=== PATIENT | female | born 1940 | race Caucasian/White ===

== ENCOUNTER → 2018-06-14 01:57 | Outpatient (CLI) | payer OTHER, SELFPAY ==
[2018-06-14 11:30] LABS: Prothrombin Time 41.7 sec (9.3-10.8)
[2018-06-14 12:05] LABS: INR 4.5 (1.0-3.5)
== END ==
PROVIDERS: PCP Family Medicine; Visit Provider Family Medicine
DX: I26.99 Other pulmonary embolism without acute cor pulmonale (principal); Z79.01 Long term (current) use of anticoagulants
CPT/HCPCS: 36415; 85610

== ENCOUNTER → 2018-06-17 01:56 | Outpatient (CLI) | payer OTHER, SELFPAY ==
[2018-06-17 12:01] LABS: INR 1.5 (1.0-3.5); Prothrombin Time 14.2 sec (9.3-10.8)
== END ==
PROVIDERS: PCP Family Medicine; Visit Provider Family Medicine
DX: I26.99 Other pulmonary embolism without acute cor pulmonale (principal); Z79.01 Long term (current) use of anticoagulants
CPT/HCPCS: 36415; 85610

== ENCOUNTER → 2018-06-24 02:25 | Outpatient (CLI) | payer OTHER, SELFPAY ==
[2018-06-24 11:28] LABS: Prothrombin Time 17.7 sec (9.3-10.8)
[2018-06-24 11:53] LABS: INR 1.8 (1.0-3.5)
== END ==
PROVIDERS: PCP Family Medicine; Visit Provider Family Medicine
DX: I26.99 Other pulmonary embolism without acute cor pulmonale (principal); Z79.01 Long term (current) use of anticoagulants
CPT/HCPCS: 36415; 85610

== ENCOUNTER → 2018-07-01 02:55 | Outpatient (CLI) | payer OTHER, SELFPAY ==
[2018-07-01 11:13] LABS: Prothrombin Time 24.1 sec (9.3-10.8)
[2018-07-01 11:21] LABS: INR 2.5 (1.0-3.5)
== END ==
PROVIDERS: PCP Family Medicine; Visit Provider Family Medicine
DX: I26.99 Other pulmonary embolism without acute cor pulmonale (principal); Z79.01 Long term (current) use of anticoagulants
CPT/HCPCS: 36415; 85610

== ENCOUNTER 2018-07-09 02:35 | Outpatient (CLI) | payer OTHER, SELFPAY ==
[2018-07-09 11:52] LABS: INR 3.9 (1.0-3.5); Prothrombin Time 36.1 sec (9.3-10.8)
== END 2018-07-09 02:55 ==
LOC: LBO 02:36 → LOS 11:02
PROVIDERS: PCP Family Medicine; Visit Provider Family Medicine
DX: I26.99 Other pulmonary embolism without acute cor pulmonale (principal); Z79.01 Long term (current) use of anticoagulants
CPT/HCPCS: 36415; 85610

== ENCOUNTER 2018-07-16 01:37 | Outpatient (CLI) | payer OTHER, SELFPAY ==
[2018-07-16 11:11] LABS: INR 1.9 (1.0-3.5); Prothrombin Time 18.4 sec (9.3-10.8)
== END 2018-07-16 01:57 ==
LOC: LBO 01:38 → LOS 11:12
PROVIDERS: PCP Family Medicine; Visit Provider Family Medicine
DX: I26.99 Other pulmonary embolism without acute cor pulmonale (principal); Z79.01 Long term (current) use of anticoagulants
CPT/HCPCS: 36415; 85610

== ENCOUNTER 2018-07-23 02:08 | Outpatient (CLI) | payer OTHER, SELFPAY ==
[2018-07-23 11:23] LABS: INR 3.4 (1.0-3.5); Prothrombin Time 31.4 sec (9.3-10.8)
== END 2018-07-23 02:28 ==
PROVIDERS: PCP Family Medicine; Visit Provider Family Medicine
DX: I26.99 Other pulmonary embolism without acute cor pulmonale (principal); Z79.01 Long term (current) use of anticoagulants
CPT/HCPCS: 36415; 85610

== ENCOUNTER 2018-07-30 01:52 | Outpatient (CLI) | payer OTHER, SELFPAY ==
[2018-07-30 11:19] LABS: INR 2.5 (1.0-3.5); Prothrombin Time 23.7 sec (9.3-10.8)
[2018-07-30 11:32] LABS: ALT 14 U/L (12-78); AST 19 U/L (15-37); Alkaline Phosphatase 90 U/L (46-116); Anion Gap 8.6 mmol/L (3-11); BUN 20 mg/dL (7-18); Bilirubin, Total 0.4 mg/dL (0.2-1.0); CO2 27.4 mmol/L (21.0-32.0); CREATININE 0.82 mg/dL (0.55-1.02); Calcium 8.1 mg/dL (8.5-10.1); Chloride 107 mmol/L (98-107); Glucose 115 mg/dL (70-100); Potassium 3.9 mmol/L (3.5-5.1); Sodium 143 mmol/L (136-145); Total Protein 6.3 g/dL (6.4-8.2)
== END 2018-07-30 02:12 ==
PROVIDERS: PCP Family Medicine; Visit Provider Family Medicine
DX: I26.99 Other pulmonary embolism without acute cor pulmonale (principal); Z79.01 Long term (current) use of anticoagulants; I10 Essential (primary) hypertension
CPT/HCPCS: 36415; 80053; 85610

== ENCOUNTER 2018-08-20 01:42 | Outpatient (CLI) | payer OTHER, SELFPAY ==
[2018-08-20 08:54] LABS: INR 1.8 (1.0-3.5); Prothrombin Time 17.6 sec (9.3-10.8)
== END 2018-08-20 02:02 ==
PROVIDERS: PCP Family Medicine; Visit Provider Family Medicine
DX: I26.99 Other pulmonary embolism without acute cor pulmonale (principal); Z79.01 Long term (current) use of anticoagulants
CPT/HCPCS: 36415; 85610

== ENCOUNTER 2018-08-27 01:18 | Outpatient (CLI) | payer OTHER, SELFPAY ==
[2018-08-27 11:08] LABS: INR 1.9 (1.0-3.5); Prothrombin Time 17.8 sec (9.3-10.8)
== END 2018-08-27 01:38 ==
PROVIDERS: PCP Family Medicine; Visit Provider Family Medicine
DX: I26.99 Other pulmonary embolism without acute cor pulmonale (principal); Z79.01 Long term (current) use of anticoagulants
CPT/HCPCS: 36415; 85610

== ENCOUNTER 2018-09-10 02:11 | Outpatient (CLI) | payer OTHER, SELFPAY ==
[2018-09-10 11:33] LABS: INR 1.3 (1.0-3.5); Prothrombin Time 12.4 sec (9.3-10.8)
== END 2018-09-10 02:31 ==
PROVIDERS: PCP Family Medicine; Visit Provider Family Medicine
DX: I26.99 Other pulmonary embolism without acute cor pulmonale (principal); Z79.01 Long term (current) use of anticoagulants
CPT/HCPCS: 36415; 85610

== ENCOUNTER 2018-09-17 01:22 | Outpatient (CLI) | payer OTHER, SELFPAY ==
[2018-09-17 11:31] LABS: INR 2.1 (1.0-3.5); Prothrombin Time 19.7 sec (9.3-10.8)
== END 2018-09-17 01:42 ==
PROVIDERS: PCP Family Medicine; Visit Provider Family Medicine
DX: I26.99 Other pulmonary embolism without acute cor pulmonale (principal); Z79.01 Long term (current) use of anticoagulants
CPT/HCPCS: 36415; 85610

== ENCOUNTER 2018-09-24 02:00 | Outpatient (CLI) | payer OTHER, SELFPAY ==
[2018-09-24 11:25] LABS: INR 3.2 (1.0-3.5); Prothrombin Time 30.2 sec (9.3-10.8)
== END 2018-09-24 02:20 ==
PROVIDERS: PCP Family Medicine; Visit Provider Family Medicine
DX: I26.99 Other pulmonary embolism without acute cor pulmonale (principal); Z79.01 Long term (current) use of anticoagulants
CPT/HCPCS: 36415; 85610

== ENCOUNTER 2018-09-30 01:59 | Outpatient (CLI) | payer OTHER, SELFPAY ==
[2018-09-30 07:40] LABS: Prothrombin Time 40.6 sec (9.3-10.8)
[2018-09-30 08:06] LABS: INR 4.4 (1.0-3.5)
== END 2018-09-30 02:19 ==
PROVIDERS: PCP Family Medicine; Visit Provider Family Medicine
DX: I26.99 Other pulmonary embolism without acute cor pulmonale (principal); Z79.01 Long term (current) use of anticoagulants
CPT/HCPCS: 36415; 85610

== ENCOUNTER 2018-10-07 08:48 | Outpatient (CLI) | payer OTHER, SELFPAY ==
[2018-10-07 13:11] LABS: INR 1.7 (1.0-3.5); Prothrombin Time 16.2 sec (9.3-10.8)
== END 2018-10-07 09:08 ==
PROVIDERS: PCP Family Medicine; Visit Provider Family Medicine
DX: I26.99 Other pulmonary embolism without acute cor pulmonale (principal); Z79.01 Long term (current) use of anticoagulants
CPT/HCPCS: 36415; 85610

== ENCOUNTER 2018-10-10 14:13 | Outpatient (REF) | payer OTHER, SELFPAY ==
[2018-10-10 20:00] LABS: Bilirubin Negative (Negative); Blood Large (Negative); Clarity Cloudy; Glucose Negative (Negative); Ketones Negative (Negative); Leukocyte Esterase Small (Negative); Nitrite Positive (Negative); Specific Gravity >= 1.030 (1.005-1.025); Urobilinogen 0.2 EU/dL (Up TO 0.2)
[2018-10-10 20:09] LABS: Bacteria Many HPF (Negative); WBC >50 HPF (0-5)
[2018-10-10 20:10] LABS: C & S Indicated? Yes
== END 2018-10-10 14:33 ==
LOC: LBN 14:13
PROVIDERS: PCP Family Medicine; Visit Provider Family Medicine
DX: N39.0 Urinary tract infection, site not specified (principal)
CPT/HCPCS: 81003; 81015; 87086; 87186

== ENCOUNTER 2018-10-15 07:54 | Outpatient (CLI) | payer OTHER, SELFPAY ==
[2018-10-15 11:18] LABS: INR 1.5 (1.0-3.5); Prothrombin Time 14.2 sec (9.3-10.8)
== END 2018-10-15 08:14 ==
PROVIDERS: PCP Family Medicine; Visit Provider Family Medicine
DX: I26.99 Other pulmonary embolism without acute cor pulmonale (principal); Z79.01 Long term (current) use of anticoagulants
CPT/HCPCS: 36415; 85610

== ENCOUNTER 2018-11-15 00:16 | Outpatient (CLI) | payer OTHER, SELFPAY ==
[2018-11-15 09:13] LABS: CREATININE 0.83 mg/dL (0.55-1.02)
[2018-11-15 09:19] LABS: Prothrombin Time 10.2 sec (9.3-11.0)
--- NOTE | 2018-11-15 09:45 | DI.CT_ITS ---
SYMPTOM/DIAGNOSIS: SOB, H/OPE, R06.[address]: CT angiography was performed with multi slice acquisition and multi planar and 3D reconstruction. Comparison is made with routine chest CT dated 01/15/16. The exam is somewhat limited by respiratory motion. The pulmonary arteries and aorta are well opacified with IV contrast. Pulmonary emboli are seen in both upper and lower lobes. The right main pulmonary artery and lower lobe branches as well as a few upper lobe branches contain thrombus. Non occluding thrombus is seen extending across both main pulmonary arteries. Filling defects are also seen in the left lower lobe pulmonary artery branches as well as a single left upper lobe branch. The pulmonary arteries appear enlarged, increasing when compared with the previous exam. The previous exam also showed some pulmonary artery enlargement. The aorta is normal in diameter and shows mild calcification. There is left atrial and left ventricular enlargement as well as coronary artery calcifications. Evaluation of the lungs is somewhat limited due to respiratory motion. Underlying changes of centrilobular emphysema are noted. No pleural or pericardial effusions or infiltrates are present. Degenerative changes are seen in the spine. There is a small hiatal hernia. Stones are noted in the dependent portion of the gallbladder. There is no abnormal gallbladder distension. The gallbladder is not fully included on the exam. The liver and spleen are unremarkable. There is an area of scarring at the upper pole of the right kidney. IMPRESSION: Bilateral pulmonary emboli.
[2018-11-15] MEDS: Omnipaque 350 MG/ML 100 ML BTL IJ (09:47)
== END 2018-11-15 00:36 ==
PROVIDERS: PCP Family Medicine; Visit Provider Family Medicine
DX: I26.99 Other pulmonary embolism without acute cor pulmonale (principal); R06.02 Shortness of breath; Z79.01 Long term (current) use of anticoagulants; K44.9 Diaphragmatic hernia without obstruction or gangrene
CPT/HCPCS: 36415; 71275; 82565; 85610; J3490

== ENCOUNTER 2018-11-25 00:55 | Outpatient (RCR) | payer OTHER, SELFPAY ==
[2018-11-17 11:24] LABS: Prothrombin Time 10.4 sec (9.3-11.0)
[2018-11-19 11:46] LABS: INR 1.5 (0.9-1.1); Prothrombin Time 14.7 sec (9.3-11.0)
[2018-11-20 11:45] LABS: Abs Immature Grans 0.01 k/cumm (0.0-0.09); Absolute Basophil Count 0.03 k/cumm (0.0-0.2); Absolute Eosinophil Count 0.07 k/cumm (0.0-0.7); Absolute Lymphocyte Count 1.11 k/cumm (1.2-3.4); Absolute Monocyte Count 0.54 k/cumm (0.11-0.7); Absolute Neutrophil Count 3.74 k/cumm (1.2-6.7); Basophils % 0.5; Eosinophils % 1.3; HCT 38.2 % (36.0-46.0); HGB 12.2 g/dL (12.0-15.5); Immature Grans % 0.2; Lymphocytes % 20.2; Mean Corp. HGB Concentration 31.9 g/dL (32.0-36.0); Mean Corpuscular Hemoglobin 30.1 pg (27.0-33.0); Mean Corpuscular Volume 94.3 fL (80-95); Monocytes % 9.8; Platelet Count 227 x1000/uL (130-400); RBC 4.05 m/cumm (4.00-5.20); RBC Distribution Width 14.9 % (11.7-14.6)
[2018-11-20 11:59] LABS: INR 1.7 (0.9-1.1); Prothrombin Time 16.7 sec (9.3-11.0)
[2018-11-21 11:32] LABS: INR 1.7 (0.9-1.1); Prothrombin Time 17.4 sec (9.3-11.0)
[2018-11-22 08:49] LABS: Prothrombin Time 20.5 sec (9.3-11.0)
== END 2018-12-05 23:59 | disposition home or self-care (01) ==
LOC: INF 00:55
PROVIDERS: PCP Family Medicine; Visit Provider Family Medicine
DX: I26.99 Other pulmonary embolism without acute cor pulmonale (principal); Z79.01 Long term (current) use of anticoagulants
CPT/HCPCS: 36415; 96365; 96372; 85025; 85610; J1650

== ENCOUNTER 2018-11-25 09:18 | Outpatient (CLI) | payer OTHER, SELFPAY ==
[2018-11-25 11:42] LABS: INR 2.1 (0.9-1.1); Prothrombin Time 21.2 sec (9.3-11.0)
== END 2018-11-25 09:38 ==
PROVIDERS: PCP Family Medicine; Visit Provider Family Medicine
DX: I26.99 Other pulmonary embolism without acute cor pulmonale (principal); Z79.01 Long term (current) use of anticoagulants
CPT/HCPCS: 36415; 85610

== ENCOUNTER 2018-11-28 07:00 | Outpatient (CLI) | payer OTHER, SELFPAY ==
[2018-11-28 12:11] LABS: INR 3.8 (0.9-1.1)
== END 2018-11-28 07:20 ==
PROVIDERS: PCP Family Medicine; Visit Provider Family Medicine
DX: I26.99 Other pulmonary embolism without acute cor pulmonale (principal); Z79.01 Long term (current) use of anticoagulants
CPT/HCPCS: 36415; 85610

== ENCOUNTER 2018-12-05 01:51 | Outpatient (CLI) | payer OTHER, SELFPAY ==
[2018-12-05 11:51] LABS: INR 1.9 (0.9-1.1); Prothrombin Time 19.4 sec (9.3-11.0)
== END 2018-12-05 02:11 ==
PROVIDERS: PCP Family Medicine; Visit Provider Family Medicine
DX: I26.99 Other pulmonary embolism without acute cor pulmonale (principal); Z79.01 Long term (current) use of anticoagulants
CPT/HCPCS: 36415; 85610

== ENCOUNTER 2018-12-11 07:48 | Outpatient (CLI) | payer OTHER, SELFPAY ==
[2018-12-11 11:33] LABS: INR 2.1 (0.9-1.1); Prothrombin Time 21.1 sec (9.3-11.0)
== END 2018-12-11 08:08 ==
PROVIDERS: PCP Family Medicine; Visit Provider Family Medicine
DX: I26.99 Other pulmonary embolism without acute cor pulmonale (principal); Z79.01 Long term (current) use of anticoagulants
CPT/HCPCS: 36415; 85610

== ENCOUNTER 2019-01-06 02:34 | Outpatient (CLI) | payer OTHER, SELFPAY ==
[2019-01-06 12:23] LABS: Prothrombin Time 10.3 sec (9.3-11.0)
== END 2019-01-06 02:54 ==
PROVIDERS: PCP Family Medicine; Visit Provider Family Medicine
DX: I26.99 Other pulmonary embolism without acute cor pulmonale (principal); Z79.01 Long term (current) use of anticoagulants
CPT/HCPCS: 36415; 85610

== ENCOUNTER 2019-02-26 15:28 | Emergency (ER) | payer OTHER, SELFPAY ==
[2019-02-26 15:45] VITALS: BP 164/72; PULSE 78; RESP 20; TEMP 36.7; O2SAT 95
--- NOTE | 2019-02-26 15:57 | W.ED.GENAD ---
Discharge Plan Disposition Patient Disposition: HOME Condition: Stable Discharge Details Chief Complaint: Urinary Clinical Impression: Acute UTI Primary Care Provider: Caridad Sánchez ED Provider: Sb Paul Home Meds and New Rx's Prescriptions: New ciprofloxacin HCl 500 mg tablet 500 mg PO BID Qty: 14 RF: 0 No Action atenolol 25 mg tablet 25 mg PO DAILY Qty: 90 RF: 4 furosemide 40 mg tablet 40 mg PO DAILY Qty: 90 RF: 4 Eliquis 5 mg tablet 5 mg PO BID Qty: 60 RF: 12 Discharge Instructions Instructions: Urinary Tract Infection in Women (ED) Medical Decision Making 79 yo female comes in with burning and frequency of urination since around 12 this afternoon similar to prior uti's. She denies fevers, abdominal pain or christianne pain and appears well systemically without cva tendernress so doubt sepsis or pyelo. will check UA as likely has cystitis ua consistent with uti, will start abx and have her f/u with pcp and return precautions given Differential Diagnosis cystitis, uti Lab Data Lab results reviewed: Yes I reviewed the patient's lab results. HPI General Mode of arrival: ambulatory. Date/Time Provider Initiated Documentation: 02/26/19 15:51. Limitations to Documentation: no limitations. Information obtained by: patient. History of Present Illness 79 year old F presents to the emergency department with the chief complaint of frequency and urinary burning, described as moderate, Patient started experiencing this hour(s) (5) and it has been constant. No relieving factors improve symptom(s), No exacerbating factors reported . Patient notes no other symptoms.. Patient did receive the following treatments prior to arrival, none Related Data Home Medications Medication Instructions Recorded Confirmed apixaban 5 mg tablet 5 mg PO BID #60 tab 11/21/18 02/11/19 atenolol 25 mg tablet 25 mg PO DAILY #90 tab-cap 02/11/19 02/11/19 furosemide 40 mg tablet 40 mg PO DAILY #90 tab-cap 02/11/19 02/11/19 ciprofloxacin HCl 500 mg PO BID #14 tab 02/26/19 Previous Rx's Medication Instructions Recorded apixaban 5 mg tablet 5 mg PO BID #60 tab 11/21/18 atenolol 25 mg tablet 25 mg PO DAILY #90 tab-cap 02/11/19 furosemide 40 mg tablet 40 mg PO DAILY #90 tab-cap 02/11/19 ciprofloxacin HCl 500 mg PO BID #14 tab 02/26/19 Allergies Allergy/AdvReac Type Severity Reaction Status Date / Time atorvastatin AdvReac Intermediate Unverified 02/11/19 14:12 General Stated Complaint: Urinary SUHA: 4 Review of Systems Review of Systems All systems reviewed & are unremarkable except as noted in HPI and below Constitutional Denies chills, Denies fever(s) and Denies weakness ENT Denies change in voice Cardiovascular Denies chest pain and Denies dyspnea Respiratory Denies cough and Denies dyspnea Gastrointestinal Denies abdominal pain, Denies nausea and Denies vomiting Neurologic Denies weakness [facility] Medical History Vitamin D deficiency (Chronic 03/11/09) Urinary incontinence (Chronic 11/10/14) Stenosis of carotid artery (Chronic 01/20/16) Pulmonary embolus (Chronic 05/10/15) Peripheral venous insufficiency (Chronic 12/03/08) Peripheral edema (Chronic 07/31/16) Low back pain (Chronic 03/04/06) Hyperlipidemia (Chronic 04/15/13) Hip pain (Chronic) Essential hypertension (Chronic 10/31/13) Dysphagia (Chronic 01/01/18) Depressive disorder (Chronic) Decreased muscle tone (Chronic) Cerebrovascular accident (CVA) (Chronic 01/20/16) Cerebral arteriovenous malformation (Chronic) Benign paroxysmal vertigo, unspecified ear (Resolved) Cataract (Resolved) Cellulitis (Resolved) History of tobacco use (Resolved) Oral ulcer (Resolved) Polyp of colon (Resolved) Poor balance (Resolved) Primary malignant neoplasm of larynx (Resolved) Seizure (Resolved) TMJ (temporomandibular joint disorder) (Resolved) Transient ischemic attack (Resolved 08/04/03) Vaginal lesion (Resolved) Visual disturbance (Resolved) Vulvovaginitis (Resolved) Benign paroxysmal vertigo Cerebral vascular malformation Depression Hyperlipidemia Hypertension Lumbago Venous insufficiency Vitamin D deficiency Surgical History History of bilateral tubal ligation (Resolved) Extraction of cataract Ligation of fallopian tube Family History Mother Vaginal cancer Father Heart disease COPD (chronic obstructive pulmonary disease) Sister Heart disease Lung cancer Maternal Grandmother Heart disease Paternal Grandmother Diabetes Son Substance abuse Heart disease Sister No problems noted. Sister No problems noted. Son RA (rheumatoid arthritis) Daughter No problems noted. Daughter No problems noted. Paternal Grandfather No problems noted. Social History Smoking/Tobacco Use Status: Former Tobacco Use Quit Date: 06/05/01 Second Hand Exposure: Yes Alcohol Intake: current Alcohol Intake frequency: holidays/special occasions only Alcohol type: wine Drug use: Never Substance use type: does not use Caregiver/Support person: No Household members: none Housing: house Do you need help understanding health information?: Rarely Pets and animals: No Sexually active: No Current gender identity: female What is your relationship status?: How often do you talk on the phone with friends or family?: decline to answer How often do you get together with friends or relatives?: once per week How often do you attend moravian or restorationism services?: decline to answer Do you belong to any clubs or organized social groups?: no Panel score (0-1 are the most socially isolated patients): 0 What type of physical activity do you participate in: decline to answer Duration: decline to answer Frequency: decline to answer Bethany/Yarsani: Confucianist Special bethany needs: No Seatbelt use: always Helmet use: No Drive intox or ride w/intox emergency medical technician/driver: No Do you feel safe at home: Yes Do you feel safe in your relationship?: Yes Exam Const General: no acute distress Orientation: alert HENMT Head: normal to inspection Ears: external ears normal General nose exam: external nose normal Mouth: moist mucous membranes Eyes General: appearance normal, both eyes and all related structures Neck Neck: normal visual inspection Resp Effort & Inspection: normal respiratory effort and able to speak in complete sentences Cardio Rate: regular rate Skin General skin exam: no rashes or lesions noted Neuro General: alert and oriented x3 Extrem General: normal to inspection Psych Mental Status: mental status grossly normal Course Vital Signs Temperature 36.7 C 02/26/19 15:45 Pulse 78 02/26/19 15:45 Respiratory Rate 20 02/26/19 15:45 Blood Pressure 164/72 H 02/26/19 15:45 Pulse Oximetry 95 02/26/19 15:45 Temperature 36.7 C 02/26/19 15:45 Temperature Source Temporal Artery Scan 02/26/19 15:45 Pulse 78 02/26/19 15:45 Respiratory Rate 20 02/26/19 15:45 Respiratory Effort Non-Labored 02/26/19 15:50 Blood Pressure 164/72 H 02/26/19 15:45 Pulse Oximetry 95 02/26/19 15:45 Pain Level 8 02/26/19 15:50
--- NOTE | 2019-02-26 16:01 | ED.GENADUL_ITS ---
Discharge Plan Disposition Patient Disposition: HOME Condition: Stable Discharge Details Chief Complaint: Urinary Clinical Impression: Acute UTI Primary Care Provider: Caridad Sánchez ED Provider: Sb Paul Home Meds and New Rx's Prescriptions: New ciprofloxacin HCl 500 mg tablet 500 mg PO BID Qty: 14 RF: 0 No Action atenolol 25 mg tablet 25 mg PO DAILY Qty: 90 RF: 4 furosemide 40 mg tablet 40 mg PO DAILY Qty: 90 RF: 4 Eliquis 5 mg tablet 5 mg PO BID Qty: 60 RF: 12 Discharge Instructions Instructions: Urinary Tract Infection in Women (ED) Medical Decision Making 79 yo female comes in with burning and frequency of urination since around 12 this afternoon similar to prior uti's. She denies fevers, abdominal pain or christianne pain and appears well systemically without cva tendernress so doubt sepsis or pyelo. will check UA as likely has cystitis ua consistent with uti, will start abx and have her f/u with pcp and return precautions given Differential Diagnosis cystitis, uti Lab Data Lab results reviewed: Yes I reviewed the patient's lab results. HPI General Mode of arrival: ambulatory . Date/Time Provider Initiated Documentation: 02/26/19 15:51 . Limitations to Documentation: no limitations . Information obtained by: patient . History of Present Illness 79 year old F presents to the emergency department with the chief complaint of frequency and urinary burning, described as moderate, Patient started experiencing this hour(s) (5) and it has been constant. No relieving factors improve symptom(s), No exacerbating factors reported . Patient notes no other symptoms.. Patient did receive the following treatments prior to arrival, none Related Data Home Medications Medication Instructions Recorded Confirmed apixaban 5 mg tablet 5 mg PO BID #60 tab 11/21/18 02/11/19 atenolol 25 mg tablet 25 mg PO DAILY #90 tab-cap 02/11/19 02/11/19 furosemide 40 mg tablet 40 mg PO DAILY #90 tab-cap 02/11/19 02/11/19 ciprofloxacin HCl 500 mg PO BID #14 tab 02/26/19 Previous Rx's Medication Instructions Recorded apixaban 5 mg tablet 5 mg PO BID #60 tab 11/21/18 atenolol 25 mg tablet 25 mg PO DAILY #90 tab-cap 02/11/19 furosemide 40 mg tablet 40 mg PO DAILY #90 tab-cap 02/11/19 ciprofloxacin HCl 500 mg PO BID #14 tab 02/26/19 Allergies Allergy/AdvReac Type Severity Reaction Status Date / Time atorvastatin AdvReac Intermediate Unverified 02/11/19 14:12 General Stated Complaint: Urinary SUHA: 4 Review of Systems Review of Systems All systems reviewed & are unremarkable except as noted in HPI and below Constitutional Denies chills, Denies fever(s) and Denies weakness ENT Denies change in voice Cardiovascular Denies chest pain and Denies dyspnea Respiratory Denies cough and Denies dyspnea Gastrointestinal Denies abdominal pain, Denies nausea and Denies vomiting Neurologic Denies weakness [facility] Medical History Vitamin D deficiency (Chronic 03/11/09) Urinary incontinence (Chronic 11/10/14) Stenosis of carotid artery (Chronic 01/20/16) Pulmonary embolus (Chronic 05/10/15) Peripheral venous insufficiency (Chronic 12/03/08) Peripheral edema (Chronic 07/31/16) Low back pain (Chronic 03/04/06) Hyperlipidemia (Chronic 04/15/13) Hip pain (Chronic) Essential hypertension (Chronic 10/31/13) Dysphagia (Chronic 01/01/18) Depressive disorder (Chronic) Decreased muscle tone (Chronic) Cerebrovascular accident (CVA) (Chronic 01/20/16) Cerebral arteriovenous malformation (Chronic) Benign paroxysmal vertigo, unspecified ear (Resolved) Cataract (Resolved) Cellulitis (Resolved) History of tobacco use (Resolved) Oral ulcer (Resolved) Polyp of colon (Resolved) Poor balance (Resolved) Primary malignant neoplasm of larynx (Resolved) Seizure (Resolved) TMJ (temporomandibular joint disorder) (Resolved) Transient ischemic attack (Resolved 08/04/03) Vaginal lesion (Resolved) Visual disturbance (Resolved) Vulvovaginitis (Resolved) Benign paroxysmal vertigo Cerebral vascular malformation Depression Hyperlipidemia Hypertension Lumbago Venous insufficiency Vitamin D deficiency Surgical History History of bilateral tubal ligation (Resolved) Extraction of cataract Ligation of fallopian tube Family History Mother Vaginal cancer Father Heart disease COPD (chronic obstructive pulmonary disease) Sister Heart disease Lung cancer Maternal Grandmother Heart disease Paternal Grandmother Diabetes Son Substance abuse Heart disease Sister No problems noted. Sister No problems noted. Son RA (rheumatoid arthritis) Daughter No problems noted. Daughter No problems noted. Paternal Grandfather No problems noted. Social History Smoking/Tobacco Use Status: Former Tobacco Use Quit Date: 06/05/01 Second Hand Exposure: Yes Alcohol Intake: current Alcohol Intake frequency: holidays/special occasions only Alcohol type: wine Drug use: Never Substance use type: does not use Caregiver/Support person: No Household members: none Housing: house Do you need help understanding health information?: Rarely Pets and animals: No Sexually active: No Current gender identity: female What is your relationship status?: How often do you talk on the phone with friends or family?: decline to answer How often do you get together with friends or relatives?: once per week How often do you attend caodaism or jehovah's witness services?: decline to answer Do you belong to any clubs or organized social groups?: no Panel score (0-1 are the most socially isolated patients): 0 What type of physical activity do you participate in: decline to answer Duration: decline to answer Frequency: decline to answer Bethany/Mosque: Yazidism Special bethany needs: No Seatbelt use: always Helmet use: No Drive intox or ride w/intox ready mix truck driver: No Do you feel safe at home: Yes Do you feel safe in your relationship?: Yes Exam Const General: no acute distress Orientation: alert HENMT Head: normal to inspection Ears: external ears normal General nose exam: external nose normal Mouth: moist mucous membranes Eyes General: appearance normal, both eyes and all related structures Neck Neck: normal visual inspection Resp Effort & Inspection: normal respiratory effort and able to speak in complete sentences Cardio Rate: regular rate Skin General skin exam: no rashes or lesions noted Neuro General: alert and oriented x3 Extrem General: normal to inspection Psych Mental Status: mental status grossly normal Course Vital Signs Temperature 36.7 C 02/26/19 15:45 Pulse 78 02/26/19 15:45 Respiratory Rate 20 02/26/19 15:45 Blood Pressure 164/72 H 02/26/19 15:45 Pulse Oximetry 95 02/26/19 15:45 Temperature 36.7 C 02/26/19 15:45 Temperature Source Temporal Artery Scan 02/26/19 15:45 Pulse 78 02/26/19 15:45 Respiratory Rate 20 02/26/19 15:45 Respiratory Effort Non-Labored 02/26/19 15:50 Blood Pressure 164/72 H 02/26/19 15:45 Pulse Oximetry 95 02/26/19 15:45 Pain Level 8 02/26/19 15:50
[2019-02-26 16:40] LABS: Bilirubin Negative (Negative); Blood Trace-intact (Negative); Clarity Clear; Glucose Negative (Negative); Ketones Negative (Negative); Leukocyte Esterase Small (Negative); Nitrite Positive (Negative); Specific Gravity 1.025 (1.005-1.025); Urobilinogen 0.2 EU/dL (Up TO 0.2)
[2019-02-26 16:48] LABS: Bacteria Many HPF (Negative); C & S Indicated? No/Sq. Contamination; Casts Negative LPF (Negative); Crystals Negative HPF (Negative); Epithelial Cells Many HPF (Negative); Mucus Negative (Negative); RBC 20-50 (0-2); WBC >50 HPF (0-5)
[2019-02-26 16:59] VITALS: BP 164/72; PULSE 78; RESP 20; TEMP 36.7; O2SAT 95
== END 2019-02-26 16:59 | disposition home or self-care (01) ==
PROVIDERS: Emergency Provider Emergency Medicine; PCP Family Medicine
DX: N39.0 Urinary tract infection, site not specified (principal); I10 Essential (primary) hypertension
CPT/HCPCS: 99283; 81003; 81015

== ENCOUNTER 2019-06-04 01:09 | Outpatient (CLI) | payer OTHER, SELFPAY ==
[2019-06-04 10:08] LABS: BUN 15 mg/dL (7-18); CREATININE 0.74 mg/dL (0.55-1.02)
[2019-06-04] MEDS: Omnipaque 350 MG/ML 100 ML BTL IJ (11:21)
[2019-06-04] MEDS: Normal Saline Flush 10 ML SYR IVP (11:22)
--- NOTE | 2019-06-04 11:23 | DI.CT_ITS ---
SYMPTOM/DIAGNOSIS: J38.[address] NECK: The study was carried out with an intravenous administration of 100 cc of Omnipaque 350. The oral pharynx and nasopharynx and hypopharynx are normal. The larynx is normal. The retropharyngeal space is unremarkable. The submandibular and parotid glands appear intact. No abnormality involving the thyroid is seen. There is no evidence of lymphadenopathy. The trachea appears intact. Note is made of fluid in the upper pericardial recess around the ascending aorta and between the aorta and pulmonary artery most likely secondary to a pericardial effusion. Note is made of central lobular emphysema in the upper lobes. There is mild atherosclerotic changes involving the aorta with no evidence of aneurysm. Note is made of degenerative changes involving the discs in the cervical spine. The soft tissues are unremarkable. SUMMARY: Fluid in the upper pericardial recess most likely representing a pericardial effusion. Further evaluation with a chest CT could be obtained. Note is also made of emphysema in the upper lobes. The examination is otherwise unremarkable.
--- NOTE | 2019-06-04 17:19 | DI.VRAD_ITS ---
EXAM: CT Neck With Contrast EXAM DATE/TIME: 06/04/2019 11:21 AM CLINICAL HISTORY: 79 years old, female; Other: Vocal cord paralysis TECHNIQUE: Imaging protocol: Axial computed tomography images of the neck with intravenous contrast. Coronal and sagittal reformatted images were created and reviewed. Radiation optimization: All CT scans at this facility use at least one of these dose optimization techniques: automated exposure control; mA and/or kV adjustment per patient size (includes targeted exams where dose is matched to clinical indication); or iterative reconstruction. Contrast material: OMNIPAQUE 3502;Contrast volume: 100 ml;Contrast route: IV; COMPARISON: US CAROTID ULTRASOUND 01/21/2016 5:38 PM FINDINGS: Nasopharynx: Normal. Oropharynx: Normal. No significant tonsillar enlargement. Hypopharynx: Normal. Larynx: Normal. Normal epiglottis. Retropharyngeal space: Normal. Submandibular/Parotid glands: Normal. Glands are normal in size. Thyroid: Normal. No enlarged or calcified nodules. Lymph nodes: Normal. No lymphadenopathy. Trachea: Visualized trachea is unremarkable. Lungs: There is fluid in the upper pericardial recess around the ascending aorta and an between the aorta and pulmonary artery most likely secondary to pericardial effusion. Centrilobular emphysematous changes are present in the upper lobes. Vasculature: Aorta demonstrates mild atherosclerotic calcification. Bones/joints: There is degenerative changes with degenerative disc disease involving the cervical spine. There is curvature of the cervical spine apex right. Soft tissues: Normal. No significant soft tissue swelling. IMPRESSION: 1. Fluid in the upper pericardial recess most likely representing pericardial effusion. Followup CT the chest is recommended. 2. Changes of centrilobular emphysema in the upper lobes bilaterally. Dictated and Authenticated by: Stiven Sampson MD. Ordering:JASON Tenorio MD
== END 2019-06-04 01:29 ==
PROVIDERS: PCP Family Medicine; Visit Provider Otolaryngology
DX: J38.01 Paralysis of vocal cords and larynx, unilateral (principal); I31.3 Pericardial effusion (noninflammatory); J43.9 Emphysema, unspecified; I10 Essential (primary) hypertension; Z13.89 Encounter for screening for other disorder
CPT/HCPCS: 70491; 84520; 82565; J3490

== ENCOUNTER 2019-07-31 16:40 | Emergency (ER) | payer OTHER, SELFPAY ==
[2019-07-31] VITALS (16 sets, daily range): BP systolic 126–180; BP diastolic 66–74; PULSE 68–79; RESP 16–21; TEMP 36.9; O2SAT 93–99
--- NOTE | 2019-07-31 17:07 | W.ED.GENAD ---
Discharge Plan Disposition Patient Disposition: HOME Condition: Fair Discharge Details Chief Complaint: RespSymp Clinical Impression: URI (upper respiratory infection) Primary Care Provider: Caridad Sánchez ED Provider: Flaca Johnson Home Meds and New Rx's Prescriptions: Continued atenolol 25 mg tablet 25 mg PO DAILY Qty: 90 RF: 4 furosemide 40 mg tablet 40 mg PO DAILY Qty: 90 RF: 4 Eliquis 5 mg tablet 5 mg PO BID Qty: 60 RF: 12 Discharge Instructions Instructions: Upper Respiratory Infection (ED) Additional Instructions: Encourage hydration. You may use Tylenol as needed for discomfort. May try an antihistamine to help with your chronic cough. Try warm water and honey to help with cough. If you develop fever/chills, difficulty breathing, shortness of breath, chest pain, inability stay hydrated or other new/worsening symptoms please seek care urgently once again. Otherwise, please keep your follow-up appointment with primary care tomorrow. Referrals: Caridad Sánchez MD, PA [Primary Care Provider] - Discharge Data Discharge Date/Time-TO BE ENTERED AT DEPARTURE: 07/31/19 19:08 Medical Decision Making Patient is an 79-year-old female with complex past medical history presenting today with chief complaint of cough. Patient reports that 6 days ago she had multiple biopsies from her larynx at [facility]. Patient does have a history of cancer and there is concern for recurrent. States she has been feeling well in the postoperative., Has been on her Eliquis since postop day 1. Denies any pain, no sore throat. States that she began having cough last night as well as nasal congestion. States she been having some yellow sputum. Patient reports cough with yellow sputum x2 years but that this has increased consistent with infectious etiology beginning last night. Family reports that she has sounded laryngitic today. Patient denies any chest pain. Patient does have history of pulmonary embolism, has been taking her Eliquis as prescribed. She does not feel that this is a similar to symptoms she has had with pulmonary embolus historically. No known sick contacts. She has not had any hematemesis. On exam, patient is resting comfortably. Patient is an overweight female, appears nontoxic. She is initially noted to be hypertensive at 180/67 by nursing staff but when I evaluated the patient, her systolic was in the 130s. She is not hypoxic, is not tachycardic. Lungs are clear in all ferreira. Normal cardiac exam. Abdomen is benign. Normal HEENT exam. I do not note any cough while in with the patient. I do not see any blood in the posterior oropharynx. As the patient has reported a cough for the past 2 years with no known source, I will obtain chest x-ray particularly given her cancerous history. Chest x-ray was reviewed by radiologist: Lungs: There is mild scarring in the lungs especially the lung bases. Pleural space: Unremarkable. No pleural effusion. No pneumothorax. Heart/Mediastinum: Unremarkable. No cardiomegaly. Vasculature: There is moderate atherosclerosis of the thoracic aorta. Bones/joints: There is mild spondylosis in the thoracic spine. IMPRESSION: Chronic changes but no acute cardiopulmonary process. Discussed the x-ray as well as the incidentals with the patient and her family. Advised that her illness is likely viral. I do not see any evidence of bacterial infection I advised against any antibiotics at this point. She does have a follow-up with ENT next week to discuss the biopsy results. Patient [place] has an appointment scheduled for tomorrow with her primary care physician. Family particular is concerned for pulmonary embolus. However, the patient has not tachycardic, hypoxic, short of breath and has other source of her current symptoms i.e. congestion and yellow sputum, I do not feel that work-up for pulmonary embolus is necessary. I did discuss this at length with patient and her family. I did offer further evaluation including labs and CT scan with the patient who is adamant that she does not want any of these evaluations completed at this time. Encourage hydration. We discussed home and [id number] medications/remedies that may be of benefit. She was given strict return precautions. She will keep her primary care appointment for tomorrow for reevaluation. All the questions and concerns were addressed in agreement with this plan. HPI General Mode of arrival: ambulatory. Date/Time Provider Initiated Documentation: 07/31/19 17:07. Limitations to Documentation: no limitations. Information obtained by: patient, family (accompanied by daughter and grandaughter) and RN notes reviewed. History of Present Illness 79 year old F presents to the emergency department with the chief complaint of cough, described as moderate, with intensity rated at 1 (denies any pain with cough). Patient started experiencing this day(s) (started last night but mild, cough became more frequent today) and it has been constant. No relieving factors improve symptom(s), No exacerbating factors reported . Patient notes cough and shortness of breath (reports hearing my breathing when I cough); denies chest pain, diaphoresis, fever/chills, headaches, loss of appetite, malaise, nausea/vomiting, rash, syncope and weakness. Patient did receive the following treatments prior to arrival, none Related Data Home Medications Medication Instructions Recorded Confirmed apixaban 5 mg tablet 5 mg PO BID #60 tab 11/21/18 07/31/19 atenolol 25 mg tablet 25 mg PO DAILY #90 tab-cap 02/11/19 07/31/19 furosemide 40 mg tablet 40 mg PO DAILY #90 tab-cap 02/11/19 07/31/19 Previous Rx's Medication Instructions Recorded apixaban 5 mg tablet 5 mg PO BID #60 tab 11/21/18 atenolol 25 mg tablet 25 mg PO DAILY #90 tab-cap 02/11/19 furosemide 40 mg tablet 40 mg PO DAILY #90 tab-cap 02/11/19 Allergies Allergy/AdvReac Type Severity Reaction Status Date / Time atorvastatin AdvReac Intermediate pt does Unverified 07/31/19 16:51 not think she has an allergy to this med General Stated Complaint: RespSymp SUHA: 3 Review of Systems Constitutional Constitutional: Reports as per HPI and Denies headache(s) Eyes Eyes: Reports as per HPI, Denies eye discharge and Denies irritation ENT Ears, Nose, Mouth, and Throat: Reports as per HPI and Denies headache(s) Cardiovascular Cardiovascular: Reports as per HPI, Denies chest pain and Denies dyspnea Respiratory Respiratory: Reports as per HPI and Denies dyspnea Gastrointestinal Gastrointestinal: Reports as per HPI, Denies abdominal pain, Denies change in bowel habits, Denies nausea and Denies vomiting Integumentary/Breasts Skin/Breast: Reports as per HPI and Denies rash Neurologic Neurologic: Reports as per HPI and Denies headache(s) [facility] Medical History Benign paroxysmal vertigo Benign paroxysmal vertigo, unspecified ear (Resolved) Cataract (Resolved) O.U 02/24/14; Dr. Martin left extraction 03/10/14; Dr. 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 L hip-mild acetabular spurring 2014 - severe arthritis at facet joints Lumbago Oral ulcer (Resolved) 12/07/16 Peripheral edema (Chronic 07/31/16) Peripheral venous insufficiency (Chronic 12/03/08) edema Polyp of colon (Resolved) colonoscopy of 01/09/11-multiple polyps at multiple locations. 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 Very hard to regulate and cannot afford alternatives. Understands the risks. Repeat again - PE. back on anticoagualtion Seizure (Resolved) ? of seizures; on medication for time; now off w/no change Stenosis of carotid artery (Chronic 01/20/16) carotid us 01/18 TMJ (temporomandibular joint disorder) (Resolved) right Transient ischemic attack (Resolved 08/04/03) POS MRI R TEMPORAL LOBE. NEG ECHO 2000 Urinary incontinence (Chronic 11/10/14) Vaginal lesion (Resolved) 03/22/16 Venous insufficiency Visual disturbance (Resolved) etiology unclear per -exam of 03/14/11 Vitamin D deficiency Vitamin D deficiency (Chronic 03/11/09) Vulvovaginitis (Resolved) Surgical History Extraction of cataract 02/24/14; LEFT EYE 03/10/14; RIGHT EYE History of bilateral tubal ligation (Resolved) Ligation of fallopian tube Social History Smoking/Tobacco Use Status: Former Tobacco Use Quit Date: 06/05/01 Second Hand Exposure: Yes Alcohol Intake: current Alcohol Intake frequency: holidays/special occasions only Alcohol type: wine Drug use: Never Substance use type: does not use Caregiver/Support person: No Household members: none Housing: house Do you need help understanding health information?: Rarely Pets and animals: No Sexually active: No Current gender identity: female What is your relationship status?: How often do you talk on the phone with friends or family?: decline to answer How often do you get together with friends or relatives?: once per week How often do you attend taoism or pentecostal services?: decline to answer Do you belong to any clubs or organized social groups?: no Panel score (0-1 are the most socially isolated patients): 0 What type of physical activity do you participate in: decline to answer Duration: decline to answer Frequency: decline to answer Bethnay/Scientologist: Pentecostal Special bethany needs: No Seatbelt use: always Helmet use: No Drive intox or ride w/intox bookmobile driver: No Do you feel safe at home: Yes Do you feel safe in your relationship?: Yes Exam Const General: cooperative, healthy appearing, comfortable, no acute distress, well developed and well groomed Nutritional Appearance: well nourished and overweight Orientation: alert and awake [facility] Head: normal to inspection, normocephalic and atraumatic Ears: hearing grossly normal bilaterally, external ears normal and TM's normal bilaterally General nose exam: external nose normal and nares normal Face and sinus: normal facial exam, sinuses nontender and face symmetric Mouth: oral mucosae normal, lip normal, tongue normal, oropharynx normal and moist mucous membranes Teeth and gingiva: dentition normal Throat: posterior oropharynx normal, tonsils normal and uvula midline Eyes General: appearance normal, both eyes and all related structures Neck Neck: normal visual inspection, full ROM, no lymphadenopathy and no meningeal signs Resp Effort & Inspection: normal respiratory effort, able to speak in complete sentences and no respiratory distress Auscultation: clear to auscultation bilaterally, no rales, no rhonchi and no wheezes Cardio Rate: regular rate Rhythm: regular rhythm Heart Sounds: S1 normal and S2 normal GI Inspection: normal to inspection and obesity Palpation: soft and no hepatosplenomegaly Percussion: normal to percussion Auscultation: normal bowel sounds Skin General skin exam: no rashes or lesions noted Neuro General: alert and awake Cognition: normal cognition Speech: speech normal Gait: normal gait Psych Appearance: grossly normal and well kempt Mental Status: mental status grossly normal Speech and Movement: speech and movement normal Course Vital Signs Vital signs: Vital Signs Temperature 36.9 C 07/31/19 16:42 Pulse 72 07/31/19 16:42 Respiratory Rate 07/31/19 16:42 Blood Pressure 180/67 H 07/31/19 16:42 Pulse Oximetry 97 07/31/19 16:42 Temperature 36.9 C 07/31/19 16:42 Temperature Source Skin 07/31/19 16:42 Pulse 72 07/31/19 16:42 Respiratory Rate 20 07/31/19 16:42 Respiratory Effort 07/31/19 16:54 Blood Pressure 180/67 H 07/31/19 16:42 Pulse Oximetry 97 07/31/19 16:42 Oxygen Delivery Method Room Air 07/31/19 16:42 Oxygen Flow Rate 0 07/31/19 16:42 Pain Level 0 07/31/19 16:42
--- NOTE | 2019-07-31 17:33 | DI.RAD_ITS ---
EXAM: XR CHEST 2V PA LATERAL INDICATION: cough. COMPARISON: BARIUM SWALLOW ONLY from 01/03/2018 TECHNIQUE: 2D digital imaging was performed. FINDINGS: The heart is at the upper limits of normal in size. There appear to be mild changes of COPD and pulm onary scarring. No pleural effusion. No focal consolidation. IMPRESSION: No evidence of acute process
--- NOTE | 2019-07-31 18:32 | DI.VRAD_ITS ---
PROCEDURE INFORMATION: Exam: XR Chest, 2 Views Exam date and time: 07/31/2019 5:34 PM Clinical history: 79 years old, female; Other: Cough TECHNIQUE: Imaging protocol: XR of the chest Views: 2 views. COMPARISON: CT CHEST FOR PE, ABD PELVIS W 01/15/2016 8:20 PM FINDINGS: Lungs: There is mild scarring in the lungs especially the lung bases. Pleural space: Unremarkable. No pleural effusion. No pneumothorax. Heart/Mediastinum: Unremarkable. No cardiomegaly. Vasculature: There is moderate atherosclerosis of the thoracic aorta. Bones/joints: There is mild spondylosis in the thoracic spine. IMPRESSION: Chronic changes but no acute cardiopulmonary process. Dictated and Authenticated by: Sb Tejada MD. Ordering:MATTHEW Thayer MD
== END 2019-07-31 19:08 | disposition home or self-care (01) ==
PROVIDERS: Emergency Provider Physician Assistant; PCP Family Medicine
DX: J06.9 Acute upper respiratory infection, unspecified (principal); I10 Essential (primary) hypertension; I26.99 Other pulmonary embolism without acute cor pulmonale; Z79.01 Long term (current) use of anticoagulants
CPT/HCPCS: 99283; 71046; 99282

== ENCOUNTER 2019-11-30 09:37 | Emergency (ER) | payer OTHER, SELFPAY ==
[2019-11-30] VITALS (43 sets, daily range): BP systolic 122–171; BP diastolic 40–67; PULSE 86–105; RESP 8–34; TEMP 34–36.9; O2SAT 85–99
--- NOTE | 2019-11-30 10:02 | W.ED.GENAD ---
Discharge Plan Disposition Patient Disposition: HOME Condition: Stable Discharge Details Chief Complaint: GenMedical Clinical Impression: Tracheostomy care Primary Care Provider: Caridad Sánchez ED Provider: Howard Tsai Home Meds and New Rx's Prescriptions: Continued atenolol 25 mg tablet 25 mg PO DAILY Qty: 90 RF: 4 albuterol sulfate 90 mcg/actuation HFA aerosol inhaler 2 puff IH QID PRN (Reason: shortness of breath or wheezing) Qty: 8.5 RF: 0 Eliquis 5 mg tablet 5 mg PO BID Qty: 60 RF: 12 furosemide 80 mg tablet 80 mg PO BID Qty: 180 RF: 4 ipratropium-albuterol 0.5 mg-3 mg(2.5 mg base)/3 mL solution for nebulization 3 ml IH QID PRN (Reason: wheezing. J44.9) Qty: 180 RF: 8 nystatin 100,000 unit/mL suspension 500,000 unit BC QID Qty: 250 RF: 0 guaifenesin [Tussin Mucus-Chest Congestion] 100 mg/5 mL liquid 400 mg PO BID Qty: 1000 RF: 0 metoprolol succinate 25 mg Tablet Extended Release 24 Hr 12.5 mg PO BID RF: 0 metformin 500 mg/5 mL Solution 500 mg BID RF: 0 Discharge Instructions Additional Instructions: Continue all regular medications. May use the provided Benadryl cream twice daily for itching. Apply to areas that are affected. Follow-up with your appointments this week as planned. You were seen by care management in the ER. Home health will continue their visits. Return for any acute concern. Medical Decision Making 79-year-old female who is past medical history includes pulmonary embolism, squamous cell carcinoma, vocal cord carcinoma, status post radiation, who underwent fairing goal laryngectomy and thyroidectomy at [facility] that was complicated by an abscess and fluid collection, subsequent postoperative multi lobar pneumonia, pulmonary hemorrhage that required inhaled TXA. She was discharged from [facility] 4 days ago and is been at home where she wishes to remain. This morning she had bloody mucus from her tracheostomy, was brought in by ambulance. She is slightly hypertensive, pulse slightly elevated, but interactive and communicates by writing. She is accompanied by her daughter. Patient clearly states she wishes to remain in her home and is ready to transition to palliative/hospice care. We discussed that she may have mass, bleeding, abscess and that screening blood work and a CT scan will be obtained. Patient was placed on humidified oxygen, gentle suction was provided and the tracheostomy was cleared. No persistent bleeding. Labs reveal a white blood cell count 11, medic at 32, platelets 458. INR 1.1, chemistries unremarkable. CT images: No large pulmonary emboli. Aortic atherosclerotic calcification. Emphysematous changes Patient evaluated by care management in the ER. They have already engaged home health and will have both nursing and MAT MAN assistance. Patient improved had no further bleeding. She remained clear in her wishes to return to home. She was discharged home with ongoing home health visits. Lab Data Lab results reviewed: Yes I reviewed the patient's lab results. Labs: Laboratory Results - last 24 hr 11/30/19 11/30/19 11/30/19 09:50 09:50 09:50 WBC 11.05 H RBC 3.50 L Hgb 10.0 L Hct 32.8 L MCV 93.7 MCH 28.6 MCHC 30.5 L RDW 16.0 H Plt Count 458 H MPV 9.8 Immature Gran % 0.2 Neutrophils % 79.0 Lymphocytes % 10.7 Monocytes % 7.2 Eosinophils % 2.6 Basophils % 0.3 Absolute Neutrophils 8.73 H Absolute Lymphocytes 1.18 L Absolute Monocytes 0.80 H Absolute Eosinophils 0.29 Absolute Basophils 0.03 PT 11.1 H INR 1.1 Sodium 141 Potassium 3.7 Chloride 102 Carbon Dioxide 31.0 Anion Gap 8.0 BUN 15 Creatinine 0.68 Estimated GFR/1.73 m2 >= 60.00 Glucose 192 H Calcium 9.0 Total Bilirubin 0.4 AST 25 ALT 28 Alkaline Phosphatase 106 Total Protein 8.0 Albumin 2.9 L HPI General Mode of arrival: EMS. Date/Time Provider Initiated Documentation: 11/30/19 10:19. Limitations to Documentation: no limitations. Information obtained by: patient, family and EMS. History of Present Illness 79 year old F presents to the emergency department with the chief complaint of 79-year-old female with bloody secretions from trach at home, described as similar to prior episodes, and is localized to the neck. Patient reports no radiation. Patient started experiencing this hour(s) and it has been intermittent. No relieving factors improve symptom(s), No exacerbating factors reported . Patient did receive the following treatments prior to arrival, other (Suction) Related Data Home Medications Medication Instructions Recorded Confirmed apixaban 5 mg tablet 5 mg PO BID #60 tab 11/21/18 11/30/19 atenolol 25 mg tablet 25 mg PO DAILY #90 tab-cap 02/11/19 08/21/19 albuterol sulfate 90 mcg/actuation 2 puff IH QID PRN #8.5 gm 08/01/19 08/21/19 aerosol inhaler furosemide 80 mg tablet 80 mg PO BID #180 tab-cap 11/28/19 11/30/19 ipratropium 0.5 mg-albuterol 3 mg 3 ml IH QID PRN #180 ml 11/28/19 (2.5 mg base)/3 mL nebulization soln guaifenesin 100 mg/5 mL oral liquid 400 mg PO BID #1000 ml 11/29/19 11/30/19 nystatin 100,000 unit/mL oral 500,000 unit BC QID #250 ml 11/29/19 11/30/19 suspension metformin 500 mg BID 11/30/19 11/30/19 metoprolol succinate 12.5 mg PO BID 11/30/19 11/30/19 Previous Rx's Medication Instructions Recorded apixaban 5 mg tablet 5 mg PO BID #60 tab 11/21/18 atenolol 25 mg tablet 25 mg PO DAILY #90 tab-cap 02/11/19 albuterol sulfate 90 mcg/actuation 2 puff IH QID PRN #8.5 gm 08/01/19 aerosol inhaler furosemide 80 mg tablet 80 mg PO BID #180 tab-cap 11/28/19 ipratropium 0.5 mg-albuterol 3 mg 3 ml IH QID PRN #180 ml 11/28/19 (2.5 mg base)/3 mL nebulization soln guaifenesin 100 mg/5 mL oral liquid 400 mg PO BID #1000 ml 11/29/19 nystatin 100,000 unit/mL oral 500,000 unit BC QID #250 ml 11/29/19 suspension Allergies Allergy/AdvReac Type Severity Reaction Status Date / Time atorvastatin AdvReac Intermediate pt does Unverified 11/30/19 10:21 not think she has an allergy to this med General Stated Complaint: GenMedical SUHA: 3 Review of Systems Narrative: No fever, is able to eat pur?ed diet, no vomiting, positive bowel movements. 6 systems reviewed and otherwise negative [facility] Medical History Benign paroxysmal vertigo Benign paroxysmal vertigo, unspecified ear (Resolved) Cataract (Resolved) O.U 02/24/14; Dr. Martin left extraction 03/10/14; Dr. 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 L hip-mild acetabular spurring 2014 - severe arthritis at facet joints Lumbago Oral ulcer (Resolved) 12/07/16 Peripheral edema (Chronic 07/31/16) Peripheral venous insufficiency (Chronic 12/03/08) edema Polyp of colon (Resolved) colonoscopy of 01/09/11-multiple polyps at multiple locations. 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 Very hard to regulate and cannot afford alternatives. Understands the risks. Repeat again - PE. back on anticoagualtion Seizure (Resolved) ? of seizures; on medication for time; now off w/no change Stenosis of carotid artery (Chronic 01/20/16) carotid us 01/18 TMJ (temporomandibular joint disorder) (Resolved) right Transient ischemic attack (Resolved 08/04/03) POS MRI R TEMPORAL LOBE. NEG ECHO 2000 Urinary incontinence (Chronic 11/10/14) Vaginal lesion (Resolved) 03/22/16 Venous insufficiency Visual disturbance (Resolved) etiology unclear per -exam of 03/14/11 Vitamin D deficiency Vitamin D deficiency (Chronic 03/11/09) Vulvovaginitis (Resolved) Social History Smoking/Tobacco Use Status: Former Tobacco Use Quit Date: 06/05/01 Second Hand Exposure: Yes Alcohol Intake: current Alcohol Intake frequency: holidays/special occasions only Alcohol type: wine Drug use: Never Substance use type: does not use Caregiver/Support person: No Household members: none Housing: house Do you need help understanding health information?: Rarely Pets and animals: No Sexually active: No Current gender identity: female What is your relationship status?: How often do you talk on the phone with friends or family?: decline to answer How often do you get together with friends or relatives?: once per week How often do you attend congregation or roman catholic services?: decline to answer Do you belong to any clubs or organized social groups?: no Panel score (0-1 are the most socially isolated patients): 0 What type of physical activity do you participate in: decline to answer Duration: decline to answer Frequency: decline to answer Bethany/Amish: Shinto Special bethany needs: No Seatbelt use: always Helmet use: No Drive intox or ride w/intox commercial collections driver: No Do you feel safe at home: Yes Do you feel safe in your relationship?: Yes Exam Narrative Exam Narrative: GEN: awake, alert, oriented 3. Pleasant, well groomed, interactive. HEAD: Normocephalic, atraumatic ENT: Mucous membranes moist, oropharynx unremarkable, External ear exam unremarkable EYES: PERRL, EOMI NECK: Full ROM, right surgical flap with healing incisions, tracheostomy with bloody mucus CHEST/RESP: Nontender, diminished bilaterally but clear to auscultation, no wheeze/rhonchi/rales CARDIOVASCULAR: RRR, no murmur, rub gibson. 2+ Rad pulse bilateral ABDOMEN: Soft, nontender, no mass. +Bowel sounds EXT: Full ROM, no edema, few areas of blanching raised erythematous wheals primarily on upper arms and axilla. Neuro: Grossly normal neurologic exam, conversant, interactive. Psych: Speech fluent, thoughts congruent, affect normal Course Vital Signs Vital signs: Vital Signs Temperature 36.9 C 11/30/19 09:39 Pulse 100 H 11/30/19 09:39 Respiratory Rate 18 11/30/19 09:39 Blood Pressure 171/63 H 11/30/19 09:39 Pulse Oximetry 90 L 11/30/19 09:39 Temperature 36.9 C 11/30/19 09:39 Temperature Source Skin 11/30/19 09:39 Pulse 100 H 11/30/19 09:39 Respiratory Rate 18 11/30/19 09:48 Respiratory Effort 11/30/19 09:48 Respiratory Depth Normal 11/30/19 09:48 Respiratory Pattern Normal 11/30/19 09:48 Blood Pressure 171/63 H 11/30/19 09:39 Blood Pressure Position Sitting 11/30/19 09:39 Pulse Oximetry 90 L 11/30/19 09:39 Oxygen Delivery Method OxyMask 11/30/19 09:39 Oxygen Flow Rate 2 11/30/19 09:39 Pain Level 0 11/30/19 09:39
[2019-11-30] MEDS: Normal Saline 1,000 ML 150 ML IV (10:15)
[2019-11-30 10:22] LABS: Abs Immature Grans 0.02 k/cumm (0.0-0.09); Absolute Basophil Count 0.03 k/cumm (0.0-0.2); Absolute Eosinophil Count 0.29 k/cumm (0.0-0.7); Absolute Lymphocyte Count 1.18 k/cumm (1.2-3.4); Absolute Neutrophil Count 8.73 k/cumm (1.2-6.7); Basophils % 0.3; Eosinophils % 2.6; HCT 32.8 % (36.0-46.0); Immature Grans % 0.2 %; Lymphocytes % 10.7; Mean Corp. HGB Concentration 30.5 g/dL (32.0-36.0); Mean Corpuscular Hemoglobin 28.6 pg (27.0-33.0); Mean Corpuscular Volume 93.7 fL (80-95); Mean Platelet Volume 9.8 fL (8.0-11.0); Monocytes % 7.2; Platelet Count 458 x1000/uL (130-400); White Blood Cell Count 11.05 k/cumm (4.4-10.8)
[2019-11-30 10:32] LABS: INR 1.1 (0.9-1.1); Prothrombin Time 11.1 sec (9.3-11.0)
[2019-11-30 10:34] LABS: ALT 28 U/L (14-59); AST 25 U/L (15-37); Albumin 2.9 g/dL (3.4-5.0); Alkaline Phosphatase 106 U/L (46-116); BUN 15 mg/dL (7-18); Bilirubin, Total 0.4 mg/dL (0.2-1.0); CREATININE 0.68 mg/dL (0.55-1.02); Chloride 102 mmol/L (98-107); Glucose 192 mg/dL (74-106); Potassium 3.7 mmol/L (3.5-5.1); Sodium 141 mmol/L (136-145)
--- NOTE | 2019-11-30 11:03 | DI.CT_ITS ---
EXAM: CT CHEST PE CTA CLINICAL HISTORY: CA, TRACH, BLOODY SECRETIONS TECHNIQUE: Post IV contrast. The exam is limited by respiratory motion. Axial CT angiography was performed with multi-slice acquisition and multi-planar and/or 3D reconstruc tions. FINDINGS: Small branch pulmonary emboli cannot be excluded. No large emboli are identified. There is no eviden ce of aortic dissection. There is no pleural or pericardial effusion. There is enlargement of the lef t atrium and left ventricle. There are mild aortic calcifications. There are no significant coronary artery calcifications visible. Lungs are not well evaluated due to respiratory motion. Emphysematous changes are again noted. There are mild dependent changes or atelectasis at the lung bases. No focal area of consolidation is seen. IMPRESSION: Limited exam due to respiratory motion. No evidence of central pulmonary emboli. Emphysematous andrew nges.
[2019-11-30] MEDS: Omnipaque 350 MG/ML 100 ML BTL IJ (11:10)
[2019-11-30] MEDS: Normal Saline Flush 10 ML SYR IVP (11:45)
--- NOTE | 2019-11-30 12:37 | DI.VRAD_ITS ---
PROCEDURE INFORMATION: Exam: CT Angiography Chest With Contrast Exam date and time: 11/30/2019 11:00 AM Age: 79 years old Clinical indication: Other: CA, bloody secretions, trach TECHNIQUE: Imaging protocol: Computed tomographic angiography of the chest with intravenous contrast. 3D rendering: MIP and/or 3D reconstructed images were created by the technologist. Contrast material: OMNI 350; Contrast volume: 78 ml; Contrast route: RAC 18 G; COMPARISON: CT CHEST FOR PE, ABD PELVIS W 01/15/2016 8:20 PM FINDINGS: Tubes, catheters and devices: Midline tracheostomy in place. Pulmonary arteries: Significantly limited evaluation due to contrast opacification of pulmonary arteries and severe respiratory motion. No large pulmonary emboli to the segmental level. Evaluation of subsegmental pulmonary arteries is nondiagnostic. Aorta: The aorta demonstrates moderate atherosclerotic calcification. Lungs: Redemonstrated extensive centrilobular upper lung emphysema. Again seen, bibasilar dependent interstitial opacities and atelectasis and/or scarring. No large confluent airspace consolidation. The airways are patent to the bronchiolar level without evident filling defect. The bronchials are difficult to evaluate due to respiratory motion. Pleural space: No pneumothorax. No pleural effusion. Heart: No cardiomegaly. No pericardial effusion. Lymph nodes: No enlarged lymph nodes. Bones/joints: Spondylosis. No acute fracture. Osteopenia. Soft tissues: Unremarkable. IMPRESSION: 1. Limited evaluation due to contrast opacification of the pulmonary arteries severe respiratory motion. 2. No large pulmonary emboli to the segmental level. 3. Extensive emphysema and interstitial changes as previously noted. Dictated and Authenticated by: Kit Sarmiento MD. Ordering:WILFRED Lawrence MD
[2019-11-30] MEDS: diphenhydrAMINE /ZINC ACET CR 30 GM TUBE TP (13:47)
== END 2019-11-30 13:55 | disposition home or self-care (01) ==
PROVIDERS: Emergency Provider Emergency Medicine; PCP Family Medicine
DX: J95.01 Hemorrhage from tracheostomy stoma (principal); Z90.02 Acquired absence of larynx; C32.0 Malignant neoplasm of glottis; Z92.3 Personal history of irradiation
CPT/HCPCS: 36415; 71275; 80053; 96360; 96361; 99285; 85025; 85610; 99284; J3490

== ENCOUNTER 2019-12-02 08:46 | Observation (INO) | payer OTHER, SELFPAY ==
[2019-12-02] VITALS (30 sets, daily range): BP systolic 119–157; BP diastolic 44–74; PULSE 86–126; RESP 16–28; TEMP 33–37; O2SAT 90–100
--- NOTE | 2019-12-02 08:44 | W.ED.GENAD ---
Discharge Plan Disposition Patient Disposition: [facility] INPATIENT Condition: Stable Discharge Details Chief Complaint: SOB Clinical Impression: Transition from home health care to hospice, Deficient knowledge of tracheostomy home care Admit Date/Time: 12/02/19 09:22 Admit Provider: Sb De Los Santos Attending Provider: Sb De Los Santos Primary Care Provider: Caridad Sánchez ED Provider: Aubree Nunez Discharge Data Discharge Date/Time-TO BE ENTERED AT DEPARTURE: 12/02/19 11:03 Medical Decision Making 79-year-old female w/ a past medical history of pulmonary embolism, squamous cell carcinoma, vocal cord carcinoma, status post radiation, who underwent laryngectomy and thyroidectomy at [facility] complicated by an abscess and fluid collection, subsequent postoperative multi lobar pneumonia and pulmonary hemorrhage that required inhaled TXA. She was discharged from [facility] 6 days ago to home. Patient was seen here 2 days ago for the same complaint and had labs and CT imaging which were unremarkable - she had been placed on humidified O2 with gentle suctioning of her tracheostomy which was cleared without any further bleeding and she was discharged home with plan for continued home health with both nursing and [employer] assistance. Vitals within normal limits on arrival. Oxygen saturation 100% on 3 L. Patient denies any symptoms at present. Case discussed with Dr. Sánchez who was planning to evaluate patient at home at 5 PM this evening for transition to palliative/hospice care. She states that she had a discussion with patient's daughters this morning informing them that patient likely does not have long to live and may be recommended to place patient on hospice and they told her they were agreeable. Discussed with patient at bedside -it appears clearly that patient's family is unable to care for her at home as this is her third time here over the last few days with 2 ambulance visits at home today. Discussed that it would be beneficial for her to stay in the hospital to have palliative care evaluate and likely plan for hospice. Patient is agreeable with this plan. Discussed with hospitalist who accepts patient for admission. Dr. Sánchez will evaluate patient here at noon today. Discussed with respiratory and patient and there is a plan to try to obtain patient supplies needed for her tracheostomy. Labs reviewed and noted a normal white blood cell count. Hemoglobin down to 8.8 from 10 two days ago. Chest x-ray notes question of mild pulmonary edema, but no acute disease. Medical Records Medical records reviewed: Yes I reviewed the patient's medical records. Imaging Data Radiologic Study: Radiologist's impression: XR CHEST 2V PA LATERAL INDICATION: shortness of breath, trach, r/o acute disease. COMPARISON: No exams were available for comparison TECHNIQUE: 2D digital imaging was performed. FINDINGS: A tracheostomy tube is now seen. The heart is mildly enlarged, unchanged. There are underlying fibrotic changes. No acute infiltrate, or effusion is seen. There is a question of mildly increased interstitial prominence which could indicate mild pulmonary edema versus differences in technique. IMPRESSION: Question of mild pulmonary edema. Tracheostomy tube. Lab Data Lab results reviewed: Yes I reviewed the patient's lab results. HPI General Mode of arrival: ambulatory. Date/Time Provider Initiated Documentation: 12/02/19 08:48. Limitations to Documentation: no limitations. Information obtained by: patient. History of Present Illness 79 year old F presents to the emergency department with the chief complaint of Bloody mucus from trach, shortness of breath, Patient started experiencing this hour(s) (At home this morning) and it has been intermittent. other things that improve symptom(s), (Attempted suctioning) Patient notes shortness of breath; denies chest pain, cough, diaphoresis, fever/chills, headaches, loss of appetite, malaise, nausea/vomiting, rash, seizure, syncope and weakness. Patient did receive the following treatments prior to arrival, none Related Data Home Medications Medication Instructions Recorded Confirmed apixaban 5 mg tablet 5 mg PO BID #60 tab 11/21/18 12/02/19 albuterol sulfate 90 mcg/actuation 2 puff IH QID PRN #8.5 gm 08/01/19 12/02/19 aerosol inhaler furosemide 80 mg tablet 80 mg PO BID #180 tab-cap 11/28/19 12/02/19 ipratropium 0.5 mg-albuterol 3 mg 3 ml IH QID PRN #180 ml 11/28/19 12/02/19 (2.5 mg base)/3 mL nebulization soln guaifenesin 100 mg/5 mL oral liquid 400 mg PO BID #1000 ml 11/29/19 12/02/19 nystatin 100,000 unit/mL oral 500,000 unit BC QID #250 ml 11/29/19 12/02/19 suspension metformin 500 mg BID 11/30/19 12/02/19 metoprolol succinate 12.5 mg PO BID 11/30/19 12/02/19 Previous Rx's Medication Instructions Recorded apixaban 5 mg tablet 5 mg PO BID #60 tab 11/21/18 albuterol sulfate 90 mcg/actuation 2 puff IH QID PRN #8.5 gm 08/01/19 aerosol inhaler furosemide 80 mg tablet 80 mg PO BID #180 tab-cap 11/28/19 ipratropium 0.5 mg-albuterol 3 mg 3 ml IH QID PRN #180 ml 11/28/19 (2.5 mg base)/3 mL nebulization soln guaifenesin 100 mg/5 mL oral liquid 400 mg PO BID #1000 ml 11/29/19 nystatin 100,000 unit/mL oral 500,000 unit BC QID #250 ml 11/29/19 suspension Allergies Allergy/AdvReac Type Severity Reaction Status Date / Time atorvastatin AdvReac Intermediate pt does Unverified 12/02/19 09:05 not think she has an allergy to this med General SUHA: 3 Review of Systems All systems reviewed & are unremarkable except as noted in HPI and below Constitutional Constitutional: Reports as per HPI, Denies chills and Denies fever(s) Eyes Eyes: Denies blurry vision ENT Ears, Nose, Mouth, and Throat: Denies dizziness, Denies sore throat and Denies throat swelling Cardiovascular Cardiovascular: Denies chest pain and Reports dyspnea Respiratory Respiratory: Denies cough, Reports dyspnea and Reports other Gastrointestinal Gastrointestinal: Denies abdominal pain, Denies diarrhea and Denies vomiting Genitourinary Genitourinary: Denies hematuria and Denies dysuria Musculoskeletal Musculoskeletal: Denies back pain and Denies numbness Integumentary/Breasts Skin/Breast: Denies lesions and Denies rash Neurologic Neurologic: Denies dizziness, Denies focal weakness and Denies numbness Allergic/Immunologic Allergic/Immunologic: Denies throat swelling [facility] Social History Smoking/Tobacco Use Status: Former Tobacco Use Quit Date: 06/05/01 Second Hand Exposure: Yes Alcohol Intake: former Drug use: Never Substance use type: does not use Caregiver/Support person: No Household members: none Housing: house Do you need help understanding health information?: Rarely Pets and animals: No Sexually active: No Current gender identity: female What is your relationship status?: How often do you talk on the phone with friends or family?: decline to answer How often do you get together with friends or relatives?: once per week How often do you attend amish or baptism services?: decline to answer Do you belong to any clubs or organized social groups?: no Panel score (0-1 are the most socially isolated patients): 0 What type of physical activity do you participate in: decline to answer Duration: decline to answer Frequency: decline to answer Bethany/Oriental Orthodox: Confucianism Special bethany needs: No Seatbelt use: always Helmet use: No Drive intox or ride w/intox class a regional truck driver: No Do you feel safe at home: Yes Do you feel safe in your relationship?: Yes Exam Const General: cooperative and no acute distress HENMT Head: normal to inspection Face and sinus: normal facial exam Eyes General: appearance normal, both eyes and all related structures Pupils: PERRL EOM: EOM intact bilaterally Neck Neck: tracheostomy present and No submandibular swelling Lymphatic: no lymphadenopathy noted Chest Chest: normal inspection of the chest and no tenderness Resp Effort & Inspection: normal respiratory effort Auscultation: clear to auscultation bilaterally Cardio Rate: regular rate Rhythm: regular rhythm GI Inspection: normal to inspection Palpation: soft, not firm, not rigid and nontender Auscultation: normal bowel sounds Neuro General: alert, awake and oriented x3 Cognition: normal cognition Speech: speech normal Motor: muscle tone normal throughout Sensory Exam: no sensory deficits noted Extrem General: full ROM, normal capillary refill, no calf tenderness bilaterally and no edema Upper/lower leg/hip images: 1. Purpleish discoloration and chronic appearing excoriation of bilateral lower extremities with skin markers present proximal legs. Skin changes appear chronic. No evidence of cellulitis Psych Appearance: grossly normal Mental Status: mental status grossly normal Speech and Movement: speech and movement normal Affect: normal affect
--- NOTE | 2019-12-02 08:59 | DI.RAD_ITS ---
EXAM: XR CHEST 2V PA LATERAL INDICATION: shortness of breath, trach, r/o acute disease. COMPARISON: No exams were available for comparison TECHNIQUE: 2D digital imaging was performed. FINDINGS: A tracheostomy tube is now seen. The heart is mildly enlarged, unchanged. There are underlying fib rotic changes. No acute infiltrate, or effusion is seen. There is a question of mildly increased in terstitial prominence which could indicate mild pulmonary edema versus differences in technique. IMPRESSION: Question of mild pulmonary edema. Tracheostomy tube.
[2019-12-02 10:06] LABS: Abs Immature Grans 0.01 k/cumm (0.0-0.09); Absolute Basophil Count 0.03 k/cumm (0.0-0.2); Absolute Eosinophil Count 0.06 k/cumm (0.0-0.7); Absolute Lymphocyte Count 0.59 k/cumm (1.2-3.4); Absolute Neutrophil Count 8.73 k/cumm (1.2-6.7); Basophils % 0.3; Eosinophils % 0.6; HCT 29.6 % (36.0-46.0); HGB 8.8 g/dL (12.0-15.5); Immature Grans % 0.1 %; Lymphocytes % 5.8; Mean Corp. HGB Concentration 29.7 g/dL (32.0-36.0); Mean Corpuscular Hemoglobin 27.9 pg (27.0-33.0); Mean Platelet Volume 9.4 fL (8.0-11.0); Monocytes % 6.9; Neutrophils % 86.3; Platelet Count 460 x1000/uL (130-400); RBC 3.15 m/cumm (4.00-5.20); RBC Distribution Width 15.7 % (11.7-14.6); White Blood Cell Count 10.12 k/cumm (4.4-10.8)
--- NOTE | 2019-12-02 10:18 | W.PM.HP.N ---
Date of service: 12/02/19 Time of Service: 10:18 Assessment and Plan Assessment and plan (1) Deficient knowledge of tracheostomy home care: Status: Acute Assessment and plan: respiratory consult and teaching re care and suctioning (2) Pulmonary embolus: Status: Chronic Assessment and plan: will continue apixaban, no bleeding noted. (3) Right vocal cord cancer: Status: Acute Assessment and plan: s/p laryngectomy and thyroidectomy, post operatively stable. continue outpatient f/u as scheduled. (4) COPD (chronic obstructive pulmonary disease): Status: Chronic Assessment and plan: stable, continue respiratory treatments and monitor (5) Discharge planning issues: Status: Acute Assessment and plan: case management following, referrals will be placed History of Present Illness History of Present Illness Chief Complaint: hemoptysis Narrative: This is a 79-year-old female w/ a past medical history of pulmonary embolism, squamous cell carcinoma, vocal cord carcinoma, status post radiation, who underwent laryngectomy and thyroidectomy at [facility] complicated by an abscess and fluid collection, subsequent postoperative multi lobar pneumonia and pulmonary hemorrhage that required inhaled TXA. She was discharged from [facility] 6 days ago to home. Since being at home patient and family having difficulty managing trach and secretions. She was seen here 2 days prior for the same complaint and had labs and CT imaging which were unremarkable - she had been placed on humidified O2 with gentle suctioning of her tracheostomy which was cleared without any further bleeding and she was discharged home with plan for continued home health with both nursing and CLINICAL SCIENTIST assistance. work up in the ED again was unremarkable. she will be referred to observation on med/surg for failure to manage trach at home. she was scheduled to see Dr Sánchez outpatient, she will see her here on med/surg. Review of Systems Constitutional Constitutional: Reports as per HPI Comments: no fevers Eyes Eyes: Denies change in vision and Denies eye discharge ENT Ears, Nose, Mouth, and Throat: Reports change in voice (laryngectomy), Denies vertigo, Denies dizziness, Denies neck pain, Denies sore throat and Denies throat swelling Cardiovascular Cardiovascular: Denies chest pain, Reports pedal edema, Reports edema and Reports dyspnea (at times) Respiratory Respiratory: Reports change in phlegm color, Reports cough, Reports hemoptysis, Reports excessive phlegm production and Reports dyspnea (at times) Gastrointestinal Gastrointestinal: Denies abdominal pain, Denies constipation and Denies diarrhea Genitourinary Genitourinary: Denies urinary frequency and Denies difficulty voiding Musculoskeletal Musculoskeletal: Denies back pain and Denies neck pain Neurologic Neurologic: Denies vertigo and Denies dizziness Allergic/Immunologic Allergic/Immunologic: Denies throat swelling [facility] Social History Smoking/Tobacco Use Status: Former Tobacco Use Quit Date: 06/05/01 Second Hand Exposure: Yes Alcohol Intake: former Drug use: Never Substance use type: does not use Caregiver/Support person: No Household members: none Housing: house Do you need help understanding health information?: Rarely Pets and animals: No Sexually active: No Current gender identity: female What is your relationship status?: How often do you talk on the phone with friends or family?: decline to answer How often do you get together with friends or relatives?: once per week How often do you attend anglican or temple services?: decline to answer Do you belong to any clubs or organized social groups?: no Panel score (0-1 are the most socially isolated patients): 0 What type of physical activity do you participate in: decline to answer Duration: decline to answer Frequency: decline to answer Bethany/Evangelical: Jehovah'S Witness Special bethany needs: No Seatbelt use: always Helmet use: No Drive intox or ride w/intox power screwdriver operator: No Do you feel safe at home: Yes Do you feel safe in your relationship?: Yes Meds Home Medications and Allergies Home Medications Medication Instructions Recorded Confirmed Type apixaban 5 mg tablet 5 mg PO BID #60 tab 11/21/18 12/02/19 Rx albuterol sulfate 90 mcg/actuation 2 puff IH QID PRN #8.5 gm 08/01/19 12/02/19 Rx aerosol inhaler furosemide 80 mg tablet 80 mg PO BID #180 tab-cap 11/28/19 12/02/19 Rx ipratropium 0.5 mg-albuterol 3 mg 3 ml IH QID PRN #180 ml 11/28/19 12/02/19 Rx (2.5 mg base)/3 mL nebulization soln guaifenesin 100 mg/5 mL oral liquid 400 mg PO BID #1000 ml 11/29/19 12/02/19 Rx nystatin 100,000 unit/mL oral 500,000 unit BC QID #250 ml 11/29/19 12/02/19 Rx suspension metformin 500 mg BID 11/30/19 12/02/19 History metoprolol succinate 12.5 mg PO BID 11/30/19 12/02/19 History Allergies Allergy/AdvReac Type Severity Reaction Status Date / Time atorvastatin AdvReac Intermediate pt does Unverified 12/02/19 09:05 not think she has an allergy to this med Exam Const General: cooperative, comfortable, no acute distress, well developed and well groomed Nutritional Appearance: average body habitus Orientation: alert, awake and oriented x3 HENMT Head: normal to inspection, normocephalic and atraumatic Face and sinus: normal facial exam Mouth: oral mucosae normal Neck Neck: tracheostomy present Resp Effort & Inspection: normal respiratory effort Auscultation: rales bilaterally in the lower lung ferreira Cardio Rate: regular rate Rhythm: regular rhythm GI Inspection: normal to inspection Palpation: soft Auscultation: normal bowel sounds Skin General skin exam: no rashes or lesions noted Neuro General: alert, awake and oriented x3 Extrem General: edema (trace) Laterality: bilateral Results Labs Result diagrams: 12/02/19 09:50 12/02/19 09:50 Labs: Laboratory Results - last 24 hr 12/02/19 09:50 WBC 10.12 RBC 3.15 L Hgb 8.8 L Hct 29.6 L MCV 94.0 MCH 27.9 MCHC 29.7 L RDW 15.7 H Plt Count 460 H MPV 9.4 Immature Gran % 0.1 Neutrophils % 86.3 Lymphocytes % 5.8 Monocytes % 6.9 Eosinophils % 0.6 Basophils % 0.3 Absolute Neutrophils 8.73 H Absolute Lymphocytes 0.59 L Absolute Monocytes 0.70 Absolute Eosinophils 0.06 Absolute Basophils 0.03 Last Vital Signs Temp 36.0 C L 12/02/19 08:47 Pulse 105 H 12/02/19 08:47 Resp 16 12/02/19 09:01 BP 157/56 H 12/02/19 08:47 Pulse Ox 100 12/02/19 08:47
[2019-12-02 10:20] LABS: Anion Gap 7.5 mmol/L (3-11); BUN 20 mg/dL (7-18); CO2 32.5 mmol/L (21.0-32.0); CREATININE 0.82 mg/dL (0.55-1.02); Calcium 8.9 mg/dL (8.5-10.1); Chloride 103 mmol/L (98-107); Glucose 188 mg/dL (74-106); Potassium 3.6 mmol/L (3.5-5.1); Sodium 143 mmol/L (136-145)
--- NOTE | 2019-12-02 14:14 | W.PALLCONSUL ---
Date of service: 12/02/19 Time of Service: 14:14 History of Present Illness Narrative: Lisa is an 79-year-old woman who has spent about 10 weeks at [facility] due to piriformis sinus tumor. She has ended up with a trach and feeding tube. She has had multiple multiple complications. She did go to [facility] for a few days but ended up back at [facility]. She was recently discharged to home with home health. Unfortunately many of the necessities of her care were not in place at the time of discharge. It took several days to get all of her meds lined up. She still has not gotten the trach tube delivered. Presently the family is taking care of her. They are not medical people and are very concerned and scared when she has any type of blood while suctioning. They do note that there is some blood mixed with some phlegm and deep suctioning and occasional clot. They have brought her to the emergency room twice she also has had the ambulance called but has refused to go on different occasions. There is a lot of discourse between family members. Some are telling me hospice, others are telling me that she can get better etc. My plan was to do a home visit on Sunday to talk with Lisa to figure out what she wanted. This was moved up to 5:00 today. I am seeing her now at noon because between the time that we had decided that I would come at 5:00 and approximately 8:30 in the morning she again called 911. She was brought to the emergency room. I spoke with Dr. Greco who states that her oxygenation was excellent. There was a little bit of blood in the tube but not much, pretty much what was expected. Due to the family's distress and not having the necessary trach supplies etc. she was admitted for further care I am meeting with her at noon with her son Sb and Gisell, Hospitalist. Sb states he does not like seeing his mom struggle in any way and he cannot just sit there while she does self. Lisa can only communicate by writing. She states that her children cannot care for her and that she needs to go to a facility. Unfortunately she already knows that there are not a lot of facilities that accept trach patients. We did speak about radiation. She was refusing to go to radiation. She thinks it is too much of a burden on her children. She is willing to consider chemotherapy. Although I have read her notes from [facility] I did not remember the particulars regarding her chemotherapy. I have seen multiple appointments for her radiation. We did discuss CODE STATUS. A year ago prior to all of the cancer diagnosis and treatment she had told me that she wanted to be DNR. This was changed prior to her admission to [facility]. Today she said she probably wants to be coded. When I explained to her that probably means yes and that she would be a full code she shook her head and agreed to this. I did ask her 2 times to be certain that she was clear on what I was asking and what she wanted. She is not interested in hospice at this time she still would like to pursue active treatment. She just does not want to be a burden on her family. Consults Consult date: 12/02/19 Requesting physician: Aubree Nunez Assessment and Plan Assessment and plan (1) COPD (chronic obstructive pulmonary disease): Status: Chronic (2) Pyriform sinus mass: Status: Acute (3) Pharyngoesophageal dysphagia: Status: Acute (4) Deficient knowledge of tracheostomy home care: Status: Acute Assessment and plan: Unfortunately it is very clear that the family cannot handle her care. They are not comfortable with normal streaks of blood in her suctioning tube. She herself states that they cannot care from her and that it is too much of a burden. Will ask care management to look for facilities that do accept trach patients. Unfortunately these will not be close to home. Plan Gisell, hospitalist, has been getting necessary trach tubes etc. in place. Respiratory is helping with this. She is not in any danger at this time. Her O2 sats have been 100%. CODE STATUS is full She is not interested in hospice at this time and wants to pursue chemotherapy if possible. this will have to be looked into to determine whether or not her oncologist would consider chemotherapy in light of the fact that she will not do radiation therapy All of this is up in the air considering we do not know where she is going to be living in where the institution that accepts her will be I will continue to follow Lisa. I have spent more than 50% of time in counseling with this patient. This document was created by [employer] and may contain grammatical and translation errors. Review of Systems Narrative: She said her main problem is her breathing. At times she gets quite upset when she feels that her tube is clogged. She does get tired quite a bit she did not mention any musculoskeletal complaints. [facility] Social History Smoking/Tobacco Use Status: Former Tobacco Use Quit Date: 06/05/01 Second Hand Exposure: Yes Alcohol Intake: former Drug use: Never Substance use type: does not use Caregiver/Support person: No Household members: none Housing: house Do you need help understanding health information?: Rarely Pets and animals: No Sexually active: No Current gender identity: female What is your relationship status?: How often do you talk on the phone with friends or family?: decline to answer How often do you get together with friends or relatives?: once per week How often do you attend samaritan or taoist services?: decline to answer Do you belong to any clubs or organized social groups?: no Panel score (0-1 are the most socially isolated patients): 0 What type of physical activity do you participate in: decline to answer Duration: decline to answer Frequency: decline to answer Bethany/Orthodox: Orthodox Special bethany needs: No Seatbelt use: always Helmet use: No Drive intox or ride w/intox goat driver: No Do you feel safe at home: Yes Do you feel safe in your relationship?: Yes Exam Narrative Exam Narrative: She is sitting up in bed. The trach is in place. She is able to write with beautiful penmanship her questions and answers on a piece of paper. She does understand and comprehend all of what we are saying. She responds appropriately. Her lungs have adequate aeration. Her heart is slightly irregular but rate controlled. Her abdomen is nontender. Results Last Vital Signs Temp 98.6 F 12/02/19 11:44 Pulse 91 H 12/02/19 11:44 Resp 24 12/02/19 11:44 BP 119/69 12/02/19 11:44 Pulse Ox 90 L 12/02/19 11:44 Labs Result diagrams: 12/02/19 09:50 12/02/19 09:50 Labs: Laboratory Results - last 24 hr 12/02/19 12/02/19 09:50 09:50 WBC 10.12 RBC 3.15 L Hgb 8.8 L Hct 29.6 L MCV 94.0 MCH 27.9 MCHC 29.7 L RDW 15.7 H Plt Count 460 H MPV 9.4 Immature Gran % 0.1 Neutrophils % 86.3 Lymphocytes % 5.8 Monocytes % 6.9 Eosinophils % 0.6 Basophils % 0.3 Absolute Neutrophils 8.73 H Absolute Lymphocytes 0.59 L Absolute Monocytes 0.70 Absolute Eosinophils 0.06 Absolute Basophils 0.03 Sodium 143 Potassium 3.6 Chloride 103 Carbon Dioxide 32.5 H Anion Gap 7.5 BUN 20 H Creatinine 0.82 Estimated GFR/1.73 m2 >= 60.00 Glucose 188 H Calcium 8.9
--- NOTE | 2019-12-02 17:20 | INITIAL_ITS ---
- If Service Date Differs Date of service: 12/02/19 Time of Service: 17:20 Care Management Initial Assess REASON FOR HOSPITALIZATION:: Tracheostomy care and failure to thrive at home PAST MEDICAL HISTORY/PAST SURGICAL HISTORY:: COPD, right vocal cord cancer, pulmonary emboli, stenosis of carotid artery, peripheal venous insufficiency, peripheal edema, hyperlipidemia, htn, depressive disorder, CVA, cerebral arteriovenous malformation. Surgical: Status post laringectomy, thyroidectomy, r/t primary neoplasm of larynx. PREVIOUS FUNCTIONAL STATUS/SOCIAL/FAMILY SUPPORTS:: Lisa lives in her own home and her family provides supportive care. She has three children Jasmin, Trini and Abdulaziz who all provide support at home. Lisa was recently discharged from [facility] on 11/27/2019 status post trach after surgical removal of her thyroid and Larnx. CURRENT FUNCTIONAL STATUS:: Lisa is alert she is oriented and able to make her own decisions. CM met with Lisa at length she does not want to be a burden on her family. Lisa has not had what she needs since the last discharge from [facility] on 11/27/2019. [employer] was the DME company for tube feedings, trach supplies and oxygen. Lisa has not received any of her supplies to date other then suction, oxygen and humidification. She is still awaiting the trach supplies including the cannula inner trach. [employer] did not have the appropiate orders at time of Lsia's discharge and the DME supplies were not ordered until clarification. Abdulaziz her son has been carring for the trach at home, however due to increased mucous plugging and pink tinged sputum he feels he can not manage it and that she needs to be in the hospital. Lisa is considering care home to take the burden off her family. Lisa has made it clear she is not ready for hospice care however she acknowledges she needs more support and coordination of community services including home health support, private caregivers and assistance with completion in care home medicaid application for continuous churn buttermaker payer source. ADVANCE DIRECTIVES:: Multiple advance and COLST on file Has patient been provided with information about the portal?: Yes Did the patient sign up for the portal?: No CODE STATUS:: Full Code INSURANCE COVERAGE / FINANCIAL ISSUES:: [facility] CURRENT HOME/COMMUNITY SERVICES/EQUIPMENT:: DME [employer], Oxygen, humidification, suction, feeding tube, oncology supports through [facility] PRIMARY CARE PHYSICIAN:: POTENTIAL DISCHARGE NEEDS:: Coordiantion of home health services including DME, and care home care supports, continues palliative care supports. PATIENT/FAMILY EDUCATION NEEDS:: Discharge education, limitations follow up plan of care, benefits and community resources and referrals including benefits. ANTICIPATED BARRIERS TO DISCHARGE:: Disposition and accepting facility TRANSPORTATION:: Pending disposition PLAN:: CM met with Lisa and her family at length disposition to be determined. CM to assist in coordination of services including referrals to SNF of choice.
[2019-12-02] MEDS: Metoprolol CR 25 MG TABCR 12.5 MG PO (20:18)
[2019-12-02] MEDS: Apixaban 5 MG TAB PO (20:18)
[2019-12-02] MEDS: Nystatin 500000 UNITS/5 ML SUSP 5ML CUP PO (20:18)
[2019-12-02] MEDS: guaiFENesin 200 MG/10 ML CUP 400 MG PO (20:18)
--- NOTE | 2019-12-02 20:36 | NUR.NOTE ---
Nursing Note: 20.00: Pt transfered to ICU due to the need of frequent tracheotomy care. Before transfer this Nurse changed the inner canula of trach tube and replaced it with new one. slimy blood stained mucous noted in the removed tube and cleansed with NS.
[2019-12-03] VITALS (8 sets, daily range): BP systolic 127–129; BP diastolic 51; PULSE 88–90; RESP 4–25; TEMP 34–36.6; O2SAT 93–95
[2019-12-03] MEDS: Albuterol/Ipratropium 3 ML UPD VIAL IH (03:48)
[2019-12-03] MEDS: Metoprolol CR 25 MG TABCR 12.5 MG PO (09:42)
[2019-12-03] MEDS: Furosemide 80 MG TAB PO (09:42)
[2019-12-03] MEDS: Apixaban 5 MG TAB PO (09:42)
[2019-12-03] MEDS: guaiFENesin 200 MG/10 ML CUP 400 MG PO (09:43)
[2019-12-03] MEDS: Nystatin 500000 UNITS/5 ML SUSP 5ML CUP PO ×2 (09:43→13:05)
--- NOTE | 2019-12-03 11:38 | PHARADMIT ---
Admission Pharmacy Clinical Review Code Status Full Code Current Weight 88.6 kg Renally Cleared and Narrow Therapeutic Index Meds CrCl ~58ml/min based on adjusted body weight QTc Value / Action Taken n/a BP Control, Fever BP 127/56, afebrile Electrolytes reviewed all wnl DVT Prophylaxis Eliquis Opiate Usage / Scheduled Bowel Regimen Ordered none Plt/SCr for Heparin / Enoxaparin Plt 460, Scr 0.82 INR for Warfarin H/H stable, WBC/Bands H/H 8.8/29.6, WBC 10.12 Antibiotic appropriateness n/a Cultures and Sensitivities Surgical ABX d/c within 24 hr DM control / Insulin Dosing Aspart per SS Heart Failure (Check EF%) (JOSHUA's, B-Block, Diuretics) metoprolol, furosemide IV to PO Switch Home Meds Reviewed Yes, all ok Home Meds Not Ordered Metformin Comments Admitted as family is unable to meet needs for tracheostomy care
[2019-12-03] MEDS: Insulin Aspart 300 UNITS/3 ML PEN SC (12:58)
--- NOTE | 2019-12-03 13:05 | W.NUTCONSULT ---
Date of service: 12/03/19 Time of Service: 13:06 Nutritional Consult ASSESSMENT: 79 year old female s/p recent laryngectomy and thyroidectomy for right vocal cord cancer now with tracheostomy and peg tube feeding secondary to pharyngoesohageal dyphagia and complications s/p recent surgery. Admitted with SOB and lack of trach care in home environoment. Chemotherapy/radiation pending. BMI indicates obese weight but typical for her. Also allowed pureed foods with thin liquids. Met with Lisa and nursing today. She reports tolerating glucerna 1.2 without issue. Home tube feeding was Nutrin 1.5 750 ml daily (3 boluses daily), with 100 ml flushes pre/post bolus with 3 scoops beneprotein providing a total of 1125 kcal, 132 g protein, 70 g protein, 45 g fat and 1200 ml free fluid. Benepro has been ordered and will be in house by 12/04/19. Recommend continue with Glucerna 1.2 250 ml bolus TID with flushes of 100 ml pre/post bolus with 3 scoops beneprotein providing total of 950 kcal, 85 g carbs, 53 g protein, 35 g fat and 1200 ml free water. Estimated needs is 0514-0262 kcal, 60-70 g protein (based on ABW), 2400 ml fluid. Current tube feeding and pureed diet/thin liquids meeting 100% of nutrient and fluid needs. Recommend [employer] INDUSTRIAL DEVELOPMENT CONSULTANT evaluation as Lisa reports she would like to eat food that is not pureed, is willing to eat pudding, applesauce and broths, juices. DM consult received and pending. Labs indicate elevated blood sugars, expect will normalize on current tube feeding with additional protein intake. NUTRITIONAL DIAGNOSIS: dysphagia INTERVENTION: peg feeding, pureed diet MONITORING AND EVALUATION: tolerance to tube feeding, po intake, weight Time Spent in Nutritional Counseling and Treatment: 30 min spent face to face
--- NOTE | 2019-12-03 13:34 | DSE_ITS ---
Date of service: 12/03/19 Time of Service: 13:34 DS: Diagnosis Discharge Diagnosis (1) COPD (chronic obstructive pulmonary disease): Status: Chronic (2) Pyriform sinus mass: Status: Acute (3) Pharyngoesophageal dysphagia: Status: Acute (4) Deficient knowledge of tracheostomy home care: Status: Acute Discharge Plan Disposition Patient Disposition: [facility] B[facility] 1 Condition: Stable Discharge Details Chief Complaint: SOB Clinical Impression: Transition from home health care to hospice, Deficient knowledge of tracheostomy home care Reason For Visit: TRANS TO HOSPICE CARE,NEED FOR TRACHEOSTOMY CARE Admit Date/Time: 12/02/19 09:22 Admit Provider: Sb De Los Santos Attending Provider: Sb De Los Santos Primary Care Provider: Caridad Sánchez ED Provider: Aubree Nunez Hospital Course Hospital Course: This is a 79-year-old female w/ a past medical history of pulmonary embolism, squamous cell carcinoma, vocal cord carcinoma, status post radiation, who underwent laryngectomy and thyroidectomy at [facility] complicated by an abscess and fluid collection, subsequent postoperative multi lobar pneumonia and pulmonary hemorrhage that required inhaled TXA. She was discharged from [facility] 6 days ago to home. Since being at home patient and family having difficulty managing trach and secretions. She was seen here 2 days prior for the same complaint and had labs and CT imaging which were unremarkable - she had been placed on humidified O2 with gentle suctioning of her tracheostomy which was cleared without any further bleeding and she was discharged home with plan for continued home health with both nursing and PARTS PROCESSOR assistance. work up in the ED again was unremarkable. she will be referred to observation on med/surg for failure to manage trach at home. she received her palliative care consult and will be followed by Dr Caridad Sánchez. She wishes to stay a full code and return to home. medically she has been stable. Her tube feeding as arrived at home and will be initiated here. She requires frequent nursing assessment and trach care especially regarding suctioning and clearing secretions which does cause her anxiety and stress to care givers. it is believed that they perform frequent aggressive suctioning, this in addition to no humidification of oxygen for days at home has caused some irritation leading to some pink tinged sputum. she has had no overt bleeding. She did vomit once today but denied abdominal pain or ongoing nausea. case management has been following closely to assist with durable medical equipment which they are lacking at home. medically she is stable but still requiring frequent nursing assessments and teaching so will be discharged to [facility] level care with anticipation of discharge to home with home health services. Home Meds and New Rx's Prescriptions: Continued albuterol sulfate 90 mcg/actuation HFA aerosol inhaler 2 puff IH QID PRN (Reason: shortness of breath or wheezing) Qty: 8.5 RF: 0 Eliquis 5 mg tablet 5 mg PO BID Qty: 60 RF: 12 furosemide 80 mg tablet 80 mg PO BID Qty: 180 RF: 4 ipratropium-albuterol 0.5 mg-3 mg(2.5 mg base)/3 mL solution for nebulization 3 ml IH QID PRN (Reason: wheezing. J44.9) Qty: 180 RF: 8 nystatin 100,000 unit/mL suspension 500,000 unit BC QID Qty: 250 RF: 0 guaifenesin [Tussin Mucus-Chest Congestion] 100 mg/5 mL liquid 400 mg PO BID Qty: 1000 RF: 0 metoprolol succinate 25 mg Tablet Extended Release 24 Hr 12.5 mg PO BID RF: 0 metformin 500 mg/5 mL Solution 500 mg BID RF: 0 Discharge Instructions Instructions: Tracheostomy Care (DC) Activity:: Activity as Tolerated Equipment/Supplies:: No Equipment Needed Diet:: Carb Counting DS: Summary Status at Discharge Functional status at discharge: independent ambulation Overall status at discharge: patient is progressing back to baseline Mental Status: mental status grossly normal Speech and Movement: mute Mood: congruent mood Affect: normal affect Exam Const General: cooperative, healthy appearing, comfortable and no acute distress Nutritional Appearance: average body habitus Orientation: alert, awake and oriented x3 HENMT Head: normal to inspection, normocephalic and atraumatic Mouth: oral mucosae normal Neck Neck: tracheostomy present Resp Effort & Inspection: normal respiratory effort Cardio Rate: regular rate Rhythm: regular rhythm GI Inspection: normal to inspection Palpation: soft and nontender Auscultation: normal bowel sounds Skin General skin exam: no rashes or lesions noted Neuro General: alert, awake and oriented x3 Extrem General: normal to inspection, full ROM and no pedal edema Psych Mental Status: mental status grossly normal Speech and Movement: mute Mood: congruent mood Affect: normal affect DS: Data Vitals/I&O Vitals and I&O: Vital Signs Temperature 36.6 C 12/03/19 09:15 Temperature Source Temporal Artery Scan 12/03/19 00:05 Pulse 88 12/03/19 09:15 Pulse Rhythm Regular 12/03/19 10:30 Pulse 90 12/02/19 10:40 Respiratory Rate 25 H 12/03/19 00:05 Respiratory Effort 12/03/19 10:30 Respiratory Depth Shallow 12/03/19 10:30 Respiratory Pattern Normal 12/03/19 10:30 Blood Pressure 127/51 L 12/03/19 09:15 Blood Pressure Mean 72 12/02/19 22:38 Blood Pressure Position Sitting 12/02/19 08:47 Pulse Oximetry 95 12/03/19 10:06 Oxygen Delivery Method Hi Flow System 12/03/19 10:06 Oxygen Flow Rate 30 12/03/19 10:06 Fraction of Inspired Oxygen (FIO2) 25 12/03/19 10:06 Pain Level 0 12/03/19 09:15 Comment 12/03/19 00:05 Intake & Output 12/02/19 12/03/19 12/03/19 23:59 11:59 23:59 Intake Total 480 / 480 75 / 475 400 / 475 Balance 480 / 480 75 / 475 400 / 475 Weight 88.6 kg Intake: Oral 480 / 480 75 / 475 400 / 475 Other: Urine Color Yellow Urine Odor None None Comment incontinent moderate amount of urine in brief. Pt was incontinent; moderate amount of urine found in brief. Stool Occult Blood Negative Stool Size Small Small Stool Characteristics Soft Soft Formed Brown Voiding Methods Diaper Incontinent [facility] Social History Smoking/Tobacco Use Status: Former Tobacco Use Quit Date: 06/05/01 Second Hand Exposure: Yes Alcohol Intake: former Drug use: Never Substance use type: does not use Caregiver/Support person: No Household members: none Housing: house Do you need help understanding health information?: Rarely Pets and animals: No Sexually active: No Current gender identity: female What is your relationship status?: How often do you talk on the phone with friends or family?: decline to answer How often do you get together with friends or relatives?: once per week How often do you attend rastafari or anabaptist services?: decline to answer Do you belong to any clubs or organized social groups?: no Panel score (0-1 are the most socially isolated patients): 0 What type of physical activity do you participate in: decline to answer Duration: decline to answer Frequency: decline to answer Bethany/Sabianist: Evangelical Special bethany needs: No Seatbelt use: always Helmet use: No Drive intox or ride w/intox coal tram driver: No Do you feel safe at home: Yes Do you feel safe in your relationship?: Yes
--- NOTE | 2019-12-03 13:34 | W.PALPGNOTE ---
Date of service: 12/03/19 Time of Service: 10:35 Assessment and Plan Assessment and plan (1) Pyriform sinus mass: Status: Acute (2) Deficient knowledge of tracheostomy home care: Status: Acute Assessment and plan: Regarding tube feedings?nursing will start with very very low amounts. It is like she is starting from 0. If she has more than 100 cc residual they are going to hold off on the tube feedings. Hanna is working with family regarding trach care. Also she is teaching Lisa. Getting all of the needed materials for Lisa's care is in the works. Regarding radiation we did discuss this from the notes that I read radiation was more of a precaution in case all of the cancer was not gotten. At this point Lisa does not want radiation. It is uncertain whether or not this will affect her lifespan. I am not available through Sunday but will be available on Sunday. Per Gisell she most likely will not be discharged until next week. This document was created by [employer] recognition and may contain grammatical and translation errors. I have spent more than 50% of time in counseling with this patient. Subjective Subjective Interval history since last seen: Lisa is now in ICU. Because of her trach and all of the care that she required although she is still a MedSurg overflow she is now in the ICU. I was also told by staff that she required a lot of attention for help with different procedures etc. I was seeing Lisa at the same time Gisell ENROLLMENT SPECIALIST was. Lisa had just vomited. She had about 100 cc residual. Tube feedings had not yet started. Lisa states that she does not feel bad she just vomited. Hanna is working with Lisa and her family to help with suctioning so that they can learn proper technique. Nursing, case management, and respiratory are all working to get the proper materials that Lisa will need to go home and be safe. Lisa wants to go home but she needs help. She understands that she may need to pay for this help. Exam Narrative Exam Narrative: Lisa is sitting in the chair. She appears more awake and alert than she did yesterday. She states she has no belly pain. Her heart is irregular. Lungs some scattered rales. Abdomen was soft. She does have her trach in place. Objective Objective Clinical Data: Vital Signs Temperature 97.9 F 12/03/19 09:15 Temperature Source Temporal Artery Scan 12/03/19 00:05 Pulse 88 12/03/19 09:15 Pulse Rhythm Regular 12/03/19 10:30 Pulse 90 12/02/19 10:40 Respiratory Rate 25 H 12/03/19 00:05 Respiratory Effort 12/03/19 10:30 Respiratory Depth Shallow 12/03/19 10:30 Respiratory Pattern Normal 12/03/19 10:30 Blood Pressure 127/51 L 12/03/19 09:15 Blood Pressure Mean 72 12/02/19 22:38 Blood Pressure Position Sitting 12/02/19 08:47 Pulse Oximetry 95 12/03/19 10:06 Oxygen Delivery Method Hi Flow System 12/03/19 10:06 Oxygen Flow Rate 30 12/03/19 10:06 Fraction of Inspired Oxygen (FIO2) 25 12/03/19 10:06 Pain Level 0 12/03/19 09:15 Comment 12/03/19 00:05 Intake & Output 12/02/19 12/03/19 12/03/19 23:59 11:59 23:59 Intake Total 480 / 480 75 / 475 400 / 475 Balance 480 / 480 75 / 475 400 / 475 Weight 195 lb 5.273 oz Intake: Oral 480 / 480 75 / 475 400 / 475 Other: Urine Color Yellow Urine Odor None None Comment incontinent moderate amount of urine in brief. Pt was incontinent; moderate amount of urine found in brief. Stool Occult Blood Negative Stool Size Small Small Stool Characteristics Soft Soft Formed Brown Voiding Methods Diaper Incontinent Laboratory Results WBC 10.12 k/cumm (4.4-10.8) 12/02/19 09:50 RBC 3.15 m/cumm (4.00-5.20) L 12/02/19 09:50 Hgb 8.8 g/dL (12.0-15.5) L 12/02/19 09:50 Hct 29.6 % (36.0-46.0) L 12/02/19 09:50 MCV 94.0 fL (80-95) 12/02/19 09:50 MCH 27.9 pg (27.0-33.0) 12/02/19 09:50 MCHC 29.7 g/dL (32.0-36.0) L 12/02/19 09:50 RDW 15.7 % (11.7-14.6) H 12/02/19 09:50 Plt Count 460 x1000/uL (130-400) H 12/02/19 09:50 MPV 9.4 fL (8.0-11.0) 12/02/19 09:50 Immature Gran % 0.1 % 12/02/19 09:50 Neutrophils % 86.3 12/02/19 09:50 Lymphocytes % 5.8 12/02/19 09:50 Monocytes % 6.9 12/02/19 09:50 Eosinophils % 0.6 12/02/19 09:50 Basophils % 0.3 12/02/19 09:50 Absolute Neutrophils 8.73 k/cumm (1.2-6.7) H 12/02/19 09:50 Absolute Lymphocytes 0.59 k/cumm (1.2-3.4) L 12/02/19 09:50 Absolute Monocytes 0.70 k/cumm (0.11-0.7) 12/02/19 09:50 Absolute Eosinophils 0.06 k/cumm (0.0-0.7) 12/02/19 09:50 Absolute Basophils 0.03 k/cumm (0.0-0.2) 12/02/19 09:50 Sodium 143 mmol/L (136-145) 12/02/19 09:50 Potassium 3.6 mmol/L (3.5-5.1) 12/02/19 09:50 Chloride 103 mmol/L (98-107) 12/02/19 09:50 Carbon Dioxide 32.5 mmol/L (21.0-32.0) H 12/02/19 09:50 Anion Gap 7.5 mmol/L (3-11) 12/02/19 09:50 BUN 20 mg/dL (7-18) H 12/02/19 09:50 Creatinine 0.82 mg/dL (0.55-1.02) 12/02/19 09:50 Estimated GFR/1.73 m2 >= 60.00 (mL/min/1.73m2) 12/02/19 09:50 Glucose 188 mg/dL (74-106) H 12/02/19 09:50 Calcium 8.9 mg/dL (8.5-10.1) 12/02/19 09:50
== END 2019-12-03 14:12 | disposition swing bed (61) ==
LOC: ER 10:35 → MS 11:11 → ICU 20:02
PROVIDERS: Admitting Provider Family Medicine; Emergency Provider Physician Assistant; PCP Family Medicine; Visit Provider Family Medicine
DX: Z43.0 Encounter for attention to tracheostomy (principal); R13.14 Dysphagia, pharyngoesophageal phase; J44.9 Chronic obstructive pulmonary disease, unspecified; Z51.5 Encounter for palliative care; Z87.891 Personal history of nicotine dependence; Z86.711 Personal history of pulmonary embolism; Z79.01 Long term (current) use of anticoagulants
CPT/HCPCS: 36415; 80048; 99217; 99220; 99233; 99254; 99284; 99315; 71046; 85025; 99222; 99285; G0378; J3490; J7620

== ENCOUNTER 2019-12-03 14:47 | Inpatient (IN) | payer OTHER, SELFPAY ==
--- NOTE | 2019-12-03 14:42 | W.PM.HP.N ---
Date of service: 12/03/19 Time of Service: 14:42 Assessment and Plan Assessment and plan (1) Deficient knowledge of tracheostomy home care: Status: Acute Assessment and plan: continue respiratory support and education. (2) Pharyngoesophageal dysphagia: Status: Acute Assessment and plan: can have pureed diet which she is tolerating. scheduled bolus tube feedings per [facility] recommendations: Nutren 1.5 bolud of 250 ml (1 carton) 3 times daily with beneprotein scoop x 3 daily free water bolus of 100 ml pre and post bolus feeds (3) Pulmonary embolus: Status: Chronic Assessment and plan: is anticoagulated on eliquis with no evidence of bleeding. will follow H&H. (4) Pyriform sinus mass: Status: Acute Assessment and plan: followed by [facility] oncology and is s/p laryngectomy and thyroidectomy. will follow up outpatient as directed. was considering precautionary radiation and will discuss with outpatient team to make final decision. she is leaning towards not receiving it. palliative care is following. (5) Essential hypertension: Status: Chronic Assessment and plan: blood pressures are controlled, continue to follow, continue home medications and adjust as needed. (6) Discharge planning issues: Status: Acute Assessment and plan: case management following, anticipate discharge to home with services once she is safe and can manage trach and secretions History of Present Illness History of Present Illness Chief Complaint: hemoptysis, shortness of breath Narrative: This is a 79-year-old female w/ a past medical history of pulmonary embolism, squamous cell carcinoma, vocal cord carcinoma, status post radiation, who underwent laryngectomy and thyroidectomy at [facility] complicated by an abscess and fluid collection, subsequent postoperative multi lobar pneumonia and pulmonary hemorrhage that required inhaled TXA. She was discharged from [facility] 6 days ago to home. Since being at home patient and family having difficulty managing trach and secretions. She was seen here 2 days prior for the same complaint and had labs and CT imaging which were unremarkable - she had been placed on humidified O2 with gentle suctioning of her tracheostomy which was cleared without any further bleeding and she was discharged home with plan for continued home health with both nursing and APPLIED RESEARCH DIRECTOR assistance. work up in the ED again was unremarkable. she will be referred to observation on med/surg for failure to manage trach at home. she received her palliative care consult and will be followed by Dr Caridad Sánchez. She wishes to stay a full code and return to home. medically she has been stable. Her tube feeding as arrived at home and will be initiated here. She requires frequent nursing assessment and trach care especially regarding suctioning and clearing secretions which does cause her anxiety and stress to care givers. it is believed that they perform frequent aggressive suctioning, this in addition to no humidification of oxygen for days at home has caused some irritation leading to some pink tinged sputum. she has had no overt bleeding. She did vomit once today but denied abdominal pain or ongoing nausea. case management has been following closely to assist with durable medical equipment which they are lacking at home. medically she is stable but still requiring frequent nursing assessments and teaching [facility] with anticipation of discharge to home with home health services. Review of Systems Constitutional Constitutional: Reports as per HPI and Reports poor appetite Eyes Eyes: Denies change in vision ENT Ears, Nose, Mouth, and Throat: Denies vertigo Comments: tolerating pureed foods and thin liquids Cardiovascular Cardiovascular: Denies chest pain, Denies diaphoresis, Denies syncope and Denies dyspnea Respiratory Respiratory: Reports change in phlegm color, Reports cough, Reports excessive phlegm production and Denies dyspnea Gastrointestinal Gastrointestinal: Denies constipation, Denies diarrhea, Denies nausea and Reports vomiting (one episode) Genitourinary Genitourinary: Denies urinary frequency Musculoskeletal Musculoskeletal: Denies joint swelling and Denies muscle weakness Integumentary/Breasts Skin/Breast: Denies lesions Neurologic Neurologic: Reports abnormal speech (s/p laryngectomy), Denies vertigo and Denies syncope Hematologic/Lymphatic Hematologic/Lymphatic: Reports easy bleeding [facility] Social History Smoking/Tobacco Use Status: Former Tobacco Use Quit Date: 06/05/01 Second Hand Exposure: Yes Alcohol Intake: former Drug use: Never Substance use type: does not use Caregiver/Support person: No Household members: none Housing: house Do you need help understanding health information?: Rarely Pets and animals: No Sexually active: No Current gender identity: female What is your relationship status?: How often do you talk on the phone with friends or family?: decline to answer How often do you get together with friends or relatives?: once per week How often do you attend yazidi or jehovah's witness services?: decline to answer Do you belong to any clubs or organized social groups?: no Panel score (0-1 are the most socially isolated patients): 0 What type of physical activity do you participate in: decline to answer Duration: decline to answer Frequency: decline to answer Bethany/Cheondoism: Yazdanism Special bethany needs: No Seatbelt use: always Helmet use: No Drive intox or ride w/intox cdl company flatbed driver: No Do you feel safe at home: Yes Do you feel safe in your relationship?: Yes Meds Home Medications and Allergies Home Medications Medication Instructions Recorded Confirmed Type apixaban 5 mg tablet 5 mg PO BID #60 tab 11/21/18 12/02/19 Rx albuterol sulfate 90 mcg/actuation 2 puff IH QID PRN #8.5 gm 08/01/19 12/02/19 Rx aerosol inhaler furosemide 80 mg tablet 80 mg PO BID #180 tab-cap 11/28/19 12/02/19 Rx ipratropium 0.5 mg-albuterol 3 mg 3 ml IH QID PRN #180 ml 11/28/19 12/02/19 Rx (2.5 mg base)/3 mL nebulization soln guaifenesin 100 mg/5 mL oral liquid 400 mg PO BID #1000 ml 11/29/19 12/02/19 Rx nystatin 100,000 unit/mL oral 500,000 unit BC QID #250 ml 11/29/19 12/02/19 Rx suspension metformin 500 mg BID 11/30/19 12/02/19 History metoprolol succinate 12.5 mg PO BID 11/30/19 12/02/19 History Allergies Allergy/AdvReac Type Severity Reaction Status Date / Time atorvastatin AdvReac Intermediate pt does Unverified 12/02/19 09:05 not think she has an allergy to this med Exam Const General: cooperative, healthy appearing, comfortable, no acute distress and well groomed Nutritional Appearance: average body habitus Orientation: alert, awake and oriented x3 HENMT Head: normal to inspection, normocephalic and atraumatic Mouth: oral mucosae normal Neck Neck: tracheostomy present Resp Effort & Inspection: normal respiratory effort, cough and no respiratory distress Cardio Rate: regular rate Rhythm: regular rhythm GI Inspection: normal to inspection Palpation: soft and nontender Auscultation: normal bowel sounds Skin General skin exam: no rashes or lesions noted Neuro General: alert, awake and oriented x3 Extrem General: normal to inspection, full ROM and edema (trace) Laterality: bilateral
--- NOTE | 2019-12-03 16:09 | CMSA_ITS ---
- If Service Date Differs Date of service: 12/03/19 Time of Service: 16:09 SB Psychosocial/Act.Assessment - Hospital Admission Admission Date: 12/02/19 Admission From:: Home with Home Health Diagnosis:: Complications related to trach care and failure to thrive at home - Swing Bed Admission Swing Bed Admit Date:: 12/03/19 Swing Bed Level of Care: Level 1/SNF - Social Supports PREVIOUS FUNCTIONAL STATUS/SOCIAL/FAMILY SUPPORTS:: Lisa lives in her own home and her family provides supportive care. She has three children Jasmin, Trini and Abdulaziz who all provide support at home. Lisa was recently discharged from [facility] on 11/27/2019 status post trach after surgical removal of her thyroid and Larnx. - Prior to Admission Living Arrangements/Environment Prior to Admission:: Lisa lives at home with support from her family she has two daughters and a son that provide care. She also has home health services and palliative care. She has a new trach and and requires a large amount of care from family. Lisa was not able to obtain supplies to care for her trach or nutrition when she was discharged from [facility]. - Education Highest Grade Completed:: 12 - Work History Employment Status:: Retired - : No - Pentecostal Active Anglican Member:: No - Advance Directives for Healthcare Advance Directives for Healthcare: Advance Directives Advance Directive Agent: Maggie Castellanos - Community Community Supports/Involvement: Home health, nursing, PT, OT, INDUSTRIAL STAFF NURSE, rn long term care Medicaid pending awaiting clinical eval. - Interests Hobbies:: Bingo, enjoys scratch tickets and visiting with family - Present Functional Status Physical Abilities:: weakness r/t prolonged hospitalization Communication:: Lisa is awaiting for a Electrolarnyx to arrive she needs to have paper pen and call becerra within reach at all times. Behavior:: Anxious at times, pleasant and appropiate - Medical History PAST MEDICAL HISTORY/PAST SURGICAL HISTORY:: COPD, right vocal cord cancer, pulmonary emboli, stenosis of carotid artery, peripheal venous insufficiency, peripheal edema, hyperlipidemia, htn, depressive disorder, CVA, cerebral arteriovenous malformation. Surgical: Status post laringectomy, thyroidectomy, r/t primary neoplasm of larynx. General Health:: Fair. History of recent surgery laryngectomy r/t cancer, prolonged hospital stay. Past Psychiatric Treatment:: None - Admission Data Reason for Swing Bed Admission:: Failure to thrive in the community, Family needs education related to trach care , gtube feedings, PT/OT to improve function and ability to care for self at home. Discharge Plan:: Lisa will be discharged home with increase in community services including home health, she will also benefit from in home RT support. She will need coordiantion of all her equipment prior to discharge. LILLI is coordinating through [facility] and should have all her supplies together by Sunday this week. Plan for short term rehab is one week which Lisa agrees to. Family will need education by staff including trach care, suctioning, gtube and feedings. Lisa will also be encourgaged to participate in care to progress toward goal of independence. LILLI has met with [facility] educator and discussed discharge goals and care while SB1 Assessment: Lisa was discharged from [facility] on 11/27/2019 she was not able to ob tain appropiate supplies at time of discharge including trach supplies, humidification or tube feedings. Lisa has two ED visits prior to admission in which the family and she was concerned about the bleeding from her trachotomy. Lisa wants to be home, she does not want to go to a SNF facility however it has been identified that she and her family need more education and support r/t her care needs. CM will assist in coordiantion of services, including community supports and DME prior to Lisa returning home. LILLI has contacted [facility], [facility] and reviewed the plan. CM will contact [facility] and request a team meeting prior to Lisa being discharged home. Pet Sitting: Susan Bennett Date Assessment was completed:: 12/03/19
[2019-12-03 16:37] VITALS: BP 124/97; PULSE 88; RESP 18; TEMP 37; O2SAT 94
[2019-12-03 16:39] VITALS: TEMP 34
[2019-12-03] MEDS: Furosemide 80 MG TAB PO (16:52)
[2019-12-03] MEDS: Nystatin 500000 UNITS/5 ML SUSP 5ML CUP PO ×2 (16:52→19:50)
--- NOTE | 2019-12-03 16:52 | CMSCP_ITS ---
- If Service Date Differs Date of service: 12/03/19 Time of Service: 16:52 Swingbed Plan of Care Plan of care: SWING BED PROGRAM ACTIVITIES/DISCHARGE PLAN OF CARE ACTIVITIES PLAN Date:12/03/2019 Identified Need:Individual activities Intervention/Plan:Activity cart, music, reiki, pet therapy, television and ability to go out on pass when desired with family Initials [facility] DISCHARGE PLAN Date:12/03/2019 Identified Need: intermediate care, trach care, gtube feeds and care, PT/OT Intervention/Plan:PT/OT x 1 week, nursing care r/t tracheotomy, gtube, education to patient and family Coordination of home services, DME and coordinated discharge plan InitialsK
[2019-12-03] MEDS: Insulin Aspart 300 UNITS/3 ML PEN SC (17:09)
[2019-12-03] MEDS: Apixaban 5 MG TAB PO (19:46)
[2019-12-03] MEDS: Metoprolol CR 25 MG TABCR 12.5 MG PO (19:47)
[2019-12-04] VITALS (9 sets, daily range): BP systolic 118–149; BP diastolic 41–58; PULSE 80–107; RESP 16–20; TEMP 34–36.8; O2SAT 92–98
[2019-12-04 06:45] LABS: Abs Immature Grans 0.05 k/cumm (0.0-0.09); Absolute Eosinophil Count 0.02 k/cumm (0.0-0.7); Absolute Lymphocyte Count 1.19 k/cumm (1.2-3.4); Absolute Monocyte Count 1.34 k/cumm (0.11-0.7); Basophils % 0.1; Eosinophils % 0.1; HCT 29.6 % (36.0-46.0); Immature Grans % 0.2 %; Lymphocytes % 5.6; Mean Corp. HGB Concentration 30.4 g/dL (32.0-36.0); Mean Corpuscular Hemoglobin 27.8 pg (27.0-33.0); Mean Corpuscular Volume 91.4 fL (80-95); Mean Platelet Volume 9.5 fL (8.0-11.0); Monocytes % 6.3; Neutrophils % 87.7; RBC 3.24 m/cumm (4.00-5.20); RBC Distribution Width 15.9 % (11.7-14.6); White Blood Cell Count 21.25 k/cumm (4.4-10.8)
[2019-12-04 06:49] LABS: Absolute Basophil Count 0.02 k/cumm (0.0-0.2); Absolute Neutrophil Count 18.64 k/cumm (1.2-6.7)
[2019-12-04 06:59] LABS: ALT 29 U/L (14-59); AST 25 U/L (15-37); Albumin 2.4 g/dL (3.4-5.0); Alkaline Phosphatase 93 U/L (46-116); Anion Gap 7.9 mmol/L (3-11); BUN 18 mg/dL (7-18); Bilirubin, Total 0.6 mg/dL (0.2-1.0); CO2 30.1 mmol/L (21.0-32.0); CREATININE 0.81 mg/dL (0.55-1.02); Calcium 8.5 mg/dL (8.5-10.1); Chloride 99 mmol/L (98-107); Glucose 156 mg/dL (74-106); Potassium 3.3 mmol/L (3.5-5.1); Sodium 137 mmol/L (136-145); Total Protein 6.9 g/dL (6.4-8.2)
[2019-12-04 07:10] LABS: Diff Comment Diff Reviewed; Hypochromasia 2+; Platelet Count 407 x1000/uL (130-400); Polychromasia Present
[2019-12-04] MEDS: Furosemide 80 MG TAB PO (09:06)
[2019-12-04] MEDS: Metoprolol CR 25 MG TABCR 12.5 MG PO ×2 (09:06→19:57)
[2019-12-04] MEDS: Nystatin 500000 UNITS/5 ML SUSP 5ML CUP PO ×4 (09:06→19:58)
[2019-12-04] MEDS: guaiFENesin 200 MG/10 ML CUP 400 MG PO ×2 (09:06→19:57)
[2019-12-04] MEDS: Insulin Aspart 300 UNITS/3 ML PEN SC (09:06)
[2019-12-04] MEDS: Apixaban 5 MG TAB PO ×2 (09:06→19:57)
--- NOTE | 2019-12-04 09:06 | W.NUTRFU ---
Date of service: 12/04/19 Time of Service: 09:55 Nutritional Follow up NOTE: Family has brought in [facility], pharmacy providing beneprotein. Following tube feeding regime as at home and eating > 50% of pureed meals. Meeting nutrient/fluid needs for weight maintenance at this time. Time Spent in Nutritional Counseling and Treatment: 0 time spent face to face
--- NOTE | 2019-12-04 09:59 | CHAPLAIN ---
I had a short visit with Lisa yesterday. No family members were there. I explained my role and offered support and gave Lisa a prayer shawl.
--- NOTE | 2019-12-04 10:21 | PGE_ITS ---
Date of Service Date of service: 12/04/19 Time of Service: 10:21 Assessment and Plan Assessment and plan (1) Anxiety: Status: Chronic Assessment and plan: will add sertraline 25 mg po daily, can increase to 50 mg if well tolerated (no gi upset or worsening anxiety/behavioral issues). then can increase outpatient by pcp every 4 weeks or as they see fit. (2) Leukocytosis: Status: Acute Assessment and plan: no fevers or signs of infection. will check urine, cxr to start with and continue to closely monitor. (3) Deficient knowledge of tracheostomy home care: Status: Acute Assessment and plan: continue teaching. 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 will follow up outpatient as directed. was considering precautionary radiation and will discuss with outpatient team to make final decision. she is leaning towards not receiving it. palliative care is following. (7) Pulmonary embolus: Status: Chronic Assessment and plan: respiratory status is stable, continue apixaban. (8) Essential hypertension: Status: Chronic Assessment and plan: stable, continue to monitor and continue home medications (9) Discharge planning issues: Status: Acute Assessment and plan: case management is closely following, plan to discharge home with services. Subjective Subjective Patient reports: feels better Interval history since last seen: patient remains hemodynamically stable with no fevers and oxygenating well, requesting diet be advanced from pureed. no further vomiting or nausea, was likely related to cough yesterday. she has required some minimal suctioning, no bleeding noted. she was very anxious last night, demanding the inner canula be changed frequently, up to hourly. education and support without good effect as she continued to be agitated. otherwise no new issues. Exam Const General: cooperative, healthy appearing, comfortable and no acute distress Nutritional Appearance: average body habitus Orientation: alert, awake and oriented x3 HENMT Head: normal to inspection, normocephalic and atraumatic Mouth: oral mucosae normal Neck Neck: tracheostomy present Resp Effort & Inspection: normal respiratory effort Cardio Rate: regular rate Rhythm: regular rhythm GI Inspection: normal to inspection Palpation: soft Auscultation: normal bowel sounds Skin General skin exam: no rashes or lesions noted Neuro General: alert, awake and oriented x3 Extrem General: normal to inspection, full ROM and no pedal edema Objective Objective Clinical Data: Abnormal lab results 12/04/19 12/04/19 Range/Units 06:20 06:20 WBC 21.25 H (4.4-10.8) k/cumm RBC 3.24 L (4.00-5.20) m/cumm Hgb 9.0 L (12.0-15.5) g/dL Hct 29.6 L (36.0-46.0) % MCHC 30.4 L (32.0-36.0) g/dL RDW 15.9 H (11.7-14.6) % Plt Count 407 H (130-400) x1000/uL Absolute Neutrophils 18.64 H (1.2-6.7) k/cumm Absolute Lymphocytes 1.19 L (1.2-3.4) k/cumm Absolute Monocytes 1.34 H (0.11-0.7) k/cumm Potassium 3.3 L (3.5-5.1) mmol/L Glucose 156 H (74-106) mg/dL Albumin 2.4 L (3.4-5.0) g/dL Vital Signs Temperature 36.5 C 12/04/19 09:08 Temperature Source Tympanic 12/04/19 09:08 Pulse 107 H 12/04/19 09:08 Pulse Rhythm Regular 12/04/19 08:29 Respiratory Rate 20 12/04/19 09:08 Respiratory Effort Non-Labored 12/04/19 08:29 Respiratory Depth Normal 12/04/19 08:29 Respiratory Pattern Normal 12/04/19 08:29 Blood Pressure 149/55 H 12/04/19 09:08 Pulse Oximetry 92 L 12/04/19 09:08 Oxygen Delivery Method Hi Flow Nasal Cannula 12/04/19 09:08 Oxygen Flow Rate 30 12/04/19 08:05 Fraction of Inspired Oxygen (FIO2) 30 12/04/19 09:08 Pain Level 0 12/04/19 09:08 Intake & Output 12/03/19 12/03/1920 11:59 23:59 11:59 Intake Total 240 / 240 Output Total Balance 240 / 240 - Weight 88.6 kg Intake: Oral 240 / 240 Output: Stool Other: Urine Appearance Clear Comment Incontinent of large amount of urine incontinent Stool Characteristics Soft Formed Brown Voiding Methods Bedside Commode Laboratory Results WBC 21.25 k/cumm (4.4-10.8) H 12/04/19 06:20 RBC 3.24 m/cumm (4.00-5.20) L 12/04/19 06:20 Hgb 9.0 g/dL (12.0-15.5) L 12/04/19 06:20 Hct 29.6 % (36.0-46.0) L 12/04/19 06:20 MCV 91.4 fL (80-95) 12/04/19 06:20 MCH 27.8 pg (27.0-33.0) 12/04/19 06:20 MCHC 30.4 g/dL (32.0-36.0) L 12/04/19 06:20 RDW 15.9 % (11.7-14.6) H 12/04/19 06:20 Plt Count 407 x1000/uL (130-400) H 12/04/19 06:20 MPV 9.5 fL (8.0-11.0) 12/04/19 06:20 Immature Gran % 0.2 % 12/04/19 06:20 Neutrophils % 87.7 12/04/19 06:20 Lymphocytes % 5.6 12/04/19 06:20 Monocytes % 6.3 12/04/19 06:20 Eosinophils % 0.1 12/04/19 06:20 Basophils % 0.1 12/04/19 06:20 Absolute Neutrophils 18.64 k/cumm (1.2-6.7) H 12/04/19 06:20 Absolute Lymphocytes 1.19 k/cumm (1.2-3.4) L 12/04/19 06:20 Absolute Monocytes 1.34 k/cumm (0.11-0.7) H 12/04/19 06:20 Absolute Eosinophils 0.02 k/cumm (0.0-0.7) 12/04/19 06:20 Absolute Basophils 0.02 k/cumm (0.0-0.2) 12/04/19 06:20 Differential Comment Diff reviewed 12/04/19 06:20 RBC Morphology See below 12/04/19 06:20 Polychromasia Present 12/04/19 06:20 Hypochromasia 2+ 12/04/19 06:20 Sodium 137 mmol/L (136-145) 12/04/19 06:20 Potassium 3.3 mmol/L (3.5-5.1) L 12/04/19 06:20 Chloride 99 mmol/L (98-107) 12/04/19 06:20 Carbon Dioxide 30.1 mmol/L (21.0-32.0) 12/04/19 06:20 Anion Gap 7.9 mmol/L (3-11) 12/04/19 06:20 BUN 18 mg/dL (7-18) 12/04/19 06:20 Creatinine 0.81 mg/dL (0.55-1.02) 12/04/19 06:20 Estimated GFR/1.73 m2 >= 60.00 (mL/min/1.73m2) 12/04/19 06:20 Glucose 156 mg/dL (74-106) H 12/04/19 06:20 Calcium 8.5 mg/dL (8.5-10.1) 12/04/19 06:20 Total Bilirubin 0.6 mg/dL (0.2-1.0) 12/04/19 06:20 AST 25 U/L (15-37) 12/04/19 06:20 ALT 29 U/L (14-59) 12/04/19 06:20 Alkaline Phosphatase 93 U/L (46-116) 12/04/19 06:20 Total Protein 6.9 g/dL (6.4-8.2) 12/04/19 06:20 Albumin 2.4 g/dL (3.4-5.0) L 12/04/19 06:20
[2019-12-04] MEDS: Sertraline 25 MG TAB PO (10:44)
--- NOTE | 2019-12-04 10:45 | PHARADMIT ---
Addendum entered by Azael Yeung III 12/05/19 15:28: Pharmacy Note Subjective Elevated WBC, positive Chest- X-ray showed possible pneumonia. IV ABX started. Changed to acute. Objective VS-OK K+3.5 WBC-15.16 H&H-up, Assessment Cefepime is the ABX Plan To stay in ICU. No new MD note yet. Original Note: Original Note made prior to Swing Bed Status: AGUS MORELAND Female : 1940 Emr# [id number] 12/03/19 11:38 - Pharmacy Review by Mary Huang [facility] Num: [id number] : 1940 Patient Age: 79 Admission Pharmacy Clinical Review Code Status Full Code Current Weight 88.6 kg Renally Cleared and Narrow Therapeutic Index Meds CrCl ~58ml/min based on adjusted body weight QTc Value / Action Taken n/a BP Control, Fever BP 127/56, afebrile Electrolytes reviewed all wnl DVT Prophylaxis Eliquis Opiate Usage / Scheduled Bowel Regimen Ordered none Plt/SCr for Heparin / Enoxaparin Plt 460, Scr 0.82 INR for Warfarin H/H stable, WBC/Bands H/H 8.8/29.6, WBC 10.12 Antibiotic appropriateness n/a Cultures and Sensitivities Surgical ABX d/c within 24 hr DM control / Insulin Dosing Aspart per SS Heart Failure (Check EF%) (JOSHUA's, B-Block, Diuretics) metoprolol, furosemide IV to PO Switch Home Meds Reviewed Yes, all ok Home Meds Not Ordered Metformin Comments Admitted as family is unable to meet needs for tracheostomy care
--- NOTE | 2019-12-04 11:30 | W.SPEECHNOTE ---
Date of service: 12/04/19 Time of Service: 11:30 Speech Therapy Visit Note Note: Spoke with EQUIPMENT MANAGER Gisell regarding swallow evaluation orders. LITHOPLATE MAKER and EQUIPMENT MANAGER in agreement that pts prior dysphagia history is unknown at this time as pt likely received LITHOPLATE MAKER with instrumental at [facility] and likely has current plan in place. LITHOPLATE MAKER has contacted [facility] oncology for updated information before proceeding with bedside swallow evaluation and is awaiting response.
--- NOTE | 2019-12-04 11:30 | STVN_ITS ---
Date of service: 12/04/19 Time of Service: 11:30 Speech Therapy Visit Note Note: Spoke with STAMPER BLOCKER Gisell regarding swallow evaluation orders. GENERAL UTILITY MAINTENANCE REPAIRER and STAMPER BLOCKER in agreement that pts prior dysphagia history is unknown at this time as pt likely received GENERAL UTILITY MAINTENANCE REPAIRER with instrumental at [facility] and likely has current plan in place. GENERAL UTILITY MAINTENANCE REPAIRER has contacted [facility] oncology for updated information before proceeding with bedside swallow evaluation and is awaiting response.
--- NOTE | 2019-12-04 11:50 | DI.RAD_ITS ---
EXAM: XR CHEST 2V PA LATERAL CLINICAL HISTORY: leukocytosis, cough, TECHNIQUE: COMPARISON: XR CHEST 2V PA LATERAL from 07/31/2019 FINDINGS: Note is made of a tracheostomy tube in position. There is mild cardiomegaly. Comparison with prior chest film 12/02/2019 shows a question increasing focal radiodensity in right lower lung field suspic ious for pneumonia. Mild diffuse pulmonary interstitial prominence again noted but somewhat less sev ere than on the prior study. IMPRESSION: Suspect right basilar pneumonia. Appropriate follow-up studies requested.
[2019-12-04] MEDS: Potassium Chloride Liquid 20 MEQ PKT PO ×2 (14:35→19:58)
[2019-12-04 17:00] LABS: Bilirubin Negative (Negative); Blood Small (Negative); Clarity Cloudy (Clear); Glucose Negative (Negative); Ketones Negative (Negative); Leukocyte Esterase Large (Negative); Nitrite Negative (Negative); Specific Gravity 1.015 (1.005-1.025); pH 7.5 (5-8)
[2019-12-04] MEDS: Furosemide 80 MG TAB 40 MG PO (17:30)
[2019-12-04 17:33] LABS: WBC >50 HPF (0-5)
[2019-12-04 17:34] LABS: Bacteria Many HPF (Negative); C & S Indicated? Yes; Casts Negative LPF (Negative); Crystals Many Amorphous HPF (Negative); Epithelial Cells Moderate HPF (Negative); Mucus Moderate (Negative)
[2019-12-04] MEDS: CEFEPIME 1 GM in Normal Saline 50 ML IVPB (19:00)
[2019-12-05] MEDS: CEFEPIME 1 GM in Normal Saline 50 ML IVPB ×2 (01:58→10:29)
[2019-12-05 05:42] VITALS: TEMP 34
[2019-12-05 06:32] LABS: Abs Immature Grans 0.03 k/cumm (0.0-0.09); Absolute Basophil Count 0.03 k/cumm (0.0-0.2); Basophils % 0.2; Eosinophils % 0.7; HGB 9.4 g/dL (12.0-15.5); Immature Grans % 0.2 %; Lymphocytes % 9.9; Mean Corp. HGB Concentration 30.3 g/dL (32.0-36.0); Mean Corpuscular Hemoglobin 27.3 pg (27.0-33.0); Mean Corpuscular Volume 90.1 fL (80-95); Mean Platelet Volume 9.3 fL (8.0-11.0); Monocytes % 6.9; Neutrophils % 82.1; Platelet Count 447 x1000/uL (130-400); RBC 3.44 m/cumm (4.00-5.20); RBC Distribution Width 15.8 % (11.7-14.6); White Blood Cell Count 15.16 k/cumm (4.4-10.8)
[2019-12-05 06:38] LABS: Absolute Eosinophil Count 0.11 k/cumm (0.0-0.7); Absolute Monocyte Count 1.05 k/cumm (0.11-0.7); Absolute Neutrophil Count 12.45 k/cumm (1.2-6.7)
[2019-12-05 06:44] LABS: Anion Gap 9.9 mmol/L (3-11); BUN 14 mg/dL (7-18); CO2 27.1 mmol/L (21.0-32.0); CREATININE 0.74 mg/dL (0.55-1.02); Calcium 8.5 mg/dL (8.5-10.1); Chloride 99 mmol/L (98-107); Glucose 137 mg/dL (74-106); Potassium 3.5 mmol/L (3.5-5.1); Sodium 136 mmol/L (136-145)
[2019-12-05 07:05] VITALS: TEMP 34
[2019-12-05 08:29] VITALS: BP 136/47; PULSE 78; RESP 18; TEMP 34; TEMP 36.1; O2SAT 91
[2019-12-05] MEDS: Nystatin 500000 UNITS/5 ML SUSP 5ML CUP PO ×2 (08:54→14:05)
[2019-12-05] MEDS: guaiFENesin 200 MG/10 ML CUP 400 MG PO (08:54)
[2019-12-05] MEDS: Metoprolol CR 25 MG TABCR 12.5 MG PO (08:54)
[2019-12-05] MEDS: Apixaban 5 MG TAB PO (08:55)
[2019-12-05] MEDS: Furosemide 80 MG TAB 40 MG PO (08:55)
[2019-12-05] MEDS: Sertraline 25 MG TAB PO (08:56)
[2019-12-05] MEDS: Potassium Chloride Liquid 20 MEQ PKT PO (08:56)
--- NOTE | 2019-12-05 10:50 | OTIE_ITS ---
Occupational Therapy Notes Inpatient Occupational Therapy Evaluation Date: 12/05/19 Referring Doctor:Gisell Aguilera NP OT Orders: Non-Urgent Precautions: Fall, Standard, Full code PATIENT PROFILE/ADMITTING DIAGNOSIS: Pt is a 79 year old female currently under [facility] bed 1 status with a dx of hypokalemia, anxiety, leukocytosis, COPD, pharynogoesphageal dysphagia, (R) vocal cord cancer, pulmonary embolus, HTN after a 79 day stay at [facility] which she was discharged on 11/27/19.She was seen in the ED on 12/02/19 for transition from home health care to hospice, Deficient knowledge of tracheostomy home care and failure to thrive in community setting at this time. Past Medical History- refer to pts EMR. Social History/Home Situation: Lisa lives in her own home and her family provides supportive care. She has three children Jasmin, Trini and Abdulaziz who all provide support at home. Lisa was recently discharged from [facility] on 11/27/2019 status post trach after surgical removal of her thyroid and Larnx. She states that she is (I) at her baseline in terms of ADLs/IADLs. She has a walk in shower with a seat per pt report. She states that she did not need (A) but was provided (A) from her family as needed. She communicates currently with a white board which seems to be most efficient for her at this time. She states that she is (I) with eating. SUBJECTIVE: Pt was sitting in chair when OT arrived. She was agreeable to OT session noting that she is tired. OBJECTIVE: General Observation: Pleasant and able to answer questions appropriately with use of white board. Mental Status: A&Ox3 Pain: no c/o pain ROM: RUE AROM WFL L UE AROM WFL STRENGTH: RUE Shoulder flexion 3/5, bicep 4/5, tricep 4/5, cellars supervisor is symmetrical LUE Shoulder flexion 4/5, bicep 4/5, tricep 4/5, cellars supervisor is symmetrical FUNCTIONAL MOBILITY/ADLS: BATHING sitting in chair Bathing UE (I) with washing hands denies all other washing. Has functional ROM to perform this for (B) UE. DRESSING Pt denies (B) socks at this time. She can reach in sitting position to her knees. EATING Min (A) opening containers otherwise (I) in sitting position in the chair. Requests that her pills be crushed to RN. Speech consult was ordered. BALANCE: Static sitting Normal Dynamic Sitting Good SPECIAL TESTS: Daily Activity Limitations Standardized Measure [facility] AM -PAC ?6 clicks? Daily Activity Inpatient Short Form: Raw score: 20 Standardized score: 42.03 CMS score: 38.32% INFORMED CONSENT/EDUCATION: Pt instructed in purpose of OT Consult and plan of care. ASSESSMENT: Patient is a 79-year-old female referred to occupational therapy services with diagnosis of [facility] bed 1 status with a dx of hypokalemia, anxiety, leukocytosis, COPD, pharynogoesphageal dysphagia, (R) vocal cord cancer, pulmonary embolus, HTN after a 79 day stay at [facility] which she was discharged on 11/27/19.She was seen in the ED on 12/02/19 for transition from home health care to hospice, Deficient knowledge of tracheostomy home care and failure to thrive in community setting at this time. Patient presents with clinical signs and symptoms consistent with dx, as demonstrated by the following impairment level findings/ functional limitations: Decreased functional activity tolerance, decreased (I) in tracheostomy limiting functional (I), decreased (B) LE dressing, decreased performance of (B) LE bathing, decreased standing ADLs. OT feels that pt would benefit from skilled OT services to increase her functional (I) in ADL/IADL routines as well as functional activity tolerance. AMPAC score 20 Patient is assessed as a Moderate 23144 complexity based on the following: History: See above Examination: see above Presentation: evolving Decision Making: AMPAC score 20 GOALS Goals x1 week 1. Transfers with FWW (S) 2. Dressing sitting in chair (I) with UE/LE dressing 3. Bathing sitting in chair (I) with UE/ min (A) LE, pt will be able to wash face and (B) UE standing at sink 4. Toileting on toilet min (A) 5. Eating (I) PLAN OF CARE/TREATMENT PLAN: 1x/day, 5 days/ week x 1week Initiate Occupational Therapy Services for bathing, dressing, grooming, toileting, eating, transfer training. DISCHARGE RECOMMENDATIONS Home with services. TREATMENT TIME/MINUTES/CODES 07019, [id number], 20 minutes (08:55) [facility]
--- NOTE | 2019-12-05 14:21 | CMPROGNOTE_ITS ---
- If Service Date Differs Date of service: 12/05/19 Time of Service: 14:21 Care Management Progress Note S/O: Lisa developed a elevated white count yesterday chest x-ray showed possible pneumonia, she was started on IV antibiotics. She will change to acute level of care today, she remains in the ICU. LILLI is coordinating a team meeting, including chronic gericare aide teacher at [facility], home health, respiratory supports through [facility], as well as family. Anticipate the meeting will be e pratibha next week. Lsia did have long-term Medicaid clinical evaluation yesterday, clinical was approved waiting financial approval. Lisa does not want to go to a facility and would prefer to return home when she is medically ready. CM has discussed with family point person to discuss medical care with, would like both daughters and son in for teaching related to trach and feedings. Trini has been identified as the adjuster electrical contacts at this time. RT is working on a visual guide for patient and family to provide ongoing education for trach care. 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 Admitted to swing bed for PT/OT, trach and retirement care. For essentially failure to thrive at home and difficulty managing trach. Lisa will now be acute related to elevated white count, and pneumonia and need for IV antibiotics. P: Lisa be discharged home when medically ready. CM will coordinate team meeting prior to discharge. [facility] will deliver her trach supplies here today. RT will assist in putting a go bag together and ensuring supplies are appropriate. Nursing and RT continue to provide education related to trach care to patient and family. I renal transport home with family at time of discharge.
--- NOTE | 2019-12-05 14:47 | PT.INIE ---
Date of service: 12/05/19 Time of Service: 13:03 PT Notes Visit Reasons: S/P LARYNGECTOMY, PYRIFORM SINUS MASS Physical Therapy Inpatient Initial Evaluation Date: 12/05/2019 Referring Doctor: Gisell Aguilera N.P. PT Orders: PT CONSULT: Limited ability Precautions: Fall. Standard. Activity as tolerated. Patient Profile/Admitting Diagnosis: Patient is an 79-year-old female with a history of pulmonary embolism, squamous cell carcinoma, vocal cord carcinoma, and s/p radiation, s/p laryngectomy and thyroidectomy, and tracheostomy placement. She presented to the ER on 11/30/2019 and 12/02/2019 with tracheostomy problems. Admitted to the hospital with diagnoses of deficient knowledge of tracheotomy care, pulmonary embolism, R vocal cord cancer, and COPD. PMHX: Anxiety Depression COPD Phyryngoesophageal dysphagia Pyriform sinus mass Vocal cord paralysis Vitamin D deficiency Urinary incontinence Cerebral AV malformation Chronic venous insufficiency Low back pain CVA Social History/Home Situation: Pt lives alone at home in [place]. She notes there are not stairs to enter the home and none once in the home. Has two daughters and one son that live nearby and help around the home. Equipment Owned/DME: four-wheeled walker Subjective: Patient reports [place] [facility] [place] on oxygen when walking. Per nursing, the patient was not on oxygen when at home. Per medical records, the patient?s family is not able to care for her at home. The patient reports that she had previously been able to perform her own cooking. Objective: General Observation: Tracheostomy, O2 on 2 L/min via tracheostomy on 30 L with 26% oxygen with humidification, feeding tube in left abdominal wall Mental Status: Patient is non-verbal. She is able to mouth some words, but often requires white board/paper and pen to write. Pain: 0/10 Vital Signs: Patient desaturated to 85% on room air during ambulation activity ROM: Right Upper Extremity: Shoulder Flexion WFL. Shoulder abduction WFL. Elbow flexion WFL. Wrist flexion WFL. Opening and closing of hand WFL. Left Upper Extremity: Shoulder Flexion WFL. Shoulder abduction WFL. Elbow flexion WFL. Wrist flexion WFL. Opening and closing of hand WFL. Right Lower Extremity: Hip flexion WFL. Hip abduction WFL. Knee flexion WFL. Ankle dorsiflexion WFL. Ankle plantarflexion WFL. Left Lower Extremity: Hip flexion WFL. Hip abduction WFL. Knee flexion WFL. Ankle dorsiflexion WFL. Ankle plantarflexion WFL. Strength: Right Upper Extremity: Shoulder flexors 3+/5. Shoulder abductors 3+/5. Elbow flexors 5/5. Elbow extensors 5/5. Hydropulper strong. Left Upper Extremity: Shoulder flexors 3+/5. Shoulder abductors 3+/5. Elbow flexors 5/5. Elbow extensors 5/5. Hydropulper strong. Right Lower Extremity: Hip flexors 5/5. Hip abductors 5/5. Knee flexors 5/5. Knee extensors 5/5. Ankle dorsiflexors 5/5. Ankle plantarflexors 5/5. Left Lower Extremity: Hip flexors 5/5. Hip abductors 5/5. Knee flexors 5/5. Knee extensors 5/5. Ankle dorsiflexors 5/5. Ankle plantarflexors 5/5. Sensation: Intact as to pain and pressure on bilateral lower extremities. Bed Mobility/Transfers: Sit to stand SBA Stand to sit SBA Bed to chair SBA Chair to bed SBA Gait: Pt was able to ambulate 60 feet + 5 feet + 10 feet, full weightbearing, using a front-wheeled walker. Reciprocal gait pattern. Decreased step length and height. CGA provided by PT student with SBA provided by PT and wheelchair follow by the patient?s son. After the first 60 feet the patient desaturated to 85% on RA and was transported via wheelchair back to her room. She complained of increased fatigue and required a standing rest break during the last 4 feet when ambulating from her commode to the recliner. Balance: Static Sitting: Normal Dynamic Sitting: Normal Static Standing: Fair Dynamic Standing: Fair Special Tests: Mobility Limitations Standardized Measure [facility] AM-PAC 6 clicks Basic Mobility Inpatient Short Form: Raw Score: 20 CMS Score: 36% deficit Informed Consent/Education: Patient instructed in purpose of PT consult and plan of care. Assessment: Patient is an 79-year-old female with a history of pulmonary embolism, squamous cell carcinoma, vocal cord carcinoma, and s/p radiation, s/p laryngectomy and thyroidectomy, and tracheostomy placement. She presented to the ER on 11/30/2019 and 12/02/2019 with tracheostomy problems. Admitted to the hospital with diagnoses of deficient knowledge of tracheotomy care, pulmonary embolism, R vocal cord cancer, and COPD. Pt presents with impairment level findings and functional limitations as listed below. She would benefit from skilled physical therapy at this time for improved tolerance to activity, strengthening, and improvements in balance. Conversation with nurse Connelly about the need for a connector tube for oxygen supplementation during ambulation activity was done. She stated that she will reach out to [facility] about said issue. Patient presents with clinical signs and symptoms consistent with current/admitting diagnoses that have resulted to mobility limitations, gait instability, and generalized weakness as demonstrated by the following impairment level findings: 1. Decreased strength to B UE shoulder muscle groups 2. Impaired standing balance 3. Impaired activity tolerance 4. Impaired respiratory function Impairments are contributing to the following functional limitations: 1. Dependent bed mobility skills 2. Increased dependence with transfers 3. Inability to safely ambulate without assistive device and physical assistance 4. Increase completion time for mobility ADL performance 5. Increased fall risk 6. Inability to negotiate steps alone safely Patient is assessed as a 42955 moderate complexity based on the following: History: Patient is an 79-year-old female with a history of pulmonary embolism, squamous cell carcinoma, vocal cord carcinoma, and s/p radiation, s/p laryngectomy and thyroidectomy, and tracheostomy placement. She presented to the ER on 11/30/2019 and 12/02/2019 with tracheostomy problems. Admitted to the hospital with diagnoses of deficient knowledge of tracheotomy care, pulmonary embolism, R vocal cord cancer, and COPD. Pt presents with impairment level findings and functional limitations as addressed above. AM-PAC raw score of 20 with 36% deficit. Examination: Demonstrable impairment in strength, and balance with underlying impairments and functional limitations as documented above Presentation: Evolving Decision Makin Goals: Goals X1 week 1. Supine-Sit independent 2. Sit-Supine independent 3. Sit-Stand independent 4. Stand-Sit independent 5. Bed-Chair independent 6. Chair-Bed independent 7. Independent gait on level surface with use of least restrictive device for at least 300 feet without report of pain nor dyspnea 9. Independent with home exercise program 10. Good static and dynamic standing balance/tolerance Plan of Care/Treatment Plan: 1-2x/day, 7 days/week x 1 week. Plan of care has been reviewed with the SHIPPING TEAM LEADER providing the service under Physical Therapy direction. Initiate Physical Therapy intervention for strengthening, bed mobility, transfers, gait, stairs, balance training, use of assistive device. DISCHARGE RECOMMENDATIONS: Patient will benefit from jail facility placement for continued skilled physical therapy services in order to progress mobility level, strength, and balance in preparation for a safe discharge to home. She would benefit from additional education on tracheostomy care to prevent further problems and recurrent visits to the ER for tracheostomy issues. TREATMENT CODE/TIME: 38276 x 30 minutes, 72458 x 12 minutes beginning at 13:03 P.M. Thank you very much for this referral. Polo Azul, SPT Doctor of Physical Therapy Student [facility] Supervision provided by: Valeria Reyes PT, DPT, CLT [facility] [place], [place]
--- NOTE | 2019-12-05 19:02 | DSE_ITS ---
Date of service: 12/05/19 Time of Service: 19:02 Assessment and Plan Assessment and plan (1) Pneumonia of right lower lobe due to infectious organism: Status: Acute Assessment and plan: Patient appears to have developed a right lower lobe pneumonia since admission. The initial chest x-ray did show a hint of infiltrate on the right but it is more consolidated on the 12/04/2019 chest x- ray. Her white count was 21,000 and has come down to 15,000 today. She is not had any fevers. Her oxygen saturation has been good. She is empirically treated with cefepime 1 g every 8 hours. (2) UTI (urinary tract infection): Status: Acute Assessment and plan: A urine culture is growing out gram-negative rods greater than 100,000 colonies. Specificity and sensitivities are pending. Is likely covered by the cefepime. (3) Anxiety: Status: Chronic Assessment and plan: Extreme anxiety and concerned about the tracheostomy. Ongoing teaching and reassurance. 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 The plan is for further revision of the tracheostomy and radiation therapy to this region. Overall seems stable at this time. (5) Tracheostomy care: Status: Acute Assessment and plan: Ongoing care with respiratory therapy. She has supplies that were delivered today. We are trying to normalize and train family members as best we can. (6) Discharge planning issues: Status: Acute Assessment and plan: Patient is a full code. She is receiving tube feeds and supplement to what she can take p.o. Plan is to transition home. History of Present Illness History of Present Illness Chief Complaint: Right lower lobe pneumonia/tracheostomy care Narrative: This is an 79-year-old woman who has a history of laryngeal cancer. She underwent a laryngectomy procedure about 3 months ago at [facility]. It was a long complicated recovery. Post hospitalization she was at a jail in [facility]. She was home with family members caring for her for about 6 days. She was sent to the emergency room because of continued bleeding from her trachea. It turns out family members were suctioning through the trachea on a regular basis, causing some bleeding to occur which resulted in her being sent to the emergency room for evaluation. She was admitted and respiratory therapy worked with the patient and her family on proper suctioning techniques. The bleeding stopped. She was transition to swing bed in anticipation of returning home. She developed a cough and had a high white count so a chest x-ray was obtained on 12/04/2019. She was started on IV antibiotics for right lower lobe pneumonia. Urinalysis also showed evidence of infection. She was transitioned back to acute today. Review of Systems Narrative: Patient cannot speak but communicates effectively with facial expressions nodding and writing things out on paper. Her hearing appears to be very good. Her comprehension is excellent. She offers no specific complaints today. [facility] Medical History Benign paroxysmal vertigo Benign paroxysmal vertigo, unspecified ear (Resolved) Cataract (Resolved) O.U 02/24/14; Dr. Martin left extraction 03/10/14; Dr. 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 L hip-mild acetabular spurring 2014 - severe arthritis at facet joints Lumbago Oral ulcer (Resolved) 12/07/16 Peripheral edema (Chronic 07/31/16) Peripheral venous insufficiency (Chronic 12/03/08) edema Polyp of colon (Resolved) colonoscopy of 01/09/11-multiple polyps at multiple locations. 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 Very hard to regulate and cannot afford alternatives. Understands the risks. Repeat again - PE. back on anticoagualtion Seizure (Resolved) ? of seizures; on medication for time; now off w/no change Stenosis of carotid artery (Chronic 01/20/16) carotid us 01/18 TMJ (temporomandibular joint disorder) (Resolved) right Transient ischemic attack (Resolved 08/04/03) POS MRI R TEMPORAL LOBE. NEG ECHO 2000 Urinary incontinence (Chronic 11/10/14) Vaginal lesion (Resolved) 03/22/16 Venous insufficiency Visual disturbance (Resolved) etiology unclear per -exam of 03/14/11 Vitamin D deficiency Vitamin D deficiency (Chronic 03/11/09) Vulvovaginitis (Resolved) Surgical History Extraction of cataract 02/24/14; LEFT EYE 03/10/14; RIGHT EYE History of bilateral tubal ligation (Resolved) Ligation of fallopian tube Family History Mother , 85 Vaginal cancer Father , 74 Heart disease COPD (chronic obstructive pulmonary disease) Sister , 63 Heart disease ASHD/CHF Lung cancer Maternal Grandmother Heart disease Paternal Grandmother Diabetes Son , 40 Substance abuse Heart disease Sister No problems noted. Sister No problems noted. Son RA (rheumatoid arthritis) Daughter No problems noted. Daughter No problems noted. Paternal Grandfather , 80 No problems noted. Social History Smoking/Tobacco Use Status: Former Tobacco Use Quit Date: 06/05/01 Second Hand Exposure: Yes Alcohol Intake: former Drug use: Never Substance use type: does not use Caregiver/Support person: No Household members: none Housing: house Do you need help understanding health information?: Rarely Pets and animals: No Sexually active: No Current gender identity: female What is your relationship status?: How often do you talk on the phone with friends or family?: decline to answer How often do you get together with friends or relatives?: once per week How often do you attend orthodoxy or scientology services?: decline to answer Do you belong to any clubs or organized social groups?: no Panel score (0-1 are the most socially isolated patients): 0 What type of physical activity do you participate in: decline to answer Duration: decline to answer Frequency: decline to answer Bethany/Methodist: Pentecostalism Special bethany needs: No Seatbelt use: always Helmet use: No Drive intox or ride w/intox driver examiner: No Do you feel safe at home: Yes Do you feel safe in your relationship?: Yes Meds Home Medications and Allergies Home Medications Medication Instructions Recorded Confirmed Type apixaban 5 mg tablet 5 mg PO BID #60 tab 11/21/18 12/02/19 Rx albuterol sulfate 90 mcg/actuation 2 puff IH QID PRN #8.5 gm 08/01/19 12/02/19 Rx aerosol inhaler ipratropium 0.5 mg-albuterol 3 mg 3 ml IH QID PRN #180 ml 11/28/19 12/02/19 Rx (2.5 mg base)/3 mL nebulization soln guaifenesin 100 mg/5 mL oral liquid 400 mg PO BID #1000 ml 11/29/19 12/02/19 Rx nystatin 100,000 unit/mL oral 500,000 unit BC QID #250 ml 11/29/19 12/02/19 Rx suspension metoprolol succinate 12.5 mg PO BID 11/30/19 12/02/19 History furosemide 40 mg PO BID@0830,1600 #60 tab 12/05/19 Rx Allergies Allergy/AdvReac Type Severity Reaction Status Date / Time atorvastatin AdvReac Intermediate pt does Unverified 12/02/19 09:05 not think she has an allergy to this med Exam Narrative Exam Narrative: On exam the patient appears in no apparent distress. Perhaps mildly anxious. She has no obvious facial asymmetry. Her tracheostomy is notably old Bleich off to the left side of her neck. She has a trach mask providing humidified air. Of note when she coughs she covers her mouth and looks for sputum coming out of her mouth when in fact it is coming out of her trach. She does not appear to have comprehension of this process yet. Her lungs sound generally clear on the right and left. Her heart sounds were regular no significant murmur. Her abdomen is soft and nontender. Her PEG tube hidden up under her left breast appears to be without erythema and functioning well. The lower extremities appear to be somewhat weak and deconditioned but show no lesions and are otherwise well perfused. Neurologically she moves both upper and lower extremities without decrement of function. Results Last Vital Signs Temp 36.4 C L 12/05/19 16:10 Pulse 93 H 12/05/19 16:10 Resp 22 12/05/19 16:10 BP 123/49 L 12/05/19 16:10 Pulse Ox 98 12/05/19 16:10
== END 2019-12-05 16:10 | disposition short-term general hospital (02) | DRG 205 ==
PROVIDERS: Nurse Practitioner Acute Care; Admitting Provider Family Medicine; PCP Family Medicine; Visit Provider Family Medicine
DX: Z43.0 Encounter for attention to tracheostomy (principal); J18.1 Lobar pneumonia, unspecified organism; J44.0 Chronic obstructive pulmonary disease with (acute) lower respiratory infection; N39.0 Urinary tract infection, site not specified; Z16.11 Resistance to penicillins; Z16.19 Resistance to other specified beta lactam antibiotics; Z16.29 Resistance to other single specified antibiotic; C32.0 Malignant neoplasm of glottis; D38.5 Neoplasm of uncertain behavior of other respiratory organs; F41.9 Anxiety disorder, unspecified; E87.6 Hypokalemia; R13.14 Dysphagia, pharyngoesophageal phase; Z87.891 Personal history of nicotine dependence; Z86.711 Personal history of pulmonary embolism; Z79.01 Long term (current) use of anticoagulants; I10 Essential (primary) hypertension; B96.1 Klebsiella pneumoniae [K. pneumoniae] as the cause of diseases classified elsewhere; Z93.1 Gastrostomy status
CPT/HCPCS: 36415; 80048; 80053; 87077; 97166; 97535; 99306; 99309; 71046; 81003; 81015; 83735; 85025; 87086; 87186; J3490

== ENCOUNTER 2019-12-05 15:30 | Inpatient (IN) | payer OTHER, MEDICAID, SELFPAY ==
[2019-12-05 12:21] VITALS: BP 133/45; PULSE 83; RESP 22; TEMP 36.4; O2SAT 95
[2019-12-05 16:10] VITALS: BP 123/49; PULSE 93; RESP 22; TEMP 36.4; O2SAT 98
[2019-12-05 17:00] VITALS: TEMP 34
[2019-12-05] MEDS: Nystatin 500000 UNITS/5 ML SUSP 5ML CUP PO ×2 (17:23→19:50)
[2019-12-05] MEDS: Furosemide 40 MG TAB PO (17:23)
[2019-12-05] MEDS: Potassium Chloride Liquid 20 MEQ PKT 40 MEQ PO (17:33)
[2019-12-05] MEDS: CEFEPIME 1 GM in Normal Saline 50 ML IVPB (17:37)
[2019-12-05] MEDS: Insulin Aspart 300 UNITS/3 ML PEN SC (18:08)
[2019-12-05] MEDS: Normal Saline Flush 10 ML SYR (18:57)
--- NOTE | 2019-12-05 19:02 | HPE_ITS ---
Date of service: 12/05/19 Time of Service: 19:02 Assessment and Plan Assessment and plan (1) Pneumonia of right lower lobe due to infectious organism: Status: Acute Assessment and plan: Patient appears to have developed a right lower lobe pneumonia since admission. The initial chest x-ray did show a hint of infiltrate on the right but it is more consolidated on the 12/04/2019 chest x- ray. Her white count was 21,000 and has come down to 15,000 today. She is not had any fevers. Her oxygen saturation has been good. She is empirically treated with cefepime 1 g every 8 hours. (2) UTI (urinary tract infection): Status: Acute Assessment and plan: A urine culture is growing out gram-negative rods greater than 100,000 colonies. Specificity and sensitivities are pending. Is likely covered by the cefepime. (3) Anxiety: Status: Chronic Assessment and plan: Extreme anxiety and concerned about the tracheostomy. Ongoing teaching and reassurance. 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 The plan is for further revision of the tracheostomy and radiation therapy to this region. Overall seems stable at this time. (5) Tracheostomy care: Status: Acute Assessment and plan: Ongoing care with respiratory therapy. She has supplies that were delivered today. We are trying to normalize and train family members as best we can. (6) Discharge planning issues: Status: Acute Assessment and plan: Patient is a full code. She is receiving tube feeds and supplement to what she can take p.o. Plan is to transition home. History of Present Illness History of Present Illness Chief Complaint: Right lower lobe pneumonia/tracheostomy care Narrative: This is an 79-year-old woman who has a history of laryngeal cancer. She underwent a laryngectomy procedure about 3 months ago at [facility]. It was a long complicated recovery. Post hospitalization she was at a correction in [facility]. She was home with family members caring for her for about 6 days. She was sent to the emergency room because of continued bleeding from her trachea. It turns out family members were suctioning through the trachea on a regular basis, causing some bleeding to occur which resulted in her being sent to the emergency room for evaluation. She was admitted and respiratory therapy worked with the patient and her family on proper suctioning techniques. The bleeding stopped. She was transition to swing bed in anticipation of returning home. She developed a cough and had a high white count so a chest x-ray was obtained on 12/04/2019. She was started on IV antibiotics for right lower lobe pneumonia. Urinalysis also showed evidence of infection. She was transitioned back to acute today. Review of Systems Narrative: Patient cannot speak but communicates effectively with facial expressions nodding and writing things out on paper. Her hearing appears to be very good. Her comprehension is excellent. She offers no specific complaints today. [facility] Medical History Benign paroxysmal vertigo Benign paroxysmal vertigo, unspecified ear (Resolved) Cataract (Resolved) O.U 02/24/14; Dr. Martin left extraction 03/10/14; Dr. 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 L hip-mild acetabular spurring 2014 - severe arthritis at facet joints Lumbago Oral ulcer (Resolved) 12/07/16 Peripheral edema (Chronic 07/31/16) Peripheral venous insufficiency (Chronic 12/03/08) edema Polyp of colon (Resolved) colonoscopy of 01/09/11-multiple polyps at multiple locations. 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 Very hard to regulate and cannot afford alternatives. Understands the risks. Repeat again - PE. back on anticoagualtion Seizure (Resolved) ? of seizures; on medication for time; now off w/no change Stenosis of carotid artery (Chronic 01/20/16) carotid us 01/18 TMJ (temporomandibular joint disorder) (Resolved) right Transient ischemic attack (Resolved 08/04/03) POS MRI R TEMPORAL LOBE. NEG ECHO 2000 Urinary incontinence (Chronic 11/10/14) Vaginal lesion (Resolved) 03/22/16 Venous insufficiency Visual disturbance (Resolved) etiology unclear per -exam of 03/14/11 Vitamin D deficiency Vitamin D deficiency (Chronic 03/11/09) Vulvovaginitis (Resolved) Surgical History Extraction of cataract 02/24/14; LEFT EYE 03/10/14; RIGHT EYE History of bilateral tubal ligation (Resolved) Ligation of fallopian tube Family History Mother , 85 Vaginal cancer Father , 74 Heart disease COPD (chronic obstructive pulmonary disease) Sister , 63 Heart disease ASHD/CHF Lung cancer Maternal Grandmother Heart disease Paternal Grandmother Diabetes Son , 40 Substance abuse Heart disease Sister No problems noted. Sister No problems noted. Son RA (rheumatoid arthritis) Daughter No problems noted. Daughter No problems noted. Paternal Grandfather , 80 No problems noted. Social History Smoking/Tobacco Use Status: Former Tobacco Use Quit Date: 06/05/01 Second Hand Exposure: Yes Alcohol Intake: former Drug use: Never Substance use type: does not use Caregiver/Support person: No Household members: none Housing: house Do you need help understanding health information?: Rarely Pets and animals: No Sexually active: No Current gender identity: female What is your relationship status?: How often do you talk on the phone with friends or family?: decline to answer How often do you get together with friends or relatives?: once per week How often do you attend taoism or taoism services?: decline to answer Do you belong to any clubs or organized social groups?: no Panel score (0-1 are the most socially isolated patients): 0 What type of physical activity do you participate in: decline to answer Duration: decline to answer Frequency: decline to answer Bethany/Hindu: Moravian Special bethany needs: No Seatbelt use: always Helmet use: No Drive intox or ride w/intox dumpcart driver: No Do you feel safe at home: Yes Do you feel safe in your relationship?: Yes Meds Home Medications and Allergies Home Medications Medication Instructions Recorded Confirmed Type apixaban 5 mg tablet 5 mg PO BID #60 tab 11/21/18 12/02/19 Rx albuterol sulfate 90 mcg/actuation 2 puff IH QID PRN #8.5 gm 08/01/19 12/02/19 Rx aerosol inhaler ipratropium 0.5 mg-albuterol 3 mg 3 ml IH QID PRN #180 ml 11/28/19 12/02/19 Rx (2.5 mg base)/3 mL nebulization soln guaifenesin 100 mg/5 mL oral liquid 400 mg PO BID #1000 ml 11/29/19 12/02/19 Rx nystatin 100,000 unit/mL oral 500,000 unit BC QID #250 ml 11/29/19 12/02/19 Rx suspension metoprolol succinate 12.5 mg PO BID 11/30/19 12/02/19 History furosemide 40 mg PO BID@0830,1600 #60 tab 12/05/19 Rx Allergies Allergy/AdvReac Type Severity Reaction Status Date / Time atorvastatin AdvReac Intermediate pt does Unverified 12/02/19 09:05 not think she has an allergy to this med Exam Narrative Exam Narrative: On exam the patient appears in no apparent distress. Perhaps mildly anxious. She has no obvious facial asymmetry. Her tracheostomy is notably old Bleich off to the left side of her neck. She has a trach mask providing humidified air. Of note when she coughs she covers her mouth and looks for sputum coming out of her mouth when in fact it is coming out of her trach. She does not appear to have comprehension of this process yet. Her lungs sound generally clear on the right and left. Her heart sounds were regular no significant murmur. Her abdomen is soft and nontender. Her PEG tube hidden up under her left breast appears to be without erythema and functioning well. The lower extremities appear to be somewhat weak and deconditioned but show no lesions and are otherwise well perfused. Neurologically she moves both upper and lower extremities without decrement of function. Results Last Vital Signs Temp 36.4 C L 12/05/19 16:10 Pulse 93 H 12/05/19 16:10 Resp 22 12/05/19 16:10 BP 123/49 L 12/05/19 16:10 Pulse Ox 98 12/05/19 16:10
[2019-12-05] MEDS: Metoprolol CR 25 MG TABCR 12.5 MG PO (19:48)
[2019-12-05] MEDS: Furosemide 80 MG TAB 40 MG PO (19:48)
[2019-12-05] MEDS: Apixaban 5 MG TAB PO (19:49)
[2019-12-05] MEDS: guaiFENesin 200 MG/10 ML CUP 400 MG PO (19:49)
[2019-12-05] MEDS: Potassium Chloride Liquid 20 MEQ PKT PO (19:50)
[2019-12-05 20:05] VITALS: BP 142/58; PULSE 92; RESP 20; TEMP 36.7; O2SAT 96
--- NOTE | 2019-12-05 21:50 | NUR.NOTE ---
2030 Pt declined to have tube feed, stated she felt too full.Nursing Note:
[2019-12-06] VITALS (7 sets, daily range): BP systolic 131–142; BP diastolic 44–62; PULSE 86–88; RESP 16; TEMP 34–36.4; O2SAT 91
[2019-12-06] MEDS: CEFEPIME 1 GM in Normal Saline 50 ML IVPB ×3 (01:52→18:46)
[2019-12-06 06:52] LABS: Abs Immature Grans 0.02 k/cumm (0.0-0.09); Absolute Basophil Count 0.03 k/cumm (0.0-0.2); Absolute Eosinophil Count 0.13 k/cumm (0.0-0.7); Absolute Monocyte Count 0.94 k/cumm (0.11-0.7); Basophils % 0.3; Eosinophils % 1.2; HCT 30.9 % (36.0-46.0); HGB 9.3 g/dL (12.0-15.5); Immature Grans % 0.2 %; Lymphocytes % 10.7; Mean Corp. HGB Concentration 30.1 g/dL (32.0-36.0); Mean Corpuscular Hemoglobin 27.3 pg (27.0-33.0); Mean Corpuscular Volume 90.6 fL (80-95); Mean Platelet Volume 9.6 fL (8.0-11.0); Monocytes % 8.6; Platelet Count 459 x1000/uL (130-400); RBC 3.41 m/cumm (4.00-5.20); RBC Distribution Width 15.7 % (11.7-14.6); White Blood Cell Count 10.89 k/cumm (4.4-10.8)
[2019-12-06 06:54] LABS: Absolute Lymphocyte Count 1.17 k/cumm (1.2-3.4)
[2019-12-06 06:56] LABS: Anion Gap 10.1 mmol/L (3-11); BUN 17 mg/dL (7-18); CO2 26.9 mmol/L (21.0-32.0); CREATININE 0.79 mg/dL (0.55-1.02); Calcium 8.8 mg/dL (8.5-10.1); Chloride 100 mmol/L (98-107); Glucose 151 mg/dL (74-106); Potassium 3.9 mmol/L (3.5-5.1); Sodium 137 mmol/L (136-145)
--- NOTE | 2019-12-06 08:24 | PGE_ITS ---
Date of Service Date of service: 12/06/19 Time of Service: 11:45 Assessment and Plan Assessment and plan (1) Pneumonia of right lower lobe due to infectious organism: Status: Acute Assessment and plan: Continue empiric cefepime. Repeat CXR. Remains afebrile. I think we need to consider a possibility of a tracheo-esophageal fistula. [place] [facility] [place] (2) UTI (urinary tract infection): Status: Acute Assessment and plan: Due to Klebsiella pneumonia, present on admission. Cx shows sensitivity to ceftazidime. Will ask microbio re cefepime - based on clinical improvement, I would prefer to keep her on the same antibiotic at this time. (3) Anxiety: Status: Chronic Assessment and plan: Seems to be controlled with a more measured approach to suctioning. 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 [place] [facility] [place] possibility of a tracheoesophageal fistula. . (5) Tracheostomy care: Status: Acute Assessment and plan: Suctioning only prn, per PT. (6) Nausea and vomiting: Status: Acute Assessment and plan: Assess TF residuals post meals and obtain KUB. May benefit from reglan. (7) Discharge planning issues: Status: Acute Assessment and plan: Full code. Disposition: home with services when ready (8) DVT prophylaxis: Status: Acute Assessment and plan: On therapeutic apixaban. Subjective Subjective Interval history since last seen: States her breathing is better today. Ambulated on 2L, had been on RA during the day. Denies dizziness, chest pain, shortness of breath, abdominal pain. Did vomit this morning. Rhonchi upper lobes noted by nursing - I hear them diffusely. Not requiring suctioning overnight. Did not want tube feeding last night - felt like the food was not going down. Belly distended. Trace blood when wiping after BM. 350 out in 12 hours; saturated breef - 400 cc this am. Awaiting CXR/Flat XR of the abdomen. Exam Narrative Exam Narrative: General: Very pleasant elderly female, seen ambulating in the hallway with a walker and then in her room in the chair, A&Ox3 HEENT: EOMI, MMM, Trach with deviation to the left, patent Heart: RRR, no m/r/g Lungs: rhonchi diffusely B, appear to be resonating sounds of secretions in the trach Abdomen: soft, nontender, nondistended Extremities: 1+ BLE edema, chronic venous stasis dermatitis Objective Objective Clinical Data: Abnormal lab results 12/06/19 12/06/19 Range/Units 06:15 06:15 WBC 10.89 H (4.4-10.8) k/cumm RBC 3.41 L (4.00-5.20) m/cumm Hgb 9.3 L (12.0-15.5) g/dL Hct 30.9 L (36.0-46.0) % MCHC 30.1 L (32.0-36.0) g/dL RDW 15.7 H (11.7-14.6) % Plt Count 459 H (130-400) x1000/uL Absolute Neutrophils 8.60 H (1.2-6.7) k/cumm Absolute Lymphocytes 1.17 L (1.2-3.4) k/cumm Absolute Monocytes 0.94 H (0.11-0.7) k/cumm Glucose 151 H (74-106) mg/dL Vital Signs Temperature 36.7 C 12/05/19 20:05 Temperature Source Temporal Artery Scan 12/05/19 20:05 Pulse 92 H 12/05/19 20:05 Pulse Rhythm Regular 12/06/19 02:54 Respiratory Rate 12/05/19 20:05 Respiratory Effort 12/06/19 02:54 Respiratory Depth Normal 12/06/19 02:54 Respiratory Pattern Normal 12/06/19 02:54 Blood Pressure 142/58 H 12/05/19 20:05 Blood Pressure Mean 73 12/05/19 16:10 Blood Pressure Position Sitting 12/05/19 16:10 Pulse Oximetry 96 12/05/19 20:05 Oxygen Delivery Method Hi Flow System 12/05/19 20:05 Oxygen Flow Rate 30 12/06/19 07:39 Fraction of Inspired Oxygen (FIO2) 26 12/06/19 07:39 Pain Level 0 12/05/19 16:10 Comment 12/05/19 20:05 Intake & Output 12/05/19 12/05/19 12/06/19 11:59 23:59 11:59 Intake Total 200 / 200 240 / 240 Output Total 360 / 360 Balance -160 / -160 240 / 240 Intake: IV 50 / 50 Oral 150 / 150 240 / 240 Output: Urine 360 / 360 Other: Urine Color Yellow Urine Appearance Clear Clear Comment incont. pant weighed Stool Occult Blood Negative Stool Size Small Stool Characteristics Soft Formed Voiding Methods Bedside Commode Laboratory Results WBC 10.89 k/cumm (4.4-10.8) H 12/06/19 06:15 RBC 3.41 m/cumm (4.00-5.20) L 12/06/19 06:15 Hgb 9.3 g/dL (12.0-15.5) L 12/06/19 06:15 Hct 30.9 % (36.0-46.0) L 12/06/19 06:15 MCV 90.6 fL (80-95) 12/06/19 06:15 MCH 27.3 pg (27.0-33.0) 12/06/19 06:15 MCHC 30.1 g/dL (32.0-36.0) L 12/06/19 06:15 RDW 15.7 % (11.7-14.6) H 12/06/19 06:15 Plt Count 459 x1000/uL (130-400) H 12/06/19 06:15 MPV 9.6 fL (8.0-11.0) 12/06/19 06:15 Immature Gran % 0.2 % 12/06/19 06:15 Neutrophils % 79.0 12/06/19 06:15 Lymphocytes % 10.7 12/06/19 06:15 Monocytes % 8.6 12/06/19 06:15 Eosinophils % 1.2 12/06/19 06:15 Basophils % 0.3 12/06/19 06:15 Absolute Neutrophils 8.60 k/cumm (1.2-6.7) H 12/06/19 06:15 Absolute Lymphocytes 1.17 k/cumm (1.2-3.4) L 12/06/19 06:15 Absolute Monocytes 0.94 k/cumm (0.11-0.7) H 12/06/19 06:15 Absolute Eosinophils 0.13 k/cumm (0.0-0.7) 12/06/19 06:15 Absolute Basophils 0.03 k/cumm (0.0-0.2) 12/06/19 06:15 Sodium 137 mmol/L (136-145) 12/06/19 06:15 Potassium 3.9 mmol/L (3.5-5.1) 12/06/19 06:15 Chloride 100 mmol/L (98-107) 12/06/19 06:15 Carbon Dioxide 26.9 mmol/L (21.0-32.0) 12/06/19 06:15 Anion Gap 10.1 mmol/L (3-11) 12/06/19 06:15 BUN 17 mg/dL (7-18) 12/06/19 06:15 Creatinine 0.79 mg/dL (0.55-1.02) 12/06/19 06:15 Estimated GFR/1.73 m2 >= 60.00 (mL/min/1.73m2) 12/06/19 06:15 Glucose 151 mg/dL (74-106) H 12/06/19 06:15 Calcium 8.8 mg/dL (8.5-10.1) 12/06/19 06:15
--- NOTE | 2019-12-06 09:54 | PHARADMIT ---
Addendum entered by Tory Smith 12/14/19 11:52: Pharmacy Note Subjective Objective VS ok, afebrile, lytes good, BG 145 Assessment Nystatin S&S dc'd Patient prefers Potassium tablets by mouth instead of through G-tube Plan Trach change by RT today @ 1300 Likely discharge Sunday Addendum entered by Tory Smith 12/13/19 10:23: Pharmacy Note Subjective No mention of swingbed, currently acute status, Pneumonia & UTI resolved Pt has trach, PEG tube for feeds Objective VS ok, lytes ok, BG 145 Assessment No med changes Plan Anticipated discharge Sunday home with services Addendum entered by Azael Yeung III 12/12/19 15:43: Pharmacy Note Subjective Patient to transition to swing bed until Sunday when she will return home with services. She receive PT & OT here for management of Trach and failure to thrive. Had podiatry consult for toe nails. Objective VS-OK Mag-1.7 K+3.8 Assessment On Reglan to help with distention. Plan No new MD note yet today. Addendum entered by Amy Martin 12/07/19 11:16: Pharmacy Note Subjective in ICU due to trach care needed not ICu status ,? residual from tube feeding causing vomiting?, QUESTION OF FISTULA Objective vs ok, Assessment cefepime continues, no micro, Plan md ordered abd xray, barium swallow, watch for change of abx to PO when appropriate Addendum entered by Amy Martin 12/06/19 09:55: Pharmacy Note Subjective pt with trach, vomited this AM but overall improving Objective in ICU due to trach care needed not ICu status, afebrile WBC going down, UC from 12/04 shows Kleb pneu resistant to cefazolin but sensitive to ceftaz, ceftriaxone Assessment ? residual from tube feeding causing vomiting?, cefepime started yesterday Plan watch for change of abx to PO Addendum entered by Amy Martin 12/06/19 09:54: 12/04/19 10:45 - Pharmacy Review by Mary Huang [facility] Num: [id number] : 1940 Patient Age: 79 Addendum entered by Azael Yeung III 12/05/19 15:28: Pharmacy Note Subjective Elevated WBC, positive Chest- X-ray showed possible pneumonia. IV ABX started. Changed to acute. Objective VS-OK K+3.5 WBC-15.16 H&H-up, Assessment Cefepime is the ABX Plan To stay in ICU. No new MD note yet. Original Note: AGUS MORELAND Female : 1940 Emr# [id number] 12/03/19 11:38 - Pharmacy Review by Mary Huang [facility] Num: [id number] : 1940 Patient Age: 79 Admission Pharmacy Clinical Review Code Status Full Code Current Weight 88.6 kg Renally Cleared and Narrow Therapeutic Index Meds CrCl ~58ml/min based on adjusted body weight QTc Value / Action Taken n/a BP Control, Fever BP 127/56, afebrile Electrolytes reviewed all wnl DVT Prophylaxis Eliquis Opiate Usage / Scheduled Bowel Regimen Ordered none Plt/SCr for Heparin / Enoxaparin Plt 460, Scr 0.82 INR for Warfarin H/H stable, WBC/Bands H/H 8.8/29.6, WBC 10.12 Antibiotic appropriateness n/a Cultures and Sensitivities Surgical ABX d/c within 24 hr DM control / Insulin Dosing Aspart per SS Heart Failure (Check EF%) (JOSHUA's, B-Block, Diuretics) metoprolol, furosemide IV to PO Switch Home Meds Reviewed Yes, all ok Home Meds Not Ordered Metformin Comments Admitted as family is unable to meet needs for tracheostomy care
[2019-12-06] MEDS: Insulin Aspart 300 UNITS/3 ML PEN SC ×3 (10:26→22:27)
[2019-12-06] MEDS: Nystatin 500000 UNITS/5 ML SUSP 5ML CUP PO ×4 (10:27→22:29)
[2019-12-06] MEDS: Metoprolol CR 25 MG TABCR 12.5 MG PO ×2 (10:27→22:31)
[2019-12-06] MEDS: Potassium Chloride Liquid 20 MEQ PKT PO ×2 (10:27→22:34)
[2019-12-06] MEDS: Furosemide 80 MG TAB 40 MG PO ×2 (10:27→22:30)
[2019-12-06] MEDS: Apixaban 5 MG TAB PO ×2 (10:27→22:31)
[2019-12-06] MEDS: guaiFENesin 200 MG/10 ML CUP 400 MG PO ×2 (10:28→22:29)
--- NOTE | 2019-12-06 12:46 | INITIAL_ITS ---
- If Service Date Differs Date of service: 12/06/19 Time of Service: 12:47 Care Management Initial Assess REASON FOR HOSPITALIZATION:: RLL Pneumonia PAST MEDICAL HISTORY/PAST SURGICAL HISTORY:: COPD, right vocal cord cancer, pulmonary emboli, stenosis of carotid artery, peripheal venous insufficiency, peripheal edema, hyperlipidemia, htn, depressive disorder, CVA, cerebral arteriovenous malformation. Surgical: Status post laringectomy, thyroidectomy, r/t primary neoplasm of larynx. PREVIOUS FUNCTIONAL STATUS/SOCIAL/FAMILY SUPPORTS:: Lisa lives in her own home and her family provides supportive care. She has three children Jasmin, Trini and Abdulaziz who all provide support at home. Lisa was recently discharged from [facility] [place] [place] on 11/27/2019 status post trach after surgical removal of her thyroid and Larnx. CURRENT FUNCTIONAL STATUS:: Lisa is alert she is oriented and able to make her own decisions. CM met with Lisa at length she does not want to be a burden on her family. Lisa has not had what she needs since the last discharge from [facility] [place] [place] on 11/27/2019. [employer] was the DME company for tube feedings, trach supplies and oxygen. Lisa has not received any of her supplies to date other then suction, oxygen and humidification. She is still awaiting the trach supplies including the cannula inner trach. [facility] did not have the appropiate orders at time of Lisa's discharge and the DME supplies were not ordered until clarification. Abdulaziz her son has been carring for the trach at home, however due to increased mucous plugging and pink tinged sputum he feels he can not manage it and that she needs to be in the hospital. Lisa is considering intermediate to take the burden off her family. Lisa has made it clear she is not ready for hospice care however she acknowledges she needs more support and coordination of community services including home health support, private caregivers and assistance with completion in [facility] medicaid application for [facility] payer source. ADVANCE DIRECTIVES:: Multiple ADs and COLST forms on chart Has patient been provided with information about the portal?: Yes Did the patient sign up for the portal?: No CODE STATUS:: Full Code INSURANCE COVERAGE / FINANCIAL ISSUES:: [facility] CURRENT HOME/COMMUNITY SERVICES/EQUIPMENT:: DME [employer], Oxygen, humidification, suctiion, feeding tube. oncology, supports through [facility] [place] [place] PRIMARY CARE PHYSICIAN:: Dr. Sánchez POTENTIAL DISCHARGE NEEDS:: Coordiantion of home health services including DME, and [facility] care supports, continues palliative care supports. PATIENT/FAMILY EDUCATION NEEDS:: Discharge education, limitations follow up plan of care, benefits and community resources and referrals including benefits. ANTICIPATED BARRIERS TO DISCHARGE:: adequate equipment , supplies and education re: trach care TRANSPORTATION:: pending disposition PLAN:: Lisa be discharged home when medically ready. CM will coordinate team meeting prior to discharge. [employer] will deliver her trach supplies here. RT will assist in putting a go bag together and ensuring supplies are appropriate. Nursing and RT continue to provide education related to trach care to patient and family. Lisa will transport home with family at time of discharge.
--- NOTE | 2019-12-06 12:46 | PT.INTREAT ---
Date of service: 12/06/19 Time of Service: 11:20 PT Notes Visit Reasons: RIGHT LOWER LOBE PNEUMONIA/TRACHEOSTOMY CARE Inpatient Physical Therapy Treatment Note [facility] Date: 11/05/19 PRECAUTIONS:Fall, standard and Tracheostomy tube SUBJECTIVE: Indicated she did not want to walk due to difficulty breathing, but agreed when we discussed using tracheotomy collar for O2 supplement. OBJECTIVE: PAIN: No complaints of pain. BED MOBILITY/TRANSFERS Up in recliner when I arrived Sit-stand: SBA Stand-sit: SBA GAIT Assistive Device: FWW Weight bearing: FWB Assist: CGA Distance: 110ft VITALS: O2 reading post ambulation was 91% with O2 supplement at 1.5L ASSESSMENT: Tolerated ambulation very will with O2 supplement in place. PLAN: Continue with current POC as able to tolerate. TREATMENT CODE/TIME: 11:20 to 11:40 (20'), [id number]
--- NOTE | 2019-12-06 13:01 | DI.RAD_ITS ---
EXAM: XR PORTABLE CHEST AP INDICATION: follow up pneumonia. COMPARISON: XR CHEST 2V PA LATERAL from 12/04/2019 TECHNIQUE: 2D digital imaging was performed. FINDINGS: The heart size is stable and within normal limits. The pulmonary vasculature is within normal limits . The tracheostomy tube is again noted and lies 6 centimeters from the angelica. There is prominence of the interstitium bilaterally. This may represent edema or an infection. No pleural effusion or p neumothorax is identified. IMPRESSION: Prominent interstitial markings. This may represent edema or infection. Please correlate clinically . There are interstitial infiltrates present in the lungs.
--- NOTE | 2019-12-06 13:15 | DI.RAD_ITS ---
EXAM: XR ABDOMEN FLAT PLATE INDICATION: abdominal distention. CT CHEST PE CTA from 11/30/2019 TECHNIQUE: 2D digital imaging was performed. FINDINGS: This is a limited examination due to the decreased ability of the patient to cooperate. There are mi ldly dilated loops of air-filled bowel. This may represent an ileus. Obstruction considered less li adriel. The patient has a PEG tube the left abdomen. There are degenerative changes seen in the spine . IMPRESSION: Air-filled loops of large and small bowel. This likely reflects an ileus. Obstruction considered le ss likely.
--- NOTE | 2019-12-06 13:56 | DI.VRAD_ITS ---
PROCEDURE INFORMATION: Exam: XR Abdomen, 1 View Exam date and time: 12/06/2019 1:08 PM Age: 79 years old Clinical indication: Other: Abdominal distension TECHNIQUE: Imaging protocol: XR of the abdomen. Views: Frontal supine view of the abdomen. 1 View. COMPARISON: No relevant prior studies available. FINDINGS: Tubes, catheters and devices: Gastrostomy tube terminates in the left abdomen Gastrointestinal tract: Multiple air-filled loops of bowel may represent obstruction or ileus. Bones/joints: Degenerative changes in the thoracolumbar spine IMPRESSION: Multiple air-filled loops of bowel may represent obstruction or ileus. Dictated and Authenticated by: Tatianna Peña MD. Ordering:DYAN Beckham MD
--- NOTE | 2019-12-06 13:58 | DI.VRAD_ITS ---
PROCEDURE INFORMATION: Exam: XR Chest, 1 View Exam date and time: 12/06/2019 1:04 PM Age: 79 years old Clinical indication: Other: Follow up pneumonia TECHNIQUE: Imaging protocol: XR of the chest Views: 1 view. COMPARISON: CR XR CHEST 2V PA LATERAL 12/04/2019 11:54 AM FINDINGS: Tubes, catheters and devices: Tracheostomy tube terminates 5.6 cm above the angelica Lungs: Mild opacities in the left base may represent atelectasis or pneumonia. Pleural space: There may be mild left pleural effusion. Heart/Mediastinum: Stable cardiac silhouette Bones/joints: Degenerative changes in the glenohumeral joints IMPRESSION: 1. Mild opacities in the left base may represent atelectasis or pneumonia. 2. There may be mild left pleural effusion. Dictated and Authenticated by: Tatianna Peña MD. Ordering:DYAN Beckham MD
--- NOTE | 2019-12-06 21:04 | SCONE_ITS ---
Date of service: 12/06/19 Time of Service: 21:04 Assessment and Plan Assessment and plan (1) UTI (urinary tract infection): Status: Acute (2) Pneumonia of right lower lobe due to infectious organism: Status: Acute (3) COPD (chronic obstructive pulmonary disease): Status: Chronic (4) Pulmonary embolus: Status: Chronic Assessment and plan: unclear if she had a new PE after this surgery in 2019 or if it was in 2018. (5) Peripheral venous insufficiency: Status: Chronic (6) Peripheral edema: Status: Chronic (7) Essential hypertension: Status: Chronic (8) Depressive disorder: Status: Chronic (9) Cerebrovascular accident (CVA): Status: Chronic (10) Adynamic ileus: Status: Acute Assessment and plan: I think today, is just an ileus from being in bed and being ill w/ pneumonia. She has no signif abdom surgical hx except from a remote tubal. Tube feedings usually cause diarrhea and not obstipaton. I am concerned tat this could be an aspiration pneumonia, from her recent surgery. Or a TE fistula. Or other type of surgical complication. She did have signif problems w/ infections and non healing after her surgery. She cannot lie flat to do a CT or MRI b/c of severe reflux/nausea. I do feel she needs a modified barium swallow eval to make sure there is no problems w/ the surgery. She should continue Abx therapy and PT/OT and speech therapy. We will keep her NPO We will try water thru gastric feeding tube and see how this progresses. If she tolerates this well- than continue w/ tube feeds only until we can eval her surgical site 1 hour spent in counseltation tonight. History of Present Illness Narrative: From H&P: This patient did receive radiation for right vocal cord carcinoma in 2001, recently experiencing some voice changes and some swallowing difficulties. She is also lost approximately 20 pounds over the past 6 months. About one ago she underwent evaluation for swallowing and was noted to be at risk for aspiration. She was recently evaluated with endoscopy with Dr. Bañuelos and was noted to have a lesion in the right piriformis sinus. She has had no pain in her neck she went underwent next a CAT scan and apparently there was concern for a lesion on the undersurface of her right cord.. MRI showed prevertebral muscular abutment no evidence of invasion. 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 She had a PEG placed at the time of the surgery. From Today: pmhX: hld/cvax2 PE in 2017, prior vocal chord carcinoma adn treated w/ XRT in . She is a former smoker. She underwent a phyngolaryngectomy and thyroidectomy in in 2018. It was complicated by focal abcess and fluid collection in the neck requiring ABx and drainage. She [place] in [place]09[place] [facility] hosp [place] [facility] [place]25[place] 11/27. She was in rehab for 24 hrs and than she had problems w/ bleeding trach and had to be rehospitalized at [facility]. She was than transferred to a swing bed at [facility]. Than she developed a pneumonia and was admitted to the ICU. She was supposed to start XRT on Dec. Today pt c/o increasing abdominal distention and had an episode of vomiting. The PEG was placed at the time of surgery. She did not have pre or post surgical XRT. She has not started chemo. She has been doing tube feeds and taking po's. She denies coughing and choking w/ swallowing. This evening she is feeling better. The distention has gone down and she had a BM. She denies any pain. The tube site is c/d/i- no r/d/. She denies being hungry. He son related there was problems w/ the healing of the esophagus and she was suppose to have a swallow study prior to her orig d/c from [facility]. This did not happen. She had a bedside eval by speech therapy at [facility] and said there was no problems. She developed pneumonia Nov 25 and was hosp at [facility]. She has a R sided pneumonia now as well. Nursing at [facility] reports that she seems to swallow well w/ out coughing or choking. I did d/w case in detail w/ dr. Castro I did extensively review her chart from [facility]. Consults Consult date: 12/06/19 Requesting physician: Bhavani Castro Review of Systems All systems reviewed & are unremarkable except as noted in HPI and below [facility] Medical History Benign paroxysmal vertigo Benign paroxysmal vertigo, unspecified ear (Resolved) Cataract (Resolved) O.U 02/24/14; Dr. Martin left extraction 03/10/14; Dr. 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 L hip-mild acetabular spurring 2014 - severe arthritis at facet joints Lumbago Oral ulcer (Resolved) 12/07/16 Peripheral edema (Chronic 07/31/16) Peripheral venous insufficiency (Chronic 12/03/08) edema Polyp of colon (Resolved) colonoscopy of 01/09/11-multiple polyps at multiple locations. 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 Very hard to regu late and cannot afford alternatives. Understands the risks. Repeat again - PE. back on anticoagualtion Seizure (Resolved) ? of seizures; on medication for time; now off w/no change Stenosis of carotid artery (Chronic 01/20/16) carotid us 01/18 TMJ (temporomandibular joint disorder) (Resolved) right Transient ischemic attack (Resolved 08/04/03) POS MRI R TEMPORAL LOBE. NEG ECHO 2000 Urinary incontinence (Chronic 11/10/14) Vaginal lesion (Resolved) 03/22/16 Venous insufficiency Visual disturbance (Resolved) etiology unclear per -exam of 03/14/11 Vitamin D deficiency Vitamin D deficiency (Chronic 03/11/09) Vulvovaginitis (Resolved) Surgical History Extraction of cataract 02/24/14; LEFT EYE 03/10/14; RIGHT EYE History of bilateral tubal ligation (Resolved) Ligation of fallopian tube Family History Mother , 85 Vaginal cancer Father , 74 Heart disease COPD (chronic obstructive pulmonary disease) Sister , 63 Heart disease ASHD/CHF Lung cancer Maternal Grandmother Heart disease Paternal Grandmother Diabetes Son , 40 Substance abuse Heart disease Sister No problems noted. Sister No problems noted. Son RA (rheumatoid arthritis) Daughter No problems noted. Daughter No problems noted. Paternal Grandfather , 80 No problems noted. Social History Smoking/Tobacco Use Status: Former Tobacco Use Quit Date: 06/05/01 Second Hand Exposure: Yes Alcohol Intake: former Drug use: Never Substance use type: does not use Caregiver/Support person: No Household members: none Housing: house Do you need help understanding health information?: Rarely Pets and animals: No Sexually active: No Current gender identity: female What is your relationship status?: How often do you talk on the phone with friends or family?: decline to answer How often do you get together with friends or relatives?: once per week How often do you attend roman catholic or yazdanism services?: decline to answer Do you belong to any clubs or organized social groups?: no Panel score (0-1 are the most socially isolated patients): 0 What type of physical activity do you participate in: decline to answer Duration: decline to answer Frequency: decline to answer Bethany/Alevism: Gnosticist Special bethany needs: No Seatbelt use: always Helmet use: No Drive intox or ride w/intox security patrol driver: No Do you feel safe at home: Yes Do you feel safe in your relationship?: Yes Exam Const General: cooperative, healthy appearing, comfortable, no acute distress, well developed and well groomed Nutritional Appearance: average body habitus and well nourished Orientation: alert, awake and oriented x3 HENMT Head: normal to inspection, normocephalic and atraumatic Ears: hearing grossly normal bilaterally and external ears normal General nose exam: external nose normal Face and sinus: normal facial exam and sinuses nontender Mouth: oral mucosae normal, lip normal, tongue normal and moist mucous membranes Teeth and gingiva: edentulous Throat: other Eyes General: appearance normal, both eyes and all related structures Conjunctivae: conjunctivae normal Sclera: sclerae normal Pupils: PERRL Neck Neck: anterior neck swelling and tender Other: trach in place. no bleeding. flap is pink and healthy. still swelling. no drainage or palpable fluid collection. Chest Chest: normal inspection of the chest Resp Effort & Inspection: normal respiratory effort, no cough, no nasal flaring, not tachypneic and no use of accessory muscles Auscultation: clear to auscultation bilaterally, no rales, no rhonchi and no wheezes Cardio Jugular venous pressure: no JVD Rate: regular rate Rhythm: regular rhythm GI Inspection: normal to inspection, no edema and non-distended Palpation: soft, no masses, nontender and No ascites Auscultation: no hypoactive bowel sounds Other: tube site c/d/i. no R/R/G. no peritonitis. Skin General skin exam: no rashes or lesions noted Trauma: no lacerations or abrasions Other: no breakdown per RN's. Neuro General: alert, oriented x3, oriented, gait normal, moves all extremities, no focal motor deficits and CN's II-XI intact bilaterally Cognition: normal cognition Speech: speech normal Gait: normal gait Motor: muscle tone normal throughout Psych Appearance: grossly normal and well kempt Mental Status: mental status grossly normal Affect: normal affect Results Last Vital Signs Temp 36.4 C L 12/06/19 19:45 Pulse 87 12/06/19 19:45 Resp 16 12/06/19 19:45 BP 137/45 L 12/06/19 19:45 Pulse Ox 91 L 12/06/19 19:45 Labs Result diagrams: 12/06/19 06:15 12/06/19 06:15 Labs: Laboratory Results - last 24 hr 12/06/19 12/06/19 06:15 06:15 WBC 10.89 H RBC 3.41 L Hgb 9.3 L Hct 30.9 L MCV 90.6 MCH 27.3 MCHC 30.1 L RDW 15.7 H Plt Count 459 H MPV 9.6 Immature Gran % 0.2 Neutrophils % 79.0 Lymphocytes % 10.7 Monocytes % 8.6 Eosinophils % 1.2 Basophils % 0.3 Absolute Neutrophils 8.60 H Absolute Lymphocytes 1.17 L Absolute Monocytes 0.94 H Absolute Eosinophils 0.13 Absolute Basophils 0.03 Sodium 137 Potassium 3.9 Chloride 100 Carbon Dioxide 26.9 Anion Gap 10.1 BUN 17 Creatinine 0.79 Estimated GFR/1.73 m2 >= 60.00 Glucose 151 H Calcium 8.8
[2019-12-07] VITALS (10 sets, daily range): BP systolic 121–142; BP diastolic 44–78; PULSE 84–97; RESP 18–24; TEMP 34–37.3; O2SAT 88–95
[2019-12-07] MEDS: CEFEPIME 1 GM in Normal Saline 50 ML IVPB ×3 (02:52→18:36)
[2019-12-07 06:50] LABS: Anion Gap 9.9 mmol/L (3-11); BUN 16 mg/dL (7-18); CO2 27.1 mmol/L (21.0-32.0); CREATININE 0.71 mg/dL (0.55-1.02); Calcium 8.4 mg/dL (8.5-10.1); Chloride 101 mmol/L (98-107); Glucose 141 mg/dL (74-106); Magnesium 1.9 mg/dL (1.8-2.4); Sodium 138 mmol/L (136-145)
[2019-12-07 07:01] LABS: HCT 30.8 % (36.0-46.0); HGB 9.3 g/dL (12.0-15.5); Mean Corp. HGB Concentration 30.2 g/dL (32.0-36.0); Mean Corpuscular Hemoglobin 27.2 pg (27.0-33.0); Mean Corpuscular Volume 90.1 fL (80-95); Mean Platelet Volume 9.3 fL (8.0-11.0); Platelet Count 447 x1000/uL (130-400); RBC 3.42 m/cumm (4.00-5.20); RBC Distribution Width 15.7 % (11.7-14.6); White Blood Cell Count 8.37 k/cumm (4.4-10.8)
--- NOTE | 2019-12-07 07:29 | NUR.NOTE ---
0700-patient just got back to chair after sitting on commode and bathed self. pt sounded very congested and started to cough up a huge amount of sputum. patient's gown needed changing. pt sounded clearer afterwards.
--- NOTE | 2019-12-07 07:30 | NUR.NOTE ---
0000-pt and nurse did trach care together. pt removed the inner cannula. nurse cleaned it with sterile technique and dried cannula. pt then put cannula back in but became frustrated when she could not get it to click and nurse had to do it for her. a small mirror may help pt to do this.
[2019-12-07 07:34] LABS: Absolute Neutrophil Count 6.28 k/cumm (1.2-6.7)
[2019-12-07 07:35] LABS: Absolute Basophil Count 0.08 k/cumm (0.0-0.2); Absolute Eosinophil Count 0.42 k/cumm (0.0-0.7); Absolute Lymphocyte Count 1.17 k/cumm (1.2-3.4); Absolute Monocyte Count 0.42 k/cumm (0.11-0.7); Atypical Lymphocytes % 1; Diff Comment Manual Differential
[2019-12-07 07:36] LABS: Anisocytosis 1+
[2019-12-07] MEDS: guaiFENesin 200 MG/10 ML CUP 400 MG PO ×2 (08:18→20:01)
[2019-12-07] MEDS: Nystatin 500000 UNITS/5 ML SUSP 5ML CUP PO ×3 (08:18→20:01)
[2019-12-07] MEDS: Potassium Chloride Liquid 20 MEQ PKT PO ×2 (08:19→20:01)
[2019-12-07] MEDS: Metoprolol CR 25 MG TABCR 12.5 MG PO ×2 (08:19→20:01)
[2019-12-07] MEDS: Apixaban 5 MG TAB PO ×2 (08:19→20:01)
[2019-12-07] MEDS: Furosemide 40 MG TAB PO (08:19)
--- NOTE | 2019-12-07 08:20 | W.PM.PROGNOT ---
Date of Service Date of service: 12/07/19 Time of Service: 10:20 Assessment and Plan Assessment and plan (1) Pneumonia of right lower lobe due to infectious organism: Status: Acute Assessment and plan: Continue empiric cefepime. CXR with slight improvement in disease. There is a suspicion that this is an aspiration pneumonia, in which case we must rule out a tracheoesophageal fistula. For Barium Swallow tomorrow. (2) UTI (urinary tract infection): Status: Acute Assessment and plan: Due to Klebsiella pneumonia, present on admission. Continue cefepime. (3) Adynamic ileus: Status: Acute Assessment and plan: Seems to be clinically improving with downgrading of a diet. Could be due to PNA/UTI. Repeating abdominal XR now. Based on results, would consider advancing diet. Appreciate surgical consult. (4) Anxiety: Status: Chronic Assessment and plan: Seems to be controlled with a more measured approach to suctioning. 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 Obtain a barium swallow to evaluate for a possible tracheoesophageal fistula. For now, NPO - water through PEG only. (6) Tracheostomy care: Status: Acute Assessment and plan: Suctioning only prn, per PT. (7) Discharge planning issues: Status: Acute Assessment and plan: Full code. Disposition: home with services when ready unless there is a TE fistula - would potentially require transfer at that point. (8) DVT prophylaxis: Status: Acute Assessment and plan: On therapeutic apixaban. Subjective Subjective Interval history since last seen: Ms Anderson states she is feeling better. She denies dizziness, chest pain, shortness of breath, abdominal pain. +BM's. Able to change her own inner cannula. No bleeding through trach. Suctioned this morning. Sats low to mid-90's on room air with humidity. BM this am - heme -. NPO, getting water through tube. About to have her repeat XR of the abdomen. Exam Narrative Exam Narrative: General: Very pleasant elderly female, A&Ox3, sitting comfortably in a chair, cheeks pink HEENT: EOMI, MMM, Trach with deviation to the left, patent Heart: RRR, no m/r/g Lungs: CTAB with the exception of crackles at R base Abdomen: soft, nontender, nondistended, + PEG, + hypoactive bowel sounds Extremities: 1+ BLE edema, chronic venous stasis dermatitis Objective Objective Clinical Data: Abnormal lab results 12/07/19 12/07/19 Range/Units 06:20 06:20 RBC 3.42 L (4.00-5.20) m/cumm Hgb 9.3 L (12.0-15.5) g/dL Hct 30.8 L (36.0-46.0) % MCHC 30.2 L (32.0-36.0) g/dL RDW 15.7 H (11.7-14.6) % Plt Count 447 H (130-400) x1000/uL Absolute Lymphocytes 1.17 L (1.2-3.4) k/cumm Glucose 141 H (74-106) mg/dL Calcium 8.4 L (8.5-10.1) mg/dL Vital Signs Temperature 36.2 C L 12/07/19 00:00 Temperature Source Tympanic 12/07/19 00:00 Pulse 84 12/07/19 00:00 Pulse Rhythm Regular 12/07/19 07:46 Respiratory Rate 24 12/07/19 00:00 Respiratory Effort 12/07/19 07:46 Respiratory Depth Normal 12/07/19 07:46 Respiratory Pattern Normal 12/07/19 07:46 Blood Pressure 131/44 L 12/07/19 00:00 Blood Pressure Mean 73 12/05/19 16:10 Blood Pressure Position Sitting 12/05/19 16:10 Pulse Oximetry 95 12/07/19 00:00 Oxygen Delivery Method Room Air 12/07/19 00:00 Oxygen Flow Rate 0 12/07/19 00:00 Fraction of Inspired Oxygen (FIO2) 21 12/07/19 00:00 Pain Level 0 12/07/19 00:00 Comment vitals not recording-just noted todays data is not coming thru-will ctm 12/06/19 08:30 Intake & Output 12/06/19 12/06/19 12/07/19 11:59 23:59 11:59 Intake Total 390 / 757 367 / 757 Output Total 615 / 1180 565 / 1180 Balance -225 / -423 -198 / -423 Weight 88.6 kg Intake: IV 50 / 160 110 / 160 Oral 340 / 340 Intake, Tube Feeding Amount 257 / 257 Output: Gastric Drainage 105 / 105 Lt Upper Quadrant 105 / 105 Urine 510 / 960 450 / 960 Output, Residual 115 / 115 Other: Urine Color Dark Gabrielle Yellow Urine Appearance Cloudy Clear Cloudy Urine Odor Strong Comment Mixed with stool in diaper by wt. Stool Occult Blood Negative Negative Stool Size Moderate Small Moderate Stool Characteristics Soft Soft Soft Brown Formed Brown Voiding Methods Bedside Commode Bedside Commode Diaper Diaper Laboratory Results WBC 8.37 k/cumm (4.4-10.8) 12/07/19 06:20 RBC 3.42 m/cumm (4.00-5.20) L 12/07/19 06:20 Hgb 9.3 g/dL (12.0-15.5) L 12/07/19 06:20 Hct 30.8 % (36.0-46.0) L 12/07/19 06:20 MCV 90.1 fL (80-95) 12/07/19 06:20 MCH 27.2 pg (27.0-33.0) 12/07/19 06:20 MCHC 30.2 g/dL (32.0-36.0) L 12/07/19 06:20 RDW 15.7 % (11.7-14.6) H 12/07/19 06:20 Plt Count 447 x1000/uL (130-400) H 12/07/19 06:20 MPV 9.3 fL (8.0-11.0) 12/07/19 06:20 Immature Gran % 0.0 % 12/07/19 06:20 Neutrophils % 74.0 12/07/19 06:20 Band Neutrophils % 1.0 % 12/07/19 06:20 Lymphocytes % 13.0 12/07/19 06:20 Atypical Lymphs % 1 12/07/19 06:20 Monocytes % 5.0 12/07/19 06:20 Eosinophils % 5.0 12/07/19 06:20 Basophils % 1.0 12/07/19 06:20 Absolute Neutrophils 6.28 k/cumm (1.2-6.7) 12/07/19 06:20 Absolute Lymphocytes 1.17 k/cumm (1.2-3.4) L 12/07/19 06:20 Absolute Monocytes 0.42 k/cumm (0.11-0.7) 12/07/19 06:20 Absolute Eosinophils 0.42 k/cumm (0.0-0.7) 12/07/19 06:20 Absolute Basophils 0.08 k/cumm (0.0-0.2) 12/07/19 06:20 Differential Comment Manual differential 12/07/19 06:20 RBC Morphology See below 12/07/19 06:20 Anisocytosis 1+ 12/07/19 06:20 Sodium 138 mmol/L (136-145) 12/07/19 06:20 Potassium 4.0 mmol/L (3.5-5.1) 12/07/19 06:20 Chloride 101 mmol/L (98-107) 12/07/19 06:20 Carbon Dioxide 27.1 mmol/L (21.0-32.0) 12/07/19 06:20 Anion Gap 9.9 mmol/L (3-11) 12/07/19 06:20 BUN 16 mg/dL (7-18) 12/07/19 06:20 Creatinine 0.71 mg/dL (0.55-1.02) 12/07/19 06:20 Estimated GFR/1.73 m2 >= 60.00 (mL/min/1.73m2) 12/07/19 06:20 Glucose 141 mg/dL (74-106) H 12/07/19 06:20 Calcium 8.4 mg/dL (8.5-10.1) L 12/07/19 06:20 Magnesium 1.9 mg/dL (1.8-2.4) 12/07/19 06:20
[2019-12-07] MEDS: Insulin Aspart 300 UNITS/3 ML PEN SC ×2 (09:04→14:37)
[2019-12-07] MEDS: Normal Saline 500 ML 10 ML IV (09:49)
--- NOTE | 2019-12-07 10:26 | DI.RAD_ITS ---
EXAM: XR ABDOMEN FLAT PLATE INDICATION: follow up ileus. COMPARISON: XR ABDOMEN FLAT PLATE from 12/06/2019 TECHNIQUE: 2D digital imaging was performed. FINDINGS: The lung bases are clear. The patient has a gastrostomy tube in the left abdomen. The bowel gas pat tern is nonspecific without evidence of obstruction. Degenerative changes are seen in the spine. IMPRESSION: No evidence of an acute abdomen.
--- NOTE | 2019-12-07 11:05 | DI.VRAD_ITS ---
PROCEDURE INFORMATION: Exam: XR Abdomen, 1 View Exam date and time: 12/07/2019 10:28 AM Age: 79 years old Clinical indication: Condition or disease; Intestinal condition; Other: Follow up ilieus TECHNIQUE: Imaging protocol: XR of the abdomen. Views: Frontal supine view of the abdomen. 1 View. COMPARISON: CR XR ABDOMEN FLAT PLATE 12/06/2019 1:06 PM FINDINGS: Tubes, catheters and devices: Gastrostomy tube terminates over the left abdomen Gastrointestinal tract: Normal. No bowel dilation. Bones/joints: Dextroscoliosis of the thoracolumbar spine Degenerative changes in the lumbar spine and both hips IMPRESSION: Gastrostomy tube terminates over the left abdomen Dictated and Authenticated by: Tatianna Peña MD. Ordering:DYAN Beckham MD
--- NOTE | 2019-12-07 13:17 | PT.INTREAT ---
Date of service: 12/07/19 Time of Service: 13:00 PT Notes Visit Reasons: RIGHT LOWER LOBE PNEUMONIA/TRACHEOSTOMY CARE Inpatient Physical Therapy Treatment Note [facility] Date: 12/07/19 PRECAUTIONS:Fall standard and tracheotomy tube SUBJECTIVE: Stated she would go walking if able to wear O2 supplement. OBJECTIVE: PAIN: No complaints of pain BED MOBILITY/TRANSFERS Up in chair with nursing staff Sit-stand: SBA Stand-sit: SBA GAIT Assistive Device: FWW Weight bearing: FWB Assist: CGA Distance: 80ft and 50 ft, did require one seated break and O2 supplement was increased from 2L to 4L VITALS: Post ambulation and use of commode for BM O2 reading was noted at 90%. ASSESSMENT: Tolerated ambulation fair. Did get SOB during ambulation requiring brief seated break and O2 supplement was increased to 4L by nursing staff. PLAN: Continue to advance activity as able to tolerate, as per current POC. Focus on improving functional mobility. TREATMENT CODE/TIME: 13:00 to 13:20 (20'), [id number]
--- NOTE | 2019-12-07 15:02 | CMPROGNOTE_ITS ---
- If Service Date Differs Date of service: 12/07/19 Time of Service: 15:02 Care Management Progress Note S/O: Lisa continues to meet ICU level of care. She is sitting in a chair when CM comes to meet with her. She smiles and answers questions by shaking her head yes or no but does not speak. CM will continue to follow. A: Lisa is a 79 year old female admitted to [facility] on 12/05/2019 for right lower lobe pneumonia. P: Lisa will be discharged home when medically cleared by provider. CM will coordinate team meeting prior to discharge. Lisa will be transported home by family via private vehicle when ready. CM will continue to follow.
--- NOTE | 2019-12-07 16:13 | W.PM.PROGNOT ---
Date of Service Date of service: 12/07/19 Time of Service: 12:30 Assessment and Plan Assessment and plan (1) Adynamic ileus: Status: Acute Assessment and plan: This is an ileus rather than from mechanical obstruction. She is not really ambulatory. I did have the nurses try to give her some tube feed and some water this afternoon through her feeding tube. Now this evening she feels more distended and more bloated. She does not have pain. She does not feel like she is going to throw up. We will hold the any further feedings or water for the next 2 hours and see how she feels around 6:00. We do not have to check gastric residuals. If she feels better then we can try giving her the rest of the current bottle and feed her very very slowly. I do not want to do anything by mouth until we have the swallow study done. We will need to have her back up to IVs as she is not really taking in enough fluid to sustain herself. We will continue to treat her pneumonia with antibiotics and pulmonary toilet and updrafts. She requires 4 L to walk she is very short of breath. She is also very deconditioned. She is still on blood thinners for the remote history of blood clot. She was able to clean and do trach care herself today. There is no signs of any significant bleeding. 30 minutes were spent with the patient today. Greater than 50% of the time was spent in counseling and working with the nurses (2) Nausea and vomiting: Status: Acute (3) Pneumonia of right lower lobe due to infectious organism: Status: Acute Assessment and plan: treatment per hosp. pt is short of breathe/week, she can only walk 100ft on 4L (4) Anxiety: Status: Chronic (5) Tracheostomy care: Status: Acute (6) COPD (chronic obstructive pulmonary disease): Status: Chronic (7) Pharyngoesophageal dysphagia: Status: Acute Assessment and plan: plan barium swallow/esophagram in am. Need to have this done prior to any more oral eating. Will also have speach see her. (8) Pulmonary embolus: Status: Chronic Assessment and plan: on elequis (9) Tracheostomy hemorrhage: Status: Acute Assessment and plan: pt has had problems w/ bleeding from trach. apparently she had poor suctioning technique. no granulation tissue. no bleeding at this time on elequis for PE Subjective Subjective Interval history since last seen: Patient seen and examined today. She has had 2 bowel movements this morning. No blood. She had neck pain to eat orally. She did get pills and medications with some water this morning. She denies any abdominal pain. There was no blood in her stools. She has not felt nauseated or felt like she needs to throw up. No fever or chills. Is not coughing. She still gets very short of breath. She had to have 4 L of oxygen on walk 75 feet. She can barely walk because she is short of breath condition. She denied any abdominal pain. She had good bowel sounds. I did review the x-ray today. It was read as normal but there could be a few small dilated loops of small intestine. But she does have air all the way through the colon although not seen in the rectum. But that just may be timing. Exam GI Inspection: non-distended and obesity Palpation: soft, nontender and No ascites Auscultation: hypoactive bowel sounds Other: G-tube site is clean dry and intact. There is no distention. Her abdomen is soft and nontender. Her bowel sounds are not overly active but they are present. Objective Objective Clinical Data: Abnormal lab results 12/07/19 12/07/19 Range/Units 06:20 06:20 RBC 3.42 L (4.00-5.20) m/cumm Hgb 9.3 L (12.0-15.5) g/dL Hct 30.8 L (36.0-46.0) % MCHC 30.2 L (32.0-36.0) g/dL RDW 15.7 H (11.7-14.6) % Plt Count 447 H (130-400) x1000/uL Absolute Lymphocytes 1.17 L (1.2-3.4) k/cumm Glucose 141 H (74-106) mg/dL Calcium 8.4 L (8.5-10.1) mg/dL Vital Signs Temperature 36.2 C L 12/07/19 00:00 Temperature Source Tympanic 12/07/19 00:00 Pulse 86 12/07/19 08:46 Pulse Rhythm Regular 12/07/19 07:46 Respiratory Rate 24 12/07/19 00:00 Respiratory Effort 12/07/19 07:46 Respiratory Depth Normal 12/07/19 07:46 Respiratory Pattern Normal 12/07/19 07:46 Blood Pressure 133/58 L 12/07/19 08:46 Blood Pressure Mean 77 12/07/19 08:46 Blood Pressure Position Sitting 12/05/19 16:10 Pulse Oximetry 90 L 12/07/19 08:46 Oxygen Delivery Method Room Air 12/07/19 00:00 Oxygen Flow Rate 0 12/07/19 00:00 Fraction of Inspired Oxygen (FIO2) 21 12/07/19 00:00 Pain Level 0 12/07/19 00:00 Comment vitals not recording-just noted todays data is not coming thru-will ctm 12/06/19 08:30 Intake & Output 12/06/19 12/07/19 12/07/19 23:59 11:59 23:59 Intake Total 367 / 757 100 / 200 100 / 200 Output Total 565 / 1180 510 / 855 345 / 855 Balance -198 / -423 -410 / -655 -245 / -655 Intake: IV 110 / 160 100 / 100 Intake, Tube Feeding Amount 257 / 257 100 / 100 Output: Urine 450 / 960 465 / 810 345 / 810 Output, Residual 115 / 115 45 / 45 Other: Urine Color Yellow Yellow Yellow Urine Appearance Clear Clear Clear Cloudy Urine Odor Normal Normal Comment in diaper by wt. Voided in commode 225 cc and was incontinent in attends for 240cc at this time. Stool mixed with urine. Patient voided 125 cc on bedside commode and incontinent of 210 cc in her Attends. Stool Occult Blood Negative Negative Stool Size Small Small Stool Characteristics Soft Soft Formed Voiding Methods Bedside Commode Bedside Commode Bedside Commode Diaper Diaper Incontinent Laboratory Results WBC 8.37 k/cumm (4.4-10.8) 12/07/19 06:20 RBC 3.42 m/cumm (4.00-5.20) L 12/07/19 06:20 Hgb 9.3 g/dL (12.0-15.5) L 12/07/19 06:20 Hct 30.8 % (36.0-46.0) L 12/07/19 06:20 MCV 90.1 fL (80-95) 12/07/19 06:20 MCH 27.2 pg (27.0-33.0) 12/07/19 06:20 MCHC 30.2 g/dL (32.0-36.0) L 12/07/19 06:20 RDW 15.7 % (11.7-14.6) H 12/07/19 06:20 Plt Count 447 x1000/uL (130-400) H 12/07/19 06:20 MPV 9.3 fL (8.0-11.0) 12/07/19 06:20 Immature Gran % 0.0 % 12/07/19 06:20 Neutrophils % 74.0 12/07/19 06:20 Band Neutrophils % 1.0 % 12/07/19 06:20 Lymphocytes % 13.0 12/07/19 06:20 Atypical Lymphs % 1 12/07/19 06:20 Monocytes % 5.0 12/07/19 06:20 Eosinophils % 5.0 12/07/19 06:20 Basophils % 1.0 12/07/19 06:20 Absolute Neutrophils 6.28 k/cumm (1.2-6.7) 12/07/19 06:20 Absolute Lymphocytes 1.17 k/cumm (1.2-3.4) L 12/07/19 06:20 Absolute Monocytes 0.42 k/cumm (0.11-0.7) 12/07/19 06:20 Absolute Eosinophils 0.42 k/cumm (0.0-0.7) 12/07/19 06:20 Absolute Basophils 0.08 k/cumm (0.0-0.2) 12/07/19 06:20 Differential Comment Manual differential 12/07/19 06:20 RBC Morphology See below 12/07/19 06:20 Anisocytosis 1+ 12/07/19 06:20 Sodium 138 mmol/L (136-145) 12/07/19 06:20 Potassium 4.0 mmol/L (3.5-5.1) 12/07/19 06:20 Chloride 101 mmol/L (98-107) 12/07/19 06:20 Carbon Dioxide 27.1 mmol/L (21.0-32.0) 12/07/19 06:20 Anion Gap 9.9 mmol/L (3-11) 12/07/19 06:20 BUN 16 mg/dL (7-18) 12/07/19 06:20 Creatinine 0.71 mg/dL (0.55-1.02) 12/07/19 06:20 Estimated GFR/1.73 m2 >= 60.00 (mL/min/1.73m2) 12/07/19 06:20 Glucose 141 mg/dL (74-106) H 12/07/19 06:20 Calcium 8.4 mg/dL (8.5-10.1) L 12/07/19 06:20 Magnesium 1.9 mg/dL (1.8-2.4) 12/07/19 06:20
[2019-12-07] MEDS: Normal Saline 1,000 ML 75 ML IV (16:37)
--- NOTE | 2019-12-07 18:45 | NUR.NOTE ---
pt admitted from ICU to [facility] at 1810. Oriented to room and plan of care. Nursing Note:
[2019-12-08] VITALS (9 sets, daily range): BP systolic 125–149; BP diastolic 66–75; PULSE 76–96; RESP 16–22; TEMP 34–37; O2SAT 92–95
[2019-12-08] MEDS: CEFEPIME 1 GM in Normal Saline 50 ML IVPB ×3 (02:05→18:03)
[2019-12-08 07:04] LABS: Abs Immature Grans 0.02 k/cumm (0.0-0.09); HCT 27.8 % (36.0-46.0); HGB 8.5 g/dL (12.0-15.5); Mean Corp. HGB Concentration 30.6 g/dL (32.0-36.0); Mean Corpuscular Hemoglobin 27.7 pg (27.0-33.0); Mean Corpuscular Volume 90.6 fL (80-95); Mean Platelet Volume 9.3 fL (8.0-11.0); RBC 3.07 m/cumm (4.00-5.20); RBC Distribution Width 15.7 % (11.7-14.6); White Blood Cell Count 7.76 k/cumm (4.4-10.8)
[2019-12-08 07:13] LABS: Anion Gap 8.9 mmol/L (3-11); BUN 13 mg/dL (7-18); CO2 25.1 mmol/L (21.0-32.0); CREATININE 0.64 mg/dL (0.55-1.02); Calcium 8.3 mg/dL (8.5-10.1); Chloride 110 mmol/L (98-107); Glucose 119 mg/dL (74-106); Magnesium 1.9 mg/dL (1.8-2.4); Potassium 4.3 mmol/L (3.5-5.1); Sodium 144 mmol/L (136-145)
[2019-12-08] MEDS: Normal Saline 1,000 ML 75 ML IV (07:19)
[2019-12-08 07:48] LABS: Absolute Eosinophil Count 0.23 k/cumm (0.0-0.7); Absolute Monocyte Count 0.54 k/cumm (0.11-0.7); Absolute Neutrophil Count 5.59 k/cumm (1.2-6.7); Atypical Lymphocytes % 3; Platelet Count 433 x1000/uL (130-400)
[2019-12-08 07:49] LABS: Diff Comment Manual Differential; Hypochromasia 2+
--- NOTE | 2019-12-08 08:40 | NT_ITS ---
Date of service: 12/08/19 Time of Service: 08:40 Occupational Therapy Notes 12/08/19 OT attempted to see pt who is out of room at this time for testing. OT will resume services with pt tomorrow. Licha Richardson OTR/[facility]
--- NOTE | 2019-12-08 09:15 | DI.RAD_ITS ---
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 CONTRAST MATERIAL: Oral water soluble contrast was administered followed by oral barium contrast. COMPARISON: XR PORTABLE CHEST AP from 12/06/2019 FINDINGS: Initial plain film of the chest reveals an infiltrate in the right lower lobe. The heart size is wit hin normal limits as is the pulmonary vasculature. There is a tracheostomy tube in stable position. Numerous surgical clips are seen in the neck. Esophagus: The esophagus is patent with no evidence for erosions, fold thickening, strictures, or ma sses. There was no aspiration during the examination. No contrast is identified in the lungs. Terti bhupinder contractions were noted. There is no hiatal hernia or gastroesophageal reflux. IMPRESSION: 1. No evidence of aspiration or tracheal esophageal fistula. 2. Tertiary contractions. 3. Postsurgical changes in the neck with a tracheostomy tube in place. 4. Right lower lobe infiltrate suspicious for pneumonia.
[2019-12-08] MEDS: Barium Sulfate 60% W/V 355 ML BTL PO (09:16)
[2019-12-08] MEDS: Metoprolol CR 25 MG TABCR 12.5 MG PO ×2 (09:26→20:23)
[2019-12-08] MEDS: Apixaban 5 MG TAB PO ×2 (09:26→20:23)
[2019-12-08] MEDS: guaiFENesin 200 MG/10 ML CUP 400 MG PO ×2 (09:27→20:23)
[2019-12-08] MEDS: Nystatin 500000 UNITS/5 ML SUSP 5ML CUP PO ×4 (09:27→20:23)
[2019-12-08] MEDS: Potassium Chloride Liquid 20 MEQ PKT PO ×2 (09:27→20:24)
[2019-12-08] MEDS: Omnipaque 350 MG/ML 100 ML BTL IJ ×2 (09:29→09:30)
[2019-12-08] MEDS: Omnipaque 350 MG/ML 50 ML BTL IJ (09:30)
--- NOTE | 2019-12-08 10:18 | OTTR_ITS ---
Date of service: 12/08/19 Time of Service: 09:55 Occupational Therapy Notes Occupational Therapy Inpatient Treatment Note Date: 12/08/19 PRECAUTIONS: Fall, Standard SUBJECTIVE: Pt was sitting in chair when OT arrived. She would like to get washed up. OBJECTIVE: PAIN: no c/o pain BATHING: Sitting in chair with max (A) set up Upper Body: (I) face, (B) UE and abdomen with vc for under breasts and under abdomen. Lower Body: (I) (B) LE with good support to trach when bending. DRESSING: Sitting in chair Upper Extremity: Min (A) for [facility] gown Lower Extremity: Mod (A) don and doffing (B) socks PLAN: Pt was able to demonstrate increased (I) in sitting position for bathing routine today. She requires some (A) with set up and vc however pt tolerated this well. OT will continue to progress pt towards goals established at initial evaluation. TREATMENT CODES/TIME: 76947x1, 25 minutes (09:50) SPENCER Maxwell/[facility]
--- NOTE | 2019-12-08 12:36 | PTTR_ITS ---
Date of service: 12/08/19 Time of Service: 10:57 PT Notes Visit Reasons: RIGHT LOWER LOBE PNEUMONIA/TRACHEOSTOMY CARE Inpatient Physical Therapy Treatment Note [facility] Date: 12/08/2019 PRECAUTIONS: Standard. Fall. Activity as tolerated. SUBJECTIVE: Pt?s son reports that she is feeling better today. Her son reports that she was not on oxygen previously at home and was independent, as well as still able to drive. Notes that she was beginning to notice some difficulty breathing and would require rest breaks if she was doing anything for an extended period of time. OBJECTIVE: tracheostomy with humidification. IV line in LUE. PAIN: 0/10 BED MOBILITY/TRANSFERS Sit-stand: Supervision Stand-sit: Supervision Bed-Chair: Supervision Chair-bed: Supervision VITALS: SpO2 96% on room air at rest GAIT: Pt was able to ambulate 60 feet + 80 feet, full weightbearing, using a front wheeled walker. SBA provided by PT with wheelchair follow by PT student. SpO2 was monitored by the respiratory therapist while ambulating and O2 ranged from 2-6 L/min via the tracheostomy cannula. At about 60 feet of ambulation the pt desaturated to 84% and was asked to take a seated rest break. RT believes that the finger monitor might have moved while patient was grasping the handle of the walker which may have resulted to a decrease in accuracy of measurement. THEREX: Seated marches B x 10 LAQ B x 10 Ankle pumps B x 20 ASSESSMENT: Will coordinate with RT about afternoon walk to ad ensure better monitoring of oxygen saturation using ear probe. Pt was able to ambulate a greater distance during today?s morning treatment session, as compared to previous sessions where she had only been able to ambulate 72 feet. She did require one seated rest break to monitor SpO2, as she had desaturated to 84%, however, after asking the pt to relax her hand on the walker her O2 remained above 88% for the remainder of the walk. The pt was able to tolerate seated lowe r extremity exercises following the walk and her SpO2 ranged from 91-94%. She would continue to benefit from skilled physical therapy at this time. PLAN: Continue with established POC. TREATMENT CODE/TIME: 93813 x 23 minutes beginning at 10:57 A.M. Polo Azul SPT Doctor of Physical Therapy Student [facility] Supervision provided by Valeria Reyes PT, DPT, CLT [facility], [place]
--- NOTE | 2019-12-08 13:41 | W.PM.PROGNOT ---
Date of Service Date of service: 12/08/19 Time of Service: 13:46 Assessment and Plan Assessment and plan (1) Pneumonia of right lower lobe due to infectious organism: Status: Acute Assessment and plan: Still seen on barium swallow today. On cefepime and clinically improving - would not change abx at this time. Check procalcitonin tomorrow - if negative, consider d/c abx. Barium swallow ruled out a tracheoesophageal fistula - aspiration pneumonia virtually impossible. (2) UTI (urinary tract infection): Status: Acute Assessment and plan: Due to Klebsiella pneumonia, present on admission. Continue cefepime. (3) Adynamic ileus: Status: Resolved Assessment and plan: Clinically resolved. Will resume diet, with surgery's permission. Will start a low dose of reglan AC/HS. (4) Anxiety: Status: Chronic Assessment and plan: Seems to be controlled with a more measured approach to suctioning. 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 No evidence of tracheoesophageal fistula on barium swallow. (6) Tracheostomy care: Status: Acute Assessment and plan: Suctioning only prn, per PT. (7) Discharge planning issues: Status: Acute Assessment and plan: Full code. Requests a palliative care consult to discuss going home on hospice, per nursing. May require a swing bed level stay prior to going home. (8) DVT prophylaxis: Status: Acute Assessment and plan: On therapeutic apixaban. Subjective Subjective Interval history since last seen: Feels better. Denies dizziness, chest pain, states she is not short of breath. Denies abdominal pain, nausea. She does report feeling hungry and would like to eat - which, per surgery, is ok. Exam Narrative Exam Narrative: General: Very pleasant elderly female, A&Ox3, sitting comfortably in a chair, looks better. HEENT: EOMI, MMM, Trach with deviation to the left, patent Heart: RRR, no m/r/g Lungs: crackles at B bases. Abdomen: soft, nontender, nondistended, + PEG, + hypoactive bowel sounds Extremities: trace BLE edema, chronic venous stasis dermatitis Objective Objective Clinical Data: Abnormal lab results 12/08/19 12/08/19 Range/Units 06:25 06:25 RBC 3.07 L (4.00-5.20) m/cumm Hgb 8.5 L (12.0-15.5) g/dL Hct 27.8 L (36.0-46.0) % MCHC 30.6 L (32.0-36.0) g/dL RDW 15.7 H (11.7-14.6) % Plt Count 433 H (130-400) x1000/uL Chloride 110 H (98-107) mmol/L Glucose 119 H (74-106) mg/dL Calcium 8.3 L (8.5-10.1) mg/dL Vital Signs Temperature 36.8 C 12/08/19 11:40 Temperature Source Tympanic 12/08/19 11:40 Pulse 93 H 12/08/19 11:40 Pulse Rhythm Regular 12/08/19 09:53 Respiratory Rate 22 12/08/19 11:40 Respiratory Effort Non-Labored 12/08/19 09:53 Respiratory Depth Normal 12/08/19 09:53 Respiratory Pattern Normal 12/08/19 09:53 Blood Pressure 146/75 H 12/08/19 11:40 Blood Pressure Mean 69 12/07/19 16:32 Blood Pressure Position Sitting 12/05/19 16:10 Pulse Oximetry 95 12/08/19 11:40 Oxygen Delivery Method Room Air 12/08/19 11:40 Oxygen Flow Rate 30 12/08/19 13:34 Fraction of Inspired Oxygen (FIO2) 21 12/08/19 13:34 Pain Level 0 12/08/19 11:40 Comment vitals not recording-just noted todays data is not coming thru-will ctm 12/06/19 08:30 Intake & Output 12/07/19 12/08/19 12/08/19 23:59 11:59 23:59 Intake Total 150 / 250 1260 / 1260 Output Total 545 / 1055 280 / 280 Balance -395 / -805 980 / 980 Weight 86.2 kg Intake: IV 50 / 150 1110 / 1110 Intake, Tube Feeding Amount 100 / 100 150 / 150 Output: Gastric Drainage 30 / 30 Lt Upper Quadrant 30 / 30 Urine 545 / 1010 250 / 250 Other: Urine Color Light Gabrielle Yellow Urine Appearance Clear Clear Urine Odor Normal Normal Comment Patient voided 125 cc on bedside commode and incontinent of 210 cc in her Attends. Stool Size Small Stool Characteristics Liquid Voiding Methods Bedside Commode Diaper Diaper Incontinent Laboratory Results WBC 7.76 k/cumm (4.4-10.8) 12/08/19 06:25 RBC 3.07 m/cumm (4.00-5.20) L 12/08/19 06:25 Hgb 8.5 g/dL (12.0-15.5) L 12/08/19 06:25 Hct 27.8 % (36.0-46.0) L 12/08/19 06:25 MCV 90.6 fL (80-95) 12/08/19 06:25 MCH 27.7 pg (27.0-33.0) 12/08/19 06:25 MCHC 30.6 g/dL (32.0-36.0) L 12/08/19 06:25 RDW 15.7 % (11.7-14.6) H 12/08/19 06:25 Plt Count 433 x1000/uL (130-400) H 12/08/19 06:25 MPV 9.3 fL (8.0-11.0) 12/08/19 06:25 Immature Gran % 0.0 % 12/08/19 06:25 Neutrophils % 71.0 12/08/19 06:25 Band Neutrophils % 1.0 % 12/08/19 06:25 Lymphocytes % 15.0 12/08/19 06:25 Atypical Lymphs % 3 12/08/19 06:25 Monocytes % 7.0 12/08/19 06:25 Eosinophils % 3.0 12/08/19 06:25 Basophils % 0.0 12/08/19 06:25 Absolute Neutrophils 5.59 k/cumm (1.2-6.7) 12/08/19 06:25 Absolute Lymphocytes 1.40 k/cumm (1.2-3.4) 12/08/19 06:25 Absolute Monocytes 0.54 k/cumm (0.11-0.7) 12/08/19 06:25 Absolute Eosinophils 0.23 k/cumm (0.0-0.7) 12/08/19 06:25 Absolute Basophils 0.00 k/cumm (0.0-0.2) 12/08/19 06:25 Differential Comment Manual differential 12/08/19 06:25 RBC Morphology See below 12/08/19 06:25 Hypochromasia 2+ 12/08/19 06:25 Anisocytosis 1+ 12/07/19 06:20 Sodium 144 mmol/L (136-145) 12/08/19 06:25 Potassium 4.3 mmol/L (3.5-5.1) 12/08/19 06:25 Chloride 110 mmol/L (98-107) H 12/08/19 06:25 Carbon Dioxide 25.1 mmol/L (21.0-32.0) 12/08/19 06:25 Anion Gap 8.9 mmol/L (3-11) 12/08/19 06:25 BUN 13 mg/dL (7-18) 12/08/19 06:25 Creatinine 0.64 mg/dL (0.55-1.02) 12/08/19 06:25 Estimated GFR/1.73 m2 >= 60.00 (mL/min/1.73m2) 12/08/19 06:25 Glucose 119 mg/dL (74-106) H 12/08/19 06:25 Calcium 8.3 mg/dL (8.5-10.1) L 12/08/19 06:25 Magnesium 1.9 mg/dL (1.8-2.4) 12/08/19 06:25 Barium Swallow: 1. No evidence of aspiration or tracheal esophageal fistula. 2. Tertiary contractions. 3. Postsurgical changes in the neck with a tracheostomy tube in place. 4. Right lower lobe infiltrate suspicious for pneumonia.
--- NOTE | 2019-12-08 14:31 | CMPROGNOTE_ITS ---
- If Service Date Differs Date of service: 12/08/19 Time of Service: 14:31 Care Management Progress Note S/O:Lisa remains inpatient she is alert and engaged during CM assessment. Lisa is receiving PT/OT and RT supports during her inpatient stay. CM is coordinating a team meeting anticipate Sunday afternoon awaiting confirmation. Lisa will return home when she is medically ready. Lisa did have a swallow study today awaiting the results she also is being seen by surgery related to g-tube. Lisa did request that her daughter Jasmin not be allowed to visit or call into her room. Lisa wrote in her own hand writing to now allow Jasmin here. CM contacted Jasmin and she agrees not to come in for a visit. 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 Admitted to swing bed for PT/OT, trach and retirement care. For essent ially failure to thrive at home and difficulty managing trach. Lisa will now be acute related to elevated white count, and pneumonia and need for IV antibiotics. P: Lisa will be discharged home when medically ready. She will have resumption of home health services including RT, OT, and nursing. She will also have support through palliative care with expectation at some point she may choose Hospice care. She will be transported home via private car with family at time of discharge.
[2019-12-08] MEDS: Furosemide 40 MG TAB PO (15:43)
--- NOTE | 2019-12-08 15:57 | PT.INTREAT ---
Date of service: 12/08/19 Time of Service: 15:57 PT Notes Visit Reasons: RIGHT LOWER LOBE PNEUMONIA/TRACHEOSTOMY CARE 12/08/2019 SUBJECTIVE: Lisa indicating she does not want to walk this afternoon. Is agreeable to seated exercise. OBJECTIVE: Seated in her recliner. Agreeable to PT. TRANSFERS/GAIT: Not observed this afternoon. THEREX: Seated UE/LE strengthening exercises as noted on flow sheet. Utilized light weights for UE's. See flow sheet for specifics. ASSESSMENT: Good participation with her exercises this afternoon despite not wanting to get up and walk. Pt would benefit from continued PT services for improvement in her functional mobility. Encouraged pt to get up and walk in the AM. PLAN: Continue current POC. Treatment time: 12 Connie Reynoso, ORNAMENT STITCHER
[2019-12-08] MEDS: Metoclopramide 10 MG TAB 5 MG PO ×2 (17:00→22:04)
[2019-12-08] MEDS: Insulin Aspart 300 UNITS/3 ML PEN SC (17:04)
--- NOTE | 2019-12-08 18:23 | W.PALPGNOTE ---
Date of service: 12/08/19 Time of Service: 18:23 Assessment and Plan Assessment and plan (1) Pneumonia of right lower lobe due to infectious organism: Status: Acute (2) Tracheostomy care: Status: Acute (3) Leukocytosis: Status: Acute (4) Anxiety: Status: Chronic (5) COPD (chronic obstructive pulmonary disease): Status: Chronic (6) Pharyngoesophageal dysphagia: Status: Acute (7) Discharge planning issues: Status: Acute Assessment and plan: There have been much family drama surrounding Lisa's illness. It sounds like it is starting to be sorted out. Lisa wants to go home and then stay home. She wants to go on hospice, stay comfortable, not return to any hospital. She also told me she wants to change her code status to DNR but continue with her trach tube and oxygen delivery system. We will continue this conversation Subjective Subjective Interval history since last seen: I am Lisa's PCP as well as her palliative care doctor. She has had an extremely ivanna course over the last 3 months due to her cancer and its subsequent treatment. She presently has a trach and is on breathing support, she has a PEG tube in place, she no longer can speak. She did have a swallowing eval today which did not show any fistula. She communicates by writing things down. Mentally she is intact. There have been very ivanna family dynamics. Presently 1 of her daughters is no longer able to visit her, get information about her, etc. I was told by care management that Lisa wanted to go home on hospice, not return to hospitals, not have any further care of her cancer treatment. I am meeting with Lisa to discuss this and again to readdress her CODE STATUS. Lisa told me clearly that she is not interested in more aggressive care. She does not want radiation or chemo. She does not want to return to [facility]. When she goes home she does not want to return to [facility]. We also spoke about CODE STATUS. She had several questions about it. I did say that she would be able to stay on her breathing support machine but that if her heart stopped that we would not resuscitate it i.e. no chest compressions or electricity if she chose to be a DO NOT RESUSCITATE. She shook her head several times that this is what her wishes were. I wanted her to think about this overnight and then we would talk again in the morning Exam Narrative Exam Narrative: She is sitting in her chair. She is able to write with some of the best cursive I ever seen. She shakes her head and writes down when I am not able to understand or want clarification. Her heart is regular today. Breathing regular. Abdomen soft nontender. Per surgeon: ate of Service Date of service: 12/08/19 Time of Service: 12:15 Assessment and Plan Assessment and plan (1) Adynamic ileus: Status: Resolved Assessment and plan: Her exam is benign today The barium swallow was normal, with no evidence of fistula between the trachea and esophagus. Patient cannot aspirate orally due to the removal of the proximal trachea and remedios-esophagus. Okay to resume pureed diet. May need to reduce volume of gastric feeds if this seems to cause bloating. Agree with reglan. Objective Objective Clinical Data: Abnormal lab results 12/08/19 12/08/19 Range/Units 06:25 06:25 RBC 3.07 L (4.00-5.20) m/cumm Hgb 8.5 L (12.0-15.5) g/dL Hct 27.8 L (36.0-46.0) % MCHC 30.6 L (32.0-36.0) g/dL RDW 15.7 H (11.7-14.6) % Plt Count 433 H (130-400) x1000/uL Chloride 110 H (98-107) mmol/L Glucose 119 H (74-106) mg/dL Calcium 8.3 L (8.5-10.1) mg/dL Vital Signs Temperature 98.6 F 12/08/19 15:15 Temperature Source Tympanic 12/08/19 15:15 Pulse 76 12/08/19 15:15 Pulse Rhythm Regular 12/08/19 09:53 Respiratory Rate 22 12/08/19 15:15 Respiratory Effort Non-Labored 12/08/19 09:53 Respiratory Depth Normal 12/08/19 09:53 Respiratory Pattern Normal 12/08/19 09:53 Blood Pressure 134/75 12/08/19 15:15 Blood Pressure Mean 69 12/07/19 16:32 Blood Pressure Position Sitting 12/05/19 16:10 Pulse Oximetry 95 12/08/19 15:15 Oxygen Delivery Method Room Air 12/08/19 11:40 Oxygen Flow Rate 30 12/08/19 17:12 Fraction of Inspired Oxygen (FIO2) 21 12/08/19 17:12 Pain Level 0 12/08/19 15:15 Comment vitals not recording-just noted todays data is not coming thru-will ctm 12/06/19 08:30 Intake & Output 12/07/19 12/08/19 12/08/19 23:59 11:59 23:59 Intake Total 150 / 250 1260 / 1948.75 688.75 / 1948.75 Output Total 545 / 1055 280 / 580 300 / 580 Balance -395 / -805 980 / 1368.75 388.75 / 1368.75 Weight 190 lb 0.615 oz Intake: IV 50 / 150 1110 / 1798.75 688.75 / 1798.75 Intake, Tube Feeding Amount 100 / 100 150 / 150 Output: Gastric Drainage 30 / 30 Lt Upper Quadrant 30 / 30 Urine 545 / 1010 250 / 550 300 / 550 Other: Urine Color Light Gabrielle Yellow Urine Appearance Clear Clear Urine Odor Normal Normal Comment Patient voided 125 cc on bedside commode and incontinent of 210 cc in her Attends. mixed with stool. Stool Size Small Small Stool Characteristics Liquid Liquid Voiding Methods Bedside Commode Diaper Diaper Incontinent Laboratory Results WBC 7.76 k/cumm (4.4-10.8) 12/08/19 06:25 RBC 3.07 m/cumm (4.00-5.20) L 12/08/19 06:25 Hgb 8.5 g/dL (12.0-15.5) L 12/08/19 06:25 Hct 27.8 % (36.0-46.0) L 12/08/19 06:25 MCV 90.6 fL (80-95) 12/08/19 06:25 MCH 27.7 pg (27.0-33.0) 12/08/19 06:25 MCHC 30.6 g/dL (32.0-36.0) L 12/08/19 06:25 RDW 15.7 % (11.7-14.6) H 12/08/19 06:25 Plt Count 433 x1000/uL (130-400) H 12/08/19 06:25 MPV 9.3 fL (8.0-11.0) 12/08/19 06:25 Immature Gran % 0.0 % 12/08/19 06:25 Neutrophils % 71.0 12/08/19 06:25 Band Neutrophils % 1.0 % 12/08/19 06:25 Lymphocytes % 15.0 12/08/19 06:25 Atypical Lymphs % 3 12/08/19 06:25 Monocytes % 7.0 12/08/19 06:25 Eosinophils % 3.0 12/08/19 06:25 Basophils % 0.0 12/08/19 06:25 Absolute Neutrophils 5.59 k/cumm (1.2-6.7) 12/08/19 06:25 Absolute Lymphocytes 1.40 k/cumm (1.2-3.4) 12/08/19 06:25 Absolute Monocytes 0.54 k/cumm (0.11-0.7) 12/08/19 06:25 Absolute Eosinophils 0.23 k/cumm (0.0-0.7) 12/08/19 06:25 Absolute Basophils 0.00 k/cumm (0.0-0.2) 12/08/19 06:25 Differential Comment Manual differential 12/08/19 06:25 RBC Morphology See below 12/08/19 06:25 Hypochromasia 2+ 12/08/19 06:25 Anisocytosis 1+ 12/07/19 06:20 Sodium 144 mmol/L (136-145) 12/08/19 06:25 Potassium 4.3 mmol/L (3.5-5.1) 12/08/19 06:25 Chloride 110 mmol/L (98-107) H 12/08/19 06:25 Carbon Dioxide 25.1 mmol/L (21.0-32.0) 12/08/19 06:25 Anion Gap 8.9 mmol/L (3-11) 12/08/19 06:25 BUN 13 mg/dL (7-18) 12/08/19 06:25 Creatinine 0.64 mg/dL (0.55-1.02) 12/08/19 06:25 Estimated GFR/1.73 m2 >= 60.00 (mL/min/1.73m2) 12/08/19 06:25 Glucose 119 mg/dL (74-106) H 12/08/19 06:25 Calcium 8.3 mg/dL (8.5-10.1) L 12/08/19 06:25 Magnesium 1.9 mg/dL (1.8-2.4) 12/08/19 06:25
--- NOTE | 2019-12-08 19:18 | W.PM.PROGNOT ---
Date of Service Date of service: 12/08/19 Time of Service: 12:15 Assessment and Plan Assessment and plan (1) Adynamic ileus: Status: Resolved Assessment and plan: Her exam is benign today The barium swallow was normal, with no evidence of fistula between the trachea and esophagus. Patient cannot aspirate orally due to the removal of the proximal trachea and remedios-esophagus. Okay to resume pureed diet. May need to reduce volume of gastric feeds if this seems to cause bloating. Agree with reglan. Subjective Subjective Interval history since last seen: Patient denies any abdominal pain. Had BM yesterday and two today Does not currently complain of bloating. PEG feeds were held for barium swallow today. Exam Narrative Exam Narrative: Alert, comfortable Abdomen obese but soft, nontender Objective Objective Clinical Data: Abnormal lab results 12/08/19 12/08/19 Range/Units 06:25 06:25 RBC 3.07 L (4.00-5.20) m/cumm Hgb 8.5 L (12.0-15.5) g/dL Hct 27.8 L (36.0-46.0) % MCHC 30.6 L (32.0-36.0) g/dL RDW 15.7 H (11.7-14.6) % Plt Count 433 H (130-400) x1000/uL Chloride 110 H (98-107) mmol/L Glucose 119 H (74-106) mg/dL Calcium 8.3 L (8.5-10.1) mg/dL Vital Signs Temperature 98.4 F 12/08/19 19:07 Temperature Source Tympanic 12/08/19 19:07 Pulse 87 12/08/19 19:07 Pulse Rhythm Regular 12/08/19 09:53 Respiratory Rate 20 12/08/19 19:07 Respiratory Effort Non-Labored 12/08/19 09:53 Respiratory Depth Normal 12/08/19 09:53 Respiratory Pattern Normal 12/08/19 09:53 Blood Pressure 149/72 H 12/08/19 19:07 Blood Pressure Mean 69 12/07/19 16:32 Blood Pressure Position Sitting 12/05/19 16:10 Pulse Oximetry 94 L 12/08/19 19:07 Oxygen Delivery Method Room Air 12/08/19 19:07 Oxygen Flow Rate 0 12/08/19 19:07 Fraction of Inspired Oxygen (FIO2) 21 12/08/19 17:12 Pain Level 0 12/08/19 15:15 Comment vitals not recording-just noted todays data is not coming thru-will ctm 12/06/19 08:30 Intake & Output 12/07/19 12/08/19 12/08/19 23:59 11:59 23:59 Intake Total 150 / 250 1260 / 1948.75 688.75 / 1948.75 Output Total 545 / 1055 280 / 580 300 / 580 Balance -395 / -805 980 / 1368.75 388.75 / 1368.75 Weight 190 lb 0.615 oz Intake: IV 50 / 150 1110 / 1798.75 688.75 / 1798.75 Intake, Tube Feeding Amount 100 / 100 150 / 150 Output: Gastric Drainage 30 / 30 Lt Upper Quadrant 30 / 30 Urine 545 / 1010 250 / 550 300 / 550 Other: Urine Color Light Gabrielle Yellow Urine Appearance Clear Clear Urine Odor Normal Normal Comment Patient voided 125 cc on bedside commode and incontinent of 210 cc in her Attends. mixed with stool. Stool Size Small Small Stool Characteristics Liquid Liquid Voiding Methods Bedside Commode Diaper Diaper Incontinent Laboratory Results WBC 7.76 k/cumm (4.4-10.8) 12/08/19 06:25 RBC 3.07 m/cumm (4.00-5.20) L 12/08/19 06:25 Hgb 8.5 g/dL (12.0-15.5) L 12/08/19 06:25 Hct 27.8 % (36.0-46.0) L 12/08/19 06:25 MCV 90.6 fL (80-95) 12/08/19 06:25 MCH 27.7 pg (27.0-33.0) 12/08/19 06:25 MCHC 30.6 g/dL (32.0-36.0) L 12/08/19 06:25 RDW 15.7 % (11.7-14.6) H 12/08/19 06:25 Plt Count 433 x1000/uL (130-400) H 12/08/19 06:25 MPV 9.3 fL (8.0-11.0) 12/08/19 06:25 Immature Gran % 0.0 % 12/08/19 06:25 Neutrophils % 71.0 12/08/19 06:25 Band Neutrophils % 1.0 % 12/08/19 06:25 Lymphocytes % 15.0 12/08/19 06:25 Atypical Lymphs % 3 12/08/19 06:25 Monocytes % 7.0 12/08/19 06:25 Eosinophils % 3.0 12/08/19 06:25 Basophils % 0.0 12/08/19 06:25 Absolute Neutrophils 5.59 k/cumm (1.2-6.7) 12/08/19 06:25 Absolute Lymphocytes 1.40 k/cumm (1.2-3.4) 12/08/19 06:25 Absolute Monocytes 0.54 k/cumm (0.11-0.7) 12/08/19 06:25 Absolute Eosinophils 0.23 k/cumm (0.0-0.7) 12/08/19 06:25 Absolute Basophils 0.00 k/cumm (0.0-0.2) 12/08/19 06:25 Differential Comment Manual differential 12/08/19 06:25 RBC Morphology See below 12/08/19 06:25 Hypochromasia 2+ 12/08/19 06:25 Anisocytosis 1+ 12/07/19 06:20 Sodium 144 mmol/L (136-145) 12/08/19 06:25 Potassium 4.3 mmol/L (3.5-5.1) 12/08/19 06:25 Chloride 110 mmol/L (98-107) H 12/08/19 06:25 Carbon Dioxide 25.1 mmol/L (21.0-32.0) 12/08/19 06:25 Anion Gap 8.9 mmol/L (3-11) 12/08/19 06:25 BUN 13 mg/dL (7-18) 12/08/19 06:25 Creatinine 0.64 mg/dL (0.55-1.02) 12/08/19 06:25 Estimated GFR/1.73 m2 >= 60.00 (mL/min/1.73m2) 12/08/19 06:25 Glucose 119 mg/dL (74-106) H 12/08/19 06:25 Calcium 8.3 mg/dL (8.5-10.1) L 12/08/19 06:25 Magnesium 1.9 mg/dL (1.8-2.4) 12/08/19 06:25
[2019-12-09] VITALS (11 sets, daily range): BP systolic 123–136; BP diastolic 58–76; PULSE 82–96; RESP 16–21; TEMP 34–37.2; O2SAT 89–97
[2019-12-09] MEDS: CEFEPIME 1 GM in Normal Saline 50 ML IVPB ×3 (02:12→18:45)
[2019-12-09] MEDS: Normal Saline Flush 10 ML SYR IVP ×3 (02:12→23:07)
[2019-12-09 06:45] LABS: Anion Gap 9.8 mmol/L (3-11); BUN 11 mg/dL (7-18); CO2 24.2 mmol/L (21.0-32.0); CREATININE 0.69 mg/dL (0.55-1.02); Calcium 8.3 mg/dL (8.5-10.1); Chloride 104 mmol/L (98-107); Glucose 118 mg/dL (74-106); Magnesium 1.8 mg/dL (1.8-2.4); Potassium 3.9 mmol/L (3.5-5.1); Sodium 138 mmol/L (136-145)
[2019-12-09 07:43] LABS: Procalcitonin < 0.1 ng/mL
--- NOTE | 2019-12-09 08:27 | PCPN_ITS ---
Date of service: 12/09/19 Time of Service: 06:27 Assessment and Plan Assessment and plan (1) Discharge planning issues: Status: Acute Assessment and plan: We again talked frankly about her CODE STATUS. She again said that she wanted to be a DNR, not resuscitated. She would like to keep her oxygen delivery system in place with a tracheostomy. She wants to be able to use the feeding tube if necessary. There is a family meeting at 12/12/2019. At that time I am going to redo her CO LST form so that the family is there and can see what her decisions are. Once home if she feels stable we will then also involve hospice care. Subjective Subjective Interval history since last seen: I am meeting with Lisa today so that she could again tell me what she wanted. There is a family meeting planned on December 12. I think it is important that we are all on the same page. Lisa again stated that she wants to be on hospice care when she goes home. She does not want further transfer to either [facility] or [facility]. She understands that by choosing this she may sooner. Mostly when she is interested is in quality of life and does not consider living in a hospital quality of life. She wants to be a DNR Exam Narrative Exam Narrative: Unchanged from yesterday Objective Objective Clinical Data: Abnormal lab results 12/09/19 Range/Units 06:11 Glucose 118 H (74-106) mg/dL Calcium 8.3 L (8.5-10.1) mg/dL Vital Signs Temperature 97.7 F 12/09/19 07:47 Temperature Source Tympanic 12/09/19 07:47 Pulse 93 H 12/09/19 07:47 Pulse Rhythm Regular 12/09/19 02:02 Respiratory Rate 16 12/09/19 07:47 Respiratory Effort Non-Labored 12/09/19 02:02 Respiratory Depth Normal 12/09/19 02:02 Respiratory Pattern Normal 12/09/19 02:02 Blood Pressure 133/58 L 12/09/19 07:47 Blood Pressure Mean 69 12/07/19 16:32 Blood Pressure Position Sitting 12/05/19 16:10 Pulse Oximetry 92 L 12/09/19 07:47 Oxygen Delivery Method Room Air 12/09/19 07:47 Oxygen Flow Rate 0 12/09/19 07:47 Fraction of Inspired Oxygen (FIO2) 21 12/08/19 17:12 Pain Level 0 12/09/19 07:47 Comment 12/09/19 04:10 Intake & Output 12/08/19 12/08/19 12/09/19 11:59 23:59 11:59 Intake Total 1260 / 1997.75 738.75 / 1997.75 50 / 50 Output Total 280 / 830 550 / 830 400 / 400 Balance 980 / 1168.75 188.75 / 1168.75 -350 / -350 Weight 190 lb 0.615 oz 187 lb 9.814 oz Intake: IV 1110 / 1848.75 738.75 / 1848.75 50 / 50 Intake, Tube Feeding Amount 150 / 150 Output: Gastric Drainage 30 / 30 Lt Upper Quadrant 30 / 30 Urine 250 / 800 550 / 800 400 / 400 Other: Urine Color Yellow Yellow Yellow Urine Appearance Clear Clear Clear Urine Odor Normal None Comment mixed with stool. Stool Size Small Small Small Stool Characteristics Liquid Liquid Soft Formed Voiding Methods Diaper Bedside Commode Bedside Commode Incontinent Laboratory Results WBC 7.76 k/cumm (4.4-10.8) 12/08/19 06:25 RBC 3.07 m/cumm (4.00-5.20) L 12/08/19 06:25 Hgb 8.5 g/dL (12.0-15.5) L 12/08/19 06:25 Hct 27.8 % (36.0-46.0) L 12/08/19 06:25 MCV 90.6 fL (80-95) 12/08/19 06:25 MCH 27.7 pg (27.0-33.0) 12/08/19 06:25 MCHC 30.6 g/dL (32.0-36.0) L 12/08/19 06:25 RDW 15.7 % (11.7-14.6) H 12/08/19 06:25 Plt Count 433 x1000/uL (130-400) H 12/08/19 06:25 MPV 9.3 fL (8.0-11.0) 12/08/19 06:25 Immature Gran % 0.0 % 12/08/19 06:25 Neutrophils % 71.0 12/08/19 06:25 Band Neutrophils % 1.0 % 12/08/19 06:25 Lymphocytes % 15.0 12/08/19 06:25 Atypical Lymphs % 3 12/08/19 06:25 Monocytes % 7.0 12/08/19 06:25 Eosinophils % 3.0 12/08/19 06:25 Basophils % 0.0 12/08/19 06:25 Absolute Neutrophils 5.59 k/cumm (1.2-6.7) 12/08/19 06:25 Absolute Lymphocytes 1.40 k/cumm (1.2-3.4) 12/08/19 06:25 Absolute Monocytes 0.54 k/cumm (0.11-0.7) 12/08/19 06:25 Absolute Eosinophils 0.23 k/cumm (0.0-0.7) 12/08/19 06:25 Absolute Basophils 0.00 k/cumm (0.0-0.2) 12/08/19 06:25 Differential Comment Manual differential 12/08/19 06:25 RBC Morphology See below 12/08/19 06:25 Hypochromasia 2+ 12/08/19 06:25 Anisocytosis 1+ 12/07/19 06:20 Sodium 138 mmol/L (136-145) 12/09/19 06:11 Potassium 3.9 mmol/L (3.5-5.1) 12/09/19 06:11 Chloride 104 mmol/L (98-107) 12/09/19 06:11 Carbon Dioxide 24.2 mmol/L (21.0-32.0) 12/09/19 06:11 Anion Gap 9.8 mmol/L (3-11) 12/09/19 06:11 BUN 11 mg/dL (7-18) 12/09/19 06:11 Creatinine 0.69 mg/dL (0.55-1.02) 12/09/19 06:11 Estimated GFR/1.73 m2 >= 60.00 (mL/min/1.73m2) 12/09/19 06:11 Glucose 118 mg/dL (74-106) H 12/09/19 06:11 Calcium 8.3 mg/dL (8.5-10.1) L 12/09/19 06:11 Magnesium 1.8 mg/dL (1.8-2.4) 12/09/19 06:11 Procalcitonin < 0.1 ng/mL 12/09/19 06:11
[2019-12-09] MEDS: Metoclopramide 10 MG TAB 5 MG PO ×4 (09:28→21:45)
[2019-12-09] MEDS: Potassium Chloride Liquid 20 MEQ PKT PO ×2 (09:28→20:37)
[2019-12-09] MEDS: Nystatin 500000 UNITS/5 ML SUSP 5ML CUP PO ×4 (09:28→20:38)
[2019-12-09] MEDS: Metoprolol CR 25 MG TABCR 12.5 MG PO ×2 (09:30→20:37)
[2019-12-09] MEDS: Furosemide 40 MG TAB PO ×2 (09:31→16:23)
[2019-12-09] MEDS: Apixaban 5 MG TAB PO ×2 (09:32→20:37)
--- NOTE | 2019-12-09 10:10 | TELEFU_ITS ---
Date of service: 12/09/19 Time of Service: 10:11 Nutritional Follow up NOTE: Lisa continues to tolerate puree meals, thin liquids and po intake typically >50% and providing approximately 900 calories daily and meeting 75% of caloric and protein needs. At this time, recommend decreasing bolus feedings to twice daily - Nutrin 1.5 240 ml BID, flush 30 cc pre/post flush providing total of 750 kcal, 34 grams protein, 500 cc fluid. Beneprotein no longer needed as po intake/ boluses meeting protein needs. PRIZE FIGHTER eval pending as Lisa does not want pureed foods. Continue with meals as ordered. If po intake becomes <50% of meals/then add another bolus fed. will be available prn. Time Spent in Nutritional Counseling and Treatment: 10 min spent face to face
--- NOTE | 2019-12-09 10:40 | NT_ITS ---
Date of service: 12/09/19 Time of Service: 10:40 PT Notes Visit Reasons: RIGHT LOWER LOBE PNEUMONIA/TRACHEOSTOMY CARE 12/09/2019 Pt refused PT x 2 this AM. She is not feeling well. She is agreeable to 2:00 PM PT if she is feeling better. Connie Reynoso, PERSONAL LINES INSURANCE AGENT
--- NOTE | 2019-12-09 12:01 | W.INDIABCONS ---
Date of service: 12/09/19 Time of Service: 12:01 Diabetes Inpatient Consult DESCRIPTION/ASSESSMENT: Appreciate diabetes consult for Lisa Castellanos, 79 year old with blood sugars here 115-187 with sensitive insulin correction. She does not carry a diagnosis of diabetes on problem list and has no oral diabetes medication at home. No A1c available. BMI 32 Here she has received nutrition orally and via tube feeding and assessed at this time as adequate. INTERVENTION: No intervention suggested at this time for glycemic control. PLAN: Will follow blood sugars and await further request for glycemic support Time Spent in Nutritional Counseling and Treatment: 0 minutes face to face
--- NOTE | 2019-12-09 12:27 | PDOC.CMPRO ---
Care Management Progress Note S/O: Lisa remains inpatient at this time and continues to work with PT/OT/RT as well. She is sitting up in her chair when CM entered the room, she remains pleasant in interaction. Per report, Lisa is advocating for returning home on Hospice. Lisa requested her daughter Jasmin not be permitted to visit or call into her room. Lisa requested this in her own hand writing. CM contacted Jasmin and Jasmin verbalized understanding and aggrement to request. 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 Admitted to swing bed for PT/OT, trach and halfway care. For essentially failure to thrive at home and difficulty managing trach. Lisa will now be acute related to elevated white count, and pneumonia and need for IV antibiotics. P: CM coordination of team meeting Sunday (12/10/19) to ensure continuity of care and equipment coordination; awaiting confirmation from community providers. Lisa will be transported home via private vehicle with family at time of discharge, undetermined discharge plan at this time; [id number].
[2019-12-09] MEDS: guaiFENesin 200 MG/10 ML CUP 400 MG PO ×2 (13:23→20:37)
--- NOTE | 2019-12-09 13:46 | STVN_ITS ---
Date of service: 12/09/19 Time of Service: 13:47 Speech Therapy Visit Note Note: This ASSISTANT BOYS TRACK COACH received faxed information from [facility] [place] regarding pts prior hospitalizations as well as prior ASSISTANT BOYS TRACK COACH services. This ASSISTANT BOYS TRACK COACH spoke with JACQUE Beckford for [facility] who stated she recommended pt return to [facility] [place] [place] ASSISTANT BOYS TRACK COACH if possible for further services given prior plan of care, surgical care and complications. ASSISTANT BOYS TRACK COACH discussed this with [facility] nurse today and will f/u with Dr. Castro given pts change in status that she will likely transition to hospice per nsg. This ASSISTANT BOYS TRACK COACH will also contact [facility] [place] [place] to discuss further.
--- NOTE | 2019-12-09 13:46 | W.SPEECHNOTE ---
Date of service: 12/09/19 Time of Service: 13:47 Speech Therapy Visit Note Note: This CURING OVEN ATTENDANT received faxed information from [facility] regarding pts prior hospitalizations as well as prior CURING OVEN ATTENDANT services. This CURING OVEN ATTENDANT spoke with JACQUE Beckford for [facility] who stated she recommended pt return to [facility] CURING OVEN ATTENDANT if possible for further services given prior plan of care, surgical care and complications. CURING OVEN ATTENDANT discussed this with [facility] nurse today and will f/u with Dr. Castro given pts change in status that she will likely transition to hospice per nsg. This CURING OVEN ATTENDANT will also contact [facility] to discuss further.
--- NOTE | 2019-12-09 13:52 | W.PM.PROGNOT ---
Date of Service Date of service: 12/09/19 Time of Service: 12:00 Assessment and Plan Assessment and plan (1) Adynamic ileus: Status: Resolved Assessment and plan: She is tolerating PO and has a benign exam. Agree with resuming her supplemental feeds Will sign off, please contact surgery if needed. Subjective Subjective Interval history since last seen: She reports she is feeling well Tolerated pureed diet although was not fond of the consistency No abdominal pain after resuming diet. Passing flatus. Exam Narrative Exam Narrative: Alert, comfortable Abdomen soft, nontender, nondistended Objective Objective Clinical Data: Abnormal lab results 12/09/19 Range/Units 06:11 Glucose 118 H (74-106) mg/dL Calcium 8.3 L (8.5-10.1) mg/dL Vital Signs Temperature 98.1 F 12/09/19 11:52 Temperature Source Tympanic 12/09/19 11:52 Pulse 82 12/09/19 11:52 Pulse Rhythm Regular 12/09/19 08:32 Respiratory Rate 18 12/09/19 11:52 Respiratory Effort Non-Labored 12/09/19 08:40 Respiratory Depth Normal 12/09/19 08:40 Respiratory Pattern Normal 12/09/19 08:40 Blood Pressure 123/63 12/09/19 11:52 Blood Pressure Mean 69 12/07/19 16:32 Blood Pressure Position Sitting 12/05/19 16:10 Pulse Oximetry 94 L 12/09/19 11:52 Oxygen Delivery Method Room Air 12/09/19 11:52 Oxygen Flow Rate 0 12/09/19 11:52 Fraction of Inspired Oxygen (FIO2) 21 12/09/19 09:47 Pain Level 0 12/09/19 11:52 Comment 12/09/19 04:10 Intake & Output 12/08/19 12/09/19 12/09/19 23:59 11:59 23:59 Intake Total 978.75 / 2238.75 530 / 890 360 / 890 Output Total 550 / 830 750 / 750 Balance 428.75 / 1408.75 -220 / 140 360 / 140 Weight 187 lb 9.814 oz Intake: IV 738.75 / 1848.75 50 / 50 Oral 240 / 240 480 / 840 360 / 840 Output: Urine 550 / 800 750 / 750 Other: Urine Color Yellow Yellow Urine Appearance Clear Clear Urine Odor None Comment mixed with stool. mixed with stool. Stool Size Small Moderate Stool Characteristics Liquid Liquid Voiding Methods Bedside Commode Bedside Commode Laboratory Results WBC 7.76 k/cumm (4.4-10.8) 12/08/19 06:25 RBC 3.07 m/cumm (4.00-5.20) L 12/08/19 06:25 Hgb 8.5 g/dL (12.0-15.5) L 12/08/19 06:25 Hct 27.8 % (36.0-46.0) L 12/08/19 06:25 MCV 90.6 fL (80-95) 12/08/19 06:25 MCH 27.7 pg (27.0-33.0) 12/08/19 06:25 MCHC 30.6 g/dL (32.0-36.0) L 12/08/19 06:25 RDW 15.7 % (11.7-14.6) H 12/08/19 06:25 Plt Count 433 x1000/uL (130-400) H 12/08/19 06:25 MPV 9.3 fL (8.0-11.0) 12/08/19 06:25 Immature Gran % 0.0 % 12/08/19 06:25 Neutrophils % 71.0 12/08/19 06:25 Band Neutrophils % 1.0 % 12/08/19 06:25 Lymphocytes % 15.0 12/08/19 06:25 Atypical Lymphs % 3 12/08/19 06:25 Monocytes % 7.0 12/08/19 06:25 Eosinophils % 3.0 12/08/19 06:25 Basophils % 0.0 12/08/19 06:25 Absolute Neutrophils 5.59 k/cumm (1.2-6.7) 12/08/19 06:25 Absolute Lymphocytes 1.40 k/cumm (1.2-3.4) 12/08/19 06:25 Absolute Monocytes 0.54 k/cumm (0.11-0.7) 12/08/19 06:25 Absolute Eosinophils 0.23 k/cumm (0.0-0.7) 12/08/19 06:25 Absolute Basophils 0.00 k/cumm (0.0-0.2) 12/08/19 06:25 Differential Comment Manual differential 12/08/19 06:25 RBC Morphology See below 12/08/19 06:25 Hypochromasia 2+ 12/08/19 06:25 Anisocytosis 1+ 12/07/19 06:20 Sodium 138 mmol/L (136-145) 12/09/19 06:11 Potassium 3.9 mmol/L (3.5-5.1) 12/09/19 06:11 Chloride 104 mmol/L (98-107) 12/09/19 06:11 Carbon Dioxide 24.2 mmol/L (21.0-32.0) 12/09/19 06:11 Anion Gap 9.8 mmol/L (3-11) 12/09/19 06:11 BUN 11 mg/dL (7-18) 12/09/19 06:11 Creatinine 0.69 mg/dL (0.55-1.02) 12/09/19 06:11 Estimated GFR/1.73 m2 >= 60.00 (mL/min/1.73m2) 12/09/19 06:11 Glucose 118 mg/dL (74-106) H 12/09/19 06:11 Calcium 8.3 mg/dL (8.5-10.1) L 12/09/19 06:11 Magnesium 1.8 mg/dL (1.8-2.4) 12/09/19 06:11 Procalcitonin < 0.1 ng/mL 12/09/19 06:11
--- NOTE | 2019-12-09 14:49 | PTTR_ITS ---
Date of service: 12/09/19 Time of Service: 14:49 PT Notes Visit Reasons: RIGHT LOWER LOBE PNEUMONIA/TRACHEOSTOMY CARE 12/09/2019 SUBJECTIVE: Pt does not feel up to walking with me this afternoon. She is agreeable to get and do some standing exercises. OBJECTIVE: Seated in her recliner. Agreeable to PT. TRANSFERS Sit to stand: SBA Stand to sit: SBA GAIT: No observed. Stood in place utilizing FWW, SBA THEREX: Standing and sitting LE strengthening exercises performed as noted on flow sheet. Pt stands for me on two different occasions with seated rest break between. See flow sheet. ASSESSMENT: No difficulty with sit to stand transfers today. She is transferring short distance with nursing to the commode but does not feel up to walking farther distance with PT. She put in good effort with her strengthening exercises today. PLAN: Continue current POC. Treatment time: 15 minutes [id number] Connie Reynoso, [employer]
--- NOTE | 2019-12-09 15:23 | W.PM.PROGNOT ---
Date of Service Date of service: 12/09/19 Time of Service: 15:24 Assessment and Plan Assessment and plan (1) Pneumonia of right lower lobe due to infectious organism: Status: Acute Assessment and plan: Procalcitonin negative today - finish antibiotics tonight. Barium swallow ruled out a tracheoesophageal fistula - aspiration pneumonia virtually impossible. (2) UTI (urinary tract infection): Status: Acute Assessment and plan: Due to Klebsiella pneumonia, present on admission. Finish antibiotics. (3) Adynamic ileus: Status: Resolved Assessment and plan: Clinically resolved. Did have some abdominal distention with resumption of diet. If recurs/persists, repeat abdominal imaging. Continue low dose of reglan AC/HS. (4) Anxiety: Status: Chronic Assessment and plan: Seems to be controlled with a more measured approach to suctioning. 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 No evidence of tracheoesophageal fistula on barium swallow. (6) Tracheostomy care: Status: Acute Assessment and plan: Suctioning only prn, per PT. (7) Discharge planning issues: Status: Acute Assessment and plan: Full code. Considering going home on hospice - when is not yet clear. (8) DVT prophylaxis: Status: Acute Assessment and plan: On therapeutic apixaban. Subjective Subjective Interval history since last seen: Ms Anderson had some abdominal discomfort this morning. It has passed. She had 2 BM's today and has been able to tolerate breakfast, but not a lot of lunch. She did not feel good enough to work with PT. No nausea. Breathing feels good. Still having cough to clear sputum. Reports difficulty swallowing this morning. Exam Narrative Exam Narrative: General: Very pleasant elderly female, A&Ox3, sitting comfortably in a chair, looks better. HEENT: EOMI, MMM, Trach with deviation to the left, patent Heart: RRR, no m/r/g Lungs: CTAB Abdomen: soft, nontender, mildly distended, + PEG, + hypoactive bowel sounds Extremities: trace BLE edema, chronic venous stasis dermatitis Objective Objective Clinical Data: Abnormal lab results 12/09/19 Range/Units 06:11 Glucose 118 H (74-106) mg/dL Calcium 8.3 L (8.5-10.1) mg/dL Vital Signs Temperature 36.7 C 12/09/19 11:52 Temperature Source Tympanic 12/09/19 11:52 Pulse 82 12/09/19 11:52 Pulse Rhythm Regular 12/09/19 08:32 Respiratory Rate 18 12/09/19 11:52 Respiratory Effort Non-Labored 12/09/19 08:40 Respiratory Depth Normal 12/09/19 08:40 Respiratory Pattern Normal 12/09/19 08:40 Blood Pressure 123/63 12/09/19 11:52 Blood Pressure Mean 69 12/07/19 16:32 Blood Pressure Position Sitting 12/05/19 16:10 Pulse Oximetry 94 L 12/09/19 11:52 Oxygen Delivery Method Room Air 12/09/19 11:52 Oxygen Flow Rate 0 12/09/19 11:52 Fraction of Inspired Oxygen (FIO2) 21 12/09/19 09:47 Pain Level 0 12/09/19 11:52 Comment 12/09/19 04:10 Intake & Output 12/08/19 12/09/19 12/09/19 23:59 11:59 23:59 Intake Total 978.75 / 2238.75 530 / 890 360 / 890 Output Total 550 / 830 750 / 750 Balance 428.75 / 1408.75 -220 / 140 360 / 140 Weight 85.1 kg Intake: IV 738.75 / 1848.75 50 / 50 Oral 240 / 240 480 / 840 360 / 840 Output: Urine 550 / 800 750 / 750 Other: Urine Color Yellow Yellow Urine Appearance Clear Clear Urine Odor None Comment mixed with stool. mixed with stool. Stool Size Small Moderate Stool Characteristics Liquid Liquid Voiding Methods Bedside Commode Bedside Commode Bedside Commode Diaper Incontinent Laboratory Results WBC 7.76 k/cumm (4.4-10.8) 12/08/19 06:25 RBC 3.07 m/cumm (4.00-5.20) L 12/08/19 06:25 Hgb 8.5 g/dL (12.0-15.5) L 12/08/19 06:25 Hct 27.8 % (36.0-46.0) L 12/08/19 06:25 MCV 90.6 fL (80-95) 12/08/19 06:25 MCH 27.7 pg (27.0-33.0) 12/08/19 06:25 MCHC 30.6 g/dL (32.0-36.0) L 12/08/19 06:25 RDW 15.7 % (11.7-14.6) H 12/08/19 06:25 Plt Count 433 x1000/uL (130-400) H 12/08/19 06:25 MPV 9.3 fL (8.0-11.0) 12/08/19 06:25 Immature Gran % 0.0 % 12/08/19 06:25 Neutrophils % 71.0 12/08/19 06:25 Band Neutrophils % 1.0 % 12/08/19 06:25 Lymphocytes % 15.0 12/08/19 06:25 Atypical Lymphs % 3 12/08/19 06:25 Monocytes % 7.0 12/08/19 06:25 Eosinophils % 3.0 12/08/19 06:25 Basophils % 0.0 12/08/19 06:25 Absolute Neutrophils 5.59 k/cumm (1.2-6.7) 12/08/19 06:25 Absolute Lymphocytes 1.40 k/cumm (1.2-3.4) 12/08/19 06:25 Absolute Monocytes 0.54 k/cumm (0.11-0.7) 12/08/19 06:25 Absolute Eosinophils 0.23 k/cumm (0.0-0.7) 12/08/19 06:25 Absolute Basophils 0.00 k/cumm (0.0-0.2) 12/08/19 06:25 Differential Comment Manual differential 12/08/19 06:25 RBC Morphology See below 12/08/19 06:25 Hypochromasia 2+ 12/08/19 06:25 Anisocytosis 1+ 12/07/19 06:20 Sodium 138 mmol/L (136-145) 12/09/19 06:11 Potassium 3.9 mmol/L (3.5-5.1) 12/09/19 06:11 Chloride 104 mmol/L (98-107) 12/09/19 06:11 Carbon Dioxide 24.2 mmol/L (21.0-32.0) 12/09/19 06:11 Anion Gap 9.8 mmol/L (3-11) 12/09/19 06:11 BUN 11 mg/dL (7-18) 12/09/19 06:11 Creatinine 0.69 mg/dL (0.55-1.02) 12/09/19 06:11 Estimated GFR/1.73 m2 >= 60.00 (mL/min/1.73m2) 12/09/19 06:11 Glucose 118 mg/dL (74-106) H 12/09/19 06:11 Calcium 8.3 mg/dL (8.5-10.1) L 12/09/19 06:11 Magnesium 1.8 mg/dL (1.8-2.4) 12/09/19 06:11 Procalcitonin < 0.1 ng/mL 12/09/19 06:11
--- NOTE | 2019-12-09 16:00 | INDS_ITS ---
Date of service: 12/09/19 PT Notes Visit Reasons: RIGHT LOWER LOBE PNEUMONIA/TRACHEOSTOMY CARE Inpatient Physical Therapy Discharge Summary Dates: 12/09/2019 Dates of Service: 12/05/2019 through 12/09/2019 This is a clinical summary of care provided on the duration of dates listed above. No charge was made in the completion of this documentation. Referring Doctor: Gisell Aguilera N.P. PT Orders: PT CONSULT: Limited ability Precautions: Fall. Standard. Activity as tolerated. Patient Profile/Admitting Diagnosis: Patient is an 79-year-old female with a history of pulmonary embolism, squamous cell carcinoma, vocal cord carcinoma, and s/p radiation, s/p laryngectomy and thyroidectomy, and tracheostomy placement. She presented to the ER on 11/30/2019 and 12/02/2019 with tracheostomy problems. Admitted to the hospital with diagnoses of deficient knowledge of tracheotomy care, pulmonary embolism, R vocal cord cancer, and COPD. PMHX: Anxiety Depression COPD Phyryngoesophageal dysphagia Pyriform sinus mass Vocal cord paralysis Vitamin D deficiency Urinary incontinence Cerebral AV malformation Chronic venous insufficiency Low back pain CVA Social History/Home Situation: Pt lives alone at home in [place]. She notes there are not stairs to enter the home and none once in the home. Has two daughters and one son that live nearby and help around the home. Equipment Owned/DME: four-wheeled walker Subjective: Patient reports that when she was at [facility] [place] they always had her on oxygen when walking. Per nursing, the patient was not on oxygen when at home. Per medical records, the patient?s family is not able to care for her at home. The patient reports that she had previously been able to perform her own cooking. Objective: General Observation: NT Mental Status: NT Vital Signs: NT ROM: Right Upper Extremity: Shoulder Flexion WFL. Shoulder abduction WFL. Elbow flexion WFL. Wrist flexion WFL. Opening and closing of hand WFL. Left Upper Extremity: Shoulder Flexion WFL. Shoulder abduction WFL. Elbow flexion WFL. Wrist flexion WFL. Opening and closing of hand WFL. Right Lower Extremity: Hip flexion WFL. Hip abduction WFL. Knee flexion WFL. Ankle dorsiflexion WFL. Ankle plantarflexion WFL. Left Lower Extremity: Hip flexion WFL. Hip abduction WFL. Knee flexion WFL. Ankle dorsiflexion WFL. Ankle plantarflexion WFL. Strength: Right Upper Extremity: Shoulder flexors 3+/5. Shoulder abductors 3+/5. Elbow flexors 5/5. Elbow extensors 5/5. Export Packer strong. Left Upper Extremity: Shoulder flexors 3+/5. Shoulder abductors 3+/5. Elbow flexors 5/5. Elbow extensors 5/5. Export Packer strong. Right Lower Extremity: Hip flexors 5/5. Hip abductors 5/5. Knee flexors 5/5. Knee extensors 5/5. Ankle dorsiflexors 5/5. Ankle plantarflexors 5/5. Left Lower Extremity: Hip flexors 5/5. Hip abductors 5/5. Knee flexors 5/5. Knee extensors 5/5. Ankle dorsiflexors 5/5. Ankle plantarflexors 5/5. Sensation: Intact as to pain and pressure on bilateral lower extremities. Bed Mobility/Transfers: Sit to stand SBA Stand to sit SBA Bed to chair SBA Chair to bed SBA Gait: Pt was able to ambulate 120 feet, full weight bearing, using a front- wheeled walker. Reciprocal gait pattern. CGA provided by PT student with SBA provided by PT and wheelchair follow by the patient?s son. Balance: Static Sitting: Normal Dynamic Sitting: Normal Static Standing: Fair Dynamic Standing: Fair Assessment: Patient stated during visit on 12/09/2019 that she does not feel that she continues to need skilled physical therapy services. She states that she is all set with her ambulation status Using front wheeled walker and that she plans on going home this coming 12/12/2019. Patient is an 79-year-old female with a history of pulmonary embolism, squamous cell carcinoma, vocal cord carcinoma, and s/p radiation, s/p laryngectomy and thyroidectomy, and tracheostomy placement. She presented to the ER on 11/30/2019 and 12/02/2019 with tracheostomy problems. Admitted to the hospital with diagnoses of deficient knowledge of tracheotomy care, pulmonary embolism, R vocal cord cancer, and COPD. Pt presents with impairment level findings and functional limitations as listed below. Patient presented with clinical signs and symptoms consistent with current/admitting diagnoses that have resulted to mobility limitations, gait instability, and generalized weakness as demonstrated by the following impairment level findings: 1. Decreased strength to B UE shoulder muscle groups 2. Impaired standing balance 3. Impaired activity tolerance 4. Impaired respiratory function Impairments continue to contribute to the following functional limitations: 1. Inability to safely ambulate without assistive device and physical assistance 2. Increase completion time for mobility ADL performance 3. Increased fall risk 4. Inability to negotiate steps alone safely Goals: Goals X1 week 1. Supine-Sit independent NOT MET 2. Sit-Supine independent NOT MET 3. Sit-Stand independent NOT MET 4. Stand-Sit independent NOT MET 5. Bed-Chair independent NOT MET 6. Chair-Bed independent NOT MET 7. Independent gait on level surface with use of least restrictive device for at least 300 feet without report of pain nor dyspnea NOT MET 9. Independent with home exercise program NOT MET 10. Good static and dynamic standing balance/tolerance NOT MET DISCHARGE RECOMMENDATIONS: Patient will benefit from home health PT services in order to progress mobility level using least restrictive assistive ambulatory device, assess home safety, identify additional equipment needs, and establish a functional maintenance program that will increase ability of patient to remain at home. TREATMENT CODE/TIME: [place] Thank you very much for this referral. Valeria Reyes PT, DPT, CLT [facility] [place], [place]
--- NOTE | 2019-12-10 08:00 | W.SPEECHEVAL ---
Date of service: 12/10/19 Time of Service: 08:00 Speech Therapy Evaluation Note: Speech-Language/Swallowing Pathology Clinical Dysphagia Evaluation Medical Diagnosis: Tracheostomy Hemorrhage Therapy Diagnosis: Dysphagia Unspecified Current Level of Care: Medical Subjective: Pt was sitting in the chair upon arrival, awake and alert. Pt was agreeable to evaluation. Pt able to communicate via mouthing words, gestures, facial expressions and writing. Pertinent Medical/Swallowing History & Previous Level of Function: Per H & P 12/02/19: Chief Complaint: hemoptysis Narrative: This is a 79-year-old female w/ a past medical history of pulmonary embolism, squamous cell carcinoma, vocal cord carcinoma, status post radiation, who underwent laryngectomy and thyroidectomy at [facility] complicated by an abscess and fluid collection, subsequent postoperative multi lobar pneumonia and pulmonary hemorrhage that required inhaled TXA. She was discharged from [facility] 6 days ago to home. Since being at home patient and family having difficulty managing trach and secretions. She was seen here 2 days prior for the same complaint and had labs and CT imaging which were unremarkable - she had been placed on humidified O2 with gentle suctioning of her tracheostomy which was cleared without any further bleeding and she was discharged home with plan for continued home health with both nursing and [employer] assistance. work up in the ED again was unremarkable. she will be referred to observation on med/surg for failure to manage trach at home. she was scheduled to see Dr Sánchez outpatient, she will see her here on med/surg. Per H & P 12/04/19: Chief Complaint: Right lower lobe pneumonia/tracheostomy care Narrative: This is an 79-year-old woman who has a history of laryngeal cancer. She underwent a laryngectomy procedure about 3 months ago at [facility]. It was a long complicated recovery. Post hospitalization she was at a residential in [facility]. She was home with family members caring for her for about 6 days. She was sent to the emergency room because of continued bleeding from her trachea. It turns out family members were suctioning through the trachea on a regular basis, causing some bleeding to occur which resulted in her being sent to the emergency room for evaluation. She was admitted and respiratory therapy worked with the patient and her family on proper suctioning techniques. The bleeding stopped. She was transition to swing bed in anticipation of returning home. She developed a cough and had a high white count so a chest x-ray was obtained on 12/04/2019. She was started on IV antibiotics for right lower lobe pneumonia. Urinalysis also showed evidence of infection. She was transitioned back to acute today. Additional PMHx includes: Per review of [facility] medical records obtained by SNIPPER upon referral for swallow evaluation, pt was admitted to [facility] 09/09/19. Pt is s/p total laryngectomy and pharyngeal reconstruction with left RFFF 09/09/19. Hospital course was complicated by Klebsiella pneumoniae in right ROSITA fluid, leading to return to OR for washout on 09/19/19. Hospital course further complicated by subsegmental PE's, b/l pleural effusions, and b/l lower lobe airspace opacity. Pt having issues with decompensation and trach was exchanged from [facility] to german sosa with improved stability. Pt unable to tolerate anna marie tube per report due to airway collapse and required trach tube. Pt was seen by SNIPPER multiple times at [facility] for both dysphagia and aphonia. Recommendations were made for electrolarynx and this was reported to be ordered however pt states today that she has not yet received it. This SNIPPER will f/u with [facility] again as pt stating she would like to continue to pursue electrolarynx for improved ability to communicate. Pt was placed on a puree diet and thin liquids while at [facility]. Per Dr. Pryor's office, pt not currently scheduled for any follow ups. Current Level of Function & Reason for Referral: Pt is currently on a puree diet and thin liquids but receives most of her nutrition and hydration via PEG tube. Pt was referred for a swallow evaluation by Dr. Castro due to pt requesting diet upgrade. This SNIPPER spoke with oncology team at [facility] who recommended pt return to them for assessment first however per Dr. Castro pt does not want to return to [facility] and will likely be transitioning to hospice upon return home. Bedside swallow evaluation was completed today. Precautions: s/p total laryngectomy, s/p tracheostomy Medications: Pt currently taking all meds crushed via PEG tube. Pt has indicated she has no interest in trialing meds PO. Barriers to Learning: None. Pt is alert and attention is WFL. Respiratory Function: Pt s/p tracheostomy. Last documented as Shiley size 8. Pt currently receiving continuous humidification. Posture/Positioning: WFL upright in chair. ORAL MECHANISM EXAMINATION Dentition: Pt has upper and lower dentures, good condition, well fitting. Pt has not worn dentures since 09/09/19 per her report. Pt in agreement to trial today for swallow evaluation. Pt reported no discomfort. Oral Hygiene: WFL, slight white coating on tongue however nsg and MD aware. Oral Structures: WFL Oral Function: WFL Strength: WFL Range of Motion: WFL Coordination: WFL Consistencies Tested: Thin liquids, puree, mechanical soft, regular/meltable (frederick crackers) Self-Feeding/Level of Assistance: Pt able to feed herself without difficulty. Oral Phase: WFL however pt requiring verbal cues for small bites, very thorough mastication, pacing rate of intake, and taking a drink every few bites to facilitate pharyngeal transit. Pt was able to manage small bites of regular however given h/o reduced PO intake for the past 3 months and lack of instrumental assessment will stay with soft solids only at this time. Pharyngeal Phase: Aspiration is not possible given total laryngectomy. Pt underwent Barium swallow 12/08/19 to rule out tracheoesophageal fistula. Unable to assess other pharyngeal functioning without instrumental assessment such as MBS given surgical history. Structural integrity unable to be assessed without endoscopy by ENT however as stated pt has reported she does not want to return to [facility] so this will likely not be completed. Esophageal Phase: Pt c/o feeling full frequently, with RD adjust tube feeding volumes per report. Pt/Caregiver/Staff Education: Anatomy/physiology changes with total laryngectomy, concerns for stasis, globus sensation and discomfort with solid foods given pharyngeal-esophageal structural and functional integrity unknown without instrumental assessment and limitations of bedside swallow evaluation. Assessment: Pt is a 79 year old woman s/p total laryngectomy 09/2019 for primary cancer of the right pyriform sinus who is currently receiving nutrition and hydration via PEG tube with some oral intake of pureed solids. With dentures present, pt demonstrating adequate oral skills for soft solids today with no c/o globus or discomfort at the pharyngeal/esophageal level. Fistula was ruled out via Barium swallow study yesterday and pt is therefore not at risk of aspiration. Given pts likely comfort care status, desire to discontinue cancer treatment, goals to return to some solid food intake, and ability to tolerate soft solids today with appropriate use of swallow strategies, recommend trial of mechanical soft solids with moist ground meat with direct supervision during meals to assess for discomfort. Pt and Dr. Castro in agreement with this plan. Pt would benefit from short term SNIPPER services to ensure ability to tolerate increased textures as well as for ongoing pt and family education. Rehab Potential: Good for goals stated. Short-Term Goals: 1. Pt will manage least restrictive diet with no s/s or reports of dysphagia when following safe swallow protocol 100% of the time with assistance. Time Frame: 1 week Time Frame: 2 week Long-Term Goals: 1.Pt will increase nutrition and hydration PO to 50% of total needs with safe and effective swallowing as evidenced by no reports or s/s discomfort or globus sensation and stable weight. Time Frame: 2 weeks Pt Goal: To be able to eat real food again PLAN Planned Treatment Interventions: Dysphagia treatment Frequency: 3x/week Intensity: 45 minutes Duration: 2 weeks Discharge Plan: When goals met or pt reaches maximum functional potential. SWALLOWING RECOMMENDATIONS Diet Consistency Order: Mechanical soft with MOIST, ground meat. Liquids: Thin liquids. May use cup or straw. Medication Delivery: Crushed via PEG tube. Level of Assistance: Pt able to feed herself with set up. Recommend direct supervision at this time to monitor for s/s discomfort. Strategies/Adaptations: Upper and Lower Dentures MUST be in for ALL PO intake. Up into chair/out of bed for all PO intake. Use a pillow behind back as needed Cue pt to take small bites and chew thoroughly before swallowing. Cue to take a drink every few bites of food Upright for 30 minutes post meals. Check mouth after meals. Ensure dentures are removed and cleaned every night and put back in in the morning. Charge Code: Clinical Swallow Evaluation CPT 37700
[2019-12-10 08:10] VITALS: BP 125/72; PULSE 96; RESP 16; TEMP 36.9; O2SAT 93
[2019-12-10 08:40] VITALS: TEMP 33
--- NOTE | 2019-12-10 09:20 | OTTR_ITS ---
Date of service: 12/10/19 Time of Service: 08:50 Occupational Therapy Notes Occupational Therapy Inpatient Treatment Note Date: 12/10/19 PRECAUTIONS: Fall, Standard SUBJECTIVE: Pt was sitting in chair when OT arrived. She was agreeable to OT session and had just finished working with Speech/Language Pathologist. OBJECTIVE: PAIN:no c/o pain BATHING: Performed prior to OT arrival with nursing. DRESSING: Performed prior to OT arrival with nursing. GROOMING: Sitting in chair with max (A) set up pt performed teeth brushing. She was able to (I) don and doff her dentures. She had just finished eating with a moderate amount of food underneath them. She was able to perform denture brushing with ideal technique and required vc for cleaning gums. Pt states that she does not normally brush out her mouth just her teeth. She was able to tolerate this well. She also required vc for brushing technique. She performed this (I) with a horizontal brushing technique which she was unable to get food out of teeth spaces. With a vertical technique she seemed to be able to achieve a better clean. OT will monitor this and progress as pt tolerates. ASSESSMENT/PLAN: Pt was able to demonstrate increased (I) in her teeth brushing routine with min vc provided. She is demonstrating increased (I) in her ADL routines and is receptive to education and training provided to her. OT will monitor pts response and progress accordingly. TREATMENT CODES/TIME: [id number], 20 minutes (08:10) Licha Richardson OTR/[facility]
[2019-12-10] MEDS: Furosemide 40 MG TAB PO ×2 (09:22→17:08)
[2019-12-10] MEDS: Metoclopramide 10 MG TAB 5 MG PO ×4 (09:22→20:51)
[2019-12-10] MEDS: Apixaban 5 MG TAB PO ×2 (09:22→20:50)
[2019-12-10] MEDS: guaiFENesin 200 MG/10 ML CUP 400 MG PO ×2 (09:22→20:51)
[2019-12-10] MEDS: Nystatin 500000 UNITS/5 ML SUSP 5ML CUP PO ×4 (09:22→20:51)
[2019-12-10] MEDS: Potassium Chloride Liquid 20 MEQ PKT PO ×2 (09:22→20:51)
[2019-12-10] MEDS: Metoprolol CR 25 MG TABCR 12.5 MG PO ×2 (09:22→20:51)
[2019-12-10 11:40] VITALS: BP 127/74; PULSE 100; RESP 18; TEMP 36.5; O2SAT 95
[2019-12-10] MEDS: Insulin Aspart 300 UNITS/3 ML PEN SC (12:13)
--- NOTE | 2019-12-10 12:47 | PT.INTREAT ---
Date of service: 12/10/19 Time of Service: 12:47 PT Notes Visit Reasons: RIGHT LOWER LOBE PNEUMONIA/TRACHEOSTOMY CARE 12/10/2019 SUBJECTIVE: Pt indicates that her stomach is full. She just had a protein tube feeding. OBJECTIVE: Pt seated in her chair. Agreeable to PT treatment. Her son his present. TRANSFERS Sit to stand: SBA Stand to sit: SBA GAIT Device: FWW Weight bearing: Full Assist: CGA Distance: 120' Deviation: 2 sit rest break. VITALS: 3 L via pedi mask to trach tube. 96-98% throughout. ASSESSMENT: Improvement in her vitals signs today with ambulation. She does require sit rest breaks throughout due to LE fatigue verse SOB. PLAN: Continue current POC. Continue to encourage ambulation to increase her functional mobility and independence. Treatment time: [id number] Connie Reynoso, MARCY
--- NOTE | 2019-12-10 14:52 | PDOC.CMPRO ---
- If Service Date Differs Date of service: 12/10/19 Time of Service: 14:52 Care Management Progress Note S/O: Lisa remains inpatient at this time and continues to work with PT/OT/RT as well. She is sitting up in her chair when CM entered the room, she remains pleasant in interaction. Per report, Lisa is advocating for returning home on Hospice, CM has discussed this with son Sb and daughter Trini and requested home health and hospice review with the patient and family again. If this is the case we will continue to plan team meeting for 12/12/2019 at 1100 in patients room to make a plan for discharge on Sunday. Lisa has improved her Abx are now complete she is able to demonstrate her own tracheotomy care. Lisa requested her daughter Jasmin not be permitted to visit or call into her room. Lisa requested this in her own hand writing. CM contacted Jasmin and Jasmin verbalized understanding and agreement to request. 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 Admitted to swing bed for PT/OT, trach and intermediate care. For essentially failure to thrive at home and difficulty managing trach. Lisa is now acute related to elevated white count, and pneumonia and need for IV antibiotics, which are now complete. P: CM coordinated team meeting for Sunday at 1100, to ensure continuity of care and equipment coordination. Lisa will be transported home via private vehicle with family at time of discharge, undetermined discharge plan at this time; [id number].
[2019-12-10 15:47] VITALS: BP 113/69; PULSE 98; RESP 17; TEMP 36.3; O2SAT 92
--- NOTE | 2019-12-10 18:00 | W.PM.PROGNOT ---
Date of Service Date of service: 12/10/19 Time of Service: 16:00 Assessment and Plan Assessment and plan (1) Pneumonia of right lower lobe due to infectious organism: Status: Resolved Assessment and plan: Completed antibiotics. Barium swallow ruled out a tracheoesophageal fistula - aspiration pneumonia virtually impossible. (2) UTI (urinary tract infection): Status: Resolved Assessment and plan: Due to Klebsiella pneumonia, present on admission. Completed antibiotics. (3) Adynamic ileus: Status: Resolved Assessment and plan: Clinically resolved. Did have some abdominal distention with resumption of diet, but overall much better since starting reglan. Continue reglan AC/HS. (4) Anxiety: Status: Chronic Assessment and plan: Seems to be controlled with a more measured approach to suctioning. 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 No evidence of tracheoesophageal fistula on barium swallow. (6) Tracheostomy care: Status: Acute Assessment and plan: Suctioning only prn, per PT. (7) Discharge planning issues: Status: Acute Assessment and plan: Full code. Likely discharge home on hospice over the weekend or on Sunday. (8) DVT prophylaxis: Status: Acute Assessment and plan: On therapeutic apixaban. Subjective Subjective Interval history since last seen: Denies dizziness, chest pain, shortness of breath, nausea. Had abdominal distention after lunch, which resolved immediately after having a BM. Overall, feels better. Plan is to go home on hospice over the or Sunday. Exam Narrative Exam Narrative: General: Very pleasant elderly female, A&Ox3, sitting comfortably in a chair HEENT: EOMI, MMM, Trach with deviation to the left, patent Heart: RRR, no m/r/g Lungs: CTAB Abdomen: soft, nontender, mildly distended, + PEG, + hypoactive bowel sounds Extremities: trace BLE edema, chronic venous stasis dermatitis Objective Objective Clinical Data: Vital Signs Temperature 36.3 C L 12/10/19 15:47 Temperature Source Tympanic 12/10/19 15:47 Pulse 98 H 12/10/19 15:47 Pulse Rhythm Regular 12/10/19 10:21 Respiratory Rate 17 12/10/19 15:47 Respiratory Effort Non-Labored 12/10/19 10:21 Respiratory Depth Normal 12/10/19 10:21 Respiratory Pattern Normal 12/10/19 10:21 Blood Pressure 113/69 12/10/19 15:47 Blood Pressure Mean 69 12/07/19 16:32 Blood Pressure Position Sitting 12/05/19 16:10 Pulse Oximetry 92 L 12/10/19 15:47 Oxygen Delivery Method Room Air 12/10/19 15:47 Oxygen Flow Rate 0 12/10/19 15:47 Fraction of Inspired Oxygen (FIO2) 21 12/10/19 08:40 Pain Level 0 12/10/19 15:47 Comment 12/09/19 04:10 Intake & Output 12/09/19 12/10/19 12/10/19 23:59 11:59 23:59 Intake Total 410 / 990 1310 / 1560 250 / 1560 Balance 410 / 240 1310 / 1560 250 / 1560 Weight 84.822 kg Intake: IV 50 / 150 500 / 500 Oral 360 / 840 560 / 810 250 / 810 Intake, Tube Feeding Amount 250 / 250 Other: Urine Color Yellow Yellow Urine Appearance Clear Clear Urine Odor None None Stool Occult Blood Negative Stool Size Small Small Stool Characteristics Liquid Soft Brown Brown Voiding Methods Bedside Commode Bedside Commode Diaper Incontinent Incontinent Laboratory Results WBC 7.76 k/cumm (4.4-10.8) 12/08/19 06:25 RBC 3.07 m/cumm (4.00-5.20) L 12/08/19 06:25 Hgb 8.5 g/dL (12.0-15.5) L 12/08/19 06:25 Hct 27.8 % (36.0-46.0) L 12/08/19 06:25 MCV 90.6 fL (80-95) 12/08/19 06:25 MCH 27.7 pg (27.0-33.0) 12/08/19 06:25 MCHC 30.6 g/dL (32.0-36.0) L 12/08/19 06:25 RDW 15.7 % (11.7-14.6) H 12/08/19 06:25 Plt Count 433 x1000/uL (130-400) H 12/08/19 06:25 MPV 9.3 fL (8.0-11.0) 12/08/19 06:25 Immature Gran % 0.0 % 12/08/19 06:25 Neutrophils % 71.0 12/08/19 06:25 Band Neutrophils % 1.0 % 12/08/19 06:25 Lymphocytes % 15.0 12/08/19 06:25 Atypical Lymphs % 3 12/08/19 06:25 Monocytes % 7.0 12/08/19 06:25 Eosinophils % 3.0 12/08/19 06:25 Basophils % 0.0 12/08/19 06:25 Absolute Neutrophils 5.59 k/cumm (1.2-6.7) 12/08/19 06:25 Absolute Lymphocytes 1.40 k/cumm (1.2-3.4) 12/08/19 06:25 Absolute Monocytes 0.54 k/cumm (0.11-0.7) 12/08/19 06:25 Absolute Eosinophils 0.23 k/cumm (0.0-0.7) 12/08/19 06:25 Absolute Basophils 0.00 k/cumm (0.0-0.2) 12/08/19 06:25 Differential Comment Manual differential 12/08/19 06:25 RBC Morphology See below 12/08/19 06:25 Hypochromasia 2+ 12/08/19 06:25 Anisocytosis 1+ 12/07/19 06:20 Sodium 138 mmol/L (136-145) 12/09/19 06:11 Potassium 3.9 mmol/L (3.5-5.1) 12/09/19 06:11 Chloride 104 mmol/L (98-107) 12/09/19 06:11 Carbon Dioxide 24.2 mmol/L (21.0-32.0) 12/09/19 06:11 Anion Gap 9.8 mmol/L (3-11) 12/09/19 06:11 BUN 11 mg/dL (7-18) 12/09/19 06:11 Creatinine 0.69 mg/dL (0.55-1.02) 12/09/19 06:11 Estimated GFR/1.73 m2 >= 60.00 (mL/min/1.73m2) 12/09/19 06:11 Glucose 118 mg/dL (74-106) H 12/09/19 06:11 Calcium 8.3 mg/dL (8.5-10.1) L 12/09/19 06:11 Magnesium 1.8 mg/dL (1.8-2.4) 12/09/19 06:11 Procalcitonin < 0.1 ng/mL 12/09/19 06:11
[2019-12-10 19:42] VITALS: BP 116/70; PULSE 102; RESP 18; TEMP 36.2; O2SAT 93
[2019-12-10 23:44] VITALS: BP 159/87; PULSE 90; RESP 17; TEMP 36.7; O2SAT 94
[2019-12-11] VITALS (8 sets, daily range): BP systolic 125–153; BP diastolic 68–83; PULSE 90–107; RESP 17–19; TEMP 34–36.8; O2SAT 92–95
--- NOTE | 2019-12-11 08:10 | OT.INDS ---
Date of service: 12/11/19 Time of Service: 07:40 Occupational Therapy Notes Occupational Therapy Inpatient Discharge Summary Date: 12/11/19 Dates of Service: 12/05/19-12/11/19 Referring Doctor:Gisell Aguilera NP OT Orders: Non-Urgent Precautions: Fall, Standard, Full code PATIENT PROFILE/ADMITTING DIAGNOSIS: Pt is a 79 year old female currently under [facility] [place] [facility] status with a dx of hypokalemia, anxiety, leukocytosis, COPD, pharynogoesphageal dysphagia, (R) vocal cord cancer, pulmonary embolus, HTN after a 79 day stay at [facility] which she was discharged on 11/27/19.She was seen in the ED on 12/02/19 for transition from home health care to hospice, Deficient knowledge of tracheostomy home care and failure to thrive in community setting at this time. Past Medical History- refer to pts EMR. Social History/Home Situation: Lisa lives in her own home and her family provides supportive care. She has three children Jasmin, Trini and Abdulaziz who all provide support at home. Lisa was recently discharged from [facility] on 11/27/2019 status post trach after surgical removal of her thyroid and Larnx. She states that she is (I) at her baseline in terms of ADLs/IADLs. She has a walk in shower with a seat per pt report. She states that she did not need (A) but was provided (A) from her family as needed. She communicates currently with a white board which seems to be most efficient for her at this time. She states that she is (I) with eating. SUBJECTIVE: Pt was sitting in chair when OT arrived. She was agreeable to OT session and she feels that she is pretty (I) at this time. OBJECTIVE: General Observation: Pleasant and able to answer questions appropriately with use of white board. Mental Status: A&Ox3 Pain: no c/o pain ROM: RUE AROM WFL L UE AROM WFL STRENGTH: RUE Shoulder flexion 3/5, bicep 4/5, tricep 4/5, patient relations coordinator is symmetrical LUE Shoulder flexion 4/5, bicep 4/5, tricep 4/5, patient relations coordinator is symmetrical FUNCTIONAL MOBILITY/ADLS: Sit -stand (I) Stand- sit (S) BATHING sitting in chair Bathing UE (I) with washing hands, face, abdomen with vc for under abdomen, (I) (B) LE and pt denies feet. DRESSING (I) [facility] gown and min (A) (B) socks sitting in chair EATING (I) with food to mouth BALANCE: Static sitting Normal Dynamic Sitting Normal Static Standing Normal Dynamic Standing Good ASSESSMENT: Patient is a 79-year-old female referred to occupational therapy services with diagnosis of [facility] bed 1 status with a dx of hypokalemia, anxiety, leukocytosis, COPD, pharynogoesphageal dysphagia, (R) vocal cord cancer, pulmonary embolus, HTN after a 79 day stay at [facility] which she was discharged on 11/27/19.She was seen in the ED on 12/02/19 for transition from home health care to hospice, Deficient knowledge of tracheostomy home care and failure to thrive in community setting at this time. Pt was seen for 4 skilled OT sessions. She has demonstrated increased (I) in her ADL/IADL routines and requires vc at times for performance. Pt states that she does not feel that she needs a lot of (A) at this time. She has demonstrated increased (I) in her bathing, dressing and teeth brushing at this time. Pt feels that she is (I) at this time and able to perform with increased (I). GOALS 1. Transfers with FWW (S) 2. Dressing sitting in chair (I) with UE/LE dressing 3. Bathing sitting in chair (I) with UE/ min (A) LE, pt will be able to wash face and (B) UE standing at sink 4. Toileting on toilet min (A) 5. Eating (I) PLAN OF CARE/TREATMENT PLAN: Discharge from skilled OT services. DISCHARGE RECOMMENDATIONS Home with HH services vs. home with hospice care per pts chart. TREATMENT TIME/MINUTES/CODES [id number], 25 minutes (07:40) SPENCER Maxwell/[facility]
[2019-12-11] MEDS: Metoprolol CR 25 MG TABCR 12.5 MG PO ×2 (10:35→20:10)
--- NOTE | 2019-12-11 10:37 | PDOC.CMPRO ---
Care Management Progress Note S/O: Lisa remains inpatient at this time and continues to work well with PT/OT/RT. Anticipate Lisa will return home with resumption of home health support. Team meeting planned for 12/12/2019 at 1100 in Lisa's room to create discharge plan anticipated for 12/13/19. Lisa continues to demonstrate her own tracheotomy care, CM continues to follow. Lisa requested her daughter Jasmin not be permitted to visit or call into her room. Lisa requested this in her own hand writing. CM contacted Jasmin and Jasmin verbalized understanding and agreement to request. A: Lisa is an 79-year-old female status post laryngectomy related to cancer, originally admitted to [facility] bed 12/03/29 for PT/OT, trach and senior living care for failure to thrive at home and difficulty managing trach. Lisa transitioned to acute status 12/05/19 related to elevated white count, pneumonia and IV antibiotics. P: CM coordinated team meeting for 12/12/19 at 1100, to ensure continuity of care and equipment coordination. Lisa will be transported home via private vehicle with family at time of discharge, anticipate Lisa will return home with resumption of home health support and DME equipment including tube feeds and trach supplies through [facility] [place].
[2019-12-11] MEDS: Furosemide 40 MG TAB PO ×3 (10:39→21:33)
[2019-12-11] MEDS: Apixaban 5 MG TAB PO ×2 (10:40→20:10)
[2019-12-11] MEDS: Metoclopramide 10 MG TAB 5 MG PO ×3 (10:52→21:33)
[2019-12-11] MEDS: Potassium Chloride Liquid 20 MEQ PKT PO ×2 (10:53→20:10)
[2019-12-11] MEDS: guaiFENesin 200 MG/10 ML CUP 400 MG PO ×2 (10:54→20:11)
[2019-12-11] MEDS: Nystatin 500000 UNITS/5 ML SUSP 5ML CUP PO ×4 (10:54→20:10)
--- NOTE | 2019-12-11 11:29 | W.NUTRFU ---
Date of service: 12/11/19 Time of Service: 11:29 Nutritional Follow up NOTE: Lisa has been transitioned to minced and moist diet per VOICE DATA COMMUNICATIONS ENGINEER recommendations and tolerating tube feeding BID as ordered. Per nursing, son (MAYUR) wanted to know if Lisa should be on a diabetic friendly tube feeding. Met with Lisa after son had left and explained that Nutrin 1.5 is diabetic friendly and that her blood sugars were well controlled with current tube feeding regime. Called and left message for Mayur to call me back if has questions. Lisa also asked if PEG could be removed and we discussed that when she is able to meet her nutrient needs by mouth, PEG can be removed as determined by her physician. At this time, Lisa is able to meet her nutrient and fluid needs with meals and supplements and I would recommend removing PEG if continues to be able to do so for the next 30 days. Time Spent in Nutritional Counseling and Treatment: 15 min spent face to face
[2019-12-11] MEDS: Insulin Aspart 300 UNITS/3 ML PEN SC (17:16)
--- NOTE | 2019-12-11 18:00 | DI.RAD_ITS ---
EXAM: XR PORTABLE CHEST AP CLINICAL HISTORY: CHF vs worsening PNA TECHNIQUE COMPARISON: XR CHEST 2V PA LATERAL from 12/04/2019 FINDINGS: Portable AP view of the chest was obtained. Heart appears mildly enlarged although this may be due i n part to the AP technique. There are pulmonary interstitial radiodensities consistent with fibrotic changes of the lungs. Previously described suspected right basilar pneumonia seen on 12/04/2019 alethea ears to have resolved. Tracheotomy tube again noted in position. IMPRESSION: No evidence of acute process. Resolution of previously noted right basilar infiltrate.
--- NOTE | 2019-12-11 18:15 | DI.VRAD_ITS ---
PROCEDURE INFORMATION: Exam: XR Chest, 1 View Exam date and time: 12/11/2019 5:51 PM Age: 79 years old Clinical indication: Other: Chf vs pna TECHNIQUE: Imaging protocol: XR of the chest Views: 1 view. COMPARISON: XR PORTABLE CHEST AP 12/06/2019 1:01 PM FINDINGS: Tubes, catheters and devices: Tracheostomy in place. Lungs: Prominent, indistinct pulmonary vasculature. No focal consolidation. Pleural space: Unremarkable. No pleural effusion. No pneumothorax. Heart/Mediastinum: Stable enlarged cardiomediastinal silhouette. Bones/joints: Unremarkable. Soft tissues: Surgical clips about the lower neck. IMPRESSION: Prominent, indistinct pulmonary vasculature likely represents edema. No focal consolidation. Dictated and Authenticated by: Bud Robert MD. Ordering:DYAN Beckham MD
--- NOTE | 2019-12-11 18:22 | W.PM.PROGNOT ---
Date of Service Date of service: 12/11/19 Time of Service: 16:45 Assessment and Plan Assessment and plan (1) Pneumonia of right lower lobe due to infectious organism: Status: Resolved Assessment and plan: Completed antibiotics. Today's worsening respiratory status has to do with fluid overload and will be treated with IV lasix. Barium swallow ruled out a tracheoesophageal fistula - aspiration pneumonia virtually impossible. (2) UTI (urinary tract infection): Status: Resolved Assessment and plan: Due to Klebsiella pneumonia, present on admission. Completed antibiotics. (3) Adynamic ileus: Status: Resolved Assessment and plan: Clinically resolved. Continue reglan AC/HS. (4) Anxiety: Status: Chronic Assessment and plan: Seems to be controlled with a more measured approach to suctioning. 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 No evidence of tracheoesophageal fistula on barium swallow. (6) Tracheostomy care: Status: Acute Assessment and plan: Suctioning only prn, per PT. (7) Discharge planning issues: Status: Acute Assessment and plan: Full code. Disposition is still unclear. The patient will require myAIRVO on discharge, as there is evidence that it improves secretion clearance, decreases number of exacerbations of pulmonary disease and increases time to first exacerbation. It also improves pulmonary function and quality of life. Without the my AIRVO system, this patient has a high likelihood of an increase in acute exacerbations of her disease. Prior therapies have failed to do so for this patient. (8) DVT prophylaxis: Status: Acute Assessment and plan: On therapeutic apixaban. Subjective Subjective Interval history since last seen: Ms Anderson and her family state that she sounds more rattly today. She denies dizziness, chest pain, shortness of breath,nausea, abdominal pain. Exam Narrative Exam Narrative: General: Very pleasant elderly female, A&Ox3, sitting comfortably in a chair HEENT: EOMI, MMM, Trach with deviation to the left, patent Heart: RRR, no m/r/g Lungs: Rhonchi and rales B Abdomen: soft, nontender, mildly distended, + PEG, + hypoactive bowel sounds Extremities: trace BLE edema, chronic venous stasis dermatitis Objective Objective Clinical Data: Vital Signs Temperature 36.5 C 12/11/19 15:35 Temperature Source Tympanic 12/11/19 15:35 Pulse 99 H 12/11/19 15:35 Pulse Rhythm Regular 12/11/19 17:45 Respiratory Rate 18 12/11/19 15:35 Respiratory Effort Non-Labored 12/11/19 17:45 Respiratory Depth Normal 12/11/19 17:45 Respiratory Pattern Normal 12/11/19 17:45 Blood Pressure 153/68 H 12/11/19 15:35 Blood Pressure Mean 69 12/07/19 16:32 Blood Pressure Position Sitting 12/05/19 16:10 Pulse Oximetry 95 12/11/19 15:51 Oxygen Delivery Method Room Air 12/11/19 15:51 Oxygen Flow Rate 0 12/11/19 15:51 Fraction of Inspired Oxygen (FIO2) 21 12/11/19 15:16 Pain Level 0 12/11/19 15:35 Comment 12/09/19 04:10 Intake & Output 12/10/19 12/11/19 12/11/19 23:59 11:59 23:59 Intake Total 370 / 1680 360 / 960 600 / 960 Output Total 200 / 300 100 / 300 Balance 370 / 1680 160 / 660 500 / 660 Weight 84.4 kg Intake: Oral 370 / 930 360 / 960 600 / 960 Output: Urine 200 / 300 100 / 300 Other: Urine Color Yellow Yellow Urine Appearance Clear Clear Clear Stool Size Small Small Small Stool Characteristics Soft Soft Soft Brown Formed Brown Voiding Methods Diaper Incontinent Bedside Commode Incontinent Laboratory Results WBC 7.76 k/cumm (4.4-10.8) 12/08/19 06:25 RBC 3.07 m/cumm (4.00-5.20) L 12/08/19 06:25 Hgb 8.5 g/dL (12.0-15.5) L 12/08/19 06:25 Hct 27.8 % (36.0-46.0) L 12/08/19 06:25 MCV 90.6 fL (80-95) 12/08/19 06:25 MCH 27.7 pg (27.0-33.0) 12/08/19 06:25 MCHC 30.6 g/dL (32.0-36.0) L 12/08/19 06:25 RDW 15.7 % (11.7-14.6) H 12/08/19 06:25 Plt Count 433 x1000/uL (130-400) H 12/08/19 06:25 MPV 9.3 fL (8.0-11.0) 12/08/19 06:25 Immature Gran % 0.0 % 12/08/19 06:25 Neutrophils % 71.0 12/08/19 06:25 Band Neutrophils % 1.0 % 12/08/19 06:25 Lymphocytes % 15.0 12/08/19 06:25 Atypical Lymphs % 3 12/08/19 06:25 Monocytes % 7.0 12/08/19 06:25 Eosinophils % 3.0 12/08/19 06:25 Basophils % 0.0 12/08/19 06:25 Absolute Neutrophils 5.59 k/cumm (1.2-6.7) 12/08/19 06:25 Absolute Lymphocytes 1.40 k/cumm (1.2-3.4) 12/08/19 06:25 Absolute Monocytes 0.54 k/cumm (0.11-0.7) 12/08/19 06:25 Absolute Eosinophils 0.23 k/cumm (0.0-0.7) 12/08/19 06:25 Absolute Basophils 0.00 k/cumm (0.0-0.2) 12/08/19 06:25 Differential Comment Manual differential 12/08/19 06:25 RBC Morphology See below 12/08/19 06:25 Hypochromasia 2+ 12/08/19 06:25 Anisocytosis 1+ 12/07/19 06:20 Sodium 138 mmol/L (136-145) 12/09/19 06:11 Potassium 3.9 mmol/L (3.5-5.1) 12/09/19 06:11 Chloride 104 mmol/L (98-107) 12/09/19 06:11 Carbon Dioxide 24.2 mmol/L (21.0-32.0) 12/09/19 06:11 Anion Gap 9.8 mmol/L (3-11) 12/09/19 06:11 BUN 11 mg/dL (7-18) 12/09/19 06:11 Creatinine 0.69 mg/dL (0.55-1.02) 12/09/19 06:11 Estimated GFR/1.73 m2 >= 60.00 (mL/min/1.73m2) 12/09/19 06:11 Glucose 118 mg/dL (74-106) H 12/09/19 06:11 Calcium 8.3 mg/dL (8.5-10.1) L 12/09/19 06:11 Magnesium 1.8 mg/dL (1.8-2.4) 12/09/19 06:11 Procalcitonin < 0.1 ng/mL 12/09/19 06:11 CXR: Prominent, indistinct pulmonary vasculature likely represents edema. No focal consolidation.
[2019-12-12] VITALS (9 sets, daily range): BP systolic 126–137; BP diastolic 70–76; PULSE 83–96; RESP 17–20; TEMP 34–36.7; O2SAT 92–95
[2019-12-12 08:11] LABS: Anion Gap 10.1 mmol/L (3-11); BUN 15 mg/dL (7-18); CO2 26.9 mmol/L (21.0-32.0); CREATININE 0.78 mg/dL (0.55-1.02); Chloride 102 mmol/L (98-107); Glucose 138 mg/dL (74-106); Magnesium 1.7 mg/dL (1.8-2.4); Potassium 3.8 mmol/L (3.5-5.1); Sodium 139 mmol/L (136-145)
[2019-12-12] MEDS: guaiFENesin 200 MG/10 ML CUP 400 MG PO ×2 (08:16→20:31)
[2019-12-12] MEDS: Metoclopramide 10 MG TAB 5 MG PO ×4 (08:18→21:44)
[2019-12-12] MEDS: Apixaban 5 MG TAB PO ×2 (08:19→20:31)
[2019-12-12] MEDS: Metoprolol CR 25 MG TABCR 12.5 MG PO ×2 (08:19→20:32)
[2019-12-12] MEDS: Nystatin 500000 UNITS/5 ML SUSP 5ML CUP PO ×4 (09:59→20:32)
--- NOTE | 2019-12-12 10:50 | W.SPEECHPG ---
Date of service: 12/12/19 Time of Service: 10:50 Speech Therpy Note Note: Speech-Language/Swallowing Pathology Dysphagia Daily Treatment Note Medical Diagnosis: Tracheostomy Hemorrhage Therapy Diagnosis: Dysphagia Unspecified Current Level of Care: Medical Subjective: Pt was seated in her chair upon arrival, son and daughter present. Medical team in midway through session for care plan meeting. Swallow Treatment Techniques: Instruction provided regarding appropriate soft textures to facilitate pharyngeal transit, instruction provided regarding safe swallow strategies of small bites, thorough mastication, alternating liquids every few bites of solids, pacing rate of intake. Pt currently managing mechanical soft/minced and moist textures with no s/s discomfort or reports of globus sensation when utilizing the above strategies. Pt/Caregiver/Staff Education: Education provided to pt, family and medical team regarding swallowing status, plan of care and goals. Education also provided regarding Electolarynx for communication. [place] [facility] [place] of equipment. RESPIRATORY SUPPORT TECHNICIAN to f/u. Assessment: Pt is making progress with goals and continues state she wants to return home. Recommend home health RESPIRATORY SUPPORT TECHNICIAN upon return home for further dysphagia treatment and family training as well as instruction in use of electrolarynx once it arrives. Treatment Plan: F/U with pt on Sunday Charge Code: CPT 02378
--- NOTE | 2019-12-12 11:07 | POCOE_ITS ---
Date of service: 12/12/19 Time of Service: 11:07 History of Present Illness History of Present Illness Chief Complaint: ingrowing toenails Narrative: 79-year-old female well-known to me from office based practice is seen at bedside with complaints of tender elongated and ingrowing toenails. She indicates she is been hospitalized for the last 4 months and her feet are a mass in her opinion. She communicates effectively by writing in her head as she has a tracheostomy in place status post laryngectomy secondary to cancer [facility] Medical History Adynamic ileus (Resolved) Benign paroxysmal vertigo Benign paroxysmal vertigo, unspecified ear (Resolved) Cataract (Resolved) O.U 02/24/14; Dr. Martin left extraction 03/10/14; Dr. Martin right extraction Cellulitis (Resolved) 07/31/16 both lower extremity Cerebral arteriovenous malformation (Chronic) Cerebral vascular malformation Cerebrovascular accident (CVA) (Chronic 01/20/16) seen on previous CT Scans 2015 Decreased muscle tone (Chronic) ANAL SPINCTER Depression Depressive disorder (Chronic) Dysphagia (Chronic 01/01/18) Essential hypertension (Chronic 10/31/13) Hip pain (Chronic) bilateral 2014 - mild arthritis right History of tobacco use (Resolved) 2 ppd; quit in 2000 Hyperlipidemia Hyperlipidemia (Chronic 04/15/13) Hypertension Low back pain (Chronic 03/04/06) L 2-3 disc narrowing. L hip-mild acetabular spurring 2014 - severe arthritis at facet joints Lumbago Oral ulcer (Resolved) 12/07/16 Peripheral edema (Chronic 07/31/16) Peripheral venous insufficiency (Chronic 12/03/08) edema Polyp of colon (Resolved) colonoscopy of 01/09/11-multiple polyps at multiple locations. 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 Very hard to regulate and cannot afford alternatives. Understands the risks. Repeat again - PE. back on anticoagualtion Seizure (Resolved) ? of seizures; on medication for time; now off w/no change Stenosis of carotid artery (Chronic 01/20/16) carotid us 01/18 TMJ (temporomandibular joint disorder) (Resolved) right Tracheostomy hemorrhage (Acute) Transient ischemic attack (Resolved 08/04/03) POS MRI R TEMPORAL LOBE. NEG ECHO 2000 Urinary incontinence (Chronic 11/10/14) Vaginal lesion (Resolved) 03/22/16 Venous insufficiency Visual disturbance (Resolved) etiology unclear per -exam of 03/14/11 Vitamin D deficiency Vitamin D deficiency (Chronic 03/11/09) Vulvovaginitis (Resolved) Surgical History Extraction of cataract 02/24/14; LEFT EYE 03/10/14; RIGHT EYE History of bilateral tubal ligation (Resolved) Ligation of fallopian tube Family History Mother , 85 Vaginal cancer Father , 74 Heart disease COPD (chronic obstructive pulmonary disease) Sister , 63 Heart disease ASHD/CHF Lung cancer Maternal Grandmother Heart disease Paternal Grandmother Diabetes Son , 40 Substance abuse Heart disease Sister No problems noted. Sister No problems noted. Son RA (rheumatoid arthritis) Daughter No problems noted. Daughter No problems noted. Paternal Grandfather , 80 No problems noted. Social History Smoking/Tobacco Use Status: Former Tobacco Use Quit Date: 06/05/01 Second Hand Exposure: Yes Alcohol Intake: former Drug use: Never Substance use type: does not use Caregiver/Support person: No Household members: none Housing: house Do you need help understanding health information?: Rarely Pets and animals: No Sexually active: No Current gender identity: female What is your relationship status?: How often do you talk on the phone with friends or family?: decline to answer How often do you get together with friends or relatives?: once per week How often do you attend roman catholic or pentecostal services?: decline to answer Do you belong to any clubs or organized social groups?: no Panel score (0-1 are the most socially isolated patients): 0 What type of physical activity do you participate in: decline to answer Duration: decline to answer Frequency: decline to answer Bethany/Scientology: Episcopal Special bethany needs: No Seatbelt use: always Helmet use: No Drive intox or ride w/intox tank wagon driver: No Do you feel safe at home: Yes Do you feel safe in your relationship?: Yes Exam Narrative Exam Narrative: 79-year-old female seen at bedside, recognizes me immediately and seems relieved that she is going to get her feet treated this morning. Her son and daughter were present. Podiatric exam: DP and PT pulses are manually palpable at the ankles plus 1 out of 4 bilaterally capillary refill is under 3 seconds to all toes there was no peripheral edema at the moment. Chronic venous stasis disease is appreciated but there is no active sign of infection. No cellulitis is noted calves are soft to palpation. She has had compression stockings recommended to her previously but she has difficulty wearing them, finds them generally too tight and refuses to comply with continued utilization. Her skin is grossly intact, thinned age appropriately. Her toenails have fairly normal thickness but a high degree of incurvation. Low-grade induration seen along the medial lateral borders of both great toes but there is no active drainage or signs of infection. Mild periungual tenderness is appreciated. No active signs of tinea. Muscle groups appear to be 5 out of 5 bilaterally although somewhat deconditioned Skeletal exam appeared grossly benign no gross deformities heat or swellings noted. Pes planus foot type noted. Neurologically: Toes were downgoing did not appreciate any focal deficits. Impressions: Symptomatic onychocryptosis Venous stasis disease bilaterally Plan: Atraumatically debrided all nails thoroughly and atraumatically to patient tolerance. Marked relief of sensitivity was obtained and noted upon debridement. She does need to wear compression stockings in an effort to prevent worsening of the venous stasis disease and/or recurrent cellulitis. Tubigrip stockings at least will give some compression and I did indicate that she can wear to light layers if needed which will increase the general compression that one layer alone would provide. All questions were answered in detail. I will have my office make a follow-up appointment to see her in approximately 3 months Thank you for the consult. Results Last Vital Signs Temp 36.5 C 12/12/19 07:39 Pulse 88 12/12/19 07:39 Resp 18 12/12/19 07:39 BP 137/76 12/12/19 07:39 Pulse Ox 92 L 12/12/19 09:46 Labs Result diagrams: 12/08/19 06:25 12/12/19 07:50 Labs: Laboratory Results - last 24 hr 12/12/19 07:50 Sodium 139 Potassium 3.8 Chloride 102 Carbon Dioxide 26.9 Anion Gap 10.1 BUN 15 Creatinine 0.78 Estimated GFR/1.73 m2 >= 60.00 Glucose 138 H Calcium 9.0 Magnesium 1.7 L
[2019-12-12] MEDS: Magnesium Oxide 400 MG TAB PO ×2 (12:12→20:32)
[2019-12-12] MEDS: Furosemide 40 MG TAB PO ×2 (12:12→16:19)
--- NOTE | 2019-12-12 13:11 | PCPN_ITS ---
Date of service: 12/12/19 Time of Service: 11:11 Assessment and Plan Assessment and plan (1) Tracheostomy hemorrhage: Status: Acute (2) Pneumonia of right lower lobe due to infectious organism: Status: Resolved (3) Tracheostomy care: Status: Acute (4) Anxiety: Status: Chronic (5) Discharge planning issues: Status: Acute Assessment and plan: Lisa is an 79-year-old woman with recent surgery for neck cancer with protracted course of recovery. At this time she states that she would like to get most of her care locally and does not want to return to [facility]. Her present PPS is 50%. Her children Abdulaziz and Trini will be delivering much of her care. Everyone has a better handle on what she needs at home as well as the supplies to get this. With Abdulaziz and Trini in the room I did complete a CO LST form she is a DNR/DNI. She does want to keep her delivery system for her oxygenation which is on her trach at this point. She will go home with home health but does not want hospice at this time. Although she will not be undergoing any further treatment for her neck cancer, the hope is that she will do well now that she has the proper support. Respiratory, speech, home health, chronic spiritual care coordinator, vendors, and care m anagement all continue to be involved and will be after discharge Total time spent 95 minutes at the bedside at family meeting. Subjective Subjective Interval history since last seen: I am meeting with Lisa, family, case management, chronic spiritual care coordinator from [place], home health, and [facility] vendors, respiratory therapy. We met to discuss Lisa's return to home. We specifically talked about needed equipment, and how she would be cared for. Respiratory therapy was kind incomplete enough to have a book for Lisa to take with her so that she would have all necessary numbers and information regarding her care. Lisa was very clear that she does not want to return to [facility]. She would like to have all of her care local. She has had a protracted course due to her neck cancer. She spent probably close to 100 days out of the last 110 hospitalized. Both she and family have a better handle on what needs to be done and how her care needs to be delivered. She has recently had a barium swallow which did not show any fistula. Due to the surgery that she has had she is not able to aspirate. She does have a feeding tube, speech has been working with her regarding swallowing. There is hopes that most of the time she will be able to swallow her food rather than need to use the feeding tube. Lisa is very cognitively aware and intact. She also wants to please her family as much as possible. Exam Narrative Exam Narrative: Laboratory Tests 12/14/19 12/14/19 06:00 06:00 Hgb 9.8 L Potassium 3.6 Creatinine 0.81 Const General: cooperative, comfortable, frail appearing and well hydrated Nutritional Appearance: average body habitus Orientation: oriented x3 Limitations: other limitations (sleepy at times) Neck Other: recent surgery, tracheostomy in place Resp Effort & Inspection: normal respiratory effort Auscultation: bronchial breath sounds Cardio Rate: regular rate Rhythm: abnormal rhythm Heart Sounds: murmur GI Other: feeding tube in place Psych Attitude: cooperative Thought Process: normal Insight: fair Judgment: fair Objective Objective Clinical Data: Abnormal lab results 12/12/19 Range/Units 07:50 Glucose 138 H (74-106) mg/dL Magnesium 1.7 L (1.8-2.4) mg/dL Vital Signs Temperature 97.7 F 12/12/19 07:39 Temperature Source Tympanic 12/12/19 07:39 Pulse 88 12/12/19 07:39 Pulse Rhythm Regular 12/12/19 00:10 Respiratory Rate 18 12/12/19 07:39 Respiratory Effort Non-Labored 12/12/19 00:10 Respiratory Depth Normal 12/12/19 00:10 Respiratory Pattern Normal 12/12/19 00:10 Blood Pressure 137/76 12/12/19 07:39 Blood Pressure Mean 69 12/07/19 16:32 Blood Pressure Position Sitting 12/05/19 16:10 Pulse Oximetry 92 L 12/12/19 09:46 Oxygen Delivery Method Room Air 12/12/19 09:46 Oxygen Flow Rate 0 12/12/19 09:46 Fraction of Inspired Oxygen (FIO2) 21 12/12/19 09:46 Pain Level 0 12/12/19 07:39 Comment 12/09/19 04:10 Intake & Output 12/11/19 12/12/19 12/12/19 23:59 11:59 23:59 Intake Total 660 / 1020 240 / 240 Output Total 100 / 300 50 / 50 Balance 560 / 720 190 / 190 Weight 185 lb 3.013 oz Intake: IV 0 / 0 Oral 660 / 1020 240 / 240 Output: Urine 100 / 300 50 / 50 Other: Urine Color Yellow Yellow Urine Appearance Clear Clear Urine Odor Normal Normal Comment large incont breif and void in bedside commode Stool Size Small Moderate Stool Characteristics Soft Soft Formed Formed Brown Brown Voiding Methods Incontinent Bedside Commode Incontinent Laboratory Results WBC 7.76 k/cumm (4.4-10.8) 12/08/19 06:25 RBC 3.07 m/cumm (4.00-5.20) L 12/08/19 06:25 Hgb 8.5 g/dL (12.0-15.5) L 12/08/19 06:25 Hct 27.8 % (36.0-46.0) L 12/08/19 06:25 MCV 90.6 fL (80-95) 12/08/19 06:25 MCH 27.7 pg (27.0-33.0) 12/08/19 06:25 MCHC 30.6 g/dL (32.0-36.0) L 12/08/19 06:25 RDW 15.7 % (11.7-14.6) H 12/08/19 06:25 Plt Count 433 x1000/uL (130-400) H 12/08/19 06:25 MPV 9.3 fL (8.0-11.0) 12/08/19 06:25 Immature Gran % 0.0 % 12/08/19 06:25 Neutrophils % 71.0 12/08/19 06:25 Band Neutrophils % 1.0 % 12/08/19 06:25 Lymphocytes % 15.0 12/08/19 06:25 Atypical Lymphs % 3 12/08/19 06:25 Monocytes % 7.0 12/08/19 06:25 Eosinophils % 3.0 12/08/19 06:25 Basophils % 0.0 12/08/19 06:25 Absolute Neutrophils 5.59 k/cumm (1.2-6.7) 12/08/19 06:25 Absolute Lymphocytes 1.40 k/cumm (1.2-3.4) 12/08/19 06:25 Absolute Monocytes 0.54 k/cumm (0.11-0.7) 12/08/19 06:25 Absolute Eosinophils 0.23 k/cumm (0.0-0.7) 12/08/19 06:25 Absolute Basophils 0.00 k/cumm (0.0-0.2) 12/08/19 06:25 Differential Comment Manual differential 12/08/19 06:25 RBC Morphology See below 12/08/19 06:25 Hypochromasia 2+ 12/08/19 06:25 Anisocytosis 1+ 12/07/19 06:20 Sodium 139 mmol/L (136-145) 12/12/19 07:50 Potassium 3.8 mmol/L (3.5-5.1) 12/12/19 07:50 Chloride 102 mmol/L (98-107) 12/12/19 07:50 Carbon Dioxide 26.9 mmol/L (21.0-32.0) 12/12/19 07:50 Anion Gap 10.1 mmol/L (3-11) 12/12/19 07:50 BUN 15 mg/dL (7-18) 12/12/19 07:50 Creatinine 0.78 mg/dL (0.55-1.02) 12/12/19 07:50 Estimated GFR/1.73 m2 >= 60.00 (mL/min/1.73m2) 12/12/19 07:50 Glucose 138 mg/dL (74-106) H 12/12/19 07:50 Calcium 9.0 mg/dL (8.5-10.1) 12/12/19 07:50 Magnesium 1.7 mg/dL (1.8-2.4) L 12/12/19 07:50 Procalcitonin < 0.1 ng/mL 12/09/19 06:11
--- NOTE | 2019-12-12 14:17 | PDOC.CMPRO ---
- If Service Date Differs Date of service: 12/12/19 Time of Service: 14:18 Care Management Progress Note S/O: Lisa remains inpatient today CM has contacted [facility] to request a swing bed approval, due to chcf and RT support anticipate she will be ready for discharge on Sunday. Team Meeting today present: , RT Tho and RT Carin, Regine Keita RN CCC, RT Hanna prompt care, Livia Fontaine [facility], Primary nurse Elvira Gordon RN, Caty Chun, SOLID WASTE FACILITY SUPERVISOR, and Community Development Aide JACQUE Bacon, also present Lisa, her son Abdulaziz and daughter Trini. Goal of the meeting: Establish plan for discharge including supports and equipment. Determine level of care at time of discharge, update COLST, update on current level of care,and prepare education schedule over the weekend with family. All questions answered during the meeting and Lisa and family states that they have a good understanding of Lisa's needs. 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 Admitted to swing bed for PT/OT, trach and chcf care. For essentially failure to thrive at home and difficulty managing trach. Lisa is now acute related to elevated white count, and pneumonia and need for IV antibiotics, which are now complete. Plan: Lisa will transition to SB1 anticipate Sunday for chcf and trach management. She will plan to discharge home Sunday with home health services, including OT, nursing, SOLID WASTE FACILITY SUPERVISOR, and RIBBON BLOCKMAKER. Halfway Medicaid is pending CM has faxed consent to agency to follow up status. Family to provide transportation home at time of discharge. -RT Tho has put together a binder with trach care instructions, including contact list for individual providing services to Lisa. She has also included trach specific and equipment information including type and size of trach. Hanna will share the binder with home health, primary care and RT from [facility]. - RT michelle Jefferson will submit for the humidification system which can take up to 14 days for insurance approval. - [facility], will continue to supply trach supplies and oxygen if needed, family will need to order the supplies every month on the to ensure that the supplies do not run out. -[facility], will provide nursing, RT, OT, and RIBBON BLOCKMAKER, as well as case management for choices for care and the LTM application is approved. -SOLID WASTE FACILITY SUPERVISOR will continue to follow Lisa while she is here and contact company to establish when the electrolarynx will arrive, Lisa will need ongoing speech therapy through home health to learn how to use the device. - Daughter Triin, will be in over the weekend to receive trach teaching by RT including changing the inner canula and suctioning. - When Lisa returns home her children will provide the majority of support, Lisa is able to demonstrate total trach care.
--- NOTE | 2019-12-12 16:33 | W.PM.PROGNOT ---
Date of Service Date of service: 12/12/19 Time of Service: 16:33 Assessment and Plan Assessment and plan (1) Pneumonia of right lower lobe due to infectious organism: Status: Resolved Assessment and plan: Completed antibiotics. Barium swallow ruled out a tracheoesophageal fistula - aspiration pneumonia virtually impossible. (2) UTI (urinary tract infection): Status: Resolved Assessment and plan: Due to Klebsiella pneumonia, present on admission. Completed antibiotics. (3) Adynamic ileus: Status: Resolved Assessment and plan: Clinically resolved. Continue reglan AC/HS. (4) Anxiety: Status: Chronic Assessment and plan: Seems to be controlled with a more measured approach to suctioning. 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 No evidence of tracheoesophageal fistula on barium swallow. (6) Tracheostomy care: Status: Acute Assessment and plan: Suctioning only prn, per PT. (7) Discharge planning issues: Status: Acute Assessment and plan: Full code. Disposition is likely going to go home with palliative care. May require a swing bed level 1 stay until then. Prior auth is being obtained by care management. The patient will require myAIRVO on discharge, as there is evidence that it improves secretion clearance, decreases number of exacerbations of pulmonary disease and increases time to first exacerbation. It also improves pulmonary function and quality of life. Without the my AIRVO system, this patient has a high likelihood of an increase in acute exacerbations of her disease. Prior therapies have failed to do so for this patient. (8) DVT prophylaxis: Status: Acute Assessment and plan: On therapeutic apixaban. Subjective Subjective Interval history since last seen: Ms Anderson refused IV lasix and refuses to have another IV. She did accept PO lasix, after which her shortness of breath got a lot better. She denied dizziness, chest pain, shortness of breath, nausea, vomiting. Eating is going well. No more abdominal distention with food. Exam Narrative Exam Narrative: General: Very pleasant elderly female, A&Ox3, sitting comfortably in a chair HEENT: EOMI, MMM, Trach with deviation to the left, patent Heart: RRR, no m/r/g Lungs: Significant improvement in rales B Abdomen: soft, nontender, mildly distended, + PEG, + hypoactive bowel sounds Extremities: trace BLE edema, now in tuber grippers Objective Objective Clinical Data: Abnormal lab results 12/12/19 Range/Units 07:50 Glucose 138 H (74-106) mg/dL Magnesium 1.7 L (1.8-2.4) mg/dL Vital Signs Temperature 36.2 C L 12/12/19 15:31 Temperature Source Tympanic 12/12/19 15:31 Pulse 95 H 12/12/19 15:31 Pulse Rhythm Regular 12/12/19 00:10 Respiratory Rate 18 12/12/19 15:31 Respiratory Effort Non-Labored 12/12/19 00:10 Respiratory Depth Normal 12/12/19 00:10 Respiratory Pattern Normal 12/12/19 00:10 Blood Pressure 128/73 12/12/19 15:31 Blood Pressure Mean 69 12/07/19 16:32 Blood Pressure Position Sitting 12/05/19 16:10 Pulse Oximetry 95 12/12/19 15:31 Oxygen Delivery Method Room Air 12/12/19 15:31 Oxygen Flow Rate 0 12/12/19 15:31 Fraction of Inspired Oxygen (FIO2) 21 12/12/19 09:46 Pain Level 0 12/12/19 15:31 Comment 12/09/19 04:10 Intake & Output 12/11/19 12/12/19 12/12/19 23:59 11:59 23:59 Intake Total 660 / 1020 240 / 480 240 / 480 Output Total 100 / 300 50 / 50 Balance 560 / 720 190 / 430 240 / 430 Weight 84 kg Intake: IV 0 / 0 Oral 660 / 1020 240 / 480 240 / 480 Output: Urine 100 / 300 50 / 50 Other: Urine Color Yellow Yellow Urine Appearance Clear Clear Urine Odor Normal Normal Comment large incont breif and void in bedside commode Stool Size Small Moderate Stool Characteristics Soft Soft Formed Formed Brown Brown Voiding Methods Incontinent Bedside Commode Incontinent Laboratory Results WBC 7.76 k/cumm (4.4-10.8) 12/08/19 06:25 RBC 3.07 m/cumm (4.00-5.20) L 12/08/19 06:25 Hgb 8.5 g/dL (12.0-15.5) L 12/08/19 06:25 Hct 27.8 % (36.0-46.0) L 12/08/19 06:25 MCV 90.6 fL (80-95) 12/08/19 06:25 MCH 27.7 pg (27.0-33.0) 12/08/19 06:25 MCHC 30.6 g/dL (32.0-36.0) L 12/08/19 06:25 RDW 15.7 % (11.7-14.6) H 12/08/19 06:25 Plt Count 433 x1000/uL (130-400) H 12/08/19 06:25 MPV 9.3 fL (8.0-11.0) 12/08/19 06:25 Immature Gran % 0.0 % 12/08/19 06:25 Neutrophils % 71.0 12/08/19 06:25 Band Neutrophils % 1.0 % 12/08/19 06:25 Lymphocytes % 15.0 12/08/19 06:25 Atypical Lymphs % 3 12/08/19 06:25 Monocytes % 7.0 12/08/19 06:25 Eosinophils % 3.0 12/08/19 06:25 Basophils % 0.0 12/08/19 06:25 Absolute Neutrophils 5.59 k/cumm (1.2-6.7) 12/08/19 06:25 Absolute Lymphocytes 1.40 k/cumm (1.2-3.4) 12/08/19 06:25 Absolute Monocytes 0.54 k/cumm (0.11-0.7) 12/08/19 06:25 Absolute Eosinophils 0.23 k/cumm (0.0-0.7) 12/08/19 06:25 Absolute Basophils 0.00 k/cumm (0.0-0.2) 12/08/19 06:25 Differential Comment Manual differential 12/08/19 06:25 RBC Morphology See below 12/08/19 06:25 Hypochromasia 2+ 12/08/19 06:25 Anisocytosis 1+ 12/07/19 06:20 Sodium 139 mmol/L (136-145) 12/12/19 07:50 Potassium 3.8 mmol/L (3.5-5.1) 12/12/19 07:50 Chloride 102 mmol/L (98-107) 12/12/19 07:50 Carbon Dioxide 26.9 mmol/L (21.0-32.0) 12/12/19 07:50 Anion Gap 10.1 mmol/L (3-11) 12/12/19 07:50 BUN 15 mg/dL (7-18) 12/12/19 07:50 Creatinine 0.78 mg/dL (0.55-1.02) 12/12/19 07:50 Estimated GFR/1.73 m2 >= 60.00 (mL/min/1.73m2) 12/12/19 07:50 Glucose 138 mg/dL (74-106) H 12/12/19 07:50 Calcium 9.0 mg/dL (8.5-10.1) 12/12/19 07:50 Magnesium 1.7 mg/dL (1.8-2.4) L 12/12/19 07:50 Procalcitonin < 0.1 ng/mL 12/09/19 06:11
[2019-12-12] MEDS: Insulin Aspart 300 UNITS/3 ML PEN SC (17:12)
[2019-12-13 03:25] VITALS: BP 166/70; PULSE 94; RESP 19; TEMP 36.7; O2SAT 93
[2019-12-13 06:48] LABS: Anion Gap 11.6 mmol/L (3-11); BUN 14 mg/dL (7-18); CO2 27.4 mmol/L (21.0-32.0); CREATININE 0.77 mg/dL (0.55-1.02); Calcium 9.1 mg/dL (8.5-10.1); Chloride 100 mmol/L (98-107); Glucose 145 mg/dL (74-106); Magnesium 2.1 mg/dL (1.8-2.4); Potassium 3.5 mmol/L (3.5-5.1); Sodium 139 mmol/L (136-145)
[2019-12-13 07:00] VITALS: BP 130/70; PULSE 91; RESP 18; TEMP 36.7; O2SAT 94
[2019-12-13 07:35] VITALS: TEMP 34
[2019-12-13] MEDS: Metoclopramide 10 MG TAB 5 MG PO ×4 (07:41→20:59)
[2019-12-13] MEDS: Magnesium Oxide 400 MG TAB PO ×2 (08:56→21:00)
[2019-12-13] MEDS: guaiFENesin 200 MG/10 ML CUP 400 MG PO ×2 (08:56→21:01)
[2019-12-13] MEDS: Metoprolol CR 25 MG TABCR 12.5 MG PO ×2 (08:56→21:00)
[2019-12-13] MEDS: Apixaban 5 MG TAB PO ×2 (08:57→21:00)
[2019-12-13] MEDS: Furosemide 40 MG TAB PO ×2 (08:57→16:35)
[2019-12-13] MEDS: Nystatin 500000 UNITS/5 ML SUSP 5ML CUP PO ×4 (09:17→21:01)
--- NOTE | 2019-12-13 10:38 | PDOC.CMPRO ---
- If Service Date Differs Date of service: 12/13/19 Time of Service: 10:38 Care Management Progress Note S/O: Lisa remains acute today no other changes. LILLI did receive a call from her daughter Jasmin who demands to know why her Mom will not talk with her. CM encouraged Jasmin and the family to engage in communication with one another and support Lisa during this time. Jasmin was very upset and tearful as well as determined that she is the best support to her mother and that the others are taking advantage. Jasmin did send a letter through the primary nurse to Lisa yesterday asking her to explain why she will not see her or talk with her. CM has explained that the hospital will act in the best interest of patient and follow Lisa's request. CM also reminded Jasmin that it is best to have one point of contact to provide updates and then connect as a family to discuss the details. Lisa has changed her COLST with and identified Trini as the primary contact as well as son Abdulaziz. 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 Admitted to swing bed for PT/OT, trach and custodial care. For essentially failure to thrive at home and difficulty managing trach. Lisa is now acute related to elevated white count, and pneumonia and need for IV antibiotics, which are now complete. Plan: Lisa will remain acute and plan for a discharge on Sunday with family. Family will come in on Sunday for custodial and trach management. She will plan to discharge home Sunday with home health services, including OT, nursing, SHIPPING TEAM LEADER, and SUGAR REPROCESS OPERATOR HEAD. Early Childhood Education Coordinator Medicaid is pending CM has faxed consent to agency to follow up status. Family to provide transportation home at time of discharge.
[2019-12-13] MEDS: POTASSIUM CHLORIDE 20 MEQ, POTASSIUM CHLORIDE 10 MEQ 30 MEQ UD (12:48)
[2019-12-13 15:10] VITALS: BP 137/61; PULSE 86; RESP 19; TEMP 37; O2SAT 95
--- NOTE | 2019-12-13 16:57 | PGE_ITS ---
Date of Service Date of service: 12/13/19 Time of Service: 16:58 Assessment and Plan Assessment and plan (1) Tracheostomy hemorrhage: Status: Acute Assessment and plan: She originally was admitted for bleeding from the tracheostomy site. That has all cleared up. She is getting regular and appropriate tracheostomy care. She is back on her Eliquis. We are still trying to get the proper tracheostomy equipment to do a trach change. (2) Adynamic ileus: Status: Resolved Assessment and plan: The ileus from a few days ago appears to have resolved. She is back taking p.o. and getting her tube feeds. (3) Pneumonia of right lower lobe due to infectious organism: Status: Resolved Assessment and plan: The pneumonia appears to have cleared up. She appears to be stable from an infectious disease point of view. (4) Hypokalemia: Status: Acute Assessment and plan: Potassium was low today at 3.5. Nursing informs me that she had been refusing her potassium supplementation because she preferred it as a slurry. She got 30 mEq x 1 and will go back on her 20 mEq twice daily in the format that she prefers. (5) Discharge planning issues: Status: Acute Assessment and plan: The plan was to discharge early next week. She does not plan to go back to [facility] for any further radiation or tracheostomy care. Subjective Subjective Interval history since last seen: Patient has been overall comfortable. She is concerned that when she swallows water it gets into her nose. She is refusing to have meds go through her G-tube. She prefers to take it as pills. No breathing difficulty. No fevers. Her son was with her to visit today. Exam Narrative Exam Narrative: On exam she is sitting up in the chair. She makes good eye contact and greets me appropriately. She has no respiratory difficulty. Her posterior lung exam is clear and free of any rales. Her heart sounds are regular. The trach site is clean and shows no evidence of any bleeding. The G- tube site is clean and shows no irritation. The abdomen is overall soft and nontender. Does not appear distended. Objective Objective Clinical Data: Abnormal lab results 12/13/19 Range/Units 06:05 Anion Gap 11.6 H (3-11) mmol/L Glucose 145 H (74-106) mg/dL Vital Signs Temperature 37.0 C 12/13/19 15:10 Temperature Source Temporal Artery Scan 12/13/19 15:10 Pulse 86 12/13/19 15:10 Pulse Rhythm Regular 12/13/19 07:40 Respiratory Rate 19 12/13/19 15:10 Respiratory Effort Non-Labored 12/13/19 07:40 Respiratory Depth Normal 12/13/19 07:40 Respiratory Pattern Normal 12/13/19 07:40 Blood Pressure 137/61 12/13/19 15:10 Blood Pressure Mean 69 12/07/19 16:32 Blood Pressure Position Sitting 12/05/19 16:10 Pulse Oximetry 95 12/13/19 15:10 Oxygen Delivery Method Trach Collar 12/13/19 15:10 Oxygen Flow Rate 0 12/13/19 07:00 Fraction of Inspired Oxygen (FIO2) 21 12/12/19 16:36 Pain Level 0 12/13/19 15:10 Comment 12/09/19 04:10 Intake & Output 12/12/19 12/13/19 12/13/19 23:59 11:59 23:59 Intake Total 290 / 530 0 / 240 240 / 240 Output Total 500 / 550 200 / 200 Balance -210 / -20 -200 / 40 240 / 40 Weight 84 kg Intake: Oral 290 / 530 240 / 240 Intake, Tube Feeding Amount 0 / 0 0 / 0 Output: Urine 500 / 550 200 / 200 Other: Urine Color Pale Yellow Urine Appearance Clear Clear Urine Odor Normal Normal Voiding Methods Bedside Commode Bedside Commode Diaper Incontinent Laboratory Results WBC 7.76 k/cumm (4.4-10.8) 12/08/19 06:25 RBC 3.07 m/cumm (4.00-5.20) L 12/08/19 06:25 Hgb 8.5 g/dL (12.0-15.5) L 12/08/19 06:25 Hct 27.8 % (36.0-46.0) L 12/08/19 06:25 MCV 90.6 fL (80-95) 12/08/19 06:25 MCH 27.7 pg (27.0-33.0) 12/08/19 06:25 MCHC 30.6 g/dL (32.0-36.0) L 12/08/19 06:25 RDW 15.7 % (11.7-14.6) H 12/08/19 06:25 Plt Count 433 x1000/uL (130-400) H 12/08/19 06:25 MPV 9.3 fL (8.0-11.0) 12/08/19 06:25 Immature Gran % 0.0 % 12/08/19 06:25 Neutrophils % 71.0 12/08/19 06:25 Band Neutrophils % 1.0 % 12/08/19 06:25 Lymphocytes % 15.0 12/08/19 06:25 Atypical Lymphs % 3 12/08/19 06:25 Monocytes % 7.0 12/08/19 06:25 Eosinophils % 3.0 12/08/19 06:25 Basophils % 0.0 12/08/19 06:25 Absolute Neutrophils 5.59 k/cumm (1.2-6.7) 12/08/19 06:25 Absolute Lymphocytes 1.40 k/cumm (1.2-3.4) 12/08/19 06:25 Absolute Monocytes 0.54 k/cumm (0.11-0.7) 12/08/19 06:25 Absolute Eosinophils 0.23 k/cumm (0.0-0.7) 12/08/19 06:25 Absolute Basophils 0.00 k/cumm (0.0-0.2) 12/08/19 06:25 Differential Comment Manual differential 12/08/19 06:25 RBC Morphology See below 12/08/19 06:25 Hypochromasia 2+ 12/08/19 06:25 Anisocytosis 1+ 12/07/19 06:20 Sodium 139 mmol/L (136-145) 12/13/19 06:05 Potassium 3.5 mmol/L (3.5-5.1) 12/13/19 06:05 Chloride 100 mmol/L (98-107) 12/13/19 06:05 Carbon Dioxide 27.4 mmol/L (21.0-32.0) 12/13/19 06:05 Anion Gap 11.6 mmol/L (3-11) H 12/13/19 06:05 BUN 14 mg/dL (7-18) 12/13/19 06:05 Creatinine 0.77 mg/dL (0.55-1.02) 12/13/19 06:05 Estimated GFR/1.73 m2 >= 60.00 (mL/min/1.73m2) 12/13/19 06:05 Glucose 145 mg/dL (74-106) H 12/13/19 06:05 Calcium 9.1 mg/dL (8.5-10.1) 12/13/19 06:05 Magnesium 2.1 mg/dL (1.8-2.4) 12/13/19 06:05 Procalcitonin < 0.1 ng/mL 12/09/19 06:11
[2019-12-13 19:00] VITALS: BP 131/76; PULSE 91; RESP 20; TEMP 36.9; O2SAT 96
[2019-12-13] MEDS: Potassium Chloride 20 MEQ TABCR PO (21:00)
[2019-12-13 23:21] VITALS: BP 127/76; PULSE 86; RESP 19; TEMP 36.4; O2SAT 95
[2019-12-14 06:34] LABS: Abs Immature Grans 0.02 k/cumm (0.0-0.09); Absolute Basophil Count 0.03 k/cumm (0.0-0.2); Absolute Eosinophil Count 0.29 k/cumm (0.0-0.7); Absolute Lymphocyte Count 1.35 k/cumm (1.2-3.4); Absolute Monocyte Count 0.82 k/cumm (0.11-0.7); Absolute Neutrophil Count 5.57 k/cumm (1.2-6.7); Basophils % 0.4; Eosinophils % 3.6; HCT 32.3 % (36.0-46.0); HGB 9.8 g/dL (12.0-15.5); Immature Grans % 0.2 %; Lymphocytes % 16.7; Mean Corp. HGB Concentration 30.3 g/dL (32.0-36.0); Mean Corpuscular Hemoglobin 27.1 pg (27.0-33.0); Mean Corpuscular Volume 89.5 fL (80-95); Mean Platelet Volume 9.2 fL (8.0-11.0); Monocytes % 10.1; Platelet Count 416 x1000/uL (130-400); RBC 3.61 m/cumm (4.00-5.20); White Blood Cell Count 8.08 k/cumm (4.4-10.8)
[2019-12-14 06:45] LABS: Anion Gap 8.7 mmol/L (3-11); BUN 15 mg/dL (7-18); CO2 28.3 mmol/L (21.0-32.0); CREATININE 0.81 mg/dL (0.55-1.02); Chloride 101 mmol/L (98-107); Glucose 145 mg/dL (74-106); Potassium 3.6 mmol/L (3.5-5.1); Sodium 138 mmol/L (136-145)
[2019-12-14 07:25] VITALS: BP 130/74; PULSE 83; RESP 17; TEMP 36.6; O2SAT 95
[2019-12-14] MEDS: Potassium Chloride 20 MEQ TABCR PO ×2 (08:20→20:32)
[2019-12-14] MEDS: Nystatin 500000 UNITS/5 ML SUSP 5ML CUP PO (08:20)
[2019-12-14] MEDS: guaiFENesin 200 MG/10 ML CUP 400 MG PO (08:20)
[2019-12-14] MEDS: Apixaban 5 MG TAB PO ×2 (08:21→20:32)
[2019-12-14] MEDS: Metoprolol CR 25 MG TABCR 12.5 MG PO ×2 (08:21→20:32)
[2019-12-14] MEDS: Magnesium Oxide 400 MG TAB PO ×2 (08:21→20:31)
[2019-12-14] MEDS: Metoclopramide 10 MG TAB 5 MG PO ×4 (08:22→20:32)
[2019-12-14] MEDS: Furosemide 40 MG TAB PO ×2 (08:22→16:05)
[2019-12-14 12:00] VITALS: BP 130/70; PULSE 80; RESP 18; TEMP 36.6; O2SAT 95
--- NOTE | 2019-12-14 14:54 | CMPROGNOTE_ITS ---
- If Service Date Differs Date of service: 12/14/19 Time of Service: 14:54 Care Management Progress Note S/O: CM met with Lisa today at the bedside she would like to return home this week. CM spoke with her son Abdulaziz at length and he is agreeable and will be staying with her. Entire trach was changed today by RT, family present for teaching. RT will complete the teaching guide today and provide to family. CM will contact home health and request Sunday Morning visit at the patients home she will need medication assistance and setting up med trays. Lisa admits she is nervous about returning home however states this is where she wants to be. Prompt care will continue to obtain the quite humidification system. retirement Medicaid is pending CM will follow up on Sunday to determine if the financial has gone through. CM will need to contact [facility] [place] to request appropriate size outer trachs. 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 Admitted to swing bed for PT/OT, trach and halfway care. For essentially failure to thrive at home and difficulty managing trach. Lisa is now acute related to elevated white count, and pneumonia and need for IV antibiotics, which are now complete. Plan: Lisa will remain acute and plan for a discharge on Sunday with family. Family will come in on Sunday and Sunday for halfway and trach management. She will plan to discharge home Sunday with home health services, including OT, nursing, SENIOR INDUSTRIAL ENGINEER, and NONPROFIT FINANCIAL CONTROLLER. Detention Medicaid is pending CM has faxed consent to agency to follow up status. Family to provide transportation home at time of discharge.
--- NOTE | 2019-12-14 15:04 | W.PM.PROGNOT ---
Date of Service Date of service: 12/14/19 Time of Service: 15:04 Assessment and Plan Assessment and plan (1) Tracheostomy care: Status: Acute Assessment and plan: Trach changed out today uneventfully. Hanna Tomas, RT, has done an excellent job putting together a booklet with lots of information about tracheostomy care, resources, calendars, etc. (2) Hypokalemia: Status: Acute Assessment and plan: She is on scheduled potassium replacement. Potassium is come up to 3.6. We will follow that periodically. (3) Pneumonia of right lower lobe due to infectious organism: Status: Resolved Assessment and plan: She is off antibiotics. Respiratory status is stable. (4) UTI (urinary tract infection): Status: Resolved Assessment and plan: No evidence of urinary tract infection. (5) Nausea and vomiting: Status: Acute Assessment and plan: She is complaining of some form of reflux that is getting into her nasal passage. We will ask speech therapy to reevaluate. Given the extent of her head and neck surgery there may have been some damage to the innervation to her swallowing mechanism. Continue PPI therapy. (6) Discharge planning issues: Status: Acute Assessment and plan: She should be ready for discharge early this coming week. She is DNR. She would allow mechanical ventilation via her tracheostomy if needed. Subjective Subjective Interval history since last seen: Patient offers no new specific complaints. She does note that certain foods are entering her nasal passage after swallowing. She described this with water and then later with some milk. She had her trach replaced today with respiratory therapy, uneventful. Family members were all at the bedside. Exam Narrative Exam Narrative: Anxious appearing female in no apparent distress. She had no obvious nasal congestion or evidence of any discharge. Her trach appear to be functioning well without any adventitial sounds. Hanna Tomas was able to remove the old trach and replace it with a new trach device without any difficulty. The soft tissues did collapse for about 1 or 2 seconds and the patient became anxious. The new trach slipped and immediately and she breathed well through the new trach. There was no excessive amount of secretions. The stomal site appeared healthy and pink. Her lung sounds remain clear bilaterally. Objective Objective Clinical Data: Abnormal lab results 12/14/19 12/14/19 Range/Units 06:00 06:00 RBC 3.61 L (4.00-5.20) m/cumm Hgb 9.8 L (12.0-15.5) g/dL Hct 32.3 L (36.0-46.0) % MCHC 30.3 L (32.0-36.0) g/dL RDW 16.0 H (11.7-14.6) % Plt Count 416 H (130-400) x1000/uL Absolute Monocytes 0.82 H (0.11-0.7) k/cumm Glucose 145 H (74-106) mg/dL Vital Signs Temperature 36.6 C 12/14/19 12:00 Temperature Source Tympanic 12/14/19 12:00 Pulse 80 12/14/19 12:00 Pulse Rhythm Regular 12/14/19 09:27 Respiratory Rate 18 12/14/19 12:00 Respiratory Effort Non-Labored 12/14/19 09:27 Respiratory Depth Normal 12/14/19 09:27 Respiratory Pattern Normal 12/14/19 09:27 Blood Pressure 130/70 12/14/19 12:00 Blood Pressure Mean 69 12/07/19 16:32 Blood Pressure Position Sitting 12/05/19 16:10 Pulse Oximetry 95 12/14/19 12:00 Oxygen Delivery Method Trach Collar 12/14/19 12:00 Oxygen Flow Rate 0 12/13/19 23:21 Fraction of Inspired Oxygen (FIO2) 21 12/13/19 07:35 Pain Level 0 12/14/19 12:00 Comment 12/09/19 04:10 Intake & Output 12/13/19 12/14/19 12/14/19 23:59 11:59 23:59 Intake Total 540 / 540 450 / 640 190 / 640 Output Total 450 / 450 Balance 540 / 340 0 / 190 190 / 190 Weight 84.3 kg Intake: Oral 540 / 540 450 / 640 190 / 640 Output: Urine 450 / 450 Other: Urine Color Yellow Urine Appearance Clear Clear Urine Odor Normal Comment mixed with stool Stool Occult Blood Negative Stool Size Moderate Moderate Stool Characteristics Soft Formed Voiding Methods Bedside Commode Incontinent Laboratory Results WBC 8.08 k/cumm (4.4-10.8) 12/14/19 06:00 RBC 3.61 m/cumm (4.00-5.20) L 12/14/19 06:00 Hgb 9.8 g/dL (12.0-15.5) L 12/14/19 06:00 Hct 32.3 % (36.0-46.0) L 12/14/19 06:00 MCV 89.5 fL (80-95) 12/14/19 06:00 MCH 27.1 pg (27.0-33.0) 12/14/19 06:00 MCHC 30.3 g/dL (32.0-36.0) L 12/14/19 06:00 RDW 16.0 % (11.7-14.6) H 12/14/19 06:00 Plt Count 416 x1000/uL (130-400) H 12/14/19 06:00 MPV 9.2 fL (8.0-11.0) 12/14/19 06:00 Immature Gran % 0.2 % 12/14/19 06:00 Neutrophils % 69.0 12/14/19 06:00 Band Neutrophils % 1.0 % 12/08/19 06:25 Lymphocytes % 16.7 12/14/19 06:00 Atypical Lymphs % 3 12/08/19 06:25 Monocytes % 10.1 12/14/19 06:00 Eosinophils % 3.6 12/14/19 06:00 Basophils % 0.4 12/14/19 06:00 Absolute Neutrophils 5.57 k/cumm (1.2-6.7) 12/14/19 06:00 Absolute Lymphocytes 1.35 k/cumm (1.2-3.4) 12/14/19 06:00 Absolute Monocytes 0.82 k/cumm (0.11-0.7) H 12/14/19 06:00 Absolute Eosinophils 0.29 k/cumm (0.0-0.7) 12/14/19 06:00 Absolute Basophils 0.03 k/cumm (0.0-0.2) 12/14/19 06:00 Differential Comment Manual differential 12/08/19 06:25 RBC Morphology See below 12/08/19 06:25 Hypochromasia 2+ 12/08/19 06:25 Anisocytosis 1+ 12/07/19 06:20 Sodium 138 mmol/L (136-145) 12/14/19 06:00 Potassium 3.6 mmol/L (3.5-5.1) 12/14/19 06:00 Chloride 101 mmol/L (98-107) 12/14/19 06:00 Carbon Dioxide 28.3 mmol/L (21.0-32.0) 12/14/19 06:00 Anion Gap 8.7 mmol/L (3-11) 12/14/19 06:00 BUN 15 mg/dL (7-18) 12/14/19 06:00 Creatinine 0.81 mg/dL (0.55-1.02) 12/14/19 06:00 Estimated GFR/1.73 m2 >= 60.00 (mL/min/1.73m2) 12/14/19 06:00 Glucose 145 mg/dL (74-106) H 12/14/19 06:00 Calcium 9.0 mg/dL (8.5-10.1) 12/14/19 06:00 Magnesium 2.1 mg/dL (1.8-2.4) 12/13/19 06:05 Procalcitonin < 0.1 ng/mL 12/09/19 06:11
[2019-12-14 16:15] VITALS: BP 123/77; PULSE 62; RESP 18; TEMP 36.6; O2SAT 95
[2019-12-14] MEDS: Insulin Aspart 300 UNITS/3 ML PEN SC (17:09)
[2019-12-14 20:34] VITALS: O2SAT 94
[2019-12-14] MEDS: Albuterol/Ipratropium 3 ML UPD VIAL IH (20:34)
[2019-12-14 23:07] VITALS: BP 154/77; PULSE 96; RESP 18; TEMP 36.6; O2SAT 93
[2019-12-15 03:15] VITALS: BP 138/78; PULSE 94; RESP 20; TEMP 36.6; O2SAT 91
[2019-12-15 06:35] LABS: Potassium 3.9 mmol/L (3.5-5.1)
[2019-12-15 07:20] VITALS: BP 148/76; PULSE 93; RESP 18; TEMP 36.5; O2SAT 94
[2019-12-15] MEDS: guaiFENesin 200 MG/10 ML CUP 400 MG PO (08:41)
[2019-12-15] MEDS: Insulin Aspart 300 UNITS/3 ML PEN SC (08:41)
[2019-12-15] MEDS: Magnesium Oxide 400 MG TAB PO (08:43)
[2019-12-15] MEDS: Potassium Chloride 20 MEQ TABCR PO (08:43)
[2019-12-15] MEDS: Metoprolol CR 25 MG TABCR 12.5 MG PO (08:43)
[2019-12-15] MEDS: Furosemide 40 MG TAB PO (08:43)
[2019-12-15] MEDS: Apixaban 5 MG TAB PO (08:44)
[2019-12-15] MEDS: Metoclopramide 10 MG TAB 5 MG PO ×2 (08:44→12:01)
[2019-12-15 09:50] VITALS: TEMP 34
[2019-12-15 11:34] VITALS: BP 115/73; PULSE 88; RESP 18; TEMP 36.5; O2SAT 95
--- NOTE | 2019-12-15 17:06 | PDOC.CMDIS ---
- If Service Date Differs Date of service: 12/15/19 Time of Service: 17:06 LACE Index Scoring Tool - Questions: Length of Stay (in days): 14 or more Acuity (Admit via E.D.?): Yes Comorbidities: Cerebrovascular Disease, Congestive Heart Failure, Any Tumor E.D. Visits: 2 - Answers: Total Score: 17 Risk of Readmission: High Risk Care Management Discharge Reason for Hospitalization: RLL Pneumonia Discharge Plan: Lisa to be discharged home today. Her son will transport her home at time of discharge. Lisa states she is ready to return home. The following coordination was completed. --IMM completed prior to discharge and faxed to access. --CM contacted [facility] and discussed discharged and requested Sunday admission and assistance with medication set up. --CM confirmed with [facility] that the appropiate outer trach was ordered and will be delivered to the patients home. CM left a message for Crystal GRAHAM to discuss the teaching at need at home. CM did leave a message and requested teaching to the family at home. --CM contacted Hanna at [facility] r/t new humidifcation system which she is waiting for confirmation of approval and then will deliver. --CM left a voicemail and email for Livia at [facility] [phone]. --RT provided clear instruction and verified appropiate equipment at time of discharge. --Lisa will need to have a follow up with this will need to be scheduled, home health is unable to change the outer trach monthly and this will need to be done with ENT or at primary care. CM contacted CCC at primary care office to request follow up coordination. --CM completed follow up phone call with patient and family to review medications. CM contacted Judy partida some of the medications will not be in tonight including potassium, mag, and reglan CM verified with provider that she would be okay to obtain the medications in the morning and resume. CM also clairfied the Metoprolol dose which was changed to tartrate by provider as this is what the patient has at home and it can be split for the 12.5 dose BID. All questions were answered and follow up phone call was done evening of discharge. Patient/Family Education Needs: Discharge education, limitations and follow up plan of care including ask me three and self management. Services Needed at Discharge: Home Health Care Services, Occupational Therapy, Physical Therapy, Speech Therapy
--- NOTE | 2019-12-15 17:59 | DSE_ITS ---
Date of service: 12/15/19 Time of Service: 17:59 DS: Diagnosis Discharge Diagnosis (1) Tracheostomy care: Status: Acute Asessment and Plan: Patient received extensive training and education on tracheostomy care, family members were present. A thorough booklet was put together with resources and diagrams. She had her tracheostomy hardware changed on 12/14/2019 (2) Hypokalemia: Status: Acute Asessment and Plan: Continue on oral potassium replacement. Potassium on the day of discharge 3.9 (3) Pneumonia of right lower lobe due to infectious organism: Status: Resolved Asessment and Plan: Completed a course of antibiotics during her admission. Oxygen saturation 94% on room air (4) UTI (urinary tract infection): Status: Resolved Asessment and Plan: Completed a course of treatment during this admission. Grew out Klebsiella pneumoniae (5) Nausea and vomiting: Status: Acute Asessment and Plan: Patient is complaining that some food and liquids is refluxing into her nasal passage. She is going to try to eat more slowly and more carefully. Discharge Plan Disposition Patient Disposition: HOME W/HOME HEALTH SERVICE Condition: Improving Discharge Details Reason For Visit: RIGHT LOWER LOBE PNEUMONIA/TRACHEOSTOMY CARE Admit Date/Time: 12/05/19 15:30 Admit Provider: Sb De Los Santos Attending Provider: Sb De Los Santos Primary Care Provider: Caridad Sánchez [facility] Course Hospital Course: This is an 79-year-old woman who has a history of laryngeal cancer. She underwent a laryngectomy procedure about 3 months ago at [facility]. It was a long complicated recovery. Post hospitalization she was at a fci in [facility]. She was home with family members caring for her for about 6 days. She was sent to the emergency room because of bleeding from her trachea. It turns out family members were suctioning through the trachea on a regular basis, causing some bleeding. She was admitted and respiratory therapy worked with the patient and her family on proper suctioning techniques. The bleeding stopped. She was transitioned to swing bed in anticipation of returning home. She developed a cough and had a high white count so a chest x-ray was obtained on 12/04/2019. She was started on IV antibiotics for right lower lobe pneumonia. Urinalysis also showed evidence of infection. She completed a course of antibiotics and her pneumonia cleared. She then developed abdominal distention and had high residuals on her G-tube. General surgery was consulted. She was diagnosed with an ileus. She was n.p.o. and her G-tube feeds were held. She was started on Reglan. Her ileus resolved and she resumed her normal diet. She was complaining that liquids and food were coming out of her nose. She felt that she may be eating things too quickly. She states that when she uses a straw it works better. She is trying to regulate how fast she eats food. She had a tracheostomy changed out on 12/14/2019 by respiratory therapy. She has an entire booklet on tracheostomy care prepared by respiratory therapy. She has new supplies. 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 Home Meds and New Rx's Prescriptions: New furosemide 40 mg Tablet 40 mg PO BID@0830,1600 Qty: 60 RF: 1 magnesium oxide 500 mg tablet 500 mg PO BID Qty: 60 RF: 1 metoclopramide HCl [Reglan] 5 mg tablet 5 mg PO QACHS Qty: 120 RF: 1 potassium chloride [K-Tab] 20 mEq tablet extended release 20 meq PO BID Qty: 60 RF: 1 Continued albuterol sulfate 90 mcg/actuation HFA aerosol inhaler 2 puff IH QID PRN (Reason: shortness of breath or wheezing) Qty: 8.5 RF: 0 Eliquis 5 mg tablet 5 mg PO BID Qty: 60 RF: 12 ipratropium-albuterol 0.5 mg-3 mg(2.5 mg base)/3 mL solution for nebulization 3 ml IH QID PRN (Reason: wheezing. J44.9) Qty: 180 RF: 8 guaifenesin [Tussin Mucus-Chest Congestion] 100 mg/5 mL liquid 400 mg PO BID Qty: 1000 RF: 0 Discontinued nystatin 100,000 unit/mL suspension 500,000 unit BC QID Qty: 250 RF: 0 furosemide 80 mg Tablet 40 mg PO BID@0830,1600 Qty: 60 RF: 0 No Action metoprolol tartrate 25 mg Tablet 12.5 mg PO BID RF: 0 Discharge Instructions Instructions: Tracheostomy Care (DC) Stand Alone Forms: Nursing Discharge Form Referrals: Caridad Sánchez MD, [place] [Primary Care Provider] - (The office will call you with an appointment) Activity:: Activity as Tolerated Equipment/Supplies:: No Equipment Needed Diet:: As Tolerated Discharge Orders Discharge Orders: Discharge Order (Routine); Ordered 12/15/19 Ordered By: Sb De Los Santos Discharge Data Discharge Date/Time-TO BE ENTERED AT DEPARTURE: 12/15/19 13:51 DS: Summary Status at Discharge Functional status at discharge: uses cane/walker Overall status at discharge: patient is back to baseline Mental Status: mental status grossly normal Speech and Movement: other (Aphonic) Mood: anxious mood Affect: normal affect Time Spent with Patient providing and/or coordinating discharge services: Greater than 30 minutes Exam Narrative Exam Narrative: On the day of discharge she was observed ambulating with a walker with respiratory therapy. She is quite kyphotic and hunched over. She appeared stable on the walker. When I went by her she stopped lifted her right hand and gave me the thumbs up. Her trach appears to be clear and she is oxygenating well on room air. She had no respiratory distress. Psych Mental Status: mental status grossly normal Speech and Movement: other (Aphonic) Mood: anxious mood Affect: normal affect DS: Data Vitals/I&O Vitals and I&O: Vital Signs Temperature 36.5 C 12/15/19 11:34 Temperature Source Tympanic 12/15/19 11:34 Pulse 88 12/15/19 11:34 Pulse Rhythm Regular 12/15/19 09:38 Respiratory Rate 18 12/15/19 11:34 Respiratory Effort Non-Labored 12/15/19 09:38 Respiratory Depth Normal 12/15/19 09:38 Respiratory Pattern Normal 12/15/19 09:38 Blood Pressure 115/73 12/15/19 11:34 Blood Pressure Mean 69 12/07/19 16:32 Blood Pressure Position Sitting 12/05/19 16:10 Pulse Oximetry 95 12/15/19 11:34 Oxygen Delivery Method Room Air 12/15/19 11:34 Oxygen Flow Rate 0 12/15/19 11:34 Fraction of Inspired Oxygen (FIO2) 21 12/15/19 09:50 Pain Level 0 12/15/19 11:34 Comment 12/09/19 04:10 Intake & Output 12/14/19 12/15/19 12/15/19 23:59 11:59 23:59 Intake Total 430 / 880 600 / 600 Output Total 500 / 500 Balance 430 / 430 100 / 100 Weight 84.4 kg Intake: Oral 430 / 880 600 / 600 Output: Urine 500 / 500 Other: Urine Color Yellow Urine Appearance Clear Clear Urine Odor Normal Comment voiding adequate amounts in BSC Stool Size Large Stool Characteristics Soft Liquid Brown Voiding Methods Bedside Commode Bedside Commode Data Completed and Pending Labs on day of discharge: Labs from last 24 hours 12/15/19 06:03 Potassium 3.9 PFSH Medical History Adynamic ileus (Resolved) Benign paroxysmal vertigo Benign paroxysmal vertigo, unspecified ear (Resolved) Cataract (Resolved) O.U 02/24/14; Dr. Martin left extraction 03/10/14; Dr. 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 L hip-mild acetabular spurring 2014 - severe arthritis at facet joints Lumbago Oral ulcer (Resolved) 12/07/16 Peripheral edema (Chronic 07/31/16) Peripheral venous insufficiency (Chronic 12/03/08) edema Polyp of colon (Resolved) colonoscopy of 01/09/11-multiple polyps at multiple locations. 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 Very hard to regulate and cannot afford alternatives. Understands the risks. Repeat again - PE. back on anticoagualtion Seizure (Resolved) ? of seizures; on medication for time; now off w/no change Stenosis of carotid artery (Chronic 01/20/16) carotid us 01/18 TMJ (temporomandibular joint disorder) (Resolved) right Tracheostomy hemorrhage (Acute) Transient ischemic attack (Resolved 08/04/03) POS MRI R TEMPORAL LOBE. NEG ECHO 2000 Urinary incontinence (Chronic 11/10/14) Vaginal lesion (Resolved) 03/22/16 Venous insufficiency Visual disturbance (Resolved) etiology unclear per -exam of 03/14/11 Vitamin D deficiency Vitamin D deficiency (Chronic 03/11/09) Vulvovaginitis (Resolved) Surgical History Extraction of cataract 02/24/14; LEFT EYE 03/10/14; RIGHT EYE History of bilateral tubal ligation (Resolved) Ligation of fallopian tube Family History Mother , 85 Vaginal cancer Father , 74 Heart disease COPD (chronic obstructive pulmonary disease) Sister , 63 Heart disease ASHD/CHF Lung cancer Maternal Grandmother Heart disease Paternal Grandmother Diabetes Son , 40 Substance abuse Heart disease Sister No problems noted. Sister No problems noted. Son RA (rheumatoid arthritis) Daughter No problems noted. Daughter No problems noted. Paternal Grandfather , 80 No problems noted. Social History Smoking/Tobacco Use Status: Former Tobacco Use Quit Date: 06/05/01 Second Hand Exposure: Yes Alcohol Intake: former Drug use: Never Substance use type: does not use Caregiver/Support person: No Household members: none Housing: house Do you need help understanding health information?: Rarely Pets and animals: No Sexually active: No Current gender identity: female What is your relationship status?: How often do you talk on the phone with friends or family?: decline to answer How often do you get together with friends or relatives?: once per week How often do you attend rastafarian or adventist services?: decline to answer Do you belong to any clubs or organized social groups?: no Panel score (0-1 are the most socially isolated patients): 0 What type of physical activity do you participate in: decline to answer Duration: decline to answer Frequency: decline to answer Bethany/Roman Catholic: Anabaptism Special bethany needs: No Seatbelt use: always Helmet use: No Drive intox or ride w/intox driver service technician: No Do you feel safe at home: Yes Do you feel safe in your relationship?: Yes
== END 2019-12-15 13:51 | disposition home health service (06) | DRG 178 ==
LOC: ICU 12-06 09:52 → MS 12-08 16:22 → ICU 12-16 13:35
PROVIDERS: Internal Medicine; Admitting Provider Family Medicine; PCP Family Medicine; Visit Provider Family Medicine
DX: J15.211 Pneumonia due to Methicillin susceptible Staphylococcus aureus (principal); N39.0 Urinary tract infection, site not specified; K56.0 Paralytic ileus; F41.9 Anxiety disorder, unspecified; C32.0 Malignant neoplasm of glottis; Z43.3 Encounter for attention to colostomy; R11.2 Nausea with vomiting, unspecified; J44.9 Chronic obstructive pulmonary disease, unspecified; I87.2 Venous insufficiency (chronic) (peripheral); R60.0 Localized edema; F32.9 Major depressive disorder, single episode, unspecified; L60.0 Ingrowing nail; I10 Essential (primary) hypertension; Z86.73 Personal history of transient ischemic attack (TIA), and cerebral infarction without residual deficits; Z93.1 Gastrostomy status; R13.14 Dysphagia, pharyngoesophageal phase; Z79.01 Long term (current) use of anticoagulants; Z86.711 Personal history of pulmonary embolism; Z51.5 Encounter for palliative care; Z71.3 Dietary counseling and surveillance; I87.8 Other specified disorders of veins
CPT/HCPCS: 36415; 80048; 84145; 87077; 92526; 92610; 97110; 97162; 97530; 97535; 99221; 99222; 99231; 99232; 99233; 99239; 99254; 71045; 74018; 74221; 83735; 84132; 85025; 87070; 87186; 87205; J3490; J7620; Q9967

== ENCOUNTER 2019-12-17 14:08 | Outpatient (REF) | payer OTHER, MEDICAID, SELFPAY ==
[2019-12-17 14:54] LABS: Abs Immature Grans 0.01 k/cumm (0.0-0.09); Absolute Basophil Count 0.03 k/cumm (0.0-0.2); Absolute Eosinophil Count 0.11 k/cumm (0.0-0.7); Absolute Monocyte Count 0.62 k/cumm (0.11-0.7); Absolute Neutrophil Count 5.22 k/cumm (1.2-6.7); Basophils % 0.4; Eosinophils % 1.5; HCT 33.2 % (36.0-46.0); HGB 9.7 g/dL (12.0-15.5); Immature Grans % 0.1 %; Mean Corp. HGB Concentration 29.2 g/dL (32.0-36.0); Mean Corpuscular Hemoglobin 26.5 pg (27.0-33.0); Mean Corpuscular Volume 90.7 fL (80-95); Mean Platelet Volume 9.7 fL (8.0-11.0); Monocytes % 8.3; Neutrophils % 69.7; Platelet Count 400 x1000/uL (130-400); RBC 3.66 m/cumm (4.00-5.20); RBC Distribution Width 16.3 % (11.7-14.6); White Blood Cell Count 7.49 k/cumm (4.4-10.8)
[2019-12-17 15:13] LABS: Anisocytosis 1+; Diff Comment RBC Morph Reviewed; Hypochromasia 2+; Polychromasia Present
[2019-12-18 12:35] LABS: ALT 40 U/L (14-59); AST 33 U/L (15-37); Albumin 2.7 g/dL (3.4-5.0); Alkaline Phosphatase 97 U/L (46-116); Anion Gap 7.2 mmol/L (3-11); BUN 11 mg/dL (7-18); Bilirubin, Total 0.2 mg/dL (0.2-1.0); CO2 29.8 mmol/L (21.0-32.0); CREATININE 0.77 mg/dL (0.55-1.02); Calcium 8.4 mg/dL (8.5-10.1); Chloride 104 mmol/L (98-107); Glucose 181 mg/dL (74-106); Potassium 3.8 mmol/L (3.5-5.1); Sodium 141 mmol/L (136-145); Total Protein 6.3 g/dL (6.4-8.2)
== END 2019-12-17 14:28 ==
LOC: LBN 14:08
PROVIDERS: PCP Family Medicine; Visit Provider Family Medicine
DX: J18.1 Lobar pneumonia, unspecified organism (principal); E43 Unspecified severe protein-calorie malnutrition; R73.09 Other abnormal glucose; E87.6 Hypokalemia
CPT/HCPCS: 80053; 83036; 85025

== ENCOUNTER 2019-12-26 20:48 | Emergency (ER) | payer OTHER, SELFPAY ==
[2019-12-26 20:56] VITALS: BP 198/95; PULSE 128; RESP 21; TEMP 36.3; O2SAT 99
--- NOTE | 2019-12-26 21:07 | W.ED.GENAD ---
Discharge Plan Disposition Patient Disposition: HOME Condition: Stable Discharge Details Chief Complaint: SOB Clinical Impression: Shortness of breath Primary Care Provider: Caridad Sánchez ED Provider: Sb Paul Home Meds and New Rx's Prescriptions: Continued albuterol sulfate 90 mcg/actuation HFA aerosol inhaler 2 puff IH QID PRN (Reason: shortness of breath or wheezing) Qty: 8.5 RF: 0 ipratropium-albuterol 0.5 mg-3 mg(2.5 mg base)/3 mL solution for nebulization 3 ml IH QID PRN (Reason: wheezing. J44.9) Qty: 180 RF: 8 guaifenesin [Tussin Mucus-Chest Congestion] 100 mg/5 mL liquid 400 mg PO BID Qty: 1000 RF: 0 nystatin 100,000 unit/mL suspension 5 ml BC QID RF: 0 metoprolol succinate 25 mg tablet extended release 24 hr 12.5 mg PO BID Qty: 90 RF: 4 Eliquis 5 mg tablet 5 mg PO BID Qty: 180 RF: 12 furosemide 40 mg Tablet 40 mg PO BID@0830,1600 Qty: 60 RF: 1 magnesium oxide 500 mg tablet 500 mg PO BID Qty: 60 RF: 1 metoclopramide HCl [Reglan] 5 mg tablet 5 mg PO QACHS Qty: 120 RF: 1 Discharge Instructions Additional Instructions: Follow up with your primary care provider within 1-2 weeks if you feel more ill, have worsening shortness of breath or severe pain return to the emergency department Medical Decision Making 79 yo female with hx of laryngeal cancer with trach who has been hospitalized numerous times recently for unclear care for her trach comes in with family with concerns for shortness of breath and gurgling breath sounds. She arrives tachycardic to the 120's otherwise stable. She is unable to speak which is normal for her and nods yes or no. Neema chest pain or fevers. She has no secretions or blood from the trach. She has soft nontender abdomen. Her lung sounds are diminished at the bases. Will obtian portable chest, obtain lab work and consult RT to perform trach suctioning pt has remained stable, labs show no acute abnormalities, troponin 0.09 which is what it seems to be at baseline on record review. She is currently sleeping and awakens easily with o2 saturation on room air of 93%. Feel she is stable for d/c. She will f/u with pcp and return precautions given Differential Diagnosis Differential Diagnosis: pna, aspiration, secretions Medical Records Medical records reviewed: Yes I reviewed the patient's medical records. Imaging Data Radiologic Study: Attestation: I personally reviewed and interpreted this imaging study as follows: Imaging: X-Ray Radiologist's impression: IMPRESSION: Slightly low lung volumes and scattered atelectasis/scarring. A component of mild interstitial edema is not excluded. No focal consolidation. Lab Data Lab results reviewed: Yes I reviewed the patient's lab results. HPI General Mode of arrival: wheelchair. Date/Time Provider Initiated Documentation: 12/26/19 20:48. Limitations to Documentation: no limitations. Information obtained by: patient and family. History of Present Illness 79 year old F presents to the emergency department with the chief complaint of shortness of breath, Patient started experiencing this day(s) (1) and it has been constant. No relieving factors improve symptom(s), No exacerbating factors reported . Related Data Home Medications Medication Instructions Recorded Confirmed albuterol sulfate 90 mcg/actuation 2 puff IH QID PRN #8.5 gm 08/01/19 12/22/19 aerosol inhaler ipratropium 0.5 mg-albuterol 3 mg 3 ml IH QID PRN #180 ml 11/28/19 12/22/19 (2.5 mg base)/3 mL nebulization soln guaifenesin 100 mg/5 mL oral liquid 400 mg PO BID #1000 ml 11/29/19 12/22/19 furosemide 40 mg PO BID@0830,1600 #60 tab 12/15/19 12/22/19 magnesium oxide 500 mg PO BID #60 tab 12/15/19 12/22/19 metoclopramide HCl [Reglan] 5 mg PO QACHS #120 tab 12/15/19 12/22/19 metoprolol succinate 25 mg 12.5 mg PO BID #90 tab 12/17/19 12/22/19 tablet,extended release 24 hr nystatin 100,000 unit/mL oral 5 ml BC QID ml 12/17/19 12/22/19 suspension apixaban 5 mg tablet 5 mg PO BID #180 tab 12/24/19 Previous Rx's Medication Instructions Recorded albuterol sulfate 90 mcg/actuation 2 puff IH QID PRN #8.5 gm 08/01/19 aerosol inhaler ipratropium 0.5 mg-albuterol 3 mg 3 ml IH QID PRN #180 ml 11/28/19 (2.5 mg base)/3 mL nebulization soln guaifenesin 100 mg/5 mL oral liquid 400 mg PO BID #1000 ml 11/29/19 furosemide 40 mg PO BID@0830,1600 #60 tab 12/15/19 magnesium oxide 500 mg PO BID #60 tab 12/15/19 metoclopramide HCl [Reglan] 5 mg PO QACHS #120 tab 12/15/19 metoprolol succinate 25 mg 12.5 mg PO BID #90 tab 12/17/19 tablet,extended release 24 hr apixaban 5 mg tablet 5 mg PO BID #180 tab 12/24/19 Allergies Allergy/AdvReac Type Severity Reaction Status Date / Time atorvastatin AdvReac Intermediate pt does Unverified 12/22/19 16:10 not think she has an allergy to this med General Stated Complaint: SOB SUHA: 2 Review of Systems All systems reviewed & are unremarkable except as noted in HPI and below Constitutional Constitutional: Denies chills and Denies fever(s) Gastrointestinal Gastrointestinal: Denies vomiting Musculoskeletal Musculoskeletal: Denies joint swelling Integumentary/Breasts Skin/Breast: Denies rash PFSH Social History Smoking/Tobacco Use Status: Former Tobacco Use Quit Date: 06/05/01 Second Hand Exposure: Yes Alcohol Intake: former Drug use: Never Substance use type: does not use Caregiver/Support person: No Household members: none Housing: house Do you need help understanding health information?: Rarely Pets and animals: No Sexually active: No Current gender identity: female What is your relationship status?: How often do you talk on the phone with friends or family?: decline to answer How often do you get together with friends or relatives?: once per week How often do you attend religious or jehovah's witness services?: decline to answer Do you belong to any clubs or organized social groups?: no Panel score (0-1 are the most socially isolated patients): 0 What type of physical activity do you participate in: decline to answer Duration: decline to answer Frequency: decline to answer Bethany/Confucianism: Buddhism Special bethany needs: No Seatbelt use: always Helmet use: No Drive intox or ride w/intox armor reconnaissance vehicle driver: No Do you feel safe at home: Yes Do you feel safe in your relationship?: Yes Exam Const General: no acute distress Orientation: alert HENMT Head: normal to inspection Ears: external ears normal General nose exam: external nose normal Mouth: moist mucous membranes Eyes General: appearance normal, both eyes and all related structures Resp Effort & Inspection: normal respiratory effort Cardio Rate: regular rate Skin General skin exam: no rashes or lesions noted Neuro General: alert Extrem General: normal to inspection Psych Mental Status: mental status grossly normal Course Vital Signs Vital signs: Vital Signs Temperature 36.3 C L 12/26/19 20:56 Pulse 128 H 12/26/19 20:56 Respiratory Rate 12/26/19 20:56 Blood Pressure 198/95 H 12/26/19 20:56 Pulse Oximetry 99 12/26/19 20:56 Temperature 36.3 C L 12/26/19 20:56 Temperature Source Temporal Artery Scan 12/26/19 20:56 Pulse 128 H 12/26/19 20:56 Respiratory Rate 12/26/19 20:56 Blood Pressure 198/95 H 12/26/19 20:56 Blood Pressure Position Sitting 12/26/19 20:56 Pulse Oximetry 99 12/26/19 20:56 Oxygen Delivery Method Room Air 12/26/19 20:56 Oxygen Flow Rate 0 12/26/19 20:56 Pain Level 0 12/26/19 20:56
[2019-12-26 21:16] VITALS: RESP 21
[2019-12-26 21:21] LABS: BE (Venous) 5.2 mmol/L (-3-3); HCO3 (Venous) 30 mmol/L (22-28); O2 Sat (Venous) 98 % (70-80); TCO2 (Venous) 28 mmol/L (22-29); pCO2 (Venous) 46 mm/Hg (34-47); pH (Venous) 7.42 (7.35-7.45); pO2 (Venous) 91 mm/Hg (28-44)
[2019-12-26 21:23] LABS: Abs Immature Grans 0.01 k/cumm (0.0-0.09); Absolute Basophil Count 0.02 k/cumm (0.0-0.2); Absolute Eosinophil Count 0.13 k/cumm (0.0-0.7); Absolute Lymphocyte Count 1.58 k/cumm (1.2-3.4); Absolute Monocyte Count 0.79 k/cumm (0.11-0.7); Absolute Neutrophil Count 5.34 k/cumm (1.2-6.7); Basophils % 0.3; Eosinophils % 1.7; HCT 32.6 % (36.0-46.0); HGB 9.8 g/dL (12.0-15.5); Immature Grans % 0.1 %; Lymphocytes % 20.1; Mean Corp. HGB Concentration 30.1 g/dL (32.0-36.0); Mean Corpuscular Hemoglobin 27.1 pg (27.0-33.0); Mean Corpuscular Volume 90.1 fL (80-95); Mean Platelet Volume 9.3 fL (8.0-11.0); Neutrophils % 67.8; Platelet Count 327 x1000/uL (130-400); RBC 3.62 m/cumm (4.00-5.20); RBC Distribution Width 16.7 % (11.7-14.6); White Blood Cell Count 7.87 k/cumm (4.4-10.8)
--- NOTE | 2019-12-26 21:49 | DI.RAD_ITS ---
EXAM: XR PORTABLE CHEST AP CLINICAL HISTORY: shortness of breath TECHNIQUE: COMPARISON: XR PORTABLE CHEST AP from 12/11/2019 FINDINGS: Single portable upright view was obtained. Tracheostomy tube noted in position. Lungs are grossly c lear with scarring again noted. Cardiac size within normal limits. IMPRESSION: No evidence of acute change. No change from 12/11/2019
[2019-12-26 22:02] LABS: ALT 24 U/L (14-59); AST 35 U/L (15-37); Albumin 2.5 g/dL (3.4-5.0); Alkaline Phosphatase 97 U/L (46-116); Anion Gap 8.3 mmol/L (3-11); BUN 12 mg/dL (7-18); Bilirubin, Total 0.2 mg/dL (0.2-1.0); CO2 30.7 mmol/L (21.0-32.0); CREATININE 0.92 mg/dL (0.55-1.02); Calcium 8.4 mg/dL (8.5-10.1); Chloride 104 mmol/L (98-107); Estimated GFR 58.59 (mL/min/1.73m2); Glucose 142 mg/dL (74-106); Potassium 3.1 mmol/L (3.5-5.1); Sodium 143 mmol/L (136-145); Total Protein 6.6 g/dL (6.4-8.2)
[2019-12-26 22:08] LABS: Troponin I 0.09 ng/Ml (<0.06)
--- NOTE | 2019-12-26 22:18 | DI.VRAD_ITS ---
PROCEDURE INFORMATION: Exam: XR Chest, 1 View Exam date and time: 12/26/2019 9:49 PM Age: 79 years old Clinical indication: Shortness of breath TECHNIQUE: Imaging protocol: XR of the chest Views: 1 view. COMPARISON: XR PORTABLE CHEST AP 12/11/2019 5:49 PM FINDINGS: Tubes, catheters and devices: Tracheostomy tube is noted in unchanged position. Lungs: Lung volumes are slightly low. Scattered linear opacities likely represent areas of atelectasis/scarring. Component of mild interstitial edema not excluded. No focal airspace consolidation is seen. Pleural space: Unremarkable. No pleural effusion. No pneumothorax. Heart/Mediastinum: Heart size is within normal limits. Vascular calcifications are present in the mildly tortuous thoracic aorta. Bones/joints: Degenerative changes are present in the spine and shoulders. No acute fractures are seen. Soft tissues: Surgical clips are noted projecting over the base of the neck. IMPRESSION: Slightly low lung volumes and scattered atelectasis/scarring. A component of mild interstitial edema is not excluded. No focal consolidation. Dictated and Authenticated by: Caleb Daily MD. Ordering:KATHRYN Basurto MD
--- NOTE | 2019-12-26 22:29 | RESPIRATORY ---
12/26/2019-Pt here for complaints of thick secretions. Clear b/s with no visible secretions to be suctioned. Trach and inner cannula is clear and clean. SPO2 93% on RA, HR 91, BP 149/54.
== END 2019-12-26 22:50 | disposition home or self-care (01) ==
PROVIDERS: Emergency Provider Emergency Medicine; PCP Family Medicine
DX: R06.02 Shortness of breath (principal); C32.9 Malignant neoplasm of larynx, unspecified; Z93.0 Tracheostomy status
CPT/HCPCS: 36415; 80053; 82805; 93005; 99285; 71045; 84484; 85025; 93010

== ENCOUNTER 2020-02-27 15:00 | Outpatient (REF) | payer OTHER, MEDICAID, SELFPAY ==
[2020-02-27 15:41] LABS: Abs Immature Grans 0.01 k/cumm (0.0-0.09); Absolute Basophil Count 0.02 k/cumm (0.0-0.2); Absolute Eosinophil Count 0.09 k/cumm (0.0-0.7); Absolute Lymphocyte Count 2.21 k/cumm (1.2-3.4); Absolute Monocyte Count 0.82 k/cumm (0.11-0.7); Absolute Neutrophil Count 5.31 k/cumm (1.2-6.7); Basophils % 0.2; Eosinophils % 1.1; HCT 33.5 % (36.0-46.0); HGB 10.5 g/dL (12.0-15.5); Immature Grans % 0.1 %; Lymphocytes % 26.1; Mean Corp. HGB Concentration 31.3 g/dL (32.0-36.0); Mean Corpuscular Hemoglobin 27.1 pg (27.0-33.0); Mean Corpuscular Volume 86.6 fL (80-95); Mean Platelet Volume 10.4 fL (8.0-11.0); Monocytes % 9.7; Neutrophils % 62.8; Platelet Count 369 x1000/uL (130-400); RBC 3.87 m/cumm (4.00-5.20); RBC Distribution Width 18.7 % (11.7-14.6); White Blood Cell Count 8.46 k/cumm (4.4-10.8)
[2020-02-27 15:52] LABS: ALT 17 U/L (14-59); AST 22 U/L (15-37); Albumin 2.8 g/dL (3.4-5.0); Alkaline Phosphatase 98 U/L (46-116); Anion Gap 8.1 mmol/L (3-11); BUN 11 mg/dL (7-18); Bilirubin, Total 0.4 mg/dL (0.2-1.0); CO2 28.9 mmol/L (21.0-32.0); CREATININE 1.14 mg/dL (0.55-1.02); Calcium 8.6 mg/dL (8.5-10.1); Chloride 100 mmol/L (98-107); Estimated GFR 45.63 (mL/min/1.73m2); Glucose 114 mg/dL (74-106); Potassium 3.3 mmol/L (3.5-5.1); Sodium 137 mmol/L (136-145); Total Protein 7.4 g/dL (6.4-8.2)
== END 2020-02-27 15:20 ==
LOC: LBN 15:00
PROVIDERS: PCP Family Medicine; Visit Provider Otolaryngology Otolaryngology/Facial Plastic Surgery
DX: C32.9 Malignant neoplasm of larynx, unspecified (principal); E43 Unspecified severe protein-calorie malnutrition
CPT/HCPCS: 80053; 85025

== ENCOUNTER 2020-03-16 15:12 | Emergency (ER) | payer OTHER, MEDICAID, SELFPAY ==
--- NOTE | 2020-03-16 | DI.RAD_ITS ---
EXAM: RF Abdomen Flat Plate CLINICAL HISTORY: LOCATION OF FEEDING TUBE. TECHNIQUE: 2D and realtime digital imaging was performed. CONTRAST MATERIAL: Oral barium Oral water soluble contrast was administered. COMPARISON: No exams were available for comparison FINDINGS: Three views of the abdomen were obtained following injection of contrast material into indwelling gas trostomy tube. There is no evidence of extravasation or obstruction. The G tube appears appropriate ly positioned. IMPRESSION:
[2020-03-16 15:20] VITALS: BP 151/59; PULSE 89; RESP 16; TEMP 36; O2SAT 93
--- NOTE | 2020-03-16 15:37 | ED.GENADUL_ITS ---
Discharge Plan Disposition Patient Disposition: HOME Condition: Good Discharge Details Chief Complaint: Abd Prob Clinical Impression: Attention to gastrostomy tube Primary Care Provider: Caridad Sánchez ED Provider: Flaca Johnson Home Meds and New Rx's Prescriptions: Continued albuterol sulfate 90 mcg/actuation HFA aerosol inhaler 2 puff IH QID PRN (Reason: shortness of breath or wheezing) Qty: 8.5 RF: 0 metoclopramide HCl [Reglan] 5 mg tablet 5 mg PO BID Qty: 180 RF: 4 ipratropium-albuterol 0.5 mg-3 mg(2.5 mg base)/3 mL solution for nebulization 3 ml IH QID PRN (Reason: wheezing. J44.9) Qty: 180 RF: 8 guaifenesin [Tussin Mucus-Chest Congestion] 100 mg/5 mL liquid 400 mg PO BID Qty: 1000 RF: 0 metoprolol succinate 25 mg tablet extended release 24 hr 12.5 mg PO BID Qty: 90 RF: 4 Eliquis 5 mg tablet 5 mg PO BID Qty: 180 RF: 12 nystatin 100,000 unit/mL suspension 5 ml BC QID Qty: 250 RF: 4 furosemide 40 mg tablet 40 mg PO BID@0830,1600 Qty: 180 RF: 5 Discharge Instructions Additional Instructions: Tube is in appropriate placement on imaging today. Please continue for care of the gastrostomy tube has as previously advised. Please keep your upcoming appointment and discuss any concerns at that time. If you develop fever/chills, increased pain, difficulty administering feeds through the tube, abdominal pain or other new/worsening symptom please seek care urgently once again. Otherwise, please follow-up with your primary care for reevaluation as needed. Referrals: Caridad Sánchez MD, [place] [Primary Care Provider] - Medical Decision Making <SILVERIO Hoffmann - Last Filed: 03/16/20 16:52> Patient is an 80-year-old female, status post laryngectomy, presenting for evaluation of possible fluid feeding tube dislodgment. Was evaluated by nursing staff today and they advised no feeding should go through this until its further evaluated. She did have some bleeding through this over the weekend. States that this has been intermittent. She is anticoagulated. Patient denies any larry n. No fevers or chills. Denies any nausea vomiting. No change in stooling habits. Has not noted any bleeding in the past 2 days. On exam, patient appears nontoxic. She is able to communicate with both the aid of her son as well as lipreading. Abdomen is benign. I did not see any blood around the G-tube insertion. No skin breakdown. Plan for imaging with [facility]. Will assess with GI to evaluate location of the 2. FINDINGS: Tubes, catheters and devices: Percutaneous gastrostomy tube in place. Following administration of contrast, contrast appears to be pooling within the stomach. Gastrointestinal tract: Nonobstructive bowel gas pattern. Bones/joints: No acute osseus lesions or fractures. Soft tissues: Unremarkable. IMPRESSION: Satisfactory position of percutaneous gastrostomy tube with pooling of contrast within the stomach. Discussed these findings with the patient and her son. They are reassured by location. They were given return precautions. I did advise that they keep u pcoming appointment with the surgeon in 2 weeks for reevaluation. We will continue with the gastrostomy tube tube care as previously advised. All of their questions and concerns were addressed in agreement this plan. <Howard Tsai MD - Last Filed: 03/16/20 16:28> Patient seen, examined, discussed with Ms. Johnson. I agree with her assessment and plan including a radiograph with GI contrast to evaluate for G-tube function. HPI <SILVERIO Hoffmann - Last Filed: 03/16/20 16:52> General Mode of arrival: wheelchair . Date/Time Provider Initiated Documentation: 03/16/20 15:23 . Limitations to Documentation: physical limitation (Patient is able to mouth words but has tracheostomy) . Information obtained by: patient, family (Son) and RN notes reviewed . HPI Narrative: Patient is a pleasant 80-year-old female, presenting for evaluation of her feeding tube. She is brought in by her son. 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 She reports that it was bleeding over the weekend. She denies any pain. Reports it was placed in September of last year. States that it has bled intermittently since placement. Has always been able to receive feedings. Last received feeding through this 2 days ago. She was evaluated by nursing staff today who is concerned that this may have become dislodged and advised they seek care in the emergency department for evaluation. Related Data Home Medications Medication Instructions Recorded Confirmed albuterol sulfate 90 mcg/actuation 2 puff IH QID PRN #8.5 gm 08/01/19 03/16/20 aerosol inhaler ipratropium 0.5 mg-albuterol 3 mg 3 ml IH QID PRN #180 ml 11/28/19 03/16/20 (2.5 mg base)/3 mL nebulization soln guaifenesin 100 mg/5 mL oral liquid 400 mg PO BID #1000 ml 11/29/19 03/16/20 metoprolol succinate 25 mg 12.5 mg PO BID #90 tab 12/17/19 03/16/20 tablet,extended release 24 hr apixaban 5 mg tablet 5 mg PO BID #180 tab 12/24/19 03/16/20 nystatin 100,000 unit/mL oral 5 ml BC QID #250 ml 01/07/20 03/16/20 suspension furosemide 40 mg tablet 40 mg PO BID@0830,1600 #180 tab 02/09/20 03/16/20 metoclopramide HCl 5 mg tablet 5 mg PO BID #180 tab 02/19/20 03/16/20 Previous Rx's Medication Instructions Recorded albuterol sulfate 90 mcg/actuation 2 puff IH QID PRN #8.5 gm 08/01/19 aerosol inhaler ipratropium 0.5 mg-albuterol 3 mg 3 ml IH QID PRN #180 ml 11/28/19 (2.5 mg base)/3 mL nebulization soln guaifenesin 100 mg/5 mL oral liquid 400 mg PO BID #1000 ml 11/29/19 metoprolol succinate 25 mg 12.5 mg PO BID #90 tab 12/17/19 tablet,extended release 24 hr apixaban 5 mg tablet 5 mg PO BID #180 tab 12/24/19 nystatin 100,000 unit/mL oral 5 ml BC QID #250 ml 01/07/20 suspension furosemide 40 mg tablet 40 mg PO BID@0830,1600 #180 tab 02/09/20 metoclopramide HCl 5 mg tablet 5 mg PO BID #180 tab 02/19/20 Allergies Allergy/AdvReac Type Severity Reaction Status Date / Time atorvastatin AdvReac Intermediate pt does Unverified 05/12/20 15:30 not think she has an allergy to this med General Stated Complaint: Abd Prob SUHA: 3 Review of Systems <SILVERIO Hoffmann - Last Filed: 03/16/20 16:52> Constitutional Constitutional: Reports as per HPI, Denies chills, Denies fatigue, Denies fever(s) and Denies headache(s) ENT Ears, Nose, Mouth, and Throat: Denies headache(s) Cardiovascular Cardiovascular: Reports as per HPI, Denies chest pain and Denies dyspnea Respiratory Respiratory: Reports as per HPI, Denies cough and Denies dyspnea Gastrointestinal Gastrointestinal: Reports as per HPI Musculoskeletal Musculoskeletal: Reports as per HPI and Denies back pain Integumentary/Breasts Skin/Breast: Reports as per HPI and Denies rash Neurologic Neurologic: Reports as per HPI and Denies headache(s) Endocrine Endocrine: Denies fatigue PFSH <SILVERIO Hoffmann - Last Filed: 03/16/20 16:52> Medical History (Updated 03/16/20 @ 16:44 by SILVERIO Hoffmann) Adynamic ileus (Resolved) Benign paroxysmal vertigo Benign paroxysmal vertigo, unspecified ear (Resolved) Cataract (Resolved) O.U 02/24/14; Dr. Martin left extraction 03/10/14; Dr. 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 L hip-mild acetabular spurring 2015 - severe arthritis at facet joints Lumbago Nausea and vomiting (Inactive) Oral ulcer (Resolved) 12/07/16 Peripheral edema (Chronic 07/31/16) Peripheral venous insufficiency (Chronic 12/03/08) edema Pneumonia of right lower lobe due to infectious organism (Resolved) Polyp of colon (Resolved) colonoscopy of 01/09/11-multiple polyps at multiple locations. 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 Very hard to regulate and cannot afford alternatives. Understands the risks. Repeat again - PE. back on anticoagualtion Seizure (Resolved) ? 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 NEG ECHO 2000 Urinary incontinence (Chronic 11/10/14) Vaginal lesion (Resolved) 03/22/16 Venous insufficiency Visual disturbance (Resolved) etiology unclear per -exam of 03/14/11 Vitamin D deficiency Vitamin D deficiency (Chronic 03/11/09) Vulvovaginitis (Resolved) Surgical History Extraction of cataract 02/24/14; LEFT EYE 03/10/14; RIGHT EYE History of bilateral tubal ligation (Resolved) Ligation of fallopian tube Social History Smoking/Tobacco Use Status: Former Tobacco Use Quit Date: 06/05/01 Second Hand Exposure: Yes Alcohol Intake: former Drug use: Never Substance use type: does not use Caregiver/Support person: No Household members: none Housing: house Do you need help understanding health information?: Rarely Pets and animals: No Sexually active: No Current gender identity: female What is your relationship status?: How often do you talk on the phone with friends or family?: decline to answer How often do you get together with friends or relatives?: once per week How often do you attend caodaism or mosque services?: decline to answer Do you belong to any clubs or organized social groups?: no Panel score (0-1 are the most socially isolated patients): 0 What type of physical activity do you participate in: decline to answer Duration: decline to answer Frequency: decline to answer Bethany/Taoism: Hindu Special bethany needs: No Seatbelt use: always Helmet use: No Drive intox or ride w/intox bulk tank driver: No Do you feel safe at home: Yes Do you feel safe in your relationship?: Yes Exam <SILVERIO Hoffmann - Last Filed: 03/16/20 16:52> Const General: cooperative, healthy appearing, comfortable, no acute distress and well developed Nutritional Appearance: well nourished and overweight Orientation: alert and awake HENAR Head: normal to inspection Mouth: moist mucous membranes Resp Effort & Inspection: normal respiratory effort, able to speak in complete sentences and no respiratory distress Auscultation: clear to auscultation bilaterally, no rales, no rhonchi and no wheezes Cardio Rate: regular rate Rhythm: regular rhythm Heart Sounds: S1 normal and S2 normal GI Inspection: normal to inspection (G tube without abnormality on exam, appears to be well positioned. No bleed), no edema, non-distended and no visible pulsation Palpation: soft, no hepatosplenomegaly, not firm, no guarding, no masses, not rigid and nontender Percussion: normal to percussion Skin General skin exam: no rashes or lesions noted Trauma: no lacerations or abrasions Neuro General: patient alert and patient awake Cognition: normal cognition Speech: speech normal (baseline for patient) Psych Appearance: grossly normal and well kempt Mental Status: mental status grossly normal Speech and Movement: speech and movement normal Course <SILVERIO Hoffmann - Last Filed: 03/16/20 16:52> Vital Signs Vital signs: Vital Signs Temperature 36 C L 03/16/20 15:20 Pulse 89 03/16/20 15:20 Respiratory Rate 16 03/16/20 15:20 Blood Pressure 151/59 H 03/16/20 15:20 Pulse Oximetry 93 L 03/16/20 15:20 Temperature 36 C L 03/16/20 15:20 Pulse 89 03/16/20 15:20 Respiratory Rate 16 03/16/20 15:20 Respiratory Effort Non-Labored 03/16/20 15:20 Blood Pressure 151/59 H 05/12/20 15:20 Blood Pressure Position Sitting 03/16/20 15:20 Pulse Oximetry 93 L 03/16/20 15:20 Oxygen Delivery Method Room Air 03/16/20 15:20 Oxygen Flow Rate 0 03/16/20 15:20 Pain Level 0 03/16/20 15:20
[2020-03-16] MEDS: Omnipaque 350 MG/ML 50 ML BTL IJ (16:29)
--- NOTE | 2020-03-16 16:37 | DI.VRAD_ITS ---
PROCEDURE INFORMATION: Exam: XR Abdomen, 1 View Exam date and time: 03/16/2020 3:53 PM Age: 80 years old Clinical indication: Other: Assess feeding tube location/patency TECHNIQUE: Imaging protocol: XR of the abdomen. Views: Frontal supine view of the abdomen. 1 View. Other contrast: Catheter, FEEDING TUBE, 50 ML ; COMPARISON: CR XR ABDOMEN FLAT PLATE 12/07/2019 10:26 AM FINDINGS: Tubes, catheters and devices: Percutaneous gastrostomy tube in place. Following administration of contrast, contrast appears to be pooling within the stomach. Gastrointestinal tract: Nonobstructive bowel gas pattern. Bones/joints: No acute osseus lesions or fractures. Soft tissues: Unremarkable. IMPRESSION: Satisfactory position of percutaneous gastrostomy tube with pooling of contrast within the stomach. Dictated and Authenticated by: Jonas Barth MD. Ordering:MATTHEW Thayer MD
== END 2020-03-16 17:00 | disposition home or self-care (01) ==
PROVIDERS: Emergency Provider Physician Assistant; PCP Family Medicine
DX: K94.23 Gastrostomy malfunction (principal); Z71.1 Person with feared health complaint in whom no diagnosis is made; C32.9 Malignant neoplasm of larynx, unspecified; Z90.02 Acquired absence of larynx; I10 Essential (primary) hypertension
CPT/HCPCS: 99283; 49465; 74018; Q9967

== ENCOUNTER 2020-04-21 17:46 | Emergency (ER) | payer OTHER, MEDICAID, SELFPAY ==
[2020-04-21] VITALS (23 sets, daily range): BP systolic 118–138; BP diastolic 42–92; PULSE 59–82; RESP 12–36; TEMP 37; O2SAT 94–99
--- NOTE | 2020-04-21 18:42 | ED.GENADUL_ITS ---
Discharge Plan Disposition Patient Disposition: HOME Condition: Good Discharge Details Chief Complaint: Abd Prob Clinical Impression: Acute UTI, Abdominal pain, Loose stools Primary Care Provider: Caridad Sánchez ED Provider: Erlin Luna [place] Meds and New Rx's Prescriptions: New cephalexin 250 mg/5 mL suspension for reconstitution 500 mg G-tube TID Qty: 100 RF: 0 Continued albuterol sulfate 90 mcg/actuation HFA aerosol inhaler 2 puff IH QID PRN (Reason: shortness of breath or wheezing) Qty: 8.5 RF: 0 metoclopramide HCl [Reglan] 5 mg tablet 5 mg PO BID Qty: 180 RF: 4 ipratropium-albuterol 0.5 mg-3 mg(2.5 mg base)/3 mL solution for nebulization 3 ml IH QID PRN (Reason: wheezing. J44.9) Qty: 180 RF: 8 guaifenesin [Tussin Mucus-Chest Congestion] 100 mg/5 mL liquid 400 mg PO BID Qty: 1000 RF: 0 metoprolol succinate 25 mg tablet extended release 24 hr 12.5 mg PO BID Qty: 90 RF: 4 Eliquis 5 mg tablet 5 mg PO BID Qty: 180 RF: 12 nystatin 100,000 unit/mL suspension 5 ml BC QID Qty: 250 RF: 4 furosemide 40 mg tablet 40 mg PO BID@0830,1600 Qty: 180 RF: 5 Discharge Instructions Instructions: Urinary Tract Infection in Women (ED), Abdominal Pain (ED) Additional Instructions: Your work-up in the ED is unremarkable other than evidence of a urinary tract infection. We will place you on cephalexin suspension 3 times a day for treatment of this. Continue other medications and medical plan as before. Follow-up with primary care next week. Return to ED for altered mental status, difficulty breathing, persistent vomiting, worsening abdominal pain, other concerns or problems. Referrals: Caridad Sánchez MD, [place] [Primary Care Provider] - Medical Decision Making <Aubree Nunez DO - Last Filed: 04/21/20 20:17> 1800 -- 80-year-old female with a history of laryngeal cancer with tracheostomy and G-tube presents for left mid to lower abdominal pain and yellow slimy stool today. Patient appears nontoxic. Afebrile. Abdomen soft and tender in the left mid and lower quadrant and suprapubic region. Differential diagnosis includes gastroenteritis, diverticulitis, colitis, UTI, pyelonephritis, etc. Will place an IV, bolus IV fluids, screening labs, urinalysis and CT abdomen and pelvis in addition to IV Tylenol. Difficulty initially obtaining IV. Labs and imaging reviewed. Normal white blood cell count. Hemoglobin 9.6 which is near baseline. Potassium 3.1, will replete. Lipase negative. CT notes G- tube in expected position, no other acute findings. 2009 --patient reassessed -she states she feels better. No acute complaints at this time. Awaiting urinalysis. Will attempt straight cath. 2014 -- Case endorsed to Dr. Luna to follow-up on urinalysis and final disposition Medical Records Medical records reviewed: Yes I reviewed the patient's medical records. Imaging Data Radiologic Study: Radiologist's impression: CT Abdomen And Pelvis With Contrast Exam date and time: 04/21/2020 18:31 Age: 80 years old Clinical indication: Abdominal pain; Patient HX: Llq/suprapubic abd pain/g tube TECHNIQUE: Imaging protocol: Computed tomography of the abdomen and pelvis with intravenous contrast. Radiation optimization: All CT scans at this facility use at least one of these dose optimization techniques: automated exposure control; mA and/or kV adjustment per patient size (includes targeted exams where dose is matched to clinical indication); or iterative reconstruction. Contrast material: OMNI 350; Contrast volume: 100 ml; Contrast route: INTRAVENOUS (IV); COMPARISON: CR RF ABDOMEN 03/16/2020 16:16 FINDINGS: Lungs: Motion in the lung bases, probable mild compressive atelectasis dependently. Pleural space: Trace pleural fluid is possible in the lung bases. Heart: Mild cardiomegaly. Liver: No mass. Gallbladder and bile ducts: Cholelithiasis. No pericholecystic edema. Pancreas: No ductal dilation. No masses. Spleen: No splenomegaly or focal lesions. Adrenals: No mass. Kidneys and ureters: No gross renal masses or significant dilation of the collecting system. Stomach and bowel: Percutaneous gastrostomy in the expected position. No specific evidence of gastritis or suspicious collections around the stomach. Slight motion artifact. There is no significant acute pathology in small bowel or colon. No significant enteritis, colitis or obstruction. Appendix: No evidence of appendicitis. Intraperitoneal space: No free air. No significant fluid collection. Vasculature: Moderate aortoiliac atherosclerosis. Lymph nodes: No significantly enlarged lymph nodes. Bladder: The urinary bladder is distended. No significant urinary bladder wall thickening is appreciated for the degree of distension. No significant edema around the urinary bladder. Reproductive: Unremarkable as visualized. Bones/joints: The bones are demineralized. Lumbar dextroscoliosis. Degenerative changes in the hips and spine. Multilevel disc disease in the lumbar spine. Soft tissues: No suspicious lesions. Other findings: Mild generalized motion artifact. IMPRESSION: 1. No acute findings. 2. Percutaneous gastrostomy in the expected position. 3. Additional findings as described. Lab Data Lab results reviewed: Yes I reviewed the patient's lab results. <rElin Luna MD - Last Filed: 04/21/20 21:27> Patient signed out to me pending cath urine specimen. Laboratory studies and CT scan unremarkable at time of signout. EKG unremarkable. Straight cath urinalysis positive with nitrites as well as white cells and bacteria. Will treat with cephalexin suspension through the G-tube. First dose given here. Diagnosis, treatment and follow-up plan discussed with patient and son. Discharged from ED in good condition. Lab Data Lab results reviewed: Yes I reviewed the patient's lab results. ECG Data Attestation: I personally reviewed and interpreted this ECG (s) as follows: Prior ECG tracings: not available for review Interpretation: Sinus rhythm at 69. Normal axis and intervals. Nonspecific ST changes. Nothing acute. Nondiagnostic. HPI <Aubree Nunez DO - Last Filed: 04/21/20 20:17> General Mode of arrival: ambulatory . Date/Time Provider Initiated Documentation: 04/21/20 17:47 . Limitations to Documentation: no limitations . Information obtained by: patient . HPI Narrative: Pt is a 80yo F with a history of laryngeal cancer with tracheostomy and G-tube, CVA presents for left mid and lower abdominal pain with yellow slimy stools today. Denies fever, nausea, vomiting, rectal bleeding or known urinary symptoms. Report was given per [facility] with concern for pus in her stool. Patient describes it as yellow and slimy. She denies any recent surgery, recent travel, recent hospital admission. Related Data Home Medications Medication Instructions Recorded Confirmed albuterol sulfate 90 mcg/actuation 2 puff IH QID PRN #8.5 gm 08/01/19 04/21/20 aerosol inhaler ipratropium 0.5 mg-albuterol 3 mg 3 ml IH QID PRN #180 ml 11/28/19 04/21/20 (2.5 mg base)/3 mL nebulization soln guaifenesin 100 mg/5 mL oral liquid 400 mg PO BID #1000 ml 11/29/19 04/21/20 metoprolol succinate 25 mg 12.5 mg PO BID #90 tab 12/17/19 04/21/20 tablet,extended release 24 hr apixaban 5 mg tablet 5 mg PO BID #180 tab 12/24/19 03/16/20 nystatin 100,000 unit/mL oral 5 ml BC QID #250 ml 01/07/20 04/21/20 suspension furosemide 40 mg tablet 40 mg PO BID@0830,1600 #180 tab 02/09/20 04/21/20 metoclopramide HCl 5 mg tablet 5 mg PO BID #180 tab 02/19/20 04/21/20 cephalexin 500 mg G-TUBE TID #100 ml 04/21/20 Previous Rx's Medication Instructions Recorded albuterol sulfate 90 mcg/actuation 2 puff IH QID PRN #8.5 gm 08/01/19 aerosol inhaler ipratropium 0.5 mg-albuterol 3 mg 3 ml IH QID PRN #180 ml 11/28/19 (2.5 mg base)/3 mL nebulization soln guaifenesin 100 mg/5 mL oral liquid 400 mg PO BID #1000 ml 11/29/19 metoprolol succinate 25 mg 12.5 mg PO BID #90 tab 12/17/19 tablet,extended release 24 hr apixaban 5 mg tablet 5 mg PO BID #180 tab 12/24/19 nystatin 100,000 unit/mL oral 5 ml BC QID #250 ml 01/07/20 suspension furosemide 40 mg tablet 40 mg PO BID@0830,1600 #180 tab 02/09/20 metoclopramide HCl 5 mg tablet 5 mg PO BID #180 tab 02/19/20 cephalexin 500 mg G-TUBE TID #100 ml 04/21/20 Allergies Allergy/AdvReac Type Severity Reaction Status Date / Time atorvastatin AdvReac Intermediate pt does Unverified 04/21/20 17:57 not think she has an allergy to this med General Stated Complaint: Abd Prob SUHA: 3 Review of Systems <Aubree Nunez DO - Last Filed: 04/21/20 20:17> All systems reviewed & are unremarkable except as noted in HPI and below Constitutional Constitutional: Reports as per HPI, Denies chills and Denies fever(s) Eyes Eyes: Denies blurry vision ENT Ears, Nose, Mouth, and Throat: Denies dizziness, Denies sore throat and Denies throat swelling Cardiovascular Cardiovascular: Denies chest pain and Denies dyspnea Respiratory Respiratory: Denies cough and Denies dyspnea Gastrointestinal Gastrointestinal: Reports abdominal pain, Reports diarrhea and Denies vomiting Genitourinary Genitourinary: Denies hematuria and Denies dysuria Musculoskeletal Musculoskeletal: Denies back pain and Denies numbness Integumentary/Breasts Skin/Breast: Denies lesions and Denies rash Neurologic Neurologic: Denies dizziness, Denies localized weakness and Denies numbness Allergic/Immunologic Allergic/Immunologic: Denies throat swelling PFSH <Aubree Nunez DO - Last Filed: 04/21/20 20:17> Medical History (Updated 04/21/20 @ 21:24 by Erlin Luna MD) Adynamic ileus (Resolved) Benign paroxysmal vertigo Benign paroxysmal vertigo, unspecified ear (Resolved) Cataract (Resolved) O.U 02/24/14; Dr. Martin left extraction 03/10/14; Dr. 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 L hip-mild acetabular spurring 2015 - severe arthritis at facet joints Lumbago Nausea and vomiting (Inactive) Oral ulcer (Resolved) 12/07/16 Peripheral edema (Chronic 07/31/16) Peripheral venous insufficiency (Chronic 12/03/08) edema Pneumonia of right lower lobe due to infectious organism (Resolved) Polyp of colon (Resolved) colonoscopy of 01/09/11-multiple polyps at multiple locations. 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 Very hard to regulate and cannot afford alternatives. Understands the risks. Repeat again - PE. back on anticoagualtion Seizure (Resolved) ? 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 NEG ECHO 2000 Urinary incontinence (Chronic 11/10/14) Vaginal lesion (Resolved) 03/22/16 Venous insufficiency Visual disturbance (Resolved) etiology unclear per -exam of 03/14/11 Vitamin D deficiency Vitamin D deficiency (Chronic 03/11/09) Vulvovaginitis (Resolved) Surgical History Extraction of cataract 02/24/14; LEFT EYE 03/10/14; RIGHT EYE History of bilateral tubal ligation (Resolved) Ligation of fallopian tube Social History Smoking/Tobacco Use Status: Former Tobacco Use Quit Date: 06/05/01 Second Hand Exposure: Yes Alcohol Intake: former Drug use: Never Substance use type: does not use Caregiver/Support person: No Household members: none Housing: house Do you need help understanding health information?: Rarely Pets and animals: No Sexually active: No Current gender identity: female What is your relationship status?: How often do you talk on the phone with friends or family?: decline to answer How often do you get together with friends or relatives?: once per week How often do you attend yazdanism or roman catholic services?: decline to answer Do you belong to any clubs or organized social groups?: no Panel score (0-1 are the most socially isolated patients): 0 What type of physical activity do you participate in: decline to answer Duration: decline to answer Frequency: decline to answer Bethany/Roman Catholic: Orthodoxy Special bethany needs: No Seatbelt use: always Helmet use: No Drive intox or ride w/intox bung driver: No Do you feel safe at home: Yes Do you feel safe in your relationship?: Yes Exam <Aubree Nunez DO - Last Filed: 04/21/20 20:17> Const General: cooperative, healthy appearing and no acute distress HENMT Head: normal to inspection Face and sinus: normal facial exam Eyes General: appearance normal, both eyes and all related structures Pupils: PERRL EOM: EOM intact bilaterally Neck Neck: normal visual inspection and No submandibular swelling Lymphatic: no lymphadenopathy noted Chest Chest: normal inspection of the chest and no tenderness Resp Effort & Inspection: normal respiratory effort and able to speak in complete sentences Auscultation: clear to auscultation bilaterally Cardio Rate: regular rate Rhythm: regular rhythm GI Inspection: normal to inspection and other (G-tube LUQ, soft without erythema, induration, fluctuance or induration) Palpation: soft, not firm, not rigid and tender in the LLQ and suprapubicly Auscultation: hypoactive bowel sounds Back/Spine/Pelvis Sacrum: erythema midline and other (No ulcers noted) Skin General skin exam: no rashes or lesions noted Neuro General: patient alert, patient awake and patient oriented x3 Cognition: normal cognition Speech: speech normal Motor: muscle tone normal throughout Sensory Exam: no sensory deficits noted Extrem General: normal to inspection, full ROM, capillary refill normal, no calf tenderness bilaterally and no edema Psych Appearance: grossly normal Mental Status: mental status grossly normal Speech and Movement: speech and movement normal Affect: normal affect Course <Aubree Nunez DO - Last Filed: 04/21/20 20:17> Vital Signs Vital signs: Vital Signs Temperature 98.6 F 04/21/20 17:52 Pulse 82 04/21/20 17:52 Respiratory Rate 32 H 04/21/20 17:52 Blood Pressure 129/53 L 04/21/20 17:52 Pulse Oximetry 96 04/21/20 17:52 Temperature 98.6 F 04/21/20 17:52 Temperature Source Skin 04/21/20 17:52 Pulse 82 04/21/20 17:52 Respiratory Rate 32 H 04/21/20 17:52 Respiratory Effort Non-Labored 04/21/20 17:52 Blood Pressure 129/53 L 04/21/20 17:52 Blood Pressure Position Supine 04/21/20 17:52 Pulse Oximetry 96 04/21/20 17:52 Oxygen Delivery Method Room Air 04/21/20 17:52 Oxygen Flow Rate 0 04/21/20 17:52 Pain Level 0 04/21/20 17:52 Sign Out <Aubree Nunez DO - Last Filed: 04/21/20 20:17> Sign Out Data: Sign Out Comment: Follow-up on urinalysis and CT imaging results and final disposition. Last updated by Aubree Nunez DO at 04/21/20 20:06
[2020-04-21 19:14] LABS: Abs Immature Grans 0.02 k/cumm (0.0-0.09); Absolute Basophil Count 0.02 k/cumm (0.0-0.2); Absolute Eosinophil Count 0.03 k/cumm (0.0-0.7); Absolute Lymphocyte Count 2.53 k/cumm (1.2-3.4); Absolute Monocyte Count 0.88 k/cumm (0.11-0.7); Absolute Neutrophil Count 7.08 k/cumm (1.2-6.7); Basophils % 0.2; Eosinophils % 0.3; HGB 9.6 g/dL (12.0-15.5); Immature Grans % 0.2 %; Mean Corpuscular Hemoglobin 29.4 pg (27.0-33.0); Mean Platelet Volume 9.4 fL (8.0-11.0); Monocytes % 8.3; Platelet Count 327 x1000/uL (130-400); RBC 3.26 m/cumm (4.00-5.20); RBC Distribution Width 16.4 % (11.7-14.6); White Blood Cell Count 10.56 k/cumm (4.4-10.8)
[2020-04-21 19:27] LABS: INR 1.1 (0.9-1.1); PTT Activated 23.8 sec (21.0-31.4); Prothrombin Time 10.9 sec (9.3-11.0)
[2020-04-21] MEDS: ACETAMINOPHEN 1,000 MG/100 ML BTL 400 MG IVPB (19:27)
[2020-04-21 19:28] LABS: ALT 22 U/L (14-59); AST 23 U/L (15-37); Albumin 2.7 g/dL (3.4-5.0); Alkaline Phosphatase 91 U/L (46-116); Anion Gap 8.3 mmol/L (3-11); BUN 18 mg/dL (7-18); Bilirubin, Total 0.4 mg/dL (0.2-1.0); CO2 28.7 mmol/L (21.0-32.0); CREATININE 1.06 mg/dL (0.55-1.02); Calcium 8.6 mg/dL (8.5-10.1); Chloride 101 mmol/L (98-107); Estimated GFR 49.63 (mL/min/1.73m2); Glucose 108 mg/dL (74-106); Lipase 76 U/L (73-393); Potassium 3.1 mmol/L (3.5-5.1); Sodium 138 mmol/L (136-145)
[2020-04-21] MEDS: Normal Saline 500 ML IV (19:28)
--- NOTE | 2020-04-21 19:55 | DI.CT_ITS ---
EXAM: CT ABDOMEN PELVIS W CLINICAL HISTORY: LLQ/suprapubic abd pain/G tube. TECHNIQUE: Imaging Protocol: Axial computed tomography images with coronal and sagittal reformatted images were created and reviewed CONTRAST MATERIAL: Intravenous: Omnipaque 350 Contrast volume:100cc Oral: no COMPARISON: CT CT CHEST PE CTA from 11/30/2019 FINDINGS: Exam is limited by patient motion. ABDOMEN: Lung Bases: Normal where visualized. Dependent changes. Dilated left atrium and left ventricle. Cor onary artery calcifications. Liver: Normal density. No measurable mass. Gallbladder and biliary tract: Small calcified stones. No biliary dilation. Pancreas: Normal density, no abnormal calcifications or inflammatory process. Spleen: Normal. Kidneys: Normal size, contour and axis. No radiodense stones or obstructive uropathy. No masses seen. Adrenal glands: No masses seen. Abdominal Aorta: Abdominal portion non-dilated. The aorta iliac arteries are heavily calcified. PELVIS: Bladder: Symmetric distention, no gross wall thickening. Bowel: Lykens gastrostomy tube is seen. There is no abnormal surrounding collection or air. No obst ruction or bowel wall thickening. Normal appendix. Moderate quantity of stool. Peritoneal cavity: No ascites, collection or mesenteric inflammatory response. Bones: Severe degenerative changes and scoliosis are noted in the spine. Reproductive organs: Within normal limits. Lymph nodes: Unremarkable. Impression: The exam is limited by patient motion. Appropriate position of gastrostomy tube. No acute abnormali ty is seen. RADIATION DOSE DELIVERED: 1,235.87mGy.cm Total DLP DATA REPOSITORY: All CT scans at this facility are submitted to the National Radiology Data Registry (NRDR) Dose Index Registry (DIR) with the [employer] (ACR). RADIATION OPTIMIZATION: All CT scans at this facility use at least one of these dose optimization te chniques: automated exposure control; mA and/or kV adjustment per patient size (includes targeted exa ms where dose is matched to clinical indication); or iterative reconstruction.
[2020-04-21] MEDS: Normal Saline - Diluent 50 ML VIAL IV (19:58)
[2020-04-21] MEDS: Omnipaque 350 MG/ML 100 ML BTL IJ (19:59)
--- NOTE | 2020-04-21 20:07 | DI.VRAD_ITS ---
PROCEDURE INFORMATION: Exam: CT Abdomen And Pelvis With Contrast Exam date and time: 04/21/2020 18:31 Age: 80 years old Clinical indication: Abdominal pain; Patient HX: Llq/suprapubic abd pain/g tube TECHNIQUE: Imaging protocol: Computed tomography of the abdomen and pelvis with intravenous contrast. Radiation optimization: All CT scans at this facility use at least one of these dose optimization techniques: automated exposure control; mA and/or kV adjustment per patient size (includes targeted exams where dose is matched to clinical indication); or iterative reconstruction. Contrast material: OMNI 350; Contrast volume: 100 ml; Contrast route: INTRAVENOUS (IV); COMPARISON: CR RF ABDOMEN 03/16/2020 16:16 FINDINGS: Lungs: Motion in the lung bases, probable mild compressive atelectasis dependently. Pleural space: Trace pleural fluid is possible in the lung bases. Heart: Mild cardiomegaly. Liver: No mass. Gallbladder and bile ducts: Cholelithiasis. No pericholecystic edema. Pancreas: No ductal dilation. No masses. Spleen: No splenomegaly or focal lesions. Adrenals: No mass. Kidneys and ureters: No gross renal masses or significant dilation of the collecting system. Stomach and bowel: Percutaneous gastrostomy in the expected position. No specific evidence of gastritis or suspicious collections around the stomach. Slight motion artifact. There is no significant acute pathology in small bowel or colon. No significant enteritis, colitis or obstruction. Appendix: No evidence of appendicitis. Intraperitoneal space: No free air. No significant fluid collection. Vasculature: Moderate aortoiliac atherosclerosis. Lymph nodes: No significantly enlarged lymph nodes. Bladder: The urinary bladder is distended. No significant urinary bladder wall thickening is appreciated for the degree of distension. No significant edema around the urinary bladder. Reproductive: Unremarkable as visualized. Bones/joints: The bones are demineralized. Lumbar dextroscoliosis. Degenerative changes in the hips and spine. Multilevel disc disease in the lumbar spine. Soft tissues: No suspicious lesions. Other findings: Mild generalized motion artifact. IMPRESSION: 1. No acute findings. 2. Percutaneous gastrostomy in the expected position. 3. Additional findings as described. Dictated and Authenticated by: Viridiana Currie MD. Ordering:RICARDO Mak MD
[2020-04-21 21:05] LABS: Bilirubin Negative (Negative); Blood Negative (Negative); Clarity Clear (Clear); Glucose Negative (Negative); Ketones Negative (Negative); Leukocyte Esterase Small (Negative); Nitrite Positive (Negative); Specific Gravity 1.015 (1.005-1.025); Urobilinogen 0.2 EU/dL (Up TO 0.2); pH 8.5 (5-8)
[2020-04-21 21:09] LABS: Bacteria Few HPF (Negative); C & S Indicated? Yes; Casts Negative LPF (Negative); Crystals Negative HPF (Negative); Epithelial Cells Few HPF (Negative); Mucus Negative (Negative)
[2020-04-21] MEDS: Potassium Chloride Liquid 20 MEQ PKT 40 MEQ PO (21:10)
[2020-04-21] MEDS: Cephalexin 250 MG/5 ML 100 ML BTL 500 MG PO (21:24)
--- NOTE | 2020-04-22 14:55 | NUR.NOTE ---
Nursing Note: Pilar Rosen called asking about the length of time for the prescription. It is written for 3 days and they stated it is usually 5 to [address] Tsai, I called them back and told them to prescribe it for 5 days. Alanis Urias.
== END 2020-04-21 21:35 | disposition home or self-care (01) ==
PROVIDERS: Physician Assistant; Emergency Provider Emergency Medicine; PCP Family Medicine
DX: N39.0 Urinary tract infection, site not specified (principal); E87.6 Hypokalemia; C32.0 Malignant neoplasm of glottis; Z93.0 Tracheostomy status; Z93.1 Gastrostomy status; I10 Essential (primary) hypertension
CPT/HCPCS: 36415; 51701; 80053; 83690; 87077; 93005; 96361; 96365; 99285; 74177; 81003; 81015; 85025; 85610; 85730; 87086; 87186; 93010; J0131; J3490

== ENCOUNTER 2020-05-06 00:41 | Outpatient (CLI) | payer OTHER, MEDICAID, SELFPAY ==
--- NOTE | 2020-05-06 | DI.CT_ITS ---
EXAM: CT NECK W CLINICAL HISTORY: S/P PHARYNGOLARYNGECTOMY IN SEP 2019, TUMOR PATHOLOGY NOTED. TECHNIQUE: Imaging Protocol: Axial computed tomography images with coronal and sagittal reformatted images were created and reviewed CONTRAST MATERIAL: Intravenous: Omnipaque 350 Contrast volume:structured data in ml Contrast route:I V - Oral: yes / no COMPARISON: CT CT neck w from 06/04/2019 FINDINGS: The patient is now status post pharyngolaryngectomy. No residual/recurrent mass is seen in the surgi fatoumata bed. The patient appears to be status post partial right thyroidectomy. There is some soft tiss ue to the right of the tracheostomy tube which may reflect residual right thyroid tissue. The left l obe of the thyroid gland appears stable. No cervical adenopathy is present. No fluid collection is seen in the neck to suggest abscess. The parotid and submandibular glands are unremarkable. The isabella al passageway appears grossly unremarkable. The carotid arteries appear grossly unremarkable. No barajas spicious soft tissue mass is appreciated. Moderately severe centrilobular changes are seen in the dillon ng apices. Mild degenerative changes are seen throughout the cervical spine. The visualized paranas al sinuses are clear. The mastoid air cells are well pneumatized. IMPRESSION: 1. S/p pharyngo laryngectomy. No evidence of a residual or recurrent mass. 2. Possible status post right partial thyroidectomy. Stable appearance of the left thyroid gland. 3. No evidence of cervical adenopathy. RADIATION DOSE DELIVERED: Total DLP DATA REPOSITORY: All CT scans at this facility are submitted to the National Radiology Data Registry (NRDR) Dose Index Registry (DIR) with the [employer] (ACR). RADIATION OPTIMIZATION: All CT scans at this facility use at least one of these dose optimization te chniques: automated exposure control; mA and/or kV adjustment per patient size (includes targeted exa ms where dose is matched to clinical indication); or iterative reconstruction.
[2020-05-06 09:18] LABS: CREATININE 1.27 mg/dL (0.55-1.02); Estimated GFR 40.29 (mL/min/1.73m2)
[2020-05-06 09:27] LABS: INR 1.1 (0.9-1.1); Prothrombin Time 11.4 sec (9.3-11.0)
[2020-05-06] MEDS: Omnipaque 350 MG/ML 100 ML BTL IV (10:02)
== END 2020-05-06 01:01 ==
PROVIDERS: PCP Family Medicine; Visit Provider Otolaryngology Otolaryngology/Facial Plastic Surgery
DX: I26.99 Other pulmonary embolism without acute cor pulmonale (principal); Z79.01 Long term (current) use of anticoagulants; C13.9 Malignant neoplasm of hypopharynx, unspecified; Z93.0 Tracheostomy status
CPT/HCPCS: 70491; 82565; 85610; J3490

== ENCOUNTER 2020-05-12 18:40 | Outpatient (REF) | payer OTHER, MEDICAID, SELFPAY ==
[2020-05-12 19:15] LABS: Bilirubin Negative (Negative); Blood Negative (Negative); Clarity Sl Cloudy (Clear); Glucose Negative (Negative); Ketones Negative (Negative); Leukocyte Esterase Small (Negative); Nitrite Negative (Negative); Urobilinogen 0.2 EU/dL (Up TO 0.2)
[2020-05-12 19:30] LABS: Bacteria Moderate HPF (Negative); RBC 0-2 HPF (0-2)
[2020-05-12 19:31] LABS: C & S Indicated? No/Sq. Contamination; Epithelial Cells Many HPF (Negative)
== END 2020-05-12 19:00 ==
LOC: LBN 18:40
PROVIDERS: PCP Family Medicine; Visit Provider Family Medicine
DX: R53.83 Other fatigue (principal); R82.998 Other abnormal findings in urine
CPT/HCPCS: 81003; 81015

== ENCOUNTER 2020-05-13 05:13 | Emergency (ER) | payer OTHER, MEDICAID, SELFPAY ==
[2020-05-13 05:13] VITALS: BP 147/60; PULSE 86; RESP 20; TEMP 36.7; O2SAT 91
--- NOTE | 2020-05-13 05:31 | ED.GENADUL_ITS ---
Discharge Plan Disposition Patient Disposition: HOME Condition: Stable Discharge Details Chief Complaint: Abd Prob Clinical Impression: Abdominal pain Primary Care Provider: Caridad Sánchez ED Provider: Sb Paul Home Meds and New Rx's Prescriptions: New potassium chloride 40 mEq/15 mL liquid 40 meq PO DAILY Qty: 473 RF: 0 Continued metoclopramide HCl [Reglan] 5 mg tablet 5 mg PO BID Qty: 180 RF: 4 ipratropium-albuterol 0.5 mg-3 mg(2.5 mg base)/3 mL solution for nebulization 3 ml IH QID PRN (Reason: wheezing. J44.9) Qty: 180 RF: 8 guaifenesin [Tussin Mucus-Chest Congestion] 100 mg/5 mL liquid 400 mg PO BID Qty: 1000 RF: 0 metoprolol succinate 25 mg tablet extended release 24 hr 12.5 mg PO BID Qty: 90 RF: 4 Eliquis 5 mg tablet 5 mg PO BID Qty: 180 RF: 12 furosemide 40 mg tablet 40 mg PO DAILY RF: 0 Discharge Instructions Instructions: Hypokalemia (ED), Abdominal Pain (ED) Additional Instructions: your cat scan did not show any concerning findings. 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 Denies any pain like this in the past, though when asked if it feels like it did when she was here 2-3 weeks ago she states yes and at that time was dx'd with uti. She denies fevers,chills, vomit, chest pain. Localizes the pain to the lower abdomen and on examhas tenderness without guarding on exam. Will obtain labs to eval for pancreatitis, ua, and ct to eval for obstruction, pain not out of proportion to exam so doubt mesenteric ischemia spoke with pt's son Abdulaziz who states her pain and mucous in her stool has been present for a month and not a day. Suspect this could be related to her diet as she only eats pureed foods. labs show K of 2.9, awaiting ct ct shos no acute findings, awaiting UA, remains stable with mild tenderness in lower abdomen. Likely will d/c and have her f/u with pcp even if UA shows uti. Differential Diagnosis Differential Diagnosis: uti, ileus, pancreatitis, diverticulitis Imaging Data Radiologic Study: Imaging: CT Scan Radiologist's impression: IMPRESSION: 1. Study limited by patient motion. 2. No acute abnormal finding. 3. Well-positioned gastrostomy. 4. Cholelithiasis. Lab Data Lab results reviewed: Yes I reviewed the patient's lab results. HPI General Mode of arrival: EMS . Date/Time Provider Initiated Documentation: 05/13/20 05:25 . Limitations to Documentation: no limitations . Information obtained by: patient . History of Present Illness 80 year old F presents to the emergency department with the chief complaint of abdominal pain, described as moderate, and it has been constant. No relieving factors improve symptom(s), No exacerbating factors reported . Patient did receive the following treatments prior to arrival, none Related Data Home Medications Medication Instructions Recorded Confirmed ipratropium 0.5 mg-albuterol 3 mg 3 ml IH QID PRN #180 ml 11/28/19 05/13/20 (2.5 mg base)/3 mL nebulization soln guaifenesin 100 mg/5 mL oral liquid 400 mg PO BID #1000 ml 11/29/19 05/13/20 metoprolol succinate 25 mg 12.5 mg PO BID #90 tab 12/17/19 05/13/20 tablet,extended release 24 hr apixaban 5 mg tablet 5 mg PO BID #180 tab 12/24/19 05/13/20 metoclopramide HCl 5 mg tablet 5 mg PO BID #180 tab 02/19/20 05/13/20 furosemide 40 mg PO DAILY 05/13/20 05/13/20 potassium chloride 40 meq PO DAILY #473 ml 05/13/20 Previous Rx's Medication Instructions Recorded ipratropium 0.5 mg-albuterol 3 mg 3 ml IH QID PRN #180 ml 11/28/19 (2.5 mg base)/3 mL nebulization soln guaifenesin 100 mg/5 mL oral liquid 400 mg PO BID #1000 ml 11/29/19 metoprolol succinate 25 mg 12.5 mg PO BID #90 tab 12/17/19 tablet,extended release 24 hr apixaban 5 mg tablet 5 mg PO BID #180 tab 12/24/19 metoclopramide HCl 5 mg tablet 5 mg PO BID #180 tab 02/19/20 potassium chloride 40 meq PO DAILY #473 ml 05/13/20 Allergies Allergy/AdvReac Type Severity Reaction Status Date / Time atorvastatin AdvReac Intermediate pt does Unverified 04/26/20 11:43 not think she has an allergy to this med General Stated Complaint: Abd Prob SUHA: 3 Review of Systems All systems reviewed & are unremarkable except as noted in HPI and below Constitutional Constitutional: Denies chills, Denies fever(s) and Denies weakness Cardiovascular Cardiovascular: Denies chest pain and Denies dyspnea Respiratory Respiratory: Denies cough and Denies dyspnea Gastrointestinal Gastrointestinal: Denies nausea and Denies vomiting Musculoskeletal Musculoskeletal: Denies joint swelling Neurologic Neurologic: Denies weakness Psychiatric Psychiatric: Denies depression [facility] Medical History (Updated 05/13/20 @ 07:00 by Sb Paul MD) Adynamic ileus (Resolved) Benign paroxysmal vertigo Benign paroxysmal vertigo, unspecified ear (Resolved) Cataract (Resolved) O.U 02/24/14; Dr. Martin left extraction 03/10/14; Dr. 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 L hip-mild acetabular spurring 2014 - severe arthritis at facet joints Lumbago Nausea and vomiting (Inactive) Oral ulcer (Resolved) 12/07/16 Peripheral edema (Chronic 07/31/16) Peripheral venous insufficiency (Chronic 12/03/08) edema Pneumonia of right lower lobe due to infectious organism (Resolved) Polyp of colon (Resolved) colonoscopy of 01/09/11-multiple polyps at multiple locations. 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 Very hard to regulate and cannot afford alternatives. Understands the risks. Repeat again - PE. back on anticoagualtion Seizure (Resolved) ? 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 NEG ECHO 2000 Urinary incontinence (Chronic 11/10/14) Vaginal lesion (Resolved) 03/22/16 Venous insufficiency Visual disturbance (Resolved) etiology unclear per -exam of 03/14/11 Vitamin D deficiency Vitamin D deficiency (Chronic 03/11/09) Vulvovaginitis (Resolved) Surgical History Extraction of cataract 02/24/14; LEFT EYE 03/10/14; RIGHT EYE History of bilateral tubal ligation (Resolved) Ligation of fallopian tube Social History Smoking/Tobacco Use Status: Former Tobacco Use Quit Date: 06/05/01 Second Hand Exposure: Yes Alcohol Intake: former Drug use: Never Substance use type: does not use Caregiver/Support person: No Household members: none Housing: house Do you need help understanding health information?: Rarely Pets and animals: No Sexually active: No Current gender identity: female What is your relationship status?: How often do you talk on the phone with friends or family?: decline to answer How often do you get together with friends or relatives?: once per week How often do you attend gnosticism or cheondoism services?: decline to answer Do you belong to any clubs or organized social groups?: no Panel score (0-1 are the most socially isolated patients): 0 What type of physical activity do you participate in: decline to answer Duration: decline to answer Frequency: decline to answer Bethany/Scientologist: Mandaeism Special bethany needs: No Seatbelt use: always Helmet use: No Drive intox or ride w/intox marine engine driver: No Do you feel safe at home: Yes Do you feel safe in your relationship?: Yes Exam Const General: no acute distress Orientation: alert HENMT Head: normal to inspection Ears: external ears normal General nose exam: external nose normal Mouth: moist mucous membranes Eyes General: appearance normal, both eyes and all related structures Neck Neck: normal visual inspection Resp Effort & Inspection: normal respiratory effort Cardio Rate: regular rate GI Palpation: tender Skin General skin exam: no rashes or lesions noted Neuro General: patient alert Extrem General: normal to inspection Psych Mental Status: mental status grossly normal Course Vital Signs Vital signs: Vital Signs Temperature 36.7 C 05/13/20 05:13 Pulse 86 05/13/20 05:13 Respiratory Rate 05/13/20 05:13 Blood Pressure 147/60 H 05/13/20 05:13 Pulse Oximetry 91 L 05/13/20 05:13 Temperature 36.7 C 05/13/20 05:13 Temperature Source Skin 05/13/20 05:13 Pulse 86 05/13/20 05:13 Respiratory Rate 05/13/20 05:13 Blood Pressure 147/60 H 05/13/20 05:13 Pulse Oximetry 91 L 05/13/20 05:13 Oxygen Delivery Method Trach Collar 05/13/20 05:13 Oxygen Flow Rate 0 05/13/20 05:13 Pain Level 8 05/13/20 05:13
[2020-05-13 05:40] LABS: Abs Immature Grans 0.03 k/cumm (0.0-0.09); Absolute Basophil Count 0.01 k/cumm (0.0-0.2); Absolute Eosinophil Count 0.05 k/cumm (0.0-0.7); Absolute Lymphocyte Count 1.59 k/cumm (1.2-3.4); Absolute Monocyte Count 0.92 k/cumm (0.11-0.7); Absolute Neutrophil Count 8.85 k/cumm (1.2-6.7); Basophils % 0.1; Eosinophils % 0.4; HCT 32.2 % (36.0-46.0); HGB 10.2 g/dL (12.0-15.5); Immature Grans % 0.3 %; Lymphocytes % 13.9; Mean Corp. HGB Concentration 31.7 g/dL (32.0-36.0); Mean Corpuscular Hemoglobin 29.7 pg (27.0-33.0); Mean Corpuscular Volume 93.6 fL (80-95); Mean Platelet Volume 9.2 fL (8.0-11.0); Neutrophils % 77.3; Platelet Count 336 x1000/uL (130-400); RBC 3.44 m/cumm (4.00-5.20); RBC Distribution Width 15.5 % (11.7-14.6); White Blood Cell Count 11.45 k/cumm (4.4-10.8)
--- NOTE | 2020-05-13 05:51 | NUR.NOTE ---
Jose Cintron waiting in parking lot [phone]
[2020-05-13 05:53] LABS: ALT 17 U/L (14-59); AST 22 U/L (15-37); Albumin 2.6 g/dL (3.4-5.0); Alkaline Phosphatase 90 U/L (46-116); Anion Gap 9.9 mmol/L (3-11); BUN 10 mg/dL (7-18); Bilirubin, Total 0.4 mg/dL (0.2-1.0); CO2 26.1 mmol/L (21.0-32.0); CREATININE 1.05 mg/dL (0.55-1.02); Calcium 8.7 mg/dL (8.5-10.1); Chloride 104 mmol/L (98-107); Estimated GFR 50.18 (mL/min/1.73m2); Glucose 139 mg/dL (74-106); Lipase 76 U/L (73-393); Sodium 140 mmol/L (136-145); Total Protein 7.2 g/dL (6.4-8.2)
[2020-05-13 05:54] LABS: INR 1.1 (0.9-1.1); PTT Activated 26.2 sec (21.0-31.4)
[2020-05-13 06:01] LABS: Potassium 2.9 mmol/L (3.5-5.1)
[2020-05-13] MEDS: Normal Saline 20 ML VIAL IV ×2 (06:12→06:13)
[2020-05-13] MEDS: Normal Saline Flush 10 ML SYR IVP (06:13)
[2020-05-13] MEDS: Omnipaque 350 MG/ML 100 ML BTL IJ (06:13)
--- NOTE | 2020-05-13 06:23 | DI.CT_ITS ---
EXAM: CT ABDOMEN PELVIS W CLINICAL HISTORY: lower abdominal pain. TECHNIQUE: Imaging Protocol: Axial computed tomography images with coronal and sagittal reformatted images were created and reviewed CONTRAST MATERIAL: Intravenous: Omnipaque 350 Contrast volume:100 ml Oral: yes / no COMPARISON: CT CT ABDOMEN PELVIS W from 04/21/2020 FINDINGS: ABDOMEN: The exam is limited by patient motion. lung Bases: Emphysematous changes and dependent changes.. Liver: Normal density. No measurable mass. Gallbladder and biliary tract: Cholelithiasis. No gallbladder wall thickening or biliary dilatation. . Pancreas: Normal density, no abnormal calcifications or inflammatory process. Spleen: Normal. Kidneys: Normal size, contour and axis. No radiodense stones or obstructive uropathy. No masses seen. Adrenal glands: No masses seen. Abdominal Aorta: Abdominal portion non-dilated. Heavily calcified PELVIS: Bladder: Symmetric distention, no gross wall thickening. Bowel: There is mildly dilated small bowel low in the pelvis. The appendix is normal. There is a mo derate quantity of stool. No bowel wall thickening or pneumatosis is seen.. Peritoneal cavity: Small amount fluid in the low pelvis. No abscess collection or mesenteric inflamm atory response. Bones: Degenerative changes and scoliosis. Reproductive organs: Question of thickening of the endometrial stripe.. Lymph nodes: Unremarkable. Impression: Question of a dilated loop of small bowel low in the pelvis which could represent an early partial sm all bowel obstruction. Small amount of pelvic fluid. Question of thickening of the endometrial stripe. An ultrasound could be performed for further evalu ation. RADIATION DOSE DELIVERED: Total DLP DATA REPOSITORY: All CT scans at this facility are submitted to the National Radiology Data Registry (NRDR) Dose Index Registry (DIR) with the [employer] (A[employer]). RADIATION OPTIMIZATION: All CT scans at this facility use at least one of these dose optimization te chniques: automated exposure control; mA and/or kV adjustment per patient size (includes targeted exa ms where dose is matched to clinical indication); or iterative reconstruction.
[2020-05-13] MEDS: Potassium Chloride Liquid 20 MEQ PKT 40 MEQ PO (06:26)
--- NOTE | 2020-05-13 06:45 | DI.VRAD_ITS ---
PROCEDURE INFORMATION: Exam: CT Abdomen And Pelvis With Contrast Exam date and time: 05/13/2020 5:31 AM Age: 80 years old Clinical indication: Abdominal pain; Localized; Lower; Prior surgery; Surgery date: 6+ months; Surgery type: Trach TECHNIQUE: Imaging protocol: Computed tomography of the abdomen and pelvis with intravenous contrast. Radiation optimization: All CT scans at this facility use at least one of these dose optimization techniques: automated exposure control; mA and/or kV adjustment per patient size (includes targeted exams where dose is matched to clinical indication); or iterative reconstruction. Contrast material: [id number]; Contrast volume: 100 ml; Contrast route: INTRAVENOUS (IV); COMPARISON: CT ABDOMEN PELVIS W 04/21/2020 7:49 PM FINDINGS: Limitations: Exam is limited by motion. Tubes, catheters and devices: Gastrostomy tube. Pleural space: There are no pleural effusions present. Heart: The heart is not enlarged. Left atrial enlargement. Small pericardial fluid. Liver: The liver is normal. Gallbladder and bile ducts: Cholelithiasis. Pancreas: Normal. No ductal dilation. Spleen: Normal. No splenomegaly. Adrenals: Normal. No mass. Kidneys and ureters: Normal. No hydronephrosis. Stomach and bowel: Evaluation of bowel limited by motion, but no obvious bowel obstruction or perforation. Appendix: A normal appendix is evident. There is no appendicitis. Intraperitoneal space: Small probably physiologic intrapelvic free fluid. Intrapelvic surgical clips. Vasculature: Coronary artery calcification. Lymph nodes: Unremarkable. No enlarged lymph nodes. Bladder: Urinary bladder partially fluid-filled and unremarkable. Reproductive: Unremarkable as visualized. Bones/joints: Thoracolumbar degenerative scoliosis. Osteopenia. Soft tissues: Unremarkable. Other findings: Tracheostomy. Tracheal calcifications. IMPRESSION: 1. Study limited by patient motion. 2. No acute abnormal finding. 3. Well-positioned gastrostomy. 4. Cholelithiasis. Dictated and Authenticated by: Jose Rutherford MD. Ordering:KATHRYN Basurto MD
[2020-05-13 06:52] VITALS: BP 154/76; PULSE 88; RESP 20; O2SAT 97
[2020-05-13 06:53] LABS: Bilirubin Negative (Negative); Blood Negative (Negative); Clarity Clear (Clear); Glucose Negative (Negative); Ketones Negative (Negative); Leukocyte Esterase Negative (Negative); Nitrite Negative (Negative); Specific Gravity 1.015 (1.005-1.025); Urobilinogen 0.2 EU/dL (Up TO 0.2)
--- NOTE | 2020-05-13 07:12 | NUR.NOTE ---
RA sats to 88% after morphine. Resp called to eval pt, placed on 3L humidified O2, sats to 99% Green mucous to trach cannula.
[2020-05-13 08:26] VITALS: TEMP 37.2
== END 2020-05-13 08:34 | disposition home or self-care (01) ==
PROVIDERS: Emergency Provider Emergency Medicine; PCP Family Medicine
DX: R10.30 Lower abdominal pain, unspecified (principal); Z93.0 Tracheostomy status; Z93.1 Gastrostomy status; I10 Essential (primary) hypertension
CPT/HCPCS: 36415; 80053; 83690; 86850; 86900; 86901; 96374; 99285; 74177; 81003; 85025; 85610; 85730; 99284; J3490

== ENCOUNTER 2020-05-14 15:47 | Inpatient (IN) | payer OTHER, MEDICAID, SELFPAY ==
[2020-05-14] VITALS (7 sets, daily range): BP systolic 134–160; BP diastolic 65–75; PULSE 99–108; RESP 18–31; TEMP 34–37; O2SAT 95–98
--- NOTE | 2020-05-14 16:15 | RT.EKG_ITS ---
APPROVED REPORT Exam: Resting ECG Patient Location: E HR:101 bpm ECG Measurements Heart Rate 101 AXIS MA 176 P 44 QRSd 81 QRS 6 QT 371 T 13 QTc 482 <Conclusion> Sinus tachycardia...rate> 99. No acute ST ischemic findings. I have reviewed and interpreted ECG and agree with software generated interpretation.
--- NOTE | 2020-05-14 16:25 | W.ED.GENAD ---
Discharge Plan Disposition Patient Disposition: [facility] INPATIENT Condition: Stable Discharge Details Chief Complaint: GenMedical Clinical Impression: Partial obstruction of small intestine Admit Date/Time: 05/14/20 17:08 Admit Provider: Haydee Morrow Attending Provider: Haydee Morrow Primary Care Provider: Caridad Sánchez ED Provider: Camryn Serrano Discharge Data Discharge Date/Time-TO BE ENTERED AT DEPARTURE: 05/14/20 18:06 Medical Decision Making 80-year-old female presents the ED with chief complaint of vomiting and abdominal pain. Patient was seen here yesterday in the ER and was noted to have hypokalemia with a K of 2.9. Had a CT abdomen pelvis yesterday, which on review, showed a possible early small bowel obstruction, and some dilated loops of small bowel, patient does have a history of adynamic ileus, CVA, tracheostomy, PEG, and malignant neoplasm of the larynx. Family reports dark black stools. Upon initial exam patient is having episode of emesis which is moderate amount of bilious green-brownish substance. Per Abdulaziz the son's report patient began vomiting yesterday afternoon around dinnertime and has vomited approximately 4-5 times today. Did have 2 bowel movements over the last 24 hours which is intermittently mixed with mucus per son's report. Patient denies any diarrhea. Patient reports that abdominal pain is relieved after vomiting she does have some left upper and left lower quadrant abdominal pain with palpation. POC Gastroccult is negative for blood at this time. Work-up ordered including CBC, CMP. Did not reorder PT PTT as it was done yesterday. Will consult with surgery before ordering any additional imaging. 1630: EKG was reviewed by Aubree Nunez MD ER attending, shows sinus tachycardia, nonspecific ST abnormality, there is an old EKG available for review which is largely unchanged. 1636: Jose Cintron is at bedside with patient received additional history from patient's son, discussed findings with son and patient who both verbalized understanding. At this time labs are pending. 1642: Gastroccult performed which is negative for hematemesis. Surgery paged to consult for possible SBO. 1649: Spoke with Dr. Morrow who is on-call for general surgery this time she is going to review the patient's CT and give me a call back. 1700: Spoke again with Dr. Morrow who agrees to accept patient for admission for possible partial small bowel obstruction, she recommends low intermittent suction from G-tube at this time. Labs have resulted and show white blood cell count of 24.56, hemoglobin 11.9, hematocrit 36.7, RDW 15.7, platelet count 449, anion gap is 12.5, BUN 19 and creatinine 1.57. Disposition at this time is admission for partial small bowel obstruction. Medical Records Medical records reviewed: Yes I reviewed the patient's medical records. Lab Data Lab results reviewed: Yes I reviewed the patient's lab results. HPI General Mode of arrival: EMS. Date/Time Provider Initiated Documentation: 05/14/20 15:56. Limitations to Documentation: language barrier (Due to tracheostomy). Information obtained by: family, EMS and old records reviewed. HPI Narrative: 80-year-old female presents the ED with chief complaint of vomiting and abdominal pain. Patient was seen here yesterday in the ER and was noted to have hypokalemia with a K of 2.9. Had a CT abdomen pelvis which on review showed a possible early small bowel obstruction, patient does have a history of adynamic ileus, CVA, tracheostomy, PEG, and malignant neoplasm of the larynx. Family reports dark black stools. Upon initial exam patient is having episode of emesis which is moderate amount of bilious green-brownish substance. Per Abdulaziz the son's report patient began vomiting yesterday afternoon around dinnertime and has vomited approximately 4-5 times today. Did have 2 bowel movements over the last 24 hours which is intermittently mixed with mucus per son's report. Patient denies any diarrhea. Patient reports that abdominal pain is relieved after vomiting she does have some left upper and left lower quadrant abdominal pain with palpation. POC Gastroccult is negative for blood at this time. Related Data Home Medications Medication Instructions Recorded Confirmed ipratropium 0.5 mg-albuterol 3 mg 3 ml IH QID PRN #180 ml 11/28/19 05/14/20 (2.5 mg base)/3 mL nebulization soln guaifenesin 100 mg/5 mL oral liquid 400 mg PO BID #1000 ml 11/29/19 05/14/20 metoprolol succinate 25 mg 12.5 mg PO BID #90 tab 12/17/19 05/14/20 tablet,extended release 24 hr apixaban 5 mg tablet 5 mg PO BID #180 tab 12/24/19 05/14/20 metoclopramide HCl 5 mg tablet 5 mg PO BID #180 tab 02/19/20 05/14/20 furosemide 40 mg PO DAILY 05/13/20 05/14/20 potassium chloride 40 meq PO DAILY #473 ml 05/13/20 05/14/20 Previous Rx's Medication Instructions Recorded ipratropium 0.5 mg-albuterol 3 mg 3 ml IH QID PRN #180 ml 11/28/19 (2.5 mg base)/3 mL nebulization soln guaifenesin 100 mg/5 mL oral liquid 400 mg PO BID #1000 ml 11/29/19 metoprolol succinate 25 mg 12.5 mg PO BID #90 tab 12/17/19 tablet,extended release 24 hr apixaban 5 mg tablet 5 mg PO BID #180 tab 12/24/19 metoclopramide HCl 5 mg tablet 5 mg PO BID #180 tab 02/19/20 potassium chloride 40 meq PO DAILY #473 ml 05/13/20 Allergies Allergy/AdvReac Type Severity Reaction Status Date / Time atorvastatin AdvReac Intermediate pt does Unverified 05/14/20 16:32 not think she has an allergy to this med General Stated Complaint: GenMedical SUHA: 3 Review of Systems Narrative: Constitutional: Negative for weight loss, alert and oriented, well groomed, normal body habitus, appears uncomfortable is actively vomiting at this time. Nonverbal at this time due to tracheostomy, does write to communicate and mouths words. HEENT: Denies trauma, headaches, blurry vision, nasal discharge, sore throat, trouble swallowing. Chest: Denies chest pain, palpitations, irregular rhythm, hypertension. Respiratory: Denies Shortness of breath, cough, hemoptysis. GI: Denies constipation. Positive nausea vomiting, abdominal pain and questionable hematemesis. Reports solid bowel movements with intermittent yellow mucousy type substance. : Denies dysuria, hematuria, flank pain, Neuro: Denies dizziness, blurry vision, syncope, headache or facial numbness. Hematologic: Patient is on blood thinner apixaban, intolerance to heat or cold, hair loss. Unobtainable due to (Limited by physical) [facility] Medical History Adynamic ileus (Resolved) Benign paroxysmal vertigo Benign paroxysmal vertigo, unspecified ear (Resolved) Cataract (Resolved) O.U 02/24/14; Dr. Martin left extraction 03/10/14; Dr. Matrin right extraction Cellulitis (Resolved) 07/31/16 both lower extremity Cerebral arteriovenous malformation (Chronic) Cerebral vascular malformation Cerebrovascular accident (CVA) (Chronic 01/20/16) seen on previous CT Scans 2016 Decreased muscle tone (Chronic) ANAL SPINCTER Deficient knowledge of tracheostomy home care (Inactive) Depression Depressive disorder (Chronic) DVT prophylaxis (Inactive) Dysphagia (Inactive 01/01/18) Essential hypertension (Chronic 10/31/13) Hip pain (Chronic) bilateral 2014 - mild arthritis right History of tobacco use (Resolved) 2 ppd; quit in 2000 Hyperlipidemia Hyperlipidemia (Chronic 04/15/13) Hypertension Leukocytosis (Inactive) Low back pain (Chronic 03/04/06) L 2-3 disc narrowing. L hip-mild acetabular spurring 2014 - severe arthritis at facet joints Lumbago Nausea and vomiting (Inactive) Oral ulcer (Resolved) 12/07/16 Peripheral edema (Chronic 07/31/16) Peripheral venous insufficiency (Chronic 12/03/08) edema Pneumonia of right lower lobe due to infectious organism (Resolved) Polyp of colon (Resolved) colonoscopy of 01/09/11-multiple polyps at multiple locations. 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 Very hard to regulate and cannot afford alternatives. Understands the risks. Repeat again - PE. back on anticoagualtion Seizure (Resolved) ? 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 NEG ECHO 2000 Urinary incontinence (Chronic 11/10/14) Vaginal lesion (Resolved) 03/22/16 Venous insufficiency Visual disturbance (Resolved) etiology unclear per -exam of 03/14/11 Vitamin D deficiency Vitamin D deficiency (Chronic 03/11/09) Vulvovaginitis (Resolved) Surgical History Extraction of cataract 02/24/14; LEFT EYE 03/10/14; RIGHT EYE History of bilateral tubal ligation (Resolved) Ligation of fallopian tube Family History Mother , 85 Vaginal cancer Father , 74 Heart disease COPD (chronic obstructive pulmonary disease) Sister , 63 Heart disease ASHD/CHF Lung cancer Maternal Grandmother Heart disease Paternal Grandmother Diabetes Son , 40 Substance abuse Heart disease Sister No problems noted. Sister No problems noted. Son RA (rheumatoid arthritis) Daughter No problems noted. Daughter No problems noted. Paternal Grandfather , 80 No problems noted. Social History Smoking/Tobacco Use Status: Former Tobacco Use Quit Date: 06/05/01 Second Hand Exposure: Yes Alcohol Intake: former Drug use: Never Substance use type: does not use Caregiver/Support person: No Household members: none Housing: house Do you need help understanding health information?: Rarely Pets and animals: No Sexually active: No Current gender identity: female What is your relationship status?: How often do you talk on the phone with friends or family?: decline to answer How often do you get together with friends or relatives?: once per week How often do you attend protestant or latter day services?: decline to answer Do you belong to any clubs or organized social groups?: no Panel score (0-1 are the most socially isolated patients): 0 What type of physical activity do you participate in: decline to answer Duration: decline to answer Frequency: decline to answer Bethany/Oriental Orthodox: Presybeterian Special bethany needs: No Seatbelt use: always Helmet use: No 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 Appears stated age. Normal body habitus. Appears uncomfortable is actively vomiting at this time. Head: Normocephalic, no trauma. Eyes: Pupils PERRLA, Red reflex noted, EOM's intact. Eyelids symmetrical without lesions, discharge, or swelling. ENT: Bilateral TM's WNL, External ear normal to inspection, no mastoid TTP, swelling, or erythema, Nasal turbinates WNL, no nasal discharge. Normal dentition, Posterior pharynx WNL, no exudate. Chest: Mildly tachycardic rate of 100, is hypertensive upon arrival at 160/75 RRR, Normal S1, S2, distal pulses intact. Resp: Patient has a tracheostomy no surrounding erythema no drainage. Abdomen: Slightly hard to palpation, hypoactive bowel sounds, does have a G-tube noted to the left upper quadrant, left upper quadrant and left lower quadrant tender to palpation. Musculoskeletal: Normal gait, 5/5 strength to all four extremities. Skin: No suspicious rashes or lesions. Capillary refill less than 2 sec. Neurologic: Cranial nerves II-XII intact. Alert and oriented x 3. Hematologic/Lymphatic: No ecchymosis, no lymphadenopathy. Course Vital Signs Vital signs: Vital Signs Temperature 36.6 C 05/14/20 15:49 Pulse 108 H 05/14/20 15:49 Respiratory Rate 31 H 05/14/20 15:49 Blood Pressure 160/75 H 05/14/20 15:49 Pulse Oximetry 95 05/14/20 15:49 Temperature 36.6 C 05/14/20 15:49 Temperature Source Skin 05/14/20 15:49 Pulse 108 H 05/14/20 15:49 Respiratory Rate 31 H 05/14/20 15:49 Blood Pressure 160/75 H 05/14/20 15:49 Blood Pressure Position Sitting 05/14/20 15:49 Pulse Oximetry 95 05/14/20 15:49 Oxygen Delivery Method Room Air 05/14/20 15:49 Oxygen Flow Rate 0 05/14/20 15:49 Pain Level 5 05/14/20 15:49
[2020-05-14] MEDS: Ondansetron 4 MG/2 ML VIAL (16:30)
[2020-05-14] MEDS: Normal Saline 1,000 ML 1000 ML IV (16:31)
[2020-05-14 16:40] LABS: Abs Immature Grans 0.08 k/cumm (0.0-0.09); Absolute Monocyte Count 1.11 k/cumm (0.11-0.7); HCT 36.7 % (36.0-46.0); HGB 11.9 g/dL (12.0-15.5); Immature Grans % 0.3 %; Lymphocytes % 3.8; Mean Corp. HGB Concentration 32.4 g/dL (32.0-36.0); Mean Corpuscular Hemoglobin 29.7 pg (27.0-33.0); Mean Corpuscular Volume 91.5 fL (80-95); Mean Platelet Volume 9.7 fL (8.0-11.0); Monocytes % 4.5; Neutrophils % 91.4; Platelet Count 449 x1000/uL (130-400); RBC 4.01 m/cumm (4.00-5.20); RBC Distribution Width 15.7 % (11.7-14.6); White Blood Cell Count 24.56 k/cumm (4.4-10.8)
[2020-05-14 16:52] LABS: ALT 15 U/L (14-59); AST 20 U/L (15-37); Albumin 2.8 g/dL (3.4-5.0); Alkaline Phosphatase 100 U/L (46-116); Anion Gap 12.5 mmol/L (3-11); BUN 19 mg/dL (7-18); Bilirubin, Total 0.5 mg/dL (0.2-1.0); CO2 25.5 mmol/L (21.0-32.0); CREATININE 1.57 mg/dL (0.55-1.02); Calcium 9.5 mg/dL (8.5-10.1); Chloride 100 mmol/L (98-107); Estimated GFR 31.54 (mL/min/1.73m2); Glucose 183 mg/dL (74-106); Potassium 3.8 mmol/L (3.5-5.1); Sodium 138 mmol/L (136-145); Total Protein 7.9 g/dL (6.4-8.2)
[2020-05-14 16:53] LABS: Troponin I < 0.05 ng/mL (<0.06)
[2020-05-14 17:02] LABS: Absolute Lymphocyte Count 0.93 k/cumm (1.2-3.4); Absolute Neutrophil Count 22.45 k/cumm (1.2-6.7); Diff Comment Agrees w/ Instrument; RBC Morphology Normal
[2020-05-14 19:35] LABS: Troponin I < 0.05 ng/mL (<0.06)
[2020-05-14] MEDS: Pantoprazole 40 MG VIAL IVP (20:53)
[2020-05-14] MEDS: Metoprolol CR 25 MG TABCR 12.5 MG PO (20:53)
[2020-05-14] MEDS: Apixaban 2.5 MG TAB PO (20:53)
[2020-05-14] MEDS: Normal Saline Flush 10 ML SYR IVP (20:54)
[2020-05-14] MEDS: Lactated Ringers 1,000 ML 150 ML IV (20:55)
[2020-05-14] MEDS: guaiFENesin 200 MG/10 ML CUP 400 MG PO (20:55)
[2020-05-15 02:58] LABS: COVID-19 RT-PCR UVMMC Result Negative (Negative)
[2020-05-15] MEDS: Lactated Ringers 1,000 ML 150 ML IV ×4 (03:47→23:35)
[2020-05-15 07:30] VITALS: BP 123/66; PULSE 98; RESP 16; TEMP 37; O2SAT 90
[2020-05-15 08:00] VITALS: O2SAT 96
[2020-05-15 08:45] LABS: Abs Immature Grans 0.06 k/cumm (0.0-0.09); Absolute Basophil Count 0.02 k/cumm (0.0-0.2); Absolute Eosinophil Count 0.02 k/cumm (0.0-0.7); Absolute Lymphocyte Count 1.15 k/cumm (1.2-3.4); Absolute Monocyte Count 1.49 k/cumm (0.11-0.7); Absolute Neutrophil Count 14.99 k/cumm (1.2-6.7); Basophils % 0.1; Eosinophils % 0.1; HCT 31.7 % (36.0-46.0); Immature Grans % 0.3 %; Lymphocytes % 6.5; Mean Corp. HGB Concentration 31.5 g/dL (32.0-36.0); Mean Corpuscular Hemoglobin 29.7 pg (27.0-33.0); Mean Corpuscular Volume 94.1 fL (80-95); Mean Platelet Volume 9.5 fL (8.0-11.0); Monocytes % 8.4; Neutrophils % 84.6; Platelet Count 331 x1000/uL (130-400); RBC 3.37 m/cumm (4.00-5.20); RBC Distribution Width 15.8 % (11.7-14.6); White Blood Cell Count 17.72 k/cumm (4.4-10.8)
[2020-05-15 08:55] LABS: Anion Gap 6.4 mmol/L (3-11); BUN 20 mg/dL (7-18); CO2 30.6 mmol/L (21.0-32.0); CREATININE 1.26 mg/dL (0.55-1.02); Calcium 8.6 mg/dL (8.5-10.1); Chloride 105 mmol/L (98-107); Estimated GFR 40.66 (mL/min/1.73m2); Glucose 128 mg/dL (74-106); Potassium 3.5 mmol/L (3.5-5.1); Sodium 142 mmol/L (136-145)
[2020-05-15] MEDS: Metoprolol CR 25 MG TABCR 12.5 MG PO ×2 (09:24→19:51)
[2020-05-15] MEDS: Apixaban 2.5 MG TAB PO ×2 (09:24→19:51)
[2020-05-15] MEDS: guaiFENesin 200 MG/10 ML CUP 400 MG PO ×2 (09:24→19:51)
--- NOTE | 2020-05-15 09:50 | HPE_ITS ---
Date of service: 05/15/20 Time of Service: 09:50 Assessment and Plan Assessment and plan (1) Partial obstruction of small intestine: Status: Acute Assessment and plan: She reports decreased pain today. Will continue gastrostomy to wall suction until volume decreases and she has some bowel activity. The drainage was 850cc over the last shift. Her WBC is improving and she is afebrile. There is no clinical evidence of infection, UA a few days ago was normal. Will monitor. The obstruction may need further evaluation. Will re-evaluate and consider a SBFT. If abdominal surgery is necessary she would be willing to have it done. Watch nutritional status and consider PICC/TPN if needed. Will keep on Eliquis Her last colonoscopy was 08/2014 and showed polyps. This may need follow up at some point given her change in bowel habits and blood in stool. Will also need to consider pelvic US - thickened endometrial stripe on CT. History of Present Illness Narrative: This patient presented to the emergency department yesterday with complaints of abdominal pain and vomiting. The pain was located primarily in the left lower quadrant. She had about 4-5 episodes of vomiting which appeared bilious. This did temporarily relieve the pain. She states she has been unable to eat for the past few days. Her history is significant for a pharyngeal laryngectomy for squamous cell cancer. She has a permanent tracheostomy and also has a gastrostomy tube. She normally does take in food orally and will also supplement with tube feeds. She reports difficulty having a bowel movement over the last few months and will only go every 4 to 5 days. She does report there is some blood present. She states her last colonoscopy was about 3 years ago. The patient has been seen on other occasions for abdominal pain over the past few months. In April she had a CT scan of the abdomen pelvis that was unremarkable. She was diagnosed with a Klebsiella UTI at that time. She had a CT on the ninth of this month that showed a dilated loop of small bowel in the pelvis. Patient denies any prior abdominal surgery with exception of a tubal ligation. At this time she reports that her pain is better. She cannot recall when she last passed flatus. Her last bowel movement was about 4 days ago. She currently denies cough or urinary complaints. Review of Systems Constitutional Constitutional: Denies fatigue and Denies headache(s) Eyes Eyes: Denies change in vision ENT Ears, Nose, Mouth, and Throat: Denies headache(s) and Denies neck mass Cardiovascular Cardiovascular: Denies chest pain, Denies edema, Denies palpitations and Denies dyspnea Respiratory Respiratory: Denies cough, Denies dyspnea and Denies wheezing Genitourinary Genitourinary: Denies abnormal vaginal bleeding and Denies dysuria Musculoskeletal Musculoskeletal: Denies joint swelling Integumentary/Breasts Skin/Breast: Denies new lesions and Denies rash Neurologic Neurologic: Denies confusion, Denies headache(s) and Denies localized weakness Psychiatric Psychiatric: Reports system reviewed and no additional complaints, except as documented and Denies confusion Endocrine Endocrine: Denies fatigue and Denies palpitations Hematologic/Lymphatic Hematologic/Lymphatic: Denies easy bleeding and Denies lymphadenopathy Allergic/Immunologic Allergic/Immunologic: Denies wheezing [facility] Medical History Adynamic ileus (Resolved) Benign paroxysmal vertigo Benign paroxysmal vertigo, unspecified ear (Resolved) Cataract (Resolved) O.U 02/24/14; Dr. Martin left extraction 03/10/14; Dr. Martin right extraction Cellulitis (Resolved) 07/31/16 both lower extremity Cerebral arteriovenous malformation (Chronic) Cerebral vascular malformation Cerebrovascular accident (CVA) (Chronic 01/20/16) seen on previous CT Scans 2016 Decreased muscle tone (Chronic) ANAL SPINCTER Deficient knowledge of tracheostomy home care (Inactive) Depression Depressive disorder (Chronic) DVT prophylaxis (Inactive) Dysphagia (Inactive 01/01/18) Essential hypertension (Chronic 10/31/13) Hip pain (Chronic) bilateral 2014 - mild arthritis right History of tobacco use (Resolved) 2 ppd; quit in 2000 Hyperlipidemia Hyperlipidemia (Chronic 04/15/13) Hypertension Leukocytosis (Inactive) Low back pain (Chronic 03/04/06) L 2-3 disc narrowing. L hip-mild acetabular spurring 2014 - severe arthritis at facet joints Lumbago Nausea and vomiting (Inactive) Oral ulcer (Resolved) 12/07/16 Peripheral edema (Chronic 07/31/16) Peripheral venous insufficiency (Chronic 12/03/08) edema Pneumonia of right lower lobe due to infectious organism (Resolved) Polyp of colon (Resolved) colonoscopy of 01/09/11-multiple polyps at multiple locations. 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 Very hard to regulate and cannot afford alternatives. Understands the risks. Repeat again - PE. back on anticoagualtion Seizure (Resolved) ? 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 NEG ECHO 2000 Urinary incontinence (Chronic 11/10/14) Vaginal lesion (Resolved) 03/22/16 Venous insufficiency Visual disturbance (Resolved) etiology unclear per -exam of 03/14/11 Vitamin D deficiency Vitamin D deficiency (Chronic 03/11/09) Vulvovaginitis (Resolved) Surgical History Extraction of cataract 02/24/14; LEFT EYE 03/10/14; RIGHT EYE History of bilateral tubal ligation (Resolved) History of laryngectomy (Acute) Ligation of fallopian tube Status post gastrostomy (Acute) Status post tracheostomy (Acute) Family History Mother , 85 Vaginal cancer Father , 74 Heart disease COPD (chronic obstructive pulmonary disease) Sister , 63 Heart disease ASHD/CHF Lung cancer Maternal Grandmother Heart disease Paternal Grandmother Diabetes Son , 40 Substance abuse Heart disease Sister No problems noted. Sister No problems noted. Son RA (rheumatoid arthritis) Daughter No problems noted. Daughter No problems noted. Paternal Grandfather , 80 No problems noted. Social History Smoking/Tobacco Use Status: Former Tobacco Use Quit Date: 06/05/01 Second Hand Exposure: Yes Alcohol Intake: former Drug use: Never Substance use type: does not use Caregiver/Support person: No Household members: none Housing: house Do you need help understanding health information?: Rarely Pets and animals: No Sexually active: No Current gender identity: female What is your relationship status?: How often do you talk on the phone with friends or family?: decline to answer How often do you get together with friends or relatives?: once per week How often do you attend jewish or gnosticism services?: decline to answer Do you belong to any clubs or organized social groups?: no Panel score (0-1 are the most socially isolated patients): 0 What type of physical activity do you participate in: decline to answer Duration: decline to answer Frequency: decline to answer Bethany/Buddhist: Episcopalian Special bethany needs: No Seatbelt use: always Helmet use: No Drive intox or ride w/intox [employer]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 Do you feel safe at home: Yes Do you feel safe in your relationship?: Yes Meds Home Medications and Allergies Home Medications Medication Instructions Recorded Confirmed Type ipratropium 0.5 mg-albuterol 3 mg 3 ml IH QID PRN #180 ml 11/28/19 05/14/20 Rx (2.5 mg base)/3 mL nebulization soln guaifenesin 100 mg/5 mL oral liquid 400 mg PO BID #1000 ml 11/29/19 05/14/20 Rx metoprolol succinate 25 mg 12.5 mg PO BID #90 tab 12/17/19 05/14/20 Rx tablet,extended release 24 hr apixaban 5 mg tablet 5 mg PO BID #180 tab 12/24/19 05/14/20 Rx metoclopramide HCl 5 mg tablet 5 mg PO BID #180 tab 02/19/20 05/14/20 Rx furosemide 40 mg PO DAILY 05/13/20 05/14/20 History potassium chloride 40 meq PO DAILY #473 ml 05/13/20 05/14/20 Rx Allergies Allergy/AdvReac Type Severity Reaction Status Date / Time atorvastatin AdvReac Intermediate pt does Unverified 05/14/20 16:32 not think she has an allergy to this med Exam Const General: not in acute distress Nutritional Appearance: well nourished Orientation: oriented x3 Eyes Sclera: sclerae normal Pupils: PERRL Neck Neck: no lymphadenopathy Other: Tracheostomy present Resp Effort & Inspection: normal respiratory effort Auscultation: clear to auscultation bilaterally and no wheezes Cardio Rate: regular rate Rhythm: regular rhythm GI Inspection: non-distended Palpation: soft, no hepatosplenomegaly, no hernias and tender (LLQ, suprapubic region) Other: Gastrostomy in good position with bilious output Skin General skin exam: no rashes or lesions noted Neuro General: patient alert Cognition: normal cognition Extrem General: normal to inspection Psych Affect: normal affect Attitude: cooperative Results Labs Result diagrams: 05/15/20 08:21 05/15/20 08:21 Labs: Laboratory Results - last 24 hr 05/14/20 05/14/20 05/14/20 16:11 16:11 17:30 WBC 24.56 H RBC 4.01 Hgb 11.9 L Hct 36.7 MCV 91.5 MCH 29.7 MCHC 32.4 RDW 15.7 H Plt Count 449 H MPV 9.7 Immature Gran % 0.3 Neutrophils % 91.4 Lymphocytes % 3.8 Monocytes % 4.5 Eosinophils % 0.0 Basophils % 0.0 Absolute Neutrophils 22.45 H Absolute Lymphocytes 0.93 L Absolute Monocytes 1.11 H Absolute Eosinophils 0.00 Absolute Basophils 0.00 Differential Comment Agrees w/ instrument RBC Morphology Normal Sodium 138 Potassium 3.8 D Chloride 100 Carbon Dioxide 25.5 Anion Gap 12.5 H BUN 19 H D Creatinine 1.57 H Estimated GFR/1.73 m2 31.54 Glucose 183 H Calcium 9.5 Magnesium 2.0 Total Bilirubin 0.5 AST 20 ALT 15 Alkaline Phosphatase 100 Troponin I < 0.05 Total Protein 7.9 Albumin 2.8 L COVID-19 PCR Negative Nasopharyn COVID-19 PCR Not Applicable Ref Test Perform Site [facility] lab 05/14/20 05/15/20 05/15/20 19:15 08:21 08:21 WBC 17.72 H RBC 3.37 L Hgb 10.0 L Hct 31.7 L MCV 94.1 MCH 29.7 MCHC 31.5 L RDW 15.8 H Plt Count 331 D MPV 9.5 Immature Gran % 0.3 Neutrophils % 84.6 Lymphocytes % 6.5 Monocytes % 8.4 Eosinophils % 0.1 Basophils % 0.1 Absolute Neutrophils 14.99 H Absolute Lymphocytes 1.15 L Absolute Monocytes 1.49 H Absolute Eosinophils 0.02 Absolute Basophils 0.02 Differential Comment RBC Morphology Sodium 142 Potassium 3.5 Chloride 105 Carbon Dioxide 30.6 Anion Gap 6.4 BUN 20 H Creatinine 1.26 H Estimated GFR/1.73 m2 40.66 Glucose 128 H Calcium 8.6 Magnesium Total Bilirubin AST ALT Alkaline Phosphatase Troponin I < 0.05 Total Protein Albumin COVID-19 PCR Nasopharyn COVID-19 PCR Ref Test Perform Site Last Vital Signs Temp 98.6 F 05/15/20 07:30 Pulse 98 H 05/15/20 07:30 Resp 16 05/15/20 07:30 BP 123/66 05/15/20 07:30 Pulse Ox 90 L 05/15/20 07:30 COVID-19 Screening Have you,or household,traveled outside [place] in last 14 days?: No Had IN PERSON contact w/suspected or confirmed C-19 person: No
[2020-05-15] MEDS: Normal Saline Flush 10 ML SYR IVP ×3 (12:38→17:51)
--- NOTE | 2020-05-15 12:58 | PDOC.CMIN ---
- If Service Date Differs Date of service: 05/15/20 Time of Service: 13:06 Care Management Initial Assess REASON FOR HOSPITALIZATION:: SBO PAST MEDICAL HISTORY/PAST SURGICAL HISTORY:: Medical History . Adynamic ileus (Resolved). Benign paroxysmal vertigo. Benign paroxysmal vertigo, unspecified ear (Resolved). Cataract (Resolved). O.U 02/24/14; Dr. Martin left extraction 03/10/14; Dr. Martin right extraction. Cellulitis (Resolved). 07/31/16 both lower extremity. Cerebral arteriovenous malformation (Chronic). Cerebral vascular malformation. Cerebrovascular accident (CVA) (Chronic 01/20/16). seen on previous CT Scans 2016. Decreased muscle tone (Chronic). 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 Deficient knowledge of tracheostomy home care (Inactive). Depression. Depressive disorder (Chronic). DVT prophylaxis (Inactive). Dysphagia (Inactive 01/01/18). Essential hypertension (Chronic 10/31/13). Hip pain (Chronic). bilateral. 2015 - mild arthritis right. History of tobacco use (Resolved). 2 ppd; quit in 2000. Hyperlipidemia. Hyperlipidemia (Chronic 04/15/13). Hypertension. Leukocytosis (Inactive). Low back pain (Chronic 03/04/06). L 2-3 disc narrowing. L hip-mild acetabular spurring. 2015 - severe arthritis at facet joints. Lumbago. Nausea and vomiting (Inactive). Oral ulcer (Resolved). 12/07/16. Peripheral edema (Chronic 07/31/16). Peripheral venous insufficiency (Chronic 12/03/08). edema. Pneumonia of right lower lobe due to infectious organism (Resolved). Polyp of colon (Resolved). colonoscopy of 01/09/11-multiple polyps at multiple locations. mixed adenomatous polyp; colon lipoma. 08/2014-multiple polyps-ascending, sigmoid and rectal polyps; TUBULAR ADENOMAS. Poor balance (Resolved). 05/10/15. 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 Pulmonary embolus (Resolved 05/10/15). pt opted after years of coumadin to stop and go on ASA. Very hard to regulate and cannot afford alternatives. Understands the risks. Repeat again - PE. back on anticoagualtion. Seizure (Resolved). ? of seizures; on medication for time; now off w/no change. Stenosis of carotid artery (Chronic 01/20/16). carotid us 01/18. TMJ (temporomandibular joint disorder) (Resolved). right. Tracheostomy hemorrhage (Resolved). Transient ischemic attack (Resolved 08/04/03). POS MRI R TEMPORAL LOBE. NEG ECHO 2000. Urinary incontinence (Chronic 11/10/14). Vaginal lesion (Resolved). 03/22/16. Venous insufficiency. Visual disturbance (Resolved). etiology unclear per -exam of 03/14/11. Vitamin D deficiency. Vitamin D deficiency (Chronic 03/11/09). Vulvovaginitis (Resolved). Surgical History . Extraction of cataract. 02/24/14; LEFT EYE. 03/10/14; RIGHT EYE. History of bilateral tubal ligation (Resolved). History of laryngectomy (Acute). Ligation of fallopian tube. Status post gastrostomy (Acute). Status post tracheostomy (Acute) PREVIOUS FUNCTIONAL STATUS/SOCIAL/FAMILY SUPPORTS:: Lisa lives in her own home and her family provides supportive care. She has three children Jasmin, Trini and Abdulaziz who all provide support at home. Lisa was recently discharged from [facility] on 11/27/2019 status post trach after surgical removal of her thyroid and Larnx. CURRENT FUNCTIONAL STATUS:: Lisa was sitting up in her chair when CM met with her. Due to her recent trach surgery, she is unable to speak with CM, but she communicates well with nodding, mouthing' words, and writing when needed. She stated that things are overall going well at home. Two of her children, Trini and Abdulaziz are her caregivers. She has appointed Abdulaziz to be her visitor/support person for this admission. She asked if CM would ask Abdulaziz to bring in more cannulas. LILLI spoke to her RN, who stated that Abdulaziz dropped off supplies, and she would have respiratory check to see if the cannulas are in the bag. CM called Abdulaziz and left a voicemail to check in. CM will continue to follow. ADVANCE DIRECTIVES:: Multiple AD's and COLST on her chart. Has patient been provided with info about the portal/API?: Yes Did the patient sign up for the portal?: No CODE STATUS:: DNR/DNI INSURANCE COVERAGE / FINANCIAL ISSUES:: [facility] MCR Replacement/ [facility]EV[facility]/ [facility] CURRENT HOME/COMMUNITY SERVICES/EQUIPMENT:: DME [employer], Oxygen, humidification, suctiion, feeding tube. oncology, supports through [facility] PRIMARY CARE PHYSICIAN:: Dr. Sánchez POTENTIAL DISCHARGE NEEDS:: Evaluations for further needs, continuation of services, follow up appoinments. PATIENT/FAMILY EDUCATION NEEDS:: Review discharge instructions regarding activity levels and medications, discussion of self care needs including ask me three and goals of care. ANTICIPATED BARRIERS TO DISCHARGE:: None identified at this time. TRANSPORTATION:: Via private vehicle by family. PLAN:: Per report, MD is attempting to resolve the SBO with non surgical intervention at this time. If it does not resolve, her condition will be re evaluated. Once resolved, she will likely return home with a resumption of care and community services. CM will continue to follow.
[2020-05-15 13:45] VITALS: TEMP 34
[2020-05-15 15:47] VITALS: BP 119/71; PULSE 92; RESP 15; TEMP 37.2; O2SAT 92
[2020-05-15] MEDS: Pantoprazole 40 MG VIAL IVP (17:34)
[2020-05-15] MEDS: Docusate Sodium 100 MG CAP PO (19:52)
[2020-05-15 21:35] VITALS: BP 103/64; PULSE 85; RESP 16; TEMP 36.5; O2SAT 90
[2020-05-15 23:28] VITALS: TEMP 34
[2020-05-16] VITALS (9 sets, daily range): BP systolic 114–125; BP diastolic 69–75; PULSE 72–89; RESP 1–20; TEMP 34–36.6; O2SAT 97–99
--- NOTE | 2020-05-16 00:38 | NUR.NOTE ---
At evening vitals, found to have O2 in mid/hi 80s, repositioning did not improve. Possible due to morphine administration. O2 bled into [employer] for an FiO2 of 26 . Oxygen maintaining in mid 90s...Nursing Note:
[2020-05-16] MEDS: Albuterol/Ipratropium 3 ML UPD VIAL IH ×2 (02:07→17:30)
[2020-05-16] MEDS: Lactated Ringers 1,000 ML 150 ML IV (05:41)
[2020-05-16 08:05] LABS: Abs Immature Grans 0.07 k/cumm (0.0-0.09); Absolute Basophil Count 0.02 k/cumm (0.0-0.2); Absolute Eosinophil Count 0.02 k/cumm (0.0-0.7); Absolute Monocyte Count 1.36 k/cumm (0.11-0.7); Absolute Neutrophil Count 15.77 k/cumm (1.2-6.7); Basophils % 0.1; Eosinophils % 0.1; HCT 31.7 % (36.0-46.0); HGB 9.8 g/dL (12.0-15.5); Immature Grans % 0.4 %; Mean Corp. HGB Concentration 30.9 g/dL (32.0-36.0); Mean Corpuscular Hemoglobin 29.4 pg (27.0-33.0); Mean Corpuscular Volume 95.2 fL (80-95); Mean Platelet Volume 9.6 fL (8.0-11.0); Monocytes % 7.4; Platelet Count 316 x1000/uL (130-400); RBC 3.33 m/cumm (4.00-5.20); RBC Distribution Width 15.7 % (11.7-14.6); White Blood Cell Count 18.34 k/cumm (4.4-10.8)
[2020-05-16 08:12] LABS: Anion Gap 11.3 mmol/L (3-11); BUN 18 mg/dL (7-18); CO2 25.7 mmol/L (21.0-32.0); CREATININE 0.96 mg/dL (0.55-1.02); Calcium 8.3 mg/dL (8.5-10.1); Chloride 103 mmol/L (98-107); Estimated GFR 55.64 (mL/min/1.73m2); Glucose 112 mg/dL (74-106); Potassium 3.2 mmol/L (3.5-5.1); Sodium 140 mmol/L (136-145)
[2020-05-16 08:22] LABS: Anisocytosis 1+; Diff Comment RBC Morph Reviewed; Hypochromasia 1+; Polychromasia Present
--- NOTE | 2020-05-16 08:54 | PDOC.CMPRO ---
- If Service Date Differs Date of service: 05/16/20 Time of Service: 08:54 Care Management Progress Note S/O: Lisa was sleeping when CM attempted to meet with her. Per report, she had more abdominal pain overnight that required morphine. Her G-tube is hooked up to suction and the output is decreasing. If that continues she will be able to start receivng clear liquids. Dr. Morrow noted that Lisa is not interested in having any additional testing at this time.begin A: Lisa is an 80 year old woman admitted on 05/14/20 with a partial SBO P: Per report, is attempting to resolve the SBO with non surgical intervention at this time. If it does not resolve, her condition will be re evaluated. Once resolved, she will likely return home with a resumption of care and community services. CM will continue to follow.
[2020-05-16] MEDS: Metoprolol CR 25 MG TABCR 12.5 MG PO ×2 (09:13→20:14)
[2020-05-16] MEDS: guaiFENesin 200 MG/10 ML CUP 400 MG PO (09:13)
[2020-05-16] MEDS: Docusate Sodium 100 MG CAP PO (09:13)
[2020-05-16] MEDS: Apixaban 2.5 MG TAB PO (09:13)
[2020-05-16] MEDS: POTASSIUM CHLORIDE 20 MEQ/100 ML BAG 50 MEQ IVPB (09:29)
[2020-05-16] MEDS: Docusate Sodium 100 MG/10 ML CUP PO ×2 (09:30→20:15)
--- NOTE | 2020-05-16 10:42 | PHA.REVIEW ---
Pharmacy Admission Review - Admission Clinical Review (Last Reviewed 05/15/20 @ 09:57 by Haydee Morrow MD) Partial obstruction of small intestine (Acute) atorvastatin Adverse Reaction (Intermediate, Unverified 05/14/20 16:32) pt does not think she has an allergy to this med Height 5 ft 4 in Weight 77 kg - Renal Dosing Renal Dosing: BUN 18 mg/dL (7-18) 05/16/20 07:06 Creatinine 0.96 mg/dL (0.55-1.02) 05/16/20 07:06 Medications needing adjustments: Intervened (Crcl ~39 mL/min apixaban dose can be increased back up to 5 mg BID, will mention to provider.) - Anticoagulation Anticoagulation: Hgb 9.8 g/dL (12.0-15.5) L 05/16/20 07:06 Hct 31.7 % (36.0-46.0) L 05/16/20 07:06 Plt Count 316 x1000/uL (130-400) 05/16/20 07:06 Creatinine 0.96 mg/dL (0.55-1.02) 05/16/20 07:06 DVT Prohphylaxis: N/A Therapeutic Anticoagulation: Reviewed Medications: Apixaban (see note on renal dosing adjustment) - Opiate Usage Evaluate Pain Scale/Pains Meds: Reviewed Scheduled Bowel Reg ordered if on Opiates?: Yes - Relevant Labs Sodium 140 mmol/L (136-145) 05/16/20 07:06 Potassium 3.2 mmol/L (3.5-5.1) L 05/16/20 07:06 Chloride 103 mmol/L (98-107) 05/16/20 07:06 Magnesium 2.0 mg/dL (1.8-2.4) 05/14/20 16:11 Electrolytes, C-Reactive P, ESR: Reviewed (K+ replacement ordered) - DM Control DM Control: Glucose 112 mg/dL (74-106) H 05/16/20 07:06 Insulin Dosing: N/A - Heart Failure/SC Heart Failure/SC: Troponin I < 0.05 ng/mL (<0.06) 05/14/20 19:15 EF%, JOSHUA's, B-Blockers, Diuretics: N/A - BP Control BP Control: Blood Pressure 124/75 If elevated: N/A - Qtc Review If Elevated: N/A - IV to PO Switch IV Medications: N/A - Home Meds Home Med List reviewed: Reviewed (ipratropium may increase the ulcerogenic effect of potassium (solid oral dosage form); consider alternative dosage form.) Relevent Home Meds Not ordered & why?: furosemide, metoclopramide, potassium chloride (SBO) - Current meds Current Medication Order Review: Reviewed - Comments Comments/Follow Ups: watch K+, H/H, renal function, and for med changes (IV to PO meds once pt improves)
--- NOTE | 2020-05-16 12:14 | PGE_ITS ---
Date of Service Date of service: 05/16/20 Time of Service: 12:14 Assessment and Plan Assessment and plan (1) Partial obstruction of small intestine: Status: Acute Assessment and plan: She is having bowel activity and only had 150 out the gastrostomy overnight. Clamping Gtube for four hours and if residual low will start clears. Her WBC remains elevated despite clear source of infection. No fever. Will start cipro empirically given her history of Klebsiella UTI. I discussed further testing including a SBFT and pelvic US. She does not want to have any further testing done at this time. Will discuss further tomorrow. Subjective Subjective Interval history since last seen: Patient has no complaints at this time. She is still having some LLQ pain and used a dose of morphine early this morning. Had a large BM later this morning and is passing flatus. Again denies cough or dysuria Exam Narrative Exam Narrative: Alert, no acute distress Gastrostomy tube is clamped Abdomen soft, mild epigastric and LLQ tenderness. Stable. No peritonitis. Left thigh skin graft site clean, no infection. Some scattered islands of healed skin but mostly granulation tissue. Objective Objective Clinical Data: Abnormal lab results 05/16/20 05/16/20 Range/Units 07:06 07:06 WBC 18.34 H (4.4-10.8) k/cumm RBC 3.33 L (4.00-5.20) m/cumm Hgb 9.8 L (12.0-15.5) g/dL Hct 31.7 L (36.0-46.0) % MCV 95.2 H (80-95) fL MCHC 30.9 L (32.0-36.0) g/dL RDW 15.7 H (11.7-14.6) % Absolute Neutrophils 15.77 H (1.2-6.7) k/cumm Absolute Lymphocytes 1.10 L (1.2-3.4) k/cumm Absolute Monocytes 1.36 H (0.11-0.7) k/cumm Potassium 3.2 L (3.5-5.1) mmol/L Anion Gap 11.3 H (3-11) mmol/L Glucose 112 H (74-106) mg/dL Calcium 8.3 L (8.5-10.1) mg/dL Vital Signs Temperature 97.5 F L 05/16/20 07:20 Temperature Source Temporal Artery Scan 05/16/20 07:20 Pulse 85 05/16/20 07:20 Pulse Rhythm Regular 05/16/20 07:20 Respiratory Rate 16 05/16/20 07:20 Respiratory Effort Non-Labored 05/16/20 07:20 Respiratory Depth Normal 05/16/20 07:20 Respiratory Pattern Normal 05/16/20 07:20 Blood Pressure 124/75 05/16/20 07:20 Blood Pressure Position Sitting 05/14/20 15:49 Pulse Oximetry 98 05/16/20 07:20 Oxygen Delivery Method Hi Flow Nasal Cannula 05/16/20 07:20 Oxygen Flow Rate 30 05/16/20 07:20 Fraction of Inspired Oxygen (FIO2) 27 05/16/20 07:20 Pain Level 5 05/16/20 07:20 Comment 05/15/20 21:35 Intake & Output 05/15/20 05/16/20 05/16/20 23:59 11:59 23:59 Intake Total 2062.5 / 5062.5 915 / 915 Output Total 150 / 1000 250 / 250 Balance 1912.5 / 4062.5 665 / 665 Weight 169 lb 12.095 oz Intake: IV 1962.5 / 4962.5 915 / 915 Oral 100 / 100 Output: Gastric Drainage 150 / 1000 150 / 150 Lt Upper Quadrant 150 / 1000 150 / 150 Urine 100 / 100 Other: Urine Color Yellow Yellow Urine Appearance Clear Urine Odor Normal Normal Comment Void x1 in the briefs. Briefs were changed. Void x1 in the briefs. Briefs were changed. Stool Size Large Stool Characteristics Soft Formed Brown Voiding Methods Diaper Diaper Incontinent Incontinent Laboratory Results WBC 18.34 k/cumm (4.4-10.8) H 05/16/20 07:06 RBC 3.33 m/cumm (4.00-5.20) L 05/16/20 07:06 Hgb 9.8 g/dL (12.0-15.5) L 05/16/20 07:06 Hct 31.7 % (36.0-46.0) L 05/16/20 07:06 MCV 95.2 fL (80-95) H 05/16/20 07:06 MCH 29.4 pg (27.0-33.0) 05/16/20 07:06 MCHC 30.9 g/dL (32.0-36.0) L 05/16/20 07:06 RDW 15.7 % (11.7-14.6) H 05/16/20 07:06 Plt Count 316 x1000/uL (130-400) 05/16/20 07:06 MPV 9.6 fL (8.0-11.0) 05/16/20 07:06 Immature Gran % 0.4 % 05/16/20 07:06 Neutrophils % 86.0 05/16/20 07:06 Lymphocytes % 6.0 05/16/20 07:06 Monocytes % 7.4 05/16/20 07:06 Eosinophils % 0.1 05/16/20 07:06 Basophils % 0.1 05/16/20 07:06 Absolute Neutrophils 15.77 k/cumm (1.2-6.7) H 05/16/20 07:06 Absolute Lymphocytes 1.10 k/cumm (1.2-3.4) L 05/16/20 07:06 Absolute Monocytes 1.36 k/cumm (0.11-0.7) H 05/16/20 07:06 Absolute Eosinophils 0.02 k/cumm (0.0-0.7) 05/16/20 07:06 Absolute Basophils 0.02 k/cumm (0.0-0.2) 05/16/20 07:06 Differential Comment Rbc morph reviewed 05/16/20 07:06 RBC Morphology See below 05/16/20 07:06 Polychromasia Present 05/16/20 07:06 Hypochromasia 1+ 05/16/20 07:06 Anisocytosis 1+ 05/16/20 07:06 Sodium 140 mmol/L (136-145) 05/16/20 07:06 Potassium 3.2 mmol/L (3.5-5.1) L 05/16/20 07:06 Chloride 103 mmol/L (98-107) 05/16/20 07:06 Carbon Dioxide 25.7 mmol/L (21.0-32.0) 05/16/20 07:06 Anion Gap 11.3 mmol/L (3-11) H 05/16/20 07:06 BUN 18 mg/dL (7-18) 05/16/20 07:06 Creatinine 0.96 mg/dL (0.55-1.02) 05/16/20 07:06 Estimated GFR/1.73 m2 55.64 (mL/min/1.73m2) 05/16/20 07:06 Glucose 112 mg/dL (74-106) H 05/16/20 07:06 Calcium 8.3 mg/dL (8.5-10.1) L 05/16/20 07:06 Magnesium 2.0 mg/dL (1.8-2.4) 05/14/20 16:11 Total Bilirubin 0.5 mg/dL (0.2-1.0) 05/14/20 16:11 AST 20 U/L (15-37) 05/14/20 16:11 ALT 15 U/L (14-59) 05/14/20 16:11 Alkaline Phosphatase 100 U/L (46-116) 05/14/20 16:11 Troponin I < 0.05 ng/mL (<0.06) 05/14/20 19:15 Total Protein 7.9 g/dL (6.4-8.2) 05/14/20 16:11 Albumin 2.8 g/dL (3.4-5.0) L 05/14/20 16:11 COVID-19 PCR Negative (Negative) 05/14/20 17:30 Nasopharyn COVID-19 PCR Not Applicable 05/14/20 17:30 Ref Test Perform Site [facility] lab 05/14/20 17:30
[2020-05-16] MEDS: Lactated Ringers 1,000 ML 125 ML IV ×2 (12:31→21:35)
[2020-05-16] MEDS: Normal Saline 500 ML 30 ML IV (12:32)
[2020-05-16] MEDS: ACETAMINOPHEN 1,000 MG/100 ML BTL 400 MG IVPB (12:32)
[2020-05-16] MEDS: CIPROFLOXACIN 400 MG/200 ML BAG 200 MG IVPB ×2 (12:53→23:56)
[2020-05-16] MEDS: Pantoprazole 40 MG VIAL IVP (18:29)
[2020-05-16] MEDS: Normal Saline Flush 10 ML SYR IVP (18:29)
[2020-05-16] MEDS: Apixaban 5 MG TAB PO (20:15)
--- NOTE | 2020-05-17 | DI.RAD_ITS ---
EXAM: RF SMALL BOWEL SERIES CLINICAL HISTORY: Small bowel obstruction TECHNIQUE: 2D and realtime digital imaging was performed. CONTRAST MATERIAL: Oral water-soluble contrast was administered. COMPARISON: CT CT ABDOMEN PELVIS W from 04/21/[address] ABDOMEN PELVIS W from 05/13/2020 FINDINGS: Oral contrast was administered via the patient's gastrostomy tube. Study proceeded for 270 minutes. The stomach remains distended with contrast. The duodenum and proximal small bowel are dilated. Th e oral contrast contrast did not advance beyond the proximal small-bowel consistent with a bowel obst ruction. IMPRESSION: Findings consistent with the proximal small bowel obstruction. The findings were discussed with Dr. Morrow on the date of the examination.
[2020-05-17] MEDS: Lactated Ringers 1,000 ML 125 ML IV ×2 (06:02→17:17)
[2020-05-17 07:24] LABS: Abs Immature Grans 0.08 k/cumm (0.0-0.09); Absolute Eosinophil Count 0.08 k/cumm (0.0-0.7); Absolute Lymphocyte Count 1.65 k/cumm (1.2-3.4); Basophils % 0.1; Eosinophils % 0.5; HCT 29.7 % (36.0-46.0); HGB 9.4 g/dL (12.0-15.5); Immature Grans % 0.5 %; Lymphocytes % 10.1; Mean Corp. HGB Concentration 31.6 g/dL (32.0-36.0); Mean Corpuscular Hemoglobin 29.7 pg (27.0-33.0); Mean Platelet Volume 9.8 fL (8.0-11.0); Monocytes % 6.6; Neutrophils % 82.2; Platelet Count 284 x1000/uL (130-400); RBC 3.16 m/cumm (4.00-5.20); RBC Distribution Width 15.1 % (11.7-14.6); White Blood Cell Count 16.29 k/cumm (4.4-10.8)
[2020-05-17 07:27] LABS: Absolute Basophil Count 0.02 k/cumm (0.0-0.2); Absolute Monocyte Count 1.08 k/cumm (0.11-0.7); Absolute Neutrophil Count 13.39 k/cumm (1.2-6.7)
[2020-05-17 08:00] VITALS: BP 122/69; PULSE 79; RESP 17; TEMP 36.8; O2SAT 96
--- NOTE | 2020-05-17 08:48 | W.PM.PROGNOT ---
Date of Service Date of service: 05/17/20 Time of Service: 08:48 Assessment and Plan Assessment and plan (1) Partial obstruction of small intestine: Status: Acute Assessment and plan: She has a mixed picture with bowel activity but ongoing vomiting. Will do small bowel study today. Hold Eliquis and have anesthesia review chart in preparation for possible surgery. May need to consider TPN soon. Subjective Subjective Interval history since last seen: Patient currently has no complaints. Tolerated clear liquids for dinner last night but had emesis at 2am this morning. Was preceded by abdominal pain that improved with emesis. Gastrostomy put out 1000cc when reconnected. She had loose stool this am and is passing flatus. Exam Narrative Exam Narrative: Alert Abdomen soft, nondistended. Mild LLQ tenderness but less than yesterday. Objective Objective Clinical Data: Abnormal lab results 05/17/20 Range/Units 06:40 WBC 16.29 H (4.4-10.8) k/cumm RBC 3.16 L (4.00-5.20) m/cumm Hgb 9.4 L (12.0-15.5) g/dL Hct 29.7 L (36.0-46.0) % MCHC 31.6 L (32.0-36.0) g/dL RDW 15.1 H (11.7-14.6) % Absolute Neutrophils 13.39 H (1.2-6.7) k/cumm Absolute Monocytes 1.08 H (0.11-0.7) k/cumm Vital Signs Temperature 98.2 F 05/17/20 08:00 Temperature Source Tympanic 05/17/20 08:00 Pulse 79 05/17/20 08:00 Pulse Rhythm Regular 05/16/20 20:15 Respiratory Rate 17 05/17/20 08:00 Respiratory Effort Non-Labored 05/16/20 20:15 Respiratory Depth Normal 05/16/20 20:15 Respiratory Pattern Normal 05/16/20 20:15 Blood Pressure 122/69 05/17/20 08:00 Blood Pressure Position Sitting 05/14/20 15:49 Pulse Oximetry 96 05/17/20 08:00 Oxygen Delivery Method Hi Flow Nasal Cannula 05/17/20 08:00 Oxygen Flow Rate 30 05/17/20 08:00 Fraction of Inspired Oxygen (FIO2) 27 05/17/20 08:00 Pain Level 0 05/17/20 08:00 Comment 05/16/20 17:13 Intake & Output 05/16/20 05/16/20 05/17/20 11:59 23:59 11:59 Intake Total 1115 / 3571.583 2456.583 / 3571.583 1000 / 1000 Output Total 250 / 270 20 / 270 1050 / 1050 Balance 865 / 3301.583 2436.583 / 3301.583 -50 / -50 Intake: IV 1015 / 3326.583 2311.583 / 3326.583 1000 / 1000 Oral 100 / 245 145 / 245 Output: Gastric Drainage 150 / 170 20 / 170 1050 / 1050 Lt Upper Quadrant 150 / 170 20 / 170 1050 / 1050 Urine 100 / 100 0 / 0 Other: Urine Color Yellow Yellow Pale Urine Appearance Clear Clear Urine Odor Normal Normal Comment Void x1 in the briefs. Briefs were changed. Void x1 in the briefs. Briefs were changed. Stool Size Large Moderate Large Stool Characteristics Soft Liquid Liquid Formed Brown Brown Voiding Methods Diaper Diaper Diaper Incontinent Incontinent Incontinent Laboratory Results WBC 16.29 k/cumm (4.4-10.8) H 05/17/20 06:40 RBC 3.16 m/cumm (4.00-5.20) L 05/17/20 06:40 Hgb 9.4 g/dL (12.0-15.5) L 05/17/20 06:40 Hct 29.7 % (36.0-46.0) L 05/17/20 06:40 MCV 94.0 fL (80-95) 05/17/20 06:40 MCH 29.7 pg (27.0-33.0) 05/17/20 06:40 MCHC 31.6 g/dL (32.0-36.0) L 05/17/20 06:40 RDW 15.1 % (11.7-14.6) H 05/17/20 06:40 Plt Count 284 x1000/uL (130-400) 05/17/20 06:40 MPV 9.8 fL (8.0-11.0) 05/17/20 06:40 Immature Gran % 0.5 % 05/17/20 06:40 Neutrophils % 82.2 07/13/20 06:40 Lymphocytes % 10.1 05/17/20 06:40 Monocytes % 6.6 05/17/20 06:40 Eosinophils % 0.5 05/17/20 06:40 Basophils % 0.1 05/17/20 06:40 Absolute Neutrophils 13.39 k/cumm (1.2-6.7) H 05/17/20 06:40 Absolute Lymphocytes 1.65 k/cumm (1.2-3.4) 05/17/20 06:40 Absolute Monocytes 1.08 k/cumm (0.11-0.7) H 05/17/20 06:40 Absolute Eosinophils 0.08 k/cumm (0.0-0.7) 05/17/20 06:40 Absolute Basophils 0.02 k/cumm (0.0-0.2) 05/17/20 06:40 Differential Comment Rbc morph reviewed 05/16/20 07:06 RBC Morphology See below 05/16/20 07:06 Polychromasia Present 05/16/20 07:06 Hypochromasia 1+ 05/16/20 07:06 Anisocytosis 1+ 05/16/20 07:06 Sodium 140 mmol/L (136-145) 05/16/20 07:06 Potassium 3.2 mmol/L (3.5-5.1) L 05/16/20 07:06 Chloride 103 mmol/L (98-107) 05/16/20 07:06 Carbon Dioxide 25.7 mmol/L (21.0-32.0) 05/16/20 07:06 Anion Gap 11.3 mmol/L (3-11) H 05/16/20 07:06 BUN 18 mg/dL (7-18) 05/16/20 07:06 Creatinine 0.96 mg/dL (0.55-1.02) 05/16/20 07:06 Estimated GFR/1.73 m2 55.64 (mL/min/1.73m2) 05/16/20 07:06 Glucose 112 mg/dL (74-106) H 05/16/20 07:06 Calcium 8.3 mg/dL (8.5-10.1) L 05/16/20 07:06 Magnesium 2.0 mg/dL (1.8-2.4) 05/14/20 16:11 Total Bilirubin 0.5 mg/dL (0.2-1.0) 05/14/20 16:11 AST 20 U/L (15-37) 05/14/20 16:11 ALT 15 U/L (14-59) 05/14/20 16:11 Alkaline Phosphatase 100 U/L (46-116) 05/14/20 16:11 Troponin I < 0.05 ng/mL (<0.06) 05/14/20 19:15 Total Protein 7.9 g/dL (6.4-8.2) 05/14/20 16:11 Albumin 2.8 g/dL (3.4-5.0) L 05/14/20 16:11 COVID-19 PCR Negative (Negative) 05/14/20 17:30 Nasopharyn COVID-19 PCR Not Applicable 05/14/20 17:30 Ref Test Perform Site [facility] lab 05/14/20 17:30
[2020-05-17] MEDS: Metoprolol CR 25 MG TABCR 12.5 MG PO ×2 (11:23→19:49)
[2020-05-17] MEDS: CIPROFLOXACIN 400 MG/200 ML BAG 200 MG IVPB ×2 (11:23→23:31)
[2020-05-17] MEDS: Normal Saline Flush 10 ML SYR IVP ×2 (11:29→17:25)
--- NOTE | 2020-05-17 13:21 | CHAPLAIN ---
Lisa was sitting up in bed when I visited. She had recent surgery and doesn't speak, but mouthed words when I introduced myself and explained my role. Lisa has identified her son, Abdulaziz, as her support person to visit her while she's here, according to Care Management notes.
--- NOTE | 2020-05-17 14:45 | CMPROGNOTE_ITS ---
- If Service Date Differs Date of service: 05/17/20 Time of Service: 14:45 Care Management Progress Note S/O: Lisa was having a small bowel study today when CM attempted to visit with her. LILLI spoke to her daughter, Trini (work [phone]) who reported that Lisa has an appointment with Dr. Bañuelos on 05/20/20, and she is concerned that she won't have her trach replaced. Trini asked if RT would be able to replace the trach, specifically Hanna Tomas. CM called RT, and spoke to Kain, who stated that Hanna would be the person to ask. Later, LILLI was able to visit with Lisa and Abdulaziz, and also spoke on the phone with Trini again. They were all concerned that the surgeon was discussing surgery, and they do not want her to have anything down her throat d/t her reconstruction surgery that was 7 months ago. LILLI spoke to the surgeon, Dr. Morrow, who reported that the surgery would be laproscopic or open, but not down her throat. Dr. Morrow stated that Lisa decided to have the surgery here tomorrow, instead of transferring to [facility]. Per MD, Abdulaziz is calling Trini to inform her of the plan. CM will continue to follow. A: Lisa is an 80 year old woman admitted on 05/14/20 with a partial SBO P: Per report, is attempting to resolve the SBO with non surgical intervention at this time. If it does not resolve, her condition will be re evaluated. Once resolved, she will likely return home with a resumption of care and community services. LILLI will continue to follow.
[2020-05-17 15:54] VITALS: BP 126/70; PULSE 89; RESP 17; TEMP 36.6; O2SAT 94
--- NOTE | 2020-05-17 16:59 | W.PM.PROGNOT ---
Date of Service Date of service: 05/17/20 Time of Service: 17:00 Assessment and Plan Assessment and plan (1) Partial obstruction of small intestine: Status: Acute Assessment and plan: The patient developed pain and vomiting after the small bowel follow through that was relieved by resuming wall suction. The study was reviewed with the radiologist and shows no passage of contrast beyond the mid small bowel after 4 hours. She has failed non-surgical management. I offered laparoscopy with probably laparotomy, lysis of adhesions, possible small bowel resection. The procedure and risks were discussed with the patient and her son. I also communicated with her daughter Jasmin and her son communicated with another daughter Trini. She will need ICU placement postop and may need a period of ventilation. The patient agrees to proceed with surgery. This is tentatively scheduled for tomorrow. Will discuss further with patient in the am. Objective Objective Clinical Data: Abnormal lab results 05/17/20 Range/Units 06:40 WBC 16.29 H (4.4-10.8) k/cumm RBC 3.16 L (4.00-5.20) m/cumm Hgb 9.4 L (12.0-15.5) g/dL Hct 29.7 L (36.0-46.0) % MCHC 31.6 L (32.0-36.0) g/dL RDW 15.1 H (11.7-14.6) % Absolute Neutrophils 13.39 H (1.2-6.7) k/cumm Absolute Monocytes 1.08 H (0.11-0.7) k/cumm Vital Signs Temperature 97.9 F 05/17/20 15:54 Temperature Source Tympanic 05/17/20 15:54 Pulse 89 05/17/20 15:54 Pulse Rhythm Regular 05/17/20 15:48 Respiratory Rate 17 05/17/20 15:54 Respiratory Effort 05/17/20 15:48 Respiratory Depth Normal 05/17/20 15:48 Respiratory Pattern Normal 05/17/20 15:48 Blood Pressure 126/70 05/17/20 15:54 Blood Pressure Position Sitting 05/14/20 15:49 Pulse Oximetry 94 L 05/17/20 15:54 Oxygen Delivery Method Trach Collar 05/17/20 15:54 Oxygen Flow Rate 30 05/17/20 08:00 Fraction of Inspired Oxygen (FIO2) 27 05/17/20 15:54 Pain Level 0 05/17/20 08:00 Comment 05/16/20 17:13 Intake & Output 05/16/20 05/17/20 05/17/20 23:59 11:59 23:59 Intake Total 2456.583 / 3571.583 1664.583 / 2064.583 400 / 2064.583 Output Total 270 1250 / 2750 1500 / 2750 Balance 2436.583 / 3301.583 414.583 / -685.417 -1100 / -685.417 Intake: IV 2311.583 / 3326.583 1664.583 / 2064.583 400 / 2064.583 Oral 145 / 245 Output: Gastric Drainage 1250 / 2650 1400 / 2650 Lt Upper Quadrant 1250 / 2650 1400 / 2650 Urine 0 / 0 Emesis 100 / 100 Other: Urine Color Yellow Pale Urine Appearance Clear Urine Odor Normal Comment Void x1 in the briefs. Briefs were changed. Stool Size Moderate Large Stool Characteristics Liquid Liquid Brown Emesis Description Retching Bile Voiding Methods Diaper Diaper Incontinent Incontinent Laboratory Results WBC 16.29 k/cumm (4.4-10.8) H 05/17/20 06:40 RBC 3.16 m/cumm (4.00-5.20) L 05/17/20 06:40 Hgb 9.4 g/dL (12.0-15.5) L 05/17/20 06:40 Hct 29.7 % (36.0-46.0) L 05/17/20 06:40 MCV 94.0 fL (80-95) 05/17/20 06:40 MCH 29.7 pg (27.0-33.0) 05/17/20 06:40 MCHC 31.6 g/dL (32.0-36.0) L 05/17/20 06:40 RDW 15.1 % (11.7-14.6) H 05/17/20 06:40 Plt Count 284 x1000/uL (130-400) 05/17/20 06:40 MPV 9.8 fL (8.0-11.0) 05/17/20 06:40 Immature Gran % 0.5 % 05/17/20 06:40 Neutrophils % 82.2 05/17/20 06:40 Lymphocytes % 10.1 05/17/20 06:40 Monocytes % 6.6 05/17/20 06:40 Eosinophils % 0.5 05/17/20 06:40 Basophils % 0.1 05/17/20 06:40 Absolute Neutrophils 13.39 k/cumm (1.2-6.7) H 05/17/20 06:40 Absolute Lymphocytes 1.65 k/cumm (1.2-3.4) 05/17/20 06:40 Absolute Monocytes 1.08 k/cumm (0.11-0.7) H 05/17/20 06:40 Absolute Eosinophils 0.08 k/cumm (0.0-0.7) 05/17/20 06:40 Absolute Basophils 0.02 k/cumm (0.0-0.2) 05/17/20 06:40 Differential Comment Rbc morph reviewed 05/16/20 07:06 RBC Morphology See below 05/16/20 07:06 Polychromasia Present 05/16/20 07:06 Hypochromasia 1+ 05/16/20 07:06 Anisocytosis 1+ 05/16/20 07:06 Sodium 140 mmol/L (136-145) 05/16/20 07:06 Potassium 3.2 mmol/L (3.5-5.1) L 05/16/20 07:06 Chloride 103 mmol/L (98-107) 05/16/20 07:06 Carbon Dioxide 25.7 mmol/L (21.0-32.0) 05/16/20 07:06 Anion Gap 11.3 mmol/L (3-11) H 05/16/20 07:06 BUN 18 mg/dL (7-18) 05/16/20 07:06 Creatinine 0.96 mg/dL (0.55-1.02) 05/16/20 07:06 Estimated GFR/1.73 m2 55.64 (mL/min/1.73m2) 05/16/20 07:06 Glucose 112 mg/dL (74-106) H 05/16/20 07:06 Calcium 8.3 mg/dL (8.5-10.1) L 05/16/20 07:06 Magnesium 2.0 mg/dL (1.8-2.4) 05/14/20 16:11 Total Bilirubin 0.5 mg/dL (0.2-1.0) 05/14/20 16:11 AST 20 U/L (15-37) 05/14/20 16:11 ALT 15 U/L (14-59) 05/14/20 16:11 Alkaline Phosphatase 100 U/L (46-116) 05/14/20 16:11 Troponin I < 0.05 ng/mL (<0.06) 05/14/20 19:15 Total Protein 7.9 g/dL (6.4-8.2) 05/14/20 16:11 Albumin 2.8 g/dL (3.4-5.0) L 05/14/20 16:11 COVID-19 PCR Negative (Negative) 05/14/20 17:30 Nasopharyn COVID-19 PCR Not Applicable 05/14/20 17:30 Ref Test Perform Site [facility] lab 05/14/20 17:30
[2020-05-17] MEDS: Pantoprazole 40 MG VIAL IVP (17:25)
[2020-05-17] MEDS: Docusate Sodium 100 MG/10 ML CUP PO (19:49)
[2020-05-17 20:45] VITALS: BP 109/55; PULSE 94; RESP 20; TEMP 36.6; O2SAT 94
[2020-05-17 21:17] VITALS: BP 118/57; PULSE 78; RESP 22; TEMP 36.4; O2SAT 95
[2020-05-18] VITALS (41 sets, daily range): BP systolic 112–155; BP diastolic 42–88; PULSE 59–99; RESP 12–28; TEMP 34–36.7; O2SAT 92–99
[2020-05-18] MEDS: Lactated Ringers 1,000 ML 125 ML IV ×2 (01:34→09:44)
[2020-05-18 07:09] LABS: HCT 31.6 % (36.0-46.0); HGB 9.9 g/dL (12.0-15.5); Mean Corp. HGB Concentration 31.3 g/dL (32.0-36.0); Mean Corpuscular Hemoglobin 29.2 pg (27.0-33.0); Mean Corpuscular Volume 93.2 fL (80-95); Mean Platelet Volume 9.5 fL (8.0-11.0); Platelet Count 305 x1000/uL (130-400); RBC 3.39 m/cumm (4.00-5.20); RBC Distribution Width 15.1 % (11.7-14.6); White Blood Cell Count 11.28 k/cumm (4.4-10.8)
--- NOTE | 2020-05-18 07:40 | PGE_ITS ---
Date of Service Date of service: 05/18/20 Time of Service: 12:18 Assessment and Plan Assessment and plan (1) Partial obstruction of small intestine: Status: Acute Assessment and plan: The patient has not improve with non-operative management and the SBFT shows continued obstruction. Will proceed with laparoscopy, probable laparotomy with lysis of adhesions and possible small bowel resection. The procedure was discussed with the patient and her son this morning. The risks of infection, bleeding, hernia, injury to other organs, leak with need for further surgery was discussed. She may need ventilation postop. Dr. Kidd has agreed to see her. A PICC line has been place and TPN ordered. Subjective Subjective Interval history since last seen: Not passing flatus and has not had BM No current pain but has been using morphine intermittently Exam Narrative Exam Narrative: Alert Lungs CTA Heart RRR Abdomen distended but not tense. Mild epigastric and LLQ tenderness. Objective Objective Clinical Data: Abnormal lab results 05/18/20 Range/Units 06:30 WBC 11.28 H D (4.4-10.8) k/cumm RBC 3.39 L (4.00-5.20) m/cumm Hgb 9.9 L (12.0-15.5) g/dL Hct 31.6 L (36.0-46.0) % MCHC 31.3 L (32.0-36.0) g/dL RDW 15.1 H (11.7-14.6) % Vital Signs Temperature 98.1 F 05/18/20 02:20 Temperature Source Temporal Artery Scan 05/18/20 02:20 Pulse 88 05/18/20 02:20 Pulse Rhythm Regular 05/18/20 00:22 Respiratory Rate 20 05/18/20 02:20 Respiratory Effort 05/18/20 00:22 Respiratory Depth Normal 05/18/20 00:22 Respiratory Pattern Normal 05/18/20 00:22 Blood Pressure 117/42 L 05/18/20 02:20 Blood Pressure Mean 77 05/17/20 21:17 Blood Pressure Position Sitting 05/17/20 21:17 Pulse Oximetry 95 05/18/20 02:20 Oxygen Delivery Method Hi Flow Nasal Cannula 05/18/20 02:20 Oxygen Flow Rate 0 05/18/20 02:20 Fraction of Inspired Oxygen (FIO2) 21 07/14/20 00:26 Pain Level 6 05/17/20 21:17 Comment 05/16/20 17:13 Intake & Output 05/17/20 05/17/20 05/18/20 11:59 23:59 11:59 Intake Total 1664.583 / 2600.000 935.417 / 2600.000 1000 / 1000 Output Total 1250 / 3750 2500 / 3750 125 / 125 Balance 414.583 / -1150.000 -1564.583 / -1150.000 875 / 875 Weight 169 lb 12.095 oz 169 lb 12.095 oz Intake: IV 1664.583 / 2600.000 935.417 / 2600.000 1000 / 1000 Output: Gastric Drainage 1250 / 3650 2400 / 3650 Lt Upper Quadrant 1250 / 3650 2400 / 3650 Urine 0 / 0 125 / 125 Emesis 100 / 100 Other: Urine Color Pale Yellow Yellow Urine Appearance Clear Clear Urine Odor Strong Strong Comment large incontinence Stool Size Large Stool Characteristics Liquid Brown Emesis Description Retching Bile Voiding Methods Diaper Incontinent Bedside Commode Incontinent Laboratory Results WBC 11.28 k/cumm (4.4-10.8) H D 05/18/20 06:30 RBC 3.39 m/cumm (4.00-5.20) L 05/18/20 06:30 Hgb 9.9 g/dL (12.0-15.5) L 05/18/20 06:30 Hct 31.6 % (36.0-46.0) L 05/18/20 06:30 MCV 93.2 fL (80-95) 05/18/20 06:30 MCH 29.2 pg (27.0-33.0) 05/18/20 06:30 MCHC 31.3 g/dL (32.0-36.0) L 05/18/20 06:30 RDW 15.1 % (11.7-14.6) H 05/18/20 06:30 Plt Count 305 x1000/uL (130-400) 05/18/20 06:30 MPV 9.5 fL (8.0-11.0) 05/18/20 06:30 Immature Gran % 0.5 % 05/17/20 06:40 Neutrophils % 82.2 05/17/20 06:40 Lymphocytes % 10.1 05/17/20 06:40 Monocytes % 6.6 05/17/20 06:40 Eosinophils % 0.5 05/17/20 06:40 Basophils % 0.1 05/17/20 06:40 Absolute Neutrophils 13.39 k/cumm (1.2-6.7) H 05/17/20 06:40 Absolute Lymphocytes 1.65 k/cumm (1.2-3.4) 05/17/20 06:40 Absolute Monocytes 1.08 k/cumm (0.11-0.7) H 05/17/20 06:40 Absolute Eosinophils 0.08 k/cumm (0.0-0.7) 05/17/20 06:40 Absolute Basophils 0.02 k/cumm (0.0-0.2) 05/17/20 06:40 Differential Comment Rbc morph reviewed 05/16/20 07:06 RBC Morphology See below 05/16/20 07:06 Polychromasia Present 05/16/20 07:06 Hypochromasia 1+ 05/16/20 07:06 Anisocytosis 1+ 05/16/20 07:06 Sodium 140 mmol/L (136-145) 05/16/20 07:06 Potassium 3.2 mmol/L (3.5-5.1) L 05/16/20 07:06 Chloride 103 mmol/L (98-107) 05/16/20 07:06 Carbon Dioxide 25.7 mmol/L (21.0-32.0) 05/16/20 07:06 Anion Gap 11.3 mmol/L (3-11) H 05/16/20 07:06 BUN 18 mg/dL (7-18) 05/16/20 07:06 Creatinine 0.96 mg/dL (0.55-1.02) 05/16/20 07:06 Estimated GFR/1.73 m2 55.64 (mL/min/1.73m2) 05/16/20 07:06 Glucose 112 mg/dL (74-106) H 05/16/20 07:06 Calcium 8.3 mg/dL (8.5-10.1) L 05/16/20 07:06 Magnesium 2.0 mg/dL (1.8-2.4) 05/14/20 16:11 Total Bilirubin 0.5 mg/dL (0.2-1.0) 05/14/20 16:11 AST 20 U/L (15-37) 05/14/20 16:11 ALT 15 U/L (14-59) 05/14/20 16:11 Alkaline Phosphatase 100 U/L (46-116) 05/14/20 16:11 Troponin I < 0.05 ng/mL (<0.06) 05/14/20 19:15 Total Protein 7.9 g/dL (6.4-8.2) 05/14/20 16:11 Albumin 2.8 g/dL (3.4-5.0) L 05/14/20 16:11 COVID-19 PCR Negative (Negative) 05/14/20 17:30 Nasopharyn COVID-19 PCR Not Applicable 05/14/20 17:30 Ref Test Perform Site [facility] lab 05/14/20 17:30
--- NOTE | 2020-05-18 08:28 | CMPROGNOTE_ITS ---
- If Service Date Differs Date of service: 05/18/20 Time of Service: 08:28 Care Management Progress Note S/O: CM met with Lisa at the bedside she states she is nervous but comfortable having her procedure here at [facility]. Her son Abdulaziz is in the room with her and supportive. Lisa will go to the OR this afternoon to relieve her bowl obstruction. Her plan will be to return home when she is medically ready and resumption of her home care providers and support of her family. No other changes at this time, CM will continue to monitor for discharge needs and coordination of care. A: Lisa is an 80 year old woman admitted on 05/14/20 with a partial SBO P: Lisa will be discharged home when medically ready per provider. She will have OR procedure today to attempt to relieve the SBO. She will need resumption of home health orders for nursing and [employer], with the possibility of PT and OT if needed. CM will continue to follow and assess for ongoing discharge needs.
[2020-05-18] MEDS: Metoprolol CR 25 MG TABCR 12.5 MG PO (09:27)
--- NOTE | 2020-05-18 09:43 | W.NUTCONSULT ---
Date of service: 05/18/20 Time of Service: 09:43 Nutritional Consult ASSESSMENT: 80 year old female admitted to ICU with SBO. BMI 29 indicating overweight status. Appears well nourished. Nutrition Consult received for TPN recommendations received today due to extended NPO status. PMH: unremarkable. Labs reviewed and will follow. Estimated Needs: 1960-5833 kcal, 54-64 g protein, 1620 ml fluid NUTRITIONAL DIAGNOSIS: Unable to meet nutrient needs by mouth with NPO order in need of nutrition support via TPN/Picc line INTERVENTION: NPO TPN : Dextrose 10%/Amino Acids 4.25% in 2 L run @83cc/hour with 20% lipids: 250 ml qd providing total of 1520 kcal/84 g protein, 55 g fat. standard electrolytes, MVI and trace elements, clinical pharmacist to monitor labs and adjust formula as needed. MONITORING AND EVALUATION: will monitor weight, labs Time Spent in Nutritional Counseling and Treatment: 0 time spent face to face
--- NOTE | 2020-05-18 10:30 | DI.RAD_ITS ---
EXAM: XR PORTABLE CHEST AP CLINICAL HISTORY: PICC placement TECHNIQUE: COMPARISON: CR,XR XR PORTABLE CHEST AP from 12/26/2019 CR XR PORTABLE CHEST AP POST LINE from 05/18/2020 FINDINGS: Single portable view of the chest was obtained and shows insertion of PICC catheter, the tip of which overlies the right atrium. Mild diffuse pulmonary interstitial radiodensities again noted grossly u nchanged from examination of December 2019. IMPRESSION:
--- NOTE | 2020-05-18 11:07 | DI.RAD_ITS ---
EXAM: XR PORTABLE CHEST AP POST LINE CLINICAL HISTORY: line advancement TECHNIQUE: COMPARISON: CR,XR XR PORTABLE CHEST AP from 12/26/2019 FINDINGS: Repeat AP view shows slight retraction previously noted PICC line, this now overlies junction SVC and right atrium as noted on this limited view. IMPRESSION:
[2020-05-18 11:24] LABS: ALT 9 U/L (14-59); AST 19 U/L (15-37); Alkaline Phosphatase 75 U/L (46-116); Anion Gap 10.3 mmol/L (3-11); BUN 10 mg/dL (7-18); Bilirubin, Total 0.3 mg/dL (0.2-1.0); CO2 26.7 mmol/L (21.0-32.0); Calcium 8.3 mg/dL (8.5-10.1); Chloride 102 mmol/L (98-107); Glucose 92 mg/dL (74-106); Sodium 139 mmol/L (136-145); Total Protein 5.9 g/dL (6.4-8.2)
[2020-05-18 11:28] LABS: Potassium 2.7 mmol/L (3.5-5.1)
--- NOTE | 2020-05-18 11:45 | DI.RAD_ITS ---
EXAM: XR PORTABLE CHEST AP POST LINE CLINICAL HISTORY: PICC placement TECHNIQUE: COMPARISON: CR XR PORTABLE CHEST AP POST LINE from 05/18/2020 CR XR PORTABLE CHEST AP POST LINE from 05/18/2020 FINDINGS: Repeat chest at 1156 hours tip of the PICC line now overlies superior aspect of the right atrium.
--- NOTE | 2020-05-18 12:00 | DI.RAD_ITS ---
EXAM: XR PORTABLE CHEST AP POST LINE CLINICAL HISTORY: MICAHEL PICC post adjustment TECHNIQUE: COMPARISON: CR XR PORTABLE CHEST AP POST LINE from 05/18/2020 FINDINGS: Repeat film at 1213 hours, PICC line tip now overlies the superior aspect of the SVC. IMPRESSION:
[2020-05-18] MEDS: POTASSIUM CHLORIDE 20 MEQ/100 ML BAG 50 MEQ IVPB ×3 (12:43→22:33)
[2020-05-18] MEDS: CIPROFLOXACIN 400 MG/200 ML BAG 200 MG IVPB ×2 (13:25→13:30)
--- NOTE | 2020-05-18 14:38 | BOWEL_PTH ---
PATIENT: Lisa Anderson LOC: [facility]#:[id number] AGE/SX: 80/F ROOM: RE05/14/[address]: Haydee Morrow MD : [id number] BED: A DIS: 06/01/2020 SPEC #: [id number] RECD: 05/18/20 16:19 STATUS: SOULea REQ #: [id number] [place]: 05/18/20 14:[address]: Haydee Morrow DEPT: Surgical Specimen RECD BY: Letty Quintero ENTERED: 05/18/20 16:19 SP TYPE: Bowel OTHR DR: Caridad Sánchez MD, DC [facility] Tissues: 1 - BOWEL RESECTION(OTHER) Procedures: GROSS AND MICRO LEVEL 5 Comments: [id number]
--- NOTE | 2020-05-18 15:34 | W.PM.OP ---
Date of service: 05/18/20 Time of Service: 15:35 Operative Note Operative Note DATE OF PROCEDURE: 05/18/20 PRE-OP DIAGNOSIS: Small bowel obstruction POST-OP DIAGNOSIS: same (Due to adhesions) PROCEDURE: Diagnostic laparoscopy Laparotomy with small bowel resection SURGEON: Haydee Morrow [employer]ILD[employer]ERIAL[employer] DESIGNER: Winnie Yang [facility] and [facility] Patient was transported to: ICU Patient's condition: stable Indications: This patient presented with symptoms of a small bowel obstruction. Her only prior surgery was a tubal ligation. She failed conservative management. Small bowel follow-through showed obstruction in the proximal bowel. Procedure Description: The patient was placed supine on the operative table and after induction of general anesthetic had a Edwards catheter inserted and rectus sheath blocks placed by anesthesia. Her abdomen was prepped and draped sterilely. She has a gastrostomy tube that was excluded from the surgical field. A 5 mm incision was made to the left of the umbilicus and the abdomen entered under direct visualization with the laparoscope. A CO2 pneumoperitoneum was begun. An additional 5 mm port was placed in the left lower quadrant. An atraumatic instrument was used to lift up the omentum. This revealed dilated proximal small bowel and decompressed distal small bowel. There was a ischemic appearing loop of small bowel in the pelvis. The CO2 was released and the ports removed. A lower midline incision was made and the abdomen more fully explored. There was an approximately 10 cm segment of small bowel in the pelvis that had a thick adhesive band obstructing it. This was released with careful cautery and scissors. The loop of bowel actually appeared viable but where the band had been across the bowel there were there was more evidence of full-thickness ischemia. I therefore resected this segment. The bowel proximal and distal to the ischemic segment was divided with the linear stapler. The mesentery between the 2 points was taken down by clamping, dividing and ligating with 2-0 Vicryl ties. The ends of the bowel were reapproximated in a [id number] fashion. The corner of the staple line was cut on either end of the bowel to allow for insertion of the linear stapler which was fired to create an anastomosis. The TA stapler was then used to close the enterotomy sites. There was good hemostasis. A 3-0 silk stitch was placed at the corner of the anastomosis. The small bowel was run from the ligament of Treitz to the anastomosis to ensure there were no other areas of obstruction. The anastomosis was located in the mid to proximal jejunum. The abdomen showed no other obvious abnormalities. The fascia was then closed with a #1 PDS - 1 from the top one from the bottom and tied in the middle and the skin closed with desire at all incisions. She tolerated the procedure well and was stable back to intensive care.
--- NOTE | 2020-05-18 16:28 | PT.INNT ---
Date of service: 05/18/20 Time of Service: 16:28 PT Notes Visit Reasons: SMALL BOWEL OBSTRUCTION Patient just rolled into the ICU from the OR at time of PT visit. Nurse Angelina recommended seeing the patient tomorrow morning as she still was being assessed by nurse staff. Will plan to perform initial evaluation tomorrow as ordered. Thank you for the opportunity to participate in the care of this patient. Valeria Reyes PT, DPT, CLT [facility] [place], [place]
[2020-05-18] MEDS: Pantoprazole 40 MG VIAL IVP (18:52)
[2020-05-18] MEDS: Normal Saline Flush 10 ML SYR IVP ×2 (18:53→22:35)
--- NOTE | 2020-05-18 19:01 | W.MEDCONSULT ---
Date of service: 05/18/20 Time of Service: 19:02 Assessment and Plan Assessment and plan (1) Partial obstruction of small intestine: Status: Acute Assessment and plan: Management as per surgery. Initiate TPN until bowel function returns and she can tolerate feedings again through her gastrostomy tube. (2) Hypokalemia: Status: Acute Assessment and plan: We will give further IV supplementation and repeat her labs in the morning. (3) COPD (chronic obstructive pulmonary disease): Status: Chronic Assessment and plan: Continue DuoNeb treatments on a as needed basis. Recommend early mobilization of the patient to prevent atelectasis and postoperative pneumonia Qualifiers: COPD type: unspecified COPD Qualified Code(s): J44.9 - Chronic obstructive pulmonary disease, unspecified (4) History of CVA (cerebrovascular accident): Status: Acute Assessment and plan: Resume her apixaban at the earliest opportunity. 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 Patient had been seen in the ER on the day prior to admission and was found to have hypokalemia with a potassium of 2.[address] scan of the abdomen pelvis that showed possible early small bowel obstruction with some dilated loops of small bowel. Patient was admitted to the surgical service of Dr. Haydee Morrow. Patient's electrolytes were corrected with IV supplementation and patient was given IV fluids antiemetics and low intermittent suction was placed her G-tube. Patient was found to have elevated leukocytosis of 24,000 on admission which declined to 17,000 overnight which is supportive treatment with no antibiotics. However when her white count remained elevated on May 16 at 18,000 she was started on ciprofloxacin. With improvement after low intermittent wall suction via her gastrostomy tube patient was placed on a trial of clear liquids but had repeated bouts of emesis and abdominal pain necessitating reconnection of her gastrostomy tube to low intermittent wall suction. Her Eliquis was held on May 17, 2020 in anticipation of surgery and a small bowel follow-through was ordered. Her small bowel follow-through with oral water contrast was consistent with proximal small bowel obstruction. Patient underwent laparotomy and lysis of adhesions today as well as partial small bowel resection for ischemic bowel. This morning she had recurrent hypokalemia with a serum potassium of 2.8 for which the patient received 2 doses of potassium chloride 20 mEq each. First dose was given preoperatively and second 1 was completed perioperatively. Repeat potassium and magnesium levels were ordered stat postoperatively. Patient returned to ICU not requiring ventilatory support. Patient will begin TPN tonight. Review of Systems Cardiovascular Cardiovascular: Denies chest pain and Denies dyspnea Respiratory Respiratory: Denies dyspnea Gastrointestinal Gastrointestinal: Reports abdominal pain [facility] Medical History Adynamic ileus (Resolved) Benign paroxysmal vertigo Benign paroxysmal vertigo, unspecified ear (Resolved) Cataract (Resolved) O.U 02/24/14; Dr. Martin left extraction 03/10/14; Dr. Martin right extraction Cellulitis (Resolved) 07/31/16 both lower extremity Cerebral arteriovenous malformation (Chronic) Cerebral vascular malformation Cerebrovascular accident (CVA) (Chronic 01/20/16) seen on previous CT Scans 2015 Decreased muscle tone (Chronic) ANAL SPINCTER Deficient knowledge of tracheostomy home care (Inactive) Depression Depressive disorder (Chronic) DVT prophylaxis (Inactive) Dysphagia (Inactive 01/01/18) Essential hypertension (Chronic 10/31/13) Hip pain (Chronic) bilateral 2014 - mild arthritis right History of tobacco use (Resolved) 2 ppd; quit in 2000 Hyperlipidemia Hyperlipidemia (Chronic 04/15/13) Hypertension Leukocytosis (Inactive) Low back pain (Chronic 03/04/06) L 2-3 disc narrowing. L hip-mild acetabular spurring 2014 - severe arthritis at facet joints Lumbago Nausea and vomiting (Inactive) Oral ulcer (Resolved) 12/07/16 Peripheral edema (Chronic 07/31/16) Peripheral venous insufficiency (Chronic 12/03/08) edema Pneumonia of right lower lobe due to infectious organism (Resolved) Polyp of colon (Resolved) colonoscopy of 01/09/11-multiple polyps at multiple locations. 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 Very hard to regulate and cannot afford alternatives. Understands the risks. Repeat again - PE. back on anticoagualtion Seizure (Resolved) ? 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 NEG ECHO 2000 Urinary incontinence (Chronic 11/10/14) Vaginal lesion (Resolved) 03/22/16 Venous insufficiency Visual disturbance (Resolved) etiology unclear per -exam of 03/14/11 Vitamin D deficiency Vitamin D deficiency (Chronic 03/11/09) Vulvovaginitis (Resolved) Surgical History Extraction of cataract 02/24/14; LEFT EYE 03/10/14; RIGHT EYE History of bilateral tubal ligation (Resolved) History of laryngectomy (Acute) Ligation of fallopian tube Status post gastrostomy (Acute) Status post tracheostomy (Acute) Family History Mother , 85 Vaginal cancer Father , 74 Heart disease COPD (chronic obstructive pulmonary disease) Sister , 63 Heart disease ASHD/CHF Lung cancer Maternal Grandmother Heart disease Paternal Grandmother Diabetes Son , 40 Substance abuse Heart disease Sister No problems noted. Sister No problems noted. Son RA (rheumatoid arthritis) Daughter No problems noted. Daughter No problems noted. Paternal Grandfather , 80 No problems noted. Social History Smoking/Tobacco Use Status: Former Tobacco Use Quit Date: 06/05/01 Second Hand Exposure: Yes Alcohol Intake: former Drug use: Never Substance use type: does not use Caregiver/Support person: No Household members: none Housing: house Do you need help understanding health information?: Rarely Pets and animals: No Sexually active: No Current gender identity: female What is your relationship status?: How often do you talk on the phone with friends or family?: decline to answer How often do you get together with friends or relatives?: once per week How often do you attend protestant or anabaptist services?: decline to answer Do you belong to any clubs or organized social groups?: no Panel score (0-1 are the most socially isolated patients): 0 What type of physical activity do you participate in: decline to answer Duration: decline to answer Frequency: decline to answer Bethany/Scientologist: Faith Special bethany needs: No Seatbelt use: always Helmet use: No Drive intox or ride w/intox pick up and delivery driver: No Do you feel safe at home: Yes Do you feel safe in your relationship?: Yes Exam Narrative Exam Narrative: Elderly female lying in her hospital bed in semi-harrington position. Patient is alert and seems to answer yes and no appropriately to my questions. She is able to communicate by writing her responses on a white board. She is complaining of abdominal pain particularly after movement. She has no nausea. Lungs are clear to auscultation anteriorly posteriorly she has bibasilar rales. Heart is regular rate and rhythm no appreciable murmur rub or gallop. Abdomen soft no active bowel sounds bandages in place over her laparotomy site Extremities without peripheral cyanosis or edema. She has normal range of motion of her upper extremities Results Last Vital Signs Temp 35.8 C L 05/18/20 15:45 Pulse 65 05/18/20 17:31 Resp 13 05/18/20 17:31 BP 121/55 L 05/18/20 17:31 Pulse Ox 95 05/18/20 17:31 Labs Result diagrams: 05/18/20 06:30 05/18/20 19:05 Labs: Laboratory Results - last 24 hr 05/18/20 05/18/20 06:30 06:30 WBC 11.28 H D RBC 3.39 L Hgb 9.9 L Hct 31.6 L MCV 93.2 MCH 29.2 MCHC 31.3 L RDW 15.1 H Plt Count 305 MPV 9.5 Sodium 139 Potassium 2.7 L* Chloride 102 Carbon Dioxide 26.7 Anion Gap 10.3 BUN 10 D Creatinine 0.80 Estimated GFR/1.73 m2 >= 60.00 Glucose 92 Calcium 8.3 L Total Bilirubin 0.3 AST 19 ALT 9 L Alkaline Phosphatase 75 Total Protein 5.9 L Albumin 2.0 L
[2020-05-18 19:27] LABS: Magnesium 1.7 mg/dL (1.8-2.4)
[2020-05-18] MEDS: MAGNESIUM SULFATE 2 GM/50 ML BAG IVPB (20:41)
[2020-05-19] VITALS (43 sets, daily range): BP systolic 83–128; BP diastolic 35–61; PULSE 75–107; RESP 12–32; TEMP 34–36.6; O2SAT 90–96
[2020-05-19] MEDS: CIPROFLOXACIN 400 MG/200 ML BAG 200 MG IVPB (00:18)
[2020-05-19] MEDS: Insulin Aspart 300 UNITS/3 ML PEN SC ×3 (00:20→12:19)
[2020-05-19] MEDS: Lactated Ringers 1,000 ML 45 ML IV (00:25)
[2020-05-19] MEDS: POTASSIUM CHLORIDE 20 MEQ/100 ML BAG 50 MEQ IVPB (00:55)
--- NOTE | 2020-05-19 07:19 | PGE_ITS ---
Date of Service Date of service: 05/19/20 Time of Service: 07:19 Assessment and Plan Assessment and plan (1) S/P small bowel resection: Status: Acute Assessment and plan: Doing well POD 1 Continue gastrostomy to wall suction until bowel activity resumes. Okay to have ice chips. Continue TPN Will DC antibiotics since they were empirically ordered Resume Eliquis Resume Lasix PT consult today Subjective Subjective Interval history since last seen: Feels better today. Pain controlled No flatus or BM yet Feels slightly SOB, difficult to cough. Does not think it is related to the trach. Exam Narrative Exam Narrative: Alert, comfortable Abdomen soft. Dressing intact. Objective Objective Clinical Data: Abnormal lab results 05/18/20 05/18/20 Range/Units 06:30 19:05 Potassium 2.7 L* 3.0 L (3.5-5.1) mmol/L Calcium 8.3 L (8.5-10.1) mg/dL Magnesium 1.7 L (1.8-2.4) mg/dL ALT 9 L (14-59) U/L Total Protein 5.9 L (6.4-8.2) g/dL Albumin 2.0 L (3.4-5.0) g/dL Vital Signs Temperature 97.7 F 05/19/20 03:00 Temperature Source Temporal Artery Scan 05/19/20 03:00 Pulse 94 H 05/19/20 06:01 Pulse Rhythm Regular 05/18/20 10:26 Pulse 96 H 05/19/20 06:01 Respiratory Rate 18 05/19/20 06:01 Respiratory Effort 05/19/20 03:00 Respiratory Depth Normal 05/19/20 03:00 Respiratory Pattern Normal 05/19/20 03:00 Blood Pressure 117/48 L 05/19/20 06:01 Blood Pressure Mean 66 05/19/20 06:01 Blood Pressure Position Sitting 05/19/20 03:00 Pulse Oximetry 95 05/19/20 03:01 Oxygen Delivery Method Hi Flow Nasal Cannula 05/19/20 03:00 Oxygen Flow Rate 30 05/19/20 03:00 Fraction of Inspired Oxygen (FIO2) 21 05/19/20 03:00 Pain Level 4 05/19/20 03:00 Comment 05/18/20 08:00 Intake & Output 05/18/20 05/18/20 05/19/20 11:59 23:59 11:59 Intake Total 2160 / 3429.584 1269.584 / 3429.584 450 / 450 Output Total 1024 950 / 1974 600 / 600 Balance 1135 / 1454.584 319.584 / 1454.584 -150 / -150 Weight 169 lb 12.095 oz Intake: IV 2160 / 3429.584 1269.584 / 3429.584 450 / 450 Output: Gastric Drainage 900 / 1300 400 / 1300 0 / 0 Lt Upper Quadrant 900 / 1300 400 / 1300 0 / 0 Urine 125 / 625 500 / 625 600 / 600 Estimated Blood Loss 50 / 50 Other: Urine Color Yellow Pale Pale Yellow Urine Appearance Clear Clear Urine Odor Strong Comment large incontinence curry curry Voiding Methods Bedside Commode Laboratory Results WBC 11.28 k/cumm (4.4-10.8) H D 05/18/20 06:30 RBC 3.39 m/cumm (4.00-5.20) L 05/18/20 06:30 Hgb 9.9 g/dL (12.0-15.5) L 05/18/20 06:30 Hct 31.6 % (36.0-46.0) L 05/18/20 06:30 MCV 93.2 fL (80-95) 05/18/20 06:30 MCH 29.2 pg (27.0-33.0) 05/18/20 06:30 MCHC 31.3 g/dL (32.0-36.0) L 05/18/20 06:30 RDW 15.1 % (11.7-14.6) H 05/18/20 06:30 Plt Count 305 x1000/uL (130-400) 05/18/20 06:30 MPV 9.5 fL (8.0-11.0) 05/18/20 06:30 Immature Gran % 0.5 % 05/17/20 06:40 Neutrophils % 82.2 05/17/20 06:40 Lymphocytes % 10.1 05/17/20 06:40 Monocytes % 6.6 05/17/20 06:40 Eosinophils % 0.5 05/17/20 06:40 Basophils % 0.1 05/17/20 06:40 Absolute Neutrophils 13.39 k/cumm (1.2-6.7) H 05/17/20 06:40 Absolute Lymphocytes 1.65 k/cumm (1.2-3.4) 05/17/20 06:40 Absolute Monocytes 1.08 k/cumm (0.11-0.7) H 05/17/20 06:40 Absolute Eosinophils 0.08 k/cumm (0.0-0.7) 05/17/20 06:40 Absolute Basophils 0.02 k/cumm (0.0-0.2) 05/17/20 06:40 Differential Comment Rbc morph reviewed 05/16/20 07:06 RBC Morphology See below 05/16/20 07:06 Polychromasia Present 05/16/20 07:06 Hypochromasia 1+ 05/16/20 07:06 Anisocytosis 1+ 05/16/20 07:06 Sodium 139 mmol/L (136-145) 05/18/20 06:30 Potassium 3.0 mmol/L (3.5-5.1) L 05/18/20 19:05 Chloride 102 mmol/L (98-107) 05/18/20 06:30 Carbon Dioxide 26.7 mmol/L (21.0-32.0) 05/18/20 06:30 Anion Gap 10.3 mmol/L (3-11) 05/18/20 06:30 BUN 10 mg/dL (7-18) D 05/18/20 06:30 Creatinine 0.80 mg/dL (0.55-1.02) 05/18/20 06:30 Estimated GFR/1.73 m2 >= 60.00 (mL/min/1.73m2) 05/18/20 06:30 Glucose 92 mg/dL (74-106) 05/18/20 06:30 Calcium 8.3 mg/dL (8.5-10.1) L 05/18/20 06:30 Magnesium 1.7 mg/dL (1.8-2.4) L 05/18/20 19:05 Total Bilirubin 0.3 mg/dL (0.2-1.0) 05/18/20 06:30 AST 19 U/L (15-37) 05/18/20 06:30 ALT 9 U/L (14-59) L 05/18/20 06:30 Alkaline Phosphatase 75 U/L (46-116) 05/18/20 06:30 Troponin I < 0.05 ng/mL (<0.06) 05/14/20 19:15 Total Protein 5.9 g/dL (6.4-8.2) L 05/18/20 06:30 Albumin 2.0 g/dL (3.4-5.0) L 05/18/20 06:30 COVID-19 PCR Negative (Negative) 05/14/20 17:30 Nasopharyn COVID-19 PCR Not Applicable 05/14/20 17:30 Ref Test Perform Site [place] [facility] lab 05/14/20 17:30
[2020-05-19 07:50] LABS: HCT 33.3 % (36.0-46.0); HGB 10.5 g/dL (12.0-15.5); Mean Corp. HGB Concentration 31.5 g/dL (32.0-36.0); Platelet Count 328 x1000/uL (130-400); RBC 3.62 m/cumm (4.00-5.20); RBC Distribution Width 14.8 % (11.7-14.6); White Blood Cell Count 16.32 k/cumm (4.4-10.8)
[2020-05-19 08:06] LABS: Anion Gap 5.8 mmol/L (3-11); BUN 17 mg/dL (7-18); CO2 26.2 mmol/L (21.0-32.0); CREATININE 0.79 mg/dL (0.55-1.02); Calcium 7.9 mg/dL (8.5-10.1); Chloride 104 mmol/L (98-107); Glucose 170 mg/dL (74-106); Magnesium 2.3 mg/dL (1.8-2.4); PHOSPHORUS 2.4 mg/dL (2.6-4.7); Potassium 3.5 mmol/L (3.5-5.1); Sodium 136 mmol/L (136-145)
[2020-05-19] MEDS: Normal Saline Flush 10 ML SYR IVP ×3 (08:49→18:43)
[2020-05-19] MEDS: Docusate Sodium 100 MG/10 ML CUP PO ×2 (09:02→20:24)
[2020-05-19] MEDS: Furosemide 40 MG TAB PO (09:02)
[2020-05-19] MEDS: Metoprolol CR 25 MG TABCR 12.5 MG PO ×2 (09:02→20:25)
[2020-05-19] MEDS: Apixaban 5 MG TAB PO ×2 (09:03→20:25)
--- NOTE | 2020-05-19 10:46 | W.PM.PROGNOT ---
Date of Service Date of service: 05/19/20 Time of Service: 10:46 Assessment and Plan Assessment and plan (1) Partial obstruction of small intestine: Status: Acute Assessment and plan: Full postop day #1 status post laparotomy with partial small bowel resection secondary to ischemic bowel. Patient now on TPN until recovery of her bowel function. Further management per surgical services. (2) Hypokalemia: Status: Resolved Assessment and plan: Repeat potassium is back to normal at the low end of normal at 3.5. Magnesium levels within normal limits at 2.2. Further supplementation will be given through her TPN with routine laboratory monitoring. TPN is being managed by surgical service. (3) COPD (chronic obstructive pulmonary disease): Status: Chronic Assessment and plan: Continue DuoNeb treatments on a as needed basis. Recommend early mobilization of the patient to prevent atelectasis and postoperative pneumonia Qualifiers: COPD type: unspecified COPD Qualified Code(s): J44.9 - Chronic obstructive pulmonary disease, unspecified (4) History of CVA (cerebrovascular accident): Status: Acute Assessment and plan: Patient is now back on her apixaban. She is also back on her Toprol-XL. Subjective Subjective Interval history since last seen: patient has no complaints. no dyspnea nor any chest pain. Abdominal pain is improved. some flatus but no BM yet. TPN started by surgery and patient has resumed her apixaban and toprol xl. At present time, she just needs time for recovery of her bowel function and needs good pulmonary toiletry/humidified oxygen and her usual tracheostomy care and early mobilization/ambulation. I have no further recommendations at this point. I am going to sign off case but will be available should any acute medical issues arise. Exam Narrative Exam Narrative: Elderly female sitting up in her chair sleeping but easily aroused. She answers questions appropriately with yes and no. She had no further questions. Lungs are clear to auscultation. Heart regular rate and rhythm. Abdomen has a bandage over the wound. She has active bowel sounds. Objective Objective Clinical Data: Abnormal lab results 05/18/20 05/18/20 05/19/20 Range/Units 06:30 19:05 06:46 WBC (4.4-10.8) k/cumm RBC (4.00-5.20) m/cumm Hgb (12.0-15.5) g/dL Hct (36.0-46.0) % MCHC (32.0-36.0) g/dL RDW (11.7-14.6) % Potassium 2.7 L* 3.0 L (3.5-5.1) mmol/L Glucose 170 H D (74-106) mg/dL Calcium 8.3 L 7.9 L (8.5-10.1) mg/dL Phosphorus 2.4 L (2.6-4.7) mg/dL Magnesium 1.7 L (1.8-2.4) mg/dL ALT 9 L (14-59) U/L Total Protein 5.9 L (6.4-8.2) g/dL Albumin 2.0 L (3.4-5.0) g/dL 05/19/20 Range/Units 06:46 WBC 16.32 H D (4.4-10.8) k/cumm RBC 3.62 L (4.00-5.20) m/cumm Hgb 10.5 L (12.0-15.5) g/dL Hct 33.3 L (36.0-46.0) % MCHC 31.5 L (32.0-36.0) g/dL RDW 14.8 H (11.7-14.6) % Potassium (3.5-5.1) mmol/L Glucose (74-106) mg/dL Calcium (8.5-10.1) mg/dL Phosphorus (2.6-4.7) mg/dL Magnesium (1.8-2.4) mg/dL ALT (14-59) U/L Total Protein (6.4-8.2) g/dL Albumin (3.4-5.0) g/dL Vital Signs Temperature 36.1 C L 05/19/20 09:05 Temperature Source Tympanic 05/19/20 09:05 Pulse 97 H 05/19/20 10:01 Pulse Rhythm Regular 05/18/20 10:26 Pulse 98 H 05/19/20 10:01 Respiratory Rate 13 05/19/20 10:01 Respiratory Effort 05/19/20 03:00 Respiratory Depth Normal 05/19/20 03:00 Respiratory Pattern Normal 05/19/20 03:00 Blood Pressure 104/57 L 05/19/20 10:01 Blood Pressure Mean 66 05/19/20 10:01 Blood Pressure Position Sitting 05/19/20 03:00 Pulse Oximetry 93 L 05/19/20 09:26 Oxygen Delivery Method Hi Flow Nasal Cannula 05/19/20 09:05 Oxygen Flow Rate 30 05/19/20 08:59 Fraction of Inspired Oxygen (FIO2) 21 05/19/20 08:59 Pain Level 4 05/19/20 03:00 Comment 05/18/20 08:00 Intake & Output 05/18/20 05/18/20 05/19/20 11:59 23:59 11:59 Intake Total 2160 / 3429.584 1269.584 / 3429.584 1814 / 1814 Output Total 1025 / 1975 950 / 1975 950 / 950 Balance 1135 / 1454.584 319.584 / 1454.584 864 / 864 Weight 77 kg 80.8 kg Intake: IV 2160 / 3429.584 1269.584 / 3429.584 1814 / 1814 Output: Gastric Drainage 900 / 1300 400 / 1300 0 / 0 Lt Upper Quadrant 900 / 1300 400 / 1300 0 / 0 Urine 125 / 625 500 / 625 950 / 950 Estimated Blood Loss 50 / 50 Other: Urine Color Yellow Pale Yellow Urine Appearance Clear Clear Urine Odor Strong Comment large incontinence curry curry Voiding Methods Bedside Commode Laboratory Results WBC 16.32 k/cumm (4.4-10.8) H D 05/19/20 06:46 RBC 3.62 m/cumm (4.00-5.20) L 05/19/20 06:46 Hgb 10.5 g/dL (12.0-15.5) L 05/19/20 06:46 Hct 33.3 % (36.0-46.0) L 05/19/20 06:46 MCV 92.0 fL (80-95) 05/19/20 06:46 MCH 29.0 pg (27.0-33.0) 05/19/20 06:46 MCHC 31.5 g/dL (32.0-36.0) L 05/19/20 06:46 RDW 14.8 % (11.7-14.6) H 05/19/20 06:46 Plt Count 328 x1000/uL (130-400) 05/19/20 06:46 MPV 10.0 fL (8.0-11.0) 05/19/20 06:46 Immature Gran % 0.5 % 05/17/20 06:40 Neutrophils % 82.2 05/17/20 06:40 Lymphocytes % 10.1 05/17/20 06:40 Monocytes % 6.6 05/17/20 06:40 Eosinophils % 0.5 05/17/20 06:40 Basophils % 0.1 05/17/20 06:40 Absolute Neutrophils 13.39 k/cumm (1.2-6.7) H 05/17/20 06:40 Absolute Lymphocytes 1.65 k/cumm (1.2-3.4) 05/17/20 06:40 Absolute Monocytes 1.08 k/cumm (0.11-0.7) H 05/17/20 06:40 Absolute Eosinophils 0.08 k/cumm (0.0-0.7) 05/17/20 06:40 Absolute Basophils 0.02 k/cumm (0.0-0.2) 05/17/20 06:40 Differential Comment Rbc morph reviewed 05/16/20 07:06 RBC Morphology See below 05/16/20 07:06 Polychromasia Present 05/16/20 07:06 Hypochromasia 1+ 05/16/20 07:06 Anisocytosis 1+ 05/16/20 07:06 Sodium 136 mmol/L (136-145) 05/19/20 06:46 Potassium 3.5 mmol/L (3.5-5.1) 05/19/20 06:46 Chloride 104 mmol/L (98-107) 05/19/20 06:46 Carbon Dioxide 26.2 mmol/L (21.0-32.0) 05/19/20 06:46 Anion Gap 5.8 mmol/L (3-11) 05/19/20 06:46 BUN 17 mg/dL (7-18) D 05/19/20 06:46 Creatinine 0.79 mg/dL (0.55-1.02) 05/19/20 06:46 Estimated GFR/1.73 m2 >= 60.00 (mL/min/1.73m2) 05/19/20 06:46 Glucose 170 mg/dL (74-106) H D 05/19/20 06:46 Calcium 7.9 mg/dL (8.5-10.1) L 05/19/20 06:46 Phosphorus 2.4 mg/dL (2.6-4.7) L 05/19/20 06:46 Magnesium 2.3 mg/dL (1.8-2.4) 05/19/20 06:46 Total Bilirubin 0.3 mg/dL (0.2-1.0) 05/18/20 06:30 AST 19 U/L (15-37) 05/18/20 06:30 ALT 9 U/L (14-59) L 05/18/20 06:30 Alkaline Phosphatase 75 U/L (46-116) 05/18/20 06:30 Troponin I < 0.05 ng/mL (<0.06) 05/14/20 19:15 Total Protein 5.9 g/dL (6.4-8.2) L 05/18/20 06:30 Albumin 2.0 g/dL (3.4-5.0) L 05/18/20 06:30 COVID-19 PCR Negative (Negative) 05/14/20 17:30 Nasopharyn COVID-19 PCR Not Applicable 05/14/20 17:30 Ref Test Perform Site [place] [facility] lab 05/14/20 17:30
--- NOTE | 2020-05-19 12:55 | PT.INIE ---
Date of service: 05/19/20 Time of Service: 12:55 PT Notes Visit Reasons: SMALL BOWEL OBSTRUCTION Physical Therapy Inpatient Initial Evaluation Date: 05/19/2020 Referring Doctor: Haydee Morrow MD PT Orders: PT CONSULT: Eval/treat Precautions: Fall. Standard. Activity as tolerated. Patient Profile/Admitting Diagnosis: Patient is an 80-year-old female with a past medical history history of pulmonary embolism, squamous cell carcinoma, vocal cord carcinoma, and s/p radiation, s/p laryngectomy and thyroidectomy, and tracheostomy placement. She presented to the ED on 05/14/2020 with chief presentation of vomiting and abdominal pain. Patient was diagnosed with partial obstruction of small intestine and is status post laparoscopy and small bowel resection on postoperative day 1. PMHX: Medical History Adynamic ileus (Resolved) Benign paroxysmal vertigo Benign paroxysmal vertigo, unspecified ear (Resolved) Cataract (Resolved) O.U 02/24/14; Dr. Martin left extraction 03/10/14; Dr. Martin right extraction Cellulitis (Resolved) 07/31/16 both lower extremity Cerebral arteriovenous malformation (Chronic) Cerebral vascular malformation Cerebrovascular accident (CVA) (Chronic 01/20/16) seen on previous CT Scans 2016 Decreased muscle tone (Chronic) ANAL SPINCTER Deficient knowledge of tracheostomy home care (Inactive) Depression Depressive disorder (Chronic) DVT prophylaxis (Inactive) Dysphagia (Inactive 01/01/18) Essential hypertension (Chronic 10/31/13) Hip pain (Chronic) bilateral 2014 - mild arthritis right History of tobacco use (Resolved) 2 ppd; quit in 2000 Hyperlipidemia Hyperlipidemia (Chronic 04/15/13) Hypertension Leukocytosis (Inactive) Low back pain (Chronic 03/04/06) L 2-3 disc narrowing. L hip-mild acetabular spurring 2015 - severe arthritis at facet joints Lumbago Nausea and vomiting (Inactive) Oral ulcer (Resolved) 12/07/16 Peripheral edema (Chronic 07/31/16) Peripheral venous insufficiency (Chronic 12/03/08) edema Pneumonia of right lower lobe due to infectious organism (Resolved) Polyp of colon (Resolved) colonoscopy of 01/09/11-multiple polyps at multiple locations. 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 Very hard to regulate and cannot afford alternatives. Understands the risks. Repeat again - PE. back on anticoagualtion Seizure (Resolved) ? 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 NEG ECHO 2000 Urinary incontinence (Chronic 11/10/14) Vaginal lesion (Resolved) 03/22/16 Venous insufficiency Visual disturbance (Resolved) etiology unclear per -exam of 03/14/11 Vitamin D deficiency Vitamin D deficiency (Chronic 03/11/09) Vulvovaginitis (Resolved) Surgical History Extraction of cataract 02/24/14; LEFT EYE 03/10/14; RIGHT EYE History of bilateral tubal ligation (Resolved) Ligation of fallopian tube Social History/Home Situation: Lisa has 24/7 caregivers who provide all the assistance that she needs. She requires supervision for all mobility ADL performance using the 4 wheeled walker. Equipment Owned/DME: four-wheeled walker Subjective: Patient indicates that prior to the surgery she was walking good at home using her front wheeled walker and that she has 24/7 caregivers who help she needs. She complains of balance which significant soreness in her abdominal area and was leary about participating with mobility assessment today. Objective: General Observation: O2 on 2 L/min via tracheostomy tube on 30 L with 26% oxygen with humidification. Telemetry monitoring in place. Edwards catheter in place. Wound dressing over surgical incision. BUE swelling with the right more affected than the left. Mental Status: Patient is non-verbal. She is able to mouth some words, but often requires white board/paper and pen to write. Pain: Reported significant pain with leaning forward while trying to attempt standing up from Vital Signs: O2 saturation level was 87% despite oxygen supplementation during session ROM: Right Upper Extremity: Shoulder Flexion allows up to 90 degrees. Shoulder abduction allows up to 90 degrees. Elbow flexion WFL. Wrist flexion WFL. Opening and closing of hand WFL. Left Upper Extremity: Shoulder Flexion allows up to 90 degrees. Shoulder abduction allows up to 90 degrees. Elbow flexion WFL. Wrist flexion WFL. Opening and closing of hand WFL. Right Lower Extremity: Hip flexion WFL. Hip abduction WFL. Knee flexion WFL. Ankle dorsiflexion WFL. Ankle plantarflexion WFL. Left Lower Extremity: Hip flexion WFL. Hip abduction WFL. Knee flexion WFL. Ankle dorsiflexion WFL. Ankle plantarflexion WFL. Strength: Right Upper Extremity: Shoulder flexors 3-/5. Shoulder abductors 3+/5. Elbow flexors 4-/5. Elbow extensors 4-5. Authorization Representative strong. Left Upper Extremity: Shoulder flexors 3-/5. Shoulder abductors 3+/5. Elbow flexors 4-/5. Elbow extensors 4-/5. Authorization Representative strong. Right Lower Extremity: Hip flexors 3+/5. Hip abductors 4-/5. Knee flexors 4-/5. Knee extensors 4-/5. Ankle dorsiflexors 4-/5. Ankle plantarflexors 4-/5. Left Lower Extremity: Hip flexors 3+/5. Hip abductors 4-/5. Knee flexors 4-/5. Knee extensors 4-/5. Ankle dorsiflexors 4-/5. Ankle plantarflexors 4-/5. Sensation: Intact as to pain and pressure on bilateral lower extremities. Bed Mobility/Transfers: Sit to supine: Moderate assist of 2 Sit to stand moderate assist of 2 Stand to sit moderate assist of 2 Bed to chair moderate assist of 2 Chair to bed moderate assist of 2 Gait: 4 feet +4 sidesteps +2 sidesteps using front wheeled walker with full weight-bearing requiring minimal assist of 2. Decreased abdiaziz. Forward head posture. Thoracic kyphosis. Was considerably tired after short ambulation activity. Nurse Silvia sent during activity. Balance: Static Sitting: Good Dynamic Sitting: Fair Static Standing: Poor Dynamic Standing: Poor Special Tests: Mobility Limitations Standardized Measure [facility] AM-PAC 6 clicks Basic Mobility Inpatient Short Form: Raw Score: 16 CMS Score: 55% deficit Informed Consent/Education: Patient instructed in purpose of PT consult and plan of care. Assessment: Lisa demonstrates significant functional mobility decline requiring the use of front wheeled walker and assistance of 2 people for safety, unsteadiness on feet, impaired balance, generalized muscle weakness, decreased activity tolerance, and increased fall risk due to postoperative status and comorbid conditions. Patient is an 80-year-old female with a past medical history history of pulmonary embolism, squamous cell carcinoma, vocal cord carcinoma, and s/p radiation, s/p laryngectomy and thyroidectomy, and tracheostomy placement. She presented to the ER on 05/14/2020 with chief presentation of vomiting and abdominal pain. Patient was diagnosed with partial obstruction of small intestine and and status post diagnostic laparoscopy and small bowel resection on postoperative day 1. Patient presents with clinical signs and symptoms consistent with current/admitting diagnoses that have resulted to mobility limitations, gait instability, and generalized weakness as demonstrated by the following impairment level findings: 1. Decreased strength to B UE/LE major muscle groups 2. Impaired standing balance 3. Impaired activity tolerance 4. Impaired respiratory function Impairments are contributing to the following functional limitations: 1. Dependent bed mobility skills 2. Increased dependence with transfers 3. Inability to safely ambulate without assistive device and physical assistance 4. Increase completion time for mobility ADL performance 5. Increased fall risk Patient is assessed as a 59495 moderate complexity based on the following: History: Lisa is a an 80-year-old female with impairment level findings, functional limitations, and past medical history as listed above Examination: Demonstrable impairment in strength, and balance with underlying impairments and functional limitations as documented above Presentation: Evolving Decision Makin moderate complexity Goals: Goals X1 week 1. Supine-Sit supervision 2. Sit-Supine supervision 3. Sit-Stand i supervision 4. Stand-Sit supervision 5. Bed-Chair supervision 6. Chair-Bed supervision 7. Standby assist gait on level surface with use of least restrictive device for at least 300 feet without report of pain nor dyspnea 9. Standby assist with home exercise program 10. Good static and dynamic standing balance/tolerance Plan of Care/Treatment Plan: 1-2x/day, 7 days/week x 1 week. Plan of care has been reviewed with the SLASHER SAWYER providing the service under Physical Therapy direction. Initiate Physical Therapy intervention for strengthening, bed mobility, transfers, gait, stairs, balance training, use of assistive device. DISCHARGE RECOMMENDATIONS: Return to home with 28/05 care. Patient will benefit from home health PT services in order to progress mobility level using least restrictive assistive ambulatory device, assess home safety, identify additional equipment needs, and establish a functional maintenance program that will increase ability of patient to remain at home. TREATMENT CODE/TIME: 15360 x 25 minutes, 04671 x 14 minutes beginning at 12:55 P.M. Thank you for the opportunity to participate in the care of this patient. Valeria Reyes PT, DPT, CLT [facility] [place], [place]
--- NOTE | 2020-05-19 16:32 | CMPROGNOTE_ITS ---
- If Service Date Differs Date of service: 05/19/20 Time of Service: 16:32 Care Management Progress Note S/O: Lisa was sitting up in her chair when CM met with her. She reported that she was feeling better after surgery. CM talked to Trini to give her an update, who was very appreciative of our time. CM will continue to follow. A: Lisa is an 80 year old woman admitted on 05/14/20 with a partial SBO P: Lisa will be discharged home when medically ready per provider. She will have OR procedure today to attempt to relieve the SBO. 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 CM will continue to follow and assess for ongoing discharge needs.
[2020-05-19] MEDS: Pantoprazole 40 MG VIAL IVP (18:43)
[2020-05-20] VITALS (42 sets, daily range): BP systolic 88–129; BP diastolic 33–82; PULSE 70–95; RESP 12–30; TEMP 34–36.8; O2SAT 91–99
[2020-05-20] MEDS: Insulin Aspart 300 UNITS/3 ML PEN SC ×2 (06:09→11:47)
[2020-05-20] MEDS: Normal Saline Flush 10 ML SYR IVP ×3 (07:22→18:52)
[2020-05-20 08:21] LABS: Abs Immature Grans 0.37 k/cumm (0.0-0.09); Absolute Basophil Count 0.03 k/cumm (0.0-0.2); Absolute Monocyte Count 1.56 k/cumm (0.11-0.7); Basophils % 0.2; Eosinophils % 2.2; HCT 31.2 % (36.0-46.0); HGB 9.8 g/dL (12.0-15.5); Immature Grans % 2.7 %; Lymphocytes % 13.5; Mean Corp. HGB Concentration 31.4 g/dL (32.0-36.0); Mean Corpuscular Hemoglobin 29.1 pg (27.0-33.0); Mean Corpuscular Volume 92.6 fL (80-95); Mean Platelet Volume 9.3 fL (8.0-11.0); Monocytes % 11.5; Neutrophils % 69.9; Platelet Count 310 x1000/uL (130-400); RBC 3.37 m/cumm (4.00-5.20); White Blood Cell Count 13.59 k/cumm (4.4-10.8)
[2020-05-20 08:24] LABS: Absolute Lymphocyte Count 1.83 k/cumm (1.2-3.4)
[2020-05-20 08:30] LABS: Anion Gap 5.3 mmol/L (3-11); BUN 21 mg/dL (7-18); CO2 26.7 mmol/L (21.0-32.0); CREATININE 0.77 mg/dL (0.55-1.02); Chloride 102 mmol/L (98-107); Glucose 130 mg/dL (74-106); Potassium 3.5 mmol/L (3.5-5.1); Sodium 134 mmol/L (136-145)
[2020-05-20 08:42] LABS: Diff Comment Agrees w/ Instrument; Polychromasia Present
[2020-05-20] MEDS: Lactated Ringers 1,000 ML 40 ML IV (08:55)
[2020-05-20] MEDS: Furosemide 40 MG TAB PO (09:10)
[2020-05-20] MEDS: Apixaban 5 MG TAB PO ×2 (09:11→21:14)
[2020-05-20] MEDS: Docusate Sodium 100 MG/10 ML CUP PO ×2 (09:11→21:15)
[2020-05-20] MEDS: Metoprolol CR 25 MG TABCR 12.5 MG PO (09:11)
[2020-05-20 09:50] LABS: Magnesium 2.1 mg/dL (1.8-2.4)
[2020-05-20] MEDS: IRON SUCROSE COMPLEX 200 MG in Normal Saline 100 ML 400 MG IVPB (12:47)
[2020-05-20] MEDS: ACETAMINOPHEN 1,000 MG/100 ML BTL 400 MG IVPB (13:22)
--- NOTE | 2020-05-20 15:31 | PT.INTREAT ---
Date of service: 05/20/20 Time of Service: 15:31 PT Notes Visit Reasons: SMALL BOWEL OBSTRUCTION Inpatient Physical Therapy Treatment Note [facility] Date: 05/20/2020 SUBJECTIVE: Lisa states that she is hurting a littlemore today than yesterday. OBJECTIVE: [] BED MOBILITY/TRANSFERS Supine-sit: max A x2 Sit-supine: max A x2 Sit-stand: max Ax2 Stand-sit: min A x2 GAIT Assistive Device: FWW Weight bearing: FWB Assist: min Ax2 Distance: approx 4-5 steps THEREX: global LE strength and stabilization, see flowsheet for details. ASSESSMENT: tolerated session well. Increased pain with transfers sit to stand to sit, as well as supine to sit and sit to supine. She is quite steady once she is on her feet. PLAN: continue to progress per PT POC TREATMENT CODE/TIME: 30 min in am and 20 min in pm. [id number], [id number].
--- NOTE | 2020-05-20 15:36 | PT.INTREAT ---
Date of service: 05/20/20 Time of Service: 15:36 PT Notes Visit Reasons: SMALL BOWEL OBSTRUCTION
--- NOTE | 2020-05-20 16:21 | CMPROGNOTE_ITS ---
- If Service Date Differs Date of service: 05/20/20 Time of Service: 16:21 Care Management Progress Note S/O: Lisa was sitting up in her chair when CM met with her. She reported that she was feeling ok. CM discussed possible discharge options, including SNF if she is still having trouble moving around when she becomes discharge ready. Per RN, she was a two assist going from her bed to her chair. Per report, she has been having difficulty with pain control today. CM will continue to follow. A: Lisa is an 80 year old woman admitted on 05/14/20 with a partial SBO P: Lisa will be discharged home when medically ready per provider. She is post op from a partial bowel resection. 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 CM will continue to follow and assess for ongoing discharge needs.
[2020-05-20] MEDS: Pantoprazole 40 MG VIAL IVP (18:52)
--- NOTE | 2020-05-20 19:24 | PGE_ITS ---
Date of Service Date of service: 05/20/20 Time of Service: 19:24 Assessment and Plan Assessment and plan (1) S/P small bowel resection: Status: Acute Assessment and plan: POD #2 s/p ex lap adn sm bowel resection donig quite well. pain meds adjusted. low BP. no signs of sepsis/bleeding/dehydration. will follow for know. Hold BB if SBP <100 sip/chips. Pt says she can drink water adn take po meds. stop G tube suctinoing. if any N/V or distention- retunr to LIS. cont PT cont TPN pt is back on elliquis- A. fib. s/p CVA. trach care/ pulm toilet. rehab post hosp. no abx DVT: ellquis/ SCD (2) History of CVA (cerebrovascular accident): Status: Acute (3) Squamous cell carcinoma of pyriform sinus: Status: Acute (4) Tracheostomy care: Status: Acute (5) Stenosis of carotid artery: Status: Chronic (6) Peripheral venous insufficiency: Status: Chronic (7) Hyperlipidemia: Status: Chronic Subjective Subjective Interval history since last seen: Pt is doing well. no headaches. No CP or SOB. no productive cough. no dysuria. no leg pain or swelling. She does have a stage II area on coyxx- per RN's. Pt says she is passing some gas. Pt says she can have water adn does not aspirate. Incision is c/d/d. She does have good BS. Pt is quite week. Hard time just standing today. She will defn need rehab post-hospitalization. cont tpn. Bp has been soft this eveining. In the 100-90's. No signs of bl eeding/dehydration/sepsis. She has had good urine oupt. Min output from G tube. no LE edema. Pain meds were adjusted to provide better control. I was my understanding she did not take po meds, however, she is already on some po meds. Exam HENMT Other: trach site is c/d/i. regular suctioning and humidifyed O2. No bleeding Resp Effort & Inspection: normal respiratory effort Auscultation: clear to auscultation bilaterally Cardio Rate: regular rate Rhythm: other (A. fib ) GI Other: incision c/d/i. good BS. no redness/drainage/ swelling. no echymosis. Extrem General: normal to inspection and no clubbing, cyanosis or edema Other: skin tear on sacrum per RN's- I did not visulize. PIC site c/d/i. Objective Objective Clinical Data: Abnormal lab results 05/20/20 05/20/20 Range/Units 07:55 07:55 WBC 13.59 H (4.4-10.8) k/cumm RBC 3.37 L (4.00-5.20) m/cumm Hgb 9.8 L (12.0-15.5) g/dL Hct 31.2 L (36.0-46.0) % MCHC 31.4 L (32.0-36.0) g/dL RDW 15.0 H (11.7-14.6) % Absolute Neutrophils 9.50 H (1.2-6.7) k/cumm Absolute Monocytes 1.56 H (0.11-0.7) k/cumm Sodium 134 L (136-145) mmol/L BUN 21 H (7-18) mg/dL Glucose 130 H (74-106) mg/dL Calcium 8.0 L (8.5-10.1) mg/dL Vital Signs Temperature 36.1 C L 05/20/20 15:30 Temperature Source Temporal Artery Scan 05/20/20 15:30 Pulse 76 05/20/20 17:01 Pulse Rhythm Regular 05/18/20 10:26 Pulse 77 05/20/20 17:01 Respiratory Rate 13 05/20/20 17:01 Respiratory Effort Non-Labored 05/20/20 15:30 Respiratory Depth Normal 05/20/20 15:30 Respiratory Pattern Normal 05/20/20 15:30 Blood Pressure 90/40 L 05/20/20 17:01 Blood Pressure Mean 52 05/20/20 17:01 Blood Pressure Position Supine 05/20/20 15:30 Pulse Oximetry 95 05/20/20 17:01 Oxygen Delivery Method Hi Flow System 05/20/20 15:30 Oxygen Flow Rate 30 05/20/20 15:30 Fraction of Inspired Oxygen (FIO2) 21 05/20/20 15:30 Pain Level 2 05/20/20 15:30 Comment 05/18/20 08:00 Intake & Output 05/19/20 05/20/20 05/20/20 23:59 11:59 23:59 Intake Total 430 / 2244 667 / 1127 460 / 1127 Output Total 575 / 1525 450 / 5 1575 / 2025 Balance -145 / 719 217 / -898 -1115 / -898 Intake: IV 430 / 2244 667 / 1127 460 / 1127 Output: Gastric Drainage 50 / 50 125 / 125 Lt Upper Quadrant 50 / 50 125 / 125 Urine 525 / 1475 450 / 1900 1450 / 1900 Other: Urine Color Yellow Yellow Yellow Urine Appearance Clear Clear Clear Comment curry in place and patent draining clear yellow urine. Curry intact and draining clear yellow urine. Curry intact and draining clear yellow urine. Laboratory Results WBC 13.59 k/cumm (4.4-10.8) H 05/20/20 07:55 RBC 3.37 m/cumm (4.00-5.20) L 05/20/20 07:55 Hgb 9.8 g/dL (12.0-15.5) L 05/20/20 07:55 Hct 31.2 % (36.0-46.0) L 05/20/20 07:55 MCV 92.6 fL (80-95) 05/20/20 07:55 MCH 29.1 pg (27.0-33.0) 05/20/20 07:55 MCHC 31.4 g/dL (32.0-36.0) L 05/20/20 07:55 RDW 15.0 % (11.7-14.6) H 05/20/20 07:55 Plt Count 310 x1000/uL (130-400) 05/20/20 07:55 MPV 9.3 fL (8.0-11.0) 05/20/20 07:55 Immature Gran % 2.7 % 05/20/20 07:55 Neutrophils % 69.9 05/20/20 07:55 Lymphocytes % 13.5 05/20/20 07:55 Monocytes % 11.5 05/20/20 07:55 Eosinophils % 2.2 05/20/20 07:55 Basophils % 0.2 05/20/20 07:55 Absolute Neutrophils 9.50 k/cumm (1.2-6.7) H 05/20/20 07:55 Absolute Lymphocytes 1.83 k/cumm (1.2-3.4) 05/20/20 07:55 Absolute Monocytes 1.56 k/cumm (0.11-0.7) H 05/20/20 07:55 Absolute Eosinophils 0.30 k/cumm (0.0-0.7) 05/20/20 07:55 Absolute Basophils 0.03 k/cumm (0.0-0.2) 05/20/20 07:55 Differential Comment Agrees w/ instrument 05/20/20 07:55 RBC Morphology See below 05/20/20 07:55 Polychromasia Present 05/20/20 07:55 Hypochromasia 1+ 05/16/20 07:06 Anisocytosis 1+ 05/16/20 07:06 Sodium 134 mmol/L (136-145) L 05/20/20 07:55 Potassium 3.5 mmol/L (3.5-5.1) 05/20/20 07:55 Chloride 102 mmol/L (98-107) 05/20/20 07:55 Carbon Dioxide 26.7 mmol/L (21.0-32.0) 05/20/20 07:55 Anion Gap 5.3 mmol/L (3-11) 05/20/20 07:55 BUN 21 mg/dL (7-18) H 05/20/20 07:55 Creatinine 0.77 mg/dL (0.55-1.02) 05/20/20 07:55 Estimated GFR/1.73 m2 >= 60.00 (mL/min/1.73m2) 05/20/20 07:55 Glucose 130 mg/dL (74-106) H 05/20/20 07:55 Calcium 8.0 mg/dL (8.5-10.1) L 05/20/20 07:55 Phosphorus 2.4 mg/dL (2.6-4.7) L 05/19/20 06:46 Magnesium 2.1 mg/dL (1.8-2.4) 05/20/20 07:55 Total Bilirubin 0.3 mg/dL (0.2-1.0) 05/18/20 06:30 AST 19 U/L (15-37) 05/18/20 06:30 ALT 9 U/L (14-59) L 05/18/20 06:30 Alkaline Phosphatase 75 U/L (46-116) 05/18/20 06:30 Troponin I < 0.05 ng/mL (<0.06) 05/14/20 19:15 Total Protein 5.9 g/dL (6.4-8.2) L 05/18/20 06:30 Albumin 2.0 g/dL (3.4-5.0) L 05/18/20 06:30 COVID-19 PCR Negative (Negative) 05/14/20 17:30 Nasopharyn COVID-19 PCR Not Applicable 05/14/20 17:30 Ref Test Perform Site [place] [facility] 05/14/20 17:30
[2020-05-21] VITALS (41 sets, daily range): BP systolic 90–131; BP diastolic 30–99; PULSE 68–91; RESP 6–35; TEMP 34–36.9; O2SAT 89–99
[2020-05-21] MEDS: Insulin Aspart 300 UNITS/3 ML PEN SC ×3 (06:35→23:02)
[2020-05-21] MEDS: ACETAMINOPHEN 1,000 MG/100 ML BTL 400 MG IVPB (06:35)
[2020-05-21 06:59] LABS: Abs Immature Grans 0.28 k/cumm (0.0-0.09); Absolute Basophil Count 0.01 k/cumm (0.0-0.2); Absolute Eosinophil Count 0.28 k/cumm (0.0-0.7); Absolute Monocyte Count 0.92 k/cumm (0.11-0.7); Absolute Neutrophil Count 6.95 k/cumm (1.2-6.7); Basophils % 0.1; Eosinophils % 2.8; HCT 27.9 % (36.0-46.0); HGB 8.9 g/dL (12.0-15.5); Immature Grans % 2.8 %; Lymphocytes % 14.2; Mean Corp. HGB Concentration 31.9 g/dL (32.0-36.0); Mean Corpuscular Hemoglobin 29.6 pg (27.0-33.0); Mean Corpuscular Volume 92.7 fL (80-95); Mean Platelet Volume 9.7 fL (8.0-11.0); Monocytes % 9.3; Neutrophils % 70.8; Platelet Count 267 x1000/uL (130-400); RBC 3.01 m/cumm (4.00-5.20); RBC Distribution Width 14.8 % (11.7-14.6); White Blood Cell Count 9.84 k/cumm (4.4-10.8)
[2020-05-21 07:18] LABS: Iron 138 ug/dL (50-170); Total Iron Binding Capacity 141 ug/dL (250-450); Transferrin Sat 98 % (15-50)
[2020-05-21 07:21] LABS: Anion Gap 5.7 mmol/L (3-11); BUN 21 mg/dL (7-18); CO2 26.3 mmol/L (21.0-32.0); CREATININE 0.79 mg/dL (0.55-1.02); Calcium 7.8 mg/dL (8.5-10.1); Chloride 104 mmol/L (98-107); Glucose 152 mg/dL (74-106); Magnesium 1.9 mg/dL (1.8-2.4); PHOSPHORUS 2.6 mg/dL (2.6-4.7); Potassium 3.3 mmol/L (3.5-5.1); Sodium 136 mmol/L (136-145)
[2020-05-21 07:25] LABS: Diff Comment RBC Morph Reviewed; Hypochromasia 1+; Polychromasia Present
--- NOTE | 2020-05-21 08:58 | PDOC.CMPRO ---
- If Service Date Differs Date of service: 05/21/20 Time of Service: 08:58 Care Management Progress Note S/O: Lisa remains acute she is alert. Daughters are concerned about the amount of pain medication she is receiving. CM reviewed the chart and spoke with nursing. Lisa has been having discomfort r/t to the abdominal surgery. Family is concerned that she wants to give up. Lisa is sleeping up in the chair when CM into see her. Lisa remains on TPN. CM did update daughter Trini who also contacted [facility] with concerns. CM reviewed blood pressure and other vital signs. Family would benefit from a daily update by surgical provider. A: Lisa is an 80 year old woman admitted on 05/14/20 with a partial SBO P: Lisa will be discharged home when medically ready per provider. She is post op from a partial bowel resection. 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 CM will continue to follow and assess for ongoing discharge needs.
[2020-05-21] MEDS: Metoprolol CR 25 MG TABCR 12.5 MG PO ×2 (09:16→20:59)
[2020-05-21] MEDS: Furosemide 40 MG TAB PO (09:16)
--- NOTE | 2020-05-21 10:15 | W.PM.PROGNOT ---
Date of Service Date of service: 05/21/20 Time of Service: 10:16 Assessment and Plan Assessment and plan (1) S/P small bowel resection: Status: Acute Assessment and plan: pod#3 doing well cl liq PT off abx (2) History of CVA (cerebrovascular accident): Status: Acute (3) Squamous cell carcinoma of pyriform sinus: Status: Acute (4) Tracheostomy care: Status: Acute (5) COPD (chronic obstructive pulmonary disease): Status: Chronic Qualifiers: COPD type: unspecified COPD Qualified Code(s): J44.9 - Chronic obstructive pulmonary disease, unspecified (6) Stenosis of carotid artery: Status: Chronic (7) Peripheral venous insufficiency: Status: Chronic (8) Essential hypertension: Status: Chronic Assessment and plan: acutualy hypotensive ? due to morphine (9) Anemia due to blood loss, acute: Status: Acute Assessment and plan: hold elliquis iv iron Subjective Subjective Interval history since last seen: no headaches. No CP or SOB. no productive cough. no dysuria. no leg pain or swelling. Patient got out of bed okay today, but she was max assist with 2 nurses to get her back into bed. Her son says she was walking at home. Her son says she can tolerate clear liquids and takes very small pills. She does not aspirate or choke. She is going to definitely need to go back to rehab and is unsafe to go home by herself. She still having lots of pain issues. And requiring IV morphine for pain SBP still in 90's. no signs of bleeding or dehydration. HR nl. actuallylooks quite good Exam Resp Effort & Inspection: normal respiratory effort Auscultation: clear to auscultation bilaterally GI Inspection: incision (c/d/i) Palpation: soft Auscultation: normal bowel sounds Skin Other: small skin tear in gluteal cleft Objective Objective Clinical Data: Abnormal lab results 05/21/20 05/21/20 05/21/20 Range/Units 06:30 06:30 06:30 RBC 3.01 L (4.00-5.20) m/cumm Hgb 8.9 L (12.0-15.5) g/dL Hct 27.9 L (36.0-46.0) % MCHC 31.9 L (32.0-36.0) g/dL RDW 14.8 H (11.7-14.6) % Absolute Neutrophils 6.95 H (1.2-6.7) k/cumm Absolute Monocytes 0.92 H (0.11-0.7) k/cumm Potassium 3.3 L (3.5-5.1) mmol/L BUN 21 H (7-18) mg/dL Glucose 152 H (74-106) mg/dL Calcium 7.8 L (8.5-10.1) mg/dL TIBC 141 L (250-450) ug/dL Transferrin % Sat 98 H (15-50) % Vital Signs Temperature 36.2 C L 05/21/20 07:56 Temperature Source Temporal Artery Scan 05/21/20 07:56 Pulse 80 05/21/20 07:18 Pulse Rhythm Regular 05/18/20 10:26 Pulse 80 05/21/20 07:18 Respiratory Rate 13 05/21/20 07:18 Respiratory Effort Non-Labored 05/21/20 07:56 Respiratory Depth Normal 05/21/20 07:56 Respiratory Pattern Normal 05/21/20 07:56 Blood Pressure 108/41 L 05/21/20 07:18 Blood Pressure Mean 56 05/21/20 07:18 Blood Pressure Position Supine 05/21/20 07:56 Pulse Oximetry 94 L 05/21/20 07:18 Oxygen Delivery Method Hi Flow System 05/21/20 07:56 Oxygen Flow Rate 30 05/21/20 08:56 Fraction of Inspired Oxygen (FIO2) 21 05/21/20 08:56 Pain Level 5 05/21/20 07:56 Comment 05/18/20 08:00 Intake & Output 05/20/20 05/20/20 05/21/20 11:59 23:59 11:59 Intake Total 1698 / 3208 1510 / 3208 Output Total 450 / 2575 2125 / 2575 1400 / 1400 Balance 1248 / 633 -615 / 633 -1400 / -1400 Intake: IV 1698 / 3178 1480 / 3178 Oral 30 / 30 Output: Gastric Drainage 125 / 125 Lt Upper Quadrant 125 / 125 Urine 450 / 2450 2000 / 2450 1400 / 1400 Other: Urine Color Yellow Yellow Yellow Urine Appearance Clear Clear Clear Comment Edwards intact and draining clear yellow urine. Edwards intact and draining clear yellow urine. Edwards intact and draining clear yellow urine. Laboratory Results WBC 9.84 k/cumm (4.4-10.8) 05/21/20 06:30 RBC 3.01 m/cumm (4.00-5.20) L 05/21/20 06:30 Hgb 8.9 g/dL (12.0-15.5) L 05/21/20 06:30 Hct 27.9 % (36.0-46.0) L 05/21/20 06:30 MCV 92.7 fL (80-95) 05/21/20 06:30 MCH 29.6 pg (27.0-33.0) 05/21/20 06:30 MCHC 31.9 g/dL (32.0-36.0) L 05/21/20 06:30 RDW 14.8 % (11.7-14.6) H 05/21/20 06:30 Plt Count 267 x1000/uL (130-400) 05/21/20 06:30 MPV 9.7 fL (8.0-11.0) 05/21/20 06:30 Immature Gran % 2.8 % 05/21/20 06:30 Neutrophils % 70.8 05/21/20 06:30 Lymphocytes % 14.2 05/21/20 06:30 Monocytes % 9.3 05/21/20 06:30 Eosinophils % 2.8 05/21/20 06:30 Basophils % 0.1 05/21/20 06:30 Absolute Neutrophils 6.95 k/cumm (1.2-6.7) H 05/21/20 06:30 Absolute Lymphocytes 1.40 k/cumm (1.2-3.4) 05/21/20 06:30 Absolute Monocytes 0.92 k/cumm (0.11-0.7) H 05/21/20 06:30 Absolute Eosinophils 0.28 k/cumm (0.0-0.7) 05/21/20 06:30 Absolute Basophils 0.01 k/cumm (0.0-0.2) 05/21/20 06:30 Differential Comment Rbc morph reviewed 05/21/20 06:30 RBC Morphology See below 05/20/20 07:55 Polychromasia Present 05/21/20 06:30 Hypochromasia 1+ 05/21/20 06:30 Anisocytosis 1+ 05/16/20 07:06 Sodium 136 mmol/L (136-145) 05/21/20 06:30 Potassium 3.3 mmol/L (3.5-5.1) L 05/21/20 06:30 Chloride 104 mmol/L (98-107) 05/21/20 06:30 Carbon Dioxide 26.3 mmol/L (21.0-32.0) 05/21/20 06:30 Anion Gap 5.7 mmol/L (3-11) 05/21/20 06:30 BUN 21 mg/dL (7-18) H 05/21/20 06:30 Creatinine 0.79 mg/dL (0.55-1.02) 05/21/20 06:30 Estimated GFR/1.73 m2 >= 60.00 (mL/min/1.73m2) 05/21/20 06:30 Glucose 152 mg/dL (74-106) H 05/21/20 06:30 Calcium 7.8 mg/dL (8.5-10.1) L 05/21/20 06:30 Phosphorus 2.6 mg/dL (2.6-4.7) 05/21/20 06:30 Magnesium 1.9 mg/dL (1.8-2.4) 05/21/20 06:30 Iron 138 ug/dL (50-170) 05/21/20 06:30 TIBC 141 ug/dL (250-450) L 05/21/20 06:30 Transferrin % Sat 98 % (15-50) H 05/21/20 06:30 Total Bilirubin 0.3 mg/dL (0.2-1.0) 05/18/20 06:30 AST 19 U/L (15-37) 05/18/20 06:30 ALT 9 U/L (14-59) L 05/18/20 06:30 Alkaline Phosphatase 75 U/L (46-116) 05/18/20 06:30 Troponin I < 0.05 ng/mL (<0.06) 05/14/20 19:15 Total Protein 5.9 g/dL (6.4-8.2) L 05/18/20 06:30 Albumin 2.0 g/dL (3.4-5.0) L 05/18/20 06:30 COVID-19 PCR Negative (Negative) 05/14/20 17:30 Nasopharyn COVID-19 PCR Not Applicable 05/14/20 17:30 Ref Test Perform Site [facility] lab 05/14/20 17:30
--- NOTE | 2020-05-21 12:32 | W.NUTRFU ---
Date of service: 05/21/20 Time of Service: 12:32 Nutritional Follow up NOTE: Met with Lisa today. Receiving TPN s/p small bowel resection. On bowel rest. Meeting 100% nutrient needs via TPN and tolerating well. Advance diet per surgery. No new nutritional recommendations at this time. Time Spent in Nutritional Counseling and Treatment: 5 min spent face to face
[2020-05-21] MEDS: Normal Saline Flush 10 ML SYR IVP (14:58)
--- NOTE | 2020-05-21 15:13 | PT.INTREAT ---
Date of service: 05/21/20 Time of Service: 15:13 PT Notes Visit Reasons: SMALL BOWEL OBSTRUCTION Inpatient Physical Therapy Treatment Note [facility] Date: 05/21/2020 SUBJECTIVE: Lisa states that her bottom hurts this am. She indicated that she is more comfortable in recliner vs bed. OBJECTIVE: [] BED MOBILITY/TRANSFERS Supine-sit: mod A x2 Sit-supine: [mod A x2 Sit-stand: min A x2 Stand-sit: min A x2 GAIT Assistive Device: FWW Weight bearing: FWB Assist: CGA x2 Distance: 4-5 steps THEREX: global LE strength and stabilization, see flowsheet for details. ASSESSMENT: tolerated sessions very well. Pain seemed to be under control, allowing her to move around better. Pain with SLR this pm, however she did not complain until she was finished. She required less assistance with transferring into and out of bed. PLAN: continue PT POC TREATMENT CODE/TIME: 25 min in am and 25 min in pm. [id number], [id number].
[2020-05-21] MEDS: POTASSIUM CHLORIDE 10 MEQ/100 ML BAG 100 MEQ IVPB (17:03)
[2020-05-21] MEDS: Pantoprazole 40 MG VIAL IVP (18:24)
[2020-05-21 18:49] LABS: HCT 28.5 % (36.0-46.0)
[2020-05-21 18:54] LABS: HGB 9.3 g/dL (12.0-15.5)
[2020-05-21] MEDS: Docusate Sodium 100 MG CAP PO (21:00)
[2020-05-21] MEDS: Docusate Sodium 100 MG/10 ML CUP PO (22:49)
[2020-05-22] VITALS (39 sets, daily range): BP systolic 102–148; BP diastolic 35–60; PULSE 77–110; RESP 9–40; TEMP 34–36.9; O2SAT 90–99
[2020-05-22] MEDS: Insulin Aspart 300 UNITS/3 ML PEN SC ×4 (06:18→23:38)
[2020-05-22 06:43] LABS: HCT 27.1 % (36.0-46.0); HGB 8.7 g/dL (12.0-15.5)
[2020-05-22 06:59] LABS: Anion Gap 8.9 mmol/L (3-11); BUN 21 mg/dL (7-18); CO2 25.1 mmol/L (21.0-32.0); CREATININE 0.83 mg/dL (0.55-1.02); Calcium 7.7 mg/dL (8.5-10.1); Chloride 104 mmol/L (98-107); Glucose 149 mg/dL (74-106); Magnesium 1.7 mg/dL (1.8-2.4); PHOSPHORUS 1.7 mg/dL (2.6-4.7); Potassium 3.3 mmol/L (3.5-5.1); Sodium 138 mmol/L (136-145)
[2020-05-22] MEDS: Furosemide 40 MG TAB PO (08:42)
[2020-05-22] MEDS: Metoprolol CR 25 MG TABCR 12.5 MG PO ×2 (08:42→20:32)
--- NOTE | 2020-05-22 10:25 | PT.INTREAT ---
Date of service: 05/22/20 Time of Service: 10:25 PT Notes Visit Reasons: SMALL BOWEL OBSTRUCTION Inpatient Physical Therapy Treatment Note [facility] Date: 05/22/2020 PRECAUTIONS: Fall, activity as tolerated SUBJECTIVE: Lisa is hesitant to participate in PT, due to anxiety over pain and difficulty breathing. OBJECTIVE: Nursing present throughout session. Vital signs all WNL. PAIN: Patient c/o abdominal pain while at rest in the bed, with transfers, and exercise. She reports an improvement in pain while standing and sitting in the chair BED MOBILITY/TRANSFERS Supine-sit: Mod A x2 Sit-stand: Min A x2 Stand-sit: CGA x2 Bed-Chair: CGA x2 GAIT Assistive Device: FWW Weight bearing: Full Assist: CGA x2 Distance: 5' Deviation: No cueing required, improvement in pain levels THEREX: Patient completed several lower extremity exercises, in a long-sitting position, c/o increased abdominal pain, as per flow sheet. She performed static sitting at EOB x5 minutes with Min A?Max A. She also performs static standing at EOB with CGA x2 and FWW support x5 minutes. ASSESSMENT: Patient tolerated session with complaint of singificant abdomial pain at rest in the bed and with exercise and transfers, improving in standing position and while sitting in chair. She requires CGAx2 for ambulation at this time. She would benefit from continued global strengthening as well as gait training for improvement and progression towards independence with mobility. PLAN: Continue with PTs POC TREATMENT CODE/TIME: 30 minutes; [id number] x2
--- NOTE | 2020-05-22 13:16 | W.PM.PROGNOT ---
Date of Service Date of service: 05/22/20 Time of Service: 13:16 Assessment and Plan Assessment and plan (1) Anemia due to blood loss, acute: Status: Acute (2) S/P small bowel resection: Status: Acute Assessment and plan: POD#4 tried cl liq. more bloated today. Hold back on liquids this afternoon. Cont on TPN until at least protein drinks. electrolytes adjusted -not on abx currently -hgb 8.7. Will cont to hold elliquis as this is a change. no signs of active/ongoing bleeding.she is on them for a stroke assoc w/ a fib. She is on lovenox. doing Venofer -cover blood sugars w/ insulin. electrolytes adjusted. cont TPN until able to tolerate full liquids. -PPI -DVT start lovenox. -pt walked a few steps today. slowly getting stronger. Would benefit from rehab again. cont PT. -hold liquids tonight until ileus resolving. -d/c curry once she is strong enough to use commode. (3) History of CVA (cerebrovascular accident): Status: Acute (4) Squamous cell carcinoma of pyriform sinus: Status: Acute (5) Stenosis of carotid artery: Status: Chronic (6) Peripheral venous insufficiency: Status: Chronic (7) COPD (chronic obstructive pulmonary disease): Status: Chronic Qualifiers: COPD type: unspecified COPD Qualified Code(s): J44.9 - Chronic obstructive pulmonary disease, unspecified (8) Anxiety: Status: Chronic (9) Tracheostomy care: Status: Acute Subjective Subjective Interval history since last seen: Lisa has little bit more strength today. She transfers easier today and was able to walk about 5 steps to the door in her room. Her nurse today has not visualized her sacrum yet today. Nursing notes today that her abdomen is a little bit more bloated. Patient is unsure if she is passing gas. She is not had a bowel movement yet. She did drink about half of her clear liquid tray but now she is a little more distended today. So we will have hold down liquids for the rest of the afternoon. Try to get her clear boost protein supplement in today. Electrolytes were discussed with pharmacy and they will adjust her TPN accordingly. No further changes and continue with walking and strength building. She will most likely need to go to rehab again after this hospitalization. Exam HENMT Other: stable no changes Resp Effort & Inspection: normal respiratory effort Auscultation: clear to auscultation bilaterally Cardio Other: SBP improved. in 120's today. GI Other: distended today BS are high pitched incision c/d/i Skin Other: RN stated is <1cm. no redness or signs of infection Stage I Extrem Other: no edema line site c/d/i Objective Objective Clinical Data: Abnormal lab results 05/21/20 05/22/20 05/22/20 Range/Units 18:34 06:20 06:20 Hgb 9.3 L 8.7 L (12.0-15.5) g/dL Hct 28.5 L 27.1 L (36.0-46.0) % Potassium 3.3 L (3.5-5.1) mmol/L BUN 21 H (7-18) mg/dL Glucose 149 H (74-106) mg/dL Calcium 7.7 L (8.5-10.1) mg/dL Phosphorus 1.7 L (2.6-4.7) mg/dL Magnesium 1.7 L (1.8-2.4) mg/dL Vital Signs Temperature 36.5 C 05/22/20 12:19 Temperature Source Temporal Artery Scan 05/22/20 12:19 Pulse 89 05/22/20 12:19 Pulse Rhythm Regular 05/18/20 10:26 Pulse 83 05/22/20 08:54 Respiratory Rate 9 L 05/22/20 12:19 Respiratory Effort Non-Labored 05/22/20 12:19 Respiratory Depth Normal 05/22/20 12:19 Respiratory Pattern Normal 05/22/20 12:19 Blood Pressure 124/46 L 05/22/20 12:19 Blood Pressure Mean 72 05/22/20 12:19 Blood Pressure Position Sitting 05/22/20 12:19 Pulse Oximetry 96 05/22/20 12:19 Oxygen Delivery Method Hi Flow Nasal Cannula 05/22/20 12:19 Oxygen Flow Rate 30 05/22/20 12:19 Fraction of Inspired Oxygen (FIO2) 21 05/22/20 12:19 Pain Level 0 05/22/20 12:19 Comment 05/18/20 08:00 Intake & Output 05/21/20 05/22/20 05/22/20 23:59 11:59 23:59 Intake Total 2390 / 3421 240 / 240 Output Total 2175 / 3885 400 / 400 Balance 215 / -464 -160 / -160 Intake: IV 2390 / 3421 Oral 240 / 240 Output: Gastric Drainage 0 / 0 Lt Upper Quadrant 0 / 0 Urine 2175 / 3885 400 / 400 Other: Urine Color Pale Pale Yellow Urine Appearance Clear Clear Urine Odor None Comment Curry Indwelling Curry catheter. Curry Voiding Methods Indwelling Catheter Laboratory Results WBC 9.84 k/cumm (4.4-10.8) 05/21/20 06:30 RBC 3.01 m/cumm (4.00-5.20) L 05/21/20 06:30 Hgb 8.7 g/dL (12.0-15.5) L 05/22/20 06:20 Hct 27.1 % (36.0-46.0) L 05/22/20 06:20 MCV 92.7 fL (80-95) 05/21/20 06:30 MCH 29.6 pg (27.0-33.0) 05/21/20 06:30 MCHC 31.9 g/dL (32.0-36.0) L 05/21/20 06:30 RDW 14.8 % (11.7-14.6) H 05/21/20 06:30 Plt Count 267 x1000/uL (130-400) 05/21/20 06:30 MPV 9.7 fL (8.0-11.0) 05/21/20 06:30 Immature Gran % 2.8 % 05/21/20 06:30 Neutrophils % 70.8 05/21/20 06:30 Lymphocytes % 14.2 05/21/20 06:30 Monocytes % 9.3 05/21/20 06:30 Eosinophils % 2.8 05/21/20 06:30 Basophils % 0.1 05/21/20 06:30 Absolute Neutrophils 6.95 k/cumm (1.2-6.7) H 05/21/20 06:30 Absolute Lymphocytes 1.40 k/cumm (1.2-3.4) 05/21/20 06:30 Absolute Monocytes 0.92 k/cumm (0.11-0.7) H 05/21/20 06:30 Absolute Eosinophils 0.28 k/cumm (0.0-0.7) 05/21/20 06:30 Absolute Basophils 0.01 k/cumm (0.0-0.2) 05/21/20 06:30 Differential Comment Rbc morph reviewed 05/21/20 06:30 RBC Morphology See below 05/20/20 07:55 Polychromasia Present 05/21/20 06:30 Hypochromasia 1+ 05/21/20 06:30 Anisocytosis 1+ 05/16/20 07:06 Sodium 138 mmol/L (136-145) 05/22/20 06:20 Potassium 3.3 mmol/L (3.5-5.1) L 05/22/20 06:20 Chloride 104 mmol/L (98-107) 05/22/20 06:20 Carbon Dioxide 25.1 mmol/L (21.0-32.0) 05/22/20 06:20 Anion Gap 8.9 mmol/L (3-11) 05/22/20 06:20 BUN 21 mg/dL (7-18) H 05/22/20 06:20 Creatinine 0.83 mg/dL (0.55-1.02) 05/22/20 06:20 Estimated GFR/1.73 m2 >= 60.00 (mL/min/1.73m2) 05/22/20 06:20 Glucose 149 mg/dL (74-106) H 05/22/20 06:20 Calcium 7.7 mg/dL (8.5-10.1) L 05/22/20 06:20 Phosphorus 1.7 mg/dL (2.6-4.7) L 05/22/20 06:20 Magnesium 1.7 mg/dL (1.8-2.4) L 05/22/20 06:20 Iron 138 ug/dL (50-170) 05/21/20 06:30 TIBC 141 ug/dL (250-450) L 05/21/20 06:30 Transferrin % Sat 98 % (15-50) H 05/21/20 06:30 Total Bilirubin 0.3 mg/dL (0.2-1.0) 05/18/20 06:30 AST 19 U/L (15-37) 05/18/20 06:30 ALT 9 U/L (14-59) L 05/18/20 06:30 Alkaline Phosphatase 75 U/L (46-116) 05/18/20 06:30 Troponin I < 0.05 ng/mL (<0.06) 05/14/20 19:15 Total Protein 5.9 g/dL (6.4-8.2) L 05/18/20 06:30 Albumin 2.0 g/dL (3.4-5.0) L 05/18/20 06:30 COVID-19 PCR Negative (Negative) 05/14/20 17:30 Nasopharyn COVID-19 PCR Not Applicable 05/14/20 17:30 Ref Test Perform Site [facility] lab 05/14/20 17:30
[2020-05-22] MEDS: MAGNESIUM SULFATE 1 GM/100 ML BAG IVPB (14:02)
[2020-05-22] MEDS: Normal Saline Flush 10 ML SYR IVP ×2 (17:21→20:44)
[2020-05-22] MEDS: Pantoprazole 40 MG VIAL IVP (17:22)
[2020-05-22] MEDS: Enoxaparin 40 MG/0.4 ML SYR SC (17:22)
--- NOTE | 2020-05-22 19:24 | PDOC.CMPRO ---
- If Service Date Differs Date of service: 05/22/20 Time of Service: 19:24 Care Management Progress Note S/O: Edwin remains in the ICU. She was sitting up in a chair when CM met with her. She indicated that she was feeling OK and did not need any assistance at this time. During the brief conversation, Edwin fell asleep. edwin remains on TPN and attempts to consume a clear liquid diet left her bloated. Edwin did walk a few feet in the unit. She will likely need rehab before returning home. A: Edwin is an 80 year old woman admitted on 05/14/20 with a partial SBO P: Edwin may benefit from a short stay in a SNF before returning home. She is post op from a partial bowel resection. 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 CM will continue to follow and assess for ongoing discharge needs.
[2020-05-22] MEDS: Docusate Sodium 100 MG/10 ML CUP PO (20:33)
[2020-05-23] VITALS (34 sets, daily range): BP systolic 94–161; BP diastolic 37–71; PULSE 73–119; RESP 20–36; TEMP 34–37.8; O2SAT 92–98
[2020-05-23 06:09] LABS: Abs Immature Grans 0.17 k/cumm (0.0-0.09); HCT 26.6 % (36.0-46.0); HGB 8.8 g/dL (12.0-15.5); Mean Corp. HGB Concentration 33.1 g/dL (32.0-36.0); Mean Corpuscular Hemoglobin 30.1 pg (27.0-33.0); Mean Corpuscular Volume 91.1 fL (80-95); Mean Platelet Volume 9.4 fL (8.0-11.0); Platelet Count 303 x1000/uL (130-400); RBC 2.92 m/cumm (4.00-5.20); RBC Distribution Width 14.9 % (11.7-14.6); White Blood Cell Count 24.52 k/cumm (4.4-10.8)
[2020-05-23 06:34] LABS: Anion Gap 8.6 mmol/L (3-11); BUN 18 mg/dL (7-18); CO2 24.4 mmol/L (21.0-32.0); CREATININE 0.82 mg/dL (0.55-1.02); Calcium 7.5 mg/dL (8.5-10.1); Chloride 102 mmol/L (98-107); Glucose 196 mg/dL (74-106); Lipase 56 U/L (73-393); Magnesium 1.7 mg/dL (1.8-2.4); Potassium 3.1 mmol/L (3.5-5.1); Sodium 135 mmol/L (136-145)
[2020-05-23] MEDS: Insulin Aspart 300 UNITS/3 ML PEN SC ×3 (06:38→18:14)
[2020-05-23 06:46] LABS: Absolute Lymphocyte Count 1.47 k/cumm (1.2-3.4); Absolute Monocyte Count 0.74 k/cumm (0.11-0.7); Absolute Neutrophil Count 22.31 k/cumm (1.2-6.7); Anisocytosis 1+; Diff Comment Agrees w/ Instrument; Hypochromasia 1+; Polychromasia Present
[2020-05-23] MEDS: Docusate Sodium 100 MG/10 ML CUP PO (08:30)
[2020-05-23] MEDS: Furosemide 40 MG TAB PO (08:30)
--- NOTE | 2020-05-23 08:44 | DI.RAD_ITS ---
EXAM: 2D digital imaging was performed. CLINICAL HISTORY: Elevated WBC count. Temp 37.8. COMPARISON: CR,XR XR ABDOMEN FLAT PLATE from 12/07/2019 TECHNIQUE: Supine views of the abdomen performed. FINDINGS: BOWEL GAS PATTERN: Dilated loops of bowel are present which may reflect an obstruction or ileus. CALCIFICATIONS: No radiopaque calcifications. OSSEOUS STRUCTURES: Degenerative changes are seen in the spine. There is a right convex scoliosis of the lumbar spine. OTHER FINDINGS: There is a gastrostomy tube in the left abdomen. Desire are seen in the midline of the pelvis secondary to recent surgery. IMPRESSION: 1. Findings suggest a bowel obstruction or ileus. 2. Skin desire secondary to recent abdominal surgery. DATA REPOSITORY: RADIATION DOSE DELIVERED:
[2020-05-23] MEDS: Metoprolol CR 25 MG TABCR 12.5 MG PO ×2 (09:20→20:00)
--- NOTE | 2020-05-23 09:26 | PDOC.CMPRO ---
- If Service Date Differs Date of service: 05/23/20 Time of Service: 09:26 Care Management Progress Note S/O: Lisa was sitting up in a chair when CM met with her. She indicated that she was not doing very well today. This morning her WBC was found to be elevated and she began having liquid diarrhea, which is normal post-op per provider. Blood cultures were done, although she is afebrile. CM discussed the possibility of going to rehab for a short time when she is ready for discharge. Lisa indicated that she is unsure if this is something she is willing to consider. A: Lisa is an 80 year old woman admitted on 05/14/20 with a partial SBO P: Lisa may benefit from a short stay in a SNF before returning home. She is post op from a partial bowel resection. 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 CM will continue to follow and assess for ongoing discharge needs.
--- NOTE | 2020-05-23 09:36 | DI.VRAD_ITS ---
PROCEDURE INFORMATION: Exam: XR Abdomen, 3 or More Views Exam date and time: 05/23/2020 9:07 AM Age: 80 years old Clinical indication: Fever; Additional info: Elevated wbc count. TECHNIQUE: Imaging protocol: XR of the abdomen. Views: 3 or more views. COMPARISON: CR RF SMALL BOWEL SERIES 05/17/2020 2:12 PM FINDINGS: Tubes, catheters and devices: Gastrostomy tube terminates in the left abdomen Gastrointestinal tract: Multiple loops of dilated bowel may represent obstruction or ileus. Intraperitoneal space: Normal. No free air. Bones/joints: Unremarkable for age. Soft tissues: Live overlie the midline consistent with recent surgery IMPRESSION: Multiple loops of dilated bowel may represent obstruction or ileus. Dictated and Authenticated by: Tatianna Peña MD. Ordering:KVNG Zhou MD
--- NOTE | 2020-05-23 09:37 | DI.VRAD_ITS ---
PROCEDURE INFORMATION: Exam: XR Chest, 1 View Exam date and time: 05/23/2020 9:15 AM Age: 80 years old Clinical indication: Fever; Additional info: Elevated wbc count. TECHNIQUE: Imaging protocol: XR of the chest Views: 1 view. COMPARISON: CR XR PORTABLE CHEST AP POST LINE 05/18/2020 12:06 PM FINDINGS: Tubes, catheters and devices: Tracheostomy tube terminates 7 cm above the angelica Overlying EKG wires A left peripherally inserted central venous catheter lies with its tip in the superior vena cava. Lungs: Unremarkable. No consolidation. Pleural space: Unremarkable. No pleural effusion. No pneumothorax. Heart/Mediastinum: Unremarkable. No cardiomegaly. Bones/joints: Unremarkable. IMPRESSION: No acute process Dictated and Authenticated by: Tatianna Peña MD. Ordering:KVNG Zhou MD
[2020-05-23] MEDS: Normal Saline Flush 10 ML SYR IVP ×2 (10:15→17:27)
--- NOTE | 2020-05-23 10:22 | PT.INTREAT ---
Date of service: 05/23/20 Time of Service: 10:23 PT Notes Visit Reasons: SMALL BOWEL OBSTRUCTION Inpatient Physical Therapy Treatment Note [facility] Date: 05/23/2020 PRECAUTIONS: Fall, activity as tolerated SUBJECTIVE: Lisa reports that she is not feeling well today, but is agreeable to participating in PT. OBJECTIVE: Nursing present throughout session. PAIN: Patient c/o abdominal pain with exercise. BED MOBILITY/TRANSFERS Supine-sit: Mod A x2 Sit-stand: Mod A x2 Stand-sit: Min A x2 Bed-Chair: Mod A x2 GAIT Assistive Device: FWW Weight bearing: Full Assist: Mod A x2 Distance: 5' Deviation: Patient required cueing to not lean backward Static standing at EOB 2 x 2 minutes requiring Mod A x2 ASSESSMENT: Patient tolerated session with complaint of significant abdominal pain at rest in the bed and with transfers, improving in standing position. She requires Mod A x2 for ambulation at this time. She would benefit from continued global strengthening as well as gait training for improvement and progression towards independence with mobility. PLAN: Continue with PTs POC TREATMENT CODE/TIME: 30 minutes; 75092 x2
[2020-05-23] MEDS: PIPERACILLIN/TAZO 3.375 GM in Normal Saline 50 ML IVPB ×3 (10:40→22:33)
--- NOTE | 2020-05-23 12:07 | W.PM.PROGNOT ---
Date of Service Date of service: 05/23/20 Time of Service: 12:07 Assessment and Plan Assessment and plan (1) Neutrophilic leukocytosis: Status: Acute Assessment and plan: elevated WBC today. no fevers currently & BP has been stable cxr- neg wound- c/d/i. stage I decub on sacrum shows no infection. line site is c/d/i no signs of dvt. ddimer is pd UA is neg pt had siarrhea x4 earlier today. Bt this was also her first BM after GI surgery. It was liquid- but this is nl after sugery. She has not been on abx unti today. not seening any etiology for this quite elevated WBC. blood cultures were done- 1 peripherally adn one from PICC. started on empiric zosyn. cont to watch for signs of sepsis clinically pt does not appear septic adn appears stab;e. She is more week and tired today. She is a max two assist to get out of bed. (2) Anemia due to blood loss, acute: Status: Acute Assessment and plan: stable. umesh edmond today in case there is any furthering signs of sepsis that could be developing from the abdom (3) S/P small bowel resection: Status: Acute Assessment and plan: pod#5.Earlier KUB does show that she has an ileus. She did ahve a BM and her belly is soffter after this. Some BS are still high pitched. Will hold on further diet for another 24hrs. pt can't say if she is hungry. (4) Tracheostomy care: Status: Acute (5) COPD (chronic obstructive pulmonary disease): Status: Chronic Qualifiers: COPD type: unspecified COPD Qualified Code(s): J44.9 - Chronic obstructive pulmonary disease, unspecified (6) Pharyngoesophageal dysphagia: Status: Acute Subjective Subjective Interval history since last seen: Patient appears more weak and tired today. Her blood pressure has been stable for the last 48 hours. Her white count did come back elevated today but no etiology for this has been found. Her abdomen was distended and bowel sounds were high-pitched she had a bowel movement and this is improved. Patient does not know if she is hungry or not. We will stick with water and ice for the rest of today. Patient does not appear toxic or septic Exam HENMT Other: no jaundice. no thrush no sputum.trach site c/d/i Resp Effort & Inspection: normal respiratory effort Auscultation: clear to auscultation bilaterally Cardio Rate: regular rate Rhythm: other Other: SBP comtrolled GI Inspection: incision (c/d/i. + BM no blood) Auscultation: hyperactive bowel sounds Other: few high pitched. no peritonitis. Skin Other: stage I breakdown. line site c/d/i Extrem General: no clubbing, cyanosis or edema Objective Objective Clinical Data: Abnormal lab results 05/23/20 05/23/20 Range/Units 05:45 05:45 WBC 24.52 H (4.4-10.8) k/cumm RBC 2.92 L (4.00-5.20) m/cumm Hgb 8.8 L (12.0-15.5) g/dL Hct 26.6 L (36.0-46.0) % RDW 14.9 H (11.7-14.6) % Absolute Neutrophils 22.31 H (1.2-6.7) k/cumm Absolute Monocytes 0.74 H (0.11-0.7) k/cumm Sodium 135 L (136-145) mmol/L Potassium 3.1 L (3.5-5.1) mmol/L Glucose 196 H (74-106) mg/dL Calcium 7.5 L (8.5-10.1) mg/dL Phosphorus 2.0 L (2.6-4.7) mg/dL Magnesium 1.7 L (1.8-2.4) mg/dL Vital Signs Temperature 36.8 C 05/23/20 10:34 Temperature Source Temporal Artery Scan 05/23/20 10:34 Pulse 73 05/23/20 08:02 Pulse Rhythm Regular 05/18/20 10:26 Pulse 119 H 05/23/20 10:00 Respiratory Rate 20 05/23/20 10:00 Respiratory Effort 05/23/20 07:30 Respiratory Depth Normal 05/23/20 07:30 Respiratory Pattern Normal 05/23/20 07:30 Blood Pressure 125/40 L 05/23/20 08:02 Blood Pressure Mean 57 05/23/20 08:02 Blood Pressure Position Left Lateral 05/23/20 07:30 Pulse Oximetry 92 L 05/23/20 08:02 Oxygen Delivery Method Hi Flow System 05/23/20 07:30 Oxygen Flow Rate 30 05/23/20 08:31 Fraction of Inspired Oxygen (FIO2) 21 05/23/20 08:31 Pain Level 0 05/23/20 06:49 Comment 05/18/20 08:00 Intake & Output 05/22/20 05/23/20 05/23/20 23:59 11:59 23:59 Intake Total 250 / 490 50 / 50 Output Total 550 / 950 Balance -300 / -460 50 / 50 Intake: IV 250 / 250 50 / 50 Output: Urine 550 / 950 Other: Urine Color Yellow Yellow Urine Appearance Cloudy Clear Urine Odor None Comment Edwards Dry brief worn at this time. Stool Occult Blood Negative Stool Size Large Stool Characteristics Liquid Mucoid Brown Voiding Methods Incontinent Laboratory Results WBC 24.52 k/cumm (4.4-10.8) H 05/23/20 05:45 RBC 2.92 m/cumm (4.00-5.20) L 05/23/20 05:45 Hgb 8.8 g/dL (12.0-15.5) L 05/23/20 05:45 Hct 26.6 % (36.0-46.0) L 05/23/20 05:45 MCV 91.1 fL (80-95) 05/23/20 05:45 MCH 30.1 pg (27.0-33.0) 05/23/20 05:45 MCHC 33.1 g/dL (32.0-36.0) 05/23/20 05:45 RDW 14.9 % (11.7-14.6) H 05/23/20 05:45 Plt Count 303 x1000/uL (130-400) 05/23/20 05:45 MPV 9.4 fL (8.0-11.0) 05/23/20 05:45 Immature Gran % 0.0 % 05/23/20 05:45 Neutrophils % 86.0 05/23/20 05:45 Band Neutrophils % 5.0 % 05/23/20 05:45 Lymphocytes % 6.0 05/23/20 05:45 Monocytes % 3.0 05/23/20 05:45 Eosinophils % 0.0 05/23/20 05:45 Basophils % 0.0 05/23/20 05:45 Absolute Neutrophils 22.31 k/cumm (1.2-6.7) H 05/23/20 05:45 Absolute Lymphocytes 1.47 k/cumm (1.2-3.4) 05/23/20 05:45 Absolute Monocytes 0.74 k/cumm (0.11-0.7) H 05/23/20 05:45 Absolute Eosinophils 0.00 k/cumm (0.0-0.7) 05/23/20 05:45 Absolute Basophils 0.00 k/cumm (0.0-0.2) 05/23/20 05:45 Differential Comment Agrees w/ instrument 05/23/20 05:45 RBC Morphology See below 05/23/20 05:45 Polychromasia Present 05/23/20 05:45 Hypochromasia 1+ 05/23/20 05:45 Anisocytosis 1+ 05/23/20 05:45 Sodium 135 mmol/L (136-145) L 05/23/20 05:45 Potassium 3.1 mmol/L (3.5-5.1) L 05/23/20 05:45 Chloride 102 mmol/L (98-107) 05/23/20 05:45 Carbon Dioxide 24.4 mmol/L (21.0-32.0) 05/23/20 05:45 Anion Gap 8.6 mmol/L (3-11) 05/23/20 05:45 BUN 18 mg/dL (7-18) 05/23/20 05:45 Creatinine 0.82 mg/dL (0.55-1.02) 05/23/20 05:45 Estimated GFR/1.73 m2 >= 60.00 (mL/min/1.73m2) 05/23/20 05:45 Glucose 196 mg/dL (74-106) H 05/23/20 05:45 Calcium 7.5 mg/dL (8.5-10.1) L 05/23/20 05:45 Phosphorus 2.0 mg/dL (2.6-4.7) L 05/23/20 05:45 Magnesium 1.7 mg/dL (1.8-2.4) L 05/23/20 05:45 Iron 138 ug/dL (50-170) 05/21/20 06:30 TIBC 141 ug/dL (250-450) L 05/21/20 06:30 Transferrin % Sat 98 % (15-50) H 05/21/20 06:30 Total Bilirubin 0.3 mg/dL (0.2-1.0) 05/18/20 06:30 AST 19 U/L (15-37) 05/18/20 06:30 ALT 9 U/L (14-59) L 05/18/20 06:30 Alkaline Phosphatase 75 U/L (46-116) 05/18/20 06:30 Troponin I < 0.05 ng/mL (<0.06) 05/14/20 19:15 Total Protein 5.9 g/dL (6.4-8.2) L 05/18/20 06:30 Albumin 2.0 g/dL (3.4-5.0) L 05/18/20 06:30 Lipase 56 U/L (73-393) 05/23/20 05:45 COVID-19 PCR Negative (Negative) 05/14/20 17:30 Nasopharyn COVID-19 PCR Not Applicable 05/14/20 17:30 Ref Test Perform Site [facility] lab 05/14/20 17:30
[2020-05-23] MEDS: POTASSIUM CHLORIDE 10 MEQ/100 ML BAG 100 MEQ IVPB (13:05)
[2020-05-23 14:26] LABS: Bilirubin Negative (Negative); Blood Negative (Negative); Clarity Clear (Clear); Glucose Negative (Negative); Ketones Negative (Negative); Leukocyte Esterase Negative (Negative); Nitrite Negative (Negative); Specific Gravity 1.015 (1.005-1.025); Urobilinogen 0.2 EU/dL (Up TO 0.2)
--- NOTE | 2020-05-23 14:45 | DI.RAD_ITS ---
EXAM: XR PORTABLE CHEST AP CLINICAL HISTORY: Elevated WBC. T 37.8 TECHNIQUE: 2D digital imaging was performed. COMPARISON: CR XR PORTABLE CHEST AP POST LINE from 05/18/2020 FINDINGS: MEDIASTINUM: The patient has a tracheostomy tube which terminates 7 cm above the angelica. HEART: Normal. PULMONARY VASCULATURE: Normal. LUNGS: Clear. PLEURAL SPACE: No pleural effusion or pneumothorax. BONE:No acute abnormality. OTHER FINDINGS:The tip of the left PICC line is seen in the superior vena cava. EKG wires are seen o verlying the chest. IMPRESSION: No acute pulmonary findings. DATA REPOSITORY: RADIATION DOSE DELIVERED:
[2020-05-23] MEDS: Pantoprazole 40 MG VIAL IVP (17:27)
--- NOTE | 2020-05-23 21:44 | NUR.NOTE ---
per lab phone call-pt is positive for C Dif both toxin and antibody.precautions maintained.
[2020-05-24] VITALS (43 sets, daily range): BP systolic 93–141; BP diastolic 31–62; PULSE 71–107; RESP 14–26; TEMP 34–37; O2SAT 92–96
--- NOTE | 2020-05-24 | DI.US_ITS ---
EXAM: US EXTREMITY VENOUS BI CLINICAL HISTORY: rule out DVT. TECHNIQUE: Bilateral lower extremity venous ultrasound performed using grayscale, color-flow, and sp ectral Doppler analysis. COMPARISON: No exams were available for comparison FINDINGS: The bilateral common femoral, femoral and popliteal veins demonstrate normal compressibility, augment ation, and color Doppler. The posterior tibial veins are patent. The saphenofemoral junctions are unr emarkable. There is no evidence of a Salvaodr's cyst. The soft tissues are unremarkable. IMPRESSION: Right: Negative for DVT Left: Negative for DVT DATA REPOSITORY:
[2020-05-24] MEDS: Insulin Aspart 300 UNITS/3 ML PEN SC ×4 (01:04→18:41)
[2020-05-24] MEDS: PIPERACILLIN/TAZO 3.375 GM in Normal Saline 50 ML IVPB (05:16)
[2020-05-24 06:46] LABS: Lactate 1.5 mmol/L (0.6-1.4)
[2020-05-24 06:50] LABS: Abs Immature Grans 0.11 k/cumm (0.0-0.09); Absolute Lymphocyte Count 1.23 k/cumm (1.2-3.4); Basophils % 0.1; HCT 23.3 % (36.0-46.0); Immature Grans % 0.4 %; Lymphocytes % 4.7; Mean Corpuscular Hemoglobin 30.2 pg (27.0-33.0); Mean Corpuscular Volume 91.4 fL (80-95); Mean Platelet Volume 9.2 fL (8.0-11.0); Monocytes % 4.2; Neutrophils % 90.6; Platelet Count 272 x1000/uL (130-400); RBC 2.55 m/cumm (4.00-5.20)
[2020-05-24 07:05] LABS: ALT 18 U/L (14-59); AST 22 U/L (15-37); Albumin 1.4 g/dL (3.4-5.0); Alkaline Phosphatase 144 U/L (46-116); Anion Gap 7.2 mmol/L (3-11); BUN 17 mg/dL (7-18); Bilirubin, Total 0.5 mg/dL (0.2-1.0); C-Reactive Protein 12.88 mg/dL (0.0-0.3); CO2 22.8 mmol/L (21.0-32.0); CREATININE 0.91 mg/dL (0.55-1.02); Calcium 7.3 mg/dL (8.5-10.1); Chloride 104 mmol/L (98-107); Estimated GFR 59.18 (mL/min/1.73m2); Glucose 206 mg/dL (74-106); Magnesium 1.9 mg/dL (1.8-2.4); PHOSPHORUS 3.1 mg/dL (2.6-4.7); Sodium 134 mmol/L (136-145)
[2020-05-24 07:07] LABS: Potassium 2.9 mmol/L (3.5-5.1)
[2020-05-24 07:10] LABS: Absolute Basophil Count 0.03 k/cumm (0.0-0.2); Absolute Neutrophil Count 23.75 k/cumm (1.2-6.7); White Blood Cell Count 26.21 k/cumm (4.4-10.8)
[2020-05-24 07:11] LABS: Anisocytosis 1+; Diff Comment Agrees w/ Instrument; Polychromasia Present
[2020-05-24 07:12] LABS: HGB 7.7 g/dL (12.0-15.5)
[2020-05-24 07:27] LABS: D-Dimer 2745 ng/mlFEU (<500)
--- NOTE | 2020-05-24 08:28 | PDOC.CMPRO ---
- If Service Date Differs Date of service: 05/24/20 Time of Service: 08:28 Care Management Progress Note S/O: Lisa is alert her son Sb is present during visit and updated. Lisa was positive for C-diff and is now on precautions. CM has requested a palliative care consult and will be in this evening. Patient would like to return home when she is medically ready. A: Lisa is an 80 year old woman admitted on 05/14/20 with a partial SBO P: Lisa will be discharged home when she is medically ready. She has caregiver through [facility] is addition to her family support. She may need to consider a SNF however at this point the plan is to return home. She is post op from a partial bowel resection. If she does go home, she will need resumption of home health orders for nursing and [employer], with the possibility of PT and OT if needed. CM will continue to follow and assess for ongoing discharge needs.
[2020-05-24] MEDS: Metoprolol CR 25 MG TABCR 12.5 MG PO ×2 (09:21→20:58)
[2020-05-24] MEDS: Furosemide 40 MG TAB PO (09:21)
[2020-05-24] MEDS: Normal Saline Flush 10 ML SYR IVP ×2 (09:22→14:24)
[2020-05-24] MEDS: ACETAMINOPHEN 1,000 MG/100 ML BTL 400 MG IVPB (10:02)
[2020-05-24] MEDS: metroNIDAZOLE 500 MG/100 ML BAG 100 MG IVPB ×2 (10:55→18:41)
[2020-05-24] MEDS: diphenhydrAMINE 50 MG/ML VIAL IVP (10:59)
--- NOTE | 2020-05-24 11:26 | PGE_ITS ---
Date of Service Date of service: 05/24/20 Time of Service: 08:00 Assessment and Plan Assessment and plan (1) Anemia due to blood loss, acute: Status: Acute Assessment and plan: Stop Eliquis at this time.. Blood count continues to fall. We will continue her on subcu Lovenox for DVT prophylaxis b/c she is very high risk given her malignancy and recent laparotomy. However I do think she needs to receive blood today. Orders written (2) Neutrophilic leukocytosis: Status: Acute Assessment and plan: Etiology is C. difficile (3) S/P small bowel resection: Status: Acute Assessment and plan: Unfortunately with this setback, her overall prognosis is poor. And I do not know if she is going to be able to rebound from the C. difficile. She is incredibly weak and is bedbound at this point (4) History of CVA (cerebrovascular accident): Status: Acute Assessment and plan: Patient is not stable to be fully anticoagulated at this time . risks outweigh benefits. Patient does have a history of A. fib. 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 Vanco and IV Flagyl (14) Protein-calorie malnutrition, mild: Status: Acute Assessment and plan: Continue TPN and clear liquids as tolerated including a clear liquid boost. (15) Decubitus ulcer, stage I: Status: Acute Assessment and plan: Mepilex. Reposition every 2 hours. Pressure-relief mattress. Subjective Subjective Interval history since last seen: Patient was seen this morning. Does appear comfortable. Her C. difficile did come back positive. She had 9 stools overnight. None of them are overtly bloody. She is not running a temp and her vital signs are stable. Although her potassium is quite low today. We will start treating her for fulminant C. difficile with p.o. vancomycin. Her belly is actually soft and she has good bowel sounds today. She does not appear to be in any significant pain. Exam HENMT Other: No thrush. No jaundice. No eye pain redness or drainage. Still moderate appears unchanged. Cardio Rate: regular rate GI Other: Incision is clean dry and intact. There is less distention today. She does have good bowel sounds today. She has some mild left lower quadrant pain but nothing severe. Her G-tube site is clean dry and intact. Extrem Other: No significant edema. Her line site is clean dry and intact. She does have a stage I decub on her buttocks. This is stable. Objective Objective Clinical Data: Abnormal lab results 05/24/20 05/24/20 05/24/20 Range/Units 06:30 06:30 06:30 WBC 26.21 H* (4.4-10.8) k/cumm RBC 2.55 L (4.00-5.20) m/cumm Hgb 7.7 L (12.0-15.5) g/dL Hct 23.3 L (36.0-46.0) % RDW 15.0 H (11.7-14.6) % Absolute Neutrophils 23.75 H (1.2-6.7) k/cumm Absolute Monocytes 1.10 H (0.11-0.7) k/cumm D-Dimer (<500) ng/mlFEU Sodium 134 L (136-145) mmol/L Potassium 2.9 L* (3.5-5.1) mmol/L Glucose 206 H (74-106) mg/dL Lactate 1.5 H (0.6-1.4) mmol/L Calcium 7.3 L (8.5-10.1) mg/dL Alkaline Phosphatase 144 H (46-116) U/L C-Reactive Protein 12.88 H (0.0-0.3) mg/dL Total Protein 5.0 L (6.4-8.2) g/dL Albumin 1.4 L (3.4-5.0) g/dL Crossmatch 05/24/20 05/24/20 Range/Units 06:30 08:55 WBC (4.4-10.8) k/cumm RBC (4.00-5.20) m/cumm Hgb (12.0-15.5) g/dL Hct (36.0-46.0) % RDW (11.7-14.6) % Absolute Neutrophils (1.2-6.7) k/cumm Absolute Monocytes (0.11-0.7) k/cumm D-Dimer 2745 H (<500) ng/mlFEU Sodium (136-145) mmol/L Potassium (3.5-5.1) mmol/L Glucose (74-106) mg/dL Lactate (0.6-1.4) mmol/L Calcium (8.5-10.1) mg/dL Alkaline Phosphatase (46-116) U/L C-Reactive Protein (0.0-0.3) mg/dL Total Protein (6.4-8.2) g/dL Albumin (3.4-5.0) g/dL Crossmatch See Detail Vital Signs Temperature 37 C 05/24/20 04:00 Temperature Source Temporal Artery Scan 05/24/20 04:00 Pulse 97 H 05/24/20 04:00 Pulse Rhythm Regular 05/18/20 10:26 Pulse 103 H 05/23/20 19:00 Respiratory Rate 18 05/24/20 04:00 Respiratory Effort 05/24/20 04:00 Respiratory Depth Normal 05/24/20 04:00 Respiratory Pattern Tachypnea 05/24/20 04:00 Blood Pressure 141/44 H 05/24/20 04:00 Blood Pressure Mean 76 05/24/20 04:00 Blood Pressure Position Sitting 05/24/20 04:00 Pulse Oximetry 94 L 05/24/20 04:00 Oxygen Delivery Method Hi Flow System 05/24/20 04:00 Oxygen Flow Rate 30 05/24/20 09:58 Fraction of Inspired Oxygen (FIO2) 21 05/24/20 09:58 Pain Level 0 05/24/20 04:00 Comment 05/18/20 08:00 Intake & Output 05/23/20 05/23/20 05/24/20 11:59 23:59 11:59 Intake Total 50 / 500 450 / 500 150 / 150 Output Total 950 / 950 Balance 50 / 500 450 / 500 -800 / -800 Weight 91.8 kg Intake: IV 50 / 500 450 / 500 150 / 150 Output: Urine 950 / 950 Other: Urine Color Yellow Dark Gabrielle Urine Appearance Clear Cloudy Urine Odor None Comment Dry brief worn at this time. pt has indwelling curry cath draining clear straw colored urine pt has indwelling curry cath draining clear straw colored urine Stool Occult Blood Negative Negative Stool Size Large Moderate Large Stool Characteristics Liquid Soft Liquid Mucoid Liquid Mucoid Brown Brown Voiding Methods Incontinent Laboratory Results WBC 26.21 k/cumm (4.4-10.8) H* 05/24/20 06:30 RBC 2.55 m/cumm (4.00-5.20) L 05/24/20 06:30 Hgb 7.7 g/dL (12.0-15.5) L 05/24/20 06:30 Hct 23.3 % (36.0-46.0) L 05/24/20 06:30 MCV 91.4 fL (80-95) 05/24/20 06:30 MCH 30.2 pg (27.0-33.0) 05/24/20 06:30 MCHC 33.0 g/dL (32.0-36.0) 05/24/20 06:30 RDW 15.0 % (11.7-14.6) H 05/24/20 06:30 Plt Count 272 x1000/uL (130-400) 05/24/20 06:30 MPV 9.2 fL (8.0-11.0) 05/24/20 06:30 Immature Gran % 0.4 % 05/24/20 06:30 Neutrophils % 90.6 05/24/20 06:30 Band Neutrophils % 5.0 % 05/23/20 05:45 Lymphocytes % 4.7 05/24/20 06:30 Monocytes % 4.2 05/24/20 06:30 Eosinophils % 0.0 05/24/20 06:30 Basophils % 0.1 05/24/20 06:30 Absolute Neutrophils 23.75 k/cumm (1.2-6.7) H 05/24/20 06:30 Absolute Lymphocytes 1.23 k/cumm (1.2-3.4) 05/24/20 06:30 Absolute Monocytes 1.10 k/cumm (0.11-0.7) H 05/24/20 06:30 Absolute Eosinophils 0.00 k/cumm (0.0-0.7) 05/24/20 06:30 Absolute Basophils 0.03 k/cumm (0.0-0.2) 05/24/20 06:30 Differential Comment Agrees w/ instrument 05/24/20 06:30 RBC Morphology See below 05/24/20 06:30 Polychromasia Present 05/24/20 06:30 Hypochromasia 1+ 05/23/20 05:45 Anisocytosis 1+ 05/24/20 06:30 D-Dimer 2745 ng/mlFEU (<500) H 05/24/20 06:30 Sodium 134 mmol/L (136-145) L 05/24/20 06:30 Potassium 2.9 mmol/L (3.5-5.1) L* 05/24/20 06:30 Chloride 104 mmol/L (98-107) 05/24/20 06:30 Carbon Dioxide 22.8 mmol/L (21.0-32.0) 05/24/20 06:30 Anion Gap 7.2 mmol/L (3-11) 05/24/20 06:30 BUN 17 mg/dL (7-18) 05/24/20 06:30 Creatinine 0.91 mg/dL (0.55-1.02) 05/24/20 06:30 Estimated GFR/1.73 m2 59.18 (mL/min/1.73m2) 05/24/20 06:30 Glucose 206 mg/dL (74-106) H 05/24/20 06:30 Lactate 1.5 mmol/L (0.6-1.4) H 05/24/20 06:30 Calcium 7.3 mg/dL (8.5-10.1) L 05/24/20 06:30 Phosphorus 3.1 mg/dL (2.6-4.7) 05/24/20 06:30 Magnesium 1.9 mg/dL (1.8-2.4) 05/24/20 06:30 Iron 138 ug/dL (50-170) 05/21/20 06:30 TIBC 141 ug/dL (250-450) L 05/21/20 06:30 Transferrin % Sat 98 % (15-50) H 07/17/20 06:30 Total Bilirubin 0.5 mg/dL (0.2-1.0) 05/24/20 06:30 AST 22 U/L (15-37) 05/24/20 06:30 ALT 18 U/L (14-59) 05/24/20 06:30 Alkaline Phosphatase 144 U/L (46-116) H 05/24/20 06:30 Troponin I < 0.05 ng/mL (<0.06) 05/14/20 19:15 C-Reactive Protein 12.88 mg/dL (0.0-0.3) H 05/24/20 06:30 Total Protein 5.0 g/dL (6.4-8.2) L 05/24/20 06:30 Albumin 1.4 g/dL (3.4-5.0) L 05/24/20 06:30 Lipase 56 U/L (73-393) 05/23/20 05:45 Urine Color Yellow (Yellow) 05/23/20 14:10 Urine Clarity Clear (Clear) 05/23/20 14:10 Urine pH 7.0 (5-8) 05/23/20 14:10 Ur Specific [place] 1.015 (1.005-1.025) 05/23/20 14:10 Urine Protein Negative mg/dL (Negative) 05/23/20 14:10 Urine Ketones Negative mg/dL (Negative) 05/23/20 14:10 Urine Blood Negative (Negative) 05/23/20 14:10 Urine Nitrite Negative (Negative) 05/23/20 14:10 Urine Bilirubin Negative (Negative) 05/23/20 14:10 Urine Urobilinogen 0.2 EU/dL (Up TO 0.2) 05/23/20 14:10 Ur Leukocyte Esterase Negative (Negative) 05/23/20 14:10 Urine Glucose Negative mg/dL (Negative) 05/23/20 14:10 COVID-19 PCR Negative (Negative) 05/14/20 17:30 Nasopharyn COVID-19 PCR Not Applicable 05/14/20 17:30 Ref Test Perform Site [facility] lab 05/14/20 17:30 Patient ABO/Rh B Negative 05/24/20 08:55 Antibody Screen Negative 05/24/20 08:55 Crossmatch See Detail 05/24/20 08:55
--- NOTE | 2020-05-24 13:50 | CHAPLAIN ---
Lisa was resting in bed with her eyes clothed when I visited, but nodded as I spoke to her. She had just been given some medication so was sleepy. I'll return to visit later.
[2020-05-24] MEDS: POTASSIUM CHLORIDE 20 MEQ/100 ML BAG 50 MEQ IVPB ×2 (14:21→17:10)
--- NOTE | 2020-05-24 14:24 | PT.INNT ---
Date of service: 05/24/20 Time of Service: 14:24 PT Notes Visit Reasons: SMALL BOWEL OBSTRUCTION held PT today per nsg. Lisa did not sleep well last night. She is C-diff. Receiving blood this pm. She did open her eye when I spoke to her, but she feel back asleep, unable to follow directions. Will check in with her in am.
--- NOTE | 2020-05-24 16:42 | DI.VRAD_ITS ---
PROCEDURE INFORMATION: Exam: US Duplex Lower Extremity Veins, Bilateral Exam date and time: 05/24/2020 3:21 PM Age: 80 years old Clinical indication: Edema, localized; Lower extremity, right and lower extremity, left TECHNIQUE: Imaging protocol: Real-time duplex ultrasound of the extremities with 2-D hernandez scale, color Doppler flow and spectral waveform analysis with image documentation. Complete exam focused on the bilateral lower extremity veins. COMPARISON: No relevant prior studies available. FINDINGS: Right deep veins: Unremarkable. The common femoral, femoral, proximal profunda femoral and popliteal veins are patent without thrombus. Normal Doppler waveforms. Normal compressibility and/or augmentation response. Right superficial veins: Saphenofemoral junction is patent without thrombus. Left deep veins: Unremarkable. The common femoral, femoral, proximal profunda femoral and popliteal veins are patent without thrombus. Normal Doppler waveforms. Normal compressibility and/or augmentation response. Left superficial veins: Saphenofemoral junction is patent without thrombus. Soft tissues: Unremarkable. IMPRESSION: No evidence of deep vein thrombosis. Dictated and Authenticated by: Gatito Barker MD. Ordering:FREDDY Lozano MD
--- NOTE | 2020-05-24 16:57 | W.PM.PROGNOT ---
Date of Service Date of service: 05/24/20 Time of Service: 15:30 Assessment and Plan Assessment and plan (1) Anemia due to blood loss, acute: Status: Acute Assessment and plan: Stop Eliquis at this time.. Blood count continues to fall. We will continue her on subcu Lovenox for DVT prophylaxis b/c she is very high risk given her malignancy and recent laparotomy. P\\ 2 units of blood ordered. One unit given (2) Neutrophilic leukocytosis: Status: Acute Assessment and plan: Etiology is C. difficile P\\ IV flagyl and PO Vancomycin (3) S/P small bowel resection: Status: Acute Assessment and plan: Unfortunately with this setback, her overall prognosis is poor. And I do not know if she is going to be able to rebound from the C. difficile. She is incredibly weak and is bedbound at this point (4) History of CVA (cerebrovascular accident): Status: Acute Assessment and plan: Patient is not stable to be fully anticoagulated at this time . risks outweigh benefits. Patient does have a history of A. fib. (5) Hypokalemia: Status: Resolved Assessment and plan: Electrolytes were addressed (6) Squamous cell carcinoma of pyriform sinus: Status: Acute (7) Tracheostomy care: Status: Acute Assessment and plan: Stable (8) COPD (chronic obstructive pulmonary disease): Status: Chronic Qualifiers: COPD type: unspecified COPD Qualified Code(s): J44.9 - Chronic obstructive pulmonary disease, unspecified (9) Urinary incontinence: Status: Chronic Assessment and plan: Maintain Curry at this time Qualifiers: Urinary Incontinence type: other incontinence Qualified Code(s): N39.498 - Other specified urinary incontinence (10) Peripheral venous insufficiency: Status: Chronic Assessment and plan: A\\ Elevated D-dimer most likely an inflammatory reaction but with hx of A-fib and currently not anticoagulated completely. US ordered. Preliminary report - no DVT appreciated (11) Low back pain: Status: Chronic Qualifiers: Chronicity: chronic Back pain laterality: bilateral Sciatica presence: without sciatica Qualified Code(s): M54.5 - Low back pain; G89.29 - Other chronic pain (12) Hyperlipidemia: Status: Chronic Qualifiers: Hyperlipidemia type: unspecified Qualified Code(s): E78.5 - Hyperlipidemia, unspecified (13) Colitis due to Clostridium difficile: Status: Acute Assessment and plan: P.o. Vanco and IV Flagyl (14) Protein-calorie malnutrition, mild: Status: Acute Assessment and plan: Continue TPN and clear liquids as tolerated including a clear liquid boost. Start TF with Jevity. If able to tolerate T-feeding then may start to wean off the TPN (15) Decubitus ulcer, stage I: Status: Acute Assessment and plan: Mepilex. Reposition every 2 hours. Pressure-relief mattress. Qualifiers: Pressure injury location: sacral region Qualified Code(s): L89.151 - Pressure ulcer of sacral region, stage 1 Subjective Subjective Interval history since last seen: Lisa has perked up a bit per nursing staff after 1 unit of blood. She just had a liquid BM. She doesn't complain of abdominal pain and has tolerated some sips of water. Exam Const General: cooperative Orientation: alert GI Palpation: soft, no hepatosplenomegaly and nontender Auscultation: normal bowel sounds Objective Objective Clinical Data: Abnormal lab results 05/24/20 05/24/20 05/24/20 Range/Units 06:30 06:30 06:30 WBC 26.21 H* (4.4-10.8) k/cumm RBC 2.55 L (4.00-5.20) m/cumm Hgb 7.7 L (12.0-15.5) g/dL Hct 23.3 L (36.0-46.0) % RDW 15.0 H (11.7-14.6) % Absolute Neutrophils 23.75 H (1.2-6.7) k/cumm Absolute Monocytes 1.10 H (0.11-0.7) k/cumm D-Dimer (<500) ng/mlFEU Sodium 134 L (136-145) mmol/L Potassium 2.9 L* (3.5-5.1) mmol/L Glucose 206 H (74-106) mg/dL Lactate 1.5 H (0.6-1.4) mmol/L Calcium 7.3 L (8.5-10.1) mg/dL Alkaline Phosphatase 144 H (46-116) U/L C-Reactive Protein 12.88 H (0.0-0.3) mg/dL Total Protein 5.0 L (6.4-8.2) g/dL Albumin 1.4 L (3.4-5.0) g/dL Crossmatch 05/24/20 05/24/20 Range/Units 06:30 08:55 WBC (4.4-10.8) k/cumm RBC (4.00-5.20) m/cumm Hgb (12.0-15.5) g/dL Hct (36.0-46.0) % RDW (11.7-14.6) % Absolute Neutrophils (1.2-6.7) k/cumm Absolute Monocytes (0.11-0.7) k/cumm D-Dimer 2745 H (<500) ng/mlFEU Sodium (136-145) mmol/L Potassium (3.5-5.1) mmol/L Glucose (74-106) mg/dL Lactate (0.6-1.4) mmol/L Calcium (8.5-10.1) mg/dL Alkaline Phosphatase (46-116) U/L C-Reactive Protein (0.0-0.3) mg/dL Total Protein (6.4-8.2) g/dL Albumin (3.4-5.0) g/dL Crossmatch See Detail Vital Signs Temperature 96.8 F L 05/24/20 14:19 Temperature Source Temporal Artery Scan 05/24/20 04:00 Pulse 76 05/24/20 15:01 Pulse Rhythm Regular 05/18/20 10:26 Pulse 76 05/24/20 15:01 Respiratory Rate 17 05/24/20 15:01 Respiratory Effort 05/24/20 04:00 Respiratory Depth Normal 05/24/20 04:00 Respiratory Pattern Tachypnea 05/24/20 04:00 Blood Pressure 130/40 L 05/24/20 15:01 Blood Pressure Mean 58 05/24/20 15:01 Blood Pressure Position Sitting 05/24/20 04:00 Pulse Oximetry 95 05/24/20 15:01 Oxygen Delivery Method Hi Flow Nasal Cannula 05/24/20 14:19 Oxygen Flow Rate 21 05/24/20 14:19 Fraction of Inspired Oxygen (FIO2) 21 05/24/20 09:58 Pain Level 0 05/24/20 04:00 Comment 05/18/20 08:00 Intake & Output 05/23/20 05/24/20 05/24/20 23:59 11:59 23:59 Intake Total 450 / 500 1208 / 1628 420 / 1628 Output Total 1700 / 2450 750 / 2450 Balance 450 / 500 -492 / -822 -330 / -822 Weight 202 lb 6.15 oz Intake: IV 450 / 500 1208 / 1328 120 / 1328 Blood Product 300 / 300 Rbc Leuko Reduced Unit 300 / 300 [id number] Output: Urine 1700 / 2450 750 / 2450 Other: Urine Color Light Gabrielle Light Gabrielle Urine Appearance Cloudy Clear Comment pt has indwelling curry cath draining clear straw colored urine pt has indwelling curry cath draining clear straw colored urine Stool Occult Blood Negative Stool Size Moderate Large Stool Characteristics Soft Liquid Liquid Mucoid Brown Laboratory Results WBC 26.21 k/cumm (4.4-10.8) H* 05/24/20 06:30 RBC 2.55 m/cumm (4.00-5.20) L 05/24/20 06:30 Hgb 7.7 g/dL (12.0-15.5) L 05/24/20 06:30 Hct 23.3 % (36.0-46.0) L 05/24/20 06:30 MCV 91.4 fL (80-95) 05/24/20 06:30 MCH 30.2 pg (27.0-33.0) 05/24/20 06:30 MCHC 33.0 g/dL (32.0-36.0) 05/24/20 06:30 RDW 15.0 % (11.7-14.6) H 05/24/20 06:30 Plt Count 272 x1000/uL (130-400) 05/24/20 06:30 MPV 9.2 fL (8.0-11.0) 05/24/20 06:30 Immature Gran % 0.4 % 05/24/20 06:30 Neutrophils % 90.6 05/24/20 06:30 Band Neutrophils % 5.0 % 05/23/20 05:45 Lymphocytes % 4.7 05/24/20 06:30 Monocytes % 4.2 05/24/20 06:30 Eosinophils % 0.0 05/24/20 06:30 Basophils % 0.1 05/24/20 06:30 Absolute Neutrophils 23.75 k/cumm (1.2-6.7) H 05/24/20 06:30 Absolute Lymphocytes 1.23 k/cumm (1.2-3.4) 05/24/20 06:30 Absolute Monocytes 1.10 k/cumm (0.11-0.7) H 05/24/20 06:30 Absolute Eosinophils 0.00 k/cumm (0.0-0.7) 05/24/20 06:30 Absolute Basophils 0.03 k/cumm (0.0-0.2) 05/24/20 06:30 Differential Comment Agrees w/ instrument 05/24/20 06:30 RBC Morphology See below 05/24/20 06:30 Polychromasia Present 05/24/20 06:30 Hypochromasia 1+ 05/23/20 05:45 Anisocytosis 1+ 05/24/20 06:30 D-Dimer 2745 ng/mlFEU (<500) H 05/24/20 06:30 Sodium 134 mmol/L (136-145) L 05/24/20 06:30 Potassium 2.9 mmol/L (3.5-5.1) L* 05/24/20 06:30 Chloride 104 mmol/L (98-107) 05/24/20 06:30 Carbon Dioxide 22.8 mmol/L (21.0-32.0) 05/24/20 06:30 Anion Gap 7.2 mmol/L (3-11) 05/24/20 06:30 BUN 17 mg/dL (7-18) 05/24/20 06:30 Creatinine 0.91 mg/dL (0.55-1.02) 05/24/20 06:30 Estimated GFR/1.73 m2 59.18 (mL/min/1.73m2) 05/24/20 06:30 Glucose 206 mg/dL (74-106) H 05/24/20 06:30 Lactate 1.5 mmol/L (0.6-1.4) H 05/24/20 06:30 Calcium 7.3 mg/dL (8.5-10.1) L 05/24/20 06:30 Phosphorus 3.1 mg/dL (2.6-4.7) 05/24/20 06:30 Magnesium 1.9 mg/dL (1.8-2.4) 05/24/20 06:30 Iron 138 ug/dL (50-170) 05/21/20 06:30 TIBC 141 ug/dL (250-450) L 05/21/20 06:30 Transferrin % Sat 98 % (15-50) H 05/21/20 06:30 Total Bilirubin 0.5 mg/dL (0.2-1.0) 05/24/20 06:30 AST 22 U/L (15-37) 05/24/20 06:30 ALT 18 U/L (14-59) 05/24/20 06:30 Alkaline Phosphatase 144 U/L (46-116) H 05/24/20 06:30 Troponin I < 0.05 ng/mL (<0.06) 05/14/20 19:15 C-Reactive Protein 12.88 mg/dL (0.0-0.3) H 05/24/20 06:30 Total Protein 5.0 g/dL (6.4-8.2) L 05/24/20 06:30 Albumin 1.4 g/dL (3.4-5.0) L 05/24/20 06:30 Lipase 56 U/L (73-393) 05/23/20 05:45 Urine Color Yellow (Yellow) 05/23/20 14:10 Urine Clarity Clear (Clear) 05/23/20 14:10 Urine pH 7.0 (5-8) 05/23/20 14:10 Ur Specific [place] 1.015 (1.005-1.025) 05/23/20 14:10 Urine Protein Negative mg/dL (Negative) 05/23/20 14:10 Urine Ketones Negative mg/dL (Negative) 05/23/20 14:10 Urine Blood Negative (Negative) 05/23/20 14:10 Urine Nitrite Negative (Negative) 05/23/20 14:10 Urine Bilirubin Negative (Negative) 05/23/20 14:10 Urine Urobilinogen 0.2 EU/dL (Up TO 0.2) 05/23/20 14:10 Ur Leukocyte Esterase Negative (Negative) 05/23/20 14:10 Urine Glucose Negative mg/dL (Negative) 05/23/20 14:10 COVID-19 PCR Negative (Negative) 05/14/20 17:30 Nasopharyn COVID-19 PCR Not Applicable 05/14/20 17:30 Ref Test Perform Site [facility] lab 05/14/20 17:30 Patient ABO/Rh B Negative 05/24/20 08:55 Antibody Screen Negative 05/24/20 08:55 Crossmatch See Detail 05/24/20 08:55
--- NOTE | 2020-05-24 16:58 | W.NUTCONSULT ---
Date of service: 05/24/20 Time of Service: 17:01 Nutritional Consult ASSESSMENT: MD requests T/f recommendation for this patient. NUTRITIONAL DIAGNOSIS: Calculated needs using ABW 79.5kg. Patient is currently 167% IBW and presents with PCM, stage 1 decubitus ulcer and PCM. Needs calcualted at 25-30 k/cak/kg, 1.5g pro /kg and 30 ml fluid/ kg. INTERVENTION: Recommend: Jevity 1.2@ 30ml/hr. Increase by 10 ml/hr as tolerated to goal of 70ml hr X24hrs. Flush 250ml H2O q6. Provides 2016 k/fatoumata, 98 g/pro, 1253 ml H20 ( 2253ml H2O w/ flush) Recommend: Active Lx Pro supplement 30ml BID via g-tube to help with PCM and wound. MONITORING AND EVALUATION: Administer formula via g-tube as hayley. Check residuals.Will f/u on 05/25 with MD and patient. Time Spent in Nutritional Counseling and Treatment: 15 minutes
[2020-05-24] MEDS: Pantoprazole 40 MG VIAL IVP (17:10)
--- NOTE | 2020-05-24 20:55 | PCNE_ITS ---
Date of service: 05/24/20 Time of Service: 18:55 History of Present Illness Narrative: I am meeting with Lisa for a palliative consult salt. Lisa has been my patient for almost 20 years. Over the last 8 months she has had extensive difficulties with a neck cancer resulting in many many weeks at [facility] and then rehab. She is now home until recently when she developed a small bowel obstruction. She is now status post OR, receiving TPN antibiotics fluids etc. I had been contacted numerous times by Jasmin and Trini regarding their mother's care. They wanted changes in the orders while she was in the hospital. We did let them know that this was not something that we did, but rather her attending at the hospital would be the 1 to request these changes. In the past Lisa was very vocal that she did not want Jasmin to be part of conversations, and determining any care. Please see palliative note for discharge planning from her previous hospitalizations. Trini and Sb were the children taking care of her prior to this hospitalization. They said that Lisa was washing her own dishes walking around the house and at times walking down to the mailbox. They felt that she was doing really well and that she would want to go full stream ahead to get better. Lisa had talked to care management and it said she was tired of all of this. I am here to discuss this with her family and Lisa to see what Lisa wants. Lisa again told me that she did not want Jasmin involved in the conversation. Jasmin's phone number is [phone] I did not contact Jasmin I did contact Trini at [phone]. We did talk about what I really wanted. She again stated that she did not want Jasmin involved in conversation. She also wrote on a piece of paper, see below, I do not want to do this anymore I did date and time this. We talked about different options such as continuing for a couple of days to see if she felt better and if there was progress versus stopping all of these now o ngoing on comfort care with the expectation that she would probably soon. Lisa cried during this time. Family was noticeably upset. Consults Consult date: 05/24/20 Requesting physician: Haydee Morrow Assessment and Plan Assessment and plan (1) Colitis due to Clostridium difficile: Status: Acute (2) Partial obstruction of small intestine: Status: Acute (3) Squamous cell carcinoma of pyriform sinus: Status: Acute (4) Palliative care patient: Status: Acute Assessment and plan: After a long discussion with son, Sb and daugh Hutchinson, Lisa decided she would give it 2 more days and if she didn't feel improvement she wanted to stop treatment and go home, probably on Hospice. Crow Castellanos calls often, but Lisa did not want Jasmin to be part of this discussion. In the past Jasmin has been off Lisa's HIPPA. Per Lisa's wishes, I did not communicate with her. I will visit Lisa and see what path she chooses. My plan is to return on Sunday Crow Feliz is very upset that Lisa was sent home last week. She was clear that she is keeping track of all the things that happened. Sb also stated that she walked into the hospital and now she is very weak and wants to . He feels that this only happened because of NVR H. Trini and Sb wanted her transferred to [facility]. I asked Lisa and she w as very firm she does not want to be transferred to [facility]. I have spent more than 50% of time in counseling with this patient. This document was created by [employer] software. Content was screened for misspellings, grammatical mistakes, etc. I apologize for any problems, but please contact me for further clarification if needed. I will contact surgery and discuss this with them. I do have a call out this morning to Dr. Juarez Review of Systems Narrative: Lisa basically told me she was very tired. She was tired of the pain. She was tired of not being able to have her old life back. [facility] Medical History (Updated 05/24/20 @ 20:57 by Caridad Sánchez MD, DC) Adynamic ileus (Resolved) Anemia due to blood loss, acute (Acute) Benign paroxysmal vertigo Benign paroxysmal vertigo, unspecified ear (Resolved) Cataract (Resolved) O.U 02/24/14; Dr. Martin left extraction 03/10/14; Dr. 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 L hip-mild acetabular spurring 2014 - severe arthritis at facet joints Lumbago Nausea and vomiting (Inactive) Neutrophilic leukocytosis (Acute) Oral ulcer (Resolved) 12/07/16 Peripheral edema (Chronic 07/31/16) Peripheral venous insufficiency (Chronic 12/03/08) edema Pneumonia of right lower lobe due to infectious organism (Resolved) Polyp of colon (Resolved) colonoscopy of 01/09/11-multiple polyps at multiple locations. 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 Very hard to regulate and cannot afford alternatives. Understands the risks. Repeat again - PE. back on anticoagualtion Seizure (Resolved) ? 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 NEG ECHO 2000 Urinary incontinence (Chronic 11/10/14) Vaginal lesion (Resolved) 03/22/16 Venous insufficiency Visual disturbance (Resolved) etiology unclear per -exam of 03/14/11 Vitamin D deficiency Vitamin D deficiency (Chronic 03/11/09) Vulvovaginitis (Resolved) Surgical History (Updated 05/19/20 @ 07:21 by Haydee Morrow MD) Extraction of cataract 02/24/14; LEFT EYE 03/10/14; RIGHT EYE History of bilateral tubal ligation (Resolved) History of laryngectomy (Acute) Ligation of fallopian tube Status post gastrostomy (Acute) Status post tracheostomy (Acute) Family History Mother , 85 Vaginal cancer Father , 74 Heart disease COPD (chronic obstructive pulmonary disease) Sister , 63 Heart disease ASHD/CHF Lung cancer Maternal Grandmother Heart disease Paternal Grandmother Diabetes Son , 40 Substance abuse Heart disease Sister No problems noted. Sister No problems noted. Son RA (rheumatoid arthritis) Daughter No problems noted. Daughter No problems noted. Paternal Grandfather , 80 No problems noted. Social History Smoking/Tobacco Use Status: Former Tobacco Use Quit Date: 06/05/01 Second Hand Exposure: Yes Alcohol Intake: former Drug use: Never Substance use type: does not use Caregiver/Support person: No Household members: none Housing: house Do you need help understanding health information?: Rarely Pets and animals: No Sexually active: No Current gender identity: female What is your relationship status?: How often do you talk on the phone with friends or family?: decline to answer How often do you get together with friends or relatives?: once per week How often do you attend mu-ism or adventist services?: decline to answer Do you belong to any clubs or organized social groups?: no Panel score (0-1 are the most socially isolated patients): 0 What type of physical activity do you participate in: decline to answer Duration: decline to answer Frequency: decline to answer Bethany/Zoroastrian: Voodoo Special bethany needs: No Seatbelt use: always Helmet use: No Drive intox 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 She is watching her son. She is listening closely and responding appropriately. She looks tired but not uncomfortable. Her heart is regular with a loud murmur. I do hear a few scattered rales in her lungs. Her abdomen nontender but I did not do a full examination due to recent surgery. She looked depressed Results Last Vital Signs Temp 97.5 F L 05/24/20 15:15 Pulse 76 05/24/20 18:01 Resp 16 05/24/20 18:01 BP 111/52 L 05/24/20 18:01 Pulse Ox 95 05/24/20 18:01 Labs Result diagrams: 05/25/20 06:20 05/25/20 06:20 Labs: Laboratory Results - last 24 hr 05/24/20 05/24/20 05/24/20 06:30 06:30 06:30 WBC 26.21 H* RBC 2.55 L Hgb 7.7 L Hct 23.3 L MCV 91.4 MCH 30.2 MCHC 33.0 RDW 15.0 H Plt Count 272 MPV 9.2 Immature Gran % 0.4 Neutrophils % 90.6 Lymphocytes % 4.7 Monocytes % 4.2 Eosinophils % 0.0 Basophils % 0.1 Absolute Neutrophils 23.75 H Absolute Lymphocytes 1.23 Absolute Monocytes 1.10 H Absolute Eosinophils 0.00 Absolute Basophils 0.03 Differential Comment Agrees w/ instrument RBC Morphology See below Polychromasia Present Anisocytosis 1+ D-Dimer Sodium 134 L Potassium 2.9 L* Chloride 104 Carbon Dioxide 22.8 Anion Gap 7.2 BUN 17 Creatinine 0.91 Estimated GFR/1.73 m2 59.18 Glucose 206 H Lactate 1.5 H Calcium 7.3 L Phosphorus 3.1 Magnesium 1.9 Total Bilirubin 0.5 AST 22 ALT 18 Alkaline Phosphatase 144 H C-Reactive Protein 12.88 H Total Protein 5.0 L Albumin 1.4 L Patient ABO/Rh Antibody Screen Crossmatch 05/24/20 05/24/20 06:30 08:55 WBC RBC Hgb Hct MCV MCH MCHC RDW Plt Count MPV Immature Gran % Neutrophils % Lymphocytes % Monocytes % Eosinophils % Basophils % Absolute Neutrophils Absolute Lymphocytes Absolute Monocytes Absolute Eosinophils Absolute Basophils Differential Comment RBC Morphology Polychromasia Anisocytosis D-Dimer 2745 H Sodium Potassium Chloride Carbon Dioxide Anion Gap BUN Creatinine Estimated GFR/1.73 m2 Glucose Lactate Calcium Phosphorus Magnesium Total Bilirubin AST ALT Alkaline Phosphatase C-Reactive Protein Total Protein Albumin Patient ABO/Rh B Negative Antibody Screen Negative Crossmatch See Detail
[2020-05-25] VITALS (37 sets, daily range): BP systolic 108–137; BP diastolic 37–87; PULSE 80–97; RESP 13–33; TEMP 34–36.9; O2SAT 93–97
[2020-05-25] MEDS: metroNIDAZOLE 500 MG/100 ML BAG 100 MG IVPB ×3 (03:22→18:22)
[2020-05-25] MEDS: Insulin Aspart 300 UNITS/3 ML PEN SC ×4 (06:11→18:30)
[2020-05-25 07:19] LABS: Abs Immature Grans 0.05 k/cumm (0.0-0.09); Absolute Eosinophil Count 0.11 k/cumm (0.0-0.7); Absolute Lymphocyte Count 1.42 k/cumm (1.2-3.4); Absolute Neutrophil Count 15.24 k/cumm (1.2-6.7); Basophils % 0.1; Eosinophils % 0.6; HCT 30.6 % (36.0-46.0); HGB 9.8 g/dL (12.0-15.5); Immature Grans % 0.3 %; Mean Corpuscular Hemoglobin 29.1 pg (27.0-33.0); Mean Corpuscular Volume 90.8 fL (80-95); Mean Platelet Volume 9.8 fL (8.0-11.0); Monocytes % 5.4; Neutrophils % 85.6; Platelet Count 286 x1000/uL (130-400); RBC 3.37 m/cumm (4.00-5.20); RBC Distribution Width 15.5 % (11.7-14.6)
[2020-05-25 07:21] LABS: Absolute Basophil Count 0.02 k/cumm (0.0-0.2); Absolute Monocyte Count 0.96 k/cumm (0.11-0.7)
[2020-05-25 07:27] LABS: Anion Gap 8.2 mmol/L (3-11); BUN 19 mg/dL (7-18); CO2 23.8 mmol/L (21.0-32.0); CREATININE 0.78 mg/dL (0.55-1.02); Calcium 7.8 mg/dL (8.5-10.1); Chloride 107 mmol/L (98-107); Glucose 227 mg/dL (74-106); Magnesium 2.1 mg/dL (1.8-2.4); PHOSPHORUS 3.4 mg/dL (2.6-4.7); Potassium 4.3 mmol/L (3.5-5.1); Sodium 139 mmol/L (136-145)
--- NOTE | 2020-05-25 07:44 | CMPROGNOTE_ITS ---
- If Service Date Differs Date of service: 05/25/20 Time of Service: 07:44 Care Management Progress Note S/O: Lisa is alert and engaged, CM met with her son Sb who is very concerned that Lisa may be forced to make a decision about her care and end of life choices. CM provided listening and reinforced that Lisa is able to make her own decisions regarding her care and the important task is to allow her to make her own choices. Lisa and the family is clear that they want her to have a quality of life that she enjoys. A: Lisa is an 80 year old woman admitted on 05/14/20 with a partial SBO P: Lisa will be discharged home when she is medically ready. She has caregiver through choices for care is addition to her family support. She is post op from a partial bowel resection. If she does go home, she will need resumption of home health orders for nursing and [employer], with the possibility of PT and OT if needed. CM confirmed with family absolutely no SNF facility. CM will continue to follow and assess for ongoing discharge needs.
[2020-05-25] MEDS: Ferrous Sulfate 44 MG/ML Liquid 325 MG NG (09:45)
[2020-05-25] MEDS: Metoprolol CR 25 MG TABCR 12.5 MG PO ×2 (09:49→19:54)
[2020-05-25] MEDS: Furosemide 40 MG TAB PO (09:49)
[2020-05-25] MEDS: Normal Saline Flush 10 ML SYR IVP ×3 (10:00→18:20)
--- NOTE | 2020-05-25 10:32 | W.NUTRFU ---
Date of service: 05/25/20 Time of Service: 10:32 Nutritional Follow up NOTE: Pt continues with TPN as ordered. Diet advanced to Clear Liquid diet with ensure clear BID no n/v reported. Tube feeding initiated 05/24/20 at 8 pm, tolerating Jevity 1.2 @50cc well however with more frequent watery stools most likely secondary to c. diff. Continue to monitor stools, current tube feeding contains 30 grams of soluable fiber which should help firm up stool. Recommend continue tube feeding Jevity 1.2 until reach goal rate of 70/cc/hour with fluid boluses of 250 ml q 6 hours. d/c TPN as no longer necessary. Continue Jevity 1.2 goal rate 70 cc/hour with flushes of 250 ml q 6. Supplement with 1 oz liquid protein BID via g tube. Will monitor tolerance, labs and make adjustments prn. Time Spent in Nutritional Counseling and Treatment: 0 time spent face to face
--- NOTE | 2020-05-25 12:25 | PT.INTREAT ---
Date of service: 05/25/20 Time of Service: 12:25 PT Notes Visit Reasons: SMALL BOWEL OBSTRUCTION Inpatient Physical Therapy Treatment Note [facility] Date: 05/25/20 PRECAUTIONS: Fall, activity as tolerated SUBJECTIVE: Lisa is agreeable to participating in PT, she reports that she is feeling a little better today. OBJECTIVE: Patient was incontinent of stool in both a.m. and p.m. requiring max assist for care PAIN: Patient c/o back pain with [id number] transfer BED MOBILITY/TRANSFERS Supine-sit: Mod A x2 Sit-stand: Min A x2 in a.m.; Min A x1 in p.m. Stand-sit: CGA A x2 in a.m.; CGA x1 in p.m. Bed-Chair: CGA x2 GAIT: Assistive Device: FWW Weight bearing: Full Assist: CGA x2 in a.m.; CGA x1 in p.m. Distance: 5' in a.m.; 1 step F/B in p.m. Deviation: Cueing for FWW mechanics in a.m. THEREX: Static stand 1x1 minute and 1x5 minutes tolerating SBA in a.m.; static standing 1 x 10 minutes with CGA, patient also performed mini squats x5 and cervical flexion/extension x7 and standing, and ankle pumps x10 in seated position in p.m. ASSESSMENT: Patient tolerated session well with c/o back pain with [id number] transfer. She was able to tolerate increased static standing time, requiring SBA only for safety. PLAN: Continue with PT's POC TREATMENT CODE/TIME: Session 1: 45 minutes; [id number] x3 Session 2: 55 minutes; [id number] x3, [id number]
--- NOTE | 2020-05-25 15:30 | W.NUTRFU ---
Date of service: 05/25/20 Time of Service: 15:30 Nutritional Follow up NOTE: Nursing reports pt tolerating Jevity 1.2 @70 cc/hour (goal rate), and MD wants to taper TPN as now meeting nutrient needs via gut. Current Tube feeding (and flushes of 250 ml q 6 hours) @ goal rate (70cc/hr) will provide 280 g carbohydrate, 91 g protein, 63 g fat and 2330 ml free fluid. TPN order providing 200 g carbohydrate, 82 g protein, 55 g fat. Expect glycemic control will be maintained with d/c of TPN as goal rate of enteral feeding achieved. If tapering of TPN needed, recommend decrease by 10 cc/hour with complete d/c of TPN over 8 hours. Check BS q 6hours. will follow prn. Time Spent in Nutritional Counseling and Treatment: 0 time spent face to face
--- NOTE | 2020-05-25 16:26 | PGE_ITS ---
Date of Service Date of service: 05/25/20 Time of Service: 16:27 Assessment and Plan Assessment and plan (1) Neutrophilic leukocytosis: Status: Acute Assessment and plan: Etiology is C. 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 risks outweigh benefits. Patient does have a history of A. fib. Continue with prophilactic lovenox (4) Hypokalemia: Status: Resolved Assessment and plan: normal on todays labs (5) Tracheostomy care: Status: Acute Assessment and plan: A\\ Tracheostomy site intact P\\ Continue current management (6) COPD (chronic obstructive pulmonary disease): Status: Chronic Assessment and plan: No respiratory issues Qualifiers: COPD type: unspecified COPD Qualified Code(s): J44.9 - Chronic obstructive pulmonary disease, unspecified (7) Urinary incontinence: Status: Chronic Assessment and plan: A\\ Curry in place P\\ Hopefully once she is a bit stronger we will remove the curry Qualifiers: Urinary Incontinence type: other incontinence Qualified Code(s): N39.498 - Other specified urinary incontinence (8) Peripheral venous insufficiency: Status: Chronic Assessment and plan: A\\ Elevated D-dimer most likely an inflammatory reaction but with hx of A-fib and currently not anticoagulated completely. US ordered. Preliminary report - no DVT appreciated (9) Low back pain: Status: Chronic Qualifiers: Back pain laterality: bilateral Chronicity: chronic Sciatica presence: without sciatica Qualified Code(s): M54.5 - Low back pain; G89.29 - Other chronic pain (10) Hyperlipidemia: Status: Chronic Qualifiers: Hyperlipidemia type: unspecified Qualified Code(s): E78.5 - Hyperlipidemia, unspecified (11) Colitis due to Clostridium difficile: Status: Acute Assessment and plan: P.o. Vanco and IV Flagyl Improving (12) Protein-calorie malnutrition, mild: Status: Acute Assessment and plan: Continue TPN and clear liquids as tolerated including a clear liquid boost. Start TF with Jevity. If able to tolerate T-feeding. Weaning TP off. Patient tolerating TF at goal of 70 cc/hr. Also getting a protein boost BID as well as IRON (13) Decubitus ulcer, stage I: Status: Acute Assessment and plan: Mepilex. Reposition every 2 hours. Pressure-relief mattress arrived today Qualifiers: Pressure injury location: sacral region Qualified Code(s): L89.151 - Pressure ulcer of sacral region, stage 1 (14) Anemia of chronic disease: Status: Acute Assessment and plan: Recieved 2 units of blood yesterday Re-check Hgb in am (15) Palliative care patient: Status: Acute Assessment and plan: Appreciate the Palliative care consult. Patient is a DNR/ DNI. She agreed yesterday to give it a couple of days and if she didn't feel better then she would like to go home on Hospice. Subjective Subjective Interval history since last seen: I saw Lisa 2 x today once this morning and now. She was doing well this am. She looked more alert. She was started on TFeeding last night. She is tolerating TF at 70 cc/hr. We are slowly decreasing the TPN. She has had no N/V or abdominal pain. She still is having loose stools but less mucus per nursing staff. No fevers Exam Const General: cooperative, comfortable and no acute distress Orientation: alert [facility] Head: normocephalic and atraumatic Other: Tracheostomy in good position. skin around tracheostomy looks intact Resp Effort & Inspection: normal respiratory effort Auscultation: clear to auscultation bilaterally Cardio Rate: regular rate Rhythm: regular rhythm Heart Sounds: no gallops, no murmurs and no rubs GI Inspection: incision (c/d/i) Palpation: soft, no hepatosplenomegaly and nontender Extrem Other: pitting edema of hands and legs Objective Objective Clinical Data: Abnormal lab results 05/25/20 05/25/20 Range/Units 06:20 06:20 WBC 17.80 H D (4.4-10.8) k/cumm RBC 3.37 L (4.00-5.20) m/cumm Hgb 9.8 L D (12.0-15.5) g/dL Hct 30.6 L D (36.0-46.0) % RDW 15.5 H (11.7-14.6) % Absolute Neutrophils 15.24 H (1.2-6.7) k/cumm Absolute Monocytes 0.96 H (0.11-0.7) k/cumm BUN 19 H (7-18) mg/dL Glucose 227 H (74-106) mg/dL Calcium 7.8 L (8.5-10.1) mg/dL Vital Signs Temperature 97.0 F L 05/25/20 13:00 Temperature Source Temporal Artery Scan 05/25/20 13:00 Pulse 90 05/25/20 13:01 Pulse Rhythm Regular 05/18/20 10:26 Pulse 95 H 05/25/20 14:03 Respiratory Rate 18 05/25/20 14:03 Respiratory Effort 05/25/20 13:00 Respiratory Depth Normal 05/25/20 13:00 Respiratory Pattern Normal 05/25/20 13:00 Blood Pressure 128/48 L 05/25/20 13:01 Blood Pressure Mean 69 05/25/20 13:01 Blood Pressure Position Supine 05/25/20 13:00 Pulse Oximetry 97 05/25/20 14:03 Oxygen Delivery Method Hi Flow Nasal Cannula 05/25/20 13:00 Oxygen Flow Rate 30 05/25/20 12:34 Fraction of Inspired Oxygen (FIO2) 21 05/25/20 13:00 Pain Level 0 05/25/20 13:00 Comment 05/18/20 08:00 Intake & Output 05/24/20 05/25/20 05/25/20 23:59 11:59 23:59 Intake Total 996.666 / 2204.666 2345.686 / 2917.000 571.314 / 2917.000 Output Total 1550 / 3300 755 / 1335 580 / 1335 Balance -553.334 / -6750.253 8397.686 / 1582.000 -8.686 / 1582.000 Weight 196 lb 3.382 oz Intake: IV 676.666 / 2557.121 8206.686 / 2365.000 403.314 / 2365.000 Oral 40 / 40 Blood Product 300 / 300 Rbc Leuko Reduced Unit 300 / 300 [id number] Intake, Tube Feeding Amount 384 / 512 128 / 512 Output: Gastric Drainage 0 / 50 90 / 90 Lt Upper Quadrant 0 / 50 90 / 90 Urine 1550 / 3250 600 / 1100 500 / 1100 Output, Residual 65 / 145 80 / 145 Other: Urine Color Light Andrew Light Andrew Light Andrew Urine Appearance Clear Clear Clear Comment curry draining pale colored urine curry draining andrew urine curry draining andrew urine Stool Size Copious Copious Stool Characteristics Liquid Liquid Brown Mucoid Brown Laboratory Results WBC 17.80 k/cumm (4.4-10.8) H D 05/25/20 06:20 RBC 3.37 m/cumm (4.00-5.20) L 05/25/20 06:20 Hgb 9.8 g/dL (12.0-15.5) L D 05/25/20 06:20 Hct 30.6 % (36.0-46.0) L D 05/25/20 06:20 MCV 90.8 fL (80-95) 05/25/20 06:20 MCH 29.1 pg (27.0-33.0) 05/25/20 06:20 MCHC 32.0 g/dL (32.0-36.0) 05/25/20 06:20 RDW 15.5 % (11.7-14.6) H 05/25/20 06:20 Plt Count 286 x1000/uL (130-400) 05/25/20 06:20 MPV 9.8 fL (8.0-11.0) 05/25/20 06:20 Immature Gran % 0.3 % 05/25/20 06:20 Neutrophils % 85.6 05/25/20 06:20 Band Neutrophils % 5.0 % 05/23/20 05:45 Lymphocytes % 8.0 05/25/20 06:20 Monocytes % 5.4 05/25/20 06:20 Eosinophils % 0.6 05/25/20 06:20 Basophils % 0.1 05/25/20 06:20 Absolute Neutrophils 15.24 k/cumm (1.2-6.7) H 05/25/20 06:20 Absolute Lymphocytes 1.42 k/cumm (1.2-3.4) 05/25/20 06:20 Absolute Monocytes 0.96 k/cumm (0.11-0.7) H 05/25/20 06:20 Absolute Eosinophils 0.11 k/cumm (0.0-0.7) 05/25/20 06:20 Absolute Basophils 0.02 k/cumm (0.0-0.2) 05/25/20 06:20 Differential Comment Agrees w/ instrument 05/24/20 06:30 RBC Morphology See below 05/24/20 06:30 Polychromasia Present 05/24/20 06:30 Hypochromasia 1+ 05/23/20 05:45 Anisocytosis 1+ 05/24/20 06:30 D-Dimer 2745 ng/mlFEU (<500) H 05/24/20 06:30 Sodium 139 mmol/L (136-145) 05/25/20 06:20 Potassium 4.3 mmol/L (3.5-5.1) D 05/25/20 06:20 Chloride 107 mmol/L (98-107) 05/25/20 06:20 Carbon Dioxide 23.8 mmol/L (21.0-32.0) 05/25/20 06:20 Anion Gap 8.2 mmol/L (3-11) 05/25/20 06:20 BUN 19 mg/dL (7-18) H 05/25/20 06:20 Creatinine 0.78 mg/dL (0.55-1.02) 05/25/20 06:20 Estimated GFR/1.73 m2 >= 60.00 (mL/min/1.73m2) 05/25/20 06:20 Glucose 227 mg/dL (74-106) H 05/25/20 06:20 Lactate 1.5 mmol/L (0.6-1.4) H 05/24/20 06:30 Calcium 7.8 mg/dL (8.5-10.1) L 05/25/20 06:20 Phosphorus 3.4 mg/dL (2.6-4.7) 05/25/20 06:20 Magnesium 2.1 mg/dL (1.8-2.4) 05/25/20 06:20 Iron 138 ug/dL (50-170) 05/21/20 06:30 TIBC 141 ug/dL (250-450) L 05/21/20 06:30 Transferrin % Sat 98 % (15-50) H 05/21/20 06:30 Total Bilirubin 0.5 mg/dL (0.2-1.0) 05/24/20 06:30 AST 22 U/L (15-37) 05/24/20 06:30 ALT 18 U/L (14-59) 05/24/20 06:30 Alkaline Phosphatase 144 U/L (46-116) H 05/24/20 06:30 Troponin I < 0.05 ng/mL (<0.06) 05/14/20 19:15 C-Reactive Protein 12.88 mg/dL (0.0-0.3) H 05/24/20 06:30 Total Protein 5.0 g/dL (6.4-8.2) L 05/24/20 06:30 Albumin 1.4 g/dL (3.4-5.0) L 05/24/20 06:30 Lipase 56 U/L (73-393) 05/23/20 05:45 Urine Color Yellow (Yellow) 05/23/20 14:10 Urine Clarity Clear (Clear) 05/23/20 14:10 Urine pH 7.0 (5-8) 05/23/20 14:10 Ur Specific [place] 1.015 (1.005-1.025) 05/23/20 14:10 Urine Protein Negative mg/dL (Negative) 05/23/20 14:10 Urine Ketones Negative mg/dL (Negative) 05/23/20 14:10 Urine Blood Negative (Negative) 05/23/20 14:10 Urine Nitrite Negative (Negative) 05/23/20 14:10 Urine Bilirubin Negative (Negative) 05/23/20 14:10 Urine Urobilinogen 0.2 EU/dL (Up TO 0.2) 05/23/20 14:10 Ur Leukocyte Esterase Negative (Negative) 05/23/20 14:10 Urine Glucose Negative mg/dL (Negative) 05/23/20 14:10 COVID-19 PCR Negative (Negative) 05/14/20 17:30 Nasopharyn COVID-19 PCR Not Applicable 05/14/20 17:30 Ref Test Perform Site [facility] lab 05/14/20 17:30 Patient ABO/Rh B Negative 05/24/20 08:55 Antibody Screen Negative 05/24/20 08:55 Crossmatch See Detail 05/24/20 08:55
[2020-05-25] MEDS: Pantoprazole 40 MG VIAL IVP (18:24)
[2020-05-25] MEDS: Normal Saline 500 ML 30 ML IV (18:26)
[2020-05-25] MEDS: Protein Nutritional Supplement 16 GM 1 OUNCE PACKET JT (19:54)
--- NOTE | 2020-05-25 21:37 | NUR.NOTE ---
Daughter Jasmin called reports concerns about pt increasing weight and no inpatient use of home med lasix 40mgbid. assured daughter that [employer] are monitoring lung sounds and will quickly respond to fluid overload in pt. Please review with daytime hospitalist per daughters request
[2020-05-26] VITALS (12 sets, daily range): BP systolic 105–139; BP diastolic 49–64; PULSE 79–103; RESP 16–24; TEMP 36.4–36.7; O2SAT 94–98
[2020-05-26] MEDS: Insulin Aspart 300 UNITS/3 ML PEN SC ×2 (00:18→18:35)
[2020-05-26] MEDS: metroNIDAZOLE 500 MG/100 ML BAG 100 MG IVPB ×3 (01:20→18:38)
[2020-05-26] MEDS: Normal Saline Flush 10 ML SYR IVP ×3 (06:28→18:37)
[2020-05-26 07:34] LABS: Abs Immature Grans 0.06 k/cumm (0.0-0.09); HGB 10.4 g/dL (12.0-15.5); Mean Corp. HGB Concentration 32.5 g/dL (32.0-36.0); Mean Corpuscular Hemoglobin 29.6 pg (27.0-33.0); Mean Corpuscular Volume 91.2 fL (80-95); Mean Platelet Volume 9.6 fL (8.0-11.0); Platelet Count 317 x1000/uL (130-400); RBC 3.51 m/cumm (4.00-5.20); RBC Distribution Width 15.6 % (11.7-14.6); White Blood Cell Count 11.98 k/cumm (4.4-10.8)
[2020-05-26 07:45] LABS: Anion Gap 7.6 mmol/L (3-11); BUN 19 mg/dL (7-18); CO2 24.4 mmol/L (21.0-32.0); CREATININE 0.76 mg/dL (0.55-1.02); Calcium 7.9 mg/dL (8.5-10.1); Chloride 108 mmol/L (98-107); Glucose 157 mg/dL (74-106); Magnesium 2.1 mg/dL (1.8-2.4); Potassium 3.8 mmol/L (3.5-5.1); Sodium 140 mmol/L (136-145)
--- NOTE | 2020-05-26 07:53 | PDOC.CMPRO ---
- If Service Date Differs Date of service: 05/26/20 Time of Service: 07:53 Care Management Progress Note S/O: CM met with Lisa in the room she is sitting up in her recliner with smiling and watching television. She states her breathing feels good, she reports she is feeling better and was able to work with PT. She states she wants to continue treatment she has only had two small bowel movements and she is tolerating her G-tube feedings. She states her goals are to feel better and return home with her natural and hired supports. CM provided update to both daughter Trini and Jasmin and requested Trini bring in some white padded underwear at the request of Lisa. Anticipate that Lisa will transfer to the medical surgical unit at some point and CM will provider the update to family. A: Lisa is an 80 year old woman admitted on 05/14/20 with a partial SBO status post surgical intervention P: Lisa will be discharged home when she is medically ready. She has caregiver through choices for care is addition to her family support. She is post op from a partial bowel resection. If she does go home, she will need resumption of home health orders for nursing and [employer], with the possibility of PT and OT if needed. CM confirmed with family absolutely no SNF facility. CM will continue to follow and assess for ongoing discharge needs.
[2020-05-26 08:08] LABS: Absolute Eosinophil Count 0.24 k/cumm (0.0-0.7); Absolute Lymphocyte Count 0.84 k/cumm (1.2-3.4); Diff Comment Manual Differential
[2020-05-26 08:10] LABS: RBC Morphology Normal
[2020-05-26] MEDS: Protein Nutritional Supplement 16 GM 1 OUNCE PACKET JT ×2 (08:10→21:19)
[2020-05-26] MEDS: Furosemide 40 MG TAB PO (08:11)
[2020-05-26] MEDS: Metoprolol CR 25 MG TABCR 12.5 MG PO ×2 (08:13→21:18)
[2020-05-26] MEDS: Ferrous Sulfate 44 MG/ML Liquid 325 MG NG (08:14)
--- NOTE | 2020-05-26 08:37 | W.PM.PROGNOT ---
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 (3) History of CVA (cerebrovascular accident): Status: Acute Assessment and plan: epixiban restarted (4) Hypokalemia: Status: Resolved Assessment and plan: normal on todays labs (5) Tracheostomy care: Status: Acute Assessment and plan: A\\ Tracheostomy site intact P\\ Continue current management (6) COPD (chronic obstructive pulmonary disease): Status: Chronic Assessment and plan: No respiratory issues Qualifiers: COPD type: unspecified COPD Qualified Code(s): J44.9 - Chronic obstructive pulmonary disease, unspecified (7) Urinary incontinence: Status: Chronic Assessment and plan: D/C curry in am Qualifiers: Urinary Incontinence type: other incontinence Qualified Code(s): N39.498 - Other specified urinary incontinence (8) Peripheral venous insufficiency: Status: Chronic Assessment and plan: A\\ Elevated D-dimer most likely an inflammatory reaction but with hx of A-fib and currently not anticoagulated completely. US ordered. Preliminary report - no DVT appreciated (9) Low back pain: Status: Chronic Qualifiers: Back pain laterality: bilateral Chronicity: chronic Sciatica presence: without sciatica Qualified Code(s): M54.5 - Low back pain; G89.29 - Other chronic pain (10) Hyperlipidemia: Status: Chronic Qualifiers: Hyperlipidemia type: unspecified Qualified Code(s): E78.5 - Hyperlipidemia, unspecified (11) Colitis due to Clostridium difficile: Status: Acute Assessment and plan: P.o. Vanco and IV Flagyl Improving (12) Protein-calorie malnutrition, mild: Status: Acute Assessment and plan: Stop Tfeeding during the day. Hopefully this will help with her diarrhea If she doesn't eat much will give her tube feeding at night (13) Decubitus ulcer, stage I: Status: Acute Assessment and plan: Mepilex. Reposition every 2 hours. Pressure-relief mattress arrived today Qualifiers: Pressure injury location: sacral region Qualified Code(s): L89.151 - Pressure ulcer of sacral region, stage 1 (14) Anemia of chronic disease: Status: Acute Assessment and plan: Recieved 2 units of blood yesterday Re-check Hgb in am (15) Palliative care patient: Status: Acute Assessment and plan: Appreciate the Palliative care consult. Patient is a DNR/ DNI. She agreed yesterday to give it a couple of days and if she didn't feel better then she would like to go home on Hospice. (16) Discharge planning issues: Status: Acute Assessment and plan: A\\ Patient to go home with family with 24 hour care. Will need home PT Subjective Subjective Interval history since last seen: Lisa looks good today. She is up in the chair smiling. She complains of some crampy abdominal pain. Continues to have diarrhea Exam HENMT Head: normocephalic and atraumatic Resp Effort & Inspection: normal respiratory effort Auscultation: clear to auscultation bilaterally Cardio Rate: regular rate Rhythm: regular rhythm GI Inspection: incision (c/d/i) Palpation: soft, no hepatosplenomegaly and nontender Objective Objective Clinical Data: Abnormal lab results 05/26/20 05/26/20 Range/Units 07:13 07:13 WBC 11.98 H D (4.4-10.8) k/cumm RBC 3.51 L (4.00-5.20) m/cumm Hgb 10.4 L (12.0-15.5) g/dL Hct 32.0 L (36.0-46.0) % RDW 15.6 H (11.7-14.6) % Absolute Neutrophils 10.30 H (1.2-6.7) k/cumm Absolute Lymphocytes 0.84 L (1.2-3.4) k/cumm Chloride 108 H (98-107) mmol/L BUN 19 H (7-18) mg/dL Glucose 157 H (74-106) mg/dL Calcium 7.9 L (8.5-10.1) mg/dL Vital Signs Temperature 97.5 F L 05/26/20 07:45 Temperature Source Temporal Artery Scan 05/26/20 07:45 Pulse 87 05/26/20 07:27 Pulse Rhythm Regular 05/18/20 10:26 Pulse 92 H 05/26/20 07:27 Respiratory Rate 22 05/26/20 07:27 Respiratory Effort 05/25/20 21:07 Respiratory Depth Normal 05/25/20 21:07 Respiratory Pattern Normal 05/25/20 21:07 Blood Pressure 139/49 L 05/26/20 07:27 Blood Pressure Mean 69 05/26/20 07:27 Blood Pressure Position Sitting 05/26/20 07:45 Pulse Oximetry 95 05/26/20 07:45 Oxygen Delivery Method Hi Flow System 05/26/20 07:45 Oxygen Flow Rate 30 05/26/20 07:45 Fraction of Inspired Oxygen (FIO2) 21 05/26/20 07:45 Pain Level 0 05/26/20 07:45 Comment 05/18/20 08:00 Intake & Output 05/25/20 05/25/20 05/26/20 11:59 23:59 11:59 Intake Total 2345.686 / 3994.433 1648.747 / 3994.433 382 / 382 Output Total 755 / 2550 1795 / 2550 1385 / 1385 Balance 1590.686 / 1444.433 -146.253 / 1444.433 -1003 / -1003 Weight 196 lb 3.382 oz Intake: IV 1961.686 / 3020.433 1058.747 / 3020.433 Oral 80 / 80 Intake, Tube Feeding Amount 384 / 894 510 / 894 382 / 382 Output: Gastric Drainage 90 / 90 Lt Upper Quadrant 90 / 90 Urine 600 / 1625 1025 / 1625 600 / 600 Output, Residual 65 / 835 770 / 835 785 / 785 Other: Urine Color Light Andrew Pale Yellow Urine Appearance Clear Clear Clear Comment curry draining andrew urine curry draining andrew urine curry draining andrew urine Stool Occult Blood Negative Negative Stool Size Copious Moderate Moderate Stool Characteristics Liquid Liquid Liquid Brown Mucoid Laboratory Results WBC 11.98 k/cumm (4.4-10.8) H D 05/26/20 07:13 RBC 3.51 m/cumm (4.00-5.20) L 05/26/20 07:13 Hgb 10.4 g/dL (12.0-15.5) L 05/26/20 07:13 Hct 32.0 % (36.0-46.0) L 05/26/20 07:13 MCV 91.2 fL (80-95) 05/26/20 07:13 MCH 29.6 pg (27.0-33.0) 05/26/20 07:13 MCHC 32.5 g/dL (32.0-36.0) 05/26/20 07:13 RDW 15.6 % (11.7-14.6) H 05/26/20 07:13 Plt Count 317 x1000/uL (130-400) 05/26/20 07:13 MPV 9.6 fL (8.0-11.0) 05/26/20 07:13 Immature Gran % 0.0 % 05/26/20 07:13 Neutrophils % 86.0 05/26/20 07:13 Band Neutrophils % 5.0 % 05/23/20 05:45 Lymphocytes % 7.0 05/26/20 07:13 Monocytes % 5.0 05/26/20 07:13 Eosinophils % 2.0 05/26/20 07:13 Basophils % 0.0 05/26/20 07:13 Absolute Neutrophils 10.30 k/cumm (1.2-6.7) H 05/26/20 07:13 Absolute Lymphocytes 0.84 k/cumm (1.2-3.4) L 05/26/20 07:13 Absolute Monocytes 0.60 k/cumm (0.11-0.7) 05/26/20 07:13 Absolute Eosinophils 0.24 k/cumm (0.0-0.7) 05/26/20 07:13 Absolute Basophils 0.00 k/cumm (0.0-0.2) 05/26/20 07:13 Differential Comment Manual differential 05/26/20 07:13 RBC Morphology Normal 05/26/20 07:13 Polychromasia Present 05/24/20 06:30 Hypochromasia 1+ 05/23/20 05:45 Anisocytosis 1+ 05/24/20 06:30 D-Dimer 2745 ng/mlFEU (<500) H 05/24/20 06:30 Sodium 140 mmol/L (136-145) 05/26/20 07:13 Potassium 3.8 mmol/L (3.5-5.1) 05/26/20 07:13 Chloride 108 mmol/L (98-107) H 05/26/20 07:13 Carbon Dioxide 24.4 mmol/L (21.0-32.0) 05/26/20 07:13 Anion Gap 7.6 mmol/L (3-11) 05/26/20 07:13 BUN 19 mg/dL (7-18) H 05/26/20 07:13 Creatinine 0.76 mg/dL (0.55-1.02) 05/26/20 07:13 Estimated GFR/1.73 m2 >= 60.00 (mL/min/1.73m2) 05/26/20 07:13 Glucose 157 mg/dL (74-106) H 05/26/20 07:13 Lactate 1.5 mmol/L (0.6-1.4) H 05/24/20 06:30 Calcium 7.9 mg/dL (8.5-10.1) L 05/26/20 07:13 Phosphorus 3.4 mg/dL (2.6-4.7) 05/25/20 06:20 Magnesium 2.1 mg/dL (1.8-2.4) 05/26/20 07:13 Iron 138 ug/dL (50-170) 05/21/20 06:30 TIBC 141 ug/dL (250-450) L 05/21/20 06:30 Transferrin % Sat 98 % (15-50) H 05/21/20 06:30 Total Bilirubin 0.5 mg/dL (0.2-1.0) 05/24/20 06:30 AST 22 U/L (15-37) 05/24/20 06:30 ALT 18 U/L (14-59) 05/24/20 06:30 Alkaline Phosphatase 144 U/L (46-116) H 05/24/20 06:30 Troponin I < 0.05 ng/mL (<0.06) 05/14/20 19:15 C-Reactive Protein 12.88 mg/dL (0.0-0.3) H 05/24/20 06:30 Total Protein 5.0 g/dL (6.4-8.2) L 05/24/20 06:30 Albumin 1.4 g/dL (3.4-5.0) L 05/24/20 06:30 Lipase 56 U/L (73-393) 05/23/20 05:45 Urine Color Yellow (Yellow) 05/23/20 14:10 Urine Clarity Clear (Clear) 05/23/20 14:10 Urine pH 7.0 (5-8) 05/23/20 14:10 Ur Specific [place] 1.015 (1.005-1.025) 05/23/20 14:10 Urine Protein Negative mg/dL (Negative) 05/23/20 14:10 Urine Ketones Negative mg/dL (Negative) 05/23/20 14:10 Urine Blood Negative (Negative) 05/23/20 14:10 Urine Nitrite Negative (Negative) 05/23/20 14:10 Urine Bilirubin Negative (Negative) 05/23/20 14:10 Urine Urobilinogen 0.2 EU/dL (Up TO 0.2) 05/23/20 14:10 Ur Leukocyte Esterase Negative (Negative) 05/23/20 14:10 Urine Glucose Negative mg/dL (Negative) 05/23/20 14:10 COVID-19 PCR Negative (Negative) 05/14/20 17:30 Nasopharyn COVID-19 PCR Not Applicable 05/14/20 17:30 Ref Test Perform Site [facility] lab 05/14/20 17:30 Patient ABO/Rh B Negative 05/24/20 08:55 Antibody Screen Negative 05/24/20 08:55 Crossmatch See Detail 05/24/20 08:55
--- NOTE | 2020-05-26 10:35 | PT.INPN ---
Date of service: 05/26/20 Time of Service: 10:35 PT Notes Visit Reasons: SMALL BOWEL OBSTRUCTION Inpatient Physical Therapy Progress Note Date: 05/26/2020 Dates of Service: 05/19/2020 through 05/26/2020 Referring Doctor: Haydee Morrow MD PT Orders: PT CONSULT: Eval/treat Precautions: Fall. Standard. Activity as tolerated. Patient Profile/Admitting Diagnosis: Patient is an 80-year-old female with a past medical history history of pulmonary embolism, squamous cell carcinoma, vocal cord carcinoma, and s/p radiation, s/p laryngectomy and thyroidectomy, and tracheostomy placement. She presented to the ED on 05/14/2020 with chief presentation of vomiting and abdominal pain. Patient was diagnosed with partial obstruction of small intestine and is status post laparoscopy and small bowel resection on postoperative day 1. PMHX: Medical History Adynamic ileus (Resolved) Benign paroxysmal vertigo Benign paroxysmal vertigo, unspecified ear (Resolved) Cataract (Resolved) O.U 02/24/14; Dr. Martin left extraction 03/10/14; Dr. Martin right extraction Cellulitis (Resolved) 07/31/16 both lower extremity Cerebral arteriovenous malformation (Chronic) Cerebral vascular malformation Cerebrovascular accident (CVA) (Chronic 01/20/16) seen on previous CT Scans 2015 Decreased muscle tone (Chronic) ANAL SPINCTER Deficient knowledge of tracheostomy home care (Inactive) Depression Depressive disorder (Chronic) DVT prophylaxis (Inactive) Dysphagia (Inactive 01/01/18) Essential hypertension (Chronic 10/31/13) Hip pain (Chronic) bilateral 2014 - mild arthritis right History of tobacco use (Resolved) 2 ppd; quit in 2000 Hyperlipidemia Hyperlipidemia (Chronic 04/15/13) Hypertension Leukocytosis (Inactive) Low back pain (Chronic 03/04/06) L 2-3 disc narrowing. L hip-mild acetabular spurring 2014 - severe arthritis at facet joints Lumbago Nausea and vomiting (Inactive) Oral ulcer (Resolved) 12/07/16 Peripheral edema (Chronic 07/31/16) Peripheral venous insufficiency (Chronic 12/03/08) edema Pneumonia of right lower lobe due to infectious organism (Resolved) Polyp of colon (Resolved) colonoscopy of 01/09/11-multiple polyps at multiple locations. 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 Very hard to regulate and cannot afford alternatives. Understands the risks. Repeat again - PE. back on anticoagualtion Seizure (Resolved) ? 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 NEG ECHO 2000 Urinary incontinence (Chronic 11/10/14) Vaginal lesion (Resolved) 03/22/16 Venous insufficiency Visual disturbance (Resolved) etiology unclear per -exam of 03/14/11 Vitamin D deficiency Vitamin D deficiency (Chronic 03/11/09) Vulvovaginitis (Resolved) Surgical History Extraction of cataract 02/24/14; LEFT EYE 03/10/14; RIGHT EYE History of bilateral tubal ligation (Resolved) Ligation of fallopian tube Social History/Home Situation: Lisa has 24/7 caregivers who provide all the assistance that she needs. She requires supervision for all mobility ADL performance using the 4 wheeled walker. Equipment Owned/DME: four-wheeled walker Subjective: Patient required encouragement to participate in therapy today as she states that her surgical incision is really giving her discomfort. Nurse Joycelyn reassured that she will be given her pain pill to minimize pain level as soon as walking activity is done. Patient was also advised that a wheelchair will be following behind her in case the pain gets too much so she could sit down and rest. Objective: General Observation: O2 on 2 L/min via tracheostomy tube on 30 L with 26% oxygen with humidification. Telemetry monitoring in place. Edwards catheter in place. Wound dressing over surgical incision. B UE swelling with the right more affected than the left. Mental Status: Patient is non-verbal. She is able to mouth some words, but often requires white board/paper and pen to write. Pain: 6-7/10 in abdominal area ROM: Right Upper Extremity: Shoulder Flexion allows up to 90 degrees. Shoulder abduction allows up to 90 degrees. Elbow flexion WFL. Wrist flexion WFL. Opening and closing of hand WFL. Left Upper Extremity: Shoulder Flexion allows up to 90 degrees. Shoulder abduction allows up to 90 degrees. Elbow flexion WFL. Wrist flexion WFL. Opening and closing of hand WFL. Right Lower Extremity: Hip flexion WFL. Hip abduction WFL. Knee flexion WFL. Ankle dorsiflexion WFL. Ankle plantarflexion WFL. Left Lower Extremity: Hip flexion WFL. Hip abduction WFL. Knee flexion WFL. Ankle dorsiflexion WFL. Ankle plantarflexion WFL. Strength: Right Upper Extremity: Shoulder flexors 3-/5. Shoulder abductors 3+/5. Elbow flexors 4-/5. Elbow extensors 4-5. Phosphorus Processing Supervisor strong. Left Upper Extremity: Shoulder flexors 3-/5. Shoulder abductors 3+/5. Elbow flexors 4-/5. Elbow extensors 4-/5. Phosphorus Processing Supervisor strong. Right Lower Extremity: Hip flexors 3+/5. Hip abductors 4-/5. Knee flexors 4-/5. Knee extensors 4-/5. Ankle dorsiflexors 4-/5. Ankle plantarflexors 4-/5. Left Lower Extremity: Hip flexors 3+/5. Hip abductors 4-/5. Knee flexors 4-/5. Knee extensors 4-/5. Ankle dorsiflexors 4-/5. Ankle plantarflexors 4-/5. Sensation: Intact as to pain and pressure on bilateral lower extremities. Bed Mobility/Transfers: Sit to stand from bedside recliner minimal assist Stand to sit standby assist Bed to chair standby assist Chair to bed minimal assist Gait: 80 feet using front wheeled walker with full weight bearing requiring standby assist and IV pole management of PT and wheelchair follow of nurse Hirsch. Step through gait pattern. No diarrhea episode during ambulation. Denies dizziness, chest pain, and lightheadedness but did report significant pain in abdominal area which nurse Joycelyn knows about. Balance: Static Sitting: Good Dynamic Sitting: Good Static Standing: Fair Dynamic Standing: Fair Special Tests: Mobility Limitations Standardized Measure [employer] AM-PAC 6 clicks Basic Mobility Inpatient Short Form: Raw Score: 18 CMS Score: 47% deficit Informed Consent/Education: Patient instructed in purpose of PT consult and plan of care. Assessment: Lisa contines to demonstrate functional mobility dependence but of less severity as she now only requires SBA for all ambulation activity. She continues to require the use of front wheeled walker and assistance of 2 people for safety, unsteadiness on feet, impaired balance, generalized muscle weakness, decreased activity tolerance, and increased fall risk due to postoperative status and comorbid conditions. Patient is an 80-year-old female with a past medical history history of pulmonary embolism, squamous cell carcinoma, vocal cord carcinoma, and s/p radiation, s/p laryngectomy and thyroidectomy, and tracheostomy placement. She presented to the ER on 05/14/2020 with chief presentation of vomiting and abdominal pain. Patient was diagnosed with partial obstruction of small intestine and and status post diagnostic laparoscopy and small bowel resection on postoperative day 5. Patient continues to present with clinical signs and symptoms consistent with current/admitting diagnoses that have resulted to mobility limitations, gait instability, and generalized weakness as demonstrated by the following impairment level findings: 1. Decreased strength to B UE/LE major muscle groups 2. Impaired standing balance 3. Impaired activity tolerance 4. Impaired respiratory function Impairments are contining to contribute to the following functional limitations: 1. Dependent bed mobility skills 2. Increased dependence with transfers 3. Inability to safely ambulate without assistive device and physical assistance 4. Increase completion time for mobility ADL performance 5. Increased fall risk Patient is assessed as a 64728 moderate complexity based on the following: History: Lisa is a an 80-year-old female with impairment level findings, functional limitations, and past medical history as listed above Examination: Demonstrable impairment in strength, and balance with underlying impairments and functional limitations as documented above Presentation: Evolving Decision Makin moderate complexity Goals: Goals X1 week 1. Supine-Sit supervision NOT MET, CONTINUE 2. Sit-Supine supervision NOT MET, CONTINUE 3. Sit-Stand i supervision NOT MET, CONTINUE 4. Stand-Sit supervision NOT MET, CONTINUE 5. Bed-Chair supervision NOT MET, CONTINUE 6. Chair-Bed supervision NOT MET, CONTINUE 7. Standby assist gait on level surface with use of least restrictive device for at least 300 feet without report of pain nor dyspnea NOT MET, CONTINUE 9. Standby assist with home exercise program NOT MET, CONTINUE 10. Good static and dynamic standing balance/tolerance NOT MET, CONTINUE Plan of Care/Treatment Plan: 1-2x/day, 7 days/week x 1 week. Plan of care has been reviewed with the VICE PRESIDENT OF DEVELOPMENT providing the service under Physical Therapy direction. Initiate Physical Therapy intervention for strengthening, bed mobility, transfers, gait, stairs, balance training, use of assistive device. DISCHARGE RECOMMENDATIONS: Return to home with 24/7 care. Patient will benefit from home health PT services in order to progress mobility level using least restrictive assistive ambulatory device, assess home safety, identify additional equipment needs, and establish a functional maintenance program that will increase ability of patient to remain at home. TREATMENT CODE/TIME: 25201 x 35 minutes beginning at 10:35 A.M. Thank you for the opportunity to participate in the care of this patient. Valeria Reyes PT, DPT, CLT [facility] [place], [place]
[2020-05-26] MEDS: Pantoprazole 40 MG VIAL IVP (18:37)
[2020-05-26] MEDS: Apixaban 5 MG TAB PO (21:53)
--- NOTE | 2020-05-26 22:36 | NUR.NOTE ---
Nursing Note pt transferred from the ICU at 1930.pt comfortable in recliner. pt nonverbal but has assistance with a whiteboard for communication
[2020-05-27] MEDS: metroNIDAZOLE 500 MG/100 ML BAG 100 MG IVPB ×3 (02:16→17:42)
[2020-05-27] MEDS: Normal Saline Flush 10 ML SYR IVP ×4 (02:17→18:54)
--- NOTE | 2020-05-27 05:14 | CMPROGNOTE_ITS ---
- If Service Date Differs Date of service: 05/27/20 Time of Service: 05:15 Care Management Progress Note S/O: Lisa remains acute at this time, Her daughter is concerned that she may need an increase in her Lasix as prior to admission she had been on 40mg BID. Family does not want or any palliative care to see Lisa. Lisa states to this healthcare account manager that she does not want palliative care at this time. CM sent a message to provider not to have patient seen by palliative leola fajardoing this admission. Lisa will be discharged home with her family when she is medically ready. She continues to work with PT and her bowel movements have improved. Today she is sitting up in the chair, CM did speak with her son Abdulaziz this morning and updated her daughters Trini, and Jasmin. A: Lisa is an 80 year old woman admitted on 05/14/20 with a partial SBO status post surgical intervention, partial bowel resection. P: Lisa will be discharged home when she is medically ready. She has caregiver through choices for care is addition to her family support. She is post op from a partial bowel resection. Lisa will need resumption of home health orders for nursing, and PT. She does not want to consider Hospice at this time and does not want palliative care. CM confirmed with family absolutely no SNF facility. CM will continue to follow and assess for ongoing discharge needs.
[2020-05-27 05:51] VITALS: BP 106/64; PULSE 95; RESP 20; O2SAT 95
[2020-05-27] MEDS: Insulin Aspart 300 UNITS/3 ML PEN SC ×4 (06:00→23:57)
[2020-05-27 07:56] VITALS: BP 108/64; PULSE 83; RESP 18; TEMP 36.1; O2SAT 99
[2020-05-27] MEDS: Protein Nutritional Supplement 16 GM 1 OUNCE PACKET JT ×2 (09:10→20:47)
[2020-05-27] MEDS: Furosemide 40 MG TAB PO (09:10)
[2020-05-27] MEDS: Metoprolol CR 25 MG TABCR 12.5 MG PO ×2 (09:10→20:46)
[2020-05-27] MEDS: Apixaban 5 MG TAB PO ×2 (09:10→20:46)
[2020-05-27] MEDS: Ferrous Sulfate 44 MG/ML Liquid 325 MG NG (09:12)
--- NOTE | 2020-05-27 09:45 | PGE_ITS ---
Date of Service Date of service: 05/27/20 Time of Service: 09:45 Assessment and Plan Assessment and plan (1) Anemia of chronic disease: Status: Acute Assessment and plan: stable. on Fe replacement resumed blood thinner (2) Decubitus ulcer, stage I: Status: Acute Qualifiers: Pressure injury location: sacral region Qualified Code(s): L89.151 - Pressure ulcer of sacral region, stage 1 (3) Protein-calorie malnutrition, mild: Status: Acute (4) Colitis due to Clostridium difficile: Status: Acute Assessment and plan: D#3 of po vanco/IV flagyl still have diarrhea, but decreased. pt is tolerating cl liq today. Will wean T feeding. Hopefully this will help w/ diarrhea. no fever/WBC #. clinically improved. (5) S/P small bowel resection: Status: Acute Assessment and plan: POD #9 s/p sm bowel resection nutrionaly replete very week. This is slowly improving. Stil unsure that pt is safe to go home- even w/ [facility] care. (6) Tracheostomy care: Status: Acute (7) COPD (chronic obstructive pulmonary disease): Status: Chronic Qualifiers: COPD type: unspecified COPD Qualified Code(s): J44.9 - Chronic obstructive pulmonary disease, unspecified (8) Atrial fibrillation with controlled ventricular rate: Status: Acute Assessment and plan: stable resumed elliquis hgb stable (9) Oral thrush: Status: Acute Assessment and plan: nystatin (10) Physical deconditioning: Status: Acute Assessment and plan: PT notes appreciated. pt and family motivated to take her home Subjective Subjective Interval history since last seen: Pt is doing well. no headaches. No CP or SOB. no productive cough. no dysuria. no leg pain or swelling. Patient is doing much better today. She was much stronger and she actually walked out into the hallway today. She is still having multiple bowel movements a day. 6 or 7. She still has this a stage I decubitus ulcer on her buttock. HEENT she does have some white plaquing on her tongue and I am going to treat her thrush today. Her trach site is clean dry and intact. Pulmonary lungs are clear to auscultation bilaterally. Abdomen incision is clean dry and intact. Good bowel sounds. She is tolerating her tube feeds. She still having multiple bowel movements. Not grossly bloody. Cardio: She is in chronic A. fib. I did restart her Eliquis. Hemoglobin has been stable. No signs of bleeding clinically. Blood pressure is been stable. Integument: She does have some. Significant lower extremity edema today. She does not have her TEAGAN hose on. We will increase her Lasix dose. She also has redness in her venkatesh-area and under the skin folds consistent with yeast as well we will start her on some nystatin cream. Her PIC site is clean dry and intact. She still has an open donor site on her left thigh from her skin graft. This is healing nicely. Exam HENMT Teeth and gingiva: other (thrush) Other: tracheostomy site c/d/i Resp Effort & Inspection: normal respiratory effort Auscultation: clear to auscultation bilaterally Cardio Other: a fib rate controlled back on elliquis GI Other: incision c/d/i. G tube c/d/i. good BS. non tender Skin Other: thrush on tongue. yeast in groin adn under folds LE edema. no breakdown. give her some additiona lasix tonight. Stage I breakdown on buttocks donor site on L thigh still not healed. clean granulation. Objective Objective Clinical Data: Vital Signs Temperature 36.1 C L 05/27/20 07:56 Temperature Source Tympanic 05/27/20 07:56 Pulse 83 05/27/20 07:56 Pulse Rhythm Regular 05/27/20 04:26 Pulse 86 05/26/20 10:00 Respiratory Rate 18 05/27/20 07:56 Respiratory Effort 05/27/20 04:26 Respiratory Depth Normal 05/27/20 04:26 Respiratory Pattern Normal 05/27/20 04:26 Blood Pressure 108/64 05/27/20 07:56 Blood Pressure Mean 69 05/26/20 07:27 Blood Pressure Position Sitting 05/26/20 07:45 Pulse Oximetry 99 05/27/20 07:56 Oxygen Delivery Method Room Air 05/27/20 07:56 Oxygen Flow Rate 0 05/27/20 07:56 Fraction of Inspired Oxygen (FIO2) 21 05/26/20 07:45 Pain Level 5 05/27/20 07:56 Comment 05/18/20 08:00 Intake & Output 05/26/20 05/26/20 05/27/20 11:59 23:59 11:59 Intake Total 508 / 1510 1002 / 1510 30 / 30 Output Total 1435 / 1610 175 / 1610 450 / 450 Balance -927 / -100 827 / -100 -420 / -420 Weight 85.2 kg Intake: IV 100 / 330 230 / 330 30 / 30 Oral 100 / 100 Intake, Tube Feeding Amount 408 / 1080 672 / 1080 Output: Urine 600 / 600 420 / 420 Output, Residual 835 / 1010 175 / 1010 30 30 Other: Urine Color Yellow Dark Andrew Urine Appearance Clear Clear Clear Comment curry draining andrew urine Stool Occult Blood Negative Stool Size Small Small Moderate Stool Characteristics Soft Soft Soft Mucoid Liquid Brown Mucoid Laboratory Results WBC 11.98 k/cumm (4.4-10.8) H D 05/26/20 07:13 RBC 3.51 m/cumm (4.00-5.20) L 05/26/20 07:13 Hgb 10.4 g/dL (12.0-15.5) L 05/26/20 07:13 Hct 32.0 % (36.0-46.0) L 05/26/20 07:13 MCV 91.2 fL (80-95) 05/26/20 07:13 MCH 29.6 pg (27.0-33.0) 05/26/20 07:13 MCHC 32.5 g/dL (32.0-36.0) 05/26/20 07:13 RDW 15.6 % (11.7-14.6) H 05/26/20 07:13 Plt Count 317 x1000/uL (130-400) 05/26/20 07:13 MPV 9.6 fL (8.0-11.0) 05/26/20 07:13 Immature Gran % 0.0 % 05/26/20 07:13 Neutrophils % 86.0 05/26/20 07:13 Band Neutrophils % 5.0 % 05/23/20 05:45 Lymphocytes % 7.0 05/26/20 07:13 Monocytes % 5.0 05/26/20 07:13 Eosinophils % 2.0 05/26/20 07:13 Basophils % 0.0 05/26/20 07:13 Absolute Neutrophils 10.30 k/cumm (1.2-6.7) H 05/26/20 07:13 Absolute Lymphocytes 0.84 k/cumm (1.2-3.4) L 05/26/20 07:13 Absolute Monocytes 0.60 k/cumm (0.11-0.7) 05/26/20 07:13 Absolute Eosinophils 0.24 k/cumm (0.0-0.7) 05/26/20 07:13 Absolute Basophils 0.00 k/cumm (0.0-0.2) 05/26/20 07:13 Differential Comment Manual differential 05/26/20 07:13 RBC Morphology Normal 05/26/20 07:13 Polychromasia Present 05/24/20 06:30 Hypochromasia 1+ 05/23/20 05:45 Anisocytosis 1+ 05/24/20 06:30 D-Dimer 2745 ng/mlFEU (<500) H 05/24/20 06:30 Sodium 140 mmol/L (136-145) 05/26/20 07:13 Potassium 3.8 mmol/L (3.5-5.1) 05/26/20 07:13 Chloride 108 mmol/L (98-107) H 05/26/20 07:13 Carbon Dioxide 24.4 mmol/L (21.0-32.0) 05/26/20 07:13 Anion Gap 7.6 mmol/L (3-11) 05/26/20 07:13 BUN 19 mg/dL (7-18) H 05/26/20 07:13 Creatinine 0.76 mg/dL (0.55-1.02) 05/26/20 07:13 Estimated GFR/1.73 m2 >= 60.00 (mL/min/1.73m2) 05/26/20 07:13 Glucose 157 mg/dL (74-106) H 05/26/20 07:13 Lactate 1.5 mmol/L (0.6-1.4) H 05/24/20 06:30 Calcium 7.9 mg/dL (8.5-10.1) L 05/26/20 07:13 Phosphorus 3.4 mg/dL (2.6-4.7) 05/25/20 06:20 Magnesium 2.1 mg/dL (1.8-2.4) 05/26/20 07:13 Iron 138 ug/dL (50-170) 05/21/20 06:30 TIBC 141 ug/dL (250-450) L 05/21/20 06:30 Transferrin % Sat 98 % (15-50) H 05/21/20 06:30 Total Bilirubin 0.5 mg/dL (0.2-1.0) 05/24/20 06:30 AST 22 U/L (15-37) 05/24/20 06:30 ALT 18 U/L (14-59) 05/24/20 06:30 Alkaline Phosphatase 144 U/L (46-116) H 05/24/20 06:30 Troponin I < 0.05 ng/mL (<0.06) 05/14/20 19:15 C-Reactive Protein 12.88 mg/dL (0.0-0.3) H 05/24/20 06:30 Total Protein 5.0 g/dL (6.4-8.2) L 05/24/20 06:30 Albumin 1.4 g/dL (3.4-5.0) L 05/24/20 06:30 Lipase 56 U/L (73-393) 05/23/20 05:45 Urine Color Yellow (Yellow) 05/23/20 14:10 Urine Clarity Clear (Clear) 05/23/20 14:10 Urine pH 7.0 (5-8) 05/23/20 14:10 Ur Specific [place] 1.015 (1.005-1.025) 05/23/20 14:10 Urine Protein Negative mg/dL (Negative) 05/23/20 14:10 Urine Ketones Negative mg/dL (Negative) 05/23/20 14:10 Urine Blood Negative (Negative) 05/23/20 14:10 Urine Nitrite Negative (Negative) 05/23/20 14:10 Urine Bilirubin Negative (Negative) 05/23/20 14:10 Urine Urobilinogen 0.2 EU/dL (Up TO 0.2) 05/23/20 14:10 Ur Leukocyte Esterase Negative (Negative) 05/23/20 14:10 Urine Glucose Negative mg/dL (Negative) 05/23/20 14:10 COVID-19 PCR Negative (Negative) 05/14/20 17:30 Nasopharyn COVID-19 PCR Not Applicable 05/14/20 17:30 Ref Test Perform Site [facility] lab 05/14/20 17:30 Patient ABO/Rh B Negative 05/24/20 08:55 Antibody Screen Negative 05/24/20 08:55 Crossmatch See Detail 05/24/20 08:55
--- NOTE | 2020-05-27 10:45 | PTTR_ITS ---
Date of service: 05/27/20 Time of Service: 10:45 PT Notes Visit Reasons: SMALL BOWEL OBSTRUCTION Inpatient Physical Therapy Treatment Note [facility] Date: 05/27/2020 Referring Doctor: Haydee Morrow MD PT Orders: PT CONSULT: Eval/treat Precautions: Fall. Standard. Activity as tolerated. Subjective: Patient required encouragement to participate in therapy today as she states that her surgical incision is giving her discomfort. After much encouragement and reassurance that coordination with nurse to ensure that medication for pain will be given, patient agreed to working with PT. Objective: General Observation: O2 on 2 L/min via tracheostomy tube on 30 L with 26% oxygen with humidification. Telemetry monitoring in place. Edwards catheter in place. Wound dressing over surgical incision. B UE swelling with the right more affected than the left. Mental Status: Patient is non-verbal. She is able to mouth some words, but often requires white board/paper and pen to write. Pain: 3/10 in abdominal area Bed Mobility/Transfers: Sit to stand from bedside recliner minimal assist Stand to sit standby assist Bed to chair standby assist Chair to bed minimal assist Gait: 90 feet using front wheeled walker with full weight bearing requiring standby assist and IV pole management of PT and wheelchair follow of nurse Chino. Step through gait pattern. No diarrhea episode during ambulation. Denies dizziness, chest pain, and lightheadedness but did report pain in abdominal area at 3/10 which nurse Lulú knows about. Balance: Static Sitting: Good Dynamic Sitting: Good Static Standing: Fair Dynamic Standing: Fair Assessment: This is second day of patient requring only SBA using FWW and the help of a second person for wheelchair follow and overall safety; no diarrhea episode during ambulation with PT today. She is demonstrating improving mobility level despite continued report of pain in abdominal area. She only reported 3/10 pain level after walking activity this morning. Depending on medical status, patient may manage back at home as her mobility is beginning to improve. DISCHARGE RECOMMENDATIONS: Return to home with 24/7 care vs. SNF placement. If headed home, patient will benefit from home health PT services in order to progress mobility level using least restrictive assistive ambulatory device, assess home safety, identify additional equipment needs, and establish a fun ctional maintenance program that will increase ability of patient to remain at home. TREATMENT CODE/TIME: 50146 x 15 minutes, 14671 x 15 beginning at 10:45 A.M.
--- NOTE | 2020-05-27 12:13 | W.NUTRFU ---
Date of service: 05/27/20 Time of Service: 12:14 Nutritional Follow up NOTE: Met with Lisa today, with use of message board indicates that she has intermittent stomach pain, nursing aware. Tolerating tube feeding at goal rate. Labs reviewed BS ranging from 150-200 mg/dl, on sliding scale aspart insulin. Recommend advance diet to clears/fulls when appropriate. will continue to follow. Time Spent in Nutritional Counseling and Treatment: 5 min spent face to face
--- NOTE | 2020-05-27 14:54 | PT.INTREAT ---
Date of service: 05/27/20 Time of Service: 14:54 PT Notes Visit Reasons: SMALL BOWEL OBSTRUCTION Inpatient Physical Therapy Treatment Note [facility] Date: 05/27/2020 SUBJECTIVE:Lisa states that she is tired this pm. OBJECTIVE: [] BED MOBILITY/TRANSFERS Sit-stand: min A x1 Stand-sit: SBA GAIT Assistive Device: FWW Weight bearing: full Assist:SBA Distance: [address] THEREX: seated LE strengthening, added in some balance ex see flowsheet for details. ASSESSMENT: c/o increased discomfort in left arm due to fluid build up. Unable to perform HR due to foot pain. She has good balance. I was unable to find someone to assist me in walking with her, 2 IV poles and her breathing tube plus follow with wc. PLAN: will continue to progress following POC. TREATMENT CODE/TIME: 15 min. [id number]
[2020-05-27 16:29] VITALS: BP 113/69; PULSE 71; RESP 18; TEMP 36.4; O2SAT 95
[2020-05-27] MEDS: Pantoprazole 40 MG VIAL IVP (17:42)
[2020-05-27] MEDS: Furosemide 40 MG/4 ML VIAL IVP (18:53)
[2020-05-27 20:17] VITALS: BP 104/65; PULSE 80; RESP 18; TEMP 36.5; O2SAT 99
[2020-05-27] MEDS: Nystatin 500000 UNITS/5 ML SUSP 5ML CUP (20:47)
[2020-05-27] MEDS: Nystatin CREAM 30 GM TUBE TP (20:47)
[2020-05-28] VITALS (7 sets, daily range): BP systolic 109–149; BP diastolic 64–73; PULSE 77–88; RESP 19–21; TEMP 34–36.6; O2SAT 96–99
[2020-05-28] MEDS: metroNIDAZOLE 500 MG/100 ML BAG 100 MG IVPB ×3 (02:39→18:27)
[2020-05-28] MEDS: Normal Saline Flush 10 ML SYR IVP ×2 (02:39→18:27)
[2020-05-28] MEDS: Insulin Aspart 300 UNITS/3 ML PEN SC (06:12)
[2020-05-28 07:25] LABS: Anion Gap 8.7 mmol/L (3-11); BUN 27 mg/dL (7-18); CO2 23.3 mmol/L (21.0-32.0); CREATININE 0.85 mg/dL (0.55-1.02); Calcium 7.5 mg/dL (8.5-10.1); Chloride 106 mmol/L (98-107); Glucose 179 mg/dL (74-106); Magnesium 1.9 mg/dL (1.8-2.4); Potassium 3.7 mmol/L (3.5-5.1); Sodium 138 mmol/L (136-145)
[2020-05-28] MEDS: Metoprolol CR 25 MG TABCR 12.5 MG PO ×2 (08:20→19:44)
[2020-05-28] MEDS: Nystatin CREAM 30 GM TUBE TP ×2 (08:20→19:45)
[2020-05-28] MEDS: Apixaban 5 MG TAB PO ×2 (08:20→19:44)
[2020-05-28] MEDS: Furosemide 40 MG TAB PO ×2 (08:20→16:45)
[2020-05-28] MEDS: Protein Nutritional Supplement 16 GM 1 OUNCE PACKET JT ×2 (08:20→19:45)
[2020-05-28] MEDS: Ferrous Sulfate 44 MG/ML Liquid 325 MG NG (08:23)
[2020-05-28 08:37] LABS: Abs Immature Grans 0.07 k/cumm (0.0-0.09); Absolute Basophil Count 0.01 k/cumm (0.0-0.2); Absolute Eosinophil Count 0.32 k/cumm (0.0-0.7); Absolute Lymphocyte Count 1.42 k/cumm (1.2-3.4); Absolute Monocyte Count 0.81 k/cumm (0.11-0.7); Absolute Neutrophil Count 6.21 k/cumm (1.2-6.7); Basophils % 0.1; Eosinophils % 3.6; HCT 29.3 % (36.0-46.0); HGB 9.1 g/dL (12.0-15.5); Immature Grans % 0.8 %; Lymphocytes % 16.1; Mean Corp. HGB Concentration 31.1 g/dL (32.0-36.0); Mean Corpuscular Hemoglobin 29.4 pg (27.0-33.0); Mean Corpuscular Volume 94.5 fL (80-95); Mean Platelet Volume 9.9 fL (8.0-11.0); Monocytes % 9.2; Neutrophils % 70.2; Platelet Count 353 x1000/uL (130-400); White Blood Cell Count 8.84 k/cumm (4.4-10.8)
--- NOTE | 2020-05-28 10:35 | PTTR_ITS ---
Date of service: 05/28/20 Time of Service: 10:35 PT Notes Visit Reasons: SMALL BOWEL OBSTRUCTION Inpatient Physical Therapy Treatment Note [facility] Date: 05/28/2020 Precautions: Fall. Standard. Activity as tolerated. Mask on face and over tracheostomy site. Subjective: Patient again required encouragement to participate in therapy today as she states that she does not feel good and has been a little nauseated since early this morning. Nurse Mary Grace states that they were able to stand patient earlier. After reassuring patient that a shorter walk will be done and a wheelchair follow made, she agreed to go. She was happy that she was able to walk farther than she did yesterday. Objective: General Observation: O2 on 2 L/min via tracheostomy tube on 30 L with 26% oxygen with humidification. Telemetry monitoring in place. Edwards catheter in place. Wound dressing over surgical incision. B UE swelling with the right more affected than the left. Mental Status: Patient is non-verbal. She is able to mouth some words, but often requires white board/paper and pen to write. Pain: 1-2/10 in abdominal area Bed Mobility/Transfers: Sit to stand from bedside recliner minimal assist Stand to sit onot bedisde recliner supervision Gait: 100 feet using front wheeled walker with full weight bearing requiring standby assist and IV pole management and wheelchair follow of PT. Step through gait pattern. No diarrhea episode during ambulation. Denies dizziness, chest pain, and lightheadedness but did report pain in abdominal area at 1-2/10 which nurse Chino knows about. Balance: Static Sitting: Good Dynamic Sitting: Good Static Standing: Fair Dynamic Standing: Fair Assessment: This is third day of patient requring only SBA using FWW with no diarrhea episode during ambulation with PT today. She is contouing to demonstr ate improving mobility level with decreasing report of pain in abdominal area. She only reported 1-2/10 pain level after walking activity this morning. Depending on medical status, patient may manage back at home as her mobility is beginning to improve. DISCHARGE RECOMMENDATIONS: Return to home with 28/05 care vs. SNF placement. If headed home, patient will benefit from home health PT services in order to progress mobility level using least restrictive assistive ambulatory device, assess home safety, identify additional equipment needs, and establish a functional maintenance program that will increase ability of patient to remain at home. TREATMENT CODE/TIME: 45138 x 26 minutes beginning at 10:35 A.M.
[2020-05-28] MEDS: Nystatin 500000 UNITS/5 ML SUSP 5ML CUP PO ×2 (14:06→19:45)
[2020-05-28] MEDS: Pantoprazole 40 MG VIAL IVP (18:27)
[2020-05-28] MEDS: Vancomycin 125 MG CAP PO ×2 (18:27→23:55)
--- NOTE | 2020-05-28 20:14 | PDOC.CMPRO ---
- If Service Date Differs Date of service: 05/28/20 Time of Service: 15:00 Care Management Progress Note S/O: Lisa remains acute at this time. She reports she is feeling well. Her plan is to possible return home early next week. She continues on tube feeds which she is also on at home once a day. She is being treated for Cdiff. Her Furosemide was increased to BID which was her dose at home. CM updated Lisa's daughter Trini today. Her son Sb has been visiting daily. Lisa is hopeful to return home soon. Per provider tolerating a diet, and decrease in her bowel movements is the goal and hopefully return home with her supports Sunday. A: Lisa is an 80 year old woman admitted on 05/14/20 with a partial SBO status post surgical intervention, partial bowel resection. P: Lisa will be discharged home when she is medically ready. She has caregiver through choices for care is addition to her family support. She is post op from a partial bowel resection. Lisa will need resumption of home health orders for nursing, and PT. She does not want to consider Hospice at this time and does not want palliative care. CM confirmed with family absolutely no SNF facility. CM will continue to follow and assess for ongoing discharge needs. Family to transport home via private car at time of discharge.
[2020-05-29] MEDS: metroNIDAZOLE 500 MG/100 ML BAG 100 MG IVPB ×3 (02:14→18:10)
[2020-05-29] MEDS: Normal Saline Flush 10 ML SYR IVP ×4 (02:14→18:11)
[2020-05-29] MEDS: Vancomycin 125 MG CAP PO ×4 (06:11→23:34)
--- NOTE | 2020-05-29 08:27 | PT.INTREAT ---
Date of service: 05/28/20 Time of Service: 13:45 PT Notes Visit Reasons: SMALL BOWEL OBSTRUCTION Inpatient Physical Therapy Treatment Note [facility] Date: 05/28/2020 SUBJECTIVE: Lisa states that her legs are sore, from swelling. OBJECTIVE: [] BED MOBILITY/TRANSFERS Sit-stand: SBA Stand-sit: SBA GAIT Assistive Device: FWW Weight bearing: FWB Assist: SBA Distance: 25'x2 THEREX: seated LE strength and stabilization routine, see flowsheet for detail. ASSESSMENT: tolerated session well, despite reports of sore legs. Able to get through all ex without increased c/o of pain or fatigue. She is steady on her feet. Reminders to hand placement during stand to sit transfers. PLAN: continue with PT POC. TREATMENT CODE/TIME: 25 min. [id number], [id number].
[2020-05-29 08:29] VITALS: BP 134/73; PULSE 96; RESP 21; TEMP 36.5; O2SAT 95
--- NOTE | 2020-05-29 09:52 | W.PM.PROGNOT ---
Date of Service Date of service: 05/29/20 Time of Service: 09:52 Assessment and Plan Assessment and plan (1) Anemia of chronic disease: Status: Acute Assessment and plan: stable. on Fe replacement resumed blood thinner (2) Decubitus ulcer, stage I: Status: Acute Assessment and plan: Healing. Continue with special mattress Qualifiers: Pressure injury location: sacral region Qualified Code(s): L89.151 - Pressure ulcer of sacral region, stage 1 (3) Protein-calorie malnutrition, mild: Status: Acute Assessment and plan: Protein shake BID through Gtube Encourage PO intake (4) Colitis due to Clostridium difficile: Status: Acute Assessment and plan: Clinically improving. Still with diarrhea. TF have been stopped Add Metamucil BID (5) S/P small bowel resection: Status: Acute Assessment and plan: POD #9 s/p sm bowel resection nutrionaly replete very week. This is slowly improving. Stil unsure that pt is safe to go home- even w/ 24 [facility] care. (6) Tracheostomy care: Status: Acute (7) COPD (chronic obstructive pulmonary disease): Status: Chronic Qualifiers: COPD type: unspecified COPD Qualified Code(s): J44.9 - Chronic obstructive pulmonary disease, unspecified (8) Atrial fibrillation with controlled ventricular rate: Status: Acute Assessment and plan: stable resumed elliquis hgb stable (9) Oral thrush: Status: Acute Assessment and plan: nystatin (10) Physical deconditioning: Status: Acute Assessment and plan: PT notes appreciated. pt and family motivated to take her home Subjective Subjective Interval history since last seen: Lisa is sitting in the chair . She is doing well. Still having liquid stools. Had no BM's through the night and then she had an explosive BM. Still not drinking much. Exam [facility] Head: normocephalic and atraumatic Resp Effort & Inspection: normal respiratory effort Auscultation: clear to auscultation bilaterally Cardio Rate: regular rate Rhythm: regular rhythm GI Inspection: incision (c/d/i) Palpation: soft, no hepatosplenomegaly and nontender Auscultation: normal bowel sounds Objective Objective Clinical Data: Vital Signs Temperature 97.7 F 05/29/20 08:29 Temperature Source Temporal Artery Scan 05/29/20 08:29 Pulse 96 H 05/29/20 08:29 Pulse Rhythm Regular 05/29/20 02:31 Pulse 86 05/26/20 10:00 Respiratory Rate 21 05/29/20 08:29 Respiratory Effort Non-Labored 05/29/20 02:31 Respiratory Depth Normal 05/29/20 02:31 Respiratory Pattern Normal 05/29/20 02:31 Blood Pressure 134/73 05/29/20 08:29 Blood Pressure Mean 69 05/26/20 07:27 Blood Pressure Position Sitting 05/26/20 07:45 Pulse Oximetry 95 05/29/20 08:29 Oxygen Delivery Method Hi Flow System 05/29/20 08:29 Oxygen Flow Rate 0 05/28/20 22:55 Fraction of Inspired Oxygen (FIO2) 21 05/28/20 10:00 Pain Level 3 05/29/20 08:29 Comment 05/18/20 08:00 Intake & Output 05/28/20 05/28/20 05/29/20 11:59 23:59 11:59 Intake Total 410 / 640 230 / 640 100 / 100 Output Total 1660 / 3900 2240 / 3900 700 / 700 Balance -1250 / -3260 -2010 / -3260 -600 / -600 Weight 193 lb 12.581 oz 194 lb 7.163 oz Intake: IV 130 / 360 230 / 360 100 / 100 Intake, Tube Feeding Amount 280 / 280 Output: Gastric Drainage 70 / 110 40 / 110 Lt Upper Quadrant 70 / 110 40 / 110 Urine 1550 / 3750 2200 / 3750 700 / 700 Output, Residual 40 / 40 Other: Urine Color Yellow Yellow Yellow Urine Appearance Clear Clear Clear Stool Size Large Moderate Stool Characteristics Liquid Soft Mucoid Laboratory Results WBC 8.84 k/cumm (4.4-10.8) 05/28/20 06:20 RBC 3.10 m/cumm (4.00-5.20) L 05/28/20 06:20 Hgb 9.1 g/dL (12.0-15.5) L 05/28/20 06:20 Hct 29.3 % (36.0-46.0) L 05/28/20 06:20 MCV 94.5 fL (80-95) 05/28/20 06:20 MCH 29.4 pg (27.0-33.0) 05/28/20 06:20 MCHC 31.1 g/dL (32.0-36.0) L 05/28/20 06:20 RDW 16.0 % (11.7-14.6) H 05/28/20 06:20 Plt Count 353 x1000/uL (130-400) 05/28/20 06:20 MPV 9.9 fL (8.0-11.0) 05/28/20 06:20 Immature Gran % 0.8 % 05/28/20 06:20 Neutrophils % 70.2 05/28/20 06:20 Band Neutrophils % 5.0 % 05/23/20 05:45 Lymphocytes % 16.1 05/28/20 06:20 Monocytes % 9.2 05/28/20 06:20 Eosinophils % 3.6 05/28/20 06:20 Basophils % 0.1 05/28/20 06:20 Absolute Neutrophils 6.21 k/cumm (1.2-6.7) 05/28/20 06:20 Absolute Lymphocytes 1.42 k/cumm (1.2-3.4) 05/28/20 06:20 Absolute Monocytes 0.81 k/cumm (0.11-0.7) H 05/28/20 06:20 Absolute Eosinophils 0.32 k/cumm (0.0-0.7) 05/28/20 06:20 Absolute Basophils 0.01 k/cumm (0.0-0.2) 05/28/20 06:20 Differential Comment Manual differential 05/26/20 07:13 RBC Morphology Normal 05/26/20 07:13 Polychromasia Present 05/24/20 06:30 Hypochromasia 1+ 05/23/20 05:45 Anisocytosis 1+ 05/24/20 06:30 D-Dimer 2745 ng/mlFEU (<500) H 05/24/20 06:30 Sodium 138 mmol/L (136-145) 05/28/20 06:20 Potassium 3.7 mmol/L (3.5-5.1) 05/28/20 06:20 Chloride 106 mmol/L (98-107) 05/28/20 06:20 Carbon Dioxide 23.3 mmol/L (21.0-32.0) 05/28/20 06:20 Anion Gap 8.7 mmol/L (3-11) 05/28/20 06:20 BUN 27 mg/dL (7-18) H 05/28/20 06:20 Creatinine 0.85 mg/dL (0.55-1.02) 05/28/20 06:20 Estimated GFR/1.73 m2 >= 60.00 (mL/min/1.73m2) 05/28/20 06:20 Glucose 179 mg/dL (74-106) H 05/28/20 06:20 Lactate 1.5 mmol/L (0.6-1.4) H 05/24/20 06:30 Calcium 7.5 mg/dL (8.5-10.1) L 05/28/20 06:20 Phosphorus 3.4 mg/dL (2.6-4.7) 05/25/20 06:20 Magnesium 1.9 mg/dL (1.8-2.4) 05/28/20 06:20 Iron 138 ug/dL (50-170) 05/21/20 06:30 TIBC 141 ug/dL (250-450) L 05/21/20 06:30 Transferrin % Sat 98 % (15-50) H 05/21/20 06:30 Total Bilirubin 0.5 mg/dL (0.2-1.0) 05/24/20 06:30 AST 22 U/L (15-37) 05/24/20 06:30 ALT 18 U/L (14-59) 05/24/20 06:30 Alkaline Phosphatase 144 U/L (46-116) H 05/24/20 06:30 Troponin I < 0.05 ng/mL (<0.06) 05/14/20 19:15 C-Reactive Protein 12.88 mg/dL (0.0-0.3) H 05/24/20 06:30 Total Protein 5.0 g/dL (6.4-8.2) L 05/24/20 06:30 Albumin 1.4 g/dL (3.4-5.0) L 05/24/20 06:30 Lipase 56 U/L (73-393) 05/23/20 05:45 Urine Color Yellow (Yellow) 05/23/20 14:10 Urine Clarity Clear (Clear) 05/23/20 14:10 Urine pH 7.0 (5-8) 05/23/20 14:10 Ur Specific [place] 1.015 (1.005-1.025) 05/23/20 14:10 Urine Protein Negative mg/dL (Negative) 05/23/20 14:10 Urine Ketones Negative mg/dL (Negative) 05/23/20 14:10 Urine Blood Negative (Negative) 05/23/20 14:10 Urine Nitrite Negative (Negative) 05/23/20 14:10 Urine Bilirubin Negative (Negative) 05/23/20 14:10 Urine Urobilinogen 0.2 EU/dL (Up TO 0.2) 05/23/20 14:10 Ur Leukocyte Esterase Negative (Negative) 05/23/20 14:10 Urine Glucose Negative mg/dL (Negative) 05/23/20 14:10 COVID-19 PCR Negative (Negative) 05/14/20 17:30 Nasopharyn COVID-19 PCR Not Applicable 05/14/20 17:30 Ref Test Perform Site [facility] lab 05/14/20 17:30 Patient ABO/Rh B Negative 05/24/20 08:55 Antibody Screen Negative 05/24/20 08:55 Crossmatch See Detail 05/24/20 08:55
[2020-05-29 09:55] VITALS: TEMP 34
[2020-05-29] MEDS: Apixaban 5 MG TAB PO ×2 (09:56→20:19)
[2020-05-29] MEDS: Metoprolol CR 25 MG TABCR 12.5 MG PO ×2 (09:56→20:19)
[2020-05-29] MEDS: Furosemide 40 MG TAB PO ×2 (09:57→16:11)
[2020-05-29] MEDS: Nystatin 500000 UNITS/5 ML SUSP 5ML CUP PO ×3 (09:57→20:19)
[2020-05-29] MEDS: Nystatin CREAM 30 GM TUBE TP (10:07)
[2020-05-29] MEDS: Protein Nutritional Supplement 16 GM 1 OUNCE PACKET JT ×2 (10:08→20:18)
[2020-05-29] MEDS: Ferrous Sulfate 325 MG TAB PO (10:28)
--- NOTE | 2020-05-29 12:26 | PT.INTREAT ---
Date of service: 05/29/20 Time of Service: 11:00 PT Notes Visit Reasons: SMALL BOWEL OBSTRUCTION Inpatient Physical Therapy Treatment Note [facility] Date: 05/29/2020 SUBJECTIVE: Lisa states that she is feeling good other than her legs. She continues to reports soreness due to swelling. OBJECTIVE: [] BED MOBILITY/TRANSFERS Sit-stand: SBA Stand-sit: SBA GAIT Assistive Device:FWW Weight bearing: FWB Assist: SBA Distance: 100' Deviation: wc to follow THEREX: global LE strength and stabilization routine, see flowsheet for details. ASSESSMENT: improvements noted everyday. Noting strength and endurance gains. She is concerned that they will send her home before she is ready. She does not want to go home if she continues with diarrhea. PLAN: continue per PT POC. Could still work on increasing her endurance. TREATMENT CODE/TIME: 30 min. [id number], [id number].
--- NOTE | 2020-05-29 13:29 | CMPROGNOTE_ITS ---
- If Service Date Differs Date of service: 05/29/20 Time of Service: 13:29 Care Management Progress Note S/O: No change in plan. A review of the medical chart reveals that Lisa is improving but continues to meet acute level of care. She continues on tube feeds, which she is also on at home. Her anemia is stable but she continues to receive treatment for C diff and a stage I decubitus ulcer. CM will continue to follow. A: Lisa is an 80 year old woman admitted on 05/14/20 with a partial SBO status post surgical intervention, partial bowel resection. P: No change in plan. Lisa will be discharged home when she is medically read y. She has caregiver through choices for care is addition to her family support. She is post op from a partial bowel resection. Lisa will need resumption of home health orders for nursing, and PT. She does not want to consider Hospice at this time and does not want palliative care. CM confirmed with family absolutely no SNF facility. CM will continue to follow and assess for ongoing discharge needs. Family to transport home via private car at time of discharge.
[2020-05-29 15:13] VITALS: BP 124/71; PULSE 83; RESP 20; TEMP 36.6; O2SAT 95
[2020-05-29] MEDS: Lactobacillus Acidophilus CAP 1 CAP ×2 (15:19→15:21)
[2020-05-29] MEDS: Psyllium PKT 1 EACH PO (20:19)
[2020-05-29 23:38] VITALS: BP 135/74; PULSE 79; RESP 18; TEMP 36.3; O2SAT 97
[2020-05-30] MEDS: metroNIDAZOLE 500 MG/100 ML BAG 100 MG IVPB ×3 (02:04→18:02)
[2020-05-30] MEDS: Normal Saline Flush 10 ML SYR IVP ×2 (04:56→10:48)
[2020-05-30] MEDS: Vancomycin 125 MG CAP PO ×3 (06:12→18:02)
[2020-05-30 07:30] VITALS: TEMP 34
[2020-05-30 08:15] VITALS: BP 117/71; PULSE 77; RESP 20; TEMP 36.5; O2SAT 92
[2020-05-30] MEDS: Pantoprazole 40 MG TABCR PO (08:20)
[2020-05-30] MEDS: Normal Saline Flush 10 ML SYR 20 ML IVP ×2 (08:20→20:14)
[2020-05-30] MEDS: Protein Nutritional Supplement 16 GM 1 OUNCE PACKET JT ×2 (08:20→20:14)
[2020-05-30] MEDS: Nystatin 500000 UNITS/5 ML SUSP 5ML CUP PO ×3 (08:20→20:14)
[2020-05-30] MEDS: Metoprolol CR 25 MG TABCR 12.5 MG PO ×2 (08:20→20:15)
[2020-05-30] MEDS: Ferrous Sulfate 325 MG TAB PO (08:21)
[2020-05-30] MEDS: Apixaban 5 MG TAB PO ×2 (08:21→20:15)
[2020-05-30] MEDS: Furosemide 40 MG TAB PO ×2 (08:21→16:03)
--- NOTE | 2020-05-30 09:27 | W.PM.PROGNOT ---
Date of Service Date of service: 05/30/20 Time of Service: 09:27 Assessment and Plan Assessment and plan (1) Anemia of chronic disease: Status: Acute Assessment and plan: stable. on Fe replacement resumed blood thinner (2) Decubitus ulcer, stage I: Status: Acute Assessment and plan: Healing. Continue with special mattress Qualifiers: Pressure injury location: sacral region Qualified Code(s): L89.151 - Pressure ulcer of sacral region, stage 1 (3) Protein-calorie malnutrition, mild: Status: Acute Assessment and plan: Protein shake BID through Gtube Encourage PO intake (4) Colitis due to Clostridium difficile: Status: Acute Assessment and plan: Clinically improving. Metamucil BID (5) S/P small bowel resection: Status: Acute Assessment and plan: POD #9 s/p sm bowel resection nutrionaly replete very week. This is slowly improving. Stil unsure that pt is safe to go home- even w/ 24 [facility] care. (6) Tracheostomy care: Status: Acute (7) COPD (chronic obstructive pulmonary disease): Status: Chronic Qualifiers: COPD type: unspecified COPD Qualified Code(s): J44.9 - Chronic obstructive pulmonary disease, unspecified (8) Atrial fibrillation with controlled ventricular rate: Status: Acute Assessment and plan: stable resumed elliquis hgb stable (9) Oral thrush: Status: Acute Assessment and plan: nystatin (10) Physical deconditioning: Status: Acute Assessment and plan: PT notes appreciated. pt and family motivated to take her home (11) Discharge planning issues: Status: Acute Assessment and plan: Hopefully D/C home tomorrow with Home Health services as before Subjective Subjective Interval history since last seen: Lisa is doing well today. She is in the chair again. She tells me she is eating a bit more. her son is with her today. PT is pleased with her progress but they do recommend Home Health PT. She has not had another diarrhea episode since yesterday morning. Exam Const General: cooperative, comfortable and no acute distress Orientation: alert, awake and oriented x3 HENMT Head: normocephalic and atraumatic Resp Effort & Inspection: normal respiratory effort Auscultation: clear to auscultation bilaterally Cardio Rate: regular rate Rhythm: regular rhythm GI Inspection: normal to inspection and incision (c/d [place] in place.) Palpation: soft and no hepatosplenomegaly Auscultation: normal bowel sounds Objective Objective Clinical Data: Vital Signs Temperature 97.7 F 05/30/20 08:15 Temperature Source Tympanic 05/30/20 08:15 Pulse 77 05/30/20 08:15 Pulse Rhythm Regular 05/30/20 03:25 Pulse 86 05/26/20 10:00 Respiratory Rate 20 05/30/20 08:15 Respiratory Effort Non-Labored 05/30/20 03:25 Respiratory Depth Normal 05/30/20 03:25 Respiratory Pattern Normal 05/30/20 03:25 Blood Pressure 117/71 05/30/20 08:15 Blood Pressure Mean 69 05/26/20 07:27 Blood Pressure Position Sitting 05/26/20 07:45 Pulse Oximetry 92 L 05/30/20 08:15 Oxygen Delivery Method Hi Flow System 05/30/20 08:15 Oxygen Flow Rate 0 05/29/20 23:38 Fraction of Inspired Oxygen (FIO2) 21 05/29/20 09:55 Pain Level 0 05/29/20 23:38 Comment 05/18/20 08:00 Intake & Output 05/29/20 05/29/20 05/30/20 11:59 23:59 11:59 Intake Total 450 / 830 380 / 830 440 / 440 Output Total 700 / 2500 1800 / 2500 400 / 400 Balance -250 / -1670 -1420 / -1670 40 / 40 Weight 194 lb 7.163 oz 182 lb 15.739 oz Intake: IV 200 / 340 140 / 340 200 / 200 Oral 250 / 490 240 / 490 240 / 240 Output: Gastric Drainage 0 / 0 Lt Upper Quadrant 0 / 0 Urine 700 / 2500 1800 / 2500 400 / 400 Other: Urine Color Yellow Yellow Straw Urine Appearance Sediment Clear Clear Urine Odor Normal Comment denies pain or discomfort Stool Size Copious Small Stool Characteristics Soft Soft Liquid Brown Voiding Methods Indwelling Catheter Laboratory Results WBC 8.84 k/cumm (4.4-10.8) 05/28/20 06:20 RBC 3.10 m/cumm (4.00-5.20) L 05/28/20 06:20 Hgb 9.1 g/dL (12.0-15.5) L 05/28/20 06:20 Hct 29.3 % (36.0-46.0) L 05/28/20 06:20 MCV 94.5 fL (80-95) 05/28/20 06:20 MCH 29.4 pg (27.0-33.0) 05/28/20 06:20 MCHC 31.1 g/dL (32.0-36.0) L 05/28/20 06:20 RDW 16.0 % (11.7-14.6) H 05/28/20 06:20 Plt Count 353 x1000/uL (130-400) 05/28/20 06:20 MPV 9.9 fL (8.0-11.0) 05/28/20 06:20 Immature Gran % 0.8 % 05/28/20 06:20 Neutrophils % 70.2 05/28/20 06:20 Band Neutrophils % 5.0 % 05/23/20 05:45 Lymphocytes % 16.1 05/28/20 06:20 Monocytes % 9.2 05/28/20 06:20 Eosinophils % 3.6 05/28/20 06:20 Basophils % 0.1 05/28/20 06:20 Absolute Neutrophils 6.21 k/cumm (1.2-6.7) 05/28/20 06:20 Absolute Lymphocytes 1.42 k/cumm (1.2-3.4) 05/28/20 06:20 Absolute Monocytes 0.81 k/cumm (0.11-0.7) H 05/28/20 06:20 Absolute Eosinophils 0.32 k/cumm (0.0-0.7) 05/28/20 06:20 Absolute Basophils 0.01 k/cumm (0.0-0.2) 05/28/20 06:20 Differential Comment Manual differential 05/26/20 07:13 RBC Morphology Normal 05/26/20 07:13 Polychromasia Present 05/24/20 06:30 Hypochromasia 1+ 05/23/20 05:45 Anisocytosis 1+ 05/24/20 06:30 D-Dimer 2745 ng/mlFEU (<500) H 05/24/20 06:30 Sodium 138 mmol/L (136-145) 05/28/20 06:20 Potassium 3.7 mmol/L (3.5-5.1) 05/28/20 06:20 Chloride 106 mmol/L (98-107) 05/28/20 06:20 Carbon Dioxide 23.3 mmol/L (21.0-32.0) 05/28/20 06:20 Anion Gap 8.7 mmol/L (3-11) 05/28/20 06:20 BUN 27 mg/dL (7-18) H 05/28/20 06:20 Creatinine 0.85 mg/dL (0.55-1.02) 05/28/20 06:20 Estimated GFR/1.73 m2 >= 60.00 (mL/min/1.73m2) 05/28/20 06:20 Glucose 179 mg/dL (74-106) H 05/28/20 06:20 Lactate 1.5 mmol/L (0.6-1.4) H 05/24/20 06:30 Calcium 7.5 mg/dL (8.5-10.1) L 05/28/20 06:20 Phosphorus 3.4 mg/dL (2.6-4.7) 05/25/20 06:20 Magnesium 1.9 mg/dL (1.8-2.4) 05/28/20 06:20 Iron 138 ug/dL (50-170) 05/21/20 06:30 TIBC 141 ug/dL (250-450) L 05/21/20 06:30 Transferrin % Sat 98 % (15-50) H 05/21/20 06:30 Total Bilirubin 0.5 mg/dL (0.2-1.0) 05/24/20 06:30 AST 22 U/L (15-37) 05/24/20 06:30 ALT 18 U/L (14-59) 05/24/20 06:30 Alkaline Phosphatase 144 U/L (46-116) H 05/24/20 06:30 Troponin I < 0.05 ng/mL (<0.06) 05/14/20 19:15 C-Reactive Protein 12.88 mg/dL (0.0-0.3) H 05/24/20 06:30 Total Protein 5.0 g/dL (6.4-8.2) L 05/24/20 06:30 Albumin 1.4 g/dL (3.4-5.0) L 05/24/20 06:30 Lipase 56 U/L (73-393) 05/23/20 05:45 Urine Color Yellow (Yellow) 05/23/20 14:10 Urine Clarity Clear (Clear) 05/23/20 14:10 Urine pH 7.0 (5-8) 05/23/20 14:10 Ur Specific [place] 1.015 (1.005-1.025) 05/23/20 14:10 Urine Protein Negative mg/dL (Negative) 05/23/20 14:10 Urine Ketones Negative mg/dL (Negative) 05/23/20 14:10 Urine Blood Negative (Negative) 05/23/20 14:10 Urine Nitrite Negative (Negative) 05/23/20 14:10 Urine Bilirubin Negative (Negative) 05/23/20 14:10 Urine Urobilinogen 0.2 EU/dL (Up TO 0.2) 05/23/20 14:10 Ur Leukocyte Esterase Negative (Negative) 05/23/20 14:10 Urine Glucose Negative mg/dL (Negative) 05/23/20 14:10 COVID-19 PCR Negative (Negative) 05/14/20 17:30 Nasopharyn COVID-19 PCR Not Applicable 05/14/20 17:30 Ref Test Perform Site [facility] lab 05/14/20 17:30 Patient ABO/Rh B Negative 05/24/20 08:55 Antibody Screen Negative 05/24/20 08:55 Crossmatch See Detail 05/24/20 08:55
[2020-05-30] MEDS: Nystatin CREAM 30 GM TUBE TP (09:30)
--- NOTE | 2020-05-30 11:49 | PT.INTREAT ---
Date of service: 05/30/20 Time of Service: 11:00 PT Notes Visit Reasons: SMALL BOWEL OBSTRUCTION Inpatient Physical Therapy Treatment Note [facility] Date: 05/30/2020 SUBJECTIVE: Lisa states that she may go home tomorrow. She is not sure she is ready, but did not elaborate on that. OBJECTIVE: [] BED MOBILITY/TRANSFERS Sit-stand: SBA Stand-sit: SBA GAIT Assistive Device:FWW Weight bearing: FWB Assist:SBA Distance: 150' Deviation: WC to follow THEREX: global LE strengthening, see flowsheet for details. ASSESSMENT: doing well. Is walking about as much as she did pre admission, per subjective report. PLAN:continue per PT POC. Would recommend continued PT from , when she returns home. TREATMENT CODE/TIME: 30 min. [id number], [id number].
[2020-05-30 15:46] VITALS: BP 116/71; PULSE 88; RESP 19; TEMP 36.6; O2SAT 96
--- NOTE | 2020-05-30 15:58 | CMPROGNOTE_ITS ---
- If Service Date Differs Date of service: 05/30/20 Time of Service: 15:58 Care Management Progress Note S/O: No change in plan. Lisa is improving and discharge is being considered for Sunday. She is eating a bit more and has not had an episode of diarrhea since yesterday morning. Her son, Abdulaziz, was able to visit today. CM will continue to follow. A: Lisa is an 80 year old woman admitted on 05/14/20 with a partial SBO status post surgical intervention, partial bowel resection. P: No change in plan. Lisa will be discharged home when she is medically ready. She has caregiver through choices for care is addition to her family sup port. She is post op from a partial bowel resection. Lisa will need resumption of home health orders for nursing, and new home health orders for PT. She does not want to consider Hospice at this time and does not want palliative care. CM confirmed with family absolutely no SNF facility. CM will continue to follow and assess for ongoing discharge needs. Family to transport home via private car at time of discharge.
--- NOTE | 2020-05-30 19:06 | NUR.NOTE ---
Nursing Note: 1900 entered patient room to check on IV antibiotics. Asked Lisa how she was feeling. Lisa communicated that she Couldn't keep doing this and pointed to herself, the room, and the medical equipment. Lisa nodded yes when asked if she was feeling anxious and depressed.
[2020-05-30 22:55] VITALS: BP 106/63; PULSE 79; RESP 22; TEMP 37.3; O2SAT 95
[2020-05-31] MEDS: Vancomycin 125 MG CAP PO ×4 (00:14→18:32)
[2020-05-31 00:58] VITALS: TEMP 34
[2020-05-31] MEDS: metroNIDAZOLE 500 MG/100 ML BAG 100 MG IVPB ×2 (02:11→10:38)
[2020-05-31] MEDS: Normal Saline Flush 10 ML SYR IVP (02:11)
[2020-05-31 07:43] VITALS: TEMP 34
[2020-05-31 08:10] VITALS: BP 138/68; PULSE 82; RESP 18; TEMP 36.7; O2SAT 93
[2020-05-31] MEDS: Protein Nutritional Supplement 16 GM 1 OUNCE PACKET JT ×2 (08:10→20:19)
[2020-05-31] MEDS: Apixaban 5 MG TAB PO ×2 (08:11→20:20)
[2020-05-31] MEDS: Metoprolol CR 25 MG TABCR 12.5 MG PO ×2 (08:11→20:19)
[2020-05-31] MEDS: Ferrous Sulfate 325 MG TAB PO (08:11)
[2020-05-31] MEDS: Nystatin 500000 UNITS/5 ML SUSP 5ML CUP PO ×3 (08:11→20:20)
[2020-05-31] MEDS: Furosemide 40 MG TAB PO ×2 (08:11→16:17)
[2020-05-31] MEDS: Pantoprazole 40 MG TABCR PO (08:11)
[2020-05-31] MEDS: Nystatin CREAM 30 GM TUBE TP (08:12)
[2020-05-31] MEDS: Normal Saline Flush 10 ML SYR 20 ML IVP ×2 (08:12→20:20)
--- NOTE | 2020-05-31 10:58 | W.PM.PROGNOT ---
Date of Service Date of service: 05/31/20 Time of Service: 10:59 Assessment and Plan Assessment and plan (1) Physical deconditioning: Status: Acute (2) Oral thrush: Status: Acute (3) Atrial fibrillation with controlled ventricular rate: Status: Acute (4) Decubitus ulcer, stage I: Status: Acute Qualifiers: Pressure injury location: sacral region Qualified Code(s): L89.151 - Pressure ulcer of sacral region, stage 1 (5) Protein-calorie malnutrition, mild: Status: Acute (6) Anemia of chronic disease: Status: Acute (7) S/P small bowel resection: Status: Acute Assessment and plan: Patient is doing well from a surgical standpoint. Her trach site is well-healed. Patient cannot remove the cannula to clear his secretions herself. She panics and has a anxiety attack when she has sputum in the trach- she feels as if she cannot breathe and that she is choking today. Someone has to be around to clean out for her. She is requiring 24/7 care. She has very high anxiety over this. Family members also have much anxiety around her care and wellbeing. The daughter is concerned about transmitting C. difficile to caregivers. We will have her retested for C. difficile today. Patient also has 2 steps that she has to be able to climb over in order to get in her trailer. Her family does not want her to go to a alf because they do not feel that they would be able to adequately Take care of her. They should feel that she will and should be with her continuously to remove any mucous plug from trach, even though this is not realistic. Patient cannot take care of her treatment herself. She has been able to stand and walk by herself. She is a 1 assist in transfers. She has been tolerating soft diet. She is having 0-3 bowel movements a day. The fiber helped and she did not have any bowel movements on Sunday. But she is refusing to take it because she does not like the way it tastes. I did discuss her with physical therapy and we will have them evaluate to make sure she is able to climb 1-2 stairs and is safe to go home. We will retest her for C. difficile yvonne Rajput. We will do appropriate screen on her and in anticipation of perhaps going to a rehab. She was in a rehab facility immediately after surgery. Family was not happy with the care that she received. 35 minutes was spent with the patient today and coordinating care in anticipation of discharge on 06/01. Patient has a lot of anxiety and apprehension about going home and if they are going to be able to care for her. Her family members do not want her to go to a alf because they do not feel that they can adequately care for her. She only has nursing aides available from 8-4. And then the son and the daughter are alternating night cares with her. I really do not think that they are going to be able to care for her at home. Subjective Subjective Interval history since last seen: Pt is doing well. no headaches. No CP or SOB. no productive cough. no dysuria. no leg pain or swelling. x2 BM today - pudding consistency. no blood. pt had episode of emesis this am. She does have good BS. Pt has tremendous exacty about ting leaving. This may have contributed to the vomting. Exam HENMT Other: Trach site is clean dry and intact. There is no bleeding. Whitish coating on her tongue is resolved. Cardio Rate: regular rate Rhythm: abnormal rhythm Other: GI Other: Her incision is clean dry and intact. Her G-tube site is clean dry and intact as well. She has good bowel sounds she has no pain. She is stooling. Extrem Other: Edema and redness. The edema actually has gone down considerably from last week. The donor site for skin graft on the left leg is clean dry and intact and healing albeit very slowly She now has a stage I on her sacral area. The linear tear is closed up. Objective Objective Clinical Data: Vital Signs Temperature 36.7 C 05/31/20 08:10 Temperature Source Tympanic 05/31/20 08:10 Pulse 82 05/31/20 08:10 Pulse Rhythm Regular 05/31/20 01:00 Pulse 86 05/26/20 10:00 Respiratory Rate 18 05/31/20 08:10 Respiratory Effort Non-Labored 05/31/20 01:00 Respiratory Depth Normal 05/31/20 01:00 Respiratory Pattern Normal 05/31/20 01:00 Blood Pressure 138/68 05/31/20 08:10 Blood Pressure Mean 69 05/26/20 07:27 Blood Pressure Position Sitting 05/26/20 07:45 Pulse Oximetry 93 L 05/31/20 08:10 Oxygen Delivery Method Hi Flow System 05/31/20 08:10 Oxygen Flow Rate 30 05/31/20 07:43 Fraction of Inspired Oxygen (FIO2) 21 05/31/20 07:43 Pain Level 0 05/31/20 08:10 Comment 05/18/20 08:00 Intake & Output 05/30/20 05/30/20 05/31/20 11:59 23:59 11:59 Intake Total 580 / 960 380 / 960 100 / 100 Output Total 400 / 1700 1300 / 1700 1100 / 1100 Balance 180 / -740 -920 / -740 -1000 / -1000 Weight 83 kg 83.4 kg Intake: IV 340 / 480 140 / 480 100 / 100 Oral 240 / 480 240 / 480 Output: Gastric Drainage 0 / 0 Lt Upper Quadrant 0 / 0 Urine 400 / 1700 1300 / 1700 1100 / 1100 Other: Urine Color Straw Yellow Light Gabrielle Urine Appearance Clear Clear Clear Stool Size Moderate Stool Characteristics Soft Mucoid Brown Laboratory Results WBC 8.84 k/cumm (4.4-10.8) 05/28/20 06:20 RBC 3.10 m/cumm (4.00-5.20) L 05/28/20 06:20 Hgb 9.1 g/dL (12.0-15.5) L 05/28/20 06:20 Hct 29.3 % (36.0-46.0) L 05/28/20 06:20 MCV 94.5 fL (80-95) 05/28/20 06:20 MCH 29.4 pg (27.0-33.0) 05/28/20 06:20 MCHC 31.1 g/dL (32.0-36.0) L 05/28/20 06:20 RDW 16.0 % (11.7-14.6) H 05/28/20 06:20 Plt Count 353 x1000/uL (130-400) 05/28/20 06:20 MPV 9.9 fL (8.0-11.0) 05/28/20 06:20 Immature Gran % 0.8 % 05/28/20 06:20 Neutrophils % 70.2 05/28/20 06:20 Band Neutrophils % 5.0 % 05/23/20 05:45 Lymphocytes % 16.1 05/28/20 06:20 Monocytes % 9.2 05/28/20 06:20 Eosinophils % 3.6 05/28/20 06:20 Basophils % 0.1 05/28/20 06:20 Absolute Neutrophils 6.21 k/cumm (1.2-6.7) 05/28/20 06:20 Absolute Lymphocytes 1.42 k/cumm (1.2-3.4) 05/28/20 06:20 Absolute Monocytes 0.81 k/cumm (0.11-0.7) H 05/28/20 06:20 Absolute Eosinophils 0.32 k/cumm (0.0-0.7) 05/28/20 06:20 Absolute Basophils 0.01 k/cumm (0.0-0.2) 05/28/20 06:20 Differential Comment Manual differential 05/26/20 07:13 RBC Morphology Normal 05/26/20 07:13 Polychromasia Present 05/24/20 06:30 Hypochromasia 1+ 05/23/20 05:45 Anisocytosis 1+ 05/24/20 06:30 D-Dimer 2745 ng/mlFEU (<500) H 05/24/20 06:30 Sodium 138 mmol/L (136-145) 05/28/20 06:20 Potassium 3.7 mmol/L (3.5-5.1) 05/28/20 06:20 Chloride 106 mmol/L (98-107) 05/28/20 06:20 Carbon Dioxide 23.3 mmol/L (21.0-32.0) 05/28/20 06:20 Anion Gap 8.7 mmol/L (3-11) 05/28/20 06:20 BUN 27 mg/dL (7-18) H 05/28/20 06:20 Creatinine 0.85 mg/dL (0.55-1.02) 05/28/20 06:20 Estimated GFR/1.73 m2 >= 60.00 (mL/min/1.73m2) 05/28/20 06:20 Glucose 179 mg/dL (74-106) H 05/28/20 06:20 Lactate 1.5 mmol/L (0.6-1.4) H 05/24/20 06:30 Calcium 7.5 mg/dL (8.5-10.1) L 05/28/20 06:20 Phosphorus 3.4 mg/dL (2.6-4.7) 05/25/20 06:20 Magnesium 1.9 mg/dL (1.8-2.4) 05/28/20 06:20 Iron 138 ug/dL (50-170) 05/21/20 06:30 TIBC 141 ug/dL (250-450) L 05/21/20 06:30 Transferrin % Sat 98 % (15-50) H 05/21/20 06:30 Total Bilirubin 0.5 mg/dL (0.2-1.0) 05/24/20 06:30 AST 22 U/L (15-37) 05/24/20 06:30 ALT 18 U/L (14-59) 05/24/20 06:30 Alkaline Phosphatase 144 U/L (46-116) H 05/24/20 06:30 Troponin I < 0.05 ng/mL (<0.06) 05/14/20 19:15 C-Reactive Protein 12.88 mg/dL (0.0-0.3) H 05/24/20 06:30 Total Protein 5.0 g/dL (6.4-8.2) L 05/24/20 06:30 Albumin 1.4 g/dL (3.4-5.0) L 05/24/20 06:30 Lipase 56 U/L (73-393) 05/23/20 05:45 Urine Color Yellow (Yellow) 05/23/20 14:10 Urine Clarity Clear (Clear) 05/23/20 14:10 Urine pH 7.0 (5-8) 05/23/20 14:10 Ur Specific [place] 1.015 (1.005-1.025) 05/23/20 14:10 Urine Protein Negative mg/dL (Negative) 05/23/20 14:10 Urine Ketones Negative mg/dL (Negative) 05/23/20 14:10 Urine Blood Negative (Negative) 05/23/20 14:10 Urine Nitrite Negative (Negative) 05/23/20 14:10 Urine Bilirubin Negative (Negative) 05/23/20 14:10 Urine Urobilinogen 0.2 EU/dL (Up TO 0.2) 05/23/20 14:10 Ur Leukocyte Esterase Negative (Negative) 05/23/20 14:10 Urine Glucose Negative mg/dL (Negative) 05/23/20 14:10 COVID-19 PCR Negative (Negative) 05/14/20 17:30 Nasopharyn COVID-19 PCR Not Applicable 05/14/20 17:30 Ref Test Perform Site [facility] lab 05/14/20 17:30 Patient ABO/Rh B Negative 05/24/20 08:55 Antibody Screen Negative 05/24/20 08:55 Crossmatch See Detail 05/24/20 08:55
--- NOTE | 2020-05-31 11:11 | PDOC.HHF2F_ITS ---
Home Health Certification Home Health Certification: 1. Encounter Date and Reason I certify that AGUS MORELAND was seen by Winnie Cody on 05/31/20 and that I had a [id number] encounter with this patient that meets the physician face to face encounter requirements. 2. Clinical Findings Supporting Skilled Need and Homebound Status I certify that home health services are medically necessary, include either intermittent retirement and/or physical/speech therapy, and that this patient is homebound in that absences from the home require considerable and taxing effort and are infrequent or of short duration, or are attributable to the need to receive medical care. [X] (a) Attached documentation from encounter provides clinical findings supporting skilled need and homebound status (including what assistance patient requires to leave the home). The encounter with the patient was in whole, or in part, for the following medical condition, which is the primary reason for home health care: SMALL BOWEL OBSTRUCTION Penitentiary: will require RN for every other day change of dressing on sacrum adn LLE- donor site Physical Therapy:required for deconditioning Speech Therapy: Homebound: pt cannot drive and certainly is very difficult to transport. 3. Certification and Authentication I certify that I composed the above information based on my clinical judgement relating to this patient's medical condition and, if applicable, clinical findings communicated to me by the NPP or inpatient physician who performed the Home Health Referral. All further orders will be obtained through (Community Based Physician - PCP)
--- NOTE | 2020-05-31 14:30 | PT.INTREAT ---
Date of service: 05/31/20 Time of Service: 14:00 PT Notes Visit Reasons: SMALL BOWEL OBSTRUCTION Inpatient Physical Therapy Treatment Note [facility] Date: 05/31/2020 SUBJECTIVE: I am not doing anything this am. I am not feeling well, my legs hurt. Lisa just got back into bed with legs elevated. She agrees to pm session. OBJECTIVE: [] PAIN: c/o bilateral lower leg pain. raw BED MOBILITY/TRANSFERS Supine-sit: SBA Sit-supine: min A with LE Sit-stand: SBA Stand-sit: SBA GAIT Assistive Device: FWW Weight bearing: FWB Assist: SBA Distance: 150' THEREX: brief global LE strengthening, see flowsheet for details. STAIRS:3-4 steps using 2 railings and CGA. ASSESSMENT: definitely not her self today. I noted an increase in cough and phlegm. Increased c/o soreness in her bilateral LE. I did note them to have less swelling, however increase in redness. She was fearful of the stairs, but did well. PLAN: possible d/c to home tomorrow. TREATMENT CODE/TIME: 25 min in pm. [id number].
--- NOTE | 2020-05-31 14:51 | CMPROGNOTE_ITS ---
Care Management Progress Note S/O: Lisa was lying in bed; discharge plan reviewed and Lisa nodded her agreement and confirmed planning. CM continues to follow. A: Lisa is an 80 year old woman admitted on 05/14/20 with a partial SBO status post surgical intervention, partial bowel resection. P: No change in plan. Lisa will be discharged home when she is medically ready. She has caregiver services through [facility] in addition to family support. Lisa will require new home health orders, completed today by Dr. De Los Santos. She does not want to consider Hospice at this time, does not want palliative care, and adamantly refuses SNF facility. CM continues to follow. F amily to transport home via private vehicle upon discharge.
[2020-05-31 15:40] VITALS: BP 115/72; PULSE 78; RESP 19; TEMP 35.9; O2SAT 95
[2020-05-31 19:15] VITALS: BP 101/63; PULSE 71; RESP 19; TEMP 36.6; O2SAT 97
[2020-05-31] MEDS: Psyllium PKT 1 EACH PO (20:21)
[2020-05-31 22:01] LABS: C Difficile PCR Negative (Negative)
[2020-05-31 23:51] VITALS: TEMP 34
--- NOTE | 2020-05-31 23:53 | NUR.NOTE ---
Bilat lower extremity red, hot, painful and swollen. Pt cannot tolerate TEAGAN stockings or SCDs. This RN place zinc cream, ABD pads and george wraps with mild compression, pt states comfortable.Nursing Note:
[2020-06-01] MEDS: Vancomycin 125 MG CAP PO ×3 (00:28→12:33)
[2020-06-01 07:32] VITALS: BP 122/67; PULSE 81; RESP 20; TEMP 36.9; O2SAT 93
--- NOTE | 2020-06-01 08:31 | W.PM.PROGNOT ---
Date of Service Date of service: 06/01/20 Time of Service: 08:00 Assessment and Plan Assessment and plan (1) Physical deconditioning: Status: Acute Assessment and plan: Continue Pt through Home Health (2) Oral thrush: Status: Acute Assessment and plan: resolved (3) Atrial fibrillation with controlled ventricular rate: Status: Acute Assessment and plan: on her anticoagulation (4) Decubitus ulcer, stage I: Status: Acute Assessment and plan: healing Qualifiers: Pressure injury location: sacral region Qualified Code(s): L89.151 - Pressure ulcer of sacral region, stage 1 (5) Protein-calorie malnutrition, mild: Status: Acute (6) Anemia of chronic disease: Status: Acute (7) S/P small bowel resection: Status: Acute Assessment and plan: Patient is doing well from a surgical standpoint. Her trach site is well-healed. Patient cannot remove the cannula to clear his secretions herself. She panics and has a anxiety attack when she has sputum in the trach- she feels as if she cannot breathe and that she is choking today. Someone has to be around to clean out for her. She is requiring 24/7 care. She has very high anxiety over this. Family members also have much anxiety around her care and wellbeing. The daughter is concerned about transmitting C. difficile to caregivers. Repeat C. difficile was negative. Patient also has 2 steps that she has to be able to climb over in order to get in her trailer. Her family does not want her to go to a intermediate because they do not feel that they would be able to adequately Take care of her. They should feel that she will and should be with her continuously to remove any mucous plug from trach, even though this is not realistic. Patient cannot take care of her treatment herself. She has been able to stand and walk by herself. She is a 1 assist in transfers. She has been tolerating soft diet. She is having 0-3 bowel movements a day. The fiber helped and she did not have any bowel movements on Sunday. Metamucil is helping with her BM's I did discuss her with physical therapy and we will have them evaluate to make sure she is able to climb 1-2 stairs and is safe to go home. 35 minutes was spent with the patient today and coordinating care in anticipation of discharge on 06/01. Will D/C today Subjective Subjective Interval history since last seen: Lisa is in bed today. She looks well. She is eating and having BM's. She did end up taking the metamucil last night which helped her BM's. Her C.Diff recheck was negative. She is medically ready to be discharged to home of SNF. Patient refuses SNF and services are available at home. Exam Const General: cooperative, comfortable and no acute distress Orientation: alert and oriented x3 HENMT Head: normocephalic and atraumatic Resp Effort & Inspection: normal respiratory effort Auscultation: clear to auscultation bilaterally Cardio Rate: regular rate Rhythm: regular rhythm GI Inspection: normal to inspection and incision (c/d/i. [place] in place.) Palpation: soft and nontender Objective Objective Clinical Data: Vital Signs Temperature 98.4 F 06/01/20 07:32 Temperature Source Tympanic 06/01/20 07:32 Pulse 81 06/01/20 07:32 Pulse Rhythm Regular 05/31/20 20:00 Pulse 86 05/26/20 10:00 Respiratory Rate 20 06/01/20 07:32 Respiratory Effort Non-Labored 05/31/20 20:00 Respiratory Depth Normal 05/31/20 20:00 Respiratory Pattern Normal 05/31/20 20:00 Blood Pressure 122/67 06/01/20 07:32 Blood Pressure Mean 69 05/26/20 07:27 Blood Pressure Position Sitting 05/26/20 07:45 Pulse Oximetry 93 L 06/01/20 07:32 Oxygen Delivery Method Room Air 06/01/20 07:32 Oxygen Flow Rate 0 06/01/20 07:32 Fraction of Inspired Oxygen (FIO2) 21 05/31/20 23:51 Pain Level 0 06/01/20 07:32 Comment 05/18/20 08:00 Intake & Output 05/31/20 05/31/20 06/01/20 11:59 23:59 11:59 Intake Total 350 / 690 340 / 690 Output Total 1100 / 2100 1000 / 2100 1150 / 1150 Balance -750 / -1410 -660 / -1410 -1150 / -1150 Weight 183 lb 13.848 oz 180 lb 5.41 oz Intake: IV 130 / 130 Oral 220 / 560 340 / 560 Output: Urine 1100 / 2100 1000 / 2100 1150 / 1150 Other: Urine Color Light Gabrielle Yellow Straw Urine Appearance Clear Clear Clear Stool Size Moderate Small Stool Characteristics Soft Soft Mucoid Brown Laboratory Results WBC 8.84 k/cumm (4.4-10.8) 05/28/20 06:20 RBC 3.10 m/cumm (4.00-5.20) L 05/28/20 06:20 Hgb 9.1 g/dL (12.0-15.5) L 05/28/20 06:20 Hct 29.3 % (36.0-46.0) L 05/28/20 06:20 MCV 94.5 fL (80-95) 05/28/20 06:20 MCH 29.4 pg (27.0-33.0) 05/28/20 06:20 MCHC 31.1 g/dL (32.0-36.0) L 05/28/20 06:20 RDW 16.0 % (11.7-14.6) H 05/28/20 06:20 Plt Count 353 x1000/uL (130-400) 05/28/20 06:20 MPV 9.9 fL (8.0-11.0) 05/28/20 06:20 Immature Gran % 0.8 % 05/28/20 06:20 Neutrophils % 70.2 05/28/20 06:20 Band Neutrophils % 5.0 % 05/23/20 05:45 Lymphocytes % 16.1 05/28/20 06:20 Monocytes % 9.2 05/28/20 06:20 Eosinophils % 3.6 05/28/20 06:20 Basophils % 0.1 05/28/20 06:20 Absolute Neutrophils 6.21 k/cumm (1.2-6.7) 05/28/20 06:20 Absolute Lymphocytes 1.42 k/cumm (1.2-3.4) 05/28/20 06:20 Absolute Monocytes 0.81 k/cumm (0.11-0.7) H 05/28/20 06:20 Absolute Eosinophils 0.32 k/cumm (0.0-0.7) 05/28/20 06:20 Absolute Basophils 0.01 k/cumm (0.0-0.2) 05/28/20 06:20 Differential Comment Manual differential 05/26/20 07:13 RBC Morphology Normal 05/26/20 07:13 Polychromasia Present 05/24/20 06:30 Hypochromasia 1+ 05/23/20 05:45 Anisocytosis 1+ 05/24/20 06:30 D-Dimer 2745 ng/mlFEU (<500) H 05/24/20 06:30 Sodium 138 mmol/L (136-145) 05/28/20 06:20 Potassium 3.7 mmol/L (3.5-5.1) 05/28/20 06:20 Chloride 106 mmol/L (98-107) 05/28/20 06:20 Carbon Dioxide 23.3 mmol/L (21.0-32.0) 05/28/20 06:20 Anion Gap 8.7 mmol/L (3-11) 05/28/20 06:20 BUN 27 mg/dL (7-18) H 05/28/20 06:20 Creatinine 0.85 mg/dL (0.55-1.02) 05/28/20 06:20 Estimated GFR/1.73 m2 >= 60.00 (mL/min/1.73m2) 05/28/20 06:20 Glucose 179 mg/dL (74-106) H 05/28/20 06:20 Lactate 1.5 mmol/L (0.6-1.4) H 05/24/20 06:30 Calcium 7.5 mg/dL (8.5-10.1) L 05/28/20 06:20 Phosphorus 3.4 mg/dL (2.6-4.7) 05/25/20 06:20 Magnesium 1.9 mg/dL (1.8-2.4) 05/28/20 06:20 Iron 138 ug/dL (50-170) 05/21/20 06:30 TIBC 141 ug/dL (250-450) L 05/21/20 06:30 Transferrin % Sat 98 % (15-50) H 05/21/20 06:30 Total Bilirubin 0.5 mg/dL (0.2-1.0) 05/24/20 06:30 AST 22 U/L (15-37) 05/24/20 06:30 ALT 18 U/L (14-59) 05/24/20 06:30 Alkaline Phosphatase 144 U/L (46-116) H 05/24/20 06:30 Troponin I < 0.05 ng/mL (<0.06) 05/14/20 19:15 C-Reactive Protein 12.88 mg/dL (0.0-0.3) H 05/24/20 06:30 Total Protein 5.0 g/dL (6.4-8.2) L 05/24/20 06:30 Albumin 1.4 g/dL (3.4-5.0) L 05/24/20 06:30 Lipase 56 U/L (73-393) 05/23/20 05:45 Urine Color Yellow (Yellow) 05/23/20 14:10 Urine Clarity Clear (Clear) 05/23/20 14:10 Urine pH 7.0 (5-8) 05/23/20 14:10 Ur Specific [place] 1.015 (1.005-1.025) 05/23/20 14:10 Urine Protein Negative mg/dL (Negative) 05/23/20 14:10 Urine Ketones Negative mg/dL (Negative) 05/23/20 14:10 Urine Blood Negative (Negative) 05/23/20 14:10 Urine Nitrite Negative (Negative) 05/23/20 14:10 Urine Bilirubin Negative (Negative) 05/23/20 14:10 Urine Urobilinogen 0.2 EU/dL (Up TO 0.2) 05/23/20 14:10 Ur Leukocyte Esterase Negative (Negative) 05/23/20 14:10 Urine Glucose Negative mg/dL (Negative) 05/23/20 14:10 Stl C.difficile Tox PCR Negative (Negative) 05/31/20 11:00 COVID-19 PCR Negative (Negative) 05/14/20 17:30 Nasopharyn COVID-19 PCR Not Applicable 05/14/20 17:30 Ref Test Perform Site [facility] lab 05/14/20 17:30 Patient ABO/Rh B Negative 05/24/20 08:55 Antibody Screen Negative 05/24/20 08:55 Crossmatch See Detail 05/24/20 08:55
[2020-06-01] MEDS: Nystatin 500000 UNITS/5 ML SUSP 5ML CUP PO ×2 (08:39→14:04)
[2020-06-01] MEDS: Protein Nutritional Supplement 16 GM 1 OUNCE PACKET JT (08:39)
[2020-06-01] MEDS: Furosemide 40 MG TAB PO ×2 (08:40→15:09)
[2020-06-01] MEDS: Pantoprazole 40 MG TABCR PO (08:40)
[2020-06-01] MEDS: Ferrous Sulfate 325 MG TAB PO (08:40)
[2020-06-01] MEDS: Metoprolol CR 25 MG TABCR 12.5 MG PO (08:41)
[2020-06-01] MEDS: Apixaban 5 MG TAB PO (08:41)
[2020-06-01] MEDS: Psyllium PKT 1 EACH PO (08:42)
[2020-06-01] MEDS: Normal Saline Flush 10 ML SYR 20 ML IVP (08:44)
[2020-06-01] MEDS: Nystatin CREAM 30 GM TUBE TP (08:48)
--- NOTE | 2020-06-01 12:15 | DSE_ITS ---
Date of service: 06/01/20 Time of Service: 12:15 DS: Diagnosis Discharge Diagnosis (1) Physical deconditioning: Status: Acute (2) Oral thrush: Status: Acute (3) Atrial fibrillation with controlled ventricular rate: Status: Acute (4) Decubitus ulcer, stage I: Status: Acute (5) Protein-calorie malnutrition, mild: Status: Acute (6) Anemia of chronic disease: Status: Acute (7) S/P small bowel resection: Status: Acute Discharge Plan Disposition Patient Disposition: HOME W/HOME HEALTH SERVICE Condition: Stable Discharge Details Chief Complaint: GenMedical Clinical Impression: Partial obstruction of small intestine Reason For Visit: SMALL BOWEL OBSTRUCTION, C. Diff colitis Admit Date/Time: 05/14/20 17:08 Admit Provider: Haydee Morrow Attending Provider: Haydee Morrow Primary Care Provider: Caridad Sánchez ED Provider: [facility] Course Hospital Course: Mrs. Anderson is a 81-year-old female who was admitted on May [address] Bull for a small bowel obstruction. On postadmission day #3 the patient had not progressed at all with her small bowel obstruction so she was taken to the operating room. Dr. Bull it started out with a laparoscopy and noted that there was a band around a piece of small bowel and it looked ischemic so the procedure was converted to a exploratory laparotomy with lysis of adhesion and resection of a small portion of the small bowel with anastomosis. The patient did quite well for the first 4 days after surgery she was getting her strength back and eating. Her white count was normalizing. By May 23 she started to feel ill, she was having profuse diarrhea, and her white count was going up. Her stool was sent for C. difficile which came back positive on May 24. The patient was started on IV Flagyl and p.o. vancomycin. She was also started on TPN for caloric malnutrition. Patient still had a G-tube in place from her laryngectomy surgery 8 months prior. As her small bowel obstruction was resolved at this point and she was having diarrhea the patient was switched over from TPN to tube feedings. The patient was restarted on p.o. intake as well and tube feeding was slowly reduced in order for the patient to feel hungry and start eating. Her diarrhea was getting better although she was still having some liquid stools. She was started on Metamucil on May 29 which help with her diarrhea. By May 31 she was medically ready to be discharged but family was concer celestina about the fact that she was still having diarrhea and requested an another C. difficile test. This came back today June 01 as negative. The patient is up and walking. Her edema has decreased significantly although she still has some edema in her lower extremities. Wound care at the hospital recommended Unna boots as they did not feel that she could tolerate compression stockings yet. Unna boots were applied prior to discharge. Patient is discharged to home with home health services. She still has her desire and we will have her follow-up with Dr. Bull for staple removal. Home Meds and New Rx's Prescriptions: New nystatin 100,000 unit/mL Suspension 500,000 units PO TID Qty: 60 RF: 0 ferrous sulfate 325 mg (65 mg iron) Tablet 325 mg PO DAILY Qty: 90 RF: 0 hydrocodone-acetaminophen 7.5-325 mg/15 mL Solution 10 - 15 ml J-tube Q6H PRN PRNQty: 240 RF: 0 Metamucil Sugar-Free (aspart) 3.4 gram/5.8 gram Powder 3.4 gm PO BID Qty: 283 RF: 0 Bio-K plus 50 billion cell Capsule,Delayed Release(Dr/Ec) 1 cap PO DAILY Qty: 90 RF: 0 vancomycin 125 mg Capsule 125 mg PO Q6H Qty: 28 RF: 0 Continued metoclopramide HCl [Reglan] 5 mg tablet 5 mg PO BID Qty: 180 RF: 4 ipratropium-albuterol 0.5 mg-3 mg(2.5 mg base)/3 mL solution for nebulization 3 ml IH QID PRN (Reason: wheezing. J44.9) Qty: 180 RF: 8 guaifenesin [Tussin Mucus-Chest Congestion] 100 mg/5 mL liquid 400 mg PO BID Qty: 1000 RF: 0 metoprolol succinate 25 mg tablet extended release 24 hr 12.5 mg PO BID Qty: 90 RF: 4 Eliquis 5 mg tablet 5 mg PO BID Qty: 180 RF: 12 furosemide 40 mg tablet 40 mg PO DAILY RF: 0 potassium chloride 40 mEq/15 mL liquid 40 meq PO DAILY Qty: 473 RF: 0 Discharge Instructions Additional Instructions: Activity at Home after surgery: As tolerated Diet, Nutrition, & wound healin. Avoid alcohol until after you are recovered from your surgery 2. Make sure to eat plenty of lean protein (meat, fish, eggs, cottage cheese, beans) 3. Eat a variety of fruits and vegetables. Eat plenty of high fiber foods to avoid constipation. 4. Drink plenty of liquids to stay hydrated and avoid constipation Pain Medications: 1. Tylenol 650 mg every 6 hours for moderate pain 2. If a narcotic has been prescribed take as directed only for breakthrough pain For Constipation: 1. Take Milk of Magnesia or MiraLax as needed for constipation For Diarrhea: 1. Metamucil 2 x a day Other: 1. You may shower daily. Do not scrub the incisions 2. Do not soak the incisions for 1 week 3. You may alternate ice and heat as needed for pain and swelling Wound Care: 1. Keep the incisions clean and dry Other Services that have been ordered: 1. Home Health- to help with dressing changes 2. Outpatient physical therapy Please call our office if you develop: 1. Fevers >101.5 2. Nausea or Vomiting 3. Worsening pain 4. Redness and thick discharge from the wounds If after hours please call the Hospital at and ask to speak to the on-call surgeon Referrals: Caridad Sánchez MD, [place] [Primary Care Provider] - (7-10 days) Haydee Morrow MD [ [facility] STAFF PHYSICIAN] - 06/07/20 1:00 pm Activity:: Activity as Tolerated Equipment/Supplies:: No Equipment Needed Diet:: As Tolerated DS: Summary Status at Discharge Functional status at discharge: independent ambulation Overall status at discharge: patient is progressing back to baseline Mental Status: mental status grossly normal Speech and Movement: speech and movement normal Mood: congruent mood Affect: normal affect Exam Resp Effort & Inspection: normal respiratory effort Auscultation: clear to auscultation bilaterally Cardio Rate: regular rate Rhythm: regular rhythm GI Inspection: incision (c/d/i, desire in place) Palpation: soft and nontender Psych Mental Status: mental status grossly normal Speech and Movement: speech and movement normal Mood: congruent mood Affect: normal affect DS: Data Vitals/I&O Vitals and I&O: Vital Signs Temperature 98.4 F 06/01/20 07:32 Temperature Source Tympanic 06/01/20 07:32 Pulse 81 06/01/20 07:32 Pulse Rhythm Regular 06/01/20 09:46 Pulse 86 05/26/20 10:00 Respiratory Rate 20 06/01/20 07:32 Respiratory Effort 06/01/20 09:46 Respiratory Depth Normal 06/01/20 09:46 Respiratory Pattern Normal 06/01/20 09:46 Blood Pressure 122/67 06/01/20 07:32 Blood Pressure Mean 69 05/26/20 07:27 Blood Pressure Position Sitting 05/26/20 07:45 Pulse Oximetry 93 L 06/01/20 07:32 Oxygen Delivery Method Room Air 06/01/20 07:32 Oxygen Flow Rate 0 06/01/20 07:32 Fraction of Inspired Oxygen (FIO2) 21 05/31/20 23:51 Pain Level 0 06/01/20 09:40 Comment 05/18/20 08:00 Intake & Output 05/31/20 06/01/20 06/01/20 23:59 11:59 23:59 Intake Total 340 / 690 240 / 240 Output Total 1000 / 2100 1450 / 1450 Balance -660 / -1410 -1210 / -1210 Weight 180 lb 5.41 oz Intake: Oral 340 / 560 240 / 240 Output: Gastric Drainage 0 / 0 Lt Upper Quadrant 0 / 0 Urine 1000 / 2100 1450 / 1450 Other: Urine Color Yellow Yellow Urine Appearance Clear Clear Urine Odor Normal Comment dark yellow, Stool Size Small Stool Characteristics Soft Voiding Methods Bedside Commode Data Completed and Pending Labs on day of discharge: Labs from last 24 hours 05/31/20 11:00 Stl C.difficile Tox PCR Negative [facility] Medical History Adynamic ileus (Resolved) Anemia due to blood loss, acute (Acute) Atrial fibrillation with controlled ventricular rate (Acute) Benign paroxysmal vertigo Benign paroxysmal vertigo, unspecified ear (Resolved) Cataract (Resolved) O.U 02/24/14; Dr. Martin left extraction 03/10/14; Dr. 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 L hip-mild acetabular spurring 2014 - severe arthritis at facet joints Lumbago Nausea and vomiting (Inactive) Neutrophilic leukocytosis (Acute) Oral thrush (Acute) Oral ulcer (Resolved) 12/07/16 Peripheral edema (Chronic 07/31/16) Peripheral venous insufficiency (Chronic 12/03/08) edema Physical deconditioning (Acute) Pneumonia of right lower lobe due to infectious organism (Resolved) Polyp of colon (Resolved) colonoscopy of 01/09/11-multiple polyps at multiple locations. 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 Very hard to reg ulate and cannot afford alternatives. Understands the risks. Repeat again - PE. back on anticoagualtion Seizure (Resolved) ? 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 NEG ECHO 2000 Urinary incontinence (Chronic 11/10/14) Vaginal lesion (Resolved) 03/22/16 Venous insufficiency Visual disturbance (Resolved) etiology unclear per -exam of 03/14/11 Vitamin D deficiency Vitamin D deficiency (Chronic 03/11/09) Vulvovaginitis (Resolved) Surgical History Extraction of cataract 02/24/14; LEFT EYE 03/10/14; RIGHT EYE History of bilateral tubal ligation (Resolved) History of laryngectomy (Acute) Ligation of fallopian tube Status post gastrostomy (Acute) Status post tracheostomy (Acute) Family History Mother , 85 Vaginal cancer Father , 74 Heart disease COPD (chronic obstructive pulmonary disease) Sister , 63 Heart disease ASHD/CHF Lung cancer Maternal Grandmother Heart disease Paternal Grandmother Diabetes Son , 40 Substance abuse Heart disease Sister No problems noted. Sister No problems noted. Son RA (rheumatoid arthritis) Daughter No problems noted. Daughter No problems noted. Paternal Grandfather , 80 No problems noted. Social History Smoking/Tobacco Use Status: Former Tobacco Use Quit Date: 06/05/01 Second Hand Exposure: Yes Alcohol Intake: former Drug use: Never Substance use type: does not use Caregiver/Support person: No Household members: none Housing: house Do you need help understanding health information?: Rarely Pets and animals: No Sexually active: No Current gender identity: female What is your relationship status?: How often do you talk on the phone with friends or family?: decline to answer How often do you get together with friends or relatives?: once per week How often do you attend orthodox or orthodox services?: decline to answer Do you belong to any clubs or organized social groups?: no Panel score (0-1 are the most socially isolated patients): 0 What type of physical activity do you participate in: decline to answer Duration: decline to answer Frequency: decline to answer Bethany/Lutheran: Tenriism Special bethany needs: No Seatbelt use: always Helmet use: No Drive intox or ride w/intox bobcat driver/labor: No Do you feel safe at home: Yes Do you feel safe in your relationship?: Yes
--- NOTE | 2020-06-01 13:56 | PDOC.CMDIS ---
- If Service Date Differs Date of service: 06/01/20 Time of Service: 13:56 LACE Index Scoring Tool - Questions: Length of Stay (in days): 7 - 13 Acuity (Admit via E.D.?): Yes Comorbidities: Congestive Heart Failure E.D. Visits: 8 - Answers: Total Score: 14 Risk of Readmission: High Risk Care Management Discharge Reason for Hospitalization: SBO Discharge Plan: Lisa is being discharged home today new home health services for RN, PT and wound care. CM has contacted her daughter Trini and her son Sb, CM attempted to contact Jasmin there was no answer. CM reviewed medication changes and wound care over the phone with daughter Trini who provides car to her Mom in the home. CM provided update to the family including education r/t to the discharge plan. RT met with patient and reviewed supplies prior to discharge. Son Sb will transport home. Patient/Family Education Needs: Discharge education, limitations and follow up plan of care including ask me three and self management. Family will be part of the discharge and instructions. Services Needed at Discharge: Home Health Care Services, Oxygen Therapy, Physical Therapy
[2020-06-01] MEDS: Bacitracin 1 PACKET (15:00)
--- NOTE | 2020-06-02 14:02 | PT.INDS ---
Date of service: 06/02/20 Time of Service: 14:02 PT Notes Visit Reasons: SMALL BOWEL OBSTRUCTION, C. Diff colitis Inpatient Physical Therapy Discharge Summary Dates: 06/02/2020 Dates of Service: 05/19/2020 through 05/31/2020 This is a clinical summary of care provided on the duration of dates listed above. No charge was made in the completion of this documentation. Referring Doctor: Haydee Morrow MD PT Orders: PT CONSULT: Eval/treat Precautions: Fall. Standard. Activity as tolerated. Patient Profile/Admitting Diagnosis: Patient is an 80-year-old female with a past medical history history of pulmonary embolism, squamous cell carcinoma, vocal cord carcinoma, and s/p radiation, s/p laryngectomy and thyroidectomy, and tracheostomy placement. She presented to the ED on 05/14/2020 with chief presentation of vomiting and abdominal pain. Patient was diagnosed with partial obstruction of small intestine and is status post laparoscopy and small bowel resection. Subjective: NT. See most recent MEDICAL DEVICE SALES REPRESENTATIVE notes. Objective: General Observation: NT. See most recent MEDICAL DEVICE SALES REPRESENTATIVE notes. Mental Status: NT. See most recent MEDICAL DEVICE SALES REPRESENTATIVE notes. Pain: NT. See most recent MEDICAL DEVICE SALES REPRESENTATIVE notes. ROM: Right Upper Extremity: Shoulder Flexion allows up to 90 degrees. Shoulder abduction allows up to 90 degrees. Elbow flexion WFL. Wrist flexion WFL. Opening and closing of hand WFL. Left Upper Extremity: Shoulder Flexion allows up to 90 degrees. Shoulder abduction allows up to 90 degrees. Elbow flexion WFL. Wrist flexion WFL. Opening and closing of hand WFL. Right Lower Extremity: Hip flexion WFL. Hip abduction WFL. Knee flexion WFL. Ankle dorsiflexion WFL. Ankle plantarflexion WFL. Left Lower Extremity: Hip flexion WFL. Hip abduction WFL. Knee flexion WFL. Ankle dorsiflexion WFL. Ankle plantarflexion WFL. Strength: Right Upper Extremity: Shoulder flexors 3-/5. Shoulder abductors 3+/5. Elbow flexors 4-/5. Elbow extensors 4-5. Office Services Clerk strong. Left Upper Extremity: Shoulder flexors 3-/5. Shoulder abductors 3+/5. Elbow flexors 4-/5. Elbow extensors 4-/5. Office Services Clerk strong. Right Lower Extremity: Hip flexors 3+/5. Hip abductors 4-/5. Knee flexors 4-/5. Knee extensors 4-/5. Ankle dorsiflexors 4-/5. Ankle plantarflexors 4-/5. Left Lower Extremity: Hip flexors 3+/5. Hip abductors 4-/5. Knee flexors 4-/5. Knee extensors 4-/5. Ankle dorsiflexors 4-/5. Ankle plantarflexors 4-/5. Sensation: Intact as to pain and pressure on bilateral lower extremities. Bed Mobility/Transfers: Sit to supine: Standby assist Sit to stand standby assist Stand to sit standby assist Bed to chair standby assist Chair to bed standby assist Gait: 150 feet using front wheeled walker with full weight-bearing requiring SBA. Increasing abdiaziz. Forward head posture. Thoracic kyphosis. Balance: Static Sitting: Good Dynamic Sitting: Fair Static Standing: Poor Dynamic Standing: Poor Assessment: Lisa demonstrates significant functional mobility decline requiring the use of front wheeled walker and assistance of 2 people for safety, unsteadiness on feet, impaired balance, generalized muscle weakness, decreased activity tolerance, and increased fall risk due to postoperative status and comorbid conditions. She has demonstrated meaningful functional mobility gains during this episode of care will require continued skilled services once discharged to home. Patient is to present with clinical signs and symptoms consistent with current/admitting diagnoses that have resulted to mobility limitations, gait instability, and generalized weakness as demonstrated by the following impairment level findings: 1. Decreased strength to B UE/LE major muscle groups 2. Impaired standing balance 3. Impaired activity tolerance Impairments are continuing to contribute to the following functional limitations: 1. Inability to safely ambulate without assistive device and physical assistance 2. Increase completion time for mobility ADL performance 3. Increased fall risk Goals: Goals X1 week 1. Supine-Sit supervision NOT MET 2. Sit-Supine supervision NOT MET 3. Sit-Stand i supervision NOT MET 4. Stand-Sit supervision NOT MET 5. Bed-Chair supervision NOT MET 6. Chair-Bed supervision NOT MET 7. Standby assist gait on level surface with use of least restrictive device for at least 300 feet without report of pain nor dyspnea MET 9. Standby assist with home exercise program MET 10. Good static and dynamic standing balance/tolerance NOT MET DISCHARGE RECOMMENDATIONS: Return to home with / care. Patient will benefit from home health PT services in order to progress mobility level using least restrictive assistive ambulatory device, assess home safety, identify additional equipment needs, and establish a functional maintenance program that will increase ability of patient to remain at home. TREATMENT CODE/TIME: NC. Thank you for the opportunity to participate in the care of this patient. Valeria Reyes PT, DPT, CLT [facility] [place], [place]
== END 2020-06-01 15:49 | disposition home health service (06) | DRG 329 ==
LOC: ER 17:50 → MS 17:53 → ICU 05-17 21:07 → MS 05-27 10:16
PROVIDERS: Internal Medicine; Surgery; Admitting Provider Surgery; Emergency Provider Registered Nurse Emergency; PCP Family Medicine; Visit Provider Surgery
PROC: 0DB80ZZ Excision of Small Intestine, Open Approach (ICD-10-PCS; CPT 49320; principal; 2020-05-18 12:15)
PROC: 0DB80ZZ Excision of Small Intestine, Open Approach (ICD-10-PCS; CPT 49000; 2020-05-18 12:15)
DX: K56.51 Intestinal adhesions [bands], with partial obstruction (principal); Q28.2 Arteriovenous malformation of cerebral vessels; K55.011 Focal (segmental) acute (reversible) ischemia of small intestine; D62 Acute posthemorrhagic anemia; A04.72 Enterocolitis due to Clostridium difficile, not specified as recurrent; E44.1 Mild protein-calorie malnutrition; B37.0 Candidal stomatitis; Z86.73 Personal history of transient ischemic attack (TIA), and cerebral infarction without residual deficits; H81.10 Benign paroxysmal vertigo, unspecified ear; F32.9 Major depressive disorder, single episode, unspecified; I10 Essential (primary) hypertension; E78.5 Hyperlipidemia, unspecified; M54.5 Low back pain; G89.29 Other chronic pain; Z85.21 Personal history of malignant neoplasm of larynx; Z86.711 Personal history of pulmonary embolism; R32 Unspecified urinary incontinence; E55.9 Vitamin D deficiency, unspecified; E87.6 Hypokalemia; J44.9 Chronic obstructive pulmonary disease, unspecified; Z93.1 Gastrostomy status; I65.29 Occlusion and stenosis of unspecified carotid artery; I87.2 Venous insufficiency (chronic) (peripheral); Z79.01 Long term (current) use of anticoagulants; L89.151 Pressure ulcer of sacral region, stage 1; K56.7 Ileus, unspecified; Z93.0 Tracheostomy status; N39.498 Other specified urinary incontinence; I48.91 Unspecified atrial fibrillation; Z66 Do not resuscitate; D63.8 Anemia in other chronic diseases classified elsewhere; R53.81 Other malaise
CPT/HCPCS: 36569; 49320; 44120; 36415; 36430; 36573; 36592; 44140; 71045; 80048; 80053; 83690; 85027; 86850; 86900; 86901; 86920; 87040; 93005; 96361; 96374; 97110; 97162; 97530; 99222; 99231; 99232; 99233; 99253; 99255; 99285; J1650; NC; U0003; 74018; 74250; 81003; 83540; 83550; 83605; 83735; 84100; 84132; 84484; 85014; 85018; 85025; 85379; 86140; 87324; 87798; 88307; 93010; 93970; J0131; J0744; J1200; J1756; J1940; J2405; J2543; J3475; J3480; J3490; J7620; P9016

== ENCOUNTER → 2020-06-07 12:38 | Outpatient (BNVA) | payer OTHER, MEDICAID, SELFPAY | PROVIDERS: PCP Family Medicine; Referring Provider Family Medicine; Visit Provider Surgery | DX: Z48.815 Encounter for surgical aftercare following surgery on the digestive system (principal) ==

== ENCOUNTER 2020-06-21 15:51 | Outpatient (REF) | payer OTHER, MEDICAID, SELFPAY ==
[2020-06-21 16:20] LABS: Bilirubin Negative (Negative); Blood Negative (Negative); Clarity Clear (Clear); Glucose Negative (Negative); Ketones Negative (Negative); Leukocyte Esterase Negative (Negative); Nitrite Negative (Negative); Specific Gravity 1.025 (1.005-1.025); Urobilinogen 0.2 EU/dL (Up TO 0.2)
== END 2020-06-21 16:11 ==
LOC: LBN 15:51
PROVIDERS: PCP Family Medicine; Visit Provider Family Medicine
DX: N39.0 Urinary tract infection, site not specified (principal)
CPT/HCPCS: 81003

== ENCOUNTER 2020-06-23 14:35 | Outpatient (REF) | payer OTHER, MEDICAID, SELFPAY ==
[2020-06-24 16:37] LABS: COVID-19 RT-PCR Result Not Detected ((See Note))
== END 2020-06-23 14:55 ==
LOC: LBN 14:35
PROVIDERS: PCP Family Medicine; Visit Provider Family Medicine
DX: Z11.59 Encounter for screening for other viral diseases (principal)
CPT/HCPCS: U0003

== ENCOUNTER 2020-06-25 12:27 | Outpatient (REF) | payer OTHER, MEDICAID, SELFPAY | END 2020-06-25 12:47 | LOC: LBN 12:27 | PROVIDERS: PCP Family Medicine; Visit Provider Family Medicine | DX: R19.7 Diarrhea, unspecified (principal) | CPT/HCPCS: 87324 ==

== ENCOUNTER 2020-06-25 17:21 | Inpatient (IN) | payer OTHER, MEDICAID, SELFPAY ==
[2020-06-25 17:48] VITALS: BP 145/53; PULSE 95; RESP 18; TEMP 36.6; O2SAT 97
--- NOTE | 2020-06-25 18:00 | DI.RAD_ITS ---
EXAM: XR ABD FLAT UPRIGHT PA CHEST CLINICAL HISTORY: Decreased appetite, diarrhea TECHNIQUE: COMPARISON: CR,XR XR PORTABLE CHEST AP from 05/23/2020 FINDINGS: Five views of the chest and abdomen were obtained. There is a tracheostomy tube in position. Lungs are grossly clear with changes of scarring. No gross pleural effusion on the frontal film. Bowel gas pattern unremarkable. No gross free intraperitoneal air. Gastrostomy tube noted. IMPRESSION: No evidence of acute process.. RADIATION DOSE DELIVERED: Total DLP
[2020-06-25 18:18] LABS: Abs Immature Grans 0.07 10^3/uL (0.0-0.06); HCT 35.1 % (36.0-46.0); MCH 30.1 pg (27.0-33.0); MCHC 31.3 % (32.0-36.0); MCV 95.9 fL (80-95); MPV 9.8 fL (8.0-11.0); Nucleated RBC 0 %; Platelet Count 318 10^3/uL (130-400); RBC 3.66 10^6/uL (3.93-5.22); RDW 14.9 % (11.7-14.6); RDW-SD 52.4 fL; WBC 17.09 10^3/uL (4.4-10.8)
[2020-06-25 18:34] LABS: ALT 18 U/L (14-59); AST 24 U/L (15-37); Albumin 2.8 g/dL (3.4-5.0); Alkaline Phosphatase 89 U/L (46-116); Anion Gap 9.6 mmol/L (3-11); BUN 9 mg/dL (7-18); Bilirubin, Total 0.3 mg/dL (0.2-1.0); CO2 26.4 mmol/L (21.0-32.0); CREATININE 1.04 mg/dL (0.55-1.02); Calcium 8.7 mg/dL (8.5-10.1); Chloride 99 mmol/L (98-107); Estimated GFR 50.73 (mL/min/1.73m2); Glucose 120 mg/dL (74-106); Potassium 3.2 mmol/L (3.5-5.1); Sodium 135 mmol/L (136-145); Total Protein 7.8 g/dL (6.4-8.2)
[2020-06-25] MEDS: Normal Saline 1,000 ML 1000 ML IV (18:37)
[2020-06-25 18:43] LABS: Absolute Lymphocyte Count 0.68 10^3/uL (1.2-3.4); Absolute Neutrophil Count 15.21 10^3/uL (1.2-6.7); Bands % 2; Diff Comment Manual Differential; RBC Morphology Normal
[2020-06-25 19:12] LABS: INR 1.2 (0.9-1.1); PTT Activated 25.2 sec (21.0-31.4); Prothrombin Time 11.9 sec (9.3-11.0)
--- NOTE | 2020-06-25 19:49 | DI.VRAD_ITS ---
PROCEDURE INFORMATION: Exam: XR Complete Acute Abdomen Series Exam date and time: 06/25/2020 7:11 PM Age: 80 years old Clinical indication: Other: Decreased appetite, diarrhea; Additional info: C-dif PT. Done in stretcher. Unable to stand. Very weak. TECHNIQUE: Imaging protocol: XR complete acute abdomen series, including 2 or more views of the abdomen and a single view chest. COMPARISON: CR XR PORTABLE CHEST AP 05/23/2020 9:08 AM FINDINGS: Tubes, catheters and devices: Tracheostomy is in place. Gastrostomy tube is appreciated in the left upper quadrant. Lungs: Mild vascular congestion. Lungs appear grossly clear. Pleural space: Normal. No pneumothorax. Heart/Mediastinum: Mild cardiomegaly suggested. Gastrointestinal tract: Diffusely air filled loops of bowel are seen throughout the abdomen. The bowel gas pattern nevertheless remains nonobstructive. Intraperitoneal space: No abnormal calcifications. Bones/joints: No acute abnormality or aggressive osseous lesion. Soft tissues: Normal. Other findings: No mass effect. IMPRESSION: 1. Mild vascular congestion in the chest without definitive interstitial or airspace disease noted. 2. Question of mild abdominal bloating without definitive bowel obstruction. Dictated and Authenticated by: Ed Vieyra MD. Ordering:TESHA Choi MD
[2020-06-25 19:50] LABS: Bilirubin Negative (Negative); Blood Trace-intact (Negative); Clarity Sl Cloudy (Clear); Glucose Negative (Negative); Ketones Negative (Negative); Leukocyte Esterase Large (Negative); Nitrite Positive (Negative); Specific Gravity 1.015 (1.005-1.025); Urobilinogen 0.2 EU/dL (Up TO 0.2); pH 6.5 (5-8)
[2020-06-25 19:58] VITALS: BP 138/72; PULSE 88; RESP 14; O2SAT 99
[2020-06-25 20:02] LABS: Epithelial Cells Rare HPF (Negative); RBC 0-2 HPF (0-2); WBC >50 HPF (0-5)
[2020-06-25 20:03] LABS: Bacteria Many HPF (Negative); C & S Indicated? Yes; Casts Negative LPF (Negative); Crystals Negative HPF (Negative); Mucus Negative (Negative)
--- NOTE | 2020-06-25 20:15 | ED.GENADUL_ITS ---
Discharge Plan Disposition Patient Disposition: [facility] INPATIENT Discharge Details Chief Complaint: Nausea/Vomit/Diar Clinical Impression: C. difficile diarrhea, Acute UTI Primary Care Provider: Caridad Sánchez ED Provider: Jimbo Lujan Home Meds and New Rx's Prescriptions: No Action metoclopramide HCl [Reglan] 5 mg tablet 5 mg PO BID Qty: 180 RF: 4 ipratropium-albuterol 0.5 mg-3 mg(2.5 mg base)/3 mL solution for nebulization 3 ml IH QID PRN (Reason: wheezing. J44.9) Qty: 180 RF: 8 guaifenesin [Tussin Mucus-Chest Congestion] 100 mg/5 mL liquid 400 mg PO BID Qty: 1000 RF: 0 metoprolol succinate 25 mg tablet extended release 24 hr 12.5 mg PO BID Qty: 90 RF: 4 Eliquis 5 mg tablet 5 mg PO BID Qty: 180 RF: 12 hydrocodone-acetaminophen 5-325 mg tablet 1 tab PO Q6H MDD 4 tabs PRN (Reason: pain) Qty: 10 RF: 0 vancomycin 125 mg capsule 125 mg PO Q6H Qty: 28 RF: 0 furosemide 40 mg tablet 40 mg PO DAILY RF: 0 potassium chloride 40 mEq/15 mL liquid 40 meq PO DAILY Qty: 473 RF: 0 nystatin 100,000 unit/mL Suspension 500,000 units PO TID Qty: 60 RF: 0 ferrous sulfate 325 mg (65 mg iron) Tablet 325 mg PO DAILY Qty: 90 RF: 0 Metamucil Sugar-Free (aspart) 3.4 gram/5.8 gram Powder 3.4 gm PO BID Qty: 283 RF: 0 Bio-K plus 50 billion cell Capsule,Delayed Release(Dr/Ec) 1 cap PO DAILY Qty: 90 RF: 0 Medical Decision Making 80-year-old female with significant past medical history presents with worsening nausea, vomiting, weakness, diarrhea over the past week. Recent hospitalization for sepsis and C. difficile. She has a tracheostomy and a feeding tube. Family reports that the feeding tube causes irritation and the use it very sparingly. They feel as though in her current condition they cannot care for her adequately. She is a DNR-DNI, is willing to be admitted but does not want to be transferred anywhere this evening. She currently appears well, nontoxic, she is afebrile, pulse in the 90s, blood pressure 145/53. No obvious signs of toxicity. Will initiate IV access, laboratory values and abdominal plain film Spoke with patient's daughter Mona twice and Sb once to keep them up to speed as to what their mother's evaluation was showing. White blood cell count of 17.09 hemoglobin 11 hematocrit 35.1. Platelet count 318. Anemia near baseline. INR 1.2 sodium 135 potassium 3.2 creatinine 1.04 GFR estimated 50.73. Urinalysis positive for nitrates, large leuk esterase, greater than 50 white cells. Blood cultures and urine cultures are pending. I have requested that our community marketing coordinator attempt to find the C. difficile results. They could not access these results either. We have contacted the lab for further information. In the meantime will initiate IV Rocephin therapy for the known urinary tract infection. I have placed another order for C. difficile as I do not have any obvious results stating that she is positive today. We will talk with our hospitalist team regarding admission of this 80-year-old female with increasing nausea, vomiting, elevated white count, UTI, possible C. difficile infection. I spoke with Dr. Kidd who was agreeable to admission. I later received a phone fax of a positive C. difficile test today. I contacted Dr. Fan to be sure that he was aware of the findings. He was already isaias re and initiated Flagyl and vancomycin therapy Medical Records Medical records reviewed: Yes I reviewed the patient's medical records. Imaging Data Radiologic Study: Attestation: I personally reviewed and interpreted this imaging study as follows: Imaging: X-Ray Radiologist's impression: Mild vascular congestion in the chest without definitive interstitial or airspace disease. Question of mild abdominal bloating without definitive bowel obstruction HPI General Mode of arrival: ambulatory . Date/Time Provider Initiated Documentation: 06/25/20 17:23 . Limitations to Documentation: other (Tracheotomy) . Information obtained by: patient and family . HPI Narrative: This is an 80-year-old female with significant past medical history that includes adynamic ileus, anemia, A. fib, vertigo, cerebral arteriovenous malformation, CVA, colitis due to C. difficile, depression, dysphasia, hypertension, former smoker, hyperlipidemia, low back pain, primary malignant neoplasm of the larynx, PE, seizures, stenosis of the carotid, venous insufficiency, tracheostomy, feeding tube, taking Eliquis, presents via private vehicle for evaluation. Patient does have a difficult time communicating because of the tracheostomy but is able to communicate writing on a white board, shaking her head, and does try to speak very softly. She was admitted to our facility last month, per her daughter septic and developed C. difficile. She was admitted on the and subsequently discharged on the . She was discharged on oral vancomycin and was doing well up until about a week or so ago. Her last dose of vancomycin was last Sunday. Since that time she has had increased loose stool, generalized weakness, decreased oral intake. Family reports that they feel as though they cannot adequately care for her at home in her current condition. She has a feeding tube but they report that it chronically irritates her when they use it so they only use it very sparingly. Of note her surgical team at [facility], was actually going to remove her current feeding tube today and change it out to something that may be less irritating. Given her deterioration over the last week they did not opt to do surgery today. She actually had a negative COVID test on Sunday. She was seen as an outpatient yesterday at home by Dr. Sánchez who initiated oral vancomycin once again and ordered a C. difficile test. Family reports that she was not really able to hold down any of that vancomycin. They received a call around 3 PM stating that the C. difficile test was positive however I cannot see this in my computer is done at this time. Patient denies any pain currently whatsoever. Denies headache, chest pain, shortness of breath, abdominal pain, dysuria, black tarry stools or bright red blood in her stool. Does report nausea, vomiting, diarrhea. Related Data Home Medications Medication Instructions Recorded Confirmed ipratropium 0.5 mg-albuterol 3 mg 3 ml IH QID PRN #180 ml 11/28/19 06/07/20 (2.5 mg base)/3 mL nebulization soln guaifenesin 100 mg/5 mL oral liquid 400 mg PO BID #1000 ml 11/29/19 06/07/20 metoprolol succinate 25 mg 12.5 mg PO BID #90 tab 12/17/19 06/07/20 tablet,extended release 24 hr apixaban 5 mg tablet 5 mg PO BID #180 tab 12/24/19 06/07/20 metoclopramide HCl 5 mg tablet 5 mg PO BID #180 tab 02/19/20 06/07/20 furosemide 40 mg PO DAILY 05/13/20 06/07/20 potassium chloride 40 meq PO DAILY #473 ml 05/13/20 06/07/20 L. acidophilus,casei,rhamnosus 1 cap PO DAILY #90 cap 06/01/20 06/07/20 [Bio-K plus] ferrous sulfate 325 mg PO DAILY #90 tab 06/01/20 06/07/20 hydrocodone 5 mg-acetaminophen 325 1 tab PO Q6H PRN #10 tab MDD 4 tabs 06/01/20 06/07/20 mg tablet nystatin 500,000 units PO TID #60 ml 06/01/20 06/07/20 psyllium husk (aspartame) 3.4 gm PO BID #283 gm 06/01/20 06/07/20 [Metamucil Sugar-Free (aspart)] vancomycin 125 mg capsule 125 mg PO Q6H #28 cap 06/24/20 Previous Rx's Medication Instructions Recorded ipratropium 0.5 mg-albuterol 3 mg 3 ml IH QID PRN #180 ml 11/28/19 (2.5 mg base)/3 mL nebulization soln guaifenesin 100 mg/5 mL oral liquid 400 mg PO BID #1000 ml 11/29/19 metoprolol succinate 25 mg 12.5 mg PO BID #90 tab 12/17/19 tablet,extended release 24 hr apixaban 5 mg tablet 5 mg PO BID #180 tab 12/24/19 metoclopramide HCl 5 mg tablet 5 mg PO BID #180 tab 02/19/20 potassium chloride 40 meq PO DAILY #473 ml 05/13/20 L. acidophilus,casei,rhamnosus 1 cap PO DAILY #90 cap 06/01/20 [Bio-K plus] ferrous sulfate 325 mg PO DAILY #90 tab 06/01/20 hydrocodone 5 mg-acetaminophen 325 1 tab PO Q6H PRN #10 tab MDD 4 tabs 06/01/20 mg tablet nystatin 500,000 units PO TID #60 ml 06/01/20 psyllium husk (aspartame) 3.4 gm PO BID #283 gm 06/01/20 [Metamucil Sugar-Free (aspart)] vancomycin 125 mg capsule 125 mg PO Q6H #28 cap 06/24/20 Allergies Allergy/AdvReac Type Severity Reaction Status Date / Time atorvastatin AdvReac Intermediate pt does Unverified 06/07/20 12:41 not think she has an allergy to this med General Stated Complaint: Nausea/Vomit/Diar SUHA: 3 Review of Systems Constitutional Constitutional: Denies fever(s) and Denies headache(s) ENT Ears, Nose, Mouth, and Throat: Denies headache(s), Denies neck pain and Denies sore throat Cardiovascular Cardiovascular: Denies chest pain and Denies dyspnea Respiratory Respiratory: Denies cough and Denies dyspnea Gastrointestinal Gastrointestinal: Denies abdominal pain, Denies melena, Denies hematochezia, Reports diarrhea, Reports nausea and Reports vomiting Genitourinary Genitourinary: Denies dysuria Musculoskeletal Musculoskeletal: Reports back pain (Chronic) and Denies neck pain Integumentary/Breasts Skin/Breast: Denies rash Neurologic Neurologic: Denies headache(s) Hematologic/Lymphatic Hematologic/Lymphatic: Reports easy bleeding and Reports easy bruising [facility] Medical History Adynamic ileus (Resolved) Anemia due to blood loss, acute (Acute) Atrial fibrillation with controlled ventricular rate (Acute) Benign paroxysmal vertigo Benign paroxysmal vertigo, unspecified ear (Resolved) Cataract (Resolved) O.U 02/24/14; Dr. Martin left extraction 03/10/14; Dr. 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 L hip-mild acetabular spurring 2014 - severe arthritis at facet joints Lumbago Nausea and vomiting (Inactive) Neutrophilic leukocytosis (Acute) Oral thrush (Acute) Oral ulcer (Resolved) 12/07/16 Peripheral edema (Chronic 07/31/16) Peripheral venous insufficiency (Chronic 12/03/08) edema Physical deconditioning (Acute) Pneumonia of right lower lobe due to infectious organism (Resolved) Polyp of colon (Resolved) colonoscopy of 01/09/11-multiple polyps at multiple locations. 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 Very hard to regulate and cannot afford alternatives. Understands the risks. Repeat again - PE. back on anticoagualtion Seizure (Resolved) ? 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 NEG ECHO 2000 Urinary incontinence (Chronic 11/10/14) Vaginal lesion (Resolved) 03/22/16 Venous insufficiency Visual disturbance (Resolved) etiology unclear per -exam of 03/14/11 Vitamin D deficiency Vitamin D deficiency (Chronic 03/11/09) Vulvovaginitis (Resolved) Surgical History Extraction of cataract 02/24/14; LEFT EYE 03/10/14; RIGHT EYE History of bilateral tubal ligation (Resolved) History of laryngectomy (Acute) Ligation of fallopian tube Status post gastrostomy (Acute) Status post tracheostomy (Acute) Family History Mother , 85 Vaginal cancer Father , 74 Heart disease COPD (chronic obstructive pulmonary disease) Sister , 63 Heart disease ASHD/CHF Lung cancer Maternal Grandmother Heart disease Paternal Grandmother Diabetes Son , 40 Substance abuse Heart disease Sister No problems noted. Sister No problems noted. Son RA (rheumatoid arthritis) Daughter No problems noted. Daughter No problems noted. Paternal Grandfather , 80 No problems noted. Social History Smoking/Tobacco Use Status: Former Tobacco Use Quit Date: 06/05/01 Second Hand Exposure: Yes Alcohol Intake: former Drug use: Never Substance use type: does not use Caregiver/Support person: No Household members: none Housing: house Do you need help understanding health information?: Rarely Pets and animals: No Sexually active: No Current gender identity: female What is your relationship status?: How often do you talk on the phone with friends or family?: decline to answer How often do you get together with friends or relatives?: once per week How often do you attend temple or orthodoxy services?: decline to answer Do you belong to any clubs or organized social groups?: no Panel score (0-1 are the most socially isolated patients): 0 What type of physical activity do you participate in: decline to answer Duration: decline to answer Frequency: decline to answer Bethany/Zoroastrian: Uatsdin Special bethany needs: No Seatbelt use: always Helmet use: No Drive intox or ride w/intox tour bus driver/guide: No Do you feel safe at home: Yes Do you feel safe in your relationship?: Yes Exam Const General: cooperative, comfortable and no acute distress Orientation: alert and awake [facility] Head: normal to inspection, normocephalic and atraumatic Mouth: moist mucous membranes Eyes Conjunctivae: conjunctivae normal Sclera: sclerae normal Neck Neck: normal visual inspection, supple, nontender and tracheostomy present Resp Effort & Inspection: normal respiratory effort and able to speak in complete sentences Auscultation: clear to auscultation bilaterally Cardio Rate: regular rate Rhythm: regular rhythm GI Inspection: other (Feeding tube left upper quadrant present) Palpation: soft, not firm, no guarding, no masses, not rigid and nontender Auscultation: normal bowel sounds Back/Spine/Pelvis Back: no CVA tenderness Skin General skin exam: no rashes or lesions noted Neuro General: patient alert, patient awake, moves all extremities and no focal motor deficits Sensory Exam: no sensory deficits noted Extrem General: normal to inspection and capillary refill normal Psych Appearance: grossly normal Mental Status: mental status grossly normal Course Vital Signs Vital signs: Vital Signs Temperature 36.6 C 06/25/20 17:48 Pulse 95 H 06/25/20 17:48 Respiratory Rate 18 06/25/20 17:48 Blood Pressure 145/53 H 06/25/20 17:48 Pulse Oximetry 97 06/25/20 17:48 Temperature 36.6 C 06/25/20 17:48 Temperature Source Skin 06/25/20 17:48 Pulse 88 06/25/20 19:58 Respiratory Rate 14 06/25/20 19:58 Respiratory Effort 06/25/20 17:53 Blood Pressure 138/72 06/25/20 19:58 Blood Pressure Position Supine 06/25/20 17:48 Pulse Oximetry 99 06/25/20 19:58 Oxygen Delivery Method Room Air 06/25/20 19:58 Oxygen Flow Rate 0 06/25/20 19:58 Pain Level 0 06/25/20 19:58 Lab/Test Results Lab/Test Results: 06/25/20 19:44 Urine - Reflex from Ua Urine Culture - Pending 06/25/20 19:23 Blood Blood Culture - Pending 06/25/20 19:23 Blood Blood Culture - Pending Laboratory Tests Range/Units 06/25/20 06/25/20 06/25/20 18:00 18:00 18:55 WBC (4.4-10.8) 10^3/uL 17.09 H RBC (3.93-5.22) 10^6/uL 3.66 L Hgb (11.2-15.7) g/dL 11.0 L Hct (36.0-46.0) % 35.1 L MCV (80-95) fL 95.9 H MCH (27.0-33.0) pg 30.1 MCHC (32.0-36.0) % 31.3 L RDW (11.7-14.6) % 14.9 H Plt Count (130-400) 10^3/uL 318 MPV (8.0-11.0) fL 9.8 Immature Gran % 0.0 Neutrophils % 87.0 Band Neutrophils % 2 Lymphocytes % 4.0 Monocytes % 7.0 Eosinophils % 0.0 Basophils % 0.0 Nucleated RBC % % 0 Absolute Neutrophils (1.2-6.7) 10^3/uL 15.21 H Absolute Lymphocytes (1.2-3.4) 10^3/uL 0.68 L Absolute Monocytes (0.1-0.8) 10^3/uL 1.20 H Absolute Eosinophils (0.0-0.7) 10^3/uL 0.00 Absolute Basophils (0.0-0.2) 10^3/uL 0.00 RBC Morphology Normal PT (9.3-11.0) sec 11.9 H INR (0.9-1.1) 1.2 H APTT (21.0-31.4) sec 25.2 Sodium (136-145) mmol/L 135 L Potassium (3.5-5.1) mmol/L 3.2 L Chloride (98-107) mmol/L 99 Carbon Dioxide (21.0-32.0) mmol/L 26.4 Anion Gap (3-11) mmol/L 9.6 BUN (7-18) mg/dL 9 Creatinine (0.55-1.02) mg/dL 1.04 H Estimated GFR/1.73 m2 (mL/min/1.73m2) 50.73 Glucose (74-106) mg/dL 120 H Calcium (8.5-10.1) mg/dL 8.7 Total Bilirubin (0.2-1.0) mg/dL 0.3 AST (15-37) U/L 24 ALT (14-59) U/L 18 Alkaline Phosphatase (46-116) U/L 89 Total Protein (6.4-8.2) g/dL 7.8 Albumin (3.4-5.0) g/dL 2.8 L Urine Color (Yellow) Urine Clarity (Clear) Urine pH (5-8) Ur Specific [place] (1.005-1.025) Urine Protein (Negative) mg/dL Urine Ketones (Negative) mg/dL Urine Blood (Negative) Urine Nitrite (Negative) Urine Bilirubin (Negative) Urine Urobilinogen (Up TO 0.2) EU/dL Ur Leukocyte Esterase (Negative) Urine RBC (0-2) HPF Urine WBC (0-5) HPF Ur Epithelial Cells (Negative) HPF Urine Crystals (Negative) HPF Urine Bacteria (Negative) HPF Urine Casts (Negative) LPF Urine Mucus (Negative) Ur Culture Indicated? Urine Glucose (Negative) mg/dL Range/Units 06/25/20 19:44 WBC (4.4-10.8) 10^3/uL RBC (3.93-5.22) 10^6/uL Hgb (11.2-15.7) g/dL Hct (36.0-46.0) % MCV (80-95) fL MCH (27.0-33.0) pg MCHC (32.0-36.0) % RDW (11.7-14.6) % Plt Count (130-400) 10^3/uL MPV (8.0-11.0) fL Immature Gran % Neutrophils % Band Neutrophils % Lymphocytes % Monocytes % Eosinophils % Basophils % Nucleated RBC % % Absolute Neutrophils (1.2-6.7) 10^3/uL Absolute Lymphocytes (1.2-3.4) 10^3/uL Absolute Monocytes (0.1-0.8) 10^3/uL Absolute Eosinophils (0.0-0.7) 10^3/uL Absolute Basophils (0.0-0.2) 10^3/uL RBC Morphology PT (9.3-11.0) sec INR (0.9-1.1) APTT (21.0-31.4) sec Sodium (136-145) mmol/L Potassium (3.5-5.1) mmol/L Chloride (98-107) mmol/L Carbon Dioxide (21.0-32.0) mmol/L Anion Gap (3-11) mmol/L BUN (7-18) mg/dL Creatinine (0.55-1.02) mg/dL Estimated GFR/1.73 m2 (mL/min/1.73m2) Glucose (74-106) mg/dL Calcium (8.5-10.1) mg/dL Total Bilirubin (0.2-1.0) mg/dL AST (15-37) U/L ALT (14-59) U/L Alkaline Phosphatase (46-116) U/L Total Protein (6.4-8.2) g/dL Albumin (3.4-5.0) g/dL Urine Color (Yellow) Yellow Urine Clarity (Clear) Sl cloudy Urine pH (5-8) 6.5 Ur Specific [place] (1.005-1.025) 1.015 Urine Protein (Negative) mg/dL Negative Urine Ketones (Negative) mg/dL Negative Urine Blood (Negative) Trace-intact H Urine Nitrite (Negative) Positive H Urine Bilirubin (Negative) Negative Urine Urobilinogen (Up TO 0.2) EU/dL 0.2 Ur Leukocyte Esterase (Negative) Large H Urine RBC (0-2) HPF 0-2 Urine WBC (0-5) HPF >50 H Ur Epithelial Cells (Negative) HPF Rare Urine Crystals (Negative) HPF Negative Urine Bacteria (Negative) HPF Many Urine Casts (Negative) LPF Negative Urine Mucus (Negative) Negative Ur Culture Indicated? Yes Urine Glucose (Negative) mg/dL Negative
[2020-06-25] MEDS: cefTRIAXone 1 GM/50 ML BAG IVPB (21:12)
[2020-06-25 22:20] VITALS: TEMP 34
--- NOTE | 2020-06-25 22:22 | RESPIRATORY ---
Pt arrived in ED for Diarrhea and vomiting . Pt has a well established l[place] that [place] over [place] and a half ago [place] [facility] [place] Pt has an 8.[address] trach in place with inner cannula. Pt's room is set up with Laryngectomy customer consulting manager at head of bed, Airvo 34 C, 30 LPM ,21%, Suction with both yankeur and 14 peruvian cath, sterile h20 with trach clean kit tray, 6.5 shiley uncuffed trach, BVM with filter and pediatric mask, 6 inner cannulas,and a Trach tie.
[2020-06-25 22:41] VITALS: BP 141/82; PULSE 84; RESP 14; TEMP 36.4; O2SAT 95
[2020-06-25 23:03] VITALS: BP 139/78; PULSE 89; RESP 18; TEMP 37.1; O2SAT 98
--- NOTE | 2020-06-25 23:32 | W.PM.HP.N ---
Date of service: 06/25/20 Time of Service: 23:32 Assessment and Plan Assessment and plan (1) C. difficile diarrhea: Status: Acute Assessment and plan: recurrent C. difficile colitis. I suspect that this is the cause of her acute nausea and vomiting and intolerance to her feedings via her feeding tube. Abdomimal xray demonstrated scattered small bowel gas but no definitive obstruction. She will receive iv flagyl and oral vancomycin and if she fails this then add fidaxomicin or consider for fecal transplant. (2) Acute UTI: Status: Acute Assessment and plan: awaiting blood and urine culture results obtained in the ER. cont. Rocephin 1 gm iv daily. (3) Hypokalemia: Status: Acute Assessment and plan: treat w/ iv potassium via her iv fluids. recheck labs in the a.m. (4) Protein-calorie malnutrition, mild: Status: Chronic Assessment and plan: If patient is intolerant of G-tube feedings or oral feedings patient may require resumption of TPN. Will consult with surgery to follow along and provide TPN services if needed. History of Present Illness History of Present Illness Chief Complaint: nausea, vomiting, diarrhea, C. 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 05/14-06/01/[address] Haydee Morrow d/t partial SBO which did not improve w/ conservative treatment and underwent laparotomy and partial small bowel resection of small portion of small bowel d/t ischemic bowel and lysis of adhesions. She developed C. difficile diarrhea during her admission and required TPN and iv Flagyl and enteral Vancomycin. Eventually her lela function improved and she was put on enteral feedings and Metamucil was given to help with the diarrhea. Patient had a follow up stool test for C. difficile on 06/01 d/t continued diarrhea and this came back negative. She was felt ready for discharge and was released on 06/01/2020. Her hospitalization was complicated by C. difficile diarrhea, anemia of chronic disease, oral thrush and a stage I decubitus ulcer and physical deconditioning. She was discharged home on another week of oral vancomycin along w/ metamucil and probiotics. The patient was brought to the ER by her family d/t concerns of recurrent nausea and vomiting and diarrhea and poor oral intake and an intolerance to tube feedings. A stool study earlier in the day was ordered by her physician, Dr. Sánchez for C. difficile and has come back positive for C. difficile toxin and antigen. Patient's workup in the ER included CBC (elevated WBC 17,000 with stable anemia, Hb 11 GM), potassium 3.2, normal BUN 9, creatinine 1.0, low albumin 2.8. UA with nitrities, large leukocyte esterace, >50 WBC/HPF, many bacteria w/ rare epithelial cells. Patient is being admitted for dehydration, hypokalemia, recurrent/ongoing C. difficile colitis, and malnutrition and failure to thrive. Review of Systems All systems reviewed & are unremarkable except as noted in HPI and below [facility] Medical History (Updated 06/26/20 @ 08:45 by Jimbo Kidd) Adynamic ileus (Resolved) Anemia due to blood loss, acute (Acute) Anxiety (Chronic) Atrial fibrillation with controlled ventricular rate (Acute) Benign paroxysmal vertigo Benign paroxysmal vertigo, unspecified ear (Resolved) Cataract (Resolved) O.U 02/24/14; Dr. Martin left extraction 03/10/14; Dr. 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 L hip-mild acetabular spurring 2015 - severe arthritis at facet joints Lumbago Nausea and vomiting (Inactive) Neutrophilic leukocytosis (Resolved) Oral thrush (Resolved) Oral ulcer (Resolved) 12/07/16 Peripheral edema (Chronic 07/31/16) Peripheral venous insufficiency (Chronic 12/03/08) edema Pharyngoesophageal dysphagia (Inactive) Physical deconditioning (Acute) Pneumonia of right lower lobe due to infectious organism (Resolved) Polyp of colon (Resolved) colonoscopy of 01/09/11-multiple polyps at multiple locations. 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 Very hard to regulate and cannot afford alternatives. Understands the risks. Repeat again - PE. back on anticoagualtion Right vocal cord cancer (Inactive) Seizure (Resolved) ? 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 NEG ECHO 2000 Urinary incontinence (Chronic 11/10/14) Vaginal lesion (Resolved) 03/22/16 Venous insufficiency Visual disturbance (Resolved) etiology unclear per -exam of 03/14/11 Vitamin D deficiency Vitamin D deficiency (Chronic 03/11/09) Vulvovaginitis (Resolved) Surgical History Extraction of cataract 02/24/14; LEFT EYE 03/10/14; RIGHT EYE History of bilateral tubal ligation (Resolved) History of laryngectomy (Acute) Ligation of fallopian tube Status post gastrostomy (Acute) Status post tracheostomy (Acute) Family History Mother , 85 Vaginal cancer Father , 74 Heart disease COPD (chronic obstructive pulmonary disease) Sister , 63 Heart disease ASHD/CHF Lung cancer Maternal Grandmother Heart disease Paternal Grandmother Diabetes Son , 40 Substance abuse Heart disease Sister No problems noted. Sister No problems noted. Son RA (rheumatoid arthritis) Daughter No problems noted. Daughter No problems noted. Paternal Grandfather , 80 No problems noted. Social History Smoking/Tobacco Use Status: Former Tobacco Use Quit Date: 06/05/01 Second Hand Exposure: Yes Alcohol Intake: former Drug use: Never Substance use type: does not use Caregiver/Support person: No Household members: none Housing: house Do you need help understanding health information?: Rarely Pets and animals: No Sexually active: No Current gender identity: female What is your relationship status?: How often do you talk on the phone with friends or family?: decline to answer How often do you get together with friends or relatives?: once per week How often do you attend baptism or rastafari services?: decline to answer Do you belong to any clubs or organized social groups?: no Panel score (0-1 are the most socially isolated patients): 0 What type of physical activity do you participate in: decline to answer Duration: decline to answer Frequency: decline to answer Bethany/Samaritan: Nondenominational Special bethany needs: No Seatbelt use: always Helmet use: No Drive intox or ride w/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: No Do you feel safe at home: Yes Do you feel safe in your relationship?: Yes Meds Home Medications and Allergies Home Medications Medication Instructions Recorded Confirmed Type ipratropium 0.5 mg-albuterol 3 mg 3 ml IH QID PRN #180 ml 11/28/19 06/07/20 Rx (2.5 mg base)/3 mL nebulization soln guaifenesin 100 mg/5 mL oral liquid 400 mg PO BID #1000 ml 11/29/19 06/07/20 Rx metoprolol succinate 25 mg 12.5 mg PO BID #90 tab 12/17/19 06/07/20 Rx tablet,extended release 24 hr apixaban 5 mg tablet 5 mg PO BID #180 tab 12/24/19 06/07/20 Rx metoclopramide HCl 5 mg tablet 5 mg PO BID #180 tab 02/19/20 06/07/20 Rx furosemide 40 mg PO DAILY 05/13/20 06/07/20 History potassium chloride 40 meq PO DAILY #473 ml 05/13/20 06/07/20 Rx L. acidophilus,casei,rhamnosus 1 cap PO DAILY #90 cap 06/01/20 06/07/20 Rx [Bio-K plus] ferrous sulfate 325 mg PO DAILY #90 tab 06/01/20 06/07/20 Rx hydrocodone 5 mg-acetaminophen 325 1 tab PO Q6H PRN #10 tab MDD 4 tabs 06/01/20 06/07/20 Rx mg tablet nystatin 500,000 units PO TID #60 ml 06/01/20 06/07/20 Rx psyllium husk (aspartame) 3.4 gm PO BID #283 gm 06/01/20 06/07/20 Rx [Metamucil Sugar-Free (aspart)] vancomycin 125 mg capsule 125 mg PO Q6H #28 cap 06/24/20 Rx Allergies Allergy/AdvReac Type Severity Reaction Status Date / Time atorvastatin AdvReac Intermediate pt does Unverified 06/07/20 12:41 not think she has an allergy to this med Exam Narrative Exam Narrative: Elderly ill-appearing female who is alert nonverbal due to her tracheostomy but able to nod yes and no point to things in response to questions. HEENT is remarkable for tracheostomy which appears to be intact no edema no drainage from the tracheostomy trach is midline no cervical JVD normal carotid pulses Lungs are clear to auscultation anteriorly Heart is regular without appreciable murmur rub Abdomen is slightly distended with active bowel sounds gastrostomy tube is in place in the left upper quadrant with no drainage no induration patient has mild diffuse tenderness without rebound or guarding Lower extremities with chronic venous stasis skin discoloration the bronze discoloration. No visible open sores. Normal pedal pulses Neurologic exam she is alert responds appropriately able to move all 4 extremities no appreciable motor deficits. Results Imaging Chest x-ray: report reviewed Abdominal x-ray: report reviewed Labs Result diagrams: 06/26/20 07:53 06/26/20 07:53 Labs: Laboratory Results - last 24 hr 06/25/20 06/25/20 06/25/20 18:00 18:00 18:55 WBC 17.09 H RBC 3.66 L Hgb 11.0 L Hct 35.1 L MCV 95.9 H MCH 30.1 MCHC 31.3 L RDW 14.9 H Plt Count 318 MPV 9.8 Immature Gran % 0.0 Neutrophils % 87.0 Band Neutrophils % 2 Lymphocytes % 4.0 Monocytes % 7.0 Eosinophils % 0.0 Basophils % 0.0 Nucleated RBC % 0 Absolute Neutrophils 15.21 H Absolute Lymphocytes 0.68 L Absolute Monocytes 1.20 H Absolute Eosinophils 0.00 Absolute Basophils 0.00 RBC Morphology Normal PT 11.9 H INR 1.2 H APTT 25.2 Sodium 135 L Potassium 3.2 L Chloride 99 Carbon Dioxide 26.4 Anion Gap 9.6 BUN 9 Creatinine 1.04 H Estimated GFR/1.73 m2 50.73 Glucose 120 H Calcium 8.7 Total Bilirubin 0.3 AST 24 ALT 18 Alkaline Phosphatase 89 Total Protein 7.8 Albumin 2.8 L Urine Color Urine Clarity Urine pH Ur Specific [place] Urine Protein Urine Ketones Urine Blood Urine Nitrite Urine Bilirubin Urine Urobilinogen Ur Leukocyte Esterase Urine RBC Urine WBC Ur Epithelial Cells Urine Crystals Urine Bacteria Urine Casts Urine Mucus Ur Culture Indicated? Urine Glucose 06/25/20 19:44 WBC RBC Hgb Hct MCV MCH MCHC RDW Plt Count MPV Immature Gran % Neutrophils % Band Neutrophils % Lymphocytes % Monocytes % Eosinophils % Basophils % Nucleated RBC % Absolute Neutrophils Absolute Lymphocytes Absolute Monocytes Absolute Eosinophils Absolute Basophils RBC Morphology PT INR APTT Sodium Potassium Chloride Carbon Dioxide Anion Gap BUN Creatinine Estimated GFR/1.73 m2 Glucose Calcium Total Bilirubin AST ALT Alkaline Phosphatase Total Protein Albumin Urine Color Yellow Urine Clarity Sl cloudy Urine pH 6.5 Ur Specific [place] 1.015 Urine Protein Negative Urine Ketones Negative Urine Blood Trace-intact H Urine Nitrite Positive H Urine Bilirubin Negative Urine Urobilinogen 0.2 Ur Leukocyte Esterase Large H Urine RBC 0-2 Urine WBC >50 H Ur Epithelial Cells Rare Urine Crystals Negative Urine Bacteria Many Urine Casts Negative Urine Mucus Negative Ur Culture Indicated? Yes Urine Glucose Negative Last Vital Signs Temp 37.1 C 06/25/20 23:03 Pulse 89 06/25/20 23:03 Resp 18 06/25/20 23:03 BP 139/78 06/25/20 23:03 Pulse Ox 98 06/25/20 23:03 COVID-19 Screening Have you,or household,traveled outside [place] in last 14 days?: No Had IN PERSON contact w/suspected or confirmed C-19 person: No
[2020-06-26] MEDS: POTASSIUM CHLORIDE/0.9% NACL 1,000 ML 85 MEQ IV ×2 (00:07→12:11)
[2020-06-26] MEDS: Normal Saline Flush 10 ML SYR IVP ×2 (00:11→12:07)
[2020-06-26] MEDS: metroNIDAZOLE 500 MG/100 ML BAG 100 MG IVPB ×5 (00:11→22:00)
[2020-06-26 03:58] VITALS: BP 116/69; PULSE 83; RESP 18; TEMP 36.4; O2SAT 94
[2020-06-26 08:08] LABS: Abs Immature Grans 0.03 10^3/uL (0.0-0.06); Absolute Basophil Count 0.03 10^3/uL (0.0-0.2); Absolute Eosinophil Count 0.04 10^3/uL (0.0-0.7); Absolute Lymphocyte Count 1.23 10^3/uL (1.2-3.4); Absolute Monocyte Count 0.98 10^3/uL (0.1-0.8); Basophils % 0.3; Eosinophils % 0.4; HCT 30.8 % (36.0-46.0); HGB 9.7 g/dL (11.2-15.7); Immature Grans % 0.3; MCH 29.8 pg (27.0-33.0); MCHC 31.5 % (32.0-36.0); MCV 94.8 fL (80-95); MPV 9.7 fL (8.0-11.0); Monocytes % 10.4; Neutrophils % 75.6; Nucleated RBC 0 %; Platelet Count 243 10^3/uL (130-400); RBC 3.25 10^6/uL (3.93-5.22); RDW 14.8 % (11.7-14.6); RDW-SD 52.2 fL; WBC 9.43 10^3/uL (4.4-10.8)
[2020-06-26 08:22] LABS: Absolute Neutrophil Count 7.13 10^3/uL (1.2-6.7)
[2020-06-26 08:24] LABS: ALT 12 U/L (14-59); AST 15 U/L (15-37); Alkaline Phosphatase 67 U/L (46-116); Anion Gap 9.6 mmol/L (3-11); BUN 7 mg/dL (7-18); Bilirubin, Total 0.3 mg/dL (0.2-1.0); CO2 25.4 mmol/L (21.0-32.0); CREATININE 0.78 mg/dL (0.55-1.02); Calcium 7.7 mg/dL (8.5-10.1); Chloride 105 mmol/L (98-107); Glucose 104 mg/dL (74-106); Magnesium 1.6 mg/dL (1.8-2.4); Sodium 140 mmol/L (136-145); Total Protein 5.9 g/dL (6.4-8.2)
[2020-06-26 08:33] LABS: Potassium 2.7 mmol/L (3.5-5.1)
[2020-06-26 09:45] VITALS: TEMP 34
[2020-06-26] MEDS: MAGNESIUM SULFATE 4 GM/100 ML BAG IVPB (10:10)
--- NOTE | 2020-06-26 12:20 | PGE_ITS ---
Date of Service Date of service: 06/26/20 Time of Service: 12:20 Assessment and Plan Assessment and plan (1) C. difficile diarrhea: Status: Acute Assessment and plan: recurrent C. difficile colitis. I suspect that this is the cause of her acute nausea and vomiting and intolerance to her feedings via her feeding tube. Abdomimal xray demonstrated scattered small bowel gas but no definitive obstruction. She will receive iv flagyl and oral vancomycin and if she fails this then add fidaxomicin or consider for fecal transplant. (2) Acute UTI: Status: Acute Assessment and plan: awaiting blood and urine culture results obtained in the ER. cont. Rocephin 1 gm iv daily. (3) Hypokalemia: Status: Acute Assessment and plan: treat w/ iv potassium via her iv fluids. recheck labs in the a.m. (4) Hypomagnesemia: Status: Acute Assessment and plan: We will give enteral as well as parenteral replacement and recheck her labs in the morning (5) Protein-calorie malnutrition, mild: Status: Chronic Assessment and plan: We will give her a trial of advancement of her diet to soft dysphasia foods. If she tolerates this then we will decrease her G-tube feedings. If she is intolerant of the enteral feedings then she will need to receive TPN (6) Anemia of chronic disease: Status: Chronic Assessment and plan: Hemoglobin dropped overnight from 11 g to 9.7 g however I think her initial hemoglobin 11 g was falsely elevated due to dehydration. It appears that her baseline hemoglobin is generally around 9-10 g. Check stool for occult blood as well as check iron levels and reticulocyte count. (7) Atrial fibrillation with controlled ventricular rate: Status: Acute Assessment and plan: Patient with a history of paroxysmal atrial fibrillation but her rhythm seems to be regular at present time. Only on telemetry monitoring and no EKG was taken on admission. We will resume her apixaban as well as her metoprolol. (8) DVT prophylaxis: Status: Acute Assessment and plan: Resume apixaban for her PAF. Subjective Subjective Interval history since last seen: No nausea but still some residual abdominal discomfort. Patient states she is hungry and would like something more than clear liquids. Patient remains on Flagyl and vancomycin for C. difficile colitis as well as Rocephin for UTI. She remains afebrile and her leukocytosis has resolved overnight. We will continue with IV fluid hydration and correction of her electrolyte abnormalities including her hypokalemia and hypomagnesemia. We will advance her diet as tolerated. Exam Narrative Exam Narrative: Alert and seems to be oriented. In no acute distress. She is able to Deedee Caty by writing on her white board. Lungs are clear to auscultation Heart is regular rate and rhythm Abdomen is soft nondistended with normal active bowel sounds and mild epigastric tenderness without rebound or guarding. Objective Objective Clinical Data: Abnormal lab results 06/25/20 06/25/20 06/25/20 Range/Units 18:00 18:00 18:55 WBC 17.09 H (4.4-10.8) 10^3/uL RBC 3.66 L (3.93-5.22) 10^6/uL Hgb 11.0 L (11.2-15.7) g/dL Hct 35.1 L (36.0-46.0) % MCV 95.9 H (80-95) fL MCHC 31.3 L (32.0-36.0) % RDW 14.9 H (11.7-14.6) % Absolute Neutrophils 15.21 H (1.2-6.7) 10^3/uL Absolute Lymphocytes 0.68 L (1.2-3.4) 10^3/uL Absolute Monocytes 1.20 H (0.1-0.8) 10^3/uL PT 11.9 H (9.3-11.0) sec INR 1.2 H (0.9-1.1) Sodium 135 L (136-145) mmol/L Potassium 3.2 L (3.5-5.1) mmol/L Creatinine 1.04 H (0.55-1.02) mg/dL Glucose 120 H (74-106) mg/dL Calcium (8.5-10.1) mg/dL Magnesium (1.8-2.4) mg/dL ALT (14-59) U/L Total Protein (6.4-8.2) g/dL Albumin 2.8 L (3.4-5.0) g/dL Urine Blood (Negative) Urine Nitrite (Negative) Ur Leukocyte Esterase (Negative) Urine WBC (0-5) HPF 06/25/20 06/26/20 06/26/20 Range/Units 19:44 07:53 07:53 WBC (4.4-10.8) 10^3/uL RBC 3.25 L (3.93-5.22) 10^6/uL Hgb 9.7 L (11.2-15.7) g/dL Hct 30.8 L (36.0-46.0) % MCV (80-95) fL MCHC 31.5 L (32.0-36.0) % RDW 14.8 H (11.7-14.6) % Absolute Neutrophils 7.13 H (1.2-6.7) 10^3/uL Absolute Lymphocytes (1.2-3.4) 10^3/uL Absolute Monocytes 0.98 H (0.1-0.8) 10^3/uL PT (9.3-11.0) sec INR (0.9-1.1) Sodium (136-145) mmol/L Potassium 2.7 L* (3.5-5.1) mmol/L Creatinine (0.55-1.02) mg/dL Glucose (74-106) mg/dL Calcium 7.7 L (8.5-10.1) mg/dL Magnesium 1.6 L (1.8-2.4) mg/dL ALT 12 L (14-59) U/L Total Protein 5.9 L (6.4-8.2) g/dL Albumin 2.0 L (3.4-5.0) g/dL Urine Blood Trace-intact H (Negative) Urine Nitrite Positive H (Negative) Ur Leukocyte Esterase Large H (Negative) Urine WBC >50 H (0-5) HPF Vital Signs Temperature 36.4 C L 06/26/20 03:58 Temperature Source Temporal Artery Scan 06/26/20 03:58 Pulse 83 06/26/20 03:58 Pulse Rhythm Regular 06/25/20 23:03 Respiratory Rate 18 06/26/20 03:58 Respiratory Effort Non-Labored 06/25/20 23:03 Respiratory Depth Normal 06/25/20 23:03 Respiratory Pattern Normal 06/25/20 23:03 Blood Pressure 116/69 06/26/20 03:58 Blood Pressure Position Supine 06/25/20 17:48 Pulse Oximetry 94 L 06/26/20 03:58 Oxygen Delivery Method Trach Collar 06/26/20 03:58 Oxygen Flow Rate 30 06/26/20 09:45 Fraction of Inspired Oxygen (FIO2) 21 06/26/20 09:45 Pain Level 0 06/26/20 03:58 Intake & Output 06/25/20 06/26/20 06/26/20 23:59 11:59 23:59 Intake Total 1050 / 1050 1054.25 / 1054.25 0 / 1054.25 Balance 1050 / 1050 1054.25 / 1054.25 0 / 1054.25 Weight 74.2 kg Intake: IV 1050 / 1050 1054.25 / 1054.25 0 / 1054.25 Other: Urine Color Yellow Urine Odor Normal Comment incont in brief incont mixed with stool Stool Size Moderate Stool Characteristics Liquid Mucoid Emesis Description None Voiding Methods Diaper Diaper Laboratory Results WBC 9.43 10^3/uL (4.4-10.8) D 06/26/20 07:53 RBC 3.25 10^6/uL (3.93-5.22) L 06/26/20 07:53 Hgb 9.7 g/dL (11.2-15.7) L 06/26/20 07:53 Hct 30.8 % (36.0-46.0) L 06/26/20 07:53 MCV 94.8 fL (80-95) 06/26/20 07:53 MCH 29.8 pg (27.0-33.0) 06/26/20 07:53 MCHC 31.5 % (32.0-36.0) L 06/26/20 07:53 RDW 14.8 % (11.7-14.6) H 06/26/20 07:53 Plt Count 243 10^3/uL (130-400) 06/26/20 07:53 MPV 9.7 fL (8.0-11.0) 06/26/20 07:53 Immature Gran % 0.3 06/26/20 07:53 Neutrophils % 75.6 06/26/20 07:53 Band Neutrophils % 2 06/25/20 18:00 Lymphocytes % 13.0 06/26/20 07:53 Monocytes % 10.4 06/26/20 07:53 Eosinophils % 0.4 06/26/20 07:53 Basophils % 0.3 06/26/20 07:53 Nucleated RBC % 0 % 06/26/20 07:53 Absolute Neutrophils 7.13 10^3/uL (1.2-6.7) H 06/26/20 07:53 Absolute Lymphocytes 1.23 10^3/uL (1.2-3.4) 06/26/20 07:53 Absolute Monocytes 0.98 10^3/uL (0.1-0.8) H 06/26/20 07:53 Absolute Eosinophils 0.04 10^3/uL (0.0-0.7) 06/26/20 07:53 Absolute Basophils 0.03 10^3/uL (0.0-0.2) 06/26/20 07:53 RBC Morphology Normal 06/25/20 18:00 PT 11.9 sec (9.3-11.0) H 06/25/20 18:55 INR 1.2 (0.9-1.1) H 06/25/20 18:55 APTT 25.2 sec (21.0-31.4) 06/25/20 18:55 Sodium 140 mmol/L (136-145) 06/26/20 07:53 Potassium 2.7 mmol/L (3.5-5.1) L* 06/26/20 07:53 Chloride 105 mmol/L (98-107) 06/26/20 07:53 Carbon Dioxide 25.4 mmol/L (21.0-32.0) 06/26/20 07:53 Anion Gap 9.6 mmol/L (3-11) 06/26/20 07:53 BUN 7 mg/dL (7-18) 06/26/20 07:53 Creatinine 0.78 mg/dL (0.55-1.02) 06/26/20 07:53 Estimated GFR/1.73 m2 >= 60.00 (mL/min/1.73m2) 06/26/20 07:53 Glucose 104 mg/dL (74-106) 06/26/20 07:53 Calcium 7.7 mg/dL (8.5-10.1) L 06/26/20 07:53 Magnesium 1.6 mg/dL (1.8-2.4) L 06/26/20 07:53 Total Bilirubin 0.3 mg/dL (0.2-1.0) 06/26/20 07:53 AST 15 U/L (15-37) 06/26/20 07:53 ALT 12 U/L (14-59) L 06/26/20 07:53 Alkaline Phosphatase 67 U/L (46-116) 06/26/20 07:53 Total Protein 5.9 g/dL (6.4-8.2) L 06/26/20 07:53 Albumin 2.0 g/dL (3.4-5.0) L 06/26/20 07:53 Urine Color Yellow (Yellow) 06/25/20 19:44 Urine Clarity Sl cloudy (Clear) 06/25/20 19:44 Urine pH 6.5 (5-8) 06/25/20 19:44 Ur Specific [place] 1.015 (1.005-1.025) 06/25/20 19:44 Urine Protein Negative mg/dL (Negative) 06/25/20 19:44 Urine Ketones Negative mg/dL (Negative) 06/25/20 19:44 Urine Blood Trace-intact (Negative) H 06/25/20 19:44 Urine Nitrite Positive (Negative) H 06/25/20 19:44 Urine Bilirubin Negative (Negative) 06/25/20 19:44 Urine Urobilinogen 0.2 EU/dL (Up TO 0.2) 06/25/20 19:44 Ur Leukocyte Esterase Large (Negative) H 06/25/20 19:44 Urine RBC 0-2 HPF (0-2) 06/25/20 19:44 Urine WBC >50 HPF (0-5) H 06/25/20 19:44 Ur Epithelial Cells Rare HPF (Negative) 06/25/20 19:44 Urine Crystals Negative HPF (Negative) 06/25/20 19:44 Urine Bacteria Many HPF (Negative) 06/25/20 19:44 Urine Casts Negative LPF (Negative) 06/25/20 19:44 Urine Mucus Negative (Negative) 06/25/20 19:44 Ur Culture Indicated? Yes 06/25/20 19:44 Urine Glucose Negative mg/dL (Negative) 06/25/20 19:44
[2020-06-26 12:45] VITALS: TEMP 34
[2020-06-26] MEDS: Apixaban 5 MG TAB PO ×2 (13:58→20:19)
[2020-06-26] MEDS: Metoprolol CR 25 MG TABCR 12.5 MG PO ×2 (13:59→20:19)
[2020-06-26] MEDS: Nystatin 500000 UNITS/5 ML SUSP 5ML CUP PO ×2 (14:02→20:17)
[2020-06-26] MEDS: POTASSIUM CHLORIDE 20 MEQ/100 ML BAG 50 MEQ IVPB ×2 (14:04→20:24)
[2020-06-26] MEDS: Potassium Chloride Liquid 20 MEQ PKT 40 MEQ PO (14:18)
[2020-06-26] MEDS: Magnesium Gluconate 500 MG TAB PO (14:21)
[2020-06-26 16:31] VITALS: BP 114/70; PULSE 80; RESP 17; TEMP 36.8; O2SAT 95
[2020-06-26 20:17] VITALS: BP 117/68; PULSE 79; RESP 18; TEMP 36.2; O2SAT 95
[2020-06-26] MEDS: Metoclopramide 10 MG TAB 5 MG PO (20:20)
[2020-06-26] MEDS: Psyllium PKT 1 EACH PO (20:22)
--- NOTE | 2020-06-26 20:39 | PDOC.CMIN ---
- If Service Date Differs Date of service: 06/26/20 Time of Service: 20:39 Care Management Initial Assess REASON FOR HOSPITALIZATION:: UTI, general weakness PAST MEDICAL HISTORY/PAST SURGICAL HISTORY:: Medical History . Adynamic ileus (Resolved). Benign paroxysmal vertigo. Benign paroxysmal vertigo, unspecified ear (Resolved). Cataract (Resolved). O.U 02/24/14; Dr. Martin left extraction 03/10/14; Dr. Martin right extraction. Cellulitis (Resolved). 07/31/16 both lower extremity. Cerebral arteriovenous malformation (Chronic). Cerebral vascular malformation. Cerebrovascular accident (CVA) (Chronic 01/20/16). seen on previous CT Scans 2015. Decreased muscle tone (Chronic). 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 Deficient knowledge of tracheostomy home care (Inactive). Depression. Depressive disorder (Chronic). DVT prophylaxis (Inactive). Dysphagia (Inactive 01/01/18). Essential hypertension (Chronic 10/31/13). Hip pain (Chronic). bilateral. 2015 - mild arthritis right. History of tobacco use (Resolved). 2 ppd; quit in 2000. Hyperlipidemia. Hyperlipidemia (Chronic 04/15/13). Hypertension. Leukocytosis (Inactive). Low back pain (Chronic 03/04/06). L 2-3 disc narrowing. L hip-mild acetabular spurring. 2015 - severe arthritis at facet joints. Lumbago. Nausea and vomiting (Inactive). Oral ulcer (Resolved). 12/07/16. Peripheral edema (Chronic 07/31/16). Peripheral venous insufficiency (Chronic 12/03/08). edema. Pneumonia of right lower lobe due to infectious organism (Resolved). Polyp of colon (Resolved). colonoscopy of 01/09/11-multiple polyps at multiple locations. mixed adenomatous polyp; colon lipoma. 08/2014-multiple polyps-ascending, sigmoid and rectal polyps; TUBULAR ADENOMAS. Poor balance (Resolved). 05/10/15. 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 Pulmonary embolus (Resolved 05/10/15). pt opted after years of coumadin to stop and go on ASA. Very hard to regulate and cannot afford alternatives. Understands the risks. Repeat again - PE. back on anticoagualtion. Seizure (Resolved). ? of seizures; on medication for time; now off w/no change. Stenosis of carotid artery (Chronic 01/20/16). carotid us 01/18. TMJ (temporomandibular joint disorder) (Resolved). right. Tracheostomy hemorrhage (Resolved). Transient ischemic attack (Resolved 08/04/03). POS MRI R TEMPORAL LOBE. NEG ECHO 2000. Urinary incontinence (Chronic 11/10/14). Vaginal lesion (Resolved). 03/22/16. Venous insufficiency. Visual disturbance (Resolved). etiology unclear per -exam of 03/14/11. Vitamin D deficiency. Vitamin D deficiency (Chronic 03/11/09). Vulvovaginitis (Resolved). Surgical History . Extraction of cataract. 02/24/14; LEFT EYE. 03/10/14; RIGHT EYE. History of bilateral tubal ligation (Resolved). History of laryngectomy (Acute). Ligation of fallopian tube. Status post gastrostomy (Acute). Status post tracheostomy (Acute) PREVIOUS FUNCTIONAL STATUS/SOCIAL/FAMILY SUPPORTS:: Lisa lives in her own home and her family provides supportive care. She has three children Jasmin, Trini and Abdulaziz who all provide support at home. Lisa was recently discharged from [facility] on 11/27/2019 status post trach after surgical removal of her thyroid and Larnx. CURRENT FUNCTIONAL STATUS:: Lisa was sitting up in her bed when CM met with her. She reported that she was feeling well today, and that things have been going ok at home. She has appointed Abdulaziz to be her visitor for this admission. CM will continue to follow. ADVANCE DIRECTIVES:: Multiple AD's and COLST on her chart. Has patient been provided with info about the portal/API?: Yes Did the patient sign up for the portal?: No CODE STATUS:: DNR/DNI INSURANCE COVERAGE / FINANCIAL ISSUES:: [facility] MCR Replacement/ [facility]/ [facility] CURRENT HOME/COMMUNITY SERVICES/EQUIPMENT:: D[employer], Oxygen, humidification, suctiion, feeding tube. oncology, supports through [facility] PRIMARY CARE PHYSICIAN:: Dr. Sánchez POTENTIAL DISCHARGE NEEDS:: Evaluations for further needs, continuation of services, follow up appoinments. PATIENT/FAMILY EDUCATION NEEDS:: Review discharge instructions regarding activity levels and medications, discussion of self care needs including ask me three and goals of care. ANTICIPATED BARRIERS TO DISCHARGE:: None identified at this time. TRANSPORTATION:: Via private vehicle by family. PLAN:: Anticipate Lisa will return home when medically cleared with a resumption of services. She will be driven home via private vehicle by family. She will follow up with her PCP and discharge plan of care. CM will continue to follow.
[2020-06-26 21:02] LABS: COVID-19 RT-PCR UVMMC Result Negative (Negative)
[2020-06-26] MEDS: cefTRIAXone 1 GM/50 ML BAG IVPB (21:53)
[2020-06-27] VITALS (7 sets, daily range): BP systolic 117–149; BP diastolic 69–84; PULSE 64–79; RESP 17–20; TEMP 34–36.9; O2SAT 95–98
[2020-06-27] MEDS: POTASSIUM CHLORIDE/0.9% NACL 1,000 ML 85 MEQ IV (02:15)
[2020-06-27] MEDS: metroNIDAZOLE 500 MG/100 ML BAG 100 MG IVPB ×4 (03:35→22:25)
[2020-06-27 08:37] LABS: Abs Immature Grans 0.03 10^3/uL (0.0-0.06); Absolute Basophil Count 0.03 10^3/uL (0.0-0.2); Absolute Eosinophil Count 0.12 10^3/uL (0.0-0.7); Absolute Lymphocyte Count 1.48 10^3/uL (1.2-3.4); Absolute Monocyte Count 0.51 10^3/uL (0.1-0.8); Basophils % 0.4; Eosinophils % 1.7; HCT 30.7 % (36.0-46.0); HGB 9.7 g/dL (11.2-15.7); Immature Grans % 0.4; Lymphocytes % 20.4; MCH 29.8 pg (27.0-33.0); MCHC 31.6 % (32.0-36.0); MCV 94.5 fL (80-95); Neutrophils % 70.1; Nucleated RBC 0 %; Platelet Count 278 10^3/uL (130-400); RBC 3.25 10^6/uL (3.93-5.22); RDW-SD 52.2 fL; WBC 7.27 10^3/uL (4.4-10.8)
[2020-06-27 08:40] LABS: Iron 54 ug/dL (50-170); Total Iron Binding Capacity 165 ug/dL (250-450); Transferrin Sat 33 % (15-50)
[2020-06-27 08:41] LABS: Anion Gap 8.7 mmol/L (3-11); BUN 5 mg/dL (7-18); CO2 21.3 mmol/L (21.0-32.0); CREATININE 0.72 mg/dL (0.55-1.02); Calcium 7.9 mg/dL (8.5-10.1); Chloride 109 mmol/L (98-107); Glucose 107 mg/dL (74-106); LDH 133 U/L (81-234); Magnesium 2.2 mg/dL (1.8-2.4); Potassium 3.7 mmol/L (3.5-5.1); Reticulocyte 1.3 % (0.5-2.4); Sodium 139 mmol/L (136-145)
[2020-06-27] MEDS: Magnesium Gluconate 500 MG TAB PO (08:59)
[2020-06-27] MEDS: Metoclopramide 10 MG TAB 5 MG PO ×2 (08:59→20:40)
[2020-06-27] MEDS: Psyllium PKT 1 EACH PO ×2 (08:59→20:43)
[2020-06-27] MEDS: Nystatin 500000 UNITS/5 ML SUSP 5ML CUP PO ×3 (08:59→20:43)
[2020-06-27] MEDS: Potassium Chloride Liquid 20 MEQ PKT 40 MEQ PO (08:59)
[2020-06-27] MEDS: Metoprolol CR 25 MG TABCR 12.5 MG PO ×2 (09:00→20:41)
[2020-06-27] MEDS: Ferrous Sulfate 325 MG TAB PO (09:00)
[2020-06-27] MEDS: Apixaban 5 MG TAB PO ×2 (09:00→20:40)
--- NOTE | 2020-06-27 13:04 | W.PM.PROGNOT ---
Date of Service Date of service: 06/27/20 Time of Service: 13:04 Assessment and Plan Assessment and plan (1) C. 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 If she continues to do well I will transition her over to oral form of Flagyl but continue with the vancomycin as well because of the severity of her diarrhea. I think she should be treated for 2 weeks and then go on a tapering dose of Flagyl. (2) Acute UTI: Status: Acute Assessment and plan: Blood culture results are still pending but have been no growth at 24 hours so far. Urine culture is growing gram-negative rods growing 100,000 colonies for which she is on Rocephin 1 g IV daily. She remains afebrile with normalization of her white count. (3) Hypokalemia: Status: Resolved Assessment and plan: Resolved however she requires both IV and oral supplementation to compensate for GI losses. (4) Hypomagnesemia: Status: Acute Assessment and plan: Resolved after treatment with oral and IV supplementation. Continue on oral supplementation. Monitor her levels. (5) Protein-calorie malnutrition, mild: Status: Chronic Assessment and plan: I advance her diet she seems to be tolerating this well. I am going to recommend high-protein supplemental shakes to be given orally between meals. (6) Anemia of chronic disease: Status: Chronic Assessment and plan: Hemoglobin is stable at 9.7 g. This appears to be about her baseline. She is back on her oral iron supplementation. (7) Atrial fibrillation with controlled ventricular rate: Status: Acute Assessment and plan: History of PAF however rhythm seems to be regular. She remains on apixaban for anticoagulation and metoprolol succinate for rate control. (8) DVT prophylaxis: Status: Acute Assessment and plan: Resume apixaban for her PAF. Subjective Subjective Interval history since last seen: Patient denies any nausea or vomiting. Abdominal pain is markedly improved. She is still stooling with loose bowel movements. She continues to receive Flagyl IV and oral vancomycin for her C. difficile colitis. Urine culture is growing gram-negative rere Jeremy 100,000 colonies for which she is receiving Rocephin 1 g IV daily. She remains afebrile and her leukocytosis resolved yesterday and remains within normal limits. She has a stable chronic iron deficiency anemia for which she is receiving iron supplementation. She is requested that her diet be upgraded. She was receiving thickened liquids with moist and and minced foods. I will continue the moist and minced foods to prevent aspiration but upgraded her liquids to thin liquids. She is declined to take her enteral supplementation. I think as long she continues eating well and has no nausea or vomiting and no increased abdominal pain we can hold off any enteral supplementation through her G-tube. I have decreased her IV fluid rate to 65 mL's per hour if she continues to do well orally I will stop her IV fluids. Potassium is finally normalized to 3.7. She will remain on oral potassium supplementation to make up for her GI losses. If she continues to do well on her current regimen for her C. difficile colitis then I expect that she will probably be ready for discharge either to home or to a SNF in the next 24 to 48 hours. Exam Narrative Exam Narrative: Elderly female sitting up in her bed. She is nonverbal secondary to previous head neck cancer surgery and permanent tracheostomy. She seems to be alert and very appropriate nodding yes and no and mouthing answers to my questions. She denies any discomfort. Lungs are clear to auscultation anteriorly. Heart is regular rate and rhythm. Abdomen soft nondistended normal active bowel sounds no guarding no rebound tenderness. Objective Objective Clinical Data: Abnormal lab results 06/26/20 06/27/20 06/27/20 Range/Units 14: 07:51 07:51 RBC 3.25 L (3.93-5.22) 10^6/uL Hgb 9.7 L (11.2-15.7) g/dL Hct 30.7 L (36.0-46.0) % MCHC 31.6 L (32.0-36.0) % RDW 15.0 H (11.7-14.6) % Potassium 3.0 L (3.5-5.1) mmol/L Chloride 109 H (98-107) mmol/L BUN 5 L (7-18) mg/dL Glucose 107 H (74-106) mg/dL Calcium 7.9 L (8.5-10.1) mg/dL TIBC (250-450) ug/dL 06/27/20 Range/Units 07:51 RBC (3.93-5.22) 10^6/uL Hgb (11.2-15.7) g/dL Hct (36.0-46.0) % MCHC (32.0-36.0) % RDW (11.7-14.6) % Potassium (3.5-5.1) mmol/L Chloride (98-107) mmol/L BUN (7-18) mg/dL Glucose (74-106) mg/dL Calcium (8.5-10.1) mg/dL TIBC 165 L (250-450) ug/dL Vital Signs Temperature 36.7 C 06/27/20 08:25 Temperature Source Temporal Artery Scan 06/27/20 08:25 Pulse 73 06/27/20 08:25 Pulse Rhythm Regular 06/27/20 09:45 Respiratory Rate 18 06/27/20 08:25 Respiratory Effort 06/27/20 09:45 Respiratory Depth Normal 06/27/20 09:45 Respiratory Pattern Normal 06/27/20 09:45 Blood Pressure 142/78 H 06/27/20 08:25 Blood Pressure Position Supine 06/25/20 17:48 Pulse Oximetry 95 06/27/20 08:25 Oxygen Delivery Method Trach Collar 06/27/20 08:25 Oxygen Flow Rate 0 06/27/20 03:52 Fraction of Inspired Oxygen (FIO2) 21 06/26/20 12:45 Pain Level 0 06/27/20 08:25 Intake & Output 06/26/20 06/27/20 06/27/20 23:59 11:59 23:59 Intake Total 1790 / 2844.25 640 / 640 Balance 1790 / 2844.25 640 / 640 Intake: IV 1550 / 2604.25 100 / 100 Oral 240 / 240 300 / 300 Intake, Tube Feeding Amount 240 / 240 Other: Urine Color Yellow Urine Odor Normal Comment urine mixed with stool Stool Occult Blood Negative Negative Stool Size Moderate Large Moderate Stool Characteristics Liquid Liquid Brown Brown Voiding Methods Diaper Incontinent Laboratory Results WBC 7.27 10^3/uL (4.4-10.8) 06/27/20 07:51 RBC 3.25 10^6/uL (3.93-5.22) L 06/27/20 07:51 Hgb 9.7 g/dL (11.2-15.7) L 06/27/20 07:51 Hct 30.7 % (36.0-46.0) L 06/27/20 07:51 MCV 94.5 fL (80-95) 06/27/20 07:51 MCH 29.8 pg (27.0-33.0) 06/27/20 07:51 MCHC 31.6 % (32.0-36.0) L 06/27/20 07:51 RDW 15.0 % (11.7-14.6) H 06/27/20 07:51 Plt Count 278 10^3/uL (130-400) 06/27/20 07:51 MPV 10.0 fL (8.0-11.0) 06/27/20 07:51 Reticulocyte % (Auto) 1.3 % (0.5-2.4) 06/27/20 07:51 Immature Gran % 0.4 06/27/20 07:51 Neutrophils % 70.1 06/27/20 07:51 Band Neutrophils % 2 06/25/20 18:00 Lymphocytes % 20.4 06/27/20 07:51 Monocytes % 7.0 06/27/20 07:51 Eosinophils % 1.7 06/27/20 07:51 Basophils % 0.4 06/27/20 07:51 Nucleated RBC % 0 % 06/27/20 07:51 Absolute Neutrophils 5.10 10^3/uL (1.2-6.7) 06/27/20 07:51 Absolute Lymphocytes 1.48 10^3/uL (1.2-3.4) 06/27/20 07:51 Absolute Monocytes 0.51 10^3/uL (0.1-0.8) 06/27/20 07:51 Absolute Eosinophils 0.12 10^3/uL (0.0-0.7) 06/27/20 07:51 Absolute Basophils 0.03 10^3/uL (0.0-0.2) 06/27/20 07:51 RBC Morphology Normal 06/25/20 18:00 PT 11.9 sec (9.3-11.0) H 06/25/20 18:55 INR 1.2 (0.9-1.1) H 06/25/20 18:55 APTT 25.2 sec (21.0-31.4) 06/25/20 18:55 Sodium 139 mmol/L (136-145) 06/27/20 07:51 Potassium 3.7 mmol/L (3.5-5.1) D 06/27/20 07:51 Chloride 109 mmol/L (98-107) H 06/27/20 07:51 Carbon Dioxide 21.3 mmol/L (21.0-32.0) 06/27/20 07:51 Anion Gap 8.7 mmol/L (3-11) 06/27/20 07:51 BUN 5 mg/dL (7-18) L 06/27/20 07:51 Creatinine 0.72 mg/dL (0.55-1.02) 06/27/20 07:51 Estimated GFR/1.73 m2 >= 60.00 (mL/min/1.73m2) 06/27/20 07:51 Glucose 107 mg/dL (74-106) H 06/27/20 07:51 Calcium 7.9 mg/dL (8.5-10.1) L 06/27/20 07:51 Magnesium 2.2 mg/dL (1.8-2.4) 06/27/20 07:51 Iron 54 ug/dL (50-170) 06/27/20 07:51 TIBC 165 ug/dL (250-450) L 06/27/20 07:51 Transferrin % Sat 33 % (15-50) 06/27/20 07:51 Total Bilirubin 0.3 mg/dL (0.2-1.0) 06/26/20 07:53 AST 15 U/L (15-37) 06/26/20 07:53 ALT 12 U/L (14-59) L 06/26/20 07:53 Alkaline Phosphatase 67 U/L (46-116) 06/26/20 07:53 Lactate Dehydrogenase 133 U/L (81-234) 06/27/20 07:51 Total Protein 5.9 g/dL (6.4-8.2) L 06/26/20 07:53 Albumin 2.0 g/dL (3.4-5.0) L 06/26/20 07:53 Urine Color Yellow (Yellow) 06/25/20 19:44 Urine Clarity Sl cloudy (Clear) 06/25/20 19:44 Urine pH 6.5 (5-8) 06/25/20 19:44 Ur Specific [place] 1.015 (1.005-1.025) 06/25/20 19:44 Urine Protein Negative mg/dL (Negative) 06/25/20 19:44 Urine Ketones Negative mg/dL (Negative) 06/25/20 19:44 Urine Blood Trace-intact (Negative) H 06/25/20 19:44 Urine Nitrite Positive (Negative) H 06/25/20 19:44 Urine Bilirubin Negative (Negative) 06/25/20 19:44 Urine Urobilinogen 0.2 EU/dL (Up TO 0.2) 06/25/20 19:44 Ur Leukocyte Esterase Large (Negative) H 06/25/20 19:44 Urine RBC 0-2 HPF (0-2) 06/25/20 19:44 Urine WBC >50 HPF (0-5) H 06/25/20 19:44 Ur Epithelial Cells Rare HPF (Negative) 06/25/20 19:44 Urine Crystals Negative HPF (Negative) 06/25/20 19:44 Urine Bacteria Many HPF (Negative) 06/25/20 19:44 Urine Casts Negative LPF (Negative) 06/25/20 19:44 Urine Mucus Negative (Negative) 06/25/20 19:44 Ur Culture Indicated? Yes 06/25/20 19:44 Urine Glucose Negative mg/dL (Negative) 06/25/20 19:44 COVID-19 PCR Negative (Negative) 06/25/20 22:15 Nasopharyn COVID-19 PCR Not Applicable 06/25/20 22:15 Ref Test [facility] 06/25/20 22:15
--- NOTE | 2020-06-27 16:07 | PDOC.CMPRO ---
- If Service Date Differs Date of service: 06/27/20 Time of Service: 16:07 Care Management Progress Note S/O: Per report, Lisa has refused tube feeding and is able to eat by mouth at this time. She continues to be treated for C.Diff and UTI with abx. Dr. Sánchez called and spoke to CM regarding Lisa's disposition, stating that the family is struggling to take care of her at home. She currently has care takers and family, which combined provides 24 hour care. CM will continue to follow. A: Lisa is an 80 year old female admitted to [facility] on 06/25/20 for UTI. P: Anticipate Lisa will return home with caregivers vs SNF placement. Dr. Sánchez will visit with Lisa tomorrow. CM will continue to follow and support discharge planning considerations.
[2020-06-27] MEDS: POTASSIUM CHLORIDE/0.9% NACL 1,000 ML 65 MEQ IV (17:26)
[2020-06-27] MEDS: cefTRIAXone 1 GM/50 ML BAG IVPB (22:05)
[2020-06-28] VITALS (7 sets, daily range): BP systolic 99–147; BP diastolic 62–79; PULSE 64–77; RESP 18–20; TEMP 34–36.9; O2SAT 96–98
[2020-06-28] MEDS: metroNIDAZOLE 500 MG/100 ML BAG 100 MG IVPB ×4 (04:00→22:19)
[2020-06-28 08:00] LABS: Anion Gap 9.7 mmol/L (3-11); BUN 5 mg/dL (7-18); CO2 20.3 mmol/L (21.0-32.0); CREATININE 0.71 mg/dL (0.55-1.02); Calcium 8.1 mg/dL (8.5-10.1); Chloride 109 mmol/L (98-107); Glucose 109 mg/dL (74-106); Potassium 4.2 mmol/L (3.5-5.1); Sodium 139 mmol/L (136-145)
[2020-06-28] MEDS: Magnesium Gluconate 500 MG TAB PO (08:12)
[2020-06-28] MEDS: Nystatin 500000 UNITS/5 ML SUSP 5ML CUP PO ×3 (08:13→20:39)
[2020-06-28] MEDS: Metoprolol CR 25 MG TABCR 12.5 MG PO ×2 (08:13→20:38)
[2020-06-28] MEDS: Psyllium PKT 1 EACH PO ×2 (08:13→20:36)
[2020-06-28] MEDS: Metoclopramide 10 MG TAB 5 MG PO ×2 (08:13→20:37)
[2020-06-28] MEDS: Potassium Chloride Liquid 20 MEQ PKT 40 MEQ PO (08:13)
[2020-06-28] MEDS: Ferrous Sulfate 325 MG TAB PO (08:13)
[2020-06-28] MEDS: Apixaban 5 MG TAB PO ×2 (08:14→20:37)
--- NOTE | 2020-06-28 09:02 | W.PALLCONSUL ---
Date of service: 06/28/20 Time of Service: 08:03 History of Present Illness Narrative: Lisa is an 80-year-old woman who has had a ivanna 8 to 10 months. She was diagnosed with neck cancer and underwent extensive surgery and rehab spending about 90 days at [facility]. Since then she has been in and out of the hospital most recently for C. difficile. I was called outpatient last week regarding her diarrhea. I did have a stool sample sent for the C. difficile as well as a urine sample. At that time she stated that she did not want to go to the hospital even though she knew that the past she did develop sepsis and got very sick. Things worsened and she was not able to keep down the vancomycin that I had prescribed. She came to the emergency room and was admitted. She was found to have a UTI and C. difficile. I am seeing her today. She says she is feeling better. Nursing states that she had 6 loose bowel movements yesterday evening 2 at night and she was transferred because she is only had one this morning. She feels like things are slowing down and she is feeling better. She did tell nursing that she was really tired and fatigued from all of this yoyoing. There is significant family dysfunction. One daughter is not supposed to be involved per Lisa but yet she is on the HIPPA and also the DPOAE form. Another daughter was very upset with me last hospitalization because I spoke to her mother about choices for the future. Her son is often her visitor. He seems to go along with the group. Because of this I did not see Lisa and follow her the last time she was in the hospital for C. difficile other than our first meeting. Lisa has told the family that she wants to continue with me as her PCP despite their irritation with me. I had seen Lisa on and a home visit. Again at that time she was very clear that she did not want to go to the hospital. I did tell her that she always has a choice to go not I recommended that they call 911 if that was her choice. She is now inpatient on IV fluids and antibiotics. Consults Consult date: 06/28/20 Requesting physician: Jimbo Kidd Assessment and Plan Assessment and plan (1) Hypomagnesemia: Status: Acute (2) COPD (chronic obstructive pulmonary disease): Status: Chronic Qualifiers: COPD type: unspecified COPD Qualified Code(s): J44.9 - Chronic obstructive pulmonary disease, unspecified (3) C. difficile diarrhea: Status: Acute (4) Acute UTI: Status: Acute (5) Physical deconditioning: Status: Acute (6) Atrial fibrillation with controlled ventricular rate: Status: Acute (7) Palliative care patient: Status: Acute Assessment and plan: The biggest problem is Lisa's frailty. She seems to be on a ledge with very little reserve. Hopefully her C. difficile will clear up and she will be able to go back to living more independently Lisa's family loves her very much but often times cannot safely handle all of Lisa's needs. She may need to be placed in a mcfp because of her multiple needs. She did put on a white board that her children will not let her go to a mcfp. It is interesting because many times they are overwhelmed with her care but yet they love her and want her to stay home. At times home health has said that some of the family members were exhausted from her care C. difficile and UTI continue to treat and maintain hydration. Discussed with Hospitalist team. I will continue to follow Lisa. Very difficult case especially because Lisa loves her children and tries to do what ever will make them happy sometimes at her own expense. My duty is to Lisa. This document was created by [employer] software. Content was screened for misspellings, grammatical mistakes, etc. I apologize for any problems, but please contact me for further clarification if needed. (8) DNR (do not resuscitate): Status: Acute Review of Systems Narrative: She is feeling better, less drained. She continues to have diarrhea but it is not as frequent. She does not have any chest pain. She has shortness of breath baseline. Her abdomen is a bit tender considering all that she has been through. She talks through a white board or mouthing the words as she no longer has a voice box. [facility], [facility] Medical History (Updated 06/28/20 @ 17:37 by Caridad Sánchez MD, DC) Adynamic ileus (Resolved) Anemia due to blood loss, acute (Acute) Anxiety (Chronic) Atrial fibrillation with controlled ventricular rate (Acute) Benign paroxysmal vertigo Benign paroxysmal vertigo, unspecified ear (Resolved) Cataract (Resolved) O.U 02/24/14; Dr. Martin left extraction 03/10/14; Dr. 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 L hip-mild acetabular spurring 2014 - severe arthritis at facet joints Lumbago Nausea and vomiting (Inactive) Neutrophilic leukocytosis (Resolved) Oral thrush (Resolved) Oral ulcer (Resolved) 12/07/16 Peripheral edema (Chronic 07/31/16) Peripheral venous insufficiency (Chronic 12/03/08) edema Pharyngoesophageal dysphagia (Inactive) Physical deconditioning (Acute) Pneumonia of right lower lobe due to infectious organism (Resolved) Polyp of colon (Resolved) colonoscopy of 01/09/11-multiple polyps at multiple locations. 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 Very hard to regulate and cannot afford alternatives. Understands the risks. Repeat again - PE. back on anticoagualtion Right vocal cord cancer (Inactive) Seizure (Resolved) ? 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 NEG ECHO 2000 Urinary incontinence (Chronic 11/10/14) Vaginal lesion (Resolved) 03/22/16 Venous insufficiency Visual disturbance (Resolved) etiology unclear per -exam of 03/14/11 Vitamin D deficiency Vitamin D deficiency (Chronic 03/11/09) Vulvovaginitis (Resolved) Surgical History Extraction of cataract 02/24/14; LEFT EYE 03/10/14; RIGHT EYE History of bilateral tubal ligation (Resolved) History of laryngectomy (Acute) Ligation of fallopian tube Status post gastrostomy (Acute) Status post tracheostomy (Acute) Family History Mother , 85 Vaginal cancer Father , 74 Heart disease COPD (chronic obstructive pulmonary disease) Sister , 63 Heart disease ASHD/CHF Lung cancer Maternal Grandmother Heart disease Paternal Grandmother Diabetes Son , 40 Substance abuse Heart disease Sister No problems noted. Sister No problems noted. Son RA (rheumatoid arthritis) Daughter No problems noted. Daughter No problems noted. Paternal Grandfather , 80 No problems noted. Social History Smoking/Tobacco Use Status: Former Tobacco Use Quit Date: 06/05/01 Second Hand Exposure: Yes Alcohol Intake: former Drug use: Never Substance use type: does not use Caregiver/Support person: No Household members: none Housing: house Do you need help understanding health information?: Rarely Pets and animals: No Sexually active: No Current gender identity: female What is your relationship status?: How often do you talk on the phone with friends or family?: decline to answer How often do you get together with friends or relatives?: once per week How often do you attend judaism or roman catholic services?: decline to answer Do you belong to any clubs or organized social groups?: no Panel score (0-1 are the most socially isolated patients): 0 What type of physical activity do you participate in: decline to answer Duration: decline to answer Frequency: decline to answer Bethany/Denominational: Hinduism Special bethany needs: No Seatbelt use: always Helmet use: No Drive intox or ride w/intox cdl dedicated truck driver: No Do you feel safe at home: Yes Do you feel safe in your relationship?: Yes Exam Narrative Exam Narrative: Lisa is sitting in her chair. She looks tired but not exhausted. She writes different things on her white board regarding her stooling pattern etc. Her heart is regular but it is a little hard to hear. Lungs a few scattered rales but generally good aeration. Abdomen is nontender her PEG tube looks quite clear. Results Last Vital Signs Temp 97.2 F L 06/28/20 07:36 Pulse 64 06/28/20 07:36 Resp 20 06/28/20 07:36 BP 128/73 06/28/20 07:36 Pulse Ox 97 06/28/20 07:36 Labs Result diagrams: 06/27/20 07:51 06/28/20 07:20 Labs: Laboratory Results - last 24 hr 06/28/20 07:20 Sodium 139 Potassium 4.2 Chloride 109 H Carbon Dioxide 20.3 L Anion Gap 9.7 BUN 5 L Creatinine 0.71 Estimated GFR/1.73 m2 >= 60.00 Glucose 109 H Calcium 8.1 L
--- NOTE | 2020-06-28 10:21 | W.NUTCONSULT ---
Date of service: 06/28/20 Time of Service: 10:00 Nutritional Consult ASSESSMENT: 80 y/o female w/ hx CVA c/o NVD which she reports is now subsiding. Family member helped w/ diet hx. She is on Heart healthy, minced, moist, soft diet. Has some difficulty w/ swallowing r/t CVA and previous surgical procedure. Requests extra gravy for ease of mastication. CDM is aware. Lisa is receiving Ensure 237 ml BID to max intake and increase PRO to help w/ stage 1 decubitus. She reports 100% intake at breakfast and 50% supplement consumed after meals. Noted: she was on TPN in May during inpatient stay. She and her son report that she is feeling a bit better since admission. Noted; Hx anemia r/t blood loss. Fe is WNL at this time. NUTRITIONAL DIAGNOSIS: Mild malnutrition w/ PCM r/t swallowing difficulties AEB: vocal cord paralysis, P/S small bowel obstruction. INTERVENTION: Recommend GLOBAL PROCESS OWNER consult to review swallowing ability and techniques for max intake at meals. Patient and son aware of alternating solids and lx to help with swallowing foods. MONITORING AND EVALUATION: Monitor Labs, enc intake as hayley. F/U w/ GLOBAL PROCESS OWNER. Time Spent in Nutritional Counseling and Treatment: 15 minutes
--- NOTE | 2020-06-28 12:36 | W.PM.PROGNOT ---
Date of Service Date of service: 06/28/20 Time of Service: 12:36 Assessment and Plan Assessment and plan (1) C. 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 If she continues to do well I will transition her over to oral form of Flagyl but continue with the vancomycin as well because of the severity of her diarrhea. I think she should be treated for 2 weeks and then go on a tapering dose of Flagyl. (2) Acute UTI: Status: Acute Assessment and plan: Blood culture results are still pending but have been no growth at 24 hours so far. Urine culture is growing gram-negative rods growing 100,000 colonies for which she is on Rocephin 1 g IV daily. She remains afebrile with normalization of her white count. (3) Hypokalemia: Status: Resolved Assessment and plan: Resolved however she requires both IV and oral supplementation to compensate for GI losses. (4) Hypomagnesemia: Status: Acute Assessment and plan: Resolved after treatment with oral and IV supplementation. Continue on oral supplementation. Monitor her levels. (5) Protein-calorie malnutrition, mild: Status: Chronic Assessment and plan: I advance her diet she seems to be tolerating this well. I am going to recommend high-protein supplemental shakes to be given orally between meals. (6) Anemia of chronic disease: Status: Chronic Assessment and plan: Hemoglobin is stable at 9.7 g. This appears to be about her baseline. She is back on her oral iron supplementation. (7) Atrial fibrillation with controlled ventricular rate: Status: Acute Assessment and plan: History of PAF however rhythm seems to be regular. She remains on apixaban for anticoagulation and metoprolol succinate for rate control. (8) DVT prophylaxis: Status: Acute Assessment and plan: Apixaban resumed. Subjective Subjective Interval history since last seen: Patient denies any nausea or vomiting. Stools are lessening. She has no abdominal pain. Appetite is improved and she seems to be tolerating oral feedings. She is declining to take any G-tube feedings. I explained Lisa that I think she is getting ready for discharge and can probably be discharged tomorrow on continued oral vancomycin and metronidazole Exam Narrative Exam Narrative: Elderly female sitting up in her bed. She is nonverbal secondary to previous head neck cancer surgery and permanent tracheostomy. She seems to be alert and very appropriate nodding yes and no and mouthing answers to my questions. She denies any discomfort. Lungs are clear to auscultation anteriorly. Heart is regular rate and rhythm. Abdomen soft nondistended normal active bowel sounds no guarding no rebound tenderness. Objective Objective Clinical Data: Abnormal lab results 06/28/20 Range/Units 07:20 Chloride 109 H (98-107) mmol/L Carbon Dioxide 20.3 L (21.0-32.0) mmol/L BUN 5 L (7-18) mg/dL Glucose 109 H (74-106) mg/dL Calcium 8.1 L (8.5-10.1) mg/dL Vital Signs Temperature 36.6 C 06/28/20 11:11 Temperature Source Tympanic 06/28/20 11:11 Pulse 77 06/28/20 11:11 Pulse Rhythm Regular 06/28/20 10:04 Respiratory Rate 19 06/28/20 11:11 Respiratory Effort 06/28/20 10:04 Respiratory Depth Normal 06/28/20 10:04 Respiratory Pattern Normal 06/28/20 10:04 Blood Pressure 133/76 06/28/20 11:11 Blood Pressure Position Supine 06/25/20 17:48 Pulse Oximetry 98 06/28/20 11:11 Oxygen Delivery Method Room Air 06/28/20 11:11 Oxygen Flow Rate 0 06/28/20 11:11 Fraction of Inspired Oxygen (FIO2) 21 06/27/20 13:30 Pain Level 0 06/28/20 11:11 Comment 06/28/20 00:22 Intake & Output 06/27/20 06/28/20 06/28/20 23:59 11:59 23:59 Intake Total 2252.250 / 2892.250 854.083 / 854.083 Balance 2252.250 / 2892.250 854.083 / 854.083 Weight 74.8 kg Intake: IV 1652.250 / 1752.250 374.083 / 374.083 Oral 600 / 900 480 / 480 Other: Urine Color Yellow Stool Occult Blood Negative Stool Size Moderate Moderate Stool Characteristics Liquid Soft Voiding Methods Diaper Diaper Incontinent Incontinent Laboratory Results WBC 7.27 10^3/uL (4.4-10.8) 06/27/20 07:51 RBC 3.25 10^6/uL (3.93-5.22) L 06/27/20 07:51 Hgb 9.7 g/dL (11.2-15.7) L 06/27/20 07:51 Hct 30.7 % (36.0-46.0) L 06/27/20 07:51 MCV 94.5 fL (80-95) 06/27/20 07:51 MCH 29.8 pg (27.0-33.0) 06/27/20 07:51 MCHC 31.6 % (32.0-36.0) L 06/27/20 07:51 RDW 15.0 % (11.7-14.6) H 06/27/20 07:51 Plt Count 278 10^3/uL (130-400) 06/27/20 07:51 MPV 10.0 fL (8.0-11.0) 06/27/20 07:51 Reticulocyte % (Auto) 1.3 % (0.5-2.4) 06/27/20 07:51 Immature Gran % 0.4 06/27/20 07:51 Neutrophils % 70.1 06/27/20 07:51 Band Neutrophils % 2 06/25/20 18:00 Lymphocytes % 20.4 06/27/20 07:51 Monocytes % 7.0 06/27/20 07:51 Eosinophils % 1.7 06/27/20 07:51 Basophils % 0.4 06/27/20 07:51 Nucleated RBC % 0 % 06/27/20 07:51 Absolute Neutrophils 5.10 10^3/uL (1.2-6.7) 06/27/20 07:51 Absolute Lymphocytes 1.48 10^3/uL (1.2-3.4) 06/27/20 07:51 Absolute Monocytes 0.51 10^3/uL (0.1-0.8) 06/27/20 07:51 Absolute Eosinophils 0.12 10^3/uL (0.0-0.7) 06/27/20 07:51 Absolute Basophils 0.03 10^3/uL (0.0-0.2) 06/27/20 07:51 RBC Morphology Normal 06/25/20 18:00 PT 11.9 sec (9.3-11.0) H 06/25/20 18:55 INR 1.2 (0.9-1.1) H 06/25/20 18:55 APTT 25.2 sec (21.0-31.4) 06/25/20 18:55 Sodium 139 mmol/L (136-145) 06/28/20 07:20 Potassium 4.2 mmol/L (3.5-5.1) 06/28/20 07:20 Chloride 109 mmol/L (98-107) H 06/28/20 07:20 Carbon Dioxide 20.3 mmol/L (21.0-32.0) L 06/28/20 07:20 Anion Gap 9.7 mmol/L (3-11) 06/28/20 07:20 BUN 5 mg/dL (7-18) L 06/28/20 07:20 Creatinine 0.71 mg/dL (0.55-1.02) 06/28/20 07:20 Estimated GFR/1.73 m2 >= 60.00 (mL/min/1.73m2) 06/28/20 07:20 Glucose 109 mg/dL (74-106) H 06/28/20 07:20 Calcium 8.1 mg/dL (8.5-10.1) L 06/28/20 07:20 Magnesium 2.2 mg/dL (1.8-2.4) 06/27/20 07:51 Iron 54 ug/dL (50-170) 06/27/20 07:51 TIBC 165 ug/dL (250-450) L 06/27/20 07:51 Transferrin % Sat 33 % (15-50) 06/27/20 07:51 Total Bilirubin 0.3 mg/dL (0.2-1.0) 06/26/20 07:53 AST 15 U/L (15-37) 06/26/20 07:53 ALT 12 U/L (14-59) L 06/26/20 07:53 Alkaline Phosphatase 67 U/L (46-116) 06/26/20 07:53 Lactate Dehydrogenase 133 U/L (81-234) 06/27/20 07:51 Total Protein 5.9 g/dL (6.4-8.2) L 06/26/20 07:53 Albumin 2.0 g/dL (3.4-5.0) L 06/26/20 07:53 Urine Color Yellow (Yellow) 06/25/20 19:44 Urine Clarity Sl cloudy (Clear) 06/25/20 19:44 Urine pH 6.5 (5-8) 06/25/20 19:44 Ur Specific [place] 1.015 (1.005-1.025) 06/25/20 19:44 Urine Protein Negative mg/dL (Negative) 06/25/20 19:44 Urine Ketones Negative mg/dL (Negative) 06/25/20 19:44 Urine Blood Trace-intact (Negative) H 06/25/20 19:44 Urine Nitrite Positive (Negative) H 06/25/20 19:44 Urine Bilirubin Negative (Negative) 06/25/20 19:44 Urine Urobilinogen 0.2 EU/dL (Up TO 0.2) 06/25/20 19:44 Ur Leukocyte Esterase Large (Negative) H 06/25/20 19:44 Urine RBC 0-2 HPF (0-2) 06/25/20 19:44 Urine WBC >50 HPF (0-5) H 06/25/20 19:44 Ur Epithelial Cells Rare HPF (Negative) 06/25/20 19:44 Urine Crystals Negative HPF (Negative) 06/25/20 19:44 Urine Bacteria Many HPF (Negative) 06/25/20 19:44 Urine Casts Negative LPF (Negative) 06/25/20 19:44 Urine Mucus Negative (Negative) 06/25/20 19:44 Ur Culture Indicated? Yes 06/25/20 19:44 Urine Glucose Negative mg/dL (Negative) 06/25/20 19:44 COVID-19 PCR Negative (Negative) 06/25/20 22:15 Nasopharyn COVID-19 PCR Not Applicable 06/25/20 22:15 Ref Test Perform Site [facility] 06/25/20 22:15
[2020-06-28] MEDS: Loratidine 10 MG TAB PO (13:25)
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
[2020-06-28] MEDS: cefTRIAXone 1 GM/50 ML BAG IVPB (20:37)
[2020-06-29] MEDS: metroNIDAZOLE 500 MG/100 ML BAG 100 MG IVPB ×4 (04:05→22:16)
[2020-06-29 08:07] LABS: Anion Gap 8.7 mmol/L (3-11); BUN 8 mg/dL (7-18); CO2 20.3 mmol/L (21.0-32.0); CREATININE 0.66 mg/dL (0.55-1.02); Calcium 8.3 mg/dL (8.5-10.1); Chloride 113 mmol/L (98-107); Glucose 106 mg/dL (74-106); Potassium 4.3 mmol/L (3.5-5.1); Sodium 142 mmol/L (136-145)
[2020-06-29] MEDS: Psyllium PKT 1 EACH PO ×2 (08:28→20:42)
[2020-06-29] MEDS: Nystatin 500000 UNITS/5 ML SUSP 5ML CUP PO ×3 (08:28→20:40)
[2020-06-29] MEDS: Potassium Chloride Liquid 20 MEQ PKT PO ×2 (08:28→20:42)
[2020-06-29] MEDS: Apixaban 5 MG TAB PO ×2 (08:29→20:42)
[2020-06-29] MEDS: Metoprolol CR 25 MG TABCR 12.5 MG PO ×2 (08:29→20:40)
[2020-06-29] MEDS: Metoclopramide 10 MG TAB 5 MG PO ×2 (08:29→20:41)
[2020-06-29] MEDS: Magnesium Gluconate 500 MG TAB PO (08:29)
[2020-06-29] MEDS: Ferrous Sulfate 325 MG TAB PO (08:29)
[2020-06-29] MEDS: Loratidine 10 MG TAB PO (08:29)
[2020-06-29 08:30] VITALS: BP 143/79; PULSE 80; RESP 18; TEMP 36.6; O2SAT 97
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
--- NOTE | 2020-06-29 14:19 | W.PALPGNOTE ---
Date of service: 06/29/20 Time of Service: 13:20 Assessment and Plan Assessment and plan (1) COPD (chronic obstructive pulmonary disease): Status: Chronic Qualifiers: COPD type: unspecified COPD Qualified Code(s): J44.9 - Chronic obstructive pulmonary disease, unspecified (2) C. difficile diarrhea: Status: Acute (3) Palliative care patient: Status: Acute Assessment and plan: She is doing very well on swing bed. She is making her needs known better regarding CODE STATUS etc. The plan is for her to go to a nearby [place] health care facility so that she can get the care she needs. Care management is working on this. I will continue to follow her as outpatient This document was created by [employer] software. Content was screened for misspellings, grammatical mistakes, etc. I apologize for any problems, but please contact me for further clarification if needed. Subjective Subjective Interval history since last seen: Lisa feels that she is doing better. Her diarrhea has resolved and she is having a daily bowel movement. She wants to go to the [facility] but there is some problems with getting her there because of her trach care. She knows her family cannot handle her Exam Narrative Exam Narrative: She is smiling and conversant. Her heart is rate controlled. Her lungs are clear. Her abdomen is soft nontender. Please see nursing notes for bowel movements. Objective Objective Clinical Data: Abnormal lab results 06/29/20 Range/Units 06:20 Chloride 113 H (98-107) mmol/L Carbon Dioxide 20.3 L (21.0-32.0) mmol/L Calcium 8.3 L (8.5-10.1) mg/dL Vital Signs Temperature 97.9 F 06/29/20 08:30 Temperature Source Tympanic 06/29/20 08:30 Pulse 80 06/29/20 08:30 Pulse Rhythm Regular 06/29/20 08:50 Respiratory Rate 18 06/29/20 08:30 Respiratory Effort Non-Labored 06/29/20 08:50 Respiratory Depth Normal 06/29/20 08:50 Respiratory Pattern Normal 06/29/20 08:50 Blood Pressure 143/79 H 06/29/20 08:30 Blood Pressure Position Supine 06/25/20 17:48 Pulse Oximetry 97 06/29/20 08:30 Oxygen Delivery Method Room Air 06/29/20 08:30 Oxygen Flow Rate 0 06/29/20 08:30 Fraction of Inspired Oxygen (FIO2) 21 06/28/20 23:25 Pain Level 0 06/29/20 08:30 Comment 06/28/20 00:22 Intake & Output 06/28/20 06/29/20 06/29/20 23:59 11:59 23:59 Intake Total 723.667 / 1577.750 400 / 640 240 / 640 Balance 723.667 / 1577.750 400 / 640 240 / 640 Weight 166 lb 14.239 oz Intake: IV 723.667 / 1097.750 100 / 100 Oral 300 / 540 240 / 540 Other: Urine Color Yellow Urine Appearance Clear Comment incontinent Stool Occult Blood Negative Stool Size Moderate Small Large Stool Characteristics Liquid Soft Soft Brown Brown Mucoid Brown Voiding Methods Diaper Diaper Incontinent Incontinent Laboratory Results WBC 7.27 10^3/uL (4.4-10.8) 06/27/20 07:51 RBC 3.25 10^6/uL (3.93-5.22) L 06/27/20 07:51 Hgb 9.7 g/dL (11.2-15.7) L 06/27/20 07:51 Hct 30.7 % (36.0-46.0) L 06/27/20 07:51 MCV 94.5 fL (80-95) 06/27/20 07:51 MCH 29.8 pg (27.0-33.0) 06/27/20 07:51 MCHC 31.6 % (32.0-36.0) L 06/27/20 07:51 RDW 15.0 % (11.7-14.6) H 06/27/20 07:51 Plt Count 278 10^3/uL (130-400) 06/27/20 07:51 MPV 10.0 fL (8.0-11.0) 06/27/20 07:51 Reticulocyte % (Auto) 1.3 % (0.5-2.4) 06/27/20 07:51 Immature Gran % 0.4 06/27/20 07:51 Neutrophils % 70.1 06/27/20 07:51 Band Neutrophils % 2 06/25/20 18:00 Lymphocytes % 20.4 06/27/20 07:51 Monocytes % 7.0 06/27/20 07:51 Eosinophils % 1.7 06/27/20 07:51 Basophils % 0.4 06/27/20 07:51 Nucleated RBC % 0 % 06/27/20 07:51 Absolute Neutrophils 5.10 10^3/uL (1.2-6.7) 06/27/20 07:51 Absolute Lymphocytes 1.48 10^3/uL (1.2-3.4) 06/27/20 07:51 Absolute Monocytes 0.51 10^3/uL (0.1-0.8) 06/27/20 07:51 Absolute Eosinophils 0.12 10^3/uL (0.0-0.7) 06/27/20 07:51 Absolute Basophils 0.03 10^3/uL (0.0-0.2) 06/27/20 07:51 RBC Morphology Normal 06/25/20 18:00 PT 11.9 sec (9.3-11.0) H 06/25/20 18:55 INR 1.2 (0.9-1.1) H 06/25/20 18:55 APTT 25.2 sec (21.0-31.4) 06/25/20 18:55 Sodium 142 mmol/L (136-145) 06/29/20 06:20 Potassium 4.3 mmol/L (3.5-5.1) 06/29/20 06:20 Chloride 113 mmol/L (98-107) H 06/29/20 06:20 Carbon Dioxide 20.3 mmol/L (21.0-32.0) L 06/29/20 06:20 Anion Gap 8.7 mmol/L (3-11) 06/29/20 06:20 BUN 8 mg/dL (7-18) 06/29/20 06:20 Creatinine 0.66 mg/dL (0.55-1.02) 06/29/20 06:20 Estimated GFR/1.73 m2 >= 60.00 (mL/min/1.73m2) 06/29/20 06:20 Glucose 106 mg/dL (74-106) 06/29/20 06:20 Calcium 8.3 mg/dL (8.5-10.1) L 06/29/20 06:20 Magnesium 2.2 mg/dL (1.8-2.4) 06/27/20 07:51 Iron 54 ug/dL (50-170) 06/27/20 07:51 TIBC 165 ug/dL (250-450) L 06/27/20 07:51 Transferrin % Sat 33 % (15-50) 06/27/20 07:51 Total Bilirubin 0.3 mg/dL (0.2-1.0) 06/26/20 07:53 AST 15 U/L (15-37) 06/26/20 07:53 ALT 12 U/L (14-59) L 06/26/20 07:53 Alkaline Phosphatase 67 U/L (46-116) 06/26/20 07:53 Lactate Dehydrogenase 133 U/L (81-234) 06/27/20 07:51 Total Protein 5.9 g/dL (6.4-8.2) L 06/26/20 07:53 Albumin 2.0 g/dL (3.4-5.0) L 06/26/20 07:53 Urine Color Yellow (Yellow) 06/25/20 19:44 Urine Clarity Sl cloudy (Clear) 06/25/20 19:44 Urine pH 6.5 (5-8) 06/25/20 19:44 Ur Specific [place] 1.015 (1.005-1.025) 06/25/20 19:44 Urine Protein Negative mg/dL (Negative) 06/25/20 19:44 Urine Ketones Negative mg/dL (Negative) 06/25/20 19:44 Urine Blood Trace-intact (Negative) H 06/25/20 19:44 Urine Nitrite Positive (Negative) H 06/25/20 19:44 Urine Bilirubin Negative (Negative) 06/25/20 19:44 Urine Urobilinogen 0.2 EU/dL (Up TO 0.2) 06/25/20 19:44 Ur Leukocyte Esterase Large (Negative) H 06/25/20 19:44 Urine RBC 0-2 HPF (0-2) 06/25/20 19:44 Urine WBC >50 HPF (0-5) H 06/25/20 19:44 Ur Epithelial Cells Rare HPF (Negative) 06/25/20 19:44 Urine Crystals Negative HPF (Negative) 06/25/20 19:44 Urine Bacteria Many HPF (Negative) 06/25/20 19:44 Urine Casts Negative LPF (Negative) 06/25/20 19:44 Urine Mucus Negative (Negative) 06/25/20 19:44 Ur Culture Indicated? Yes 06/25/20 19:44 Urine Glucose Negative mg/dL (Negative) 06/25/20 19:44 COVID-19 PCR Negative (Negative) 06/25/20 22:15 Nasopharyn COVID-19 PCR Not Applicable 06/25/20 22:15 Ref Test Perform Site [facility] lab 06/25/20 22:15
[2020-06-29 15:30] VITALS: BP 109/64; PULSE 76; RESP 18; TEMP 36.7; O2SAT 98
--- NOTE | 2020-06-29 15:53 | CMPROGNOTE_ITS ---
- If Service Date Differs Date of service: 06/29/20 Time of Service: 15:54 Care Management Progress Note S/O: Lisa is requesting the [facility] and wants to be discharged as soon as possible. She does not want to return home. She states she also does not want to stay at the hospital. CM contact [facility] trying to find an [employer] for the [employer]. Daughter will not send her current system to the [employer] as she is still paying for it. CM will reach out to [facility] to see if there is a funding source to obtain one for the [employer]. Anticipate a bed offer from the [facility], length of stay to be determined planning on short term however Lisa is unsure if she ever wants to return home. She states she is tired of the arguing and feeling like a burden. Her son was into today and updated. CM has updated her provider and daughter Trini. A:Lisa is a 80 year old female admitted with UTI, general weakness and c-diff. P:Disposition to be determined. Possibility of SB1 while awaiting placement vs SNF. She does not want to return home. CM is awaiting official bed offer from the [facility]. CM did review plan with Reena case briefer through home health ([facility]). CM will continue to assess for discharge needs and coordinate safe disposition. Transportation to be determined.
[2020-06-29] MEDS: Normal Saline Flush 10 ML SYR IVP ×2 (15:58→20:42)
[2020-06-29] MEDS: Furosemide 40 MG TAB PO (16:05)
[2020-06-29 17:40] VITALS: PULSE 87; RESP 24; RESP 5; O2SAT 97
[2020-06-29] MEDS: Albuterol/Ipratropium 3 ML UPD VIAL IH ×2 (17:40→20:42)
[2020-06-29 17:49] VITALS: PULSE 85; RESP 20; RESP 5; O2SAT 99
[2020-06-29 20:35] VITALS: BP 108/62; PULSE 85; RESP 17; TEMP 36.6; O2SAT 98
[2020-06-29] MEDS: cefTRIAXone 1 GM/50 ML BAG IVPB (20:40)
[2020-06-30] MEDS: metroNIDAZOLE 500 MG/100 ML BAG 100 MG IVPB ×2 (04:00→09:50)
[2020-06-30 07:35] VITALS: PULSE 76; RESP 1; RESP 16; RESP 8; O2SAT 98
[2020-06-30] MEDS: Albuterol/Ipratropium 3 ML UPD VIAL IH ×2 (07:35→11:33)
[2020-06-30 07:40] VITALS: PULSE 82; RESP 1; RESP 18; RESP 8; O2SAT 99
[2020-06-30 07:41] VITALS: TEMP 34
[2020-06-30 07:41] LABS: Anion Gap 6.5 mmol/L (3-11); BUN 9 mg/dL (7-18); CO2 23.5 mmol/L (21.0-32.0); CREATININE 0.87 mg/dL (0.55-1.02); Calcium 8.5 mg/dL (8.5-10.1); Chloride 110 mmol/L (98-107); Glucose 116 mg/dL (74-106); Sodium 140 mmol/L (136-145)
[2020-06-30 07:48] VITALS: BP 105/66; PULSE 74; RESP 17; TEMP 36.4; O2SAT 99
[2020-06-30] MEDS: Furosemide 40 MG TAB PO (09:52)
[2020-06-30] MEDS: Psyllium PKT 1 EACH PO (09:52)
[2020-06-30] MEDS: Magnesium Gluconate 500 MG TAB PO (09:52)
[2020-06-30] MEDS: Nystatin 500000 UNITS/5 ML SUSP 5ML CUP PO ×2 (09:53→14:39)
[2020-06-30] MEDS: Metoprolol CR 25 MG TABCR 12.5 MG PO (09:53)
[2020-06-30] MEDS: Ferrous Sulfate 325 MG TAB PO (09:53)
[2020-06-30] MEDS: Potassium Chloride Liquid 20 MEQ PKT PO (09:53)
[2020-06-30] MEDS: Apixaban 5 MG TAB PO (09:53)
[2020-06-30] MEDS: Loratidine 10 MG TAB PO (09:53)
[2020-06-30] MEDS: Metoclopramide 10 MG TAB 5 MG PO (09:53)
[2020-06-30 11:33] VITALS: PULSE 74; RESP 1; RESP 16; RESP 8; O2SAT 99
[2020-06-30 11:34] VITALS: PULSE 80; RESP 1; RESP 18; RESP 8; O2SAT 99
--- NOTE | 2020-06-30 13:31 | PDOC.CMPRO ---
- If Service Date Differs Date of service: 06/30/20 Time of Service: 13:31 Care Management Progress Note S/O: Lisa will be discharged to the [facility] on Sunday. Today she will transition to SB1 for PT and OT. The [facility] will coordinate the [employer] through [facility], We will need a list of supplies and any additional information to the [facility] including teaching to the [facility] r/t to trach care. CM updated daughter Trini today and Abdulaziz was updated by primary nurse. A:Lisa is a 80 year old female admitted with UTI, general weakness and c-diff. P:Lisa will be discharged to the [facility] on Sunday, CM coordinating the teaching for trach care with RT and the [facility]. Lisa will transport via private car vs ambulance coordinated by [facility]. She will transition to SB1 today for PT and OT, CM contacted [facility] and obtained PA.
--- NOTE | 2020-06-30 13:42 | W.PM.DS.N ---
Date of service: 06/30/20 Time of Service: 13:42 DS: Diagnosis Discharge Diagnosis (1) C. 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 Her HASMUKH score was a 3 indicative of severe disease. Based on the severity of her recurrent C. difficile colitis she was started on IV metronidazole 500 mg IV every 8 hours along with oral vancomycin 500 mg every 6 hours. She will need a 10 to 14-day treatment course and because this is recurrent disease upon discharge from the hospital she should placed on a vancomycin taper. Patient will be admitted to the swing bed status here at [facility] pending admission to the [facility]. This will allow completion of her acute treatment with the high-dose vancomycin and Flagyl. Upon discharge the [facility] she will go on the vancomycin taper schedule starting with vancomycin 125 mg 4 times daily x14 days followed by 125 mg 3 times daily x7 days then 125 mg twice daily x 7 days followed by 125 mg every 24 hours x7 days followed by 125 mg every other day for 7 days. (2) Acute UTI: Status: Resolved Asessment and Plan: Patient's urine culture grew multiple gram-negative rods. Patient was treated with a 7-day course of Rocephin. No further treatment is indicated at this time. (3) Hypokalemia: Status: Resolved Asessment and Plan: Hypokalemia was corrected with both IV and enteral forms of potassium. She should remain on potassium supplementation with a repeat BMP in 3 to 5 days. (4) Hypomagnesemia: Status: Resolved Asessment and Plan: Patient's hypomagnesemia was corrected with both IV and enteral forms of magnesium. Repeat level should be obtained in 3 to 5 days. (5) Protein-calorie malnutrition, mild: Status: Chronic Asessment and Plan: Patient was treated with protein supplements between meals. She should remain on high-protein diet along with supplemental protein shakes. (6) Anemia of chronic disease: Status: Chronic Asessment and Plan: Patient remains on iron supplementation. CBC should be checked periodically. I would recommend a repeat CBC in 2 weeks and then in 1 month (7) DNR (do not resuscitate): Status: Chronic Asessment and Plan: Patient has completed a course form and has indicated to Dr. Sánchez that she does not want intubation or CPR or resuscitation in any form in the event of cardiopulmonary arrest. (8) Atrial fibrillation with controlled ventricular rate: Status: Chronic Asessment and Plan: Patient has paroxysmal atrial fibrillation for which she is anticoagulated with Eliquis and her rate is well controlled with metoprolol succinate. During this hospital stay her rhythm has been regular (9) Discharge planning issues: Status: Acute Asessment and Plan: Patient would like to enter into the [facility] however her discharge is being delayed while the [facility] obtains training and equipment to handle her tracheostomy care. Discharge Plan Disposition Patient Disposition: [facility] SWING BED LEVEL 1 Condition: Improving Discharge Details Chief Complaint: Nausea/Vomit/Diar Clinical Impression: C. difficile diarrhea, Acute UTI Reason For Visit: UTI,GENERAL WEAKNESS, FAILURE TO THRIVE,C DIFF Admit Date/Time: 06/25/20 20:36 Admit Provider: Jimbo Kidd Attending Provider: Jimbo Kidd Primary Care Provider: Caridad Sánchez ED Provider: Jimbo Lujan Hospital Course Hospital Course: Chief Complaint: nausea, vomiting, diarrhea, C. 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 Haydee Morrow d/t partial SBO which did not improve w/ conservative treatment and underwent laparotomy and partial small bowel resection of small portion of small bowel d/t ischemic bowel and lysis of adhesions. She developed C. difficile diarrhea during her admission and required TPN and iv Flagyl and enteral Vancomycin. Eventually her lela function improved and she was put on enteral feedings and Metamucil was given to help with the diarrhea. Patient had a follow up stool test for C. difficile on 06/01 d/t continued diarrhea and this came back negative. She was felt ready for discharge and was released on 06/01/2020. Her hospitalization was complicated by C. difficile diarrhea, anemia of chronic disease, oral thrush and a stage I decubitus ulcer and physical deconditioning. She was discharged home on another week of oral vancomycin along w/ metamucil and probiotics. The patient was brought to the ER by her family d/t concerns of recurrent nausea and vomiting and diarrhea and poor oral intake and an intolerance to tube feedings. A stool study earlier in the day was ordered by her physician, Dr. Sánchez for C. difficile and has come back positive for C. difficile toxin and antigen. Patient's workup in the ER included CBC (elevated WBC 17,000 with stable anemia, Hb 11 GM), potassium 3.2, normal BUN 9, creatinine 1.0, low albumin 2.8. UA with nitrities, large leukocyte esterace, >50 WBC/HPF, many bacteria w/ rare epithelial cells. Patient is being admitted for dehydration, hypokalemia, recurrent/ongoing C. difficile colitis, and malnutrition and failure to thrive. Patient was treated for UTI. Urine culture grew 3 different gram-negative rods which the laboratory never performed a sensitivity on because they felt it was likely contaminant. Nevertheless she was treated with Rocephin 1 g IV daily for 7 days. Blood cultures came back no growth. C. difficile study from June 25 was positive for antigen and toxin. Her C. difficile colitis was treated with IV Flagyl and oral vancomycin and her diarrhea was treated with Metamucil. After 2 or 3 days of treatment her diarrhea improved and she was no longer nauseated and her abdominal discomfort improved. Consultation was obtained with Dr. Caridad Sánchez from palliative medicine. See her note for details. Dr. Sánchez acknowledged that the patient's been very frail and although the patient hopes to return to living more independently she indicated that the patient may need alf placement because of her multiple needs which at times is exhausted her family's abilities to manage at home. While Lisa does not want to go against her children's wishes she has indicated both to Dr. Sánchez and myself that she would prefer to go to the [facility] rather than return home at this time. At the time of discharge the patient was eating well with no nausea or vomiting no dyspnea and no chest discomfort. Stools were more formed at this time. Patient has been accepted at the [facility] but will not be able to be transferred until Sunday, July 05, 2020 because of their need to get educated on her tracheostomy care and the need to order supplies to manage her tracheostomy care. Home Meds and New Rx's Prescriptions: New vancomycin 1,000 mg Recon Soln 500 mg PO Q6H Qty: 1 RF: 0 water for injection, sterile Solution 10 ml PO Q6H Qty: 1 RF: 0 water for irrigation, sterile Solution 20 ml PO Q6H Qty: 1 RF: 0 potassium chloride 20 mEq Packet 20 meq PO BID Qty: 1 RF: 0 Continued metoclopramide HCl [Reglan] 5 mg tablet 5 mg PO BID Qty: 180 RF: 4 ipratropium-albuterol 0.5 mg-3 mg(2.5 mg base)/3 mL solution for nebulization 3 ml IH QID PRN (Reason: wheezing. J44.9) Qty: 180 RF: 8 guaifenesin [Tussin Mucus-Chest Congestion] 100 mg/5 mL liquid 400 mg PO BID Qty: 1000 RF: 0 metoprolol succinate 25 mg tablet extended release 24 hr 12.5 mg PO BID Qty: 90 RF: 4 Eliquis 5 mg tablet 5 mg PO BID Qty: 180 RF: 12 hydrocodone-acetaminophen 5-325 mg tablet 1 tab PO Q6H MDD 4 tabs PRN (Reason: pain) Qty: 10 RF: 0 furosemide 40 mg tablet 40 mg PO DAILY RF: 0 nystatin 100,000 unit/mL Suspension 500,000 units PO TID Qty: 60 RF: 0 ferrous sulfate 325 mg (65 mg iron) Tablet 325 mg PO DAILY Qty: 90 RF: 0 Metamucil Sugar-Free (aspart) 3.4 gram/5.8 gram Powder 3.4 gm PO BID Qty: 283 RF: 0 Bio-K plus 50 billion cell Capsule,Delayed Release(Dr/Ec) 1 cap PO DAILY Qty: 90 RF: 0 Discontinued vancomycin 125 mg capsule 125 mg PO Q6H Qty: 28 RF: 0 potassium chloride 40 mEq/15 mL liquid 40 meq PO DAILY Qty: 473 RF: 0 Discharge Instructions Instructions: C Diff (Clostridium Difficile) Infection (DC) Activity:: Activity as Tolerated Equipment/Supplies:: No Equipment Needed Diet:: Normal Diet Discharge Orders Discharge Orders: Discharge Order (Routine); Ordered 06/30/20 Ordered By: Jimbo Kidd Other Ambulatory Orders: Basic Metabolic Panel (Routine) Timeframe: 3 Days Facility: [facility] - Location: Laboratory Ordered By: Jimbo Kidd Discharge Data Discharge Date/Time-TO BE ENTERED AT DEPARTURE: 06/30/20 14:52 DS: Summary Status at Discharge Functional status at discharge: uses cane/walker Overall status at discharge: patient is progressing back to baseline Mental Status: mental status grossly normal Speech and Movement: other Mood: congruent mood Affect: normal affect Exam Narrative Exam Narrative: Alert, oriented, answers questions through writing on her white board with very appropriate questions and answers. Lungs are congested with some coarse bilateral rhonchi Heart RRR. Abdomen is obese soft and nontender. Psych Mental Status: mental status grossly normal Speech and Movement: other Mood: congruent mood Affect: normal affect DS: Data Vitals/I&O Vitals and I&O: Vital Signs Temperature 36.4 C L 06/30/20 07:48 Temperature Source Temporal Artery Scan 06/30/20 07:48 Pulse 80 06/30/20 11:34 Pulse Rhythm Regular 06/29/20 20:15 Respiratory Rate 18 06/30/20 11:34 Respiratory Effort Non-Labored 06/29/20 20:15 Respiratory Depth Normal 06/29/20 20:15 Respiratory Pattern Normal 06/29/20 20:15 Blood Pressure 105/66 06/30/20 07:48 Blood Pressure Position Supine 06/25/20 17:48 Pulse Oximetry 99 06/30/20 11:34 Oxygen Delivery Method Hi Flow System 06/30/20 11:33 Oxygen Flow Rate 0 06/30/20 07:48 Fraction of Inspired Oxygen (FIO2) 21 06/30/20 11:33 Pain Level 0 06/30/20 07:48 Comment 06/28/20 00:22 Intake & Output 06/29/20 06/30/20 06/30/20 23:59 11:59 23:59 Intake Total 440 / 940 100 / 100 Output Total 200 / 200 Balance 240 / 740 100 / 100 Weight 74.4 kg Intake: IV 200 / 400 100 / 100 Oral 240 / 540 Output: Urine 200 / 200 Other: Urine Color Yellow Yellow Urine Appearance Clear Clear Urine Odor Normal None Comment Incontinent and went in the commode. incont Stool Occult Blood Negative Stool Size Moderate Stool Characteristics Soft Mucoid Brown Voiding Methods Bedside Commode Incontinent Data Completed and Pending Labs on day of discharge: Labs from last 24 hours 06/30/20 07:05 Sodium 140 Potassium 4.0 Chloride 110 H Carbon Dioxide 23.5 Anion Gap 6.5 BUN 9 Creatinine 0.87 Estimated GFR/1.73 m2 >= 60.00 Glucose 116 H Calcium 8.5 Preliminary micro results at discharge 06/25/20 14:23 Blood Culture - Preliminary Blood NO GROWTH 72 HOURS 06/25/20 14:05 Blood Culture - Preliminary Blood NO GROWTH 72 HOURS [facility] Medical History (Updated 06/30/20 @ 14:52 by Jimbo Kidd) Adynamic ileus (Resolved) Anemia due to blood loss, acute (Acute) Anxiety (Chronic) Atrial fibrillation with controlled ventricular rate (Chronic) Benign paroxysmal vertigo Benign paroxysmal vertigo, unspecified ear (Resolved) Cataract (Resolved) O.U 02/24/14; Dr. Martin left extraction 03/10/14; Dr. 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 L hip-mild acetabular spurring 2014 - severe arthritis at facet joints Lumbago Nausea and vomiting (Inactive) Neutrophilic leukocytosis (Resolved) Oral thrush (Resolved) Oral ulcer (Resolved) 12/07/16 Peripheral edema (Chronic 07/31/16) Peripheral venous insufficiency (Chronic 12/03/08) edema Pharyngoesophageal dysphagia (Inactive) Physical deconditioning (Acute) Pneumonia of right lower lobe due to infectious organism (Resolved) Polyp of colon (Resolved) colonoscopy of 01/09/11-multiple polyps at multiple locations. 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 Very hard to regulate and cannot afford alternatives. Understands the risks. Repeat again - PE. back on anticoagualtion Right vocal cord cancer (Inactive) Seizure (Resolved) ? 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 NEG ECHO 2000 Urinary incontinence (Chronic 11/10/14) Vaginal lesion (Resolved) 03/22/16 Venous insufficiency Visual disturbance (Resolved) etiology unclear per -exam of 03/14/11 Vitamin D deficiency Vitamin D deficiency (Chronic 03/11/09) Vulvovaginitis (Resolved) Surgical History Extraction of cataract 02/24/14; LEFT EYE 03/10/14; RIGHT EYE History of bilateral tubal ligation (Resolved) History of laryngectomy (Acute) Ligation of fallopian tube Status post gastrostomy (Acute) Status post tracheostomy (Acute) Family History Mother , 85 Vaginal cancer Father , 74 Heart disease COPD (chronic obstructive pulmonary disease) Sister , 63 Heart disease ASHD/CHF Lung cancer Maternal Grandmother Heart disease Paternal Grandmother Diabetes Son , 40 Substance abuse Heart disease Sister No problems noted. Sister No problems noted. Son RA (rheumatoid arthritis) Daughter No problems noted. Daughter No problems noted. Paternal Grandfather , 80 No problems noted. Social History Smoking/Tobacco Use Status: Former Tobacco Use Quit Date: 06/05/01 Second Hand Exposure: Yes Alcohol Intake: former Drug use: Never Substance use type: does not use Caregiver/Support person: No Household members: none Housing: house Do you need help understanding health information?: Rarely Pets and animals: No Sexually active: No Current gender identity: female What is your relationship status?: How often do you talk on the phone with friends or family?: decline to answer How often do you get together with friends or relatives?: once per week How often do you attend taoist or voodoo services?: decline to answer Do you belong to any clubs or organized social groups?: no Panel score (0-1 are the most socially isolated patients): 0 What type of physical activity do you participate in: decline to answer Duration: decline to answer Frequency: decline to answer Bethany/Rastafarian: Yazidism Special bethany needs: No Seatbelt use: always Helmet use: No Drive intox or ride w/intox utility driver: No Do you feel safe at home: Yes Do you feel safe in your relationship?: Yes
[2020-07-06 14:23] LABS: Misc Referral (VDH) See Comments
== END 2020-06-30 14:52 | disposition swing bed (61) | DRG 371 ==
LOC: ER 22:22 → MS 22:28
PROVIDERS: Admitting Provider Internal Medicine; Emergency Provider Physician Assistant; PCP Family Medicine; Visit Provider Internal Medicine
DX: A04.72 Enterocolitis due to Clostridium difficile, not specified as recurrent (principal); Q28.2 Arteriovenous malformation of cerebral vessels; N39.0 Urinary tract infection, site not specified; E44.1 Mild protein-calorie malnutrition; Z93.0 Tracheostomy status; Z93.1 Gastrostomy status; Z66 Do not resuscitate; Z86.73 Personal history of transient ischemic attack (TIA), and cerebral infarction without residual deficits; Z86.711 Personal history of pulmonary embolism; G40.909 Epilepsy, unspecified, not intractable, without status epilepticus; Z79.02 Long term (current) use of antithrombotics/antiplatelets; F32.9 Major depressive disorder, single episode, unspecified; I10 Essential (primary) hypertension; Z85.21 Personal history of malignant neoplasm of larynx; E78.5 Hyperlipidemia, unspecified; M54.5 Low back pain; Z87.891 Personal history of nicotine dependence; I87.2 Venous insufficiency (chronic) (peripheral); I65.29 Occlusion and stenosis of unspecified carotid artery; R32 Unspecified urinary incontinence; E55.9 Vitamin D deficiency, unspecified; E87.6 Hypokalemia; D50.9 Iron deficiency anemia, unspecified; I48.0 Paroxysmal atrial fibrillation
CPT/HCPCS: 36410; 36415; 80048; 80053; 87040; 87505; 96361; 96365; 99223; 99232; 99233; 99239; 99254; 99285; U0003; 74022; 81003; 81015; 83540; 83550; 83615; 83735; 84132; 85025; 85045; 85610; 85730; 87086; 94640; J0696; J3475; J3480; J3490; J7620

== ENCOUNTER 2020-06-30 14:53 | Inpatient (IN) | payer OTHER, MEDICAID, SELFPAY ==
--- NOTE | 2020-06-30 15:10 | HPE_ITS ---
Date of service: 06/30/20 Time of Service: 15:10 Assessment and Plan Assessment and plan (1) Colitis due to Clostridium difficile: Status: Acute Assessment and plan: Patient is to complete stool treatment with Flagyl and vancomycin at high doses. Flagyl is 500 mg every 8 hours which can be given either intravenously or orally. Vancomycin is 500 mg 4 times daily. Treatment is for 10 to 14 days after which she will go on a tapering dose of vancomycin starting with 125 mg 4 times daily for 10 days followed by 125 mg 3 times daily x7 days then 125 mg twice daily x7 days then 125 mg daily x7 days followed by 125 mg every 48 hours x7 days then 125 mg once every third day x7 days. The other option she could go on Fidaxomicin 200 mg twice daily for 10 days (2) Physical deconditioning: Status: Acute Assessment and plan: Patient to receive physical therapy and Occupational Therapy to improve her ADL performance as well as her transfers and gait. (3) Protein-calorie malnutrition, mild: Status: Chronic Assessment and plan: Patient receive protein supplementation with her meals. (4) Anemia of chronic disease: Status: Chronic Assessment and plan: Patient will remain on oral iron supplementation with monitoring of her CBC weekly for the next 2 weeks and then monthly thereafter (5) Atrial fibrillation with controlled ventricular rate: Status: Chronic Assessment and plan: Patient has history of paroxysmal atrial fibrillation but rhythm remained regular during hospital stay. We will continue her metoprolol dose and her apixaban. (6) COPD (chronic obstructive pulmonary disease): Status: Chronic Assessment and plan: Patient will be kept on her home inhaler treatments. Because of some recent coarse rhonchi I did put her on scheduled doses of DuoNeb. Qualifiers: COPD type: unspecified COPD Qualified Code(s): J44.9 - Chronic obstructive pulmonary disease, unspecified (7) Depressive disorder: Status: Chronic Assessment and plan: Patient refuses to take any antidepressant medications (8) Essential hypertension: Status: Chronic Assessment and plan: Blood pressures well controlled with her usual dose of furosemide and Toprol-XL History of Present Illness History of Present Illness Chief Complaint: Generalized weakness secondary to C. difficile colitis Narrative: Please see my admission H&P from June 25, 2020 for details. 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 with a small bowel obstruction for which she failed to respond to conservative treatment and ended up with a laparotomy and partial small bowel resection due to ischemic bowel. Her hospitalization was complicated by C. difficile infection for which she was treated acutely and discharged home on oral vancomycin. She now presented to the emergency department with dehydration secondary to diarrhea complicated by electrolyte disturbance including hypokalemia and hypomagnesemia secondary to recurrent C. difficile colitis. She was hospitalized from June 25 through June 30, 2020 and because of the severity of her C. difficile infection she was placed on IV metronidazole as well as oral vancomycin. Initially this vancomycin was given through her gastrostomy tube however at this point the patient is now eating and drinking well and not requiring IV fluids. Nevertheless she is still receiving IV metronidazole in addition to oral vancomycin based on guidelines in the [employer] antimicrobial guideline therapy due to the severity of her C. difficile infection. Patient should receive dual treatment for 10 to 14 days and then go on a tapering dose of vancomycin. Patient's diarrhea was treated with Metamucil which helped thicken her bowel movements up and she has been placed on probiotics. She requires swing bed status as she is still very weak and debilitated and needs physical and occupational therapy to improve her mobility and ADL performance. While it is hoped that she can eventually return home the patient would like to go to the [facility] for further therapy however discharged to the [facility] has been delayed while the nursing staff at the [facility] received training regarding the patient's tracheostomy care. The plan is for discharge to the [facility] for continued prison treatment including physical therapy and Occupational Therapy. Scheduled date of transfer is July 05, 2020. Review of Systems All systems reviewed & are unremarkable except as noted in HPI and below [facility] Medical History Adynamic ileus (Resolved) Anemia due to blood loss, acute (Acute) Anxiety (Chronic) Atrial fibrillation with controlled ventricular rate (Chronic) Benign paroxysmal vertigo Benign paroxysmal vertigo, unspecified ear (Resolved) Cataract (Resolved) O.U 02/24/14; Dr. Martin left extraction 03/10/14; Dr. 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 L hip-mild acetabular spurring 2014 - severe arthritis at facet joints Lumbago Nausea and vomiting (Inactive) Neutrophilic leukocytosis (Resolved) Oral thrush (Resolved) Oral ulcer (Resolved) 12/07/16 Peripheral edema (Chronic 07/31/16) Peripheral venous insufficiency (Chronic 12/03/08) edema Pharyngoesophageal dysphagia (Inactive) Physical deconditioning (Acute) Pneumonia of right lower lobe due to infectious organism (Resolved) Polyp of colon (Resolved) colonoscopy of 01/09/11-multiple polyps at multiple locations. 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 Very hard to regulate and cannot afford alternatives. Understands the risks. Repeat again - PE. back on anticoagualtion Right vocal cord cancer (Inactive) Seizure (Resolved) ? 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 NEG ECHO 2000 Urinary incontinence (Chronic 11/10/14) Vaginal lesion (Resolved) 03/22/16 Venous insufficiency Visual disturbance (Resolved) etiology unclear per -exam of 03/14/11 Vitamin D deficiency Vitamin D deficiency (Chronic 03/11/09) Vulvovaginitis (Resolved) Surgical History Extraction of cataract 02/24/14; LEFT EYE 03/10/14; RIGHT EYE History of bilateral tubal ligation (Resolved) History of laryngectomy (Acute) Ligation of fallopian tube Status post gastrostomy (Acute) Status post tracheostomy (Acute) Family History Mother , 85 Vaginal cancer Father , 74 Heart disease COPD (chronic obstructive pulmonary disease) Sister , 63 Heart disease ASHD/CHF Lung cancer Maternal Grandmother Heart disease Paternal Grandmother Diabetes Son , 40 Substance abuse Heart disease Sister No problems noted. Sister No problems noted. Son RA (rheumatoid arthritis) Daughter No problems noted. Daughter No problems noted. Paternal Grandfather , 80 No problems noted. Social History Smoking/Tobacco Use Status: Former Tobacco Use Quit Date: 06/05/01 Second Hand Exposure: Yes Alcohol Intake: former Drug use: Never Substance use type: does not use Caregiver/Support person: No Household members: none Housing: house Do you need help understanding health information?: Rarely Pets and animals: No Sexually active: No Current gender identity: female What is your relationship status?: How often do you talk on the phone with friends or family?: decline to answer How often do you get together with friends or relatives?: once per week How often do you attend zoroastrianism or jainism services?: decline to answer Do you belong to any clubs or organized social groups?: no Panel score (0-1 are the most socially isolated patients): 0 What type of physical activity do you participate in: decline to answer Duration: decline to answer Frequency: decline to answer Bethany/Amish: Anabaptism Special bethany needs: No Seatbelt use: always Helmet use: No Drive intox or ride w/intox residential recycle driver: No Do you feel safe at home: Yes Do you feel safe in your relationship?: Yes Meds Home Medications and Allergies Home Medications Medication Instructions Recorded Confirmed Type ipratropium 0.5 mg-albuterol 3 mg 3 ml IH QID PRN #180 ml 11/28/19 06/07/20 Rx (2.5 mg base)/3 mL nebulization soln guaifenesin 100 mg/5 mL oral liquid 400 mg PO BID #1000 ml 11/29/19 06/07/20 Rx metoprolol succinate 25 mg 12.5 mg PO BID #90 tab 12/17/19 06/07/20 Rx tablet,extended release 24 hr apixaban 5 mg tablet 5 mg PO BID #180 tab 12/24/19 06/07/20 Rx metoclopramide HCl 5 mg tablet 5 mg PO BID #180 tab 02/19/20 06/07/20 Rx furosemide 40 mg PO DAILY 05/13/20 06/07/20 History Bio-K plus 1 cap PO DAILY #90 cap 06/01/20 06/07/20 Rx Metamucil Sugar-Free (aspart) 3.4 gm PO BID #283 gm 06/01/20 06/07/20 Rx ferrous sulfate 325 mg PO DAILY #90 tab 06/01/20 06/07/20 Rx hydrocodone 5 mg-acetaminophen 325 1 tab PO Q6H PRN #10 tab MDD 4 tabs 06/01/20 06/07/20 Rx mg tablet nystatin 500,000 units PO TID #60 ml 06/01/20 06/07/20 Rx potassium chloride 20 meq PO BID #1 each 06/30/20 Rx vancomycin 500 mg PO Q6H #1 each 06/30/20 Rx water for injection, sterile 10 ml PO Q6H #1 ml 06/30/20 Rx water for irrigation, sterile 20 ml PO Q6H #1 ml 06/30/20 Rx Allergies Allergy/AdvReac Type Severity Reaction Status Date / Time atorvastatin AdvReac Intermediate pt does Unverified 06/07/20 12:41 not think she has an allergy to this med Exam Narrative Exam Narrative: Alert, oriented, answers questions through writing on her white board with very appropriate questions and answers. Lungs are congested with some coarse bilateral rhonchi Heart RRR. Abdomen is obese soft and nontender. Psych Mental Status: mental status grossly normal Speech and Movement: other Mood: congruent mood Affect: normal affect COVID-19 Screening Have you,or household,traveled outside [place] in last 14 days?: No
--- NOTE | 2020-06-30 15:12 | NT_ITS ---
Date of service: 06/30/20 Time of Service: 15:12 PT Notes Visit Reasons: C. DIFFICILE COLITIS Referral for extended stay weakness was received for this 80-year old female who converts from acute care level to swing bed level 1 as of today. Lisa refused the offer of skilled PT services stating that she was going home tomorrow and that she was okay with how she has been moving. She went on to say that for the past 5 days she has been going back and forth from her bed to the bathroom with no physical assist from nursing staff. Lisa was informed that the referral was sent to establish her mobility level and initiate PT skilling that will continue when she transfers to the SNF on Sunday. She responds by saying that she does not know about her staying here until Sunday. She elaborates that she has PT at home 3x/week and would want to wait until then to do anything. Dr. Kidd was updated of patient refusal. Deedee from care management was apprised as well who states that she will attempt to re-approach patient about reconsidering her decision. Will plan to attempt PT eval again as ordered as soon as LILLI Mark loops back with PT for any updates. Thank you for the opportunity to participate in the care of this patient. Valeria Reyes PT, DPT, CLT [facility] [place], [place]
--- NOTE | 2020-06-30 15:47 | PDOC.CMPRO ---
- If Service Date Differs Date of service: 06/30/20 Time of Service: 15:47 Care Management Progress Note S/O: Lisa is tearful this afternoon she is torn between going to the [facility] and going home today. She is now requesting to go home then go to the [facility] from there. If she is discharged to the [facility] it will be on Sunday. Today she will transition to [facility] for PT and OT. CM contacted her daughter's and son they do not have the caregivers in the home today, they will have everything set up for tomorrow in case she does go home. CM updated Trini,Jasmin, and Abdulaziz today. A:Lisa is a 80 year old female admitted with UTI, general weakness and c-diff. P:Lisa will be discharged to the [facility] on Sunday, vs home on , CM coordinating the teaching for trach care with RT and the [facility]. Lisa will transport via private car vs ambulance coordinated by CM. She will transition to [facility] today for PT and OT, CM contacted [facility] and obtained PA.
--- NOTE | 2020-06-30 15:57 | PHA.REVIEW ---
Pharmacy Admission Review - Admission Clinical Review (Last Reviewed 06/30/20 @ 15:18 by Jimbo Kidd) Physical deconditioning (Acute) Colitis due to Clostridium difficile (Acute) atorvastatin Adverse Reaction (Intermediate, Unverified 06/07/20 12:41) pt does not think she has an allergy to this med - Renal Dosing Medications needing adjustments: Reviewed - Anticoagulation DVT Prohphylaxis: Reviewed Therapeutic Anticoagulation: Reviewed Medications: Apixaban - Opiate Usage Evaluate Pain Scale/Pains Meds: Reviewed Scheduled Bowel Reg ordered if on Opiates?: Yes - IV to PO Switch IV Medications: Reviewed - Home Meds Home Med List reviewed: Reviewed
[2020-06-30 16:18] VITALS: PULSE 78; RESP 1; RESP 16; RESP 8; O2SAT 98
[2020-06-30] MEDS: Albuterol/Ipratropium 3 ML UPD VIAL IH ×2 (16:18→19:48)
[2020-06-30 16:19] VITALS: PULSE 82; RESP 1; RESP 16; RESP 8; O2SAT 99
--- NOTE | 2020-06-30 19:12 | NUR.NOTE ---
Nursing Note: Discharged to swing account @ [id number]
--- NOTE | 2020-06-30 19:13 | NUR.NOTE ---
Nursing Note: Admitted from acute account @ [id number]
[2020-06-30] MEDS: Metoprolol CR 25 MG TABCR 12.5 MG PO (19:44)
[2020-06-30] MEDS: Metoclopramide 10 MG TAB 5 MG PO (19:45)
[2020-06-30] MEDS: metroNIDAZOLE 500 MG TAB PO (19:45)
[2020-06-30] MEDS: Apixaban 5 MG TAB PO (19:46)
[2020-06-30] MEDS: Nystatin 500000 UNITS/5 ML SUSP 5ML CUP PO (19:48)
[2020-06-30] MEDS: Psyllium PKT 1 EACH PO (19:48)
[2020-06-30] MEDS: Potassium Chloride Liquid 20 MEQ PKT PO (19:53)
[2020-06-30 19:55] VITALS: BP 110/69; PULSE 101; RESP 20; TEMP 36.8; O2SAT 97
[2020-06-30 22:20] VITALS: TEMP 34
[2020-07-01] VITALS (11 sets, daily range): BP systolic 106–129; BP diastolic 67–72; PULSE 78–96; RESP 1–20; TEMP 34–36.7; O2SAT 92–100
[2020-07-01] MEDS: Albuterol/Ipratropium 3 ML UPD VIAL IH ×4 (07:48→19:50)
[2020-07-01] MEDS: Psyllium PKT 1 EACH PO ×2 (08:23→19:54)
[2020-07-01] MEDS: Potassium Chloride Liquid 20 MEQ PKT PO ×2 (08:23→19:50)
[2020-07-01] MEDS: Nystatin 500000 UNITS/5 ML SUSP 5ML CUP PO ×3 (08:23→19:50)
[2020-07-01] MEDS: Furosemide 40 MG TAB PO (08:24)
[2020-07-01] MEDS: metroNIDAZOLE 500 MG TAB PO ×3 (08:24→19:49)
[2020-07-01] MEDS: Ferrous Sulfate 325 MG TAB PO (08:24)
[2020-07-01] MEDS: Metoclopramide 10 MG TAB 5 MG PO ×2 (08:24→19:49)
[2020-07-01] MEDS: Loratidine 10 MG TAB PO (08:24)
[2020-07-01] MEDS: Apixaban 5 MG TAB PO ×2 (08:26→19:48)
--- NOTE | 2020-07-01 09:05 | OTIE_ITS ---
Occupational Therapy Notes Inpatient Occupational Therapy [facility] 1 Evaluation Date: 07/01/20 Referring Doctor:Jimbo Kidd MD OT Orders: Non-Urgent, Extended Stay-Weakness Precautions: Fall, Standard, DNR/DNI PATIENT PROFILE/ADMITTING DIAGNOSIS: Pt is a 80 year old female currently under [facility] bed 1 status with a dx of colitis d/t clostridium difficile, physical deconditioning, protein-calorie malnutrition, anemia chronic disease, A-fib with controlled ventricular rate, COPD, depression and HTN. She presented to the ER on 06/25/20 with cheif c/o nausea, vomiting and diarrhea. It was determined to have pt admitted. She was recently transitioned to [facility] 1 rehabilitation status on 06/30/20 with goal to transition to the [facility] on 07/05/20 vs. return home on 07/08/20. OT was consulted for assessment of pt's functional (I) in regard to her ADL/IADL routines for assessment of adaptive equipment, performance of her ADLs and the amount of (A) needed, as well as progression of functional activity tolerance. Past Medical History- Medical History Adynamic ileus (Resolved) Anemia due to blood loss, acute (Acute) Anxiety (Chronic) Atrial fibrillation with controlled ventricular rate (Chronic) Benign paroxysmal vertigo Benign paroxysmal vertigo, unspecified ear (Resolved) Cataract (Resolved) O.U 02/24/14; Dr. Martin left extraction 03/10/14; Dr. 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 L hip-mild acetabular spurring 2014 - severe arthritis at facet joints Lumbago Nausea and vomiting (Inactive) Neutrophilic leukocytosis (Resolved) Oral thrush (Resolved) Oral ulcer (Resolved) 12/07/16 Peripheral edema (Chronic 07/31/16) Peripheral venous insufficiency (Chronic 12/03/08) edema Pharyngoesophageal dysphagia (Inactive) Physical deconditioning (Acute) Pneumonia of right lower lobe due to infectious organism (Resolved) Polyp of colon (Resolved) colonoscopy of 01/09/11-multiple polyps at multiple locations. 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 Very hard to regulate and cannot afford alternatives. Understands the risks. Repeat again - PE. back on anticoagualtion Right vocal cord cancer (Inactive) Seizure (Resolved) ? 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 NEG ECHO 2000 Urinary incontinence (Chronic 11/10/14) Vaginal lesion (Resolved) 03/22/16 Venous insufficiency Visual disturbance (Resolved) etiology unclear per -exam of 03/14/11 Vitamin D deficiency Vitamin D deficiency (Chronic 03/11/09) Vulvovaginitis (Resolved) Surgical History Extraction of cataract 02/24/14; LEFT EYE 03/10/14; RIGHT EYE History of bilateral tubal ligation (Resolved) History of laryngectomy (Acute) Ligation of fallopian tube Status post gastrostomy (Acute) Status post tracheostomy (Acute) Social History/Home Situation: Lisa lives in her own home and her family provides supportive care. She has three children Jasmin, Trini and Abdulaziz who all provide support at home. Lisa was recently discharged from [facility] on 11/27/2019 status post trach after surgical removal of her thyroid and Larnx. She states that she is (I) at her baseline in terms of ADLs/IADLs and requires some (A) with set up/clean up at times. She has a walk in shower with a seat per pt report. She states that she did not need (A) but was provided (A) from her family as needed. She communicates currently with a white board which seems to be most efficient for her at this time and also will communicate with non verbal vocal communication. She utilizes a FWW at baseline for functional mobility. SUBJECTIVE: Pt was sitting in chair when OT arrived. She was agreeable to OT session and reports that she has spent over 100 days at [facility] and been hospitalized here multiple times since November. OBJECTIVE: General Observation: Pleasant and able to answer questions appropriately with use of white board and by mouthing words, no vocal/verbal communication. Tracheotomy in place, g-tube in abdomen. Mental Status: A&Ox3 Pain: no c/o pain ROM: RUE AROM WFL L UE AROM WFL STRENGTH: RUE Shoulder flexion 4-/5, bicep 3/5, tricep 3/5, deburring technician is symmetrical and weak LUE Shoulder flexion 4/5, bicep 3+/5, tricep 3/5, deburring technician is symmetrical and weak FUNCTIONAL MOBILITY/ADLS: Grooming- Seated in chair pt denies washing her hair reporting that they washed it 2 days ago. She is (I) with brushing her hair. BATHING sitting in chair with max (A) Set up/clean up (I) with washing face, (B) UE and abdomen with min vc for tubing on abdomen and being careful not to pull on tubes, (I) to (B) knees, max (A) below knees and pt denies (B) feet due to pain in (R) toe DRESSING Pt denies (B) socks at this time. She can reach in sitting position to her knees and this is similar to pts baseline when she was seen by this OT in November. BALANCE: Static sitting Normal Dynamic Sitting Good SPECIAL TESTS: Daily Activity Limitations Standardized Measure [facility] AM -PAC ?6 clicks? Daily Activity Inpatient Short Form: Raw score: 21 Standardized score: 44.27 CMS score: 32.79% INFORMED CONSENT/EDUCATION: Pt instructed in purpose of OT Consult and plan of care. ASSESSMENT: Patient is a 80-year-old female referred to occupational therapy services with diagnosis of SWG bed 1 status with a dx of colitis d/t clostridium difficile, physical deconditioning, protein-calorie malnutrition, anemia chronic disease, A-fib with controlled ventricular rate, COPD, depression and HTN. Patient presents with clinical signs and symptoms consistent with dx, as demonstrated by the following impairment level findings/ functional limitations: Decreased functional activity tolerance, decreased (I) in tracheostomy care limiting functional (I), decreased (B) LE dressing, decreased performance of (B) LE bathing, decreased standing ADLs. OT feels that pt would benefit from skilled OT services to increase her functional (I) in ADL/IADL routines as well as functional activity tolerance and improve her quality of life. AMPA score 21 Patient is assessed as a Moderate 32582 complexity based on the following: History: See above Examination: see above Presentation: evolving Decision Making: AMPAC score 21 GOALS Goals x1 week 1. Transfers with FWW (S) 2. Dressing sitting in chair (I) with UE/LE dressing 3. Bathing sitting in chair (I) with UE/ min (A) LE, pt will be able to wash face and (B) UE standing at sink 4. Toileting on toilet min (A) 5. Eating (I) PLAN OF CARE/TREATMENT PLAN: 1x/day, 5 days/ week x 1week Initiate Occupational Therapy Services for bathing, dressing, grooming, toileting, eating, transfer training. DISCHARGE RECOMMENDATIONS Based on pts current level of function OT recommends SNF vs. home with HH services. Pending plan for pt per care management report is either to return to the [facility] on Sunday vs. Return home with HH services on . TREATMENT TIME/MINUTES/CODES [id number], [id number], 20 minutes (08:45) [facility]
--- NOTE | 2020-07-01 10:57 | CM.SWINGPC ---
- If Service Date Differs Date of service: 07/01/20 Time of Service: 10:58 Swingbed Plan of Care Plan of care: SWING BED PROGRAM ACTIVITIES/DISCHARGE PLAN OF CARE ACTIVITIES PLAN Date:07/01/20 Identified Need:Individual activity Intervention/Plan: activity cart, television, phone in the room, family brought in activity books, reading, and magazines. Initials John DISCHARGE PLAN Date:07/01/20 Identified Need: Weakness related to prolonged illness and hospital stay Intervention/Plan:PT and OT Initials KH
--- NOTE | 2020-07-01 11:32 | PT.INIE ---
Date of service: 07/01/20 Time of Service: 10:45 PT Notes Visit Reasons: C. DIFFICILE COLITIS Date: 07/01/20 Referring Doctor:Jimbo Kidd MD OT Orders: Non-Urgent, Extended Stay-Weakness Precautions: Fall, Standard, DNR/DNI PATIENT PROFILE/ADMITTING DIAGNOSIS: Pt is a 80 year old female currently under [facility] [place] 1 status with a dx of colitis d/t clostridium difficile, physical deconditioning, protein-calorie malnutrition, anemia chronic disease, A-fib with controlled ventricular rate, COPD, depression and HTN. She presented to the ER on 06/25/20 with cheif c/o nausea, vomiting and diarrhea. It was determined to have pt admitted. She was recently transitioned to [facility] [place] bed 1 rehabilitation status on 06/30/20 with goal to transition to the [facility] on 07/05/20 vs. return home on 07/08/20. PT was consulted for assessment of pt's functional activity capabilities. Past Medical History- Medical History Adynamic ileus (Resolved) Anemia due to blood loss, acute (Acute) Anxiety (Chronic) Atrial fibrillation with controlled ventricular rate (Chronic) Benign paroxysmal vertigo Benign paroxysmal vertigo, unspecified ear (Resolved) Cataract (Resolved) O.U 02/24/14; Dr. Martin left extraction 03/10/14; Dr. 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 L hip-mild acetabular spurring 2015 - severe arthritis at facet joints Lumbago Nausea and vomiting (Inactive) Neutrophilic leukocytosis (Resolved) Oral thrush (Resolved) Oral ulcer (Resolved) 12/07/16 Peripheral edema (Chronic 07/31/16) Peripheral venous insufficiency (Chronic 12/03/08) edema Pharyngoesophageal dysphagia (Inactive) Physical deconditioning (Acute) Pneumonia of right lower lobe due to infectious organism (Resolved) Polyp of colon (Resolved) colonoscopy of 01/09/11-multiple polyps at multiple locations. 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 Very hard to regulate and cannot afford alternatives. Understands the risks. Repeat again - PE. back on anticoagualtion Right vocal cord cancer (Inactive) Seizure (Resolved) ? 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 NEG ECHO 2000 Urinary incontinence (Chronic 11/10/14) Vaginal lesion (Resolved) 03/22/16 Venous insufficiency Visual disturbance (Resolved) etiology unclear per -exam of 03/14/11 Vitamin D deficiency Vitamin D deficiency (Chronic 03/11/09) Vulvovaginitis (Resolved) Surgical History Extraction of cataract 02/24/14; LEFT EYE 03/10/14; RIGHT EYE History of bilateral tubal ligation (Resolved) History of laryngectomy (Acute) Ligation of fallopian tube Status post gastrostomy (Acute) Status post tracheostomy (Acute) Social History/Home Situation: Lisa lives in her own home and her family provides supportive care. She has three children Jasmin, Trini and Abdulaziz who all provide support at home. Lisa was recently discharged from [facility] on 11/27/2019 status post trach after surgical removal of her thyroid and Larnx. She states that she is (I) at her baseline in terms of ADLs/IADLs and requires some (A) with set up/clean up at times. She has a walk in shower with a seat per pt report. She states that she did not need (A) but was provided (A) from her family as needed. She communicates currently with a white board which seems to be most efficient for her at this time and also will communicate with non verbal vocal communication. She utilizes a FWW at baseline for functional mobility. SUBJECTIVE: Pt was sitting in chair when PT arrived, preparing to leave for an outpatient ENT apt with Dr. Bañuelos. She was agreeable to PT session. OBJECTIVE: General Observation: Pleasant and able to answer questions appropriately with use of white board and by mouthing words, no vocal/verbal communication. Tracheotomy in place, g-tube in abdomen. Mental Status: A&Ox3 Pain: no c/o pain ROM: RUE AROM WFL L UE AROM WFL B LE's: WNL STRENGTH: RUE Shoulder flexion 4-/5, bicep 4/5, tricep 4/5, cost and risk analysis manager is symmetrical and weak LUE Shoulder flexion 4/5, bicep 4/5, tricep 4/5, cost and risk analysis manager is symmetrical and weak B LE's grossly 4/5 FUNCTIONAL MOBILITY: Patient sit to stand at walker, and vice versa 40 feet ambulation RW, distant supervision WC to chair, and vice versa, distant supervision Gait: RW, steady, symmetrical stance time and LE movement pattern, distant supervision BALANCE: Static sitting Normal Dynamic sitting normal Static standing good at walker Dynamic standing Fair, fails to stage IV of Stage IV Balance test. SPECIAL TESTS: Daily Activity Limitations Standardized Measure [facility] AM -PAC ?6 clicks? Daily Activity Inpatient Short Form: Raw score: 21 CMS score: 32.79% INFORMED CONSENT/EDUCATION: Pt instructed in purpose of PT Consult and plan of care. ASSESSMENT: Patient is a 80-year-old female referred to physical therapy services with diagnosis of SWG bed 1 status with a dx of colitis d/t clostridium difficile, physical deconditioning, protein-calorie malnutrition, anemia chronic disease, A-fib with controlled ventricular rate, COPD, depression and HTN. Patient presents with clinical signs and symptoms consistent with dx, as demonstrated by decreased functional activity tolerance, and mild balance impairment. PT feels that pt would benefit from skilled PT services to increase her functional (I) and return to premorbid level of function, with hopes of returning home with caregiver and children supervision. Based on patient's presentation today, return home seems most appropriate. AMPAC score 21 Patient is assessed as a Moderate 55539 complexity based on the following: History: See above Examination: see above Presentation: evolving Decision Making: Easy, AMPAC score 21 GOALS Goals x1 week 1. Independent with use of RW for 100 feet ambulation 2. Independent with all sit to stand and vice versa transfers 3 Independent bed mobility 4. good balance with all dynamic ambulation 5. Independent with self maintenance HEP 6. Family demonstrating good supervision skills with patient's functional activity with ADLs Plan of Care/Treatment Plan: 1-2x/day, 7 days/week x 1 week. Plan of care has been reviewed with the MECHANICAL OPERATOR providing the service under Physical Therapy direction. Initiate Physical Therapy intervention for strengthening, bed mobility, transfers, gait, stairs, balance training, use of assistive device. DISCHARGE RECOMMENDATIONS Home with caregiver and family upon achievement of rehab goals. TREATMENT TIME/MINUTES/CODES 43105, 15 minutes, 10:45
[2020-07-01] MEDS: Metoprolol CR 25 MG TABCR 12.5 MG PO ×2 (13:27→19:48)
[2020-07-01] MEDS: Magnesium Gluconate 500 MG TAB PO (13:27)
--- NOTE | 2020-07-01 14:11 | PT.INTREAT ---
Date of service: 07/01/20 Time of Service: 13:45 PT Notes Visit Reasons: C. DIFFICILE COLITIS Inpatient Physical Therapy Treatment Note [facility] Date: 07/01/2020 SUBJECTIVE: Lisa offers no complaints to me today. OBJECTIVE: [] BED MOBILITY/TRANSFERS Sit-stand: S Stand-sit: S GAIT Assistive Device:FWW Weight bearing: FWB Assist:SBA Distance: 200' Deviation: wc to follow ASSESSMENT: tolerated session well. No c/o SOB or fatigue during ambulation. She was busy with RT changing out her trach, and receiving her nebulizer rx. PLAN: will continue to progress following PT POC. TREATMENT CODE/TIME: 20 min. [id number].
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
[2020-07-02] VITALS (10 sets, daily range): BP systolic 109–127; BP diastolic 50–76; PULSE 74–88; RESP 1–20; TEMP 34–36.8; O2SAT 93–100
[2020-07-02] MEDS: Nystatin 500000 UNITS/5 ML SUSP 5ML CUP PO ×3 (08:26→20:15)
[2020-07-02] MEDS: Metoclopramide 10 MG TAB 5 MG PO ×2 (08:27→20:13)
[2020-07-02] MEDS: Loratidine 10 MG TAB PO (08:27)
[2020-07-02] MEDS: Psyllium PKT 1 EACH PO ×2 (08:27→20:15)
[2020-07-02] MEDS: Potassium Chloride Liquid 20 MEQ PKT PO ×2 (08:27→20:15)
[2020-07-02] MEDS: Metoprolol CR 25 MG TABCR 12.5 MG PO ×2 (08:28→20:14)
[2020-07-02] MEDS: Apixaban 5 MG TAB PO ×2 (08:28→20:13)
[2020-07-02] MEDS: Furosemide 40 MG TAB PO (08:29)
[2020-07-02] MEDS: Ferrous Sulfate 325 MG TAB PO (08:29)
[2020-07-02] MEDS: metroNIDAZOLE 500 MG TAB PO ×3 (08:29→20:15)
--- NOTE | 2020-07-02 09:33 | OTTR_ITS ---
Date of service: 07/02/20 Time of Service: 09:05 Occupational Therapy Notes Occupational Therapy Inpatient Treatment Note Date: 07/02/20 PRECAUTIONS: Fall, Contact, DNR/DNI SUBJECTIVE: Pt was agreeable to OT session. She has no new complaints. OBJECTIVE: PAIN:no c/o pain FUNCTIONAL MOBILITY Sit-stand: (S) FWW Stand-sit: (S) FWW Bed-Chair: SBA, FWW Chair-bed: SBA, FWW BATHING: seated with max (A) set up/clean up Upper Body: (I) face, (B) UE, abdomen Lower Body: (B) LE to knees, max (A) below knees, max (A) venkatesh area DRESSING: Seated in chair Upper Extremity: Min (A) don and doffing hospital gown Lower Extremity: Max (A) don and doffing underwear GROOMING: NT TOILETING: Device: Toilet Assist: Max (A) toileting hygiene EATING: (I) with eating routine prior to OT session. ASSESSMENT/PLAN: Pt was demonstrating increased (I) with her bathing routine. She is able to perform them close to her baseline level of function at this time. She was concerned about her g-tube and OT notified RN for assessment. No c/o pain and was able to demonstrate with good functional activity tolerance but did note fatigue post session. TREATMENT CODES/TIME: [id number], 25 minutes (09:05) Licha Richardson OTR/L [facility]
[2020-07-02] MEDS: Magnesium Gluconate 500 MG TAB PO (10:49)
--- NOTE | 2020-07-02 11:26 | NUR.NOTE ---
Nursing Note: Patient is grossly incontinent of Bladder this morning. Care was given and vitamin A&D ointment applied
[2020-07-02] MEDS: Albuterol/Ipratropium 3 ML UPD VIAL IH ×2 (11:40→16:23)
[2020-07-02 13:53] LABS: Bilirubin Negative (Negative); Blood Negative (Negative); Clarity Clear (Clear); Glucose Negative (Negative); Ketones Negative (Negative); Leukocyte Esterase Negative (Negative); Nitrite Negative (Negative); Urobilinogen 0.2 EU/dL (Up TO 0.2); pH 6.5 (5-8)
--- NOTE | 2020-07-02 13:59 | PT.INTREAT ---
Date of service: 07/02/20 Time of Service: 14:00 PT Notes Visit Reasons: C. DIFFICILE COLITIS Inpatient Physical Therapy Treatment Note [facility] Date: 07/02/2020 SUBJECTIVE: Lisa states that she is going to the [facility] early next week. OBJECTIVE: [] BED MOBILITY/TRANSFERS Sit-stand: S Stand-sit: S GAIT Assistive Device:FWW Weight bearing:FWB Assist: SBA Distance: 300' in am and 300' in pm Deviation: wc to follow THEREX: global LE strength and stabilization. See flowsheet for details. ASSESSMENT: tolerated session well. She is fairly safe and independent with transfers. No c/o SOB or fatigue during either session today. PLAN: will continue to progress following PT POC. TREATMENT CODE/TIME: 15 min in am and 25 min in pm. [id number], [id number]
--- NOTE | 2020-07-02 14:03 | W.SURGCON ---
Date of service: 07/02/20 Time of Service: 14:03 History of Present Illness Narrative: pt request feeding tube change to low profile. on 09/09 she had a 20F tube placed. They had signif diff passing the endoscope. This was pre-surgery. The tube depth was 6cm. She has lost weight since this was placed. She is currently eating. Will measure/size for appropriate tube- will most likely need to order. Consults Consult date: 07/02/20 Requesting physician: Bhavani Castro [facility] Medical History Adynamic ileus (Resolved) Anemia due to blood loss, acute (Acute) Anxiety (Chronic) Atrial fibrillation with controlled ventricular rate (Chronic) Benign paroxysmal vertigo Benign paroxysmal vertigo, unspecified ear (Resolved) Cataract (Resolved) O.U 02/24/14; Dr. Martin left extraction 03/10/14; Dr. 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 L hip-mild acetabular spurring 2015 - severe arthritis at facet joints Lumbago Nausea and vomiting (Inactive) Neutrophilic leukocytosis (Resolved) Oral thrush (Resolved) Oral ulcer (Resolved) 12/07/16 Peripheral edema (Chronic 07/31/16) Peripheral venous insufficiency (Chronic 12/03/08) edema Pharyngoesophageal dysphagia (Inactive) Physical deconditioning (Acute) Pneumonia of right lower lobe due to infectious organism (Resolved) Polyp of colon (Resolved) colonoscopy of 01/09/11-multiple polyps at multiple locations. 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 Very hard to regulate and cannot afford alternatives. Understands the risks. Repeat again - PE. back on anticoagualtion Right vocal cord cancer (Inactive) Seizure (Resolved) ? 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 NEG ECHO 2000 Urinary incontinence (Chronic 11/10/14) Vaginal lesion (Resolved) 03/22/16 Venous insufficiency Visual disturbance (Resolved) etiology unclear per -exam of 03/14/11 Vitamin D deficiency Vitamin D deficiency (Chronic 03/11/09) Vulvovaginitis (Resolved) Surgical History Extraction of cataract 02/24/14; LEFT EYE 03/10/14; RIGHT EYE History of bilateral tubal ligation (Resolved) History of laryngectomy (Acute) Ligation of fallopian tube Status post gastrostomy (Acute) Status post tracheostomy (Acute) Family History Mother , 85 Vaginal cancer Father , 74 Heart disease COPD (chronic obstructive pulmonary disease) Sister , 63 Heart disease ASHD/CHF Lung cancer Maternal Grandmother Heart disease Paternal Grandmother Diabetes Son , 40 Substance abuse Heart disease Sister No problems noted. Sister No problems noted. Son RA (rheumatoid arthritis) Daughter No problems noted. Daughter No problems noted. Paternal Grandfather , 80 No problems noted. Social History Smoking/Tobacco Use Status: Former Tobacco Use Quit Date: 06/05/01 Second Hand Exposure: Yes Alcohol Intake: former Drug use: Never Substance use type: does not use Caregiver/Support person: No Household members: none Housing: house Do you need help understanding health information?: Rarely Pets and animals: No Sexually active: No Current gender identity: female What is your relationship status?: How often do you talk on the phone with friends or family?: decline to answer How often do you get together with friends or relatives?: once per week How often do you attend tenriism or confucianist services?: decline to answer Do you belong to any clubs or organized social groups?: no Panel score (0-1 are the most socially isolated patients): 0 What type of physical activity do you participate in: decline to answer Duration: decline to answer Frequency: decline to answer Bethany/Buddhism: Restorationism Special bethany needs: No Seatbelt use: always Helmet use: No Drive intox or ride w/intox corrugated fastener driver: No Do you feel safe at home: Yes Do you feel safe in your relationship?: Yes Results Last Vital Signs Temp 36.6 C 07/02/20 07:51 Pulse 74 07/02/20 11:53 Resp 20 07/02/20 11:53 BP 123/74 07/02/20 07:51 Pulse Ox 100 07/02/20 11:53 Labs Labs: Laboratory Results - last 24 hr 07/02/20 13:40 Urine Color Yellow Urine Clarity Clear Urine pH 6.5 Ur Specific Ollie 1.020 Urine Protein Negative Urine Ketones Negative Urine Blood Negative Urine Nitrite Negative Urine Bilirubin Negative Urine Urobilinogen 0.2 Ur Leukocyte Esterase Negative Urine Glucose Negative
[2020-07-03 06:40] VITALS: BP 131/78; PULSE 82; RESP 18; TEMP 36.4; O2SAT 94
[2020-07-03 09:15] VITALS: BP 123/76; PULSE 82; RESP 16; O2SAT 97
--- NOTE | 2020-07-03 09:17 | PT.INTREAT ---
Date of service: 07/03/20 Time of Service: 08:45 PT Notes Visit Reasons: C. DIFFICILE COLITIS Inpatient Physical Therapy Treatment Note [facility] Date: 07/03/2020 SUBJECTIVE: Lisa offers no complaints to me today. OBJECTIVE: [] BED MOBILITY/TRANSFERS Sit-stand:S Stand-sit: S GAIT Assistive Device:FWW Weight bearing: FWB Assist: SBA Distance: 300' Deviation:wc to follow THEREX: global LE strengthening and functional mobility. See flowsheet for details. ASSESSMENT: tolerated session well. She noted some fatigue towards end of ambulation required 30 sec stand rest break. Continues to be safe and indpendent with her transfers. PLAN: continue PT POC TREATMENT CODE/TIME: 25 min. [id number], [id number].
[2020-07-03] MEDS: Nystatin 500000 UNITS/5 ML SUSP 5ML CUP PO ×3 (09:18→20:17)
[2020-07-03] MEDS: metroNIDAZOLE 500 MG TAB PO ×3 (09:18→20:15)
[2020-07-03] MEDS: Magnesium Gluconate 500 MG TAB PO (09:18)
[2020-07-03] MEDS: Apixaban 5 MG TAB PO ×2 (09:18→20:14)
[2020-07-03] MEDS: Loratidine 10 MG TAB PO (09:19)
[2020-07-03] MEDS: Ferrous Sulfate 325 MG TAB PO (09:19)
[2020-07-03] MEDS: Metoclopramide 10 MG TAB 5 MG PO ×2 (09:19→20:14)
[2020-07-03] MEDS: Potassium Chloride Liquid 20 MEQ PKT PO ×2 (09:19→20:15)
[2020-07-03] MEDS: Furosemide 40 MG TAB PO (09:19)
[2020-07-03] MEDS: Psyllium PKT 1 EACH PO ×2 (09:19→20:16)
[2020-07-03] MEDS: Metoprolol CR 25 MG TABCR 12.5 MG PO ×2 (09:20→20:15)
[2020-07-03 16:00] VITALS: BP 106/69; PULSE 71; RESP 18; TEMP 36.5; O2SAT 97
[2020-07-03 20:10] VITALS: BP 115/70; PULSE 73; RESP 18; TEMP 36.1; O2SAT 97
[2020-07-04 04:59] VITALS: BP 106/63; PULSE 78; RESP 17; TEMP 36.4; O2SAT 93
[2020-07-04 08:00] VITALS: BP 113/69; PULSE 71; RESP 16; TEMP 36.5; O2SAT 95
[2020-07-04] MEDS: Nystatin 500000 UNITS/5 ML SUSP 5ML CUP PO ×3 (08:06→20:45)
[2020-07-04] MEDS: Psyllium PKT 1 EACH PO (08:06)
[2020-07-04] MEDS: Ferrous Sulfate 325 MG TAB PO (08:06)
[2020-07-04] MEDS: metroNIDAZOLE 500 MG TAB PO ×3 (08:06→20:45)
[2020-07-04] MEDS: Potassium Chloride Liquid 20 MEQ PKT PO ×2 (08:06→20:46)
[2020-07-04] MEDS: Apixaban 5 MG TAB PO ×2 (08:07→20:46)
[2020-07-04] MEDS: Loratidine 10 MG TAB PO (08:07)
[2020-07-04] MEDS: Metoclopramide 10 MG TAB 5 MG PO ×2 (08:08→20:47)
[2020-07-04] MEDS: Metoprolol CR 25 MG TABCR 12.5 MG PO ×2 (08:09→20:45)
[2020-07-04] MEDS: Magnesium Gluconate 500 MG TAB PO (10:37)
--- NOTE | 2020-07-04 11:46 | PT.INTREAT ---
Date of service: 07/04/20 Time of Service: 09:30 PT Notes Visit Reasons: C. DIFFICILE COLITIS Inpatient Physical Therapy Treatment Note [facility] Date: 07/04/2020 SUBJECTIVE:Lisa states that she is doing well. She offers no complaints to me today. OBJECTIVE: [] BED MOBILITY/TRANSFERS Sit-stand: S Stand-sit: S GAIT Assistive Device:FWW Weight bearing: FWB Assist: SBA Distance: 300' Deviation: wc to follow THEREX: global LE strengthening routine, see flowsheet for details. ASSESSMENT: Lisa does very well. Consistently safe and independent with transfers. No LOB with ambulation. PLAN:continue POC TREATMENT CODE/TIME: 25 min. [id number], [id number]
[2020-07-04 19:15] VITALS: BP 126/78; PULSE 77; RESP 18; TEMP 36.3; O2SAT 97
[2020-07-05 07:19] VITALS: BP 121/69; PULSE 73; RESP 18; TEMP 36.7; O2SAT 94
[2020-07-05 08:31] LABS: COVID-19 RT-PCR UVMMC Result Negative
--- NOTE | 2020-07-05 08:46 | OT.INNT ---
Date of service: 07/05/20 Time of Service: 08:40 Occupational Therapy Notes 07/05/20 OT attempted to see pt who reports that she was washed up with [employer] prior to OT arrival. She states that she is leaving today but is not sure whether that is to home or to the [facility]. She denies performance of brushing teeth, she does ask for a washcloth to wash her face and was able to perform this (I). Licha Richardson, OTR/L [facility]
[2020-07-05] MEDS: Potassium Chloride Liquid 20 MEQ PKT PO (08:57)
[2020-07-05] MEDS: Metoprolol CR 25 MG TABCR 12.5 MG PO (08:57)
[2020-07-05] MEDS: Nystatin 500000 UNITS/5 ML SUSP 5ML CUP PO ×2 (08:57→14:47)
[2020-07-05] MEDS: Loratidine 10 MG TAB PO (08:57)
[2020-07-05] MEDS: Psyllium PKT 1 EACH PO (08:57)
[2020-07-05] MEDS: metroNIDAZOLE 500 MG TAB PO ×2 (08:58→14:47)
[2020-07-05] MEDS: Ferrous Sulfate 325 MG TAB PO (08:58)
[2020-07-05] MEDS: Furosemide 40 MG TAB PO (08:59)
[2020-07-05] MEDS: Metoclopramide 10 MG TAB 5 MG PO (08:59)
[2020-07-05] MEDS: Apixaban 5 MG TAB PO (08:59)
[2020-07-05] MEDS: Magnesium Gluconate 500 MG TAB PO (09:32)
[2020-07-05 09:37] VITALS: TEMP 34
--- NOTE | 2020-07-05 12:38 | DSE_ITS ---
Date of service: 07/05/20 Time of Service: 12:38 DS: Diagnosis Discharge Diagnosis (1) Colitis due to Clostridium difficile: Status: Acute (2) Protein-calorie malnutrition, mild: Status: Chronic (3) Anemia of chronic disease: Status: Chronic (4) Atrial fibrillation with controlled ventricular rate: Status: Chronic (5) COPD (chronic obstructive pulmonary disease): Status: Chronic (6) Depressive disorder: Status: Chronic (7) Essential hypertension: Status: Chronic Discharge Plan Disposition Patient Disposition: HOME W/HOME HEALTH SERVICE Condition: Improving Discharge Details Reason For Visit: C. 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 difficile colitis. She was hospitalized acutely from June 25 through June 30, 2020 and because of the severity of her C. difficile infection she was placed on IV metronidazole as well as oral vancomycin. This vancomycin has been given through her gastrostomy tube as she was having difficulty/concern with swallowing capsules. She ultimately had a swallow evaluation and was indeed able to swallow capsule with food. recommendations for outpatient speech therapy at discharge. She receive dual treatment for 10 days and then will go on a tape dose of vancomycin. Patient's diarrhea was treated with Metamucil which helped thicken her bowel movements up and she has been placed on probiotics. She had a stay on swing bed status as she was still very weak and debilitated and needs physical and occupational therapy to improve her mobility and ADL performance. She has now met her inpatient rehab potential and would like to be discharge to home. discharge plan discussed with Dr Castro who is in agreement. Home Meds and New Rx's Prescriptions: New vancomycin [Vancocin] 125 mg capsule 125 mg PO QID Qty: 84 RF: 0 Continued metoclopramide HCl [Reglan] 5 mg tablet 5 mg PO BID Qty: 180 RF: 4 ipratropium-albuterol 0.5 mg-3 mg(2.5 mg base)/3 mL solution for nebulization 3 ml IH QID PRN (Reason: wheezing. J44.9) Qty: 180 RF: 8 guaifenesin [Tussin Mucus-Chest Congestion] 100 mg/5 mL liquid 400 mg PO BID Qty: 1000 RF: 0 metoprolol succinate 25 mg tablet extended release 24 hr 12.5 mg PO BID Qty: 90 RF: 4 Eliquis 5 mg tablet 5 mg PO BID Qty: 180 RF: 12 hydrocodone-acetaminophen 5-325 mg tablet 1 tab PO Q6H MDD 4 tabs PRN (Reason: pain) Qty: 10 RF: 0 furosemide 40 mg tablet 40 mg PO DAILY RF: 0 nystatin 100,000 unit/mL Suspension 500,000 units PO TID Qty: 60 RF: 0 ferrous sulfate 325 mg (65 mg iron) Tablet 325 mg PO DAILY Qty: 90 RF: 0 Metamucil Sugar-Free (aspart) 3.4 gram/5.8 gram Powder 3.4 gm PO BID Qty: 283 RF: 0 Bio-K plus 50 billion cell Capsule,Delayed Release(Dr/Ec) 1 cap PO DAILY Qty: 90 RF: 0 water for injection, sterile Solution 10 ml PO Q6H Qty: 1 RF: 0 water for irrigation, sterile Solution 20 ml PO Q6H Qty: 1 RF: 0 potassium chloride 20 mEq Packet 20 meq PO BID Qty: 1 RF: 0 Discontinued vancomycin 1,000 mg Recon Soln 500 mg PO Q6H Qty: 1 RF: 0 Discharge Instructions Instructions: C Diff (Clostridium Difficile) Infection (DC) Additional Instructions: resume usual medications. continue vancomycin oral capsule with food with taper as directed: vancomycin 125 mg 4 times daily for 2 weeks, then vancomycin 125 mg 2 times daily for 1 week then vancomycin 125 mg daily for one week then vancomycin 125 mg every other day for 2 weeks, then stop. Speech therapy consultation outpatient routine evaluation and treatment. Referrals: Caridad Sánchez [place], [place] [Primary Care Provider] - Activity:: Activity as Tolerated Equipment/Supplies:: No Equipment Needed Diet:: Other Discharge Orders Discharge Orders: Discharge Order (Routine); Ordered 07/05/20 Ordered By: Gisell Aguilera DS: Summary Status at Discharge Functional status at discharge: uses cane/walker Overall status at discharge: patient is progressing back to baseline Mental Status: mental status grossly normal Speech and Movement: mute Mood: congruent mood Affect: normal affect Exam Narrative Exam Narrative: Alert, oriented, answers questions writing on white board appropriately. pink warm dry and in no acute distress neck: trach intact respirations are even and unlabored. coarse scattered breath sounds and moist cough Heart RRR. musculoskeletal: moves all extremities Abdomen is obese soft and non-tender Psych: appropriate Mental Status: mental status grossly normal Mood: congruent mood Affect: normal affect Psych Mental Status: mental status grossly normal Speech and Movement: mute Mood: congruent mood Affect: normal affect DS: Data Vitals/I&O Vitals and I&O: Vital Signs Temperature 36.7 C 07/05/20 07:19 Temperature Source Temporal Artery Scan 07/05/20 07:19 Pulse 73 07/05/20 07:19 Pulse Rhythm Regular 07/05/20 10:22 Respiratory Rate 18 07/05/20 07:19 Respiratory Effort Non-Labored 07/05/20 10:22 Respiratory Depth Normal 07/05/20 10:22 Respiratory Pattern Normal 07/05/20 10:22 Blood Pressure 121/69 07/05/20 07:19 Pulse Oximetry 94 L 07/05/20 07:19 Oxygen Delivery Method Trach Collar 07/05/20 07:19 Oxygen Flow Rate 30 07/05/20 09:37 Fraction of Inspired Oxygen (FIO2) 21 07/05/20 09:37 Pain Level 0 07/05/20 07:19 Intake & Output 07/04/20 07/05/20 07/05/20 23:59 11:59 23:59 Intake Total 240 / 1000 Output Total 200 / 650 Balance 40 / 350 Weight 74.1 kg Intake: Oral 240 / 970 Output: Urine 200 / 650 Other: Urine Color Yellow Urine Appearance Clear Urine Odor Normal Stool Size Moderate Stool Characteristics Soft Mucoid Brown Voiding Methods Bedside Commode Diaper Incontinent Data Completed and Pending Labs on day of discharge: Labs from last 24 hours 07/04/20 07/04/20 05:10 05:10 COVID-19 PCR Negative Cancelled Nasopharyn COVID-19 PCR Not Applicable Cancelled Ref Test Perform Site [place] [facility] Cancelled [facility] Medical History Adynamic ileus (Resolved) Anemia due to blood loss, acute (Acute) Anxiety (Chronic) Atrial fibrillation with controlled ventricular rate (Chronic) Benign paroxysmal vertigo Benign paroxysmal vertigo, unspecified ear (Resolved) Cataract (Resolved) O.U 02/24/14; Dr. Martin left extraction 03/10/14; Dr. 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 L hip-mild acetabular spurring 2015 - severe arthritis at facet joints Lumbago Nausea and vomiting (Inactive) Neutrophilic leukocytosis (Resolved) Oral thrush (Resolved) Oral ulcer (Resolved) 12/07/16 Peripheral edema (Chronic 07/31/16) Peripheral venous insufficiency (Chronic 12/03/08) edema Pharyngoesophageal dysphagia (Inactive) Physical deconditioning (Acute) Pneumonia of right lower lobe due to infectious organism (Resolved) Polyp of colon (Resolved) colonoscopy of 01/09/11-multiple polyps at multiple locations. 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 Very hard to regulate and cannot afford alternatives. Understands the risks. Repeat again - PE. back on anticoagualtion Right vocal cord cancer (Inactive) Seizure (Resolved) ? 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 NEG ECHO 2000 Urinary incontinence (Chronic 11/10/14) Vaginal lesion (Resolved) 03/22/16 Venous insufficiency Visual disturbance (Resolved) etiology unclear per -exam of 03/14/11 Vitamin D deficiency Vitamin D deficiency (Chronic 03/11/09) Vulvovaginitis (Resolved) Surgical History Extraction of cataract 02/24/14; LEFT EYE 03/10/14; RIGHT EYE History of bilateral tubal ligation (Resolved) History of laryngectomy (Acute) Ligation of fallopian tube Status post gastrostomy (Acute) Status post tracheostomy (Acute) Family History Mother , 85 Vaginal cancer Father , 74 Heart disease COPD (chronic obstructive pulmonary disease) Sister , 63 Heart disease ASHD/CHF Lung cancer Maternal Grandmother Heart disease Paternal Grandmother Diabetes Son , 40 Substance abuse Heart disease Sister No problems noted. Sister No problems noted. Son RA (rheumatoid arthritis) Daughter No problems noted. Daughter No problems noted. Paternal Grandfather , 80 No problems noted. Social History Smoking/Tobacco Use Status: Former Tobacco Use Quit Date: 06/05/01 Second Hand Exposure: Yes Alcohol Intake: former Drug use: Never Substance use type: does not use Caregiver/Support person: No Household members: none Housing: house Do you need help understanding health information?: Rarely Pets and animals: No Sexually active: No Current gender identity: female What is your relationship status?: How often do you talk on the phone with friends or family?: decline to answer How often do you get together with friends or relatives?: once per week How often do you attend buddhist or judaism services?: decline to answer Do you belong to any clubs or organized social groups?: no Panel score (0-1 are the most socially isolated patients): 0 What type of physical activity do you participate in: decline to answer Duration: decline to answer Frequency: decline to answer Bethany/Uatsdin: Taoist Special bethany needs: No Seatbelt use: always Helmet use: No Drive intox or ride w/intox distribution driver: No Do you feel safe at home: Yes Do you feel safe in your relationship?: Yes
--- NOTE | 2020-07-05 13:06 | STREC_ITS ---
Date of service: 07/05/20 Time of Service: 13:06 Speech Therapy Recommendations Report ST Recommendations: 07/05/2020 Subjective: Pt was seated in her chair upon arrival, breathing comfortably via trach; patient informally assessed given question of ability to ingest capsules upon return to discharge setting (home vs the [facility] at this time, per nursing staff). PO intake: Patient tolerating level 5 minced and moist solids, level 0 thin liquids, no report of globus sensation and/or discomfort; patient does endorse that she will at times have difficulties with larger pills, however she will often have these crushed at home, or take them whole with food, without difficulties. Communication: Patient reports that she does have electrolarynx at home but is not able to use it at this time, per patient, this is due to difficulty with neck placement; patient unable to name type/brand of electrolarynx however indicates she is interested in having follow-up DIRECTOR OF USER EXPERIENCE assessment and txt as appropriate. Discussed possible option for outpatient follow up as needed at this time, as local outpatient DIRECTOR OF USER EXPERIENCE is available at this time through [facility], and patient agreeable; home health DIRECTOR OF USER EXPERIENCE likely most appropriate given circumstances at this time per motivational interview; patient provided with written visual aid for advocacy with communication partners/healthcare providers re: s/p laryngectomy. Recommendations: Continue IDDSI level 5 minced&moist solid textures, level 0 thin liquids and pills whole with minced & moist and/or pureed foods, or, given patient reported comfort level with large pills, crushed per MD guidance; Recommend DIRECTOR OF USER EXPERIENCE consult upon return to home setting to provide education on use of electrolarynx to enhance communication/ability to express wants/needs outside of writing on her white board and/or mouthing words to communication partners. DIRECTOR OF USER EXPERIENCE communicated these recommendations to nursing, who also communicated need for DIRECTOR OF USER EXPERIENCE follow up upon discharge to intensive care anaesthetist. Please feel free to contact me with any questions. Viola De León MA [facility]-DIRECTOR OF USER EXPERIENCE DIRECTOR OF USER EXPERIENCE Service Code: [id number] Previous Available DIRECTOR OF USER EXPERIENCE Notes for Review: 12/12/2019 Medical Diagnosis: Tracheostomy Hemorrhage Therapy Diagnosis: Dysphagia Unspecified Swallow Treatment Techniques: Instruction provided regarding appropriate soft textures to facilitate pharyngeal transit, instruction provided regarding safe swallow strategies of small bites, thorough mastication, alternating liquids every few bites of solids, pacing rate of intake. Pt currently managing mec hanical soft/minced and moist textures with no s/s discomfort or reports of globus sensation when utilizing the above strategies. Pt/Caregiver/Staff Education: Education provided to pt, family and medical team regarding swallowing status, plan of care and goals. Education also provided regarding Electolarynx for communication. Family has contacted [facility] as well for status of equipment. DIRECTOR OF USER EXPERIENCE to f/u. Assessment: Pt is making progress with goals and continues state she wants to return home. Recommend home health DIRECTOR OF USER EXPERIENCE upon return home for further dysphagia treatment and family training as well as instruction in use of electrolarynx once it arrives. 12/10/2019 Date of service: 12/10/19 Time of Service: 08:00 Speech Therapy Evaluation Note: Speech-Language/Swallowing Pathology Clinical Dysphagia Evaluation Medical Diagnosis: Tracheostomy Hemorrhage Therapy Diagnosis: Dysphagia Unspecified Current Level of Care: Medical Subjective: Pt was sitting in the chair upon arrival, awake and alert. Pt was agreeable to evaluation. Pt able to communicate via mouthing words, gestures, facial expressions and writing. Pertinent Medical/Swallowing History & Previous Level of Function: Per MD H & P 12/02/19: Chief Complaint: hemoptysis Narrative: This is a 79-year-old female w/ a past medical history of pulmonary embolism, squamous cell carcinoma, vocal cord carcinoma, status post radiation, who underwent laryngectomy and thyroidectomy at [facility] complicated by an abscess and fluid collection, subsequent postoperative multi lobar pneumonia and pulmonary hemorrhage that required inhaled TXA. She was discharged from [facility] 6 days ago to home. Since being at home patient and family having difficulty managing trach and secretions. She was seen here 2 days prior for the same complaint and had labs and CT imaging which were unremarkable - she had been placed on humidified O2 with gentle suctioning of her tracheostomy which was cleared without any further bleeding and she was discharged home with plan for continued home health with both nursing and SUPERVISOR [employer]TING assistance. work up in the ED again was unremarkable. she will be referred to observation on med/surg for failure to manage trach at home. she was scheduled to see Dr Sánchez outpatient, she will see her here on med/surg. Per H & P 12/04/19: Chief Complaint: Right lower lobe pneumonia/tracheostomy care Narrative: This is an 79-year-old woman who has a history of laryngeal cancer. She underwent a laryngectomy procedure about 3 months ago at [facility]. It was a long complicated recovery. Post hospitalization she was at a long term in [facility]. She was home with family members caring for her for about 6 days. She was sent to the emergency room because of continued bleeding from her trachea. It turns out family members were suctioning through the trachea on a regular basis, causing some bleeding to occur which resulted in her being sent to the emergency room for evaluation. She was admitted and respiratory therapy worked with the patient and her family on proper suctioning techniques. The bleeding stopped. She was transition to swing bed in anticipation of returning home. She developed a cough and had a high white count so a chest x-ray was obtained on 12/04/2019. She was started on IV antibiotics for right lower lobe pneumonia. Urinalysis also showed evidence of infection. She was transitioned back to acute today. Additional PMHx includes: Per review of [facility] medical records obtained by DIRECTOR OF USER EXPERIENCE upon referral for swallow evaluation, pt was admitted to [facility] 09/09/19. Pt is s/p total laryngectomy and pharyngeal reconstruction with left RFFF 09/09/19. Hospital course was complicated by Klebsiella pneumoniae in right ROSITA fluid, leading to return to OR for washout on 09/19/19. Hospital course further complicated by subsegmental PE's, b/l pleural effusions, and b/l lower lobe airspace opacity. Pt having issues with decompensation and trach was exchanged from [facility] to [facility] with improved stability. Pt unable to tolerate anna marie tube per report due to airway collapse and required trach tube. Pt was seen by DIRECTOR OF USER EXPERIENCE multiple times at [facility] for both dysphagia and aphonia. Recommendations were made for electrolarynx and this was reported to be ordered however pt states today that she has not yet received it. This DIRECTOR OF USER EXPERIENCE will f/u with [facility] again as pt stating she would like to continue to pursue electrolarynx for improved ability to communicate. Pt was placed on a puree diet and thin liquids while at [facility]. Per Dr. Pryor's office, pt not currently scheduled for any follow ups. Current Level of Function & Reason for Referral: Pt is currently on a puree diet and thin liquids but receives most of her nutrition and hydration via PEG tube. Pt was referred for a swallow evaluation by Dr. Castro due to pt requesting diet upgrade. This DIRECTOR OF USER EXPERIENCE spoke with oncology team at [facility] who recommended pt return to them for assessment first however per Dr. Castro pt does not want to return to [facility] and will likely be transitioning to hospice upon return home. Bedside swallow evaluation was completed today. Precautions: s/p total laryngectomy, s/p tracheostomy Medications: Pt currently taking all meds crushed via PEG tube. Pt has indicated she has no interest in trialing meds PO. Barriers to Learning: None. Pt is alert and attention is WFL. Respiratory Function: Pt s/p tracheostomy. Last documented as Shiley size 8. Pt currently receiving continuous humidification. Posture/Positioning: WFL upright in chair. ORAL MECHANISM EXAMINATION Dentition: Pt has upper and lower dentures, good condition, well fitting. Pt has not worn dentures since 09/09/19 per her report. Pt in agreement to trial today for swallow evaluation. Pt reported no discomfort. Oral Hygiene: WFL, slight white coating on tongue however nsg and MD aware. Oral Structures: WFL Oral Function: WFL Strength: WFL Range of Motion: WFL Coordination: WFL Consistencies Tested: Thin liquids, puree, mechanical soft, regular/meltable (frederick crackers) Self-Feeding/Level of Assistance: Pt able to feed herself without difficulty. Oral Phase: WFL however pt requiring verbal cues for small bites, very thorough mastication, pacing rate of intake, and taking a drink every few bites to facilitate pharyngeal transit. Pt was able to manage small bites of regular however given h/o reduced PO intake for the past 3 months and lack of instrumental assessment will stay with soft solids only at this time. Pharyngeal Phase: Aspiration is not possible given total laryngectomy. Pt underwent Barium swallow 12/08/19 to rule out tracheoesophageal fistula. Unable to assess other pharyngeal functioning without instrumental assessment such as MBS given surgical history. Structural integrity unable to be assessed without endoscopy by ENT however as stated pt has reported she does not want to return to [facility] so this will likely not be completed. Esophageal Phase: Pt c/o feeling full frequently, with RD adjust tube feeding volumes per report. Pt/Caregiver/Staff Education: Anatomy/physiology changes with total laryngectomy, concerns for stasis, globus sensation and discomfort with solid foods given pharyngeal-esophageal structural and functional integrity unknown without instrumental assessment and limitations of bedside swallow evaluation. Assessment: Pt is a 79 year old woman s/p total laryngectomy 09/2019 for primary cancer of the right pyriform sinus who is currently receiving nutrition and hydration via PEG tube with some oral intake of pureed solids. With dentures present, pt demonstrating adequate oral skills for soft solids today with no c/o globus or discomfort at the pharyngeal/esophageal level. Fistula was ruled out via Barium swallow study yesterday and pt is therefore not at risk of aspiration. Given pts likely comfort care status, desire to discontinue cancer treatment, goals to return to some solid food intake, and ability to tolerate soft solids today with appropriate use of swallow strategies, recommend trial of mechanical soft solids with moist ground meat with direct supervision during meals to assess for discomfort. Pt and Dr. Castro in agreement with this plan. Pt would benefit from short term DIRECTOR OF USER EXPERIENCE services to ensure ability to tolerate increased textures as well as for ongoing pt and family education. Rehab Potential: Good for goals stated. Short-Term Goals: 1. Pt will manage least restrictive diet with no s/s or reports of dysphagia when following safe swallow protocol 100% of the time with assistance. Time Frame: 1 week Time Frame: 2 week Long-Term Goals: 1.Pt will increase nutrition and hydration PO to 50% of total needs with safe and effective swallowing as evidenced by no reports or s/s discomfort or globus sensation and stable weight. Time Frame: 2 weeks Pt Goal: To be able to eat real food again PLAN Planned Treatment Interventions: Dysphagia treatment Frequency: 3x/week Intensity: 45 minutes Duration: 2 weeks Discharge Plan: When goals met or pt reaches maximum functional potential. SWALLOWING RECOMMENDATIONS Diet Consistency Order: Mechanical soft with MOIST, ground meat. Liquids: Thin liquids. May use cup or straw. Medication Delivery: Crushed via PEG tube. Level of Assistance: Pt able to feed herself with set up. Recommend direct supervision at this time to monitor for s/s discomfort. Strategies/Adaptations: Upper and Lower Dentures MUST be in for ALL PO intake. Up into chair/out of bed for all PO intake. Use a pillow behind back as needed Cue pt to take small bites and chew thoroughly before swallowing. Cue to take a drink every few bites of food Upright for 30 minutes post meals. Check mouth after meals. Ensure dentures are removed and cleaned every night and put back in in the morning.
--- NOTE | 2020-07-05 14:32 | W.NUTRFU ---
Date of service: 07/05/20 Time of Service: 14:32 Nutritional Follow up NOTE: Lias continues to meet 100% nutrient and fluid needs by mouth. Continues to have PEG, consider removal as has been able to meet needs by mouth > 8 weeks. Following regular minced and moist with > 75% meal intake, weight stable. Time Spent in Nutritional Counseling and Treatment: 0 time spent face to face
--- NOTE | 2020-07-05 16:03 | CMDISCH_ITS ---
- If Service Date Differs Date of service: 07/05/20 Time of Service: 16:03 LACE Index Scoring Tool - Questions: Length of Stay (in days): 7 - 13 Acuity (Admit via E.D.?): Yes Comorbidities: Cerebrovascular Disease, Chronic Pulmonary Disease E.D. Visits: 9 - Answers: Total Score: 15 Risk of Readmission: High Risk Care Management Discharge Reason for Hospitalization: C Diff Colitis Discharge Plan: Lisa will return home into the care of her children and caregivers, coordinated through [facility]. She will have a resumption of services. LILLI discussed her options, which were to discharge home or to the [facility], who has accepted her for admission, and she decided that she preferred to go home, and stated that she was comfortable returning home. CM called the pharmacy for her new prescription, and attempted a PA, but it did not require one ultimately. CM called Trini to verify that she had enough medication until tomorrow afternoon, when her new prescription would be ready. She was driven home via private vehicle. She will follow up with her PCP and discharge plan of care. Patient/Family Education Needs: Review discharge instructions regarding activity levels and medication, discussion of self care needs and goals of care. Services Needed at Discharge: Home Health Care Services ([facility])
--- NOTE | 2020-07-06 08:15 | OT.INDS ---
Date of service: 07/06/20 Time of Service: 08:15 Occupational Therapy Notes Occupational Therapy Inpatient [facility] B1 Discharge Summary Date: 07/06/20 Dates of Service: 07/01/20-07/05/20 Referring Doctor:Jimbo Kidd MD OT Orders: Non-Urgent, Extended Stay-Weakness Precautions: Fall, Standard, DNR/DNI *This document serves as a summary of care, no skilled OT services provided for this documentation* PATIENT PROFILE/ADMITTING DIAGNOSIS: Pt is a 80 year old female currently under [facility] bed 1 status with a dx of colitis d/t clostridium difficile, physical deconditioning, protein-calorie malnutrition, anemia chronic disease, A-fib with controlled ventricular rate, COPD, depression and HTN. She presented to the ER on 06/25/20 with cheif c/o nausea, vomiting and diarrhea. It was determined to have pt admitted. She was recently transitioned to [facility] bed 1 rehabilitation status on 06/30/20 with goal to transition to the [facility] on 07/05/20 vs. return home on 07/08/20. OT was consulted for assessment of pt's functional (I) in regard to her ADL/IADL routines for assessment of adaptive equipment, performance of her ADLs and the amount of (A) needed, as well as progression of functional activity tolerance. Past Medical History- Medical History Adynamic ileus (Resolved) Anemia due to blood loss, acute (Acute) Anxiety (Chronic) Atrial fibrillation with controlled ventricular rate (Chronic) Benign paroxysmal vertigo Benign paroxysmal vertigo, unspecified ear (Resolved) Cataract (Resolved) O.U 02/24/14; Dr. Martin left extraction 03/10/14; Dr. 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 L hip-mild acetabular spurring 2014 - severe arthritis at facet joints Lumbago Nausea and vomiting (Inactive) Neutrophilic leukocytosis (Resolved) Oral thrush (Resolved) Oral ulcer (Resolved) 12/07/16 Peripheral edema (Chronic 07/31/16) Peripheral venous insufficiency (Chronic 12/03/08) edema Pharyngoesophageal dysphagia (Inactive) Physical deconditioning (Acute) Pneumonia of right lower lobe due to infectious organism (Resolved) Polyp of colon (Resolved) colonoscopy of 01/09/11-multiple polyps at multiple locations. 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 Very hard to regulate and cannot afford alternatives. Understands the risks. Repeat again - PE. back on anticoagualtion Right vocal cord cancer (Inactive) Seizure (Resolved) ? 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 NEG ECHO 2000 Urinary incontinence (Chronic 11/10/14) Vaginal lesion (Resolved) 03/22/16 Venous insufficiency Visual disturbance (Resolved) etiology unclear per -exam of 03/14/11 Vitamin D deficiency Vitamin D deficiency (Chronic 03/11/09) Vulvovaginitis (Resolved) Surgical History Extraction of cataract 4/22/14; LEFT EYE 03/10/14; RIGHT EYE History of bilateral tubal ligation (Resolved) History of laryngectomy (Acute) Ligation of fallopian tube Status post gastrostomy (Acute) Status post tracheostomy (Acute) Social History/Home Situation: Lisa lives in her own home and her family provides supportive care. She has three children Jasmin, Trini and Abdulaziz who all provide support at home. Lisa was recently discharged from [facility] on 11/27/2019 status post trach after surgical removal of her thyroid and Larnx. She states that she is (I) at her baseline in terms of ADLs/IADLs and requires some (A) with set up/clean up at times. She has a walk in shower with a seat per pt report. She states that she did not need (A) but was provided (A) from her family as needed. She communicates currently with a white board which seems to be most efficient for her at this time and also will communicate with non verbal vocal communication. She utilizes a FWW at baseline for functional mobility. SUBJECTIVE: NT OBJECTIVE: ROM: RUE AROM WFL L UE AROM WFL STRENGTH: RUE Shoulder flexion 4-/5, bicep 3/5, tricep 3/5, crown ironer operator is symmetrical and weak LUE Shoulder flexion 4/5, bicep 3+/5, tricep 3/5, crown ironer operator is symmetrical and weak FUNCTIONAL MOBILITY/ADLS: Grooming- Seated in chair pt denies washing her hair reporting that they washed it 2 days ago. She is (I) with brushing her hair and requires max (A) set up/clean up for teeth. BATHING sitting in chair with max (A) Set up/clean up (I) with washing face, (B) UE and abdomen with min vc for tubing on abdomen and being careful not to pull on tubes, (I) to (B) knees, max (A) below knees and pt denies (B) feet DRESSING Pt denies (B) socks at this time. She can reach in sitting position to her knees and this is similar to pts baseline when she was seen by this OT in November. Toileting on commode she requires max (A) for toileting hygiene however pt has the functional ROM to be able to perform this (I). She was not receptive trying or performing this on her own. BALANCE: Static sitting Normal Dynamic Sitting Good ASSESSMENT: Patient is a 80-year-old female referred to occupational therapy services with diagnosis of [facility] bed 1 status with a dx of colitis d/t clostridium difficile, physical deconditioning, protein-calorie malnutrition, anemia chronic disease, A-fib with controlled ventricular rate, COPD, depression and HTN. Pt was seen for 3 skilled OT sessions, she was able to demonstrate good functional activity tolerance and functional (I). She requires (A) for set up/clean up but when pt is standing at the sink she is able to do this all (I). She asks for max (A) with toileting hygiene but does have the functional ROM to perform this but denies. She was discharged home on 07/05/20. GOALS 1. Transfers with FWW (S)- met 2. Dressing sitting in chair (I) with UE/LE dressing- met for UE, pt continued to refuse LE 3. Bathing sitting in chair (I) with UE/ min (A) LE, pt will be able to wash face and (B) UE standing at sink- pt refused washing at sink but was able to perform her bathing (I) in seated position 4. Toileting on toilet min (A)- pt refused to perform her own toileting hygiene 5. Eating (I)- met PLAN OF CARE/TREATMENT PLAN: Discharge OT services. Pt returned home under the care of her children on 07/05/20. DISCHARGE RECOMMENDATIONS Based on pts current level of function OT recommends SNF vs. home with HH services. Pending plan for pt per care management report is either to return to the [facility] on Sunday vs. Return home with HH services on . TREATMENT TIME/MINUTES/CODES N/A Licha Richardson OTR/L [facility]
--- NOTE | 2020-07-09 18:00 | PT.INDS ---
Date of service: 07/09/20 PT Notes Visit Reasons: C. DIFFICILE COLITIS Inpatient Physical Therapy Discharge Summary Dates: 07/09/2020 Dates of Service: 07/01/2020 through 07/05/2020 This is a clinical summary of care provided on the duration of dates listed above. No charge was made in the completion of this documentation. Referring Doctor:Jimbo Kidd MD OT Orders: Non-Urgent, Extended Stay-Weakness Precautions: Fall, Standard, DNR/DNI PATIENT PROFILE/ADMITTING DIAGNOSIS: Pt is a 80 year old female currently under [facility] bed 1 status with a dx of colitis d/t clostridium difficile, physical deconditioning, protein-calorie malnutrition, anemia chronic disease, A-fib with controlled ventricular rate, COPD, depression and HTN. She presented to the ER on 06/25/20 with cheif c/o nausea, vomiting and diarrhea. It was determined to have pt admitted. She was recently transitioned to [facility] bed 1 rehabilitation status on 06/30/20 with goal to transition to the [facility] on 07/05/20 vs. return home on 07/08/20. PT was consulted for assessment of pt's functional activity capabilities. Past Medical History- Medical History Adynamic ileus (Resolved) Anemia due to blood loss, acute (Acute) Anxiety (Chronic) Atrial fibrillation with controlled ventricular rate (Chronic) Benign paroxysmal vertigo Benign paroxysmal vertigo, unspecified ear (Resolved) Cataract (Resolved) O.U 02/24/14; Dr. Martin left extraction 03/10/14; Dr. 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 L hip-mild acetabular spurring 2014 - severe arthritis at facet joints Lumbago Nausea and vomiting (Inactive) Neutrophilic leukocytosis (Resolved) Oral thrush (Resolved) Oral ulcer (Resolved) 12/07/16 Peripheral edema (Chronic 07/31/16) Peripheral venous insufficiency (Chronic 12/03/08) edema Pharyngoesophageal dysphagia (Inactive) Physical deconditioning (Acute) Pneumonia of right lower lobe due to infectious organism (Resolved) Polyp of colon (Resolved) colonoscopy of 01/09/11-multiple polyps at multiple locations. 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 Very hard to regulate and cannot afford alternatives. Understands the risks. Repeat again - PE. back on anticoagualtion Right vocal cord cancer (Inactive) Seizure (Resolved) ? 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 NEG ECHO 2000 Urinary incontinence (Chronic 11/10/14) Vaginal lesion (Resolved) 03/22/16 Venous insufficiency Visual disturbance (Resolved) etiology unclear per -exam of 03/14/11 Vitamin D deficiency Vitamin D deficiency (Chronic 03/11/09) Vulvovaginitis (Resolved) Surgical History Extraction of cataract 02/24/14; LEFT EYE 03/10/14; RIGHT EYE History of bilateral tubal ligation (Resolved) History of laryngectomy (Acute) Ligation of fallopian tube Status post gastrostomy (Acute) Status post tracheostomy (Acute) Social History/Home Situation: Lisa lives in her own home and her family provides supportive care. She has three children Jasmin, Trini and Abdulaziz who all provide support at home. Lisa was recently discharged from [facility] on 11/27/2019 status post trach after surgical removal of her thyroid and Larnx. She states that she is (I) at her baseline in terms of ADLs/IADLs and requires some (A) with set up/clean up at times. She has a walk in shower with a seat per pt report. She states that she did not need (A) but was provided (A) from her family as needed. She communicates currently with a white board which seems to be most efficient for her at this time and also will communicate with non verbal vocal communication. She utilizes a FWW at baseline for functional mobility. SUBJECTIVE: NT. See most recent LABORATORY EQUIPMENT INSTALLER notes. OBJECTIVE: General Observation: NT. See most recent LABORATORY EQUIPMENT INSTALLER notes. Mental Status: NT. See most recent LABORATORY EQUIPMENT INSTALLER notes. Pain: NT. See most recent LABORATORY EQUIPMENT INSTALLER notes. ROM: RUE AROM WFL L UE AROM WFL B LE's: WNL STRENGTH: RUE Shoulder flexion 4-/5, bicep 4/5, tricep 4/5, skid machine operator is symmetrical and weak LUE Shoulder flexion 4/5, bicep 4/5, tricep 4/5, skid machine operator is symmetrical and weak B LE's grossly 4/5 FUNCTIONAL MOBILITY: Sit to stand supervision Stand to sit supervision Bed to chair supervision Chair to bed supervision Gait: 30 feet with front wheeled walker with full weightbearing requiring standby assist with wheelchair follow. BALANCE: Static sitting Normal Dynamic sitting normal Static standing fair Dynamic fair ASSESSMENT: Lisa demonstrates significant functional mobility improvement for this episode of care as indicated and the discharge mobility level above. She is a 80-year-old female referred to physical therapy services with diagnosis of [facility] bed 1 status with a dx of colitis d/t clostridium difficile, physical deconditioning, protein-calorie malnutrition, anemia chronic disease, A-fib with controlled ventricular rate, COPD, depression and HTN. GOALS Goals x1 week 1. Independent with use of RW for 100 feet ambulation NOT MET 2. Independent with all sit to stand and vice versa transfers NOT MET 3 Independent bed mobility NOT MET 4. good balance with all dynamic ambulation NOT MET 5. Independent with self maintenance HEP NOT MET 6. Family demonstrating good supervision skills with patient's functional activity with ADLs NOT MET DISCHARGE RECOMMENDATIONS Home with caregiver and family upon achievement of rehab goals. TREATMENT TIME/MINUTES/CODES: NC Thank you for the opportunity to participate in the care of this patient. Valeria Reyes PT, DPT, CLT [facility] [place], [place]
== END 2020-07-05 15:15 | disposition home health service (06) | DRG 371 ==
PROVIDERS: Internal Medicine; Admitting Provider Internal Medicine; PCP Family Medicine; Visit Provider Internal Medicine
DX: A04.72 Enterocolitis due to Clostridium difficile, not specified as recurrent (principal); Q28.2 Arteriovenous malformation of cerebral vessels; E44.1 Mild protein-calorie malnutrition; I48.0 Paroxysmal atrial fibrillation; J44.9 Chronic obstructive pulmonary disease, unspecified; I10 Essential (primary) hypertension; F32.9 Major depressive disorder, single episode, unspecified; Z93.0 Tracheostomy status; Z93.1 Gastrostomy status; F41.9 Anxiety disorder, unspecified; Z86.73 Personal history of transient ischemic attack (TIA), and cerebral infarction without residual deficits; Z87.891 Personal history of nicotine dependence; E78.5 Hyperlipidemia, unspecified; R53.1 Weakness; E86.0 Dehydration; H81.10 Benign paroxysmal vertigo, unspecified ear; Z86.711 Personal history of pulmonary embolism; I87.2 Venous insufficiency (chronic) (peripheral); E55.9 Vitamin D deficiency, unspecified; R32 Unspecified urinary incontinence; D63.8 Anemia in other chronic diseases classified elsewhere
CPT/HCPCS: 97110; 97162; 97165; 97530; 97535; 99305; 99316; U0003; 81003; 87086; 94640; J3490; J7620

== ENCOUNTER → 2020-07-19 08:11 | Outpatient (BNVA) | payer OTHER, MEDICAID, SELFPAY | PROVIDERS: PCP Family Medicine; Referring Provider Family Medicine; Visit Provider Surgery | DX: I48.91 Unspecified atrial fibrillation (principal); Z46.59 Encounter for fitting and adjustment of other gastrointestinal appliance and device; Z79.01 Long term (current) use of anticoagulants; J44.9 Chronic obstructive pulmonary disease, unspecified; I10 Essential (primary) hypertension | CPT/HCPCS: 43762; 99212 ==

== ENCOUNTER 2020-09-02 11:32 | Outpatient (REF) | payer OTHER, MEDICAID, SELFPAY ==
--- NOTE | 2020-09-02 11:00 | TRACHEABX_PTH ---
PATIENT: Lisa Anderson LOC: [facility] U#:[id number] AGE/SX: 80/F ROOM: RE09/02/[address]: Jona Bañuelos MD : [id number] BED: DIS: 09/02/2020 SPEC #: [id number] RECD: 09/03/20 12:47 STATUS: KEANU REQ #: [id number] [place]: 09/02/20 11:[address]: Jona Bañuelos DEPT: Surgical Specimen RECD BY: Letty Quintero ENTERED: 09/03/20 12:50 SP TYPE: TRACHEABX OTHR DR: Caridad Sánchez MD, DC Dylan Cartwright Tissues: 1 - TRACHEA BIOPSY Procedures: GROSS AND MICRO LEVEL 4 Comments: [id number] ([facility] [place]#)
== END 2020-09-02 11:52 ==
LOC: LBN 11:32
PROVIDERS: PCP Family Medicine; Visit Provider Otolaryngology
DX: L92.8 Other granulomatous disorders of the skin and subcutaneous tissue (principal); Z93.0 Tracheostomy status; Z85.818 Personal history of malignant neoplasm of other sites of lip, oral cavity, and pharynx
CPT/HCPCS: 88305

== ENCOUNTER 2021-02-18 14:22 | Emergency (ER) | payer OTHER, MEDICAID, SELFPAY ==
[2021-02-18] VITALS (15 sets, daily range): BP systolic 142–157; BP diastolic 58–95; PULSE 68–77; RESP 18; TEMP 36.4; O2SAT 92–99
--- NOTE | 2021-02-18 14:46 | W.ED.GENAD ---
Discharge Plan Disposition Patient Disposition: HOME Condition: Improving Discharge Details Clinical Impression: Constipation, Trouble swallowing Primary Care Provider: Caridad Sánchez ED Provider: Camryn Serrano Home Meds and New Rx's Prescriptions: No Action ipratropium bromide 42 mcg (0.06 %) spray,non-aerosol 2 spray intranasal TID Qty: 15 RF: 5 guaifenesin [Tussin Mucus-Chest Congestion] 100 mg/5 mL liquid 400 mg PO BID Qty: 1000 RF: 0 ferrous sulfate 325 mg (65 mg iron) tablet 325 mg PO DAILY Qty: 90 RF: 0 mirtazapine [Remeron SolTab] 15 mg tablet,disintegrating 15 mg PO QHS MDD 22.5 Qty: 90 RF: 6 mirtazapine 7.5 mg tablet 7.5 mg PO DAILY MDD 22.5 Qty: 90 RF: 4 water for irrigation, sterile Solution 20 ml PO Q6H Qty: 8000 RF: 4 metoprolol succinate 25 mg tablet extended release 24 hr 12.5 mg PO BID Qty: 90 RF: 4 potassium chloride 20 mEq packet 20 meq PO BID Qty: 60 RF: 4 nystatin 100,000 unit/mL suspension 5 ml PO TID PRN (Reason: thrush) Qty: 200 RF: 7 Eliquis 5 mg tablet 5 mg PO BID Qty: 180 RF: 12 ipratropium-albuterol 0.5 mg-3 mg(2.5 mg base)/3 mL solution for nebulization 3 ml IH QID PRN (Reason: wheezing. J44.9) Qty: 180 RF: 8 metoclopramide HCl [Reglan] 5 mg tablet 5 mg PO BID Qty: 180 RF: 4 furosemide 40 mg tablet 40 mg PO DAILY RF: 0 Metamucil Sugar-Free (aspart) 3.4 gram/5.8 gram Powder 3.4 gm PO BID Qty: 283 RF: 0 Bio-K plus 50 billion cell Capsule,Delayed Release(Dr/Ec) 1 cap PO DAILY Qty: 90 RF: 0 water for injection, sterile Solution 10 ml PO Q6H Qty: 1 RF: 0 Discharge Instructions Instructions: Constipation (ED), Dysphagia (ED), Barium Swallow (DC) Additional Instructions: Call Dr. Carcamo office on Sunday morning to make an appointment. I did speak with Dr. Pierre with the ear nose and throat department at [facility] today and he recommended close follow-up for a possible scope. Today we did a barium swallow x-ray which showed no visualized esophageal foreign body, x-ray of the abdomen showed moderate constipation. Lab work was all within normal limits. We did give you a fleets enema which helped to produce bowel movement. Continue with mechanical soft diet and liquids only. Return to the ED for any fever, continued vomiting, pain unable to have a bowel movement or any concerns. Referrals: Caridad Sánchez MD, DC [Primary Care Provider] - Discharge Data Discharge Date/Time-TO BE ENTERED AT DEPARTURE: 02/18/21 17:59 Medical Decision Making 80-year-old female [facility]us stuck in her throat. She reports that last night she was having some soup and crackers and felt like something was stuck in her throat. Upon further questioning of patient's family it appears that patient ate some ham last night and then began vomiting. She has been unable to keep down any food since then. She also reports no bowel movement in approximately 2 weeks. Son states that they have been trying stool softeners at home with little to no relief. Abdomen is soft nontender with palpation patient has a extensive ear nose and throat history including laryngectomy, laryngeal cancer, Caldera's disease, carotid stenosis, CVA, 1515: Discussed with radiologist regarding patient and appropriate imaging he recommends a barium swallow x-ray and a flatplate of the abdomen due to the report of constipation. Orders placed Son Sb at bedside for additional history. CLINICAL HISTORY: R/O Retained FB TECHNIQUE: 2D and realtime digital imaging was performed. CONTRAST MATERIAL: Oral barium Oral water soluble contrast was administered. COMPARISON: CR,RF RF BARIUM SWALLOW from 12/08/2019 FINDINGS: ESOPHAGRAM: The esophagus is patent with no evidence for erosions, fold thickening, strictures, or masses. With regards to the motility, there are tertiary contractions. No filling defects are seen to suggest retained foreign body. There is no hiatal hernia or gastroesophageal reflux. The patient has had prior oral surgery. The patient has difficulty in the oral phase of swallowing. IMPRESSION: 1. No evidence of a retained foreign body in the esophagus. 2. Difficulty with the oral phase of swallowing. Barium swallow study with speech pathology should be considered for further evaluation. 3. Results of this exam have been verbally communicated with provider. Discussed barium swallow results with family patient verbalized understanding. At this time I did order some labs to rule out other etiologies for the vomiting. And x-ray abdomen due to report of constipation for the last 2 weeks. Differential diagnosis includes but not limited to retained foreign body in esophagus, esophageal stricture, constipation, small bowel obstruction, nausea vomiting, viral gastroenteritis. 1638: Call made to [facility] for consultation with ENT. X-ray complete acute abdomen series FINDINGS: Lungs: Changes of emphysema with scattered fibrosis, stable since 06/25/2020. Pleural spaces: Normal. No pleural effusions. No pneumothorax. Heart/Mediastinum: Normal. No cardiomegaly. Gastrointestinal tract: Contrast in the stomach and small bowel. No dilated loops of bowel are identified. Moderate stool in the colon. Intraperitoneal space: Normal. No free air. Vasculature: Aortic calcifications. Bones/joints: The bones are demineralized and there is degenerative arthritis in the spine and shoulders. Thoracic curve, convex to the left. Lumbar curve, convex to the right. Soft tissues: Coarse calcifications project over the right mid abdomen. These could be nephrolithiasis, cholelithiasis, or pancreatic calcifications. Other findings: Tracheostomy. Percutaneous gastrostomy. IMPRESSION: 1. Contrast in the stomach and nondilated loops of small bowel. Moderate stool without visible contrast in the normal caliber colon. 2. Emphysema and fibrosis with a tracheostomy Thank you for allowing us to participate in the care of your patient. Dictated and Authenticated by: Domi Ley MD Fleets enema ordered due to moderate constipation:. Enema was successful and patient had immediate relief and no movement here in department. Will try p.o. challenge make sure patient can hold down food prior to discharge. At this time still awaiting a callback throat I do not hear from them I will recommend close follow-up with PCP and/or ear nose and throat if problems persist. 1731: Contact made with Dr. Pierre with [facility] ENT regarding patient, I did discuss patient case and details, he was able to personally visualize the Barium swallow Xray, and states there may be a stricture forming, he reccommends a follow up with Dr. Hill in the office for flexible endoscope for re-evaluation, He recommends family and patient call office Sunday to make appointment. 1746: Patient was able to eat some pudding here in department she did have small amount regurgitated. Patient was able to eat a whole container of yogurt. She was able to drink some water without difficulty. Discussed results with son and patient who verbalized understanding. Discussed follow-up with [facility] ear nose and throat and to call on Sunday morning to make an appointment. Discussed lab results and the x-ray results. This text was generated using [employer] system, please disregard any oddities of phrase or misspellings. HPI General Mode of arrival: wheelchair. Date/Time Provider Initiated Documentation: 02/18/21 14:24. Limitations to Documentation: language barrier. Information obtained by: patient, family (Daughter Trini) and old records reviewed. HPI Narrative: 80-year-old female presents the [facility] hospital food bolus stuck in her throat. She reports that last night she was having some soup and crackers and felt like something was stuck in her throat. Upon further questioning of patient's family it appears that patient ate some ham last night and then began vomiting. She has been unable to keep down any food since then. She also reports no bowel movement in approximately 2 weeks. Son states that they have been trying stool softeners at home with little to no relief. Abdomen is soft nontender with palpation patient has a extensive ear nose and throat history including laryngectomy, laryngeal cancer, Caldera's disease, carotid stenosis, CVA, Related Data Home Medications Medication Instructions Recorded Confirmed guaifenesin 100 mg/5 mL oral liquid 400 mg PO BID #1000 ml 11/29/19 02/18/21 furosemide 40 mg PO DAILY 05/13/20 02/18/21 Bio-K plus 1 cap PO DAILY #90 cap 06/01/20 02/18/21 Metamucil Sugar-Free (aspart) 3.4 gm PO BID #283 gm 06/01/20 02/18/21 water for injection, sterile 10 ml PO Q6H #1 ml 06/30/20 02/18/21 ferrous sulfate 325 mg (65 mg 325 mg PO DAILY #90 tab 11/12/20 02/18/21 iron) tablet mirtazapine 15 mg disintegrating 15 mg PO QHS #90 tab MDD 22.5 11/29/20 02/18/21 tablet mirtazapine 7.5 mg tablet 7.5 mg PO DAILY #90 tab MDD 22.5 11/29/20 02/18/21 water for irrigation, sterile 20 ml PO Q6H #8000 ml 12/09/20 02/18/21 metoprolol succinate 25 mg 12.5 mg PO BID #90 tab 12/29/20 02/18/21 tablet,extended release 24 hr potassium chloride 20 mEq oral 20 meq PO BID #60 ea 12/29/20 02/18/21 packet nystatin 100,000 unit/mL oral 5 ml PO TID PRN #200 ml 01/06/21 02/18/21 suspension apixaban 5 mg tablet 5 mg PO BID #180 tab 01/18/21 02/18/21 ipratropium 0.5 mg-albuterol 3 mg 3 ml IH QID PRN #180 ml 01/18/21 (2.5 mg base)/3 mL nebulization soln metoclopramide HCl 5 mg tablet 5 mg PO BID #180 tab 01/18/21 02/18/21 ipratropium bromide 42 mcg (0.06 2 spray INTRANASAL TID #15 ml 02/01/21 02/01/21 %) nasal spray Previous Rx's Medication Instructions Recorded guaifenesin 100 mg/5 mL oral liquid 400 mg PO BID #1000 ml 11/29/19 Bio-K plus 1 cap PO DAILY #90 cap 06/01/20 Metamucil Sugar-Free (aspart) 3.4 gm PO BID #283 gm 06/01/20 water for injection, sterile 10 ml PO Q6H #1 ml 06/30/20 ferrous sulfate 325 mg (65 mg 325 mg PO DAILY #90 tab 11/12/20 iron) tablet mirtazapine 15 mg disintegrating 15 mg PO QHS #90 tab MDD 22.5 11/29/20 tablet mirtazapine 7.5 mg tablet 7.5 mg PO DAILY #90 tab MDD 22.5 11/29/20 water for irrigation, sterile 20 ml PO Q6H #8000 ml 12/09/20 metoprolol succinate 25 mg 12.5 mg PO BID #90 tab 12/29/20 tablet,extended release 24 hr potassium chloride 20 mEq oral 20 meq PO BID #60 ea 12/29/20 packet nystatin 100,000 unit/mL oral 5 ml PO TID PRN #200 ml 01/06/21 suspension apixaban 5 mg tablet 5 mg PO BID #180 tab 01/18/21 ipratropium 0.5 mg-albuterol 3 mg 3 ml IH QID PRN #180 ml 01/18/21 (2.5 mg base)/3 mL nebulization soln metoclopramide HCl 5 mg tablet 5 mg PO BID #180 tab 01/18/21 ipratropium bromide 42 mcg (0.06 2 spray INTRANASAL TID #15 ml 02/01/21 %) nasal spray Allergies Allergy/AdvReac Type Severity Reaction Status Date / Time atorvastatin AdvReac Intermediate pt does Unverified 02/18/21 14:40 not think she has an allergy to this med General Stated Complaint: Sorethroat SUHA: 2 Review of Systems All systems reviewed & are unremarkable except as noted in HPI and below ENT Ears, Nose, Mouth, and Throat: Reports as per HPI and Reports dysphagia Gastrointestinal Gastrointestinal: Reports as per HPI, Reports change in stool character, Reports constipation (X 2 weeks), Reports dysphagia, Reports nausea and Reports vomiting [facility] Medical History Adynamic ileus Anemia due to blood loss, acute Anxiety Atrial fibrillation with controlled ventricular rate Benign paroxysmal vertigo Benign paroxysmal vertigo, unspecified ear C. difficile diarrhea Cataract O.U 02/24/14; Dr. Martin left extraction 03/10/14; Dr. 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 L hip-mild acetabular spurring 2014 - severe arthritis at facet joints Lumbago Nausea and vomiting Neutrophilic leukocytosis Oral thrush Oral ulcer 12/07/16 Peripheral edema (07/31/16) Peripheral venous insufficiency (12/03/08) edema Pharyngoesophageal dysphagia Physical deconditioning Pneumonia of right lower lobe due to infectious organism Polyp of colon colonoscopy of 01/09/11-multiple polyps at multiple locations. 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 Very hard to regulate and cannot afford alternatives. Understands the risks. Repeat again - PE. 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 The tracheostomy appears healthy save for small amount of granulation tissue.02/25 Stenosis of carotid artery (01/20/16) carotid us 01/18 TMJ (temporomandibular joint disorder) right Tracheostomy hemorrhage Tracheostomy hemorrhage Transient ischemic attack (08/04/03) POS MRI R TEMPORAL LOBE. NEG ECHO 2000 Urinary incontinence (11/10/14) Vaginal lesion 03/22/16 Venous insufficiency Visual disturbance etiology unclear per -exam of 03/14/11 Vitamin D deficiency Vitamin D deficiency (03/11/09) Vulvovaginitis Surgical History Extraction of cataract 02/24/14; LEFT EYE 03/10/14; RIGHT EYE History of bilateral tubal ligation History of laryngectomy Ligation of fallopian tube Status post gastrostomy Status post tracheostomy Family History Mother , 85 Vaginal cancer Father , 74 Heart disease COPD (chronic obstructive pulmonary disease) Sister , 63 Heart disease ASHD/CHF Lung cancer Maternal Grandmother Heart disease Paternal Grandmother Diabetes Son , 40 Substance abuse Heart disease Sister No problems noted. Sister No problems noted. Son RA (rheumatoid arthritis) Daughter No problems noted. Daughter No problems noted. Paternal Grandfather , 80 No problems noted. Social History Smoking/Tobacco Use Status: Former Tobacco Use Quit Date: 06/05/01 Second Hand Exposure: Yes Smoking risk assessment performed?: Yes Alcohol Intake: former Drug use: Never Substance use type: does not use Caregiver/Support person: Yes Household members: none Housing: house Do you need help understanding health information?: Rarely Pets and animals: No Sexually active: No Current gender identity: female What is your relationship status?: How often do you talk on the phone with friends or family?: never How often do you get together with friends or relatives?: decline to answer How often do you attend baptist or bahai services?: decline to answer Do you belong to any clubs or organized social groups?: decline to answer Panel score (0-1 are the most socially isolated patients): 0 What type of physical activity do you participate in: decline to answer Duration: 15-30 minutes/day Frequency: 1-2 times per week Bethany/Mormon: Presybeterian Special bethany needs: No Seatbelt use: always Helmet use: No Drive intox or ride w/intox funeral 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 Appears stated age. Well-nourished body habitus. Head: Normocephalic, no trauma. Eyes: Pupils PERRLA, Red reflex noted, EOM's intact. Eyelids symmetrical without lesions, discharge, or swelling. ENT: Bilateral TM's WNL, External ear normal to inspection, no mastoid TTP, swelling, or erythema, Nasal turbinates WNL, no nasal discharge. Patient has upper dentures in place. Posterior pharynx slightly erythemic, difficulty in visualizing, uvula is midline. No exudate or lesions noted. No stridor auscultated. Patient has a tracheotomy in place no surrounding erythema, drainage. Patient is nonverbal due to no voicebox. She is not actively drooling and seems to be handling her secretions well. Chest: RRR, Normal S1, S2, distal pulses intact. Resp: Lungs clear to auscultation bilaterally, no wheezes, rales, or rhonchi. Musculoskeletal: Normal gait, 5/5 strength to all four extremities. Skin: No suspicious rashes or lesions. Capillary refill less than 2 sec. Neurologic: Cranial nerves II-XII intact. Alert and oriented x 3. DTR's intact. Hematologic/Lymphatic: No ecchymosis, no lymphadenopathy. Course Vital Signs Vital signs: Vital Signs Temperature 36.4 C L 02/18/21 14:31 Pulse 77 02/18/21 14:31 Respiratory Rate 18 02/18/21 14:31 Blood Pressure 154/58 H 02/18/21 14:31 Pulse Oximetry 98 02/18/21 14:31 Temperature 36.4 C L 02/18/21 14:31 Temperature Source Skin 02/18/21 14:31 Pulse 77 02/18/21 14:31 Respiratory Rate 18 02/18/21 14:31 Respiratory Effort Non-Labored 02/18/21 14:34 Blood Pressure 154/58 H 02/18/21 14:31 Blood Pressure Position Supine 02/18/21 14:31 Pulse Oximetry 98 02/18/21 14:31 Oxygen Delivery Method Room Air 02/18/21 14:31 Oxygen Flow Rate 0 02/18/21 14:31 Pain Level 0 02/18/21 14:31
--- NOTE | 2021-02-18 15:00 | DI.RAD_ITS ---
EXAM: XR ABD FLAT UPRIGHT PA CHEST CLINICAL HISTORY: Constipation TECHNIQUE: COMPARISON: CR,XR XR ABD FLAT UPRIGHT PA CHEST from 06/25/2020 FINDINGS: Semi upright AP chest and two views of the abdomen were obtained. There is a tracheostomy tube in po sition. Heart is mildly enlarged. Lungs are grossly clear with changes of COPD and scarring. Barium swallow was performed earlier today, there is barium seen in the stomach and in grossly unrema rkable appearing loops of small bowel. No gross organomegaly seen. No evidence of obstruction. IMPRESSION: No evidence of acute process. RADIATION DOSE DELIVERED: Total DLP
[2021-02-18] MEDS: Barium Sulfate 60% W/V 355 ML BTL PO (16:07)
--- NOTE | 2021-02-18 16:07 | DI.RAD_ITS ---
EXAM: RF BARIUM SWALLOW CLINICAL HISTORY: R/O Retained FB TECHNIQUE: 2D and realtime digital imaging was performed. CONTRAST MATERIAL: Oral barium Oral water soluble contrast was administered. COMPARISON: CR,RF RF BARIUM SWALLOW from 12/08/2019 FINDINGS: ESOPHAGRAM: The esophagus is patent with no evidence for erosions, fold thickening, strictures, or ma sses. With regards to the motility, there are tertiary contractions. No filling defects are seen to suggest retained foreign body. There is no hiatal hernia or gastroesophageal reflux. The patient has had prior oral surgery. The patient has difficulty in the oral phase of swallowing. IMPRESSION: 1. No evidence of a retained foreign body in the esophagus. 2. Difficulty with the oral phase of swallowing. Barium swallow study with speech pathology should b e considered for further evaluation. 3. Results of this exam have been verbally communicated with provider. RADIATION DOSE DELIVERED: ania Smith= mGy
[2021-02-18] MEDS: Dexamethasone 10 MG/ML VIAL PO (16:29)
[2021-02-18 16:42] LABS: Abs Immature Grans 0.01 10^3/uL (0.0-0.06); Absolute Basophil Count 0.02 10^3/uL (0.0-0.2); Absolute Eosinophil Count 0.03 10^3/uL (0.0-0.7); Absolute Lymphocyte Count 1.91 10^3/uL (1.2-3.4); Absolute Monocyte Count 0.65 10^3/uL (0.1-0.8); Basophils % 0.3; Eosinophils % 0.4; HCT 39.1 % (36.0-46.0); HGB 12.9 g/dL (11.2-15.7); Immature Grans % 0.1; Lymphocytes % 26.8; MCH 30.9 pg (27.0-33.0); MCV 93.8 fL (80-95); MPV 8.9 fL (8.0-11.0); Monocytes % 9.1; Neutrophils % 63.3; Nucleated RBC 0 %; Platelet Count 239 10^3/uL (130-400); RBC 4.17 10^6/uL (3.93-5.22); RDW 13.2 % (11.7-14.6); RDW-SD 45.8 fL; WBC 7.12 10^3/uL (4.4-10.8)
--- NOTE | 2021-02-18 16:49 | DI.VRAD_ITS ---
PROCEDURE INFORMATION: Exam: XR Complete Acute Abdomen Series Exam date and time: 02/18/2021 3:19 PM Age: 80 years old Clinical indication: Other: Constipation TECHNIQUE: Imaging protocol: XR complete acute abdomen series, including 2 or more views of the abdomen and a single view chest. COMPARISON: CR XR ABD FLAT UPRIGHT PA CHEST 06/25/2020 7:11 PM FINDINGS: Lungs: Changes of emphysema with scattered fibrosis, stable since 06/25/2020. Pleural spaces: Normal. No pleural effusions. No pneumothorax. Heart/Mediastinum: Normal. No cardiomegaly. Gastrointestinal tract: Contrast in the stomach and small bowel. No dilated loops of bowel are identified. Moderate stool in the colon. Intraperitoneal space: Normal. No free air. Vasculature: Aortic calcifications. Bones/joints: The bones are demineralized and there is degenerative arthritis in the spine and shoulders. Thoracic curve, convex to the left. Lumbar curve, convex to the right. Soft tissues: Coarse calcifications project over the right mid abdomen. These could be nephrolithiasis, cholelithiasis, or pancreatic calcifications. Other findings: Tracheostomy. Percutaneous gastrostomy. IMPRESSION: 1. Contrast in the stomach and nondilated loops of small bowel. Moderate stool without visible contrast in the normal caliber colon. 2. Emphysema and fibrosis with a tracheostomy Dictated and Authenticated by: Domi Ley MD. Ordering:THOM Cowan MD
[2021-02-18 17:19] LABS: ALT 16 U/L (14-59); AST 20 U/L (15-37); Albumin 3.2 g/dL (3.4-5.0); Alkaline Phosphatase 116 U/L (46-116); Anion Gap 10.4 mmol/L (3-11); BUN 14 mg/dL (7-18); Bilirubin, Total 0.7 mg/dL (0.2-1.0); CO2 26.6 mmol/L (21.0-32.0); Calcium 9.2 mg/dL (8.5-10.1); Chloride 104 mmol/L (98-107); Estimated GFR 53.08 (mL/min/1.73m2); Glucose 95 mg/dL (74-106); Lipase 151 U/L (73-393); Potassium 3.9 mmol/L (3.5-5.1); Sodium 141 mmol/L (136-145); Total Protein 7.7 g/dL (6.4-8.2)
== END 2021-02-18 17:59 | disposition home or self-care (01) ==
PROVIDERS: Emergency Provider Registered Nurse Emergency; PCP Family Medicine
DX: R13.11 Dysphagia, oral phase (principal); K59.00 Constipation, unspecified
CPT/HCPCS: 80053; 83690; 99284; 74022; 74221; 85025; 99283; J1100

== ENCOUNTER 2021-05-19 19:39 | Emergency (ER) | payer OTHER, MEDICAID, SELFPAY ==
[2021-05-19 19:47] VITALS: BP 158/89; PULSE 95; RESP 18; TEMP 36.6; O2SAT 96
--- NOTE | 2021-05-19 20:03 | W.ED.GENAD ---
Discharge Plan Disposition Patient Disposition: HOME Condition: Stable Discharge Details Clinical Impression: Tracheostomy care Primary Care Provider: Caridad Sánchez ED Provider: Camryn Serrano Home Meds and New Rx's Prescriptions: No Action ipratropium bromide 42 mcg (0.06 %) spray,non-aerosol 2 spray intranasal TID Qty: 15 RF: 5 guaifenesin [Tussin Mucus-Chest Congestion] 100 mg/5 mL liquid 400 mg PO BID Qty: 1000 RF: 0 mirtazapine [Remeron SolTab] 15 mg tablet,disintegrating 15 mg PO QHS MDD 22.5 Qty: 90 RF: 6 mirtazapine 7.5 mg tablet 7.5 mg PO DAILY MDD 22.5 Qty: 90 RF: 4 water for irrigation, sterile Solution 20 ml PO Q6H Qty: 8000 RF: 4 metoprolol succinate 25 mg tablet extended release 24 hr 12.5 mg PO BID Qty: 90 RF: 4 potassium chloride 20 mEq packet 20 meq PO BID Qty: 60 RF: 4 nystatin 100,000 unit/mL suspension 5 ml PO TID PRN (Reason: thrush) Qty: 200 RF: 7 Eliquis 5 mg tablet 5 mg PO BID Qty: 180 RF: 12 ipratropium-albuterol 0.5 mg-3 mg(2.5 mg base)/3 mL solution for nebulization 3 ml IH QID PRN (Reason: wheezing. J44.9) Qty: 180 RF: 8 metoclopramide HCl [Reglan] 5 mg tablet 5 mg PO BID Qty: 180 RF: 4 ferrous sulfate 325 mg (65 mg iron) tablet 325 mg PO DAILY Qty: 90 RF: 0 polyethylene glycol 3350 [Miralax] 17 gram powder in packet 17 g PO DAILY PRN (Reason: constipation) Qty: 100 RF: 0 nystatin 100,000 unit/gram powder 1 applic topical BID Qty: 60 RF: 4 furosemide 40 mg tablet 40 mg PO DAILY Qty: 90 RF: 3 Metamucil Sugar-Free (aspart) 3.4 gram/5.8 gram Powder 3.4 gm PO BID Qty: 283 RF: 0 Bio-K plus 50 billion cell Capsule,Delayed Release(Dr/Ec) 1 cap PO DAILY Qty: 90 RF: 0 water for injection, sterile Solution 10 ml PO Q6H Qty: 1 RF: 0 Discharge Instructions Instructions: Tracheostomy Care (ED) Additional Instructions: Return for any significant bleeding, there may still be small amount of bleeding over the next day. Return for any trouble breathing, bleeding with clots or concerns. Follow up with primary care provider in 3-5 days if needed. Return to ED sooner if any worsening or concerns. Increase oral fluids. Referrals: Caridad Sáncehz MD, [place] [Primary Care Provider] - Medical Decision Making 2005: Regarding with respiratory therapy called to bedside for trach care tube was replaced, trach site was cleaned with saline and gauze and a new dressing applied. HPI General Mode of arrival: ambulatory. Date/Time Provider Initiated Documentation: 05/19/21 19:40. Limitations to Documentation: no limitations. Information obtained by: patient, family and old records reviewed. HPI Narrative: 81-year-old female with history of diabetes, COPD, A. fib, CVA, hypokalemia, tracheostomy, presents after a coughing fit where trach tube was dislodged. Patient is on Eliquis daily there was some bleeding surrounding the tracheostomy and some dried blood noted upon initial exam. Patient has no trouble breathing lung sounds are clear to auscultation bilaterally O2 sat is 94%. They did bring a replacement tube. Related Data Home Medications Medication Instructions Recorded Confirmed guaifenesin 100 mg/5 mL oral liquid 400 mg PO BID #1000 ml 11/29/19 02/18/21 Bio-K plus 1 cap PO DAILY #90 cap 06/01/20 02/18/21 Metamucil Sugar-Free (aspart) 3.4 gm PO BID #283 gm 06/01/20 02/18/21 water for injection, sterile 10 ml PO Q6H #1 ml 06/30/20 02/18/21 mirtazapine 15 mg disintegrating 15 mg PO QHS #90 tab MDD 22.5 11/29/20 02/18/21 tablet mirtazapine 7.5 mg tablet 7.5 mg PO DAILY #90 tab MDD 22.5 11/29/20 02/18/21 water for irrigation, sterile 20 ml PO Q6H #8000 ml 12/09/20 02/18/21 metoprolol succinate 25 mg 12.5 mg PO BID #90 tab 12/29/20 02/18/21 tablet,extended release 24 hr potassium chloride 20 mEq oral 20 meq PO BID #60 ea 12/29/20 02/18/21 packet nystatin 100,000 unit/mL oral 5 ml PO TID PRN #200 ml 01/06/21 02/18/21 suspension apixaban 5 mg tablet 5 mg PO BID #180 tab 01/18/21 02/18/21 ipratropium 0.5 mg-albuterol 3 mg 3 ml IH QID PRN #180 ml 01/18/21 (2.5 mg base)/3 mL nebulization soln metoclopramide HCl 5 mg tablet 5 mg PO BID #180 tab 01/18/21 02/18/21 ipratropium bromide 42 mcg (0.06 2 spray INTRANASAL TID #15 ml 02/01/21 02/01/21 %) nasal spray ferrous sulfate 325 mg (65 mg 325 mg PO DAILY #90 tab 02/22/21 iron) tablet polyethylene glycol 3350 17 gram 17 g PO DAILY PRN #100 ea 02/24/21 oral powder packet nystatin 100,000 unit/gram topical 1 applic TOPICAL BID #60 g 04/15/21 powder furosemide 40 mg tablet 40 mg PO DAILY #90 tab 05/19/21 Previous Rx's Medication Instructions Recorded guaifenesin 100 mg/5 mL oral liquid 400 mg PO BID #1000 ml 11/29/19 Bio-K plus 1 cap PO DAILY #90 cap 06/01/20 Metamucil Sugar-Free (aspart) 3.4 gm PO BID #283 gm 06/01/20 water for injection, sterile 10 ml PO Q6H #1 ml 06/30/20 mirtazapine 15 mg disintegrating 15 mg PO QHS #90 tab MDD 22.5 11/29/20 tablet mirtazapine 7.5 mg tablet 7.5 mg PO DAILY #90 tab MDD 22.5 11/29/20 water for irrigation, sterile 20 ml PO Q6H #8000 ml 12/09/20 metoprolol succinate 25 mg 12.5 mg PO BID #90 tab 12/29/20 tablet,extended release 24 hr potassium chloride 20 mEq oral 20 meq PO BID #60 ea 12/29/20 packet nystatin 100,000 unit/mL oral 5 ml PO TID PRN #200 ml 01/06/21 suspension apixaban 5 mg tablet 5 mg PO BID #180 tab 01/18/21 ipratropium 0.5 mg-albuterol 3 mg 3 ml IH QID PRN #180 ml 01/18/21 (2.5 mg base)/3 mL nebulization soln metoclopramide HCl 5 mg tablet 5 mg PO BID #180 tab 01/18/21 ipratropium bromide 42 mcg (0.06 2 spray INTRANASAL TID #15 ml 02/01/21 %) nasal spray ferrous sulfate 325 mg (65 mg 325 mg PO DAILY #90 tab 02/22/21 iron) tablet polyethylene glycol 3350 17 gram 17 g PO DAILY PRN #100 ea 02/24/21 oral powder packet nystatin 100,000 unit/gram topical 1 applic TOPICAL BID #60 g 04/15/21 powder furosemide 40 mg tablet 40 mg PO DAILY #90 tab 05/19/21 Allergies Allergy/AdvReac Type Severity Reaction Status Date / Time atorvastatin AdvReac Intermediate pt does Unverified 03/31/21 08:55 not think she has an allergy to this med General Stated Complaint: GenMedical SUHA: 4 Review of Systems All systems reviewed & are unremarkable except as noted in HPI and below Respiratory Respiratory: Denies wheezing Comments: Dried Blood surrounding tracheostomy Allergic/Immunologic Allergic/Immunologic: Denies wheezing [facility] Medical History (Updated 05/19/21 @ 20:14 by Camryn Serrano) Adynamic ileus Anemia due to blood loss, acute Anxiety Atrial fibrillation with controlled ventricular rate Benign paroxysmal vertigo Benign paroxysmal vertigo, unspecified ear C. difficile diarrhea Cataract O.U 02/24/14; Dr. Martin left extraction 03/10/14; Dr. 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 L hip-mild acetabular spurring 2014 - severe arthritis at facet joints Lumbago Nausea and vomiting Neutrophilic leukocytosis Oral thrush Oral ulcer 12/07/16 Peripheral edema (07/31/16) Peripheral venous insufficiency (12/03/08) edema Pharyngoesophageal dysphagia Physical deconditioning Pneumonia of right lower lobe due to infectious organism Polyp of colon colonoscopy of 01/09/11-multiple polyps at multiple locations. 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 Very hard to regulate and cannot afford alternatives. Understands the risks. Repeat again - PE. 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 The tracheostomy appears healthy save for small amount of granulation tissue.02/25 Stenosis of carotid artery (01/20/16) carotid us 01/18 TMJ (temporomandibular joint disorder) right Tracheostomy hemorrhage Tracheostomy hemorrhage Transient ischemic attack (08/04/03) POS MRI R TEMPORAL LOBE. NEG ECHO 2000 Trouble swallowing Urinary incontinence (11/10/14) Vaginal lesion 03/22/16 Venous insufficiency Visual disturbance etiology unclear per -exam of 03/14/11 Vitamin D deficiency Vitamin D deficiency (03/11/09) Vulvovaginitis Surgical History Extraction of cataract 02/24/14; LEFT EYE 03/10/14; RIGHT EYE History of bilateral tubal ligation History of laryngectomy Ligation of fallopian tube Status post gastrostomy Status post tracheostomy Family History Mother , 85 Vaginal cancer Father , 74 Heart disease COPD (chronic obstructive pulmonary disease) Sister , 63 Heart disease ASHD/CHF Lung cancer Maternal Grandmother Heart disease Paternal Grandmother Diabetes Son , 40 Substance abuse Heart disease Sister No problems noted. Sister No problems noted. Son RA (rheumatoid arthritis) Daughter No problems noted. Daughter No problems noted. Paternal Grandfather , 80 No problems noted. Social History Smoking/Tobacco Use Status: Former Tobacco Use Quit Date: 06/05/01 Second Hand Exposure: Yes Smoking risk assessment performed?: Yes Alcohol Intake: former Drug use: Never Substance use type: does not use Caregiver/Support person: Yes Household members: none Housing: house Do you need help understanding health information?: Rarely Pets and animals: No Sexually active: No Current gender identity: female What is your relationship status?: How often do you talk on the phone with friends or family?: never How often do you get together with friends or relatives?: decline to answer How often do you attend yarsani or mormonism services?: decline to answer Do you belong to any clubs or organized social groups?: decline to answer Panel score (0-1 are the most socially isolated patients): 0 What type of physical activity do you participate in: decline to answer Duration: 15-30 minutes/day Frequency: 1-2 times per week Bethany/Episcopalian: Religion Special bethany needs: No Seatbelt use: always Helmet use: No Drive intox or ride w/intox patient transportation driver: No Do you feel safe at home: Yes Do you feel safe in your relationship?: Yes Exam Neck Neck: nontender and tracheostomy present (Dried blood surrounding tracheostomy, easily cleaned with sterile saline) Other: Replacement tube inserted by respiratory and dressing replaced. Resp Effort & Inspection: normal respiratory effort Auscultation: clear to auscultation bilaterally Course Vital Signs Vital signs: Vital Signs Temperature 36.6 C 05/19/21 19:47 Pulse 95 H 05/19/21 19:47 Respiratory Rate 18 05/19/21 19:47 Blood Pressure 158/89 H 05/19/21 19:47 Pulse Oximetry 96 05/19/21 19:47 Temperature 36.6 C 05/19/21 19:47 Temperature Source Temporal Artery Scan 05/19/21 19:47 Pulse 95 H 05/19/21 19:47 Respiratory Rate 18 05/19/21 19:47 Respiratory Effort 05/19/21 19:56 Respiratory Depth Normal 05/19/21 19:56 Blood Pressure 158/89 H 05/19/21 19:47 Blood Pressure Position Sitting 05/19/21 19:47 Pulse Oximetry 96 05/19/21 19:47 Oxygen Delivery Method Room Air 05/19/21 19:47 Oxygen Flow Rate 0 05/19/21 19:47 Pain Level 0 05/19/21 19:47
--- NOTE | 2021-05-19 20:09 | RESPIRATORY ---
Pt presented to emergency room with prior difficulty with trach. Inner cannula appeared bloody, but only superficially. Inner cannula was replaced, trach tie appeared loose and was tightened, Gauze surrounding trach replaced and skin around trach cleaned with sterile water. Otherwise trach appeared to be well maintained.
== END 2021-05-19 20:15 | disposition home or self-care (01) ==
PROVIDERS: Emergency Provider Registered Nurse Emergency; PCP Family Medicine
DX: Z43.0 Encounter for attention to tracheostomy (principal)
CPT/HCPCS: 99283

== ENCOUNTER 2021-06-21 02:32 | Outpatient (CLI) | payer OTHER, MEDICAID, SELFPAY ==
--- NOTE | 2021-06-21 08:00 | DI.US_ITS ---
Exam(s) US ABDOMEN LIMITED EXAM: US ABDOMEN LIMITED CLINICAL HISTORY: r/o abcess r/t feeding tube placement,r10.9,abd pain, TECHNIQUE: Ultrasound performed using standard protocol. COMPARISON: US US EXTREMITY VENOUS BI from 05/24/2020 FINDINGS: Soft tissue ultrasound was performed in the left lower quadrant region to rule out subcutaneous absce ss are other abnormality associated with feeding tube placement. No abscess was identified on this s can. If there is a high clinical suspicion of abscess additional evaluation with abdominal and pelvi c CT would be recommended. IMPRESSION: DATA REPOSITORY:
== END 2021-06-21 02:52 ==
PROVIDERS: PCP Family Medicine; Visit Provider Nurse Practitioner Family
DX: R10.9 Unspecified abdominal pain (principal)
CPT/HCPCS: 76705

== ENCOUNTER → 2021-06-23 08:47 | Outpatient (BNVA) | payer OTHER, MEDICAID, SELFPAY | PROVIDERS: PCP Family Medicine; Referring Provider Family Medicine; Visit Provider Surgery | DX: R10.9 Unspecified abdominal pain (principal); T85.598D Other mechanical complication of other gastrointestinal prosthetic devices, implants and grafts, subsequent encounter | CPT/HCPCS: 99212; 99213 ==

== ENCOUNTER 2021-07-11 16:59 | Emergency (ER) | payer OTHER, MEDICAID, SELFPAY ==
[2021-07-11 17:08] VITALS: BP 142/58; PULSE 91; TEMP 36.8; O2SAT 94
--- NOTE | 2021-07-11 17:15 | DI.CT_ITS ---
Exam(s) CT NECK W EXAM: CT NECK W CLINICAL HISTORY: ?foreign body. TECHNIQUE: Imaging Protocol: Axial computed tomography images with coronal and sagittal reformatted images were created and reviewed CONTRAST MATERIAL: Intravenous: Omnipaque 350 Contrast volume:100 ml contrast route:IV - Oral: no COMPARISON: CT CT NECK W from 05/06/2020 FINDINGS: Parotids/submandibular/thyroid gland: Normal. Lymphadenopathy: There is scattered lymph nodes seen along the level one to level three all measurin g less than 8 mm in short axis diameter which are physiologic in nature. Carotids/Jugular: Within normal limits. Soft tissues: The floor the mouth is unremarkable. Surgical clips on both sides of the neck. Statu s post laryngectomy and tracheostomy. Right thyroid not seen.. Images through both lung apices show motion and emphysematous changes. No radio-opaque foreign body is seen. Bones: Kyphosis and degenerative changes. No fracture or gross destructive lesion. IMPRESSION: No visible radiopaque foreign body. Status post extensive surgery with laryngectomy and tracheostomy . RADIATION DOSE DELIVERED: 530.67mGy.cm Total DLP DATA REPOSITORY: All CT scans at this facility are submitted to the National Radiology Data Registry (NRDR) Dose Index Registry (DIR) with the [employer] ([employer]). RADIATION OPTIMIZATION: All CT scans at this facility use at least one of these dose optimization te chniques: automated exposure control; mA and/or kV adjustment per patient size (includes targeted exa ms where dose is matched to clinical indication); or iterative reconstruction.
--- NOTE | 2021-07-11 17:22 | ED.GENADUL_ITS ---
Discharge Plan Disposition Patient Disposition: HOME Condition: Stable Discharge Details Clinical Impression: Foreign body sensation in throat Primary Care Provider: Caridad Sánchez ED Provider: Gustavo Berman Home Meds and New Rx's Prescriptions: Continued ipratropium bromide 42 mcg (0.06 %) spray,non-aerosol 2 spray intranasal TID Qty: 15 RF: 5 mirtazapine [Remeron SolTab] 15 mg tablet,disintegrating 15 mg PO QHS MDD 22.5 Qty: 90 RF: 6 mirtazapine 7.5 mg tablet 7.5 mg PO DAILY MDD 22.5 Qty: 90 RF: 4 water for irrigation, sterile Solution 20 ml PO Q6H Qty: 8000 RF: 4 metoprolol succinate 25 mg tablet extended release 24 hr 12.5 mg PO BID Qty: 90 RF: 4 Eliquis 5 mg tablet 5 mg PO BID Qty: 180 RF: 12 ipratropium-albuterol 0.5 mg-3 mg(2.5 mg base)/3 mL solution for nebulization 3 ml IH QID PRN (Reason: wheezing. J44.9) Qty: 180 RF: 8 metoclopramide HCl [Reglan] 5 mg tablet 5 mg PO BID Qty: 180 RF: 4 polyethylene glycol 3350 [Miralax] 17 gram powder in packet 17 g PO DAILY PRN (Reason: constipation) Qty: 100 RF: 0 nystatin 100,000 unit/gram powder 1 applic topical BID Qty: 60 RF: 4 furosemide 40 mg tablet 40 mg PO DAILY Qty: 90 RF: 3 ferrous sulfate 325 mg (65 mg iron) tablet 325 mg PO DAILY Qty: 90 RF: 6 potassium chloride 20 mEq packet 20 meq PO BID Qty: 60 RF: 4 Metamucil Sugar-Free (aspart) 3.4 gram/5.8 gram Powder 3.4 gm PO BID Qty: 283 RF: 0 Bio-K plus 50 billion cell Capsule,Delayed Release(Dr/Ec) 1 cap PO DAILY Qty: 90 RF: 0 water for injection, sterile Solution 10 ml PO Q6H Qty: 1 RF: 0 Discharge Instructions Additional Instructions: At this time the CAT scan shows no evidence of a significant food impaction in your throat. Please try to stick with a liquid or soft food diet for the next week. Follow-up closely with your family doctor and your ENT specialist for reassessment. If you notice any worsening of your symptoms, or any new symptoms such as difficulty swallowing, difficulty drinking, vomiting, diarrhea, fever, chills, shortness of breath, chest pain, numbness, weakness, or fainting , please return immediately to the emergency department for reevaluation. Please follow up with your primary care provider as soon as possible for reassessment and reevaluation. As always, it was a pleasure participating in your medical care today. 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 She had apple pie Sunday and since them she has had hard time swallowing food and when I ask where she feels the possible apple is in her throat she points to the butler apple area. She has a trach in place with no secretions, is able to swallow water when asked during my exam and is able to get it down. Son reports that she has this issue every once in a while and normally resolves on it's own. Suspect she could have irritation from recently starting eating again but will image the neck to evaluate for possible foreign body, unlikely abscess or epiglottitis. Differential Diagnosis Differential Diagnosis: throat foreign body, pharyngitis Medical Records Medical records reviewed: Yes I reviewed the patient's medical records. <Gustavo Berman DO - Last Filed: 07/11/21 20:34> Patient signed out to me by my colleague Dr. Paul. Please refer to his HPI, physical exam assessment and plan. At time of transition of care we are waiting CT scans for concern for food impaction. Clinically the patient does not show clinical evidence of food impaction. The patient is able to drink water here without difficulty. CT scan results have returned and show no evidence of acute process or change or significant obstruction. I went to reassess the patient again clinically and she looks well shows no signs of difficulty controlling secretions or swallowing. Recommend liquid diet for the next few days, and close follow-up with PCP and ENT. Discussed red flags which to return. I have extensively reviewed the treatment plan and discharge instructions with the patient and their family. I have addressed all patient concerns at this time. The patient and family was made aware of what symptoms to monitor for that would warrant a return to the emergency department. Discussed the plan with the patient and family, they demonstrate verbal understanding and agreement with our assessment and plan at this time. The documentation in this chart was dictated using [employer] dictation software. Please excuse any dictation errors. FINDINGS: Nasopharynx: Unremarkable. Oropharynx: No significant tonsillar enlargement. Hypopharynx: Postsurgical changes noted. Larynx: Postsurgical changes noted status post tracheostomy and laryngectomy. Retropharyngeal space: Unremarkable. Submandibular/Parotid glands: Normal. Glands are normal in size. Thyroid: A right thyroid lobe is not seen, which may be postsurgical. Lymph nodes: No lymphadenopathy. Trachea: A tracheostomy is noted in place. Lungs: Centrilobular emphysema noted in the lungs. Esophagus: Postsurgical changes are noted in the region of the upper esophagus. No definite foreign body seen. Bones/joints: No acute fracture. Soft tissues: Surgical clips noted in the bilateral neck subcutaneous tissues. IMPRESSION: 1. Postsurgical changes in the esophagus, without evidence of a definite foreign body. A nonemergent swallow study may be considered for further evaluation. 2. Tracheostomy and laryngectomy changes noted. Thank you for allowing us to participate in the care of your patient. Dictated and Authenticated by: Mildred Goldman [facility] <Sb Paul MD - Last Filed: 07/11/21 19:33> General Date/Time Provider Initiated Documentation: 07/11/21 17:11 . Information obtained by: patient and family . History of Present Illness 81 year old F presents to the emergency department with the chief complaint of feels she has apple in her throat, described as moderate, Patient started experiencing this day(s) (3) and it has been constant. No relieving factors improve symptom(s), No exacerbating factors reported . Patient notes no other symptoms.. Patient did receive the following treatments prior to arrival, none Related Data Home Medications Medication Instructions Recorded Confirmed Bio-K plus 1 cap PO DAILY #90 cap 06/01/20 07/11/21 Metamucil Sugar-Free (aspart) 3.4 gm PO BID #283 gm 06/01/20 07/11/21 water for injection, sterile 10 ml PO Q6H #1 ml 06/30/20 07/11/21 mirtazapine 15 mg disintegrating 15 mg PO QHS #90 tab MDD 22.5 11/29/20 07/11/21 tablet mirtazapine 7.5 mg tablet 7.5 mg PO DAILY #90 tab MDD 22.5 11/29/20 07/11/21 water for irrigation, sterile 20 ml PO Q6H #8000 ml 12/09/20 07/11/21 metoprolol succinate 25 mg 12.5 mg PO BID #90 tab 12/29/20 07/11/21 tablet,extended release 24 hr apixaban 5 mg tablet 5 mg PO BID #180 tab 01/18/21 07/11/21 ipratropium 0.5 mg-albuterol 3 mg 3 ml IH QID PRN #180 ml 01/18/21 07/11/21 (2.5 mg base)/3 mL nebulization soln metoclopramide HCl 5 mg tablet 5 mg PO BID #180 tab 01/18/21 07/11/21 ipratropium bromide 42 mcg (0.06 2 spray INTRANASAL TID #15 ml 02/01/21 07/11/21 %) nasal spray polyethylene glycol 3350 17 gram 17 g PO DAILY PRN #100 ea 02/24/21 07/11/21 oral powder packet nystatin 100,000 unit/gram topical 1 applic TOPICAL BID #60 g 04/15/21 07/11/21 powder furosemide 40 mg tablet 40 mg PO DAILY #90 tab 05/19/21 07/11/21 ferrous sulfate 325 mg (65 mg 325 mg PO DAILY #90 tab 05/31/21 07/11/21 iron) tablet potassium chloride 20 mEq oral 20 meq PO BID #60 ea 06/30/21 07/11/21 packet Previous Rx's Medication Instructions Recorded Bio-K plus 1 cap PO DAILY #90 cap 06/01/20 Metamucil Sugar-Free (aspart) 3.4 gm PO BID #283 gm 06/01/20 water for injection, sterile 10 ml PO Q6H #1 ml 06/30/20 mirtazapine 15 mg disintegrating 15 mg PO QHS #90 tab MDD 22.5 11/29/20 tablet mirtazapine 7.5 mg tablet 7.5 mg PO DAILY #90 tab MDD 22.5 11/29/20 water for irrigation, sterile 20 ml PO Q6H #8000 ml 12/09/20 metoprolol succinate 25 mg 12.5 mg PO BID #90 tab 12/29/20 tablet,extended release 24 hr apixaban 5 mg tablet 5 mg PO BID #180 tab 01/18/21 ipratropium 0.5 mg-albuterol 3 mg 3 ml IH QID PRN #180 ml 01/18/21 (2.5 mg base)/3 mL nebulization soln metoclopramide HCl 5 mg tablet 5 mg PO BID #180 tab 01/18/21 ipratropium bromide 42 mcg (0.06 2 spray INTRANASAL TID #15 ml 02/01/21 %) nasal spray polyethylene glycol 3350 17 gram 17 g PO DAILY PRN #100 ea 02/24/21 oral powder packet nystatin 100,000 unit/gram topical 1 applic TOPICAL BID #60 g 04/15/21 powder furosemide 40 mg tablet 40 mg PO DAILY #90 tab 05/19/21 ferrous sulfate 325 mg (65 mg 325 mg PO DAILY #90 tab 05/31/21 iron) tablet potassium chloride 20 mEq oral 20 meq PO BID #60 ea 06/30/21 packet Allergies Allergy/AdvReac Type Severity Reaction Status Date / Time atorvastatin AdvReac Intermediate pt does Verified 07/11/21 17:14 not think she has an allergy to this med General Stated Complaint: ThroatFB SUHA: 2 Review of Systems <Sb Paul MD - Last Filed: 07/11/21 19:33> All systems reviewed & are unremarkable except as noted in HPI and below Constitutional Constitutional: Denies chills and Denies fever(s) Cardiovascular Cardiovascular: Denies dyspnea Respiratory Respiratory: Denies cough and Denies dyspnea Gastrointestinal Gastrointestinal: Denies abdominal pain, Denies nausea and Denies vomiting Musculoskeletal Musculoskeletal: Denies joint swelling PFS <Sb Paul MD - Last Filed: 07/11/21 19:33> Medical History Adynamic ileus Anemia due to blood loss, acute Anxiety Atrial fibrillation with controlled ventricular rate Benign paroxysmal vertigo Benign paroxysmal vertigo, unspecified ear C. difficile diarrhea Cataract O.U 02/24/14; Dr. Martin left extraction 03/10/14; Dr. 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 L hip-mild acetabular spurring 2014 - severe arthritis at facet joints Lumbago Nausea and vomiting Neutrophilic leukocytosis Oral thrush Oral ulcer 12/07/16 Peripheral edema (07/31/16) Peripheral venous insufficiency (12/03/08) edema Pharyngoesophageal dysphagia Physical deconditioning Pneumonia of right lower lobe due to infectious organism Polyp of colon colonoscopy of 01/09/11-multiple polyps at multiple locations. 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 Very hard to regulate and cannot afford alternatives. Understands the risks. Repeat again - PE. 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 The tracheostomy appears healthy save for small amount of granulation tissue.02/25 Stenosis of carotid artery (01/20/16) carotid us 01/18 TMJ (temporomandibular joint disorder) right Tracheostomy hemorrhage Tracheostomy hemorrhage Transient ischemic attack (08/04/03) POS MRI R TEMPORAL LOBE. NEG ECHO 2000 Trouble swallowing Urinary incontinence (11/10/14) Vaginal lesion 03/22/16 Venous insufficiency Visual disturbance etiology unclear per -exam of 03/14/11 Vitamin D deficiency Vitamin D deficiency (03/11/09) Vulvovaginitis Surgical History Extraction of cataract 02/24/14; LEFT EYE 03/10/14; RIGHT EYE History of bilateral tubal ligation History of laryngectomy Ligation of fallopian tube Status post gastrostomy Status post tracheostomy Family History Mother , 85 Vaginal cancer Father , 74 Heart disease COPD (chronic obstructive pulmonary disease) Sister , 63 Heart disease ASHD/CHF Lung cancer Maternal Grandmother Heart disease Paternal Grandmother Diabetes Son , 40 Substance abuse Heart disease Sister No problems noted. Sister No problems noted. Son RA (rheumatoid arthritis) Daughter No problems noted. Daughter No problems noted. Paternal Grandfather , 80 No problems noted. Social History Smoking/Tobacco Use Status: Former Tobacco Use Quit Date: 06/05/01 Second Hand Exposure: Yes Smoking risk assessment performed?: Yes Alcohol Intake: former Drug use: Never Substance use type: does not use Caregiver/Support person: Yes Household members: none Housing: house Do you need help understanding health information?: Rarely Pets and animals: No Sexually active: No Current gender identity: female What is your relationship status?: How often do you talk on the phone with friends or family?: never How often do you get together with friends or relatives?: decline to answer How often do you attend latter-day or mu-ism services?: decline to answer Do you belong to any clubs or organized social groups?: decline to answer Panel score (0-1 are the most socially isolated patients): 0 What type of physical activity do you participate in: decline to answer Duration: 15-30 minutes/day Frequency: 1-2 times per week Bethany/Caodaism: Lutheran Special bethany needs: No Seatbelt use: always Helmet use: No Drive intox or ride w/intox livery car driver: No Do you feel safe at home: Yes Do you feel safe in your relationship?: Yes Exam <Sb Paul MD - Last Filed: 07/11/21 19:33> Const General: no acute distress Orientation: alert HENVA Head: normal to inspection Ears: external ears normal General nose exam: external nose normal Mouth: moist mucous membranes Eyes General: appearance normal, both eyes and all related structures Neck Neck: no lymphadenopathy and no JVD Resp Effort & Inspection: normal respiratory effort and able to speak in complete sentences Cardio Rate: regular rate Skin General skin exam: no rashes or lesions noted Neuro General: patient alert and patient oriented x3 Extrem General: normal to inspection Psych Mental Status: mental status grossly normal Course <Sb Paul MD - Last Filed: 07/11/21 19:33> Vital Signs Vital signs: Vital Signs Temperature 36.8 C 07/11/21 17:08 Pulse 91 H 07/11/21 17:08 Blood Pressure 142/58 H 07/11/21 17:08 Pulse Oximetry 94 07/11/21 17:08 Temperature 36.8 C 07/11/21 17:08 Temperature Source Temporal Artery Scan 07/11/21 17:08 Pulse 91 H 07/11/21 17:08 Respiratory Effort Non-Labored 07/11/21 17:12 Blood Pressure 142/58 H 07/11/21 17:08 Blood Pressure Position Sitting 07/11/21 17:08 Pulse Oximetry 94 07/11/21 17:08 Oxygen Delivery Method Room Air 07/11/21 17:08 Oxygen Flow Rate 0 07/11/21 17:08 Pain Level 0 07/11/21 17:08 Sign Out <Sb Paul MD - Last Filed: 07/11/21 19:33> Sign Out Data: Sign Out Comment: has trach and a few weeks ago had g tube removed, came in because since eating apple pie sunday feels it is stuck in the area of her btuler apple. Is able to swallow water. Pending CT results Last updated by Sb Paul MD at 07/11/21 19:14
[2021-07-11 18:22] LABS: INR 1.1 (0.9-1.1)
[2021-07-11 18:35] LABS: ALT 20 U/L (14-59); AST 22 U/L (15-37); Alkaline Phosphatase 107 U/L (46-116); Anion Gap 10.8 mmol/L (3-11); BUN 16 mg/dL (7-18); Bilirubin, Total 0.6 mg/dL (0.2-1.0); CO2 24.2 mmol/L (21.0-32.0); Calcium 8.5 mg/dL (8.5-10.1); Chloride 105 mmol/L (98-107); Estimated GFR 52.95 (mL/min/1.73m2); Glucose 99 mg/dL (74-106); Potassium 3.7 mmol/L (3.5-5.1); Sodium 140 mmol/L (136-145); Total Protein 7.9 g/dL (6.4-8.2)
[2021-07-11 18:38] LABS: PTT Activated 25.2 sec (21.0-27.5)
[2021-07-11 18:40] LABS: Abs Immature Grans 0.03 10^3/uL (0.0-0.06); Absolute Basophil Count 0.04 10^3/uL (0.0-0.2); Absolute Eosinophil Count 0.07 10^3/uL (0.0-0.7); Absolute Lymphocyte Count 1.92 10^3/uL (1.2-3.4); Absolute Monocyte Count 0.76 10^3/uL (0.1-0.8); Absolute Neutrophil Count 5.42 10^3/uL (1.2-6.7); Basophils % 0.5; Eosinophils % 0.8; HCT 38.2 % (36.0-46.0); HGB 12.4 g/dL (11.2-15.7); Immature Grans % 0.4; Lymphocytes % 23.3; MCH 30.8 pg (27.0-33.0); MCHC 32.5 % (32.0-36.0); MPV 9.5 fL (8.0-11.0); Monocytes % 9.2; Neutrophils % 65.8; Nucleated RBC 0 %; Platelet Count 279 10^3/uL (130-400); RBC 4.02 10^6/uL (3.93-5.22); RDW-SD 45.9 fL; WBC 8.24 10^3/uL (4.4-10.8)
--- NOTE | 2021-07-11 20:19 | DI.VRAD_ITS ---
PROCEDURE INFORMATION: Exam: CT Neck With Contrast Exam date and time: 07/11/2021 5:20 PM Age: 81 years old Clinical indication: Pain; Other: ? Fb; Prior surgery; Surgery date: 6+ months; Surgery type: Tracheostomy, laryngectomy; Patient HX: Feel like a fb for 3 days TECHNIQUE: Imaging protocol: Computed tomography images of the neck with contrast. Radiation optimization: All CT scans at this facility use at least one of these dose optimization techniques: automated exposure control; mA and/or kV adjustment per patient size (includes targeted exams where dose is matched to clinical indication); or iterative reconstruction. Contrast material: OMNIPAQUE 350; Contrast volume: 100 ml; Contrast route: INTRAVENOUS (IV); COMPARISON: CT NECK W 05/06/2020 9:42 AM FINDINGS: Nasopharynx: Unremarkable. Oropharynx: No significant tonsillar enlargement. Hypopharynx: Postsurgical changes noted. Larynx: Postsurgical changes noted status post tracheostomy and laryngectomy. Retropharyngeal space: Unremarkable. Submandibular/Parotid glands: Normal. Glands are normal in size. Thyroid: A right thyroid lobe is not seen, which may be postsurgical. Lymph nodes: No lymphadenopathy. Trachea: A tracheostomy is noted in place. Lungs: Centrilobular emphysema noted in the lungs. Esophagus: Postsurgical changes are noted in the region of the upper esophagus. No definite foreign body seen. Bones/joints: No acute fracture. Soft tissues: Surgical clips noted in the bilateral neck subcutaneous tissues. IMPRESSION: 1. Postsurgical changes in the esophagus, without evidence of a definite foreign body. A nonemergent swallow study may be considered for further evaluation. 2. Tracheostomy and laryngectomy changes noted. Dictated and Authenticated by: Leyla Valdes MD. Ordering:KATHRYN Basurto MD
[2021-07-11 20:52] VITALS: BP 154/63; PULSE 80; RESP 20; TEMP 36.3; O2SAT 95
== END 2021-07-11 20:46 | disposition home or self-care (01) ==
PROVIDERS: Emergency Medicine; Emergency Provider Student in an Organized Health Care Education/Training Program; PCP Family Medicine
DX: R09.89 Other specified symptoms and signs involving the circulatory and respiratory systems (principal); I48.91 Unspecified atrial fibrillation; Z93.0 Tracheostomy status
CPT/HCPCS: 36415; 70491; 80053; 99285; 85025; 85610; 85730; 99283

== ENCOUNTER 2021-08-02 07:55 | Emergency (ER) | payer OTHER, MEDICAID, SELFPAY ==
[2021-08-02 07:58] VITALS: BP 139/54; TEMP 36.7; O2SAT 95
--- NOTE | 2021-08-02 08:07 | ED.GENADUL_ITS ---
Discharge Plan Disposition Patient Disposition: HOME Condition: Stable Discharge Details Clinical Impression: Acute UTI Primary Care Provider: Caridad Sánchez ED Provider: Camryn Serrano Home Meds and New Rx's Prescriptions: Continued ipratropium bromide 42 mcg (0.06 %) spray,non-aerosol 2 spray intranasal TID Qty: 15 RF: 5 mirtazapine [Remeron SolTab] 15 mg tablet,disintegrating 15 mg PO QHS MDD 22.5 Qty: 90 RF: 6 mirtazapine 7.5 mg tablet 7.5 mg PO DAILY MDD 22.5 Qty: 90 RF: 4 metoprolol succinate 25 mg tablet extended release 24 hr 12.5 mg PO BID Qty: 90 RF: 4 Eliquis 5 mg tablet 5 mg PO BID Qty: 180 RF: 12 ipratropium-albuterol 0.5 mg-3 mg(2.5 mg base)/3 mL solution for nebulization 3 ml IH QID PRN (Reason: wheezing. J44.9) Qty: 180 RF: 8 metoclopramide HCl [Reglan] 5 mg tablet 5 mg PO BID Qty: 180 RF: 4 nystatin 100,000 unit/gram powder 1 applic topical BID Qty: 60 RF: 4 furosemide 40 mg tablet 40 mg PO DAILY Qty: 90 RF: 3 No Action water for irrigation, sterile Solution 20 ml PO Q6H Qty: 8000 RF: 4 polyethylene glycol 3350 [Miralax] 17 gram powder in packet 17 g PO DAILY PRN (Reason: constipation) Qty: 100 RF: 0 ferrous sulfate 325 mg (65 mg iron) tablet 325 mg PO DAILY Qty: 90 RF: 6 potassium chloride 20 mEq packet 20 meq PO BID Qty: 60 RF: 4 Metamucil Sugar-Free (aspart) 3.4 gram/5.8 gram Powder 3.4 gm PO BID Qty: 283 RF: 0 Bio-K plus 50 billion cell Capsule,Delayed Release(Dr/Ec) 1 cap PO DAILY Qty: 90 RF: 0 water for injection, sterile Solution 10 ml PO Q6H Qty: 1 RF: 0 Discharge Instructions Instructions: Urinary Tract Infection in Older Adults (ED) Additional Instructions: Please take the antibiotics twice daily as directed until the antibiotic is finished. You were given the first dose here in the department today. You do qualify for home physical therapy visits. We will set that up. Was ordered today. Braulio Michaud should be contacting you for physical therapy to follow you in the home. It was found that you have a urinary tract infection today. You can also get lidocaine patches [id number]. Take Tylenol every 4-6 hours as needed for back pain. Follow up with primary care provider in 3-5 days. Return to ED sooner if any worsening or concerns. Increase oral fluids. Referrals: Caridad Sánchez MD, [place] [Primary Care Provider] - 5 days Braulio Miller,[facility] [OTHER] - Discharge Data Discharge Date/Time-TO BE ENTERED AT DEPARTURE: 08/02/21 11:53 Medical Decision Making 81-year-old female presents to the ER via EMS chief complaint of right lower back pain which was nontraumatic. This is been ongoing for approximately 2 days she does have a history of sciatica. She was given Tylenol crushed up prior to arrival. Patient denies any loss of bowel or bladder control no constipation or urinary hesitancy. She normally does use a walker to ambulate at home. Per her son Abdulaziz who is her bureau chief he reports that she was having a hard time getting out of her chair this morning which prompted his call to 911. She denies any fever chills. Vital signs are within normal limits upon initial exam she is afebrile. Abdomen is soft nontender. She does have some weakness noted to her right lower extremity. Per the son she used to have physical therapy coming into the home which she no longer does. She does have a past medical history of adynamic ileus, atrial fibrillation, vertigo, COPD, CVA, low back pain, vocal cord cancer, surgical history includes laryngectomy, tubal ligation, gastrostomy. Urinalysis, clean-catch and L-spine x-ray ordered. Patient denies any red flags or concern for cauda equina. She does have chronic lumbago and back pain on record review. 07 01: Spoke with Maribel alcazar with care management regarding inquiry into patient's home health care status and if patient is having physical therapy at home on a regular basis. Patient is a DNR/DNI patient with history of mobility impairment and physical deconditioning normally uses a walker at home with wheelchair to follow based on PT report from Braulio Michaud [place] July [id number]: Spoke with Irma with physical therapy who agrees to come down and do an evaluation approximately 10 minutes. Patient usually uses a walker. Patient does have a UTI which may explain her generalized weakness. X-rays were limited due to positioning. Will consider ordering home health with physical therapy if patient qualifies. EXAM: XR LUMBAR SPINE AP, LAT COMPARISON: CR,XR XR ABD FLAT UPRIGHT PA CHEST from 02/18/2021 FINDINGS: Examination limited by patient body habitus and patient positioning. BONES: No fracture or destructive lesion. Vertebral bodies are unremarkable. Mild degenerative changes of the facets are seen in the lower lumbar spine. DISKS: Multilevel narrowing of the disc spaces. Hypertrophic changes are seen at the endplates. ALIGNMENT: There is a right convex lower thoracic and lumbar scoliosis. No spondylolysis or spondylolisthesis. SOFT TISSUE: Atherosclerosis. IMPRESSION: 1. Examination limited by patient body habitus and patient positioning. 2. No definite acute fracture or subluxation. 3. [id number] degenerative changes in the lumbar spine. Right convex lumbar scoliosis. Physical therapy evaluation was performed. Per physical therapy patient passed and is able to have physical therapy at home. Home health order signed for physical therapy. Discussed plan with son who verbalizes understanding. Patient was discharged in hemodynamically stable condition improved pain with lidocaine patches upon discharge. Instructed to follow-up with PCP. This text was generated using [employer] system, please disregard any oddities of phrase or misspellings. HPI General Mode of arrival: EMS . Date/Time Provider Initiated Documentation: 08/02/21 08:01 . Limitations to Documentation: language barrier (Trach and voice box) . Information obtained by: patient, EMS, RN notes reviewed and old records reviewed . HPI Narrative: 81-year-old female presents to the ER via EMS chief complaint of right lower back pain which was nontraumatic. This is been ongoing for approximately 2 days she does have a history of sciatica. She was given Tylenol crushed up prior to arrival. Patient denies any loss of bowel or b ladder control no constipation or urinary hesitancy. She normally does use a walker to ambulate at home. Per her son Abdulaziz who is her bureau chief he reports that she was having a hard time getting out of her chair this morning which prompted his call to 911. She denies any fever chills. Vital signs are within normal limits upon initial exam she is afebrile. Abdomen is soft nontender. She does have some weakness noted to her right lower extremity. Per the son she used to have physical therapy coming into the home which she no longer does. She does have a past medical history of adynamic ileus, atrial fibrillation, vertigo, COPD, CVA, low back pain, vocal cord cancer, surgical history includes laryngectomy, tubal ligation, gastrostomy. Related Data Home Medications Medication Instructions Recorded Confirmed Bio-K plus 1 cap PO DAILY #90 cap 06/01/20 07/28/21 Metamucil Sugar-Free (aspart) 3.4 gm PO BID #283 gm 06/01/20 07/28/21 water for injection, sterile 10 ml PO Q6H #1 ml 06/30/20 07/28/21 mirtazapine 15 mg disintegrating 15 mg PO QHS #90 tab MDD 22.5 11/29/20 07/28/21 tablet mirtazapine 7.5 mg tablet 7.5 mg PO DAILY #90 tab MDD 22.5 11/29/20 07/28/21 water for irrigation, sterile 20 ml PO Q6H #8000 ml 12/09/20 07/28/21 metoprolol succinate 25 mg 12.5 mg PO BID #90 tab 12/29/20 07/28/21 tablet,extended release 24 hr apixaban 5 mg tablet 5 mg PO BID #180 tab 01/18/21 07/28/21 ipratropium 0.5 mg-albuterol 3 mg 3 ml IH QID PRN #180 ml 01/18/21 07/28/21 (2.5 mg base)/3 mL nebulization soln metoclopramide HCl 5 mg tablet 5 mg PO BID #180 tab 01/18/21 07/28/21 ipratropium bromide 42 mcg (0.06 2 spray INTRANASAL TID #15 ml 02/01/21 07/28/21 %) nasal spray polyethylene glycol 3350 17 gram 17 g PO DAILY PRN #100 ea 02/24/21 07/28/21 oral powder packet nystatin 100,000 unit/gram topical 1 applic TOPICAL BID #60 g 04/15/21 07/28/21 powder furosemide 40 mg tablet 40 mg PO DAILY #90 tab 05/19/21 07/28/21 ferrous sulfate 325 mg (65 mg 325 mg PO DAILY #90 tab 05/31/21 07/28/21 iron) tablet potassium chloride 20 mEq oral 20 meq PO BID #60 ea 06/30/21 07/28/21 packet Previous Rx's Medication Instructions Recorded Bio-K plus 1 cap PO DAILY #90 cap 06/01/20 Metamucil Sugar-Free (aspart) 3.4 gm PO BID #283 gm 06/01/20 water for injection, sterile 10 ml PO Q6H #1 ml 06/30/20 mirtazapine 15 mg disintegrating 15 mg PO QHS #90 tab MDD 22.5 11/29/20 tablet mirtazapine 7.5 mg tablet 7.5 mg PO DAILY #90 tab MDD 22.5 11/29/20 water for irrigation, sterile 20 ml PO Q6H #8000 ml 12/09/20 metoprolol succinate 25 mg 12.5 mg PO BID #90 tab 12/29/20 tablet,extended release 24 hr apixaban 5 mg tablet 5 mg PO BID #180 tab 01/18/21 ipratropium 0.5 mg-albuterol 3 mg 3 ml IH QID PRN #180 ml 01/18/21 (2.5 mg base)/3 mL nebulization soln metoclopramide HCl 5 mg tablet 5 mg PO BID #180 tab 01/18/21 ipratropium bromide 42 mcg (0.06 2 spray INTRANASAL TID #15 ml 02/01/21 %) nasal spray polyethylene glycol 3350 17 gram 17 g PO DAILY PRN #100 ea 02/24/21 oral powder packet nystatin 100,000 unit/gram topical 1 applic TOPICAL BID #60 g 04/15/21 powder furosemide 40 mg tablet 40 mg PO DAILY #90 tab 05/19/21 ferrous sulfate 325 mg (65 mg 325 mg PO DAILY #90 tab 05/31/21 iron) tablet potassium chloride 20 mEq oral 20 meq PO BID #60 ea 06/30/21 packet Allergies Allergy/AdvReac Type Severity Reaction Status Date / Time atorvastatin AdvReac Intermediate pt does Verified 08/02/21 08:03 not think she has an allergy to this med General Stated Complaint: Nk/Back Pain SUHA: 3 Review of Systems All systems reviewed & are unremarkable except as noted in HPI and below [facility] Medical History Adynamic ileus Anemia due to blood loss, acute Anxiety Atrial fibrillation with controlled ventricular rate Benign paroxysmal vertigo Benign paroxysmal vertigo, unspecified ear C. difficile diarrhea Cataract O.U 02/24/14; Dr. Martin left extraction 03/10/14; Dr. 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 L hip-mild acetabular spurring 2014 - severe arthritis at facet joints Lumbago Nausea and vomiting Neutrophilic leukocytosis Oral thrush Oral ulcer 12/07/16 Peripheral edema (07/31/16) Peripheral venous insufficiency (12/03/08) edema Pharyngoesophageal dysphagia Physical deconditioning Pneumonia of right lower lobe due to infectious organism Polyp of colon colonoscopy of 01/09/11-multiple polyps at multiple locations. 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 Very hard to regulate and cannot afford alternatives. Understands the risks. Repeat again - PE. 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 The tracheostomy appears healthy save for small amount of granulation tissue.02/25 Stenosis of carotid artery (01/20/16) carotid us 01/18 TMJ (temporomandibular joint disorder) right Tracheostomy hemorrhage Tracheostomy hemorrhage Transient ischemic attack (08/04/03) POS MRI R TEMPORAL LOBE. NEG ECHO 2001 Trouble swallowing Urinary incontinence (11/10/14) Vaginal lesion 03/22/16 Venous insufficiency Visual disturbance etiology unclear per -exam of 03/14/11 Vitamin D deficiency Vitamin D deficiency (03/11/09) Vulvovaginitis Surgical History Extraction of cataract 02/24/14; LEFT EYE 03/10/14; RIGHT EYE History of bilateral tubal ligation History of laryngectomy Ligation of fallopian tube Status post gastrostomy Status post tracheostomy Family History Mother , 85 Vaginal cancer Father , 74 Heart disease COPD (chronic obstructive pulmonary disease) Sister , 63 Heart disease ASHD/CHF Lung cancer Maternal Grandmother Heart disease Paternal Grandmother Diabetes Son , 40 Substance abuse Heart disease Sister No problems noted. Sister No problems noted. Son RA (rheumatoid arthritis) Daughter No problems noted. Daughter No problems noted. Paternal Grandfather , 80 No problems noted. Social History Smoking/Tobacco Use Status: Former Tobacco Use Quit Date: 06/05/01 Second Hand Exposure: Yes Smoking risk assessment performed?: Yes Alcohol Intake: former Drug use: Never Substance use type: does not use Caregiver/Support person: Yes Household members: none Housing: house Do you need help understanding health information?: Rarely Pets and animals: No Sexually active: No Current gender identity: female What is your relationship status?: How often do you talk on the phone with friends or family?: never How often do you get together with friends or relatives?: decline to answer How often do you attend tenriism or orthodox services?: decline to answer Do you belong to any clubs or organized social groups?: decline to answer Panel score (0-1 are the most socially isolated patients): 0 What type of physical activity do you participate in: decline to answer Duration: 15-30 minutes/day Frequency: 1-2 times per week Bethany/Cheondoism: Alevism Special bethany needs: No Seatbelt use: always Helmet use: No 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 Appears stated age. Normal body habitus. Nonverbal. Uses a electronic voice box Head: Normocephalic, no trauma. Eyes: Pupils PERRLA, Red reflex noted, EOM's intact. Eyelids symmetrical without lesions, discharge, or swelling. ENT: Tracheostomy tube noted no surrounding erythema, drainage. Chest: RRR, Normal S1, S2, distal pulses intact. Resp: Lungs clear to auscultation bilaterally, no wheezes, rales, or rhonchi. Musculoskeletal: No midline CT or L-spine tenderness no crepitus with palpation. Does have some paraspinous tenderness noted on the right side. She reports ago down the right buttocks. She does have some weakness noted to the right lower extremity. Is able to bend her right knee. Generalized weakness weakness greater right lower extremity. Skin: No suspicious rashes or lesions. Capillary refill less than 2 sec. Neurologic: Cranial nerves II-XII intact. Alert and oriented x 3. Hematologic/Lymphatic: No ecchymosis, no lymphadenopathy. Course Vital Signs Vital signs: Vital Signs Temperature 36.7 C 08/02/21 07:58 Blood Pressure 139/54 L 08/02/21 07:58 Pulse Oximetry 95 08/02/21 07:58 Temperature 36.7 C 08/02/21 07:58 Temperature Source Skin 08/02/21 07:58 Respiratory Effort 08/02/21 08:03 Blood Pressure 139/54 L 08/02/21 07:58 Blood Pressure Position Supine 08/02/21 07:58 Pulse Oximetry 95 08/02/21 07:58 Oxygen Delivery Method Room Air 08/02/21 07:58 Oxygen Flow Rate 0 08/02/21 07:58 Pain Level 6 08/02/21 07:58
--- NOTE | 2021-08-02 08:15 | DI.RAD_ITS ---
Exam(s) XR LUMBAR SPINE AP, LAT EXAM: XR LUMBAR SPINE AP, LAT CLINICAL HISTORY: Lower back pain, Hx sciatica. TECHNIQUE: 2D digital imaging was performed of the lumbar spine. Six images were obtained. AP and lateral views were obtained. COMPARISON: CR,XR XR ABD FLAT UPRIGHT PA CHEST from 02/18/2021 FINDINGS: Examination limited by patient body habitus and patient positioning. BONES: No fracture or destructive lesion. Vertebral bodies are unremarkable. Mild degenerative change s of the facets are seen in the lower lumbar spine. DISKS: Multilevel narrowing of the disc spaces. Hypertrophic changes are seen at the endplates. ALIGNMENT: There is a right convex lower thoracic and lumbar scoliosis. No spondylolysis or spondylo listhesis. SOFT TISSUE: Atherosclerosis. IMPRESSION: 1. Examination limited by patient body habitus and patient positioning. 2. No definite acute fracture or subluxation. 3. [id number] degenerative changes in the lumbar spine. Right convex lumbar scoliosis. DATA REPOSITORY: RADIATION DOSE DELIVERED:
[2021-08-02 08:43] LABS: Bilirubin Negative (Negative); Blood Trace-intact (Negative); Clarity Clear (Clear); Glucose Negative (Negative); Ketones Negative (Negative); Leukocyte Esterase Small (Negative); Nitrite Negative (Negative); Specific Gravity 1.015 (1.005-1.025); Urobilinogen 0.2 EU/dL (Up TO 0.2)
[2021-08-02 08:53] LABS: Bacteria Moderate HPF (Negative); C & S Indicated? Yes; Casts Negative LPF (Negative); Crystals Negative HPF (Negative); Epithelial Cells Few HPF (Negative); Mucus Trace (Negative); RBC 0-2 HPF (0-2); WBC 20-50 HPF (0-5)
--- NOTE | 2021-08-02 10:53 | NUR.NOTE ---
Nursing Note: PT soiled linens. Pt cleaned, brief applied, linens changed. PT reports increased comfort.
--- NOTE | 2021-08-02 10:57 | IN_ITS ---
Date of service: 08/02/21 Time of Service: 10:57 PT Notes Visit Reasons: [facility] Inpatient Initial Evaluation Date: 08/02/2021 Referring Doctor: Madison Hollins NP PT Orders: PT CONSULT: Safety consult for D/C Precautions: Fall. Standard. Activity as tolerated. Tracheostomy in place. Patient Profile/Admitting Diagnosis: Patient is an 81-year-old female with a past medical history history of pulmonary embolism, squamous cell carcinoma, vocal cord carcinoma, and s/p radiation, s/p laryngectomy and thyroidectomy, and tracheostomy placement who presented to the ED today with low back pain and inability to safely move. Patient is diagnosed with acute urinary tract infection. Lumbar spine x-ray result as follows: 1. Examination limited by patient body habitus and patient positioning 2. No definite acute fracture or subluxation. 3. [id number] degenerative changes in the lumbar spine. Right convex lumbar scoliosis. PMHx: Medical History Adynamic ileus Anemia due to blood loss, acute Anxiety Atrial fibrillation with controlled ventricular rate Benign paroxysmal vertigo Benign paroxysmal vertigo, unspecified ear C. difficile diarrhea Cataract O.U 02/24/14; Dr. Martin left extraction 03/10/14; Dr. 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 L hip-mild acetabular spurring 2015 - severe arthritis at facet joints Lumbago Nausea and vomiting Neutrophilic leukocytosis Oral thrush Oral ulcer 12/07/16 Peripheral edema (07/31/16) Peripheral venous insufficiency (12/03/08) edema Pharyngoesophageal dysphagia Physical deconditioning Pneumonia of right lower lobe due to infectious organism Polyp of colon colonoscopy of 01/09/11-multiple polyps at multiple locations. 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 Very hard to regulate and cannot afford alternatives. Understands the risks. Repeat again - PE. 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 The tracheostomy appears healthy save for small amount of granulation tissue.02/25 Stenosis of carotid artery (01/20/16) carotid us 01/18 TMJ (temporomandibular joint disorder) right Tracheostomy hemorrhage Tracheostomy hemorrhage Transient ischemic attack (08/04/03) POS MRI R TEMPORAL LOBE. NEG ECHO 2000 Trouble swallowing Urinary incontinence (11/10/14) Vaginal lesion 03/22/16 Venous insufficiency Visual disturbance etiology unclear per -exam of 03/14/11 Vitamin D deficiency Vitamin D deficiency (03/11/09) Vulvovaginitis Surgical History Extraction of cataract 02/24/14; LEFT EYE 03/10/14; RIGHT EYE History of bilateral tubal ligation History of laryngectomy Ligation of fallopian tube Status post gastrostomy Status post tracheostomy Social History/Home Situation: Lisa has 24/7 caregivers who provide all the assistance that she needs. She requires supervision for all mobility ADL performance using the 4-wheeled walker. Equipment Owned/DME: four-wheeled walker Subjective: Denies pain in the back at rest and with ambulation activity at time of evaluation. Okay with sending PT to evalaute home safety and progress walking using 4WW. Son verbalizes that she has 24/7 caregivers watching over her. Denies having fallen in the past year. Objective: General Observation: Telemetry monitoring in place. Tracheostomy in place. Son present to watch over mother. Mental Status: Patient is non-verbal. She is able to subvocalize but is not intelligible most of the time, often requires white board/paper and pen to write. Pain: Denies ROM: Right Upper Extremity: Shoulder Flexion allows up to 90 degrees. Shoulder abduction allows up to 90 degrees. Elbow flexion WFL. Wrist flexion WFL. Opening and closing of hand WFL. Left Upper Extremity: Shoulder Flexion allows up to 90 degrees. Shoulder abduction allows up to 90 degrees. Elbow flexion WFL. Wrist flexion WFL. Opening and closing of hand WFL. Right Lower Extremity: Hip flexion WFL. Hip abduction WFL. Knee flexion WFL. Ankle dorsiflexion WFL. Ankle plantarflexion WFL. Left Lower Extremity: Hip flexion WFL. Hip abduction WFL. Knee flexion WFL. Ankle dorsiflexion WFL. Ankle plantarflexion WFL. Strength: Right Upper Extremity: Shoulder flexors 3-/5. Shoulder abductors 3+/5. Elbow flexors 4-/5. Elbow extensors 4-5. Energy Efficiency Engineer strong. Left Upper Extremity: Shoulder flexors 3-/5. Shoulder abductors 3+/5. Elbow flexors 4-/5. Elbow extensors 4-/5. Energy Efficiency Engineer strong. Right Lower Extremity: Hip flexors 4-/5. Hip abductors 4-/5. Knee flexors 4-/5. Knee extensors 4-/5. Ankle dorsiflexors 4-/5. Ankle plantarflexors 4-/5. Left Lower Extremity: Hip flexors 4/5. Hip abductors 4/5. Knee flexors 4/5. Knee extensors 4/5. Ankle dorsiflexors 4/5. Ankle plantarflexors 4/5. Sensation: Intact as to pain and pressure on bilateral lower extremities. Bed Mobility/Transfers: Sit to supine: Minimal assist to B LE due to bed height Sit to stand supervision Stand to sit supervision Bed to chair supervision Chair to bed supervision Gait: 80 feet using front wheeled walker with full weight-bearing requiring standby assist. Decreased abdiaziz. Forward head posture. Thoracic kyphosis. No LOB. NO path deviation. No SOB. No pain report. Balance: Static Sitting: Normal Dynamic Sitting: Normal Static Standing: Poor Dynamic Standing: Poor Special Tests: Mobility Limitations Standardized Measure [facility] 6 clicks Basic Mobility Inpatient Short Form: Raw Score: 22 CMS Score: 21 % deficit Informed Consent/Education: Patient instructed in purpose of PT consult. Assessment: Denies pain at rest and with weight bearing. Able to cover more ambulation distance using the front wheeled walker for this evaluation than she would at home. No new acute abnormality per most recent lumbar spine radiogra phs. Patient is an 81-year-old female with a past medical history history of pulmonary embolism, squamous cell carcinoma, vocal cord carcinoma, and s/p radiation, s/p laryngectomy and thyroidectomy, and tracheostomy placement who presented to the ED today with low back pain and inability to safely move. Patient is diagnosed with acute urinary tract infection. May go home when cleared by MD/HYDROTECHNICAL SPECIALIST with home health PT services. Patient presents with clinical signs and symptoms consistent with current/admitting diagnoses that have resulted to mobility limitations, gait instability, and generalized weakness as demonstrated by the following impairment level findings: 1. Decreased strength to B UE/LE major muscle groups (at baseline strength) Impairments are contributing to the following functional limitations: 1. Inability to safely ambulate without assistive device and physical assistance 2. Increase completion time for mobility ADL performance Patient is assessed as a 10907 moderate complexity based on the following: History: Lisa is a an 80-year-old female with impairment level findings, functional limitations, and past medical history as listed above Examination: Demonstrable impairment in strength, and balance with underlying impairments and functional limitations as documented above Presentation: Evolving Decision Makin moderate complexity Goals: N/A. PT evaluation and 1 treatment session functional mobility training. Plan of Care/Treatment Plan: N/A. PT evaluation and 1 treatment session functional mobility training. DISCHARGE RECOMMENDATIONS: Patient will benefit from home health PT services in order to progress mobility level using least restrictive assistive ambulatory device, assess home safety, identify additional equipment needs, and establish a functional maintenance program that will increase ability of patient to remain at home. TREATMENT CODE/TIME: 59756 x 23 minutes beginning at 10:57 PM. Thank you for the opportunity to participate in the care of this patient. Valeria Reyes PT, DPT, CLT [facility] [place], [place]
[2021-08-02] MEDS: Lidocaine 5% Patch 1 PATCH TP (11:00)
[2021-08-02] MEDS: Cephalexin 250 MG/5 ML 100 ML BTL 500 MG PO (11:28)
[2021-08-02 11:35] VITALS: BP 153/64; PULSE 74; RESP 15; TEMP 36.6; O2SAT 94
--- NOTE | 2021-08-02 15:22 | PDOC.ERCMPRO ---
- If Service Date Differs Date of service: 08/02/21 Time of Service: 15:22 Care Management Progress Note Lisa is seen in the ED for a UTI. At the request of ED provider, CM coordinates a referral to Home Health for in-home physical therapy services.
== END 2021-08-02 11:53 | disposition home or self-care (01) ==
LOC: ER 11:49
PROVIDERS: Emergency Provider Registered Nurse Emergency; PCP Family Medicine
DX: N39.0 Urinary tract infection, site not specified (principal); M54.5 Low back pain; G89.29 Other chronic pain
CPT/HCPCS: 87077; 97162; 99283; 72100; 81003; 81015; 87086; 87186; 99284

== ENCOUNTER 2021-08-31 13:36 | Outpatient (REF) | payer MEDICARE, MEDICAID, SELFPAY ==
[2021-08-31 15:06] LABS: Bilirubin Negative (Negative); Blood Trace-intact (Negative); Clarity Cloudy (Clear); Glucose Negative (Negative); Ketones Negative (Negative); Leukocyte Esterase Large (Negative); Nitrite Positive (Negative); Urobilinogen 0.2 EU/dL (Up TO 0.2)
[2021-08-31 15:14] LABS: Epithelial Cells Rare HPF (Negative); WBC >50 HPF (0-5)
[2021-08-31 15:15] LABS: Bacteria Many HPF (Negative); C & S Indicated? Yes; Casts Negative LPF (Negative); Crystals Negative HPF (Negative); Mucus Negative (Negative); Other Cells Negative (Negative)
== END 2021-08-31 13:37 | disposition home or self-care (01) ==
LOC: LBN 13:36
PROVIDERS: PCP Family Medicine; Visit Provider Family Medicine
DX: R31.9 Hematuria, unspecified (principal)
CPT/HCPCS: 87077; 81003; 81015; 87086; 87186

== ENCOUNTER 2021-09-21 19:15 | Outpatient (REF) | payer MEDICARE, MEDICAID, SELFPAY ==
[2021-09-23 15:39] LABS: COVID-19 RT-PCR UVMMC Result Negative (Negative)
== END 2021-09-21 19:16 | disposition home or self-care (01) ==
LOC: LBN 19:15
PROVIDERS: PCP Family Medicine; Visit Provider Family Medicine
DX: Z20.822 Contact with and (suspected) exposure to COVID-19 (principal); R50.9 Fever, unspecified
CPT/HCPCS: U0003

== ENCOUNTER 2021-11-02 22:31 | Outpatient (REF) | payer MEDICARE, MEDICAID, SELFPAY ==
[2021-11-02 21:29] LABS: Bilirubin Negative (Negative); Blood Negative (Negative); Clarity Sl Cloudy (Clear); Glucose Negative (Negative); Ketones Negative (Negative); Leukocyte Esterase Negative (Negative); Nitrite Negative (Negative); Specific Gravity 1.025 (1.005-1.025); Urobilinogen 0.2 EU/dL (Up TO 0.2)
== END 2021-11-02 22:32 | disposition home or self-care (01) ==
LOC: LBN 22:31
PROVIDERS: PCP Family Medicine; Visit Provider Physician Assistant Medical
DX: R31.9 Hematuria, unspecified (principal); N39.0 Urinary tract infection, site not specified
CPT/HCPCS: 81003; 87086

== ENCOUNTER 2022-03-23 12:22 | Outpatient (REF) | payer MEDICARE, MEDICAID, SELFPAY ==
[2022-03-23 12:17] LABS: Bilirubin Negative (Negative); Blood Negative (Negative); Clarity Sl Cloudy (Clear); Glucose Negative (Negative); Ketones Negative (Negative); Leukocyte Esterase Moderate (Negative); Nitrite Positive (Negative); Urobilinogen 0.2 EU/dL (Up TO 0.2)
[2022-03-23 12:28] LABS: Bacteria Moderate HPF (Negative); C & S Indicated? Yes; Casts Negative LPF (Negative); Crystals Negative HPF (Negative); Epithelial Cells Few HPF (Negative); Mucus Negative (Negative); RBC 0-2 HPF (0-2); WBC >50 HPF (0-5)
== END 2022-03-23 12:23 | disposition home or self-care (01) ==
LOC: LBN 12:22
PROVIDERS: PCP Family Medicine; Visit Provider Family Medicine
DX: R30.0 Dysuria (principal)
CPT/HCPCS: 87077; 81003; 81015; 87086; 87186

== ENCOUNTER 2022-04-06 18:46 | Outpatient (REF) | payer MEDICARE, MEDICAID, SELFPAY | END 2022-04-06 18:47 | disposition home or self-care (01) | LOC: LBN 18:46 | PROVIDERS: PCP Family Medicine; Visit Provider Otolaryngology | DX: R09.81 Nasal congestion; J32.8 Other chronic sinusitis | CPT/HCPCS: 87077; 87070; 87186 ==

== ENCOUNTER → 2022-06-02 00:36 | Outpatient (CLI) | payer MEDICARE, MEDICAID, SELFPAY ==
--- NOTE | 2022-06-02 | DI.CT_ITS ---
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 Evalu ate for sinusitis. TECHNIQUE: Imaging Protocol: Axial computed tomography images with coronal and sagittal reformatted images were created and reviewed. COMPARISON: CT HEAD WITHOUT CONTRAST from 01/20/2016 FINDINGS: The examination is limited due to patient motion artifact. AXIAL IMAGES: Frontal sinuses: Normally aerated. Ethmoid air cells: Normally aerated. Maxillary sinuses: There is mild mucosal thickening in the maxillary sinuses bilaterally. No air-flu id levels are present. Sphenoid sinus: Normally aerated. Ostiomeatal complexes: Patent. Osseous nasal septum: Midline. Visualized regional soft tissues: No acute findings. Orbits: Unremarkable. Bones: Unremarkable. Mastoid Air Cells: Normally aerated. IMPRESSION: Mild maxillary sinusitis. No air-fluid levels. RADIATION DOSE DELIVERED: 189.79mGy.cm Total DLP 189.79mGy.cm Total DLP DATA REPOSITORY: All CT scans at this facility are submitted to the National Radiology Data Registry (NRDR) Dose Index Registry (DIR) with the [employer] ([employer]). RADIATION OPTIMIZATION: All CT scans at this facility use at least one of these dose optimization te chniques: automated exposure control; mA and/or kV adjustment per patient size (includes targeted exa ms where dose is matched to clinical indication); or iterative reconstruction.
== END ==
PROVIDERS: PCP Family Medicine; Visit Provider Otolaryngology Otolaryngology/Facial Plastic Surgery
DX: C13.9 Malignant neoplasm of hypopharynx, unspecified (principal); J34.89 Other specified disorders of nose and nasal sinuses; J32.0 Chronic maxillary sinusitis
CPT/HCPCS: 70486

== ENCOUNTER 2022-07-02 17:13 | Emergency (ER) | payer MEDICARE, MEDICAID, SELFPAY ==
[2022-07-02 17:13] VITALS: BP 114/52; PULSE 79; RESP 18; TEMP 37.2; O2SAT 92
--- NOTE | 2022-07-02 17:15 | DI.RAD_ITS ---
Exam(s) XR HUMERUS LT EXAM: XR HUMERUS LT CLINICAL HISTORY: trauma, fall. TECHNIQUE: 2D digital imaging was performed of the left humerus. Three images were obtained. AP an d lateral views were obtained. COMPARISON: No exams were available for comparison FINDINGS: BONES: No acute fracture is present. No bony destructive lesion is seen. Visualized portion of elbow and shoulder joints are unremarkable. The bones are osteopenic. SOFT TISSUE: Surgical clips are seen in the soft tissues around the elbow. IMPRESSION: No acute fracture or dislocation. DATA REPOSITORY: RADIATION DOSE DELIVERED:
--- NOTE | 2022-07-02 17:15 | DI.RAD_ITS ---
Exam(s) XR TIB/FIB LT EXAM: XR TIB/FIB LT CLINICAL HISTORY: trauma, fall. TECHNIQUE: 2D digital imaging was performed of the left tibia and fibula. Three images were obtained . AP and lateral views were obtained. COMPARISON: No exams were available for comparison FINDINGS: BONES: No acute fracture is present. No bony destructive lesion is seen. Visualized portion of knee a nd ankle joints are unremarkable. The bones are osteopenic. SOFT TISSUE: There is generalized soft tissue swelling. IMPRESSION: No acute fracture or dislocation. DATA REPOSITORY: RADIATION DOSE DELIVERED:
--- NOTE | 2022-07-02 17:15 | DI.RAD_ITS ---
Exam(s) XR KNEE LT 3V AP,LAT,SIDNEY EXAM: XR KNEE LT 3V AP,LAT,SIDNEY CLINICAL HISTORY: trauma, fall. TECHNIQUE: 2D digital imaging was performed of the left knee. Three images were obtained. AP, late ral and PA tunnel views were obtained. COMPARISON: No previous for comparison. FINDINGS: BONES: No acute fracture is present. No bony destructive lesion is seen. The bones are osteopenic. There is an enthesophyte at the superior patella. JOINTS: The knee is normally aligned. No joint effusion is seen. SOFT TISSUE: Normal. IMPRESSION: No acute fracture or dislocation. DATA REPOSITORY: RADIATION DOSE DELIVERED:
--- NOTE | 2022-07-02 17:15 | DI.RAD_ITS ---
Exam(s) XR KNEE RT 3V AP,LAT,SIDNEY EXAM: XR KNEE RT 3V AP,LAT,SIDNEY CLINICAL HISTORY: trauma, fall. TECHNIQUE: 2D digital imaging was performed of the right knee. Three views obtained. AP, lateral an d PA tunnel views were obtained. COMPARISON: CR,XR XR KNEE LT 3V AP,LAT,SIDNEY from 07/02/2022 FINDINGS: BONES: No acute fracture is present. No bony destructive lesion is seen. The bones are osteopenic. T here is a small enthesophyte at the superior patella. JOINTS: The knee is normally aligned. There is a tiny joint effusion. SOFT TISSUE: There is generalized soft tissue swelling. IMPRESSION: No acute fracture or dislocation. DATA REPOSITORY: RADIATION DOSE DELIVERED:
--- NOTE | 2022-07-02 17:15 | DI.RAD_ITS ---
Exam(s) XR SHOULDER LT COMPLETE 2+V EXAM: XR SHOULDER LT COMPLETE 2+V CLINICAL HISTORY: trauma, fall. TECHNIQUE: 2D digital imaging was performed of the left shoulder. Three images were obtained. AP, Grashey, Y-view and axillary views were obtained. COMPARISON: No exams were available for comparison FINDINGS: BONES: No acute fracture is present. No bony destructive lesion is seen. The bones are osteopenic. JOINTS: No dislocation present. Mild degenerative changes are seen at the acromioclavicular joint. SOFT TISSUE: Normal. Note is made of a tracheostomy tube. IMPRESSION: No acute fracture or dislocation. DATA REPOSITORY: RADIATION DOSE DELIVERED:
--- NOTE | 2022-07-02 17:25 | DI.RAD_ITS ---
Exam(s) XR TIB/FIB RT EXAM: XR TIB/FIB RT CLINICAL HISTORY: trauma, fall. TECHNIQUE: 2D digital imaging was performed of the right tibia and fibula. Three images were obtaine d. AP and lateral views were obtained. COMPARISON: No exams were available for comparison FINDINGS: BONES: No acute fracture is present. No bony destructive lesion is seen. Visualized portion of knee a nd ankle joints are unremarkable. The bones are osteopenic. SOFT TISSUE: Normal. Atherosclerosis is present. IMPRESSION: No acute fracture or dislocation. DATA REPOSITORY: RADIATION DOSE DELIVERED:
--- NOTE | 2022-07-02 17:29 | W.ED.GENAD ---
Discharge Plan Disposition Patient Disposition: HOME Condition: Fair Discharge Details Clinical Impression: Contusion of multiple sites, Mobility impaired Primary Care Provider: Caridad Sánchez ED Provider: Kalia Holman Home Meds and New Rx's Prescriptions: No Action (DME) Posie overnight pads XL See Rx Instructions .Route .MEDSUPPLY Qty: 66 12RF Rx Instructions: As directed Pull ups ipratropium bromide 42 mcg (0.06 %) spray,non-aerosol 2 spray intranasal TID Qty: 15 5RF Rx Instructions: administer into each nostril cetirizine 10 mg tablet 10 mg PO DAILY Qty: 90 4RF azelastine-fluticasone [Dymista] 137-50 mcg/spray spray,non-aerosol 1 spray intranasal BID Qty: 69 4RF Rx Instructions: administer into each nostril. dispense 3 bottles polyethylene glycol 3350 [Miralax] 17 gram powder in packet 17 g PO DAILY PRN (Reason: constipation) Qty: 100 0RF nystatin 100,000 unit/gram powder 1 applic topical BID Qty: 60 4RF ferrous sulfate 325 mg (65 mg iron) tablet 325 mg PO DAILY Qty: 90 6RF metoclopramide HCl [Reglan] 5 mg tablet 5 mg PO BID Qty: 180 4RF metoprolol succinate 25 mg tablet extended release 24 hr 12.5 mg PO BID Qty: 90 4RF potassium chloride 20 mEq packet 20 meq PO BID Qty: 180 4RF mirtazapine [Remeron SolTab] 15 mg tablet,disintegrating 15 mg PO QHS MDD 22.5 Qty: 90 6RF Eliquis 5 mg tablet 5 mg PO BID Qty: 180 3RF water for irrigation, sterile Solution 20 ml PO Q6H Qty: 8000 4RF ipratropium-albuterol 0.5 mg-3 mg(2.5 mg base)/3 mL solution for nebulization 3 ml IH QID PRN (Reason: wheezing. J44.9) Qty: 90 3RF furosemide 40 mg tablet 40 mg PO DAILY Qty: 90 3RF Metamucil Sugar-Free (aspart) 3.4 gram/5.8 gram Powder 3.4 gm PO BID Qty: 283 0RF Bio-K plus 50 billion cell Capsule,Delayed Release(Dr/Ec) 1 cap PO DAILY Qty: 90 0RF water for injection, sterile Solution 10 ml PO Q6H Qty: 1 0RF loratadine [Claritin] 10 mg Tablet 10 mg PO DAILY Discharge Instructions Instructions: Contusion in Adults (ED) Additional Instructions: You may continue to use Pal wraps as needed for additional support to your lower extremity injuries. Continue to take rupi-ktv-[id number] acetaminophen as needed for pain and follow-up with primary care provider for reassessment if not improving in the next 1 to 2 weeks. If you notice any new or significant worsening of symptoms please return to the emergency department for evaluation. Referrals: Caridad Sánchez MD, [place] [Primary Care Provider] - (As needed for reassessment) Discharge Data Discharge Date/Time-TO BE ENTERED AT DEPARTURE: 07/02/22 20:11 Medical Decision Making Patient presenting to the emergency department for chief complaint of fall with multiple injuries. Patient fell yesterday and had EMS assist with left but today while using patient's lift and performing normal activities patient continues to have bilateral leg weakness pain discomfort and left shoulder discomfort. Patient denies any head injury, chest pain, shortness of breath or abdominal pain. Physical exam shows tenderness to left shoulder and humerus, significant tenderness with ecchymosis to bilateral knees just distal to the joint with tenderness over the proximal tibia and tibial plateau and also tenderness to bilateral femurs. Radiological imaging reviewed and shows no acute fracture. I suspect multiple contusions with ecchymosis and patient being on Eliquis contributing to additional swelling. Patient's knee is wrapped with supportive Pal wrap and encouraged continued use of acetaminophen as needed. Discussed plan of care with caregivers and patient which after discussion had no further questions or concerns. Given that patient typically uses a lift and is primarily bedbound EMS was needed to transport patient home. After discussion of diagnosis and plan of care patient and caregivers have no further needs, questions, or concerns and states clear understanding to return to the emergency department for any worsening symptoms. HPI General Mode of arrival: EMS. Date/Time Provider Initiated Documentation: 07/02/22 17:15. Limitations to Documentation: language barrier. Information obtained by: family and RN notes reviewed. History of Present Illness 82 year old F presents to the emergency department with the chief complaint of Fall, described as severe, Related Data Home Medications Medication Instructions Recorded Confirmed L. acidophilus,casei,rhamnosus 50 1 cap PO DAILY #90 caps 06/01/20 07/02/22 billion cell capsule,delayed release (Bio-K plus) psyllium husk (aspartame) 3.4 3.4 gm PO BID #283 grams 06/01/20 06/27/22 gram/5.8 gram oral powder (Metamucil Sugar-Free (aspartame)) water for injection, sterile 10 ml PO Q6H #1 mL 06/30/20 06/27/22 ipratropium bromide 42 mcg (0.06 2 spray intranasal TID #15 mL 02/01/21 06/27/22 %) nasal spray polyethylene glycol 3350 17 gram 17 g PO DAILY PRN constipation 02/24/21 06/27/22 oral powder packet (Miralax) #100 ea nystatin 100,000 unit/gram topical 1 applic topical BID #60 grams 04/15/21 06/27/22 powder ferrous sulfate 325 mg (65 mg 325 mg PO DAILY #90 tabs 05/31/21 07/02/22 iron) tablet Posie overnight pads #66 ea 11/10/21 06/27/22 azelastine-fluticasone 137 mcg-50 1 spray intranasal BID #69 grams 12/05/21 06/27/22 mcg/spray nasal spray (Dymista) metoclopramide HCl 5 mg tablet 5 mg PO BID #180 tabs 12/30/21 07/02/22 (Reglan) metoprolol succinate 25 mg 12.5 mg PO BID #90 tabs 12/30/21 07/02/22 tablet,extended release 24 hr potassium chloride 20 mEq oral 20 meq PO BID #180 ea 01/19/22 06/27/22 packet mirtazapine 15 mg disintegrating 15 mg PO QHS #90 tabs 02/15/22 06/27/22 tablet (Remeron SolTab) cetirizine 10 mg tablet 10 mg PO DAILY #90 tabs 03/23/22 06/27/22 apixaban 5 mg tablet (Eliquis) 5 mg PO BID #180 tabs 04/13/22 07/02/22 ipratropium 0.5 mg-albuterol 3 mg 3 ml inhalation QID PRN wheezing. 05/01/22 06/27/22 (2.5 mg base)/3 mL nebulization J44.9 #90 mL soln water for irrigation, sterile 20 ml PO Q6H #8,000 mL 05/01/22 06/27/22 furosemide 40 mg tablet 40 mg PO DAILY #90 tabs 05/12/22 07/02/22 loratadine 10 mg tablet (Claritin) 10 mg PO DAILY 07/02/22 07/02/22 Previous Rx's Medication Instructions Recorded L. acidophilus,casei,rhamnosus 50 1 cap PO DAILY #90 caps 06/01/20 billion cell capsule,delayed release (Bio-K plus) psyllium husk (aspartame) 3.4 3.4 gm PO BID #283 grams 06/01/20 gram/5.8 gram oral powder (Metamucil Sugar-Free (aspartame)) water for injection, sterile 10 ml PO Q6H #1 mL 06/30/20 ipratropium bromide 42 mcg (0.06 2 spray intranasal TID #15 mL 02/01/21 %) nasal spray polyethylene glycol 3350 17 gram 17 g PO DAILY PRN constipation 02/24/21 oral powder packet (Miralax) #100 ea nystatin 100,000 unit/gram topical 1 applic topical BID #60 grams 04/15/21 powder ferrous sulfate 325 mg (65 mg 325 mg PO DAILY #90 tabs 05/31/21 iron) tablet Posie overnight pads #66 ea 11/10/21 azelastine-fluticasone 137 mcg-50 1 spray intranasal BID #69 grams 12/05/21 mcg/spray nasal spray (Dymista) metoclopramide HCl 5 mg tablet 5 mg PO BID #180 tabs 12/30/21 (Reglan) metoprolol succinate 25 mg 12.5 mg PO BID #90 tabs 12/30/21 tablet,extended release 24 hr potassium chloride 20 mEq oral 20 meq PO BID #180 ea 01/19/22 packet mirtazapine 15 mg disintegrating 15 mg PO QHS #90 tabs 02/15/22 tablet (Remeron SolTab) cetirizine 10 mg tablet 10 mg PO DAILY #90 tabs 03/23/22 apixaban 5 mg tablet (Eliquis) 5 mg PO BID #180 tabs 04/13/22 ipratropium 0.5 mg-albuterol 3 mg 3 ml inhalation QID PRN wheezing. 05/01/22 (2.5 mg base)/3 mL nebulization J44.9 #90 mL soln water for irrigation, sterile 20 ml PO Q6H #8,000 mL 05/01/22 furosemide 40 mg tablet 40 mg PO DAILY #90 tabs 05/12/22 Allergies Allergy/AdvReac Type Severity Reaction Status Date / Time atorvastatin AdvReac Intermediate pt does Verified 06/27/22 09:28 not think she has an allergy to this med General Stated Complaint: Trauma SUHA: 2 Review of Systems Narrative: Extremely difficult to obtain review of systems due to patient being nonverbal and review of systems was obtained by patient caregivers Constitutional Constitutional: Reports weakness (Generalized) ENT Ears, Nose, Mouth, and Throat: Denies dizziness Cardiovascular Cardiovascular: Denies syncope Musculoskeletal Musculoskeletal: Reports joint swelling and Reports limited range of motion Integumentary/Breasts Skin/Breast: Denies wounds Neurologic Neurologic: Denies dizziness, Denies syncope and Reports weakness (Generalized) Hematologic/Lymphatic Hematologic/Lymphatic: Reports easy bruising PFSH All Active Problems (Updated 07/02/22 @ 19:36 by Kalia Holman NP) Contusion of multiple sites (Acute) Rhinorrhea (Acute) Cervicalgia (Acute) Sinusitis (Acute) Osteoarthritis of right hip (Acute) Neck swelling (Acute) Feeding tube dysfunction (Acute) Acute UTI (Acute) Foreign body sensation in throat (Acute) Tracheostomy care (Acute) Diabetes mellitus (Chronic) Constipation (Acute) Mobility impaired (Acute) 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 (Acute) 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) DNR (do not resuscitate) (Chronic) COPD (chronic obstructive pulmonary disease) (Chronic) Anxiety (Chronic) Physical deconditioning (Acute) Atrial fibrillation with controlled ventricular rate (Chronic) Anemia of chronic disease (Chronic) Protein-calorie malnutrition, mild (Chronic) S/P small bowel resection (Acute) History of CVA (cerebrovascular accident) (Acute) Tracheostomy care (Acute) Vocal cord paralysis, unilateral complete (Acute) Vitamin D deficiency (Chronic 03/11/09) Urinary incontinence (Chronic 11/10/14) Stenosis of carotid artery (Chronic 01/20/16) carotid us 01/18 Peripheral venous insufficiency (Chronic 12/03/08) edema Peripheral edema (Chronic 07/31/16) Low back pain (Chronic 03/04/06) L 2-3 disc narrowing. L hip-mild acetabular spurring 2015 - severe arthritis at facet joints Hyperlipidemia (Chronic 04/15/13) Hip pain (Chronic) bilateral 2015 - mild arthritis right Essential hypertension (Chronic 10/31/13) Depressive disorder (Chronic) Decreased muscle tone (Chronic) ANAL SPINCTER Cerebrovascular accident (CVA) (Chronic 01/20/16) seen on previous CT Scans 2015 Cerebral arteriovenous malformation (Chronic) Medical History Adynamic ileus Anemia due to blood loss, acute Benign paroxysmal vertigo Benign paroxysmal vertigo, unspecified ear C. difficile diarrhea Cataract O.U 02/24/14; Dr. Martin left extraction 03/10/14; Dr. Martin right extraction Cellulitis 07/31/16 both lower extremity Cerebral vascular malformation Colitis due to Clostridium difficile Decubitus ulcer, stage I Deficient knowledge of tracheostomy home care Depression Discharge planning issues DVT prophylaxis DVT prophylaxis Dysphagia (01/01/18) History of tobacco use 2 ppd; quit in 2000 Hyperlipidemia Hypertension Leukocytosis Lumbago Nausea and vomiting Neutrophilic leukocytosis Oral thrush Oral ulcer 12/07/16 Palliative care patient DObbertin Pharyngoesophageal dysphagia Pneumonia of right lower lobe due to infectious organism Polyp of colon colonoscopy of 01/09/11-multiple polyps at multiple locations. 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 Very hard to regulate and cannot afford alternatives. Understands the risks. Repeat again - PE. 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 The tracheostomy appears healthy save for small amount of granulation tissue.02/25 TMJ (temporomandibular joint disorder) right Tracheostomy hemorrhage Tracheostomy hemorrhage Transient ischemic attack (08/04/03) POS MRI R TEMPORAL LOBE. NEG ECHO 2000 Trouble swallowing Vaginal lesion 03/22/16 Venous insufficiency Visual disturbance etiology unclear per -exam of 03/14/11 Vitamin D deficiency Vulvovaginitis Surgical History Extraction of cataract 02/24/14; LEFT EYE 03/10/14; RIGHT EYE History of bilateral tubal ligation History of laryngectomy Ligation of fallopian tube Status post gastrostomy Status post tracheostomy Family History Mother , 85 Vaginal cancer Father , 74 Heart disease COPD (chronic obstructive pulmonary disease) Sister , 63 Heart disease ASHD/CHF Lung cancer Maternal Grandmother Heart disease Paternal Grandmother Diabetes Son , 40 Substance abuse Heart disease Sister No problems noted. Sister No problems noted. Son RA (rheumatoid arthritis) Daughter No problems noted. Daughter No problems noted. Paternal Grandfather , 80 No problems noted. Social History Smoking/Tobacco Use Status: Former Tobacco Use Quit Date: 06/05/01 Second Hand Exposure: Yes Smoking risk assessment performed?: Yes Alcohol Intake: former Drug use: Never Substance use type: does not use Caregiver/Support person: Yes Household members: none Housing: house Do you need help understanding health information?: Rarely Pets and animals: No Sexually active: No Current gender identity: female What is your relationship status?: How often do you talk on the phone with friends or family?: never How often do you get together with friends or relatives?: decline to answer How often do you attend congregation or nondenominational services?: decline to answer Do you belong to any clubs or organized social groups?: decline to answer Panel score (0-1 are the most socially isolated patients): 0 What type of physical activity do you participate in: decline to answer Duration: 15-30 minutes/day Frequency: 1-2 times per week Bethany/Baptist: Religious Special bethany needs: No Seatbelt use: always Helmet use: No Drive intox or ride w/intox local hazmat driver: No Do you feel safe at home: Yes Do you feel safe in your relationship?: Yes Exam HENMT Head: atraumatic Eyes General: appearance normal, both eyes and all related structures Resp Effort & Inspection: normal respiratory effort and other (Tracheotomy ) Cardio Pulses: normal peripheral pulses Extrem Right upper extremity: full ROM and normal capillary refill Left upper extremity: shoulder/upper arm Details: tenderness Location: of the proximal humerus, of the mid-shaft humerus and over the deltoid bursa, axillary nerve sensory function normal and abnormal ROM Details: pain with active ROM Details: in ABduction and in extension; no abrasions and no lacerations Right lower extremity: hip/thigh Details: tenderness, knee Details: tenderness Location: of the tibial tuberosity and of the distal upper leg, swelling Location: of the tibial tuberosity, of the distal upper leg and of the proximal tibia and abnormal ROM Details: pain with active ROM during Details: in flexion, ankle Details: normal to inspection and foot Details: normal capillary refill and normal to inspection Left lower extremity: hip/thigh Details: tenderness and abnormal ROM Details: pain with active ROM, knee Details: tenderness, swelling Location: of the distal upper leg and of the proximal tibia and abnormal ROM Details: pain with active ROM Details: with flexion, ankle Details: normal to inspection and foot Details: normal capillary refill and normal to inspection Course Vital Signs Vital signs: Vital Signs Temperature 37.2 C 07/02/22 17:13 Pulse 79 07/02/22 17:13 Respiratory Rate 18 07/02/22 17:13 Blood Pressure 114/52 L 07/02/22 17:13 Pulse Oximetry 92 07/02/22 17:13 Temperature 37.2 C 07/02/22 17:13 Temperature Source Oral 07/02/22 17:13 Pulse 79 07/02/22 17:13 Respiratory Rate 18 07/02/22 17:13 Blood Pressure 114/52 L 07/02/22 17:13 Blood Pressure Position Supine 07/02/22 17:13 Pulse Oximetry 92 07/02/22 17:13 Oxygen Delivery Method Room Air 07/02/22 17:13 Oxygen Flow Rate 0 07/02/22 17:13
[2022-07-02] MEDS: Acetaminophen Solution 650 MG/20.3 ML CUP PO (17:35)
--- NOTE | 2022-07-02 18:10 | DI.CT_ITS ---
Exam(s) CT PELVIC WO EXAM: CT PELVIC WO CLINICAL HISTORY: Pelvis Bone scan with bilateral femurs. TECHNIQUE: Imaging Protocol: Axial computed tomography images with coronal and sagittal reformatted images were created and reviewed. COMPARISON: No exams were available for comparison FINDINGS: Bones: There is a question of disruption of the cortex anteriorly of the right sacrum. This may rep resent a nondisplaced fracture. The sacroiliac joints are well maintained. Bony alignment is satisf actory. The bones are osteopenic. There is mild degenerative change seen at the hips bilaterally, r ight greater than left. Joint space narrowing and periarticular spurring is seen. No lytic or scler otic lesions are identified. Soft Tissues: There is cholelithiasis. Atherosclerosis is present. IMPRESSION: 1. Examination is limited by osteopenia. 2. Question of disruption of the anterior cortex of the right sacrum. A nondisplaced fracture cannot be excluded. A bone scan or MRI may be considered for further evaluation. 3. Note is made of cholelithiasis. RADIATION DOSE DELIVERED: 1,122.94mGy.cm Total DLP 1,122.94mGy.cmTotal DLP DATA REPOSITORY: All CT scans at this facility are submitted to the National Radiology Data Registry (NRDR) Dose Index Registry (DIR) with the [employer] (A[employer]). RADIATION OPTIMIZATION: All CT scans at this facility use at least one of these dose optimization te chniques: automated exposure control; mA and/or kV adjustment per patient size (includes targeted exa ms where dose is matched to clinical indication); or iterative reconstruction.
--- NOTE | 2022-07-02 18:29 | DI.VRAD_ITS ---
PROCEDURE INFORMATION: Exam: XR Left Shoulder Exam date and time: 07/02/2022 17:58 Age: 82 years old Clinical indication: Injury or trauma; Fall; Blunt trauma (contusions or hematomas); Shoulder; Left TECHNIQUE: Imaging protocol: Radiologic exam of the Left shoulder. Views: 2 or more views. COMPARISON: US EXTREMITY VENOUS BI 05/24/2020 16:02 FINDINGS: Bones/joints: The bones are demineralized. No acute fracture or subluxation. Scattered degenerative changes. Soft tissues: Normal. IMPRESSION: No acute bony pathology. Dictated and Authenticated by: Viridiana Currie MD. Ordering:VINNIE Motta MD
--- NOTE | 2022-07-02 18:29 | DI.VRAD_ITS ---
PROCEDURE INFORMATION: Exam: XR Left Humerus Exam date and time: 07/02/2022 18:03 Age: 82 years old Clinical indication: Pain; Upper arm; Left; Patient HX: Fall, trauma TECHNIQUE: Imaging protocol: Radiologic exam of the Left humerus. Views: 2 or more views. COMPARISON: CR XR SHOULDER LT COMPLETE 2+V 07/02/2022 17:58 FINDINGS: Bones/joints: The bones are demineralized. The humerus is intact. No acute fracture or subluxation. Soft tissues: Distal soft tissue clips. IMPRESSION: The humerus is intact. Dictated and Authenticated by: Viridiana Currie MD. Ordering:VINNIE Motta MD
--- NOTE | 2022-07-02 18:29 | DI.VRAD_ITS ---
PROCEDURE INFORMATION: Exam: XR Left Tibia and Fibula Exam date and time: 07/02/2022 18:08 Age: 82 years old Clinical indication: Pain; Lower leg; Left; Patient HX: Fall TECHNIQUE: Imaging protocol: Radiologic exam of the Left tibia and fibula. Views: 2 views. COMPARISON: US EXTREMITY VENOUS BI 05/24/2020 16:02 FINDINGS: Bones/joints: The bones are demineralized. The tibia and fibula are intact. No acute fracture or subluxation. Soft tissues: Generalized soft tissue swelling. IMPRESSION: The tibia and fibula are intact. Dictated and Authenticated by: Viridiana Currie MD. Ordering:VINNIE Motta MD
--- NOTE | 2022-07-02 18:30 | DI.VRAD_ITS ---
PROCEDURE INFORMATION: Exam: XR Left Knee Exam date and time: 07/02/2022 18:09 Age: 82 years old Clinical indication: Pain; Knee; Left; Patient HX: Fall TECHNIQUE: Imaging protocol: Radiologic exam of the Left knee. Views: 3 views. COMPARISON: CR XR TIB/FIB LT 07/02/2022 18:08 FINDINGS: Bones/joints: The bones are demineralized. No acute fracture or subluxation. Soft tissues: Benign appearing distal quadriceps enthesophyte. No significant joint effusion. IMPRESSION: No acute bony pathology. Dictated and Authenticated by: Viridiana Currie MD. Ordering:VINNIE Motta MD
--- NOTE | 2022-07-02 18:30 | DI.VRAD_ITS ---
PROCEDURE INFORMATION: Exam: XR Right Knee Exam date and time: 07/02/2022 18:17 Age: 82 years old Clinical indication: Pain; Knee; Right; Patient HX: Fall TECHNIQUE: Imaging protocol: Radiologic exam of the Right knee. Views: 3 views. COMPARISON: US EXTREMITY VENOUS BI 05/24/2020 16:02 FINDINGS: Bones/joints: The bones are demineralized. No acute fracture or subluxation. Soft tissues: Swelling in the anterior knee. Trace joint fluid. Benign appearing distal quadriceps enthesophyte. IMPRESSION: No acute bony pathology. Dictated and Authenticated by: Viridiana Currie MD. Ordering:VINNIE Motta MD
--- NOTE | 2022-07-02 18:41 | DI.VRAD_ITS ---
PROCEDURE INFORMATION: Exam: XR Right Tibia and Fibula Exam date and time: 07/02/2022 18:20 Age: 82 years old Clinical indication: Pain; Lower leg; Right; Patient HX: Fall TECHNIQUE: Imaging protocol: Radiologic exam of the Right tibia and fibula. Views: 2 views. COMPARISON: CR XR KNEE RT 3V AP,LAT,SIDNEY 07/02/2022 18:17 FINDINGS: Bones/joints: The bones are demineralized. No acute fracture or subluxation. Soft tissues: Benign calcifications in the soft tissues. Vasculature: Atherosclerosis. IMPRESSION: No acute bony pathology. Dictated and Authenticated by: Viridiana Currie MD. Ordering:VINNIE Motta MD
--- NOTE | 2022-07-02 18:51 | DI.VRAD_ITS ---
PROCEDURE INFORMATION: Exam: CT Pelvis Without Contrast; Skeletal Exam date and time: 07/02/2022 18:30 Age: 82 years old Clinical indication: Injury or trauma; Blunt trauma (contusions or hematomas); Left; Hip; Injury details: Fall, on eliquis; Patient HX: Fall; Per provider PT on eliquis; Additional info: Includes both femurs TECHNIQUE: Imaging protocol: Computed tomography of the pelvis without contrast. Exam focused on the skeleton. COMPARISON: CT ABDOMEN PELVIS W 05/13/2020 06:02 FINDINGS: Gallbladder and bile ducts: Cholelithiasis partially seen. Stomach and bowel: Postsurgical changes in small bowel, grossly satisfactory. Bones/joints: The bones are demineralized. No acute fracture or subluxation. Mild joint space narrowing in the hips. Soft tissues: Diastasis recti. IMPRESSION: 1. No acute bony pathology. 2. Incidental findings as described. Dictated and Authenticated by: Viridiaan Currie MD. Ordering:VINNIE Motta MD
== END 2022-07-02 20:11 | disposition home or self-care (01) ==
PROVIDERS: Emergency Provider Nurse Practitioner Family; PCP Family Medicine
DX: S80.01XA Contusion of right knee, initial encounter (principal); S80.02XA Contusion of left knee, initial encounter; I10 Essential (primary) hypertension; Z87.891 Personal history of nicotine dependence; M25.512 Pain in left shoulder; M79.651 Pain in right thigh; M79.652 Pain in left thigh; M79.622 Pain in left upper arm; Z79.01 Long term (current) use of anticoagulants; W19.XXXA Unspecified fall, initial encounter; M79.661 Pain in right lower leg; M79.662 Pain in left lower leg
CPT/HCPCS: 73562; 99284; 72192; 73030; 73060; 73590; 99282

== ENCOUNTER 2022-09-07 08:38 | Emergency (ER) | payer MEDICARE, MEDICAID, SELFPAY ==
[2022-09-07 08:38] VITALS: BP 158/64; PULSE 74; RESP 20; TEMP 36.6; O2SAT 96
--- NOTE | 2022-09-07 08:44 | ED.GENADUL_ITS ---
Discharge Plan Disposition Patient Disposition: HOME Condition: Stable Discharge Details Clinical Impression: Dysphagia Primary Care Provider: Caridad Sánchez ED Provider: Letty Medrano Home Meds and New Rx's Prescriptions: New dexamethasone 4 mg tablet 4 mg PO DAILY Qty: 5 0RF Continued (DME) Posie overnight pads XL See Rx Instructions .Route .MEDSUPPLY Qty: 66 12RF Rx Instructions: As directed Pull ups levofloxacin 500 mg tablet 500 mg PO DAILY Qty: 10 0RF ipratropium bromide 42 mcg (0.06 %) spray,non-aerosol 2 spray intranasal TID Qty: 15 5RF Rx Instructions: administer into each nostril; J34.89 cetirizine 10 mg tablet 10 mg PO DAILY Qty: 90 4RF azelastine-fluticasone [Dymista] 137-50 mcg/spray spray,non-aerosol 1 spray intranasal BID Qty: 69 4RF Rx Instructions: administer into each nostril. dispense 3 bottles polyethylene glycol 3350 [Miralax] 17 gram powder in packet 17 g PO DAILY PRN (Reason: constipation) Qty: 100 0RF nystatin 100,000 unit/gram powder 1 applic topical BID Qty: 60 4RF metoclopramide HCl [Reglan] 5 mg tablet 5 mg PO BID Qty: 180 4RF metoprolol succinate 25 mg tablet extended release 24 hr 12.5 mg PO BID Qty: 90 4RF potassium chloride 20 mEq packet 20 meq PO BID Qty: 180 4RF mirtazapine [Remeron SolTab] 15 mg tablet,disintegrating 15 mg PO QHS MDD 22.5 Qty: 90 6RF Eliquis 5 mg tablet 5 mg PO BID Qty: 180 3RF water for irrigation, sterile Solution 20 ml PO Q6H Qty: 8000 4RF furosemide 40 mg tablet 40 mg PO DAILY Qty: 90 3RF ipratropium-albuterol 0.5 mg-3 mg(2.5 mg base)/3 mL solution for nebulization 3 ml IH QID PRN (Reason: wheezing. J44.9) Qty: 180 3RF ferrous sulfate 325 mg (65 mg iron) tablet 325 mg PO DAILY Qty: 90 3RF Metamucil Sugar-Free (aspart) 3.4 gram/5.8 gram Powder 3.4 gm PO BID Qty: 283 0RF Bio-K plus 50 billion cell Capsule,Delayed Release(Dr/Ec) 1 cap PO DAILY Qty: 90 0RF water for injection, sterile Solution 10 ml PO Q6H Qty: 1 0RF loratadine [Claritin] 10 mg Tablet 10 mg PO DAILY Discharge Instructions Additional Instructions: Please follow-up with your ENT provider Take the steroid as prescribed Please take 5 mL of the pain medication as needed Please return earlier should you have new or worsening complaints boost and ensure and soft diet only Referrals: Caridad Sánchez MD, [place] [Primary Care Provider] - Discharge Data Discharge Date/Time-TO BE ENTERED AT DEPARTURE: 09/07/22 13:50 Medical Decision Making Will perform p.o. challenge, patient maintaining secretions, airway patent, tracheostomy functioning well, vitals stable Fully alert and oriented Oxygenation 95% on room air Patient unable to tolerate p.o., foreign body sensation Will order CT scan neck Given Decadron Strep are negative CT does not show evidence of acute abnormality per radiology interpretation and my review And able to tolerate p.o. now, reports symptomatic improvement, return precautions discussed and patient expressed understanding Medical Records Medical records reviewed: Yes I reviewed the patient's medical records. Lab Data Lab results reviewed: Yes I reviewed the patient's lab results. HPI General Date/Time Provider Initiated Documentation: 09/07/22 08:44 . 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 She states that she was chewing hard candy and she felt it got lodged in her throat. She subsequently vomited and feels that the foreign body dislodged. She states she is able to swallow without difficulty now. She denies any chest pain or shortness of breath. She denies any fever or chills. The event occurred approximately an hour prior to arrival. She has not attempted anything orally. Related Data Home Medications Medication Instructions Recorded Confirmed L. acidophilus,casei,rhamnosus 50 1 cap PO DAILY #90 caps 06/01/20 09/07/22 billion cell capsule,delayed release (Bio-K plus) psyllium husk (aspartame) 3.4 3.4 gm PO BID #283 grams 06/01/20 09/07/22 gram/5.8 gram oral powder (Metamucil Sugar-Free (aspartame)) water for injection, sterile 10 ml PO Q6H #1 mL 06/30/20 09/07/22 polyethylene glycol 3350 17 gram 17 g PO DAILY PRN constipation 02/24/21 09/07/22 oral powder packet (Miralax) #100 ea nystatin 100,000 unit/gram topical 1 applic topical BID #60 grams 04/15/21 09/07/22 powder Posie overnight pads #66 ea 11/10/21 09/07/22 azelastine-fluticasone 137 mcg-50 1 spray intranasal BID #69 grams 12/05/21 09/07/22 mcg/spray nasal spray (Dymista) metoclopramide HCl 5 mg tablet 5 mg PO BID #180 tabs 12/30/21 09/07/22 (Reglan) metoprolol succinate 25 mg 12.5 mg PO BID #90 tabs 12/30/21 09/07/22 tablet,extended release 24 hr potassium chloride 20 mEq oral 20 meq PO BID #180 ea 01/19/22 09/07/22 packet mirtazapine 15 mg disintegrating 15 mg PO QHS #90 tabs 02/15/22 09/07/22 tablet (Remeron SolTab) cetirizine 10 mg tablet 10 mg PO DAILY #90 tabs 03/23/22 09/07/22 apixaban 5 mg tablet (Eliquis) 5 mg PO BID #180 tabs 04/13/22 09/07/22 water for irrigation, sterile 20 ml PO Q6H #8,000 mL 05/01/22 09/07/22 furosemide 40 mg tablet 40 mg PO DAILY #90 tabs 05/12/22 09/07/22 loratadine 10 mg tablet (Claritin) 10 mg PO DAILY 07/02/22 09/07/22 ipratropium bromide 42 mcg (0.06 2 spray intranasal TID J34.89 #15 07/16/22 09/07/22 %) nasal spray mL ipratropium 0.5 mg-albuterol 3 mg 3 ml inhalation QID PRN wheezing. 08/07/22 09/07/22 (2.5 mg base)/3 mL nebulization J44.9 #180 mL soln levofloxacin 500 mg tablet 500 mg PO DAILY #10 tabs 08/10/22 09/07/22 ferrous sulfate 325 mg (65 mg 325 mg PO DAILY #90 tabs 08/21/22 09/07/22 iron) tablet dexamethasone 4 mg tablet 4 mg PO DAILY #5 tabs 09/07/22 Previous Rx's Medication Instructions Recorded L. acidophilus,casei,rhamnosus 50 1 cap PO DAILY #90 caps 06/01/20 billion cell capsule,delayed release (Bio-K plus) psyllium husk (aspartame) 3.4 3.4 gm PO BID #283 grams 06/01/20 gram/5.8 gram oral powder (Metamucil Sugar-Free (aspartame)) water for injection, sterile 10 ml PO Q6H #1 mL 06/30/20 polyethylene glycol 3350 17 gram 17 g PO DAILY PRN constipation 02/24/21 oral powder packet (Miralax) #100 ea nystatin 100,000 unit/gram topical 1 applic topical BID #60 grams 04/15/21 powder Posie overnight pads #66 ea 11/10/21 azelastine-fluticasone 137 mcg-50 1 spray intranasal BID #69 grams 12/05/21 mcg/spray nasal spray (Dymista) metoclopramide HCl 5 mg tablet 5 mg PO BID #180 tabs 12/30/21 (Reglan) metoprolol succinate 25 mg 12.5 mg PO BID #90 tabs 12/30/21 tablet,extended release 24 hr potassium chloride 20 mEq oral 20 meq PO BID #180 ea 01/19/22 packet mirtazapine 15 mg disintegrating 15 mg PO QHS #90 tabs 02/15/22 tablet (Remeron SolTab) cetirizine 10 mg tablet 10 mg PO DAILY #90 tabs 03/23/22 apixaban 5 mg tablet (Eliquis) 5 mg PO BID #180 tabs 04/13/22 water for irrigation, sterile 20 ml PO Q6H #8,000 mL 05/01/22 furosemide 40 mg tablet 40 mg PO DAILY #90 tabs 05/12/22 ipratropium bromide 42 mcg (0.06 2 spray intranasal TID J34.89 #15 07/16/22 %) nasal spray mL ipratropium 0.5 mg-albuterol 3 mg 3 ml inhalation QID PRN wheezing. 08/07/22 (2.5 mg base)/3 mL nebulization J44.9 #180 mL soln levofloxacin 500 mg tablet 500 mg PO DAILY #10 tabs 08/10/22 ferrous sulfate 325 mg (65 mg 325 mg PO DAILY #90 tabs 08/21/22 iron) tablet dexamethasone 4 mg tablet 4 mg PO DAILY #5 tabs 09/07/22 Allergies Allergy/AdvReac Type Severity Reaction Status Date / Time atorvastatin AdvReac Intermediate pt does Verified 08/30/22 09:22 not think she has an allergy to this med General Stated Complaint: GenMedical SUHA: 4 Review of Systems All systems reviewed & are unremarkable except as noted in HPI and below PFSH All Active Problems (Updated 09/07/22 @ 13:08 by SILVERIO Irizarry) Dysphagia (Acute) Purulent rhinorrhea (Acute) Rhinorrhea (Acute) Cervicalgia (Acute) Sinusitis (Acute) Osteoarthritis of right hip (Acute) Neck swelling (Acute) Feeding tube dysfunction (Acute) Acute UTI (Acute) Foreign body sensation in throat (Acute) Tracheostomy care (Acute) Diabetes mellitus (Chronic) Constipation (Acute) Mobility impaired (Acute) 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 (Acute) 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) DNR (do not resuscitate) (Chronic) COPD (chronic obstructive pulmonary disease) (Chronic) Anxiety (Chronic) Physical deconditioning (Acute) Atrial fibrillation with controlled ventricular rate (Chronic) Anemia of chronic disease (Chronic) Protein-calorie malnutrition, mild (Chronic) S/P small bowel resection (Acute) History of CVA (cerebrovascular accident) (Acute) Tracheostomy care (Acute) Vocal cord paralysis, unilateral complete (Acute) Vitamin D deficiency (Chronic 03/11/09) Urinary incontinence (Chronic 11/10/14) Stenosis of carotid artery (Chronic 01/20/16) carotid us 01/18 Peripheral venous insufficiency (Chronic 12/03/08) edema Peripheral edema (Chronic 07/31/16) Low back pain (Chronic 03/04/06) L 2-3 disc narrowing. L hip-mild acetabular spurring 2015 - severe arthritis at facet joints Hyperlipidemia (Chronic 04/15/13) Hip pain (Chronic) bilateral 2015 - mild arthritis right Essential hypertension (Chronic 10/31/13) Depressive disorder (Chronic) Decreased muscle tone (Chronic) ANAL SPINCTER Cerebrovascular accident (CVA) (Chronic 01/20/16) seen on previous CT Scans 2016 Cerebral arteriovenous malformation (Chronic) Medical History Adynamic ileus Anemia due to blood loss, acute Benign paroxysmal vertigo Benign paroxysmal vertigo, unspecified ear C. difficile diarrhea Cataract O.U 02/24/14; Dr. Martin left extraction 03/10/14; Dr. Martin right extraction Cellulitis 07/31/16 both lower extremity Cerebral vascular malformation Colitis due to Clostridium difficile Decubitus ulcer, stage I Deficient knowledge of tracheostomy home care Depression Discharge planning issues DVT prophylaxis DVT prophylaxis Dysphagia (01/01/18) History of tobacco use 2 ppd; quit in 2000 Hyperlipidemia Hypertension Leukocytosis Lumbago Nausea and vomiting Neutrophilic leukocytosis Oral thrush Oral ulcer 12/07/16 Palliative care patient DObbertin Pharyngoesophageal dysphagia Pneumonia of right lower lobe due to infectious organism Polyp of colon colonoscopy of 01/09/11-multiple polyps at multiple locations. 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 Very hard to regulate and cannot afford alternatives. Understands the risks. Repeat again - PE. 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 The tracheostomy appears healthy save for small amount of granulation tissue.02/25 TMJ (temporomandibular joint disorder) right Tracheostomy hemorrhage Tracheostomy hemorrhage Transient ischemic attack (08/04/03) POS MRI R TEMPORAL LOBE. NEG ECHO 2000 Trouble swallowing Vaginal lesion 03/22/16 Venous insufficiency Visual disturbance etiology unclear per -exam of 03/14/11 Vitamin D deficiency Vulvovaginitis Surgical History Extraction of cataract 02/24/14; LEFT EYE 03/10/14; RIGHT EYE History of bilateral tubal ligation History of laryngectomy Ligation of fallopian tube Status post gastrostomy Status post tracheostomy Family History Mother , 85 Vaginal cancer Father , 74 Heart disease COPD (chronic obstructive pulmonary disease) Sister , 63 Heart disease ASHD/CHF Lung cancer Maternal Grandmother Heart disease Paternal Grandmother Diabetes Son , 40 Substance abuse Heart disease Sister No problems noted. Sister No problems noted. Son RA (rheumatoid arthritis) Daughter No problems noted. Daughter No problems noted. Paternal Grandfather , 80 No problems noted. Social History Smoking/Tobacco Use Status: Former Tobacco Use Quit Date: 06/05/01 Second Hand Exposure: Yes Smoking risk assessment performed?: Yes Alcohol Intake: former Drug use: Never Substance use type: does not use Caregiver/Support person: Yes Household members: none Housing: house Do you need help understanding health information?: Rarely Pets and animals: No Sexually active: No Current gender identity: female What is your relationship status?: How often do you talk on the phone with friends or family?: never How often do you get together with friends or relatives?: decline to answer How often do you attend shinto or cheondoism services?: decline to answer Do you belong to any clubs or organized social groups?: decline to answer Panel score (0-1 are the most socially isolated patients): 0 What type of physical activity do you participate in: decline to answer Duration: 15-30 minutes/day Frequency: 1-2 times per week Bethany/Muslim: Shinto Special bethany needs: No Seatbelt use: always Helmet use: No Drive intox or ride 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 Do you feel safe at home: Yes Do you feel safe in your relationship?: Yes Exam Const General: cooperative, comfortable and no acute distress HENMT Head: normal to inspection Other: uvula midline oropharynx patent Eyes Pupils: PERRL Neck Other: no stridor Resp Effort & Inspection: normal respiratory effort Auscultation: clear to auscultation bilaterally Cardio Rate: regular rate Rhythm: regular rhythm GI Inspection: normal to inspection Skin General skin exam: no rashes or lesions noted Neuro General: patient alert and patient oriented x3 Motor: no pronator drift Other: strength3/5 to all all extremities Course Vital Signs Vital signs: Vital Signs Respiratory Rate 20 09/07/22 08:38 Temperature Source Temporal Artery Scan 09/07/22 08:38 Respiratory Rate 20 09/07/22 08:38 Blood Pressure Position Sitting 09/07/22 08:38 Oxygen Delivery Method Room Air 09/07/22 08:38 Oxygen Flow Rate 0 09/07/22 08:38
[2022-09-07 08:54] VITALS: RESP 20
[2022-09-07 11:30] LABS: Abs Immature Grans 0.03 10^3/uL (0.0-0.06); Absolute Basophil Count 0.04 10^3/uL (0.0-0.2); Absolute Eosinophil Count 0.03 10^3/uL (0.0-0.7); Absolute Lymphocyte Count 1.71 10^3/uL (1.2-3.4); Absolute Monocyte Count 0.52 10^3/uL (0.1-0.8); Absolute Neutrophil Count 5.32 10^3/uL (1.2-6.7); Basophils % 0.5; Eosinophils % 0.4; HCT 38.9 % (36.0-46.0); HGB 12.5 g/dL (11.2-15.7); Immature Grans % 0.4; Lymphocytes % 22.4; MCH 31.2 pg (27.0-33.0); MCHC 32.1 % (32.0-36.0); MCV 97 fL (80-95); MPV 9.4 fL (8.0-11.0); Monocytes % 6.8; Neutrophils % 69.5; Platelet Count 240 10^3/uL (130-400); RBC 4.01 10^6/uL (3.93-5.22); RDW 13.3 % (11.7-14.6); RDW-SD 48.3 fL; WBC 7.65 10^3/uL (4.4-10.8)
--- NOTE | 2022-09-07 11:45 | DI.CT_ITS ---
Exam(s) CT NECK WO EXAM: CT NECK WO CLINICAL HISTORY: dysphasia, hx of laryngeal cancer TECHNIQUE: COMPARISON: CT CT NECK W from 07/11/2021 FINDINGS: CT examination of the cervical region was performed without contrast administration due to lack of IV access. Examination is compared to prior examination July 11 2021, prior examination showed l evel 1 to level 3 lymph nodes with maximum diameter about 8 millimeters, these are grossly unchanged on today's examination. No new bulky adenopathy.prior laryngectomy and tracheostomy noted. Prior re section right thyroid lobe again noted.no new cervical mass or abscess. Visualized lung apices are c lear. Salivary glands unremarkable appearance by noncontrast criteria. IMPRESSION: No significant interval change in appearance of the cervical region since July 2021 in a patient who is status post right thyroidectomy, laryngectomy, and tracheostomy. RADIATION DOSE DELIVERED: 701.81mGy.cm Total DLP !Error CTDIvol DATA REPOSITORY: All CT scans at this facility are submitted to the National Radiology Data Registry (NRDR) Dose Index Registry (DIR) with the [employer] ([employer]). RADIATION OPTIMIZATION: All CT scans at this facility use at least one of these dose optimization te chniques: automated exposure control; mA and/or kV adjustment per patient size (includes targeted exa ms where dose is matched to clinical indication); or iterative reconstruction.
--- NOTE | 2022-09-07 11:45 | NUR.NOTE ---
Nursing Note: Difficulty obtaining IV access/labs after multiple attempts.
[2022-09-07] MEDS: Dexamethasone 10 MG/ML VIAL IVP (13:09)
== END 2022-09-07 13:50 | disposition home or self-care (01) ==
PROVIDERS: Emergency Provider Physician Assistant; PCP Family Medicine
DX: R13.10 Dysphagia, unspecified (principal); Z93.0 Tracheostomy status
CPT/HCPCS: 80053; 96374; 99284; 70490; 84443; 85025; 99283; J1100